=== PATIENT | female | born 1955 | race Caucasian/White ===

== ENCOUNTER 2017-09-08 08:52 | Observation (INO) | payer MEDICAID, SELFPAY ==
[2017-09-08] VITALS (8 sets, daily range): BP systolic 132–198; BP diastolic 73–107; PULSE 84–107; RESP 13–22; TEMP 36.2–36.9; O2SAT 95–98; BMI 32.0; BMI 31.7
--- NOTE | 2017-09-08 09:17 | CT_ITS ---
STUDY: CT BRAIN WITHOUT CONTRAST REASON FOR EXAM: Female, 62 years old. One month history of dizziness. RADIATION DOSAGE (If Supplied By Facility): CTDIvol = ( 44.99 ) mGy, DLP = ( 829.85 ) mGycm TECHNIQUE: Transaxial CT imaging of the brain was performed without administration of intravenous contrast material. Individualized dose optimization techniques were used for this CT. COMPARISON: Comparison is made with prior study dated August 14, 2015. FINDINGS: Normal soft tissue structures. Normal calvarium. There is mild cerebral atrophy with widening of the extra-axial spaces and ventricular dilatation. Normal white matter tracts of the cerebral hemispheres. Normal basal ganglia and thalami. Normal brainstem. Normal cerebellum. There is no intracranial hemorrhage. There are no findings of an acute ischemic infarction. Atherosclerotic calcification of the cavernous portions of the internal carotid arteries bilaterally. Normal visualized paranasal sinuses. CT/Brain/Head without Contrast IMPRESSION: Chronic involutional changes of the brain. Electronically Signed: Doug Brown MD at 12:17 EDT Tel [phone], Service support ,
--- NOTE | 2017-09-08 09:17 | EKG12_ITS ---
Test Reason : DIZZINESS Blood Pressure : / mmHG Vent. Rate : 097 BPM Atrial Rate : 097 BPM P-R Int : 188 ms QRS Dur : 084 ms QT Int : 374 ms P-R-T Axes : 050 -18 -04 degrees QTc Int : 474 ms Normal sinus rhythm Septal infarct , age undetermined Abnormal ECG Confirmed by MILTON ARREOLA, JORY ([id number]), manuscript editor ITZEL QUAN ([id number]) on 09/13/2017 1:36:50 PM Referred By: Confirmed By:JORY ROSE MD
--- NOTE | 2017-09-08 09:17 | RAD_ITS ---
STUDY: X-RAY CHEST REASON FOR EXAM: Female, 62 years old. Hypertension. TECHNIQUE: Single AP portable view of the chest. COMPARISON: Comparison is made with prior study dated August 14, 2015. FINDINGS: Hyperinflation. The lungs are clear. There is no demonstrated pleural abnormality. There is mild cardiac enlargement. Normal mediastinum and josselin. Normal visualized pulmonary arteries. Normal visualized aortic arch and descending thoracic aorta. Normal visualized thoracic spine. Normal visualized ribs, clavicles, and shoulders. There is no demonstrated abnormality of the visualized soft tissue structures of the upper abdomen. RAD/Chest 1 View (Portable) IMPRESSION: Hyperinflation. Mild cardiomegaly. No acute abnormality is seen. Electronically Signed: Doug Brown MD at 10:28 EDT Tel [phone], Service support ,
[2017-09-08 10:01] LABS: Absolute Lymphocyte Count 1.49 X10^3/ul (0.83-4.51); Absolute Neutrophil Count 4.6 X10^3/uL (2.0-7.7); Basophil# 0.03 X10^3/uL; Basophil% 0.5 % (0-1); Eosinophil# 0.06 X10^3/uL; Eosinophils% 0.9 % (0-5); Hematocrit 44.1 % (37-47); Hemoglobin 14.8 g/dl (12.0-15.0); Lymphocyte # 1.49 X10^3/ul (4.0); Lymphocyte % 22.4 % (19-41); Mean Corp Hgb Conc 33.6 g/gl (32-36); Mean Corpuscular Hgb 30.3 pg (27.0-32.0); Mean Corpuscular Volume 90.4 fL (81-99); Mean Platelet Vol. 9.9 fl (6.2-12.0); Monocyte# 0.49 X10^3/uL; Monocyte% 7.4 % (0-10); Neutrophil # 4.58 X10^3/uL (2.7-7.7); Neutrophil % 68.6 % (47-70); Platelet Count 259 K/mm3 (150-450); RBC Distribution Width CV 13.8 % (11.6-14.6); RBC Distribution Width SD 45.6 fl (35.1-43.9); Red Blood Count 4.88 M/mm3 (4.2-5.4); White Blood Count 6.7 K/mm3 (4.4-11.0)
[2017-09-08 10:02] LABS: POSITIVE COUNT NO; POSITIVE DIFFERENTIAL NO; POSITIVE MORPHOLOGY NO
[2017-09-08 10:16] LABS: Anion Gap 6 (5-15); BUN 16 mg/dL (7-18); BUN/Creat Ratio 12.3 RATIO (10-20); Calcium,Total 8.7 mg/dL (8.5-10.1); Chloride 102 mmol/L (98-107); EST Glomerular Filtration Rate 44 mL/min (>60); Est Glom Filt Rate - Afr Amer 53 mL/min (>60); Estimated Creatinine Clearance 45.69 ml/min; Glucose 153 mg/dL (74-106); Potassium 4.5 mmol/L (3.5-5.1); Sodium Level 136 mmol/L (136-145)
[2017-09-08] MEDS: Acetaminophen 500 MG Tablet 1000 MG PO (10:32)
[2017-09-08] MEDS: 0.9% Normal Saline 1,000 ML 150 ML IV (10:33)
[2017-09-08 10:52] LABS: Bacteria 0 SEEN /hpf (None Seen); Mucous, Urine 0 SEEN /hpf (<or=2+)
[2017-09-08 10:54] LABS: Color, Urine Yellow (Yellow); Glucose, Dipstick Normal (Normal); Ketone-Dipstick Negative (Negative); Leukocyte Esterase-Dipstick 25 /ul (Negative); Nitrite-Dipstick Negative (Negative); Occult Blood-Urine 10 /ul (Negative); Protein-Dipstick 15 mg/dl (Negative); Urine Bilirubin Dipstick Negative (Negative); Urine Clarity Sl. Cloudy (Clear); Urine Urobilinogen Normal (Normal)
[2017-09-08 11:00] LABS: Red Blood Cells-Urine 0-5 SEEN /hpf (0-5); Squamous Epithelial Cells - UA 0-5 SEEN /hpf (5-10); White Blood Cells 0-5 SEEN /hpf (0-5)
[2017-09-08] MEDS: Ondansetron 4 MG/2 ML Vial IV (12:29)
--- NOTE | 2017-09-08 13:26 | ED.VISSUMM ---
- ER Visit Summary Date of Service: 09/08/17 Chief Complaint: [Dizziness] History of Present Illness: The patient is a 62 F [presents to the emergency department with dizziness that has been ongoing for 2-3 months. Patient states she has not been feeling well for almost a year now. Patient states that she has been falling frequently and is been very off balance. Patient states that she has to walk while holding onto colon. She finally came in today because she cannot do her activities of daily living and has had a hard time even wanting the shower due to the dizziness. Patient's had some intermittent sharp pains in her head. Patient's been under increased stress of late. Patient's had diarrhea for about a week.] Physical Examination: [HEENT-PERRLA, EOMI. Cranial nerves II through XII grossly intact. TMs clear. Mucous membranes moist. No adenopathy. Cardiovascular-regular rate and rhythm without murmur or ectopy Lungs-clear to auscultation, chest wall stable without crepitus or subcu emphysema Abdomen-normoactive bowel sounds, soft, nontender, no rebound or rigidity, no peritoneal signs. Neuro cmgo-fajszf-fnuu and heel hodge testing within normal limits, negative Romberg, negative pronator drift, fundi benign. Hallpike testing was negative for nystagmus Extremities-intact ?4, normal range of motion, normal pulses, atraumatic] Test Results: [EKG obtained arrival shows sinus rhythm with ventricular rate of 97 bpm with old septal infarct noted. CBC with differential showed a white count of 6.7, hemoglobin 14.8, hematocrit 44, platelets 259. Chemistries unremarkable. Troponin was less than 0.015. Orthostatic vital signs were negative. Chest x-ray showed some mild cardiomegaly and hyperinflation. CT scan of the brain without contrast showed chronic changes.] Emergency Department Course and Treatment: [Patient received normal saline] Treatment Plan: [Admit for further workup and evaluation of her dizziness]. At this point it is unclear the etiology of her dizziness and feeling of difficulty with balance. I feel patient will require further workup beyond our ability to perform in the emergency department. Disposition: [Admit] Impression: [Dizziness-etiology uncertain] This note was generated with [employer] dictation software. It may contain incorrect words, spelling, and punctuation that were not noted in review of the chart prior to signing ED Disposition - Plan for ED Patient: Chief Complaint: Dizziness Referrals: Crystal Earl MD [Primary Care Provider] -
--- NOTE | 2017-09-08 13:29 | ED.DCSUM_ITS ---
- ER Visit Summary Date of Service: 09/08/17 Chief Complaint: [Dizziness] History of Present Illness: The patient is a 62 F [presents to the emergency department with dizziness that has been ongoing for 2-3 months. Patient states she has not been feeling well for almost a year now. Patient states that she has been falling frequently and is been very off balance. Patient states that she has to walk while holding onto colon. She finally came in today because she cannot do her activities of daily living and has had a hard time even wanting the shower due to the dizziness. Patient's had some intermittent sharp pains in her head. Patient's been under increased stress of late. Patient's had diarrhea for about a week.] Physical Examination: [HEENT-PERRLA, EOMI. Cranial nerves II through XII grossly intact. TMs clear. Mucous membranes moist. No adenopathy. Cardiovascular-regular rate and rhythm without murmur or ectopy Lungs-clear to auscultation, chest wall stable without crepitus or subcu emphysema Abdomen-normoactive bowel sounds, soft, nontender, no rebound or rigidity, no peritoneal signs. Neuro pgyv-vkcpng-ctmn and heel hodge testing within normal limits, negative Romberg, negative pronator drift, fundi benign. Hallpike testing was negative for nystagmus Extremities-intact ?4, normal range of motion, normal pulses, atraumatic] Test Results: [EKG obtained arrival shows sinus rhythm with ventricular rate of 97 bpm with old septal infarct noted. CBC with differential showed a white count of 6.7, hemoglobin 14.8, hematocrit 44, platelets 259. Chemistries unremarkable. Troponin was less than 0.015. Orthostatic vital signs were negative. Chest x-ray showed some mild cardiomegaly and hyperinflation. CT scan of the brain without contrast showed chronic changes.] Emergency Department Course and Treatment: [Patient received normal saline] Treatment Plan: [Admit for further workup and evaluation of her dizziness]. At this point it is unclear the etiology of her dizziness and feeling of difficulty with balance. I feel patient will require further workup beyond our ability to perform in the emergency department. Disposition: [Admit] Impression: [Dizziness-etiology uncertain] This note was generated with [employer] dictation software. It may contain incorrect words, spelling, and punctuation that were not noted in review of the chart prior to signing ED Disposition - Plan for ED Patient: Chief Complaint: Dizziness Referrals: Crystal Earl MD [Primary Care Provider] -
--- NOTE | 2017-09-08 14:51 | MRI_ITS ---
STUDY: MRI BRAIN WITHOUT CONTRAST REASON FOR EXAM: Female, 62 years old. Weakness and dizziness TECHNIQUE: Standardized multiplanar fat and water weighted pulse sequences were obtained. COMPARISON: CT of the brain on September 08, 2017 FINDINGS: Mild atrophy and periventricular white matter ischemic changes without evidence for acute infarct.. There does appear to be an old lacunar infarct in the body of the left caudate nucleus extending into the deep white matter tracts Normal bilateral basal ganglia. Normal thalami. There is no extra-axial fluid accumulation. Normal flow voids within the major intracranial circulation suggesting patency by spin echo criteria. Normal sella turcica, pituitary gland, infundibular stalk, optic chiasm and hypothalamus. Normal tectal plate and pineal gland. Normal midbrain, delroy and medulla. Normal cerebellum. Normal basal cisterns. Normal bilateral temporal bones. Normal bilateral internal auditory canals. Postsurgical changes of the orbits.. Normal visualized paranasal sinuses. Normal calvarium and skull base. Normal visualized soft tissue structures. Normal visualized upper cervical spine. No change since prior exam MRI/Brain without Contrast IMPRESSION: Mild atrophy and periventricular white matter ischemic changes without evidence for acute infarct. Old lacunar infarct involving the body of the left caudate nucleus extending into the deep white matter tracts. Electronically Signed: Gianfranco Goyal MD at 16:49 EDT , Service support ,
[2017-09-08] MEDS: oxyCODONE 5 MG Tablet 10 MG PO ×2 (17:09→23:09)
[2017-09-08] MEDS: Lisinopril 20 MG Tablet PO (17:09)
--- NOTE | 2017-09-08 19:47 | PCM.HP.STD ---
Problem List (1) Lightheadedness Status: Acute (2) Unsteady gait Status: Acute (3) Headache Status: Acute Qualifiers: Headache type: unspecified Headache chronicity pattern: unspecified pattern History of Present Illness Date of Admission: 09/08/17 Chief Complaint: Lightheadedness, weakness, unsteady gait, headache The patient is a 62 year old F who was seen in the emergency room at [facility] with a chief complaint of lightheadedness, unsteady gait, and headache type pains. She complained that she is felt unsteady on her feet for the last 3 months, she complained to this examiner that she had pains shooting into her skull (pointing to her occipital area) that she described as jolts today. Patient states that she mentioned to her family doctor at her last physician's visit in June that she had trouble walking at times but according to the patient, there was no comment from the position. Patient also stated that earlier this year at her office visit, her blood pressure was elevated but she states she return to the office at a later date and her blood pressure was normal. Patient's blood pressure in the emergency room today is been highly elevated, labs were obtained on the patient and were remarkable for a creatinine of 1.3. Patient had a CT of the brain that showed only involutional changes. Patient will be placed into observation status on [facility] for complaints of lightheadedness and unsteady gait, she will undergo an MRI, she will be seen by PT and OT, her blood pressures will be monitored and her blood pressure medications may need to be adjusted. Past Medical History Past Medical History (Chronic Problems): Chronic Problems HTN (hypertension) (Chronic) Tobacco use disorder (Chronic) Esophageal reflux (Chronic) Depressive disorder (Chronic) Back ache (Chronic) Irritable bowel syndrome (IBS) (Chronic) Anxiety disorder (Chronic) Allergies duloxetine HCl [From Cymbalta] Adverse Reaction (Verified 09/08/17 08:58) Other morphine Adverse Reaction (Verified 09/08/17 08:58) Itching pramipexole di-HCl [From Mirapex] Adverse Reaction (Verified 09/08/17 08:58) Other Sulfa (Sulfonamide Antibiotics) Adverse Reaction (Verified 09/08/17 08:58) Unknown tramadol HCl [From Ultram] Adverse Reaction (Verified 09/08/17 08:58) Itching varenicline [From Chantix] Adverse Reaction (Verified 09/08/17 16:49) Unknown Home Medications: Ambulatory Orders Medication Instructions Recorded Acyclovir [Zovirax] 400 mg PO BID 08/20/13 Amitriptyline HCl [Elavil] 100 - 150 mg PO QHS 08/20/13 Lisinopril [Zestril] 10 mg PO DAILY 08/20/13 Nitroglycerin [Nitrostat] 0.4 mg SL PRN PRN 08/20/13 Oxycodone [Oxyir] 10 mg PO Q6H PRN PRN #40 tablet 09/05/13 Clonazepam [Klonopin] 1 mg PO QHS 08/14/15 Clopidogrel Bisulfate [Plavix] 75 mg PO DAILY 08/14/15 Metoprolol Tartrate [Lopressor 25 mg PO BID 08/14/15 (beta codie)] Tizanidine HCl [Zanaflex] 4 mg PO BID PRN PRN 08/14/15 Albuterol Inhaler [Ventolin Hfa 2 puff INHALATION Q4H PRN PRN 09/08/17 (SP)] Aspirin [Aspirin, Baby] 81 mg PO DAILY@0800 09/08/17 Atorvastatin Calcium [Lipitor] 80 mg PO QHS 09/08/17 Dicyclomine HCl [Bentyl] 10 mg PO ACHS 09/08/17 Nystatin Powder [Mycostatin Powder] 1 applic TOPICAL 4X/DAY PRN PRN 09/08/17 Omeprazole 40 mg PO BID 09/08/17 Polyethylene Glycol 3350 [Miralax] 17 gm PO DAILY 09/08/17 Triamcinolone 0.025% Cream 1 applic TOPICAL BID PRN 09/08/17 [Kenalog] Surgical History: - - Uterine suspension, coronary artery stent placement Psychiatric History: Anxiety, Depression THERAPY DIRECTOR History: No pertinent THERAPY DIRECTOR history Lives: Spouse/ Significant Other Smoking Status: Current every day smoker Tobacco Use: Cigarettes Alcohol: Occasional Drugs: None - *Family History Maternal History Items: No pertinent history - Patient was adopted Paternal History Items: No pertinent history - Was adopted Review of Systems Constitutional: Denies: Anorexia, Chills, Fever, Night Sweats, Malaise, Weakness, Weight Change, Fatigue Eyes: Denies: Blurred vision, Cataracts, Conjunctivae Inflammation, Double vision, Drainage, Eyelid Inflammation HEENT: Reports: Head Aches. Denies: Difficulty Hearing, Difficulty Swallowing, Dysphasia, Ear Pain, Eye Pain, Hearing Changes, Nasal bleeding, Nasal Congestion, Post Nasal Drip Cardiovascular: Reports: Light Headedness. Denies: Chest Pain, Claudication, Chest Pressure, Chest Tightness, Edema, Heaviness, Orthopnea, Palpitations, Paroxysmal Noc. Dyspnea, Syncope Respiratory: Denies: Cough, Hemoptysis, Pleuritic Pain, Shortness of Breath, Shortness of breath at rest, Shortness of breath upon exertion, Sputum production, Wheezing Gastrointestinal: Denies: Abdominal Pain, Constipation, Diarrhea, Hematemesis, Hematochezia, Nausea, Melena, Vomiting Genitourinary: Denies: Dysuria, Frequency, Hematuria, Hesitancy, Incontinence, Nocturia, Retention, Urgency Gynecological: Denies: Breast symptoms Musculoskeletal: Reports: Back Pain, Joint Pain. Denies: Foot Pain, Hand Pain, Joint stiffness, Joint swelling, Joint Tenderness, Leg Pain Skin: Denies: Dryness, Pruritis, Rash Neurological: Reports: Balance problems, Headaches. Denies: Blurred vision, Double vision, Change in Speech, Slurred speech, Confusion, Difficulty swallowing, Focal weakness, Numbness, Tingling, Tremor, Seizures Psychiatric: Reports: Anxiety, Depression. Denies: Homicidal Ideations, Suicidal Ideations Endocrine: Denies: Change in Body Habitus, Heat/ Cold Intolerance, Polydipsia, Polyuria Hematologic/ Lymphatic: Denies: Adenopathy, Anemia, Easy Bruising, Easy Bleeding, Petechiae, Purpura VTE Information - Inpt Only VTE Present on Admission: No VTE Mechan Device Prophylaxis: None VTE Pharm Prophylaxis ordered?: Yes Patient Problems: Active and Suspected Problems Lightheadedness (Acute) Unsteady gait (Acute) Headache (Acute) - Physical Exam General: Alert, Oriented x3, Cooperative, No apparent distress, Well developed, Well nourished HEENT: Atraumatic, PERRLA, EOMI, Normocephalic Oral: Moist Mucosa Neck: Supple, No JVD, Negative Carotid Bruits, No Nuchal Rigidity, Trachea Midline, Thyroid Normal Size and Texture Lungs: Clear to auscultation, Normal air movement, No rhonchi, No wheeze, No rales Cardiovascular: Regular rate, Regular Rhythm, Normal S1, Normal S2, No murmurs, No Ectopic Activity, PMI Normal, No rub noted, No Gallop Abdomen: Bowel Sounds Present, Soft, Non Tender, Non-Distended, No hernias noted Extremities: No clubbing, No cyanosis, No edema, Capillary Refill Less than 3 Seconds Skin: No rashes, No breakdown Musculoskeletal: No Tenderness to Palpation of Joints or Extremities Neurological: Cranial nerves II-XII grossly intact, Neuro grossly intact, Sensory exam intact to light touch and pain, Coordination normal Psych/Mental Status: Normal Affect, Appropriate, Alert and oriented to time, place, person, mood and affect Vital Signs Temp Pulse Resp BP Pulse Ox 98.1 F 90 20 H 180/93 H 96 09/08/17 14:24 09/08/17 14:24 09/08/17 14:24 09/08/17 14:24 09/08/17 14:24 Oxygen Delivery Method Room Air Weight: 97.5 kg Body Mass Index (BMI) 31.7 Intake and Output for Last 24 Hours 09/06/17 09/07/17 09/08/17 23:59 23:59 23:59 Intake Total 500 / 500 Balance 500 / 500 Assessment/Plan Active and Suspected Problems Lightheadedness (Acute) Unsteady gait (Acute) Headache (Acute) #1 lightheadedness-etiology unclear-possibly secondary to anxiety, [facility], she will undergo an MRI to rule out any strokes, she will be seen by PT and OT #2 hypertensive urgency-patient's blood pressure medications will be reviewed and adjusted if necessary #3 coronary artery disease #4 anxiety disorder #5 depressive disorder #6 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
--- NOTE | 2017-09-08 20:00 | HP.PCM_ITS ---
Problem List (1) Lightheadedness Status: Acute (2) Unsteady gait Status: Acute (3) Headache Status: Acute Qualifiers: Headache type: unspecified Headache chronicity pattern: unspecified pattern History of Present Illness Date of Admission: 09/08/17 Chief Complaint: Lightheadedness, weakness, unsteady gait, headache The patient is a 62 year old F who was seen in the emergency room at [facility] with a chief complaint of lightheadedness, unsteady gait, and headache type pains. She complained that she is felt unsteady on her feet for the last 3 months, she complained to this examiner that she had pains shooting into her skull (pointing to her occipital area) that she described as jolts today. Patient states that she mentioned to her family doctor at her last physician's visit in June that she had trouble walking at times but according to the patient, there was no comment from the position. Patient also stated that earlier this year at her office visit, her blood pressure was elevated but she states she return to the office at a later date and her blood pressure was normal. Patient's blood pressure in the emergency room today is been highly elevated, labs were obtained on the patient and were remarkable for a creatinine of 1.3. Patient had a CT of the brain that showed only involutional changes. Patient will be placed into observation status on [facility] for complaints of lightheadedness and unsteady gait, she will undergo an MRI, she will be seen by PT and OT, her blood pressures will be monitored and her blood pressure medications may need to be adjusted. Past Medical History Past Medical History (Chronic Problems): Chronic Problems HTN (hypertension) (Chronic) Tobacco use disorder (Chronic) Esophageal reflux (Chronic) Depressive disorder (Chronic) Back ache (Chronic) Irritable bowel syndrome (IBS) (Chronic) Anxiety disorder (Chronic) Allergies duloxetine HCl [From Cymbalta] Adverse Reaction (Verified 09/08/17 08:58) Other morphine Adverse Reaction (Verified 09/08/17 08:58) Itching pramipexole di-HCl [From Mirapex] Adverse Reaction (Verified 09/08/17 08:58) Other Sulfa (Sulfonamide Antibiotics) Adverse Reaction (Verified 09/08/17 08:58) Unknown tramadol HCl [From Ultram] Adverse Reaction (Verified 09/08/17 08:58) Itching varenicline [From Chantix] Adverse Reaction (Verified 09/08/17 16:49) Unknown Home Medications: Ambulatory Orders Medication Instructions Recorded Acyclovir [Zovirax] 400 mg PO BID 08/20/13 Amitriptyline HCl [Elavil] 100 - 150 mg PO QHS 08/20/13 Lisinopril [Zestril] 10 mg PO DAILY 08/20/13 Nitroglycerin [Nitrostat] 0.4 mg SL PRN PRN 08/20/13 Oxycodone [Oxyir] 10 mg PO Q6H PRN PRN #40 tablet 09/05/13 Clonazepam [Klonopin] 1 mg PO QHS 08/14/15 Clopidogrel Bisulfate [Plavix] 75 mg PO DAILY 08/14/15 Metoprolol Tartrate [Lopressor 25 mg PO BID 08/14/15 (beta codie)] Tizanidine HCl [Zanaflex] 4 mg PO BID PRN PRN 08/14/15 Albuterol Inhaler [Ventolin Hfa 2 puff INHALATION Q4H PRN PRN 09/08/17 (SP)] Aspirin [Aspirin, Baby] 81 mg PO DAILY@0800 09/08/17 Atorvastatin Calcium [Lipitor] 80 mg PO QHS 09/08/17 Dicyclomine HCl [Bentyl] 10 mg PO ACHS 09/08/17 Nystatin Powder [Mycostatin Powder] 1 applic TOPICAL 4X/DAY PRN PRN 09/08/17 Omeprazole 40 mg PO BID 09/08/17 Polyethylene Glycol 3350 [Miralax] 17 gm PO DAILY 09/08/17 Triamcinolone 0.025% Cream 1 applic TOPICAL BID PRN 09/08/17 [Kenalog] Surgical History: - - Uterine suspension, coronary artery stent placement Psychiatric History: Anxiety, Depression DEVELOPMENT INTERN History: No pertinent DEVELOPMENT INTERN history Lives: Spouse/ Significant Other Smoking Status: Current every day smoker Tobacco Use: Cigarettes Alcohol: Occasional Drugs: None - *Family History Maternal History Items: No pertinent history - Patient was adopted Paternal History Items: No pertinent history - Was adopted Review of Systems Constitutional: Denies: Anorexia, Chills, Fever, Night Sweats, Malaise, Weakness , Weight Change, Fatigue Eyes: Denies: Blurred vision, Cataracts, Conjunctivae Inflammation, Double vision, Drainage, Eyelid Inflammation HEENT: Reports: Head Aches. Denies: Difficulty Hearing, Difficulty Swallowing, Dysphasia, Ear Pain, Eye Pain, Hearing Changes, Nasal bleeding, Nasal Congestion , Post Nasal Drip Cardiovascular: Reports: Light Headedness. Denies: Chest Pain, Claudication, Chest Pressure, Chest Tightness, Edema, Heaviness, Orthopnea, Palpitations, Paroxysmal Noc. Dyspnea, Syncope Respiratory: Denies: Cough, Hemoptysis, Pleuritic Pain, Shortness of Breath, Shortness of breath at rest, Shortness of breath upon exertion, Sputum production, Wheezing Gastrointestinal: Denies: Abdominal Pain, Constipation, Diarrhea, Hematemesis, Hematochezia, Nausea, Melena, Vomiting Genitourinary: Denies: Dysuria, Frequency, Hematuria, Hesitancy, Incontinence, Nocturia, Retention, Urgency Gynecological: Denies: Breast symptoms Musculoskeletal: Reports: Back Pain, Joint Pain. Denies: Foot Pain, Hand Pain, Joint stiffness, Joint swelling, Joint Tenderness, Leg Pain Skin: Denies: Dryness, Pruritis, Rash Neurological: Reports: Balance problems, Headaches. Denies: Blurred vision, Double vision, Change in Speech, Slurred speech, Confusion, Difficulty swallowing, Focal weakness, Numbness, Tingling, Tremor, Seizures Psychiatric: Reports: Anxiety, Depression. Denies: Homicidal Ideations, Suicidal Ideations Endocrine: Denies: Change in Body Habitus, Heat/ Cold Intolerance, Polydipsia, Polyuria Hematologic/ Lymphatic: Denies: Adenopathy, Anemia, Easy Bruising, Easy Bleeding , Petechiae, Purpura VTE Information - Inpt Only VTE Present on Admission: No VTE Mechan Device Prophylaxis: None VTE Pharm Prophylaxis ordered?: Yes Patient Problems: Active and Suspected Problems Lightheadedness (Acute) Unsteady gait (Acute) Headache (Acute) - Physical Exam General: Alert, Oriented x3, Cooperative, No apparent distress, Well developed, Well nourished HEENT: Atraumatic, PERRLA, EOMI, Normocephalic Oral: Moist Mucosa Neck: Supple, No JVD, Negative Carotid Bruits, No Nuchal Rigidity, Trachea Midline, Thyroid Normal Size and Texture Lungs: Clear to auscultation, Normal air movement, No rhonchi, No wheeze, No rales Cardiovascular: Regular rate, Regular Rhythm, Normal S1, Normal S2, No murmurs, No Ectopic Activity, PMI Normal, No rub noted, No Gallop Abdomen: Bowel Sounds Present, Soft, Non Tender, Non-Distended, No hernias noted Extremities: No clubbing, No cyanosis, No edema, Capillary Refill Less than 3 Seconds Skin: No rashes, No breakdown Musculoskeletal: No Tenderness to Palpation of Joints or Extremities Neurological: Cranial nerves II-XII grossly intact, Neuro grossly intact, Sensory exam intact to light touch and pain, Coordination normal Psych/Mental Status: Normal Affect, Appropriate, Alert and oriented to time, place, person, mood and affect Vital Signs Temp Pulse Resp BP Pulse Ox 98.1 F 90 20 H 180/93 H 96 09/08/17 14:24 09/08/17 14:24 09/08/17 14:24 09/08/17 14:24 09/08/17 14:24 Oxygen Delivery Method Room Air Weight: 97.5 kg Body Mass Index (BMI) 31.7 Intake and Output for Last 24 Hours 09/06/17 09/07/17 09/08/17 23:59 23:59 23:59 Intake Total 500 / 500 Balance 500 / 500 Assessment/Plan Active and Suspected Problems Lightheadedness (Acute) Unsteady gait (Acute) Headache (Acute) #1 lightheadedness-etiology unclear-possibly secondary to anxiety, [facility], she will undergo an MRI to rule out any strokes, she will be seen by PT and OT #2 hypertensive urgency-patient's blood pressure medications will be reviewed and adjusted if necessary #3 coronary artery disease #4 anxiety disorder #5 depressive disorder #6 chronic pain syndrome due to DJD of the lower back Code Visit OBSV E&M: 84538 Initial observation care L3
[2017-09-08] MEDS: clonazePAM 0.5 MG Tablet 1 MG PO (21:19)
[2017-09-08] MEDS: Acyclovir 200 MG Capsule 400 MG PO (21:20)
[2017-09-08] MEDS: Metoprolol Tartrate 25 MG Tablet PO (21:20)
[2017-09-08] MEDS: Pantoprazole Sodium 40 MG Tablet PO (21:21)
[2017-09-08] MEDS: Amitriptyline 100 MG Tablet PO (21:21)
[2017-09-08] MEDS: Atorvastatin Calcium 80 MG Tablet PO (21:23)
[2017-09-08] MEDS: amLODIPine 5 MG Tablet PO (21:32)
[2017-09-09 03:56] VITALS: BP 135/71; PULSE 89; RESP 16; TEMP 37; O2SAT 93
[2017-09-09 07:27] VITALS: BP 141/73; PULSE 88; RESP 16; TEMP 36.4; O2SAT 96
[2017-09-09 07:31] LABS: Anion Gap 8 (5-15); BUN 18 mg/dL (7-18); BUN/Creat Ratio 14.4 RATIO (10-20); Calcium,Total 8.4 mg/dL (8.5-10.1); Chloride 101 mmol/L (98-107); Creatinine, Serum 1.25 mg/dL (0.55-1.02); EST Glomerular Filtration Rate 46 mL/min (>60); Est Glom Filt Rate - Afr Amer 56 mL/min (>60); Estimated Creatinine Clearance 47.52 ml/min; Glucose 130 mg/dL (74-106); Sodium Level 139 mmol/L (136-145)
[2017-09-09 07:36] VITALS: BP 141/73; PULSE 88
[2017-09-09] MEDS: Metoprolol Tartrate 25 MG Tablet PO (07:36)
[2017-09-09] MEDS: Aspirin 81 MG TAB.CHEW PO (07:36)
[2017-09-09] MEDS: Lisinopril 20 MG Tablet PO (07:36)
[2017-09-09] MEDS: oxyCODONE 5 MG Tablet 10 MG PO ×2 (07:39→14:06)
--- NOTE | 2017-09-09 08:32 | PCM.DC ---
- Discharge Diagnoses Current Active Problems: Current Active and Chronic Problems Lightheadedness (Acute) Unsteady gait (Acute) Headache (Acute) You will use the following diet at home:: Cardiac Allergies/Adverse Reactions: Allergies duloxetine HCl [From Cymbalta] Adverse Reaction (Verified 09/08/17 08:58) Other morphine Adverse Reaction (Verified 09/08/17 08:58) Itching pramipexole di-HCl [From Mirapex] Adverse Reaction (Verified 09/08/17 08:58) Other Sulfa (Sulfonamide Antibiotics) Adverse Reaction (Verified 09/08/17 08:58) Unknown tramadol HCl [From Ultram] Adverse Reaction (Verified 09/08/17 08:58) Itching varenicline [From Chantix] Adverse Reaction (Verified 09/08/17 16:49) Unknown Medications to take at Discharge Acyclovir [Zovirax] 400 mg PO BID 08/20/13 Amitriptyline HCl [Elavil] 100 - 150 mg PO QHS 08/20/13 Nitroglycerin [Nitrostat] 0.4 mg SL PRN PRN 08/20/13 Oxycodone [Oxyir] 10 mg PO Q6H PRN PRN #40 tablet 09/05/13 Clonazepam [Klonopin] 1 mg PO QHS 08/14/15 Clopidogrel Bisulfate [Plavix] 75 mg PO DAILY 08/14/15 Metoprolol Tartrate [Lopressor (beta codie)] 25 mg PO BID 08/14/15 Tizanidine HCl [Zanaflex] 4 mg PO BID PRN PRN 08/14/15 Albuterol Inhaler [Ventolin Hfa] 2 puff INHALATION Q4H PRN PRN 09/08/17 Aspirin [Aspirin, Baby] 81 mg PO DAILY@0800 09/08/17 Atorvastatin Calcium [Lipitor] 80 mg PO QHS 09/08/17 Dicyclomine HCl [Bentyl] 10 mg PO ACHS 09/08/17 Nystatin Powder [Mycostatin Powder] 1 applic TOPICAL 4X/DAY PRN PRN 09/08/17 Omeprazole 40 mg PO BID 09/08/17 Polyethylene Glycol 3350 [Miralax] 17 gm PO DAILY 09/08/17 Triamcinolone 0.025% Cream [Kenalog] 1 applic TOPICAL BID PRN 09/08/17 Amlodipine [Norvasc] 5 mg PO DAILY #60 tab 09/09/17 Lisinopril [Zestril] 20 mg PO DAILY #60 tab 09/09/17 The following prescriptions were given: Amlodipine [Norvasc] 5 mg PO DAILY #60 tab Lisinopril [Zestril] 20 mg PO DAILY #60 tab Primary Care Physician: Crystal Earl MD [Primary Care Provider] - Please follow up with your Primary Care Physician in: in 3-5 days Proposed Discharge Date: 09/09/17
--- NOTE | 2017-09-09 08:36 | DS.PCM_ITS ---
Discharge Date and Diagnosis - Problem List Patient Problems: Active and Suspected Problems Frequent falls (Acute) Lightheadedness (Acute) Unsteady gait (Acute) Headache (Acute) Date of Admission: 09/08/17 Date of Discharge: 09/09/17 - Primary Discharge Diagnosis Active and Suspected Problems Lightheadedness (Acute) Unsteady gait (Acute) Headache (Acute) - Secondary Discharge Diagnosis Chronic Problems HTN (hypertension) (Chronic) Tobacco use disorder (Chronic) Esophageal reflux (Chronic) Depressive disorder (Chronic) Back ache (Chronic) Irritable bowel syndrome (IBS) (Chronic) Anxiety disorder (Chronic) Hospital Course and Treatment Imaging Results: Clinical Impression(s) from Imaging Studies Brain CT 09/08/17 09:17 IMPRESSION: Chronic involutional changes of the brain. Electronically Signed: Doug Brown MD at 12:17 EDT Tel [phone], Service support , Chest X-Ray 09/08/17 09:17 IMPRESSION: Hyperinflation. Mild cardiomegaly. No acute abnormality is seen. Electronically Signed: Doug Brown MD at 10:28 EDT Tel [phone], Service support , Brain MRI 09/08/17 14:51 IMPRESSION: Mild atrophy and periventricular white matter ischemic changes without evidence for acute infarct. Old lacunar infarct involving the body of the left caudate nucleus extending into the deep white matter tracts. Electronically Signed: Gianfranco Goyal MD at 16:49 EDT , Service support , Lumbar Spine MRI 09/09/17 08:44 IMPRESSION: Multilevel degenerative changes, as described above. There is a dextroscoliosis. L4/5: There is a mild diffuse bulge. There is mild bilateral neuroforaminal stenosis. L5/S1: There is a mild diffuse bulge and a small central protrusion with an annular tear. There is mild bilateral neuroforaminal stenosis. Electronically Signed: Silvia Lopez MD at 12:41 EDT , Service support , Cervical Spine MRI 09/09/17 09:12 IMPRESSION: Multilevel degenerative changes, as described above. C3/4: There is small right foraminal protrusion. There is mild right neuroforaminal stenosis. C5/6: There is a diffuse disc osteophyte complex. There is moderate central canal stenosis and moderate to severe bilateral neuroforaminal stenosis. C6/7: There is a slight diffuse bulge. There is ligamentum flavum hypertrophy. There is mild central canal stenosis. Electronically Signed: Silvia Lopez MD at 12:30 EDT , Service support , Operations: None Summary of Care Provided: Patient is a 62 year old who with multiple comorbidities who presented with lightheadedness; was found to have markedly elevated blood pressure 1. Acute hypertensive emergency: Patient was admitted to regular nursing floor her home antihypertensive regimen was adjusted blood pressure had stabilized at the time of discharge 2. Bilateral lower extremity weakness with frequent falls neurology was consulted patient underwent subsequent evaluation with MRI of the brain which is negative for acute CVA also underwent MRI of the lumbar as well as cervical spine which demonstrated degenerative joint disease. Neurology recommended obtaining ESR, CPK, Vitamin B12, TSH, RANDY, RF, ANCA, SSA/SSB AB, SPEP with LISY and UPEP with LISY test ordered prior to patient discharge with plans for patient to follow-up with neurology for the result. Plan is also for patient to follow-up with neurology as outpatient for EMG and nerve conduction studies involving both lower extremities as outpatient 3. CAD with previous history of septal IA which was thought to be secondary to ruptured plaque patient underwent subsequent left heart catheterization which failed to demonstrate any obstructive lesions patient has since been managed with medical therapy 4. Hypertension patient blood pressure uncontrolled. Continue with home medications with doses adjusted as needed 5. Dyslipidemia patient is on atorvastatin did continue with home dose 6. Depression with anxiety patient is on both amitriptyline as well as clonazepam and continue with home doses 7. Tobacco dependence patient was counseled on cessation offered nicotine patch for tobacco cravings 8. Obesity with BMI of 32.1 9. DVT prophylaxis?Lovenox Discharge Diet: Low fat/ Low Cholesterol Home Medications: Medications to take at Discharge Acyclovir [Zovirax] 400 mg PO BID 08/20/13 Amitriptyline HCl [Elavil] 100 - 150 mg PO QHS 08/20/13 Nitroglycerin [Nitrostat] 0.4 mg SL PRN PRN 08/20/13 Oxycodone [Oxyir] 10 mg PO Q6H PRN PRN #40 tablet 09/05/13 Clonazepam [Klonopin] 1 mg PO QHS 08/14/15 Clopidogrel Bisulfate [Plavix] 75 mg PO DAILY 08/14/15 Metoprolol Tartrate [Lopressor (beta codie)] 25 mg PO BID 08/14/15 Tizanidine HCl [Zanaflex] 4 mg PO BID PRN PRN 08/14/15 Albuterol Inhaler [Ventolin Hfa] 2 puff INHALATION Q4H PRN PRN 09/08/17 Aspirin [Aspirin, Baby] 81 mg PO DAILY@0800 09/08/17 Atorvastatin Calcium [Lipitor] 80 mg PO QHS 09/08/17 Dicyclomine HCl [Bentyl] 10 mg PO ACHS 09/08/17 Nystatin Powder [Mycostatin Powder] 1 applic TOPICAL 4X/DAY PRN PRN 09/08/17 Omeprazole 40 mg PO BID 09/08/17 Polyethylene Glycol 3350 [Miralax] 17 gm PO DAILY 09/08/17 Triamcinolone 0.025% Cream [Kenalog] 1 applic TOPICAL BID PRN 09/08/17 Amlodipine [Norvasc] 5 mg PO DAILY #60 tab 09/09/17 Lisinopril [Zestril] 20 mg PO DAILY #60 tab 09/09/17 Following Prescrptions Were Given to Patient: Amlodipine [Norvasc] 5 mg PO DAILY #60 tab Lisinopril [Zestril] 20 mg PO DAILY #60 tab Primary Care Physician: Crystal Earl MD [Primary Care Provider] - Please follow up with your Primary Care Physician in: in 3-5 days Please Follow Up With: Jorge Mckenzie MD When: in 2-4 weeks Disposition: Home Minutes spent on discharge:: 35 Patient Condition:: Stable Medical Necessity - Tobacco Use Smoking Status: Current every day smoker Tobacco Use: Cigarettes Meaningful Use Info Meaningful Use Diagnoses (Choose all that apply): None applicable Code Visit OBSV E&M: 67215 Observation care discharge
--- NOTE | 2017-09-09 08:44 | MRI_ITS ---
STUDY: MRI LUMBAR SPINE WITHOUT CONTRAST REASON FOR EXAM: Female, 62 years old. increasing extremity weakness over the last few weeks TECHNIQUE: Standardized fat and water weighted pulse sequences were obtained in the sagittal and axial planes. COMPARISON: None FINDINGS: Normal lumbar lordosis. There is a dextroscoliosis of the lumbar spine. Normal conus medullaris that terminates at the T12-L1 level. There is no spondylolisthesis. There is severe loss of disc height at L4-5. There is loss of disc height at L5-S1. Vertebral body heights are maintained. There are Modic type II changes at L4-5. There is mild multilevel facet arthropathy and ligamentum flavum hypertrophy. T12/L1: Sagittal images only were obtained. Normal. L1/2: There is a minimal broad-based right paracentral protrusion causing impression on the right ventral thecal sac without neuroforaminal stenosis. L2/3: There is a minimal diffuse bulge causing impression on the ventral thecal sac and minimal right without left neuroforaminal stenosis. L3/4: There is a minimal right foraminal protrusion causing minimal right neuroforaminal stenosis without central canal or left neuroforaminal stenosis. L4/5: There is a mild diffuse bulge. There is no central canal stenosis. There is mild bilateral neuroforaminal stenosis. L5/S1: There is a mild diffuse bulge and a small central protrusion with an annular tear. There is no central canal stenosis. There is mild bilateral neuroforaminal stenosis. Normal visualized sacral ala. Normal visualized paraspinous soft tissue structures. MRI/Spine Lumbar (Routine) IMPRESSION: Multilevel degenerative changes, as described above. There is a dextroscoliosis. L4/5: There is a mild diffuse bulge. There is mild bilateral neuroforaminal stenosis. L5/S1: There is a mild diffuse bulge and a small central protrusion with an annular tear. There is mild bilateral neuroforaminal stenosis. Electronically Signed: Silvia Lopez MD at 12:41 EDT , Service support ,
[2017-09-09] MEDS: 0.9% NaCl Peripheral Flush Adult/Peds IV (09:11)
[2017-09-09] MEDS: LORazepam 2 MG/ML Syringe 1 MG IV (09:12)
--- NOTE | 2017-09-09 09:12 | MRI_ITS ---
STUDY: MRI CERVICAL SPINE WITHOUT CONTRAST REASON FOR EXAM: Female, 62 years old. increasing extremity weakness over the last few weeks TECHNIQUE: Standardized fat and water weighted pulse sequences were obtained in the sagittal and axial planes. COMPARISON: None FINDINGS: Normal foramen magnum and brainstem-cervical cord junction. Normal craniovertebral junction. Normal anterior atlantoaxial articulation. Normal odontoid process. Normal cervical lordosis. There is retrolisthesis at C5-6. There is severe loss of disc height at C5-6. Vertebral body heights are maintained. C2/3: Normal. C3/4: There is small right foraminal protrusion. There is no central canal or left neuroforaminal stenosis. There is mild right neuroforaminal stenosis. C4/5: There is small right foraminal protrusion. There is no central canal or neuroforaminal stenosis. C5/6: There is a diffuse disc osteophyte complex. There is moderate central canal stenosis and moderate to severe bilateral neuroforaminal stenosis. C6/7: There is a slight diffuse bulge. There is ligamentum flavum hypertrophy. There is mild central canal stenosis without neuroforaminal stenosis. C7/T1: Normal. Normal cervical cord. Normal visualized soft tissue structures. MRI/Spine Cervical (Routine) IMPRESSION: Multilevel degenerative changes, as described above. C3/4: There is small right foraminal protrusion. There is mild right neuroforaminal stenosis. C5/6: There is a diffuse disc osteophyte complex. There is moderate central canal stenosis and moderate to severe bilateral neuroforaminal stenosis. C6/7: There is a slight diffuse bulge. There is ligamentum flavum hypertrophy. There is mild central canal stenosis. Electronically Signed: Silvia Lopez MD at 12:30 EDT , Service support ,
--- NOTE | 2017-09-09 09:14 | NURSING ---
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 Lacey had ordered Ativan prn. This RN entered order and called pharmacy to have verified. Once verified this RN entered room and patient's bed unplugged and moved preparing for patient to be transported to MRI. This RN then gave med. Original Note: pt leaving unit at this time for MRI
--- NOTE | 2017-09-09 09:28 | NURSING ---
at 0923 this RN called MRI and notified them that patient has nicotene patch to right upper arm. Understanding verbalized.
--- NOTE | 2017-09-09 09:29 | NURSING ---
This RN called Dr. Mckenzies office to notify him of consult for patient. also notified answering service that patient is currently off unit for MRI. This RN was notified by tigre Sanford RN that Dr. Mckenzie had just left the unit and was upset that patient was not here.
--- NOTE | 2017-09-09 10:23 | CASEMGMT ---
Addendum entered by Raphael Collins 09/09/17 12:24: KIARRA LOVELACE discussed homegoing with pt. She has S.O. who can assist. Is ambulatory in room, awaiting MRI results to be completed prior to dc. Script for Tub Bench given. Pt will buy cane @ [employer]. Leighann BSN AC Original Note: KIARRA LOVELACE reviewed plan with Dr. Mckenzie who recommends PT/OT evaluations, he states can be completed prior to final read on MRI and pt may need possible transfer depending on MRI results (possible cord compression). KIARRA LOVELACE spoke with PT/OT re:and recommended if they have questions, can speak with physician. Will review their evaluation and assist with any dc planning needs. [facility]Network facilities if transfer is recommended: [facility], [facility], [facility], [facility], [facility], [facility], [facility], [facility].
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
[2017-09-09] MEDS: amLODIPine 5 MG Tablet PO (11:04)
[2017-09-09] MEDS: Acyclovir 200 MG Capsule 400 MG PO (11:04)
[2017-09-09] MEDS: Clopidogrel Bisulfate 75 MG Tablet PO (11:05)
--- NOTE | 2017-09-09 11:12 | NURSING ---
Addendum entered by Supriya Patel 09/09/17 11:49: dr. tian notified of same- states patient must wait until results of MRI return or she can leave AMA. Original Note: Patient becoming agitated that she is not discharged yet. Dr. Tian was in with patient this morning and stated that patient would need MRI, consult with Dr. Mckenzie and therapy prior. Patient reminded that therapy still has to see her and then we must wait for results of MRI. Patient angry and states that she will just get up and leave. Patient's significant other very effective in calming patient.
[2017-09-09 11:34] LABS: Thyroid Stim Hormone (TSH) 4.24 uIU/mL (0.358-3.74)
--- NOTE | 2017-09-09 12:53 | NURSING ---
Addendum entered by Supriya Patel 09/09/17 12:59: rose ortega called at this time and states that she just finished drawing labs that were ordered. Original Note: While Dr. Mckenzie was on unit- labs were ordered by him. This RN attempted to call lab to notify them, in case patient left AMA, however, phone was busy. At this time- was able to notify rose berry- that patient is anxious to leave and if labs could be drawn soon that would be preferrable.
--- NOTE | 2017-09-09 13:03 | NURSING ---
This RN texted Dr. Lacey notifying him that he can review the MRI results and also was asked to confirm pending discharge. Then, this RN called Dr. Mckenzie's office and notified them that the MRI results were available for him to review. Staff in office notified him of same.
[2017-09-09 13:25] LABS: Erythrocyte Sedimentation Rate 9 mm/hr (0-30)
[2017-09-09 13:30] VITALS: BP 132/72; PULSE 85; RESP 18; TEMP 36.9; O2SAT 95
[2017-09-09 13:41] LABS: CPK Total, Creatine Kinase 56 U/L (26-192)
[2017-09-09 13:45] LABS: CRP 8.43 mg/L (0.0-3.0)
[2017-09-09 14:00] LABS: Vitamin B12 419 pg/mL (211-911)
--- NOTE | 2017-09-09 14:34 | NURSING ---
Dr. Lacey called this RN and states it is ok to d/c patient at this time if a outpatient follow up appt is scheduled with Dr. Mckenzie's office prior to her leaving floor. Same completed by this RN and patient and significant other educated regarding appointment and date and time scheduled-= understanding verbalized.
[2017-09-12 14:52] LABS: ANTINUCLEAR ANTIBODIES DIRECT Negative (Negative)
[2017-09-14 14:08] LABS: Albumin 3.3 g/dL (2.9-4.4); Alpha-1-Globulins 0.3 g/dL (0.0-0.4); Alpha-2-Globulins 0.8 g/dL (0.4-1.0); Cytoplasmic Ab (C-ANCA) <1:20 titer (Neg:<1:20); Immunoglobulin A 170 mg/dL (87-352); Immunoglobulin G 794 mg/dL (700-1600); Immunoglobulin M 108 mg/dL (26-217); PROEL- TOTAL PROTEIN 6.5 g/dL (6.0-8.5)
[2017-09-14 14:16] LABS: Perinuclear Ab (P-ANCA) <1:20 titer (Neg:<1:20)
== END 2017-09-09 14:30 | disposition home or self-care (01) ==
LOC: ED 10:19 → MS2 14:02
PROVIDERS: Psychiatry & Neurology Neurology; Admitting Provider Internal Medicine; Emergency Provider Emergency Medicine; Family Provider Internal Medicine; PCP Internal Medicine; Visit Provider Internal Medicine
DX: R42 Dizziness and giddiness (principal); R51 Headache; R26.89 Other abnormalities of gait and mobility; I10 Essential (primary) hypertension; K21.9 Gastro-esophageal reflux disease without esophagitis; K58.9 Irritable bowel syndrome, unspecified; I16.1 Hypertensive emergency; I25.10 Atherosclerotic heart disease of native coronary artery without angina pectoris; E78.5 Hyperlipidemia, unspecified; F41.8 Other specified anxiety disorders; I25.2 Old myocardial infarction; R29.6 Repeated falls; F17.210 Nicotine dependence, cigarettes, uncomplicated; E66.9 Obesity, unspecified; Z79.899 Other long term (current) drug therapy; Z79.02 Long term (current) use of antithrombotics/antiplatelets; Z79.82 Long term (current) use of aspirin; Z68.31 Body mass index [BMI] 31.0-31.9, adult; Z71.3 Dietary counseling and surveillance; M47.896 Other spondylosis, lumbar region
CPT/HCPCS: 36415; 70450; 70551; 71045; 72141; 72148; 80048; 81001; 82550; 82607; 82784; 83036; 84165; 84166; 84443; 84484; 85025; 85652; 86038; 86140; 86225; 86226; 86235; 86256; 86334; 86335; 86431; 93005; 96361; 96374; 96375; 97162; 97166; 99218; 99285; 99406; J7030; A4216; G0378

== ENCOUNTER 2018-01-22 19:12 | Emergency (ER) | payer MEDICAID, SELFPAY ==
[2018-01-22 19:13] VITALS: BP 157/76; PULSE 89; RESP 18; TEMP 37.1; O2SAT 92; BMI 31.3
== END 2018-01-22 19:13 | disposition left against medical advice (07) ==
LOC: ED 20:04
PROVIDERS: Emergency Provider Emergency Medicine; Family Provider Internal Medicine; PCP Internal Medicine
DX: S40.811A Abrasion of right upper arm, initial encounter (principal)

== ENCOUNTER 2018-03-08 11:43 | Emergency (ER) | payer MEDICAID, SELFPAY ==
[2018-03-08] VITALS (8 sets, daily range): BP systolic 144–189; BP diastolic 62–94; PULSE 91–110; RESP 14–18; TEMP 36.7; O2SAT 95–97; BMI 31.0
--- NOTE | 2018-03-08 11:51 | EKG12_ITS ---
Test Reason : PSYCH CLEARANCE Blood Pressure : / mmHG Vent. Rate : 098 BPM Atrial Rate : 098 BPM P-R Int : 208 ms QRS Dur : 120 ms QT Int : 374 ms P-R-T Axes : 075 -43 083 degrees QTc Int : 477 ms Sinus rhythm with Premature atrial complexes Left axis deviation Left ventricular hypertrophy with QRS widening and repolarization abnormality Cannot rule out Septal infarct , age undetermined Abnormal ECG Confirmed by MILTON ARREOLA, JORY ([id number]), assistant editor ITZEL QUAN ([id number]) on 03/09/2018 3:51:35 PM Referred By: SUZANNA Confirmed By:JORY ROSE MD
[2018-03-08 12:19] LABS: Bacteria 0 SEEN /hpf (None Seen); Mucous, Urine 0 SEEN /hpf (<or=2+); Red Blood Cells-Urine 0 SEEN /hpf (0-5)
[2018-03-08 12:29] LABS: Absolute Lymphocyte Count 2.46 X10^3/ul (0.83-4.51); Absolute Neutrophil Count 5.2 X10^3/uL (2.0-7.7); Basophil# 0.02 X10^3/uL; Basophil% 0.2 % (0-1); Eosinophil# 0.11 X10^3/uL; Eosinophils% 1.3 % (0-5); Hematocrit 44.6 % (37-47); Hemoglobin 14.6 g/dl (12.0-15.0); Lymphocyte # 2.46 X10^3/ul (4.0); Lymphocyte % 29.4 % (19-41); Mean Corp Hgb Conc 32.7 g/gl (32-36); Mean Corpuscular Hgb 31.3 pg (27.0-32.0); Mean Corpuscular Volume 95.7 fL (81-99); Mean Platelet Vol. 9.6 fl (6.2-12.0); Monocyte# 0.54 X10^3/uL; Monocyte% 6.4 % (0-10); Neutrophil # 5.24 X10^3/uL (2.7-7.7); Neutrophil % 62.6 % (47-70); POSITIVE COUNT NO; POSITIVE DIFFERENTIAL NO; POSITIVE MORPHOLOGY NO; Platelet Count 249 K/mm3 (150-450); RBC Distribution Width CV 14.7 % (11.6-14.6); RBC Distribution Width SD 50.9 fl (35.1-43.9); Red Blood Count 4.66 M/mm3 (4.2-5.4); White Blood Count 8.4 K/mm3 (4.4-11.0)
--- NOTE | 2018-03-08 12:32 | CT_ITS ---
STUDY: CT BRAIN WITHOUT CONTRAST REASON FOR EXAM: Female, 62 years old. Trauma. Alcohol abuse. RADIATION DOSAGE (If Supplied By Facility): CTDIvol = ( 44.99 ) mGy, DLP = ( 812.98 ) mGycm TECHNIQUE: Transaxial CT imaging of the brain was performed without administration of intravenous contrast material. Individualized dose optimization techniques were used for this CT. COMPARISON: Comparison is made with prior study dated September 08, 2017. FINDINGS: Normal soft tissue structures. Normal calvarium. There is mild cerebral atrophy with widening of the extra-axial spaces and ventricular dilatation. Normal white matter tracts of the cerebral hemispheres. Normal basal ganglia and thalami. Normal brainstem. Normal cerebellum. There is no intracranial hemorrhage. There are no findings of an acute ischemic infarction. Atherosclerotic calcification of the cavernous portions of the internal carotid artery bilaterally. Normal visualized paranasal sinuses. CT/Brain/Head without Contrast IMPRESSION: Chronic involutional changes of the brain. Electronically Signed: Doug Brown MD at 13:12 EST Tel [phone], Service support ,
[2018-03-08 12:36] LABS: Color, Urine Straw (Yellow)
[2018-03-08 12:37] LABS: Urine Clarity Sl Cldy (Clear)
--- NOTE | 2018-03-08 12:37 | ED.DCSUM_ITS ---
- ER Visit Summary Date of Service: 03/08/18 Chief Complaint: Depression with suicidal thoughts History of Present Illness: The patient is a 62 F who has had a long-standing history of depression anxiety and PTSD. She was in counseling and quit and is recently restarted counseling. She is finding it hard to get to counseling due to her anxiety and do to her being drunk. Therefore her counselor made it so that she would come to the house and do counseling. Today the patient could not guarantee her safety once the counselor left and so they came to the hospital. Patient goes through 2 large dogs of whiskey within 1 week per the . She is a smoker. The patient states that in the end of December she fell causing a laceration to her hand but started screaming in the emergency department and left without having it being treated and now states that it is healed. She states that she has fallen numerous times because of the alcohol and broke her glasses recently. She denies any current headache or neurologic weakness. She denies any change in her medications. She is on Plavix and aspirin. She has a known heart cath with stent placement about 6 years ago. Physical Examination: Afebrile vital signs are stable Gen: Well-nourished well-developed Head: Normocephalic atraumatic Eyes: Perrl EOMI patient's glasses are broken and bread tied together ENT: TMs clear no rhinorrhea moist mucous membranes Neck: Supple no lymphadenopathy no JVD nontender CVS: Regular rate rhythm no murmurs normal S1-S2 Respiratory: No distress clear to auscultation bilaterally chest nontender Abdomen: Soft nontender nondistended normal bowel sounds no masses Back: Nontender Extremity: Nontender no edema healed right palmar laceration Skin: Normal color no rash Neuro: alert orientated ?3 CN II-XII intact normal strength sensation reflexes gait cerebellar Psych: Patient is tearful. Patient admits to being depressed. She has suicidal thoughts but no plan. Test Results: EKG showed a sinus rhythm. No ectopy. Chest x-ray negative. CT of the brain showed no subdural or other intracranial hemorrhage or fracture. CBC CMP creatinine 1.13. Alk phos 136. Urinalysis negative. TSH 1.72. Magnesium 2.4. Urine drugs abuse negative. Alcohol level 246. Emergency Department Course and Treatment: Will need to metabolize her alcohol in order to be cleared for crisis. This should take roughly 7 hours. After t hat time patient will be reassessed and crisis will be called to assist in disposition. Impression: 1. Suicidal ideation 2. Major depression 3. Alcohol abuse 4. Alcohol intoxication This note was generated with [employer] dictation software. It may contain incorrect words, spelling, and punctuation that were not noted in review of the chart prior to signing <Sheldon Hurtado - Last Filed: 03/08/18 13:15> - ER Visit Summary Patient checked out to me. She remained cooperative during her visit. Her alcohol was repeated, proved to be lower, and she was evaluated by crisis. She was deemed stable for safety contract and close outpatient follow-up with discharge home with her significant other, with whom she lives and he is comfortable with this plan. Patient states she is not suicidal, cares deeply about her significant other and her dog, and would not kill herself, and does not remember saying the things to the counselor indicating that she might do so. <Aravind Carter - Last Filed: 03/08/18 21:24> ED Disposition <Sheldon Hurtado - Last Filed: 03/08/18 13:15> <Aravind Carter - Last Filed: 03/08/18 21:24> - Plan for ED Patient: Disposition: Home or Assisted Living Chief Complaint: Suicidal Diagnosis: Suicidal thoughts, Alcohol intoxication Instructions: ED Depression, ED Contract, No Harm Referrals: Counseling,Center [GROUP OF PHYSICIANS] - As soon as possible
[2018-03-08 12:38] LABS: Leukocyte Esterase-Dipstick 1+ /ul (Negative); Nitrite-Dipstick Negative (Negative); Protein-Dipstick 15 mg/dl (Negative)
[2018-03-08 12:39] LABS: Glucose, Dipstick NEGATIVE (Normal); Ketone-Dipstick Negative (Negative); Occult Blood-Urine Negative /ul (Negative); Urine Bilirubin Dipstick Negative (Negative); Urine Urobilinogen Normal (Normal)
[2018-03-08 12:40] LABS: Amphetamine Urine VISTA NEGATIVE (<1000 ng/mL); Barbiturate Urine VISTA NEGATIVE (< 200 ng/mL); Benzodiazepine Urine VISTA NEGATIVE (< 200 ng/mL); Cocaine Urine VISTA NEGATIVE (< 300 ng/mL); Ecstacy Urine VISTA NEGATIVE (< 500 ng/mL); Methadone Urine VISTA NEGATIVE (< 300 ng/mL); PCP Urine VISTA NEGATIVE (< 25 ng/mL); THC Urine VISTA NEGATIVE (< 50 ng/mL); Vista UDS pH Range 6
[2018-03-08 12:41] LABS: AST(SGOT) 27 U/L (15-37); Alanine Aminotransfer ALT/SGPT 37 U/L (13-56); Alkaline Phosphatase 136 U/L (45-117); Bilirubin, Direct 0.09 mg/dL (0.00-0.30); Globulin 4.2 g/dL (2.2-4.2); Protein, Total 8.2 g/dL (6.4-8.2)
[2018-03-08 12:44] LABS: Squamous Epithelial Cells - UA 0-5 SEEN /hpf (5-10); White Blood Cells 0-5 SEEN /hpf (0-5)
[2018-03-08 12:46] LABS: Anion Gap 8 (5-15); BUN 17 mg/dL (7-18); Calcium,Total 8.9 mg/dL (8.5-10.1); Chloride 103 mmol/L (98-107); Creatinine, Serum 1.13 mg/dL (0.55-1.02); EST Glomerular Filtration Rate 51 mL/min (>60); Est Glom Filt Rate - Afr Amer 62 mL/min (>60); Estimated Creatinine Clearance 52.56 ml/min; Glucose 118 mg/dL (74-106); Lipase 89 U/L (73-393); Sodium Level 137 mmol/L (136-145); Thyroid Stim Hormone (TSH) 1.72 uIU/mL (0.358-3.74)
--- NOTE | 2018-03-08 12:50 | RAD_ITS ---
STUDY: X-RAY CHEST REASON FOR EXAM: Female, 62 years old. Suicidal ideation. TECHNIQUE: AP and lateral views of the chest. COMPARISON: Comparison is made with prior examination dated September 08, 2017. FINDINGS: The lungs are clear and expanded. There is no demonstrated pleural abnormality. There is borderline cardiomegaly. Normal mediastinum and josselin. Normal visualized pulmonary arteries. Normal visualized aortic arch and descending thoracic aorta. There is demineralization of the osseous structures. Normal visualized ribs, clavicles, and shoulders. There is no demonstrated abnormality of the visualized soft tissue structures of the upper abdomen. RAD/Chest PA and Lateral IMPRESSION: Normal x-ray examination of the chest. Electronically Signed: Doug Brown MD at 13:15 EST Tel [phone], Service support ,
[2018-03-08 12:54] LABS: Magnesium 2.4 mg/dL (1.6-2.6)
[2018-03-08] MEDS: Pantoprazole Sodium 40 MG Tablet PO (20:47)
[2018-03-08] MEDS: oxyCODONE 5 MG Tablet 10 MG PO (20:47)
--- NOTE | 2018-03-08 20:52 | ED.RN ---
PT IS NOW MEDICALLY CLEARED SO JACK FROM CRISIS IS GOING TO SEE PT.
[2018-03-08] MEDS: clonazePAM 1 MG Tablet PO (20:53)
== END 2018-03-08 21:40 | disposition home or self-care (01) ==
PROVIDERS: Emergency Provider Emergency Medicine; Family Provider Internal Medicine; PCP Internal Medicine
DX: R45.851 Suicidal ideations (principal); F32.9 Major depressive disorder, single episode, unspecified; F10.129 Alcohol abuse with intoxication, unspecified; Y90.8 Blood alcohol level of 240 mg/100 ml or more; F41.9 Anxiety disorder, unspecified; F43.10 Post-traumatic stress disorder, unspecified; F17.200 Nicotine dependence, unspecified, uncomplicated; I25.10 Atherosclerotic heart disease of native coronary artery without angina pectoris; I10 Essential (primary) hypertension; E78.00 Pure hypercholesterolemia, unspecified; K21.9 Gastro-esophageal reflux disease without esophagitis; Z79.02 Long term (current) use of antithrombotics/antiplatelets; Z79.82 Long term (current) use of aspirin; Z79.891 Long term (current) use of opiate analgesic; Z79.899 Other long term (current) drug therapy
CPT/HCPCS: 70450; 71046; 80048; 80076; 80307; 80320; 81001; 83690; 83735; 84443; 85025; 93005; 99285; G0480

== ENCOUNTER 2018-07-16 10:40 | Emergency (ER) | payer MEDICAID, SELFPAY ==
[2018-07-16 10:41] VITALS: BP 157/75; PULSE 86; RESP 13; TEMP 36.9; O2SAT 96; BMI 32.1
[2018-07-16 10:46] VITALS: BP 157/68; PULSE 83; RESP 18; O2SAT 96
--- NOTE | 2018-07-16 11:03 | ED.VISSUMM ---
- ER Visit Summary Date of Service: 07/16/18 Chief Complaint: Blood in stool History of Present Illness: The patient is a 63 F who presents to the emergency department today with 1 month of blood in her stool. She states that occasionally she has to strain. She denies any rectal pain. She states that sometimes she will have blood just on the toilet paper sometimes she will have blood in the water. She notes that today her stool was green. She states that she has an irritable bowel-like syndrome with her agoraphobia. She states she had a colonoscopy 3-4 years ago that per her was negative. She does not remember who did it. She is on Plavix and aspirin. She also states that she frequently falls. This is been going on greater than 1 year. She states that she believes she mentioned that to her doctor. Review of her chart shows that she was actually hospitalized in August 2017 for this. She had neurology consultation as well as MRIs of the brain neck and lumbar spine. She also had physical therapy evaluation. She utilizes a cane, walker, or wheelchair she tells me however that is not which she is most concerned about. She states she is more concerned about her blood in the stool. She states that she feels dizzy and weak. However that is not new over the past month. No syncope. Physical Examination: Afebrile vital signs stable Gen: Well-nourished well-developed obese Head: Normocephalic atraumatic Eyes: Perrl EOMI ENT: TMs clear no rhinorrhea moist mucous membranes Neck: Supple no lymphadenopathy no JVD nontender CVS: Regular rate rhythm no murmurs normal S1-S2 Respiratory: No distress clear to auscultation bilaterally chest nontender Abdomen: Soft nontender nondistended normal bowel sounds no masses Back: Nontender Extremity: Nontender no edema Skin: Normal color no rash Neuro: alert orientated ?3 CN II-XII intact normal strength sensation normal patellar deep tendon reflex Psych: Normal affect normal mood Test Results: Hemoglobin 13.5. Normal platelet count. Glucose 161 BUN of 19 creatinine 1.42. Emergency Department Course and Treatment: This appears to be a stable lower GI bleed. Given that she strains is most likely hemorrhoidal in nature. Patient will be referred to primary care and was advised she may need to have a repeat colonoscopy. She is to avoid straining. I do not believe patient requires admission. I do not believe that the falls are outside sales representative acute emergency Impression: 1. Stable lower GI bleed This note was generated with [employer] dictation software. It may contain incorrect words, spelling, and punctuation that were not noted in review of the chart prior to signing ED Disposition - Plan for ED Patient: Disposition: Home or Assisted Living Instructions: ED Hematochezia Stable Referrals: Crystal Earl MD [Primary Care Provider] - (call to arrange follow up)
[2018-07-16 11:07] LABS: Absolute Lymphocyte Count 1.45 X10^3/ul (0.83-4.51); Absolute Neutrophil Count 4.8 X10^3/uL (2.0-7.7); Basophil# 0.02 X10^3/uL; Basophil% 0.3 % (0-1); Eosinophil# 0.07 X10^3/uL; Hematocrit 43.1 % (37-47); Hemoglobin 13.5 g/dl (12.0-15.0); Lymphocyte # 1.45 X10^3/ul (4.0); Lymphocyte % 21.3 % (19-41); Mean Corp Hgb Conc 31.3 g/gl (32-36); Mean Corpuscular Hgb 29.5 pg (27.0-32.0); Mean Corpuscular Volume 94.3 fL (81-99); Mean Platelet Vol. 9.9 fl (6.2-12.0); Monocyte# 0.47 X10^3/uL; Monocyte% 6.9 % (0-10); Neutrophil % 70.4 % (47-70); POSITIVE COUNT NO; POSITIVE DIFFERENTIAL NO; POSITIVE MORPHOLOGY NO; Platelet Count 290 K/mm3 (150-450); RBC Distribution Width CV 14.2 % (11.6-14.6); RBC Distribution Width SD 47.2 fl (35.1-43.9); Red Blood Count 4.57 M/mm3 (4.2-5.4); White Blood Count 6.8 K/mm3 (4.4-11.0)
[2018-07-16 11:21] LABS: Anion Gap 4 (5-15); BUN 19 mg/dL (7-18); BUN/Creat Ratio 13.4 RATIO (10-20); Calcium,Total 8.2 mg/dL (8.5-10.1); Chloride 101 mmol/L (98-107); Creatinine, Serum 1.42 mg/dL (0.55-1.02); EST Glomerular Filtration Rate 40 mL/min (>60); Est Glom Filt Rate - Afr Amer 48 mL/min (>60); Estimated Creatinine Clearance 41.28 ml/min; Glucose 161 mg/dL (74-106); Potassium 4.1 mmol/L (3.5-5.1); Sodium Level 135 mmol/L (136-145)
[2018-07-16 11:31] VITALS: BP 155/79; PULSE 87; RESP 18; O2SAT 93
[2018-07-16 11:57] VITALS: BP 155/79; PULSE 84; RESP 16; O2SAT 95
== END 2018-07-16 12:03 | disposition home or self-care (01) ==
PROVIDERS: Emergency Provider Emergency Medicine; Family Provider Internal Medicine; PCP Internal Medicine
DX: K92.1 Melena (principal); Z79.02 Long term (current) use of antithrombotics/antiplatelets; Z79.82 Long term (current) use of aspirin; Z79.891 Long term (current) use of opiate analgesic; Z79.899 Other long term (current) drug therapy
CPT/HCPCS: 80048; 85025; 99284; A4216

== ENCOUNTER 2018-07-25 09:39 | Emergency (ER) | payer MEDICAID, SELFPAY ==
[2018-07-25 09:40] VITALS: BP 185/90; PULSE 116; RESP 15; TEMP 36.6; O2SAT 92; BMI 32.5
--- NOTE | 2018-07-25 09:49 | CT_ITS ---
STUDY: CT ABDOMEN AND PELVIS WITHOUT CONTRAST REASON FOR EXAM: Female, 63 years old. Lower abdominal pain. Bloody stool. RADIATION DOSAGE (If Supplied By Facility): CTDIvol = ( 19.98 ) mGy, DLP = ( 1124.91 ) mGycm TECHNIQUE: Transaxial images were obtained from the dome of the diaphragm to the symphysis pubis without oral contrast, and without intravenous contrast. Sagittal and coronal images were reconstructed. Individualized dose optimization techniques were used for this CT. COMPARISON: Comparison is made with prior study dated September 04, 2013. FINDINGS: Minimal degree of increased markings at the lung bases suggestive of atelectasis. The visualized portions of the heart are within normal limits. There is decreased attenuation of the liver consistent with steatosis. Normal gallbladder and extrahepatic biliary system. Normal spleen. Normal pancreas. Normal bilateral adrenal glands. Normal right kidney. Normal left kidney. There is a small hiatal hernia. Normal small intestine. Normal colon. The appendix is visualized and appears normal. There is scattered atherosclerotic calcification of the abdominal aorta, without a demonstrated aneurysm. Normal inferior vena cava. Normal retroperitoneum. Normal urinary bladder. There is a small umbilical hernia containing fat. There are degenerative changes of the visualized lumbar spine. CT/Abdomen/Pelvis W IV Cont ONLY IMPRESSION: Fatty infiltration of the liver. Electronically Signed: Doug Brown, at 11:26 EDT , Service support ,
--- NOTE | 2018-07-25 09:52 | ED.VISSUMM ---
- ER Visit Summary Date of Service: 07/25/18 Chief Complaint: Blood per rectum History of Present Illness: The patient is a 63 F presents with blood from her rectum. The patient states she is been dealing with this for over a month. She states that normally, she will get constipated because she is on multiple chronic pain medications. She states she will have some trace blood she moves her bowels. She was actually seen here about 10 days ago for the same complaint. Her labs at that time are unremarkable. She states the blood is been getting more frequent. Aspirin and Plavix for history of prior IN.. She does have history of prior alcohol abuse. Over the past 2 days, she is developed some crampy abdominal pain in her bilateral lower quadrants. She is also felt mildly lightheaded. Physical Examination: Vital signs reviewed General: Well-nourished, well-developed Head: Normocephalic, atraumatic Eyes: Pupils equal and reactive, extraocular muscles intact Neck, supple, no lymphadenopathy Heart: Regular rate and rhythm Respiratory: No distress, clear bilaterally Abdomen: Soft, nontender, nondistended, no peritoneal signs Back: Nontender Extremities: Nontender, no edema, no cords Skin: Normal color no rash Neuro: Alert and oriented, no focal or lateralizing deficits Test Results: [] Emergency Department Course and Treatment: Rectal exam was done with female nurse track moving machine operator. There was no gross blood visible. It was guaiac positive. IV was established. Screening labs were obtained. The patient's hemoglobin is normal. It is unchanged from 2 weeks ago. I did obtain a CT to rule out any dangerous intra-abdominal process given her cramping. This is also unremarkable. This patient has had stable rectal bleeding for over a month with no significant change in hemoglobin I do feel that she is safe for outpatient workup. I did discuss the patient with Dr. Wynn, who she is seen in the past. He is comfortable with plan for arranging outpatient colonoscopy. The patient was counseled on concerning symptoms and will be discharged home. Treatment Plan: [] Disposition: Discharge Impression: 1. Stable rectal bleeding This note was generated with [employer] software. It may contain incorrect words, spelling, and punctuation that were not noted in review of the chart prior to signing ED Disposition - Plan for ED Patient: Instructions: ED Hematochezia Stable Referrals: Gary Garcia MD [STAFF PHYSICIAN] - 2 Days
[2018-07-25 10:19] LABS: Absolute Lymphocyte Count 1.18 X10^3/ul (0.83-4.51); Absolute Neutrophil Count 4.4 X10^3/uL (2.0-7.7); Basophil# 0.02 X10^3/uL; Basophil% 0.3 % (0-1); Eosinophil# 0.08 X10^3/uL; Eosinophils% 1.3 % (0-5); Hemoglobin 13.1 g/dl (12.0-15.0); Lymphocyte # 1.18 X10^3/ul (4.0); Lymphocyte % 19.3 % (19-41); Mean Corp Hgb Conc 31.2 g/gl (32-36); Mean Corpuscular Volume 93.1 fL (81-99); Mean Platelet Vol. 10.1 fl (6.2-12.0); Monocyte# 0.41 X10^3/uL; Monocyte% 6.7 % (0-10); Neutrophil # 4.39 X10^3/uL (2.7-7.7); Neutrophil % 72.1 % (47-70); Platelet Count 287 K/mm3 (150-450); RBC Distribution Width CV 14.5 % (11.6-14.6); RBC Distribution Width SD 47.2 fl (35.1-43.9); Red Blood Count 4.51 M/mm3 (4.2-5.4); White Blood Count 6.1 K/mm3 (4.4-11.0)
[2018-07-25] MEDS: Ondansetron 4 MG/2 ML Vial IV (10:19)
[2018-07-25] MEDS: 0.9% Normal Saline 1,000 ML 1000 ML IV (10:19)
[2018-07-25 10:23] LABS: POSITIVE COUNT NO; POSITIVE DIFFERENTIAL NO; POSITIVE MORPHOLOGY NO
[2018-07-25 10:38] LABS: AST(SGOT) 22 U/L (15-37); Alanine Aminotransfer ALT/SGPT 37 U/L (13-56); Albumin, Serum 3.9 g/dL (3.2-5.0); Alkaline Phosphatase 145 U/L (45-117); Anion Gap 5 (5-15); BUN 18 mg/dL (7-18); BUN/Creat Ratio 13.2 RATIO (10-20); Calcium,Total 8.7 mg/dL (8.5-10.1); Chloride 102 mmol/L (98-107); Creatinine, Serum 1.36 mg/dL (0.55-1.02); EST Glomerular Filtration Rate 42 mL/min (>60); Est Glom Filt Rate - Afr Amer 50 mL/min (>60); Globulin 3.9 g/dL (2.2-4.2); Glucose 176 mg/dL (74-106); Potassium 4.2 mmol/L (3.5-5.1); Protein, Total 7.8 g/dL (6.4-8.2); Sodium Level 137 mmol/L (136-145)
[2018-07-25 11:25] LABS: International Normalized Ratio 1.2; Partial Thromboplast Time 27.5 Seconds (24.1-36.2); Prothrombin Time (Protime)PT. 15.2 SECONDS (11.7-14.9)
[2018-07-25 11:55] VITALS: BP 180/80; PULSE 98; RESP 18; O2SAT 96
== END 2018-07-25 11:57 | disposition home or self-care (01) ==
PROVIDERS: Emergency Provider Emergency Medicine; Family Provider Internal Medicine; PCP Internal Medicine
DX: K62.5 Hemorrhage of anus and rectum (principal); I25.2 Old myocardial infarction; Z79.02 Long term (current) use of antithrombotics/antiplatelets; Z79.82 Long term (current) use of aspirin
CPT/HCPCS: 74177; 80053; 82274; 85025; 85610; 85730; 86850; 86900; 96374; 99283; J7030; Q9967; A4216; J2405

== ENCOUNTER 2018-07-27 09:29 | Inpatient (IN) | payer MEDICAID, SELFPAY ==
[2018-07-27] VITALS (25 sets, daily range): BP systolic 90–170; BP diastolic 51–77; PULSE 72–89; RESP 14–31; TEMP 36.1–37.2; O2SAT 88–99; BMI 34.0; BMI 33.5
--- NOTE | 2018-07-27 09:38 | ED.RN ---
PT C/O LUQ ABD PAIN INTERMITTENTLY. PT HAS APPT TO SEE DR GOTTI FOR GI BLEED.
--- NOTE | 2018-07-27 09:54 | CT_ITS ---
STUDY: CT BRAIN WITHOUT CONTRAST REASON FOR EXAM: Female, 63 years old. Left-sided weakness. Falls. RADIATION DOSAGE (If Supplied By Facility): CTDIvol = ( 60.81 ) mGy, DLP = ( 1067.08 ) mGycm TECHNIQUE: Transaxial CT imaging of the brain was performed without administration of intravenous contrast material. Individualized dose optimization techniques were used for this CT. COMPARISON: Comparison is made with prior examination dated March 08, 2018. FINDINGS: Normal soft tissue structures. Normal calvarium. There is mild cerebral atrophy with widening of the extra-axial spaces and ventricular dilatation. There are areas of decreased attenuation within the white matter tracts of the supratentorial brain, consistent with microvascular disease changes. Normal basal ganglia and thalami. Normal brainstem. Normal cerebellum. There is no intracranial hemorrhage. There are no findings of an acute ischemic infarction. Atherosclerotic calcification of the cavernous portions of the internal carotid arteries bilaterally. Normal visualized paranasal sinuses. CT/Brain/Head without Contrast IMPRESSION: Chronic involutional changes of the brain. Electronically Signed: Doug Brown, at 11:41 EDT , Service support ,
--- NOTE | 2018-07-27 09:55 | EKG12_ITS ---
Test Reason : WEAKNESS Blood Pressure : / mmHG Vent. Rate : 078 BPM Atrial Rate : 078 BPM P-R Int : 230 ms QRS Dur : 136 ms QT Int : 446 ms P-R-T Axes : 075 -45 046 degrees QTc Int : 508 ms Sinus rhythm with 1st degree A-V block Left axis deviation Non-specific intra-ventricular conduction block Abnormal ECG Confirmed by LUIS ARREOLA, RONI ([id number]), clinical editor MARYCRUZ WILEY ([id number]) on 07/31/2018 2:11:11 PM Referred By: Roldan Ayala Confirmed By:RONI SMITH MD
--- NOTE | 2018-07-27 10:29 | RAD_ITS ---
STUDY: X-RAY CHEST REASON FOR EXAM: Female, 63 years old. Weakness. Assessment for line placement. TECHNIQUE: Single AP portable view of the chest. COMPARISON: Comparison is made with prior study dated March 08, 2018. FINDINGS: A right sided subclavian EKG electrodes are seen. Catheter has been placed. The tip of the catheter is in the right internal jugular vein. The lungs are clear and expanded. There is no demonstrated pleural abnormality. There is mild cardiac enlargement. Normal mediastinum and josselin. Normal visualized pulmonary arteries. Normal visualized aortic arch and descending thoracic aorta. There are diffuse degenerative changes of the visualized thoracic spine. Normal visualized ribs, clavicles, and shoulders. There is no demonstrated abnormality of the visualized soft tissue structures of the upper abdomen. RAD/Chest 1 View (Portable) IMPRESSION: The tip of the right subclavian catheter is in the right internal jugular vein. Cardiomegaly. The lungs are clear. Electronically Signed: Doug Brown, at 12:27 EDT , Service support ,
[2018-07-27] MEDS: 0.9% Normal Saline 1,000 ML 150 ML IV ×3 (10:45→21:29)
[2018-07-27 11:02] LABS: Absolute Lymphocyte Count 0.56 X10^3/ul (0.83-4.51); Absolute Neutrophil Count 12.6 X10^3/uL (2.0-7.7); Basophil# 0.01 X10^3/uL; Basophil% 0.1 % (0-1); Differential Indicated SCAN CRITERIA MET; Hematocrit 38.5 % (37-47); Lymphocyte # 0.56 X10^3/ul (4.0); Lymphocyte % 3.9 % (19-41); Mean Corp Hgb Conc 31.2 g/gl (32-36); Mean Corpuscular Hgb 28.8 pg (27.0-32.0); Mean Corpuscular Volume 92.5 fL (81-99); Mean Platelet Vol. 10.1 fl (6.2-12.0); Monocyte# 1.28 X10^3/uL; Monocyte% 8.8 % (0-10); Neutrophil # 12.62 X10^3/uL (2.7-7.7); Neutrophil % 86.8 % (47-70); POSITIVE COUNT NO; POSITIVE DIFFERENTIAL YES; POSITIVE MORPHOLOGY NO; Platelet Count 223 K/mm3 (150-450); RBC Distribution Width CV 14.6 % (11.6-14.6); RBC Distribution Width SD 48.7 fl (35.1-43.9); Red Blood Count 4.16 M/mm3 (4.2-5.4); White Blood Count 14.5 K/mm3 (4.4-11.0)
[2018-07-27 11:13] LABS: International Normalized Ratio 2.6; Prothrombin Time (Protime)PT. 27.7 SECONDS (11.7-14.9)
[2018-07-27 11:17] LABS: Lactic Acid 4.5 mmol/L (0.4-2.0)
[2018-07-27 11:20] LABS: Bedside Glucose 191 mg/dL (70-110)
[2018-07-27] MEDS: 0.9% Normal Saline 1,000 ML 1000 ML IV ×2 (11:23→11:42)
[2018-07-27 11:31] LABS: Allen Test POS; Base Excess -6 mmol/L (-2 to +2); Bicarbonate 20.6 mmol/L (22-26); Blood Gas Specimen Type ART; O2 Delivery Device Nasal Can; PO2 79 mmHG (75-100); SITE R Radial; SO2 94 % (95-99); Time Given 1126; Total Carbon Dioxide 22 mmol/L; pCO2 42.5 mmHg (35-45); pH 7.29 (7.35-7.45)
[2018-07-27 11:34] LABS: ALB/GLOB Ratio 0.9 RATIO (0.9-2.4); AST(SGOT) 10059 U/L (15-37); Alanine Aminotransfer ALT/SGPT 4541 U/L (13-56); Albumin, Serum 3.2 g/dL (3.2-5.0); Alkaline Phosphatase 150 U/L (45-117); Anion Gap 11 (5-15); BUN 33 mg/dL (7-18); BUN/Creat Ratio 11.2 RATIO (10-20); Calcium,Total 7.6 mg/dL (8.5-10.1); Chloride 99 mmol/L (98-107); Creatinine, Serum 2.94 mg/dL (0.55-1.02); EST Glomerular Filtration Rate 17 mL/min (>60); Est Glom Filt Rate - Afr Amer 21 mL/min (>60); Estimated Creatinine Clearance 19.94 ml/min; Globulin 3.4 g/dL (2.2-4.2); Glucose 166 mg/dL (74-106); Lipase 81 U/L (73-393); Potassium 6.3 mmol/L (3.5-5.1); Protein, Total 6.6 g/dL (6.4-8.2); Sodium Level 133 mmol/L (136-145)
--- NOTE | 2018-07-27 11:34 | ED.RN ---
lab resulted lactic 4.5, potassium 6.3, physician aware
--- NOTE | 2018-07-27 12:05 | ED.RN ---
order for insulin has been in the computer for 27min, called pharmacy requesting insulin.
[2018-07-27 12:06] LABS: Mucous, Urine 0 SEEN /hpf (<or=2+)
[2018-07-27 12:11] LABS: Color, Urine Yellow (Yellow); Glucose, Dipstick Normal (Normal); Ketone-Dipstick 5 mg/dl (Negative); Leukocyte Esterase-Dipstick 100 /ul (Negative); Nitrite-Dipstick Negative (Negative); Occult Blood-Urine 250 /ul (Negative); Protein-Dipstick 100 mg/dl (Negative); Specific Gravity, Urine 1.025 (1.002-1.030); Urine Clarity Sl. Cloudy (Clear); Urine Urobilinogen 4 mg/dl (Normal)
[2018-07-27 12:16] LABS: Urine Bilirubin Dipstick 3 mg/dL (Negative)
[2018-07-27 12:27] LABS: Amorphous Sediment 2+; Bacteria 1+ /hpf (None Seen); Red Blood Cells-Urine 25-50 SEEN /hpf (0-5); Squamous Epithelial Cells - UA 0-5 SEEN /hpf (5-10); White Blood Cells 10-25 SEEN /hpf (0-5)
--- NOTE | 2018-07-27 12:36 | ED.VIS.GEN ---
History of Present Illness Chief Complaint: Weakness Detail of Chief Complaint: Schedule colonoscopy Dr. Wynn, not normal self Informant: Family Onset: - - Uncertain Context: Gradual Onset Timing: Continuous Current Severity: Severe Maximum Severity: Severe Worsened by: Uncertain Relieved by: Unknown Associated Symptoms: Unknown Narrative: Patient is a 63-year-old woman who presents because of generalized weakness, blood per rectum, abdominal discomfort, not her normal self. Per records she has history of alcohol use. She is on no anticoagulant. History is limited. She lives with her spouse. Prior similar symptoms: No Recent Illness/Hospitalization: No - Past Medical History (1) Frequent falls Status: Acute (2) Unsteady gait Status: Acute (3) Anxiety disorder Status: Chronic (4) Depressive disorder Status: Chronic (5) Esophageal reflux Status: Chronic (6) HTN (hypertension) Status: Chronic (7) Irritable bowel syndrome (IBS) Status: Chronic (8) Tobacco use disorder Status: Chronic (9) NSTEMI (non-ST elevated myocardial infarction) Status: Resolved Past Medical History - Allergies and Home Meds Allergies/Adverse Reactions: Allergies duloxetine HCl [From Cymbalta] Adverse Reaction (Verified 07/25/18 09:39) Other morphine Adverse Reaction (Verified 07/25/18 09:39) Itching pramipexole di-HCl [From Mirapex] Adverse Reaction (Verified 07/25/18 09:39) Other Sulfa (Sulfonamide Antibiotics) Adverse Reaction (Verified 07/25/18 09:39) Unknown tramadol HCl [From Ultram] Adverse Reaction (Verified 07/25/18 09:39) Itching varenicline [From Chantix] Adverse Reaction (Verified 07/25/18 09:39) Unknown Primary Care Physician: Crystal Earl MD [Primary Care Provider] - Prior records reviewed: Yes Surgical History: noncontributory, - - Uterine suspension, coronary artery stent placement Lives: Spouse/ Significant Other Smoking Status: Current every day smoker Alcohol: Occasional - Uncertain the amount - Family History Maternal Family History: Reports: No pertinent history - Patient was adopted Paternal Family History: Reports: No pertinent history - Was adopted Review of Systems ROS: Unable to Obtain - Limited history. Patient not oriented General: Reports: Malaise Respiratory: Reports: Dyspnea Gastrointestinal: Reports: Abdominal pain, Nausea, Hematochezia Neurological: Reports: Weakness Hematologic: Reports: Easy bruising Physical Exam Vital Signs/Narrative: Vital Signs Temp Pulse Resp BP Pulse Ox 07/27/18 12:00 98.2 F 77 31 H 170/77 H 99 07/27/18 11:29 84 16 111/72 98 07/27/18 11:19 98.4 F 72 22 H 90/74 96 07/27/18 09:31 98.8 F 81 16 143/56 H 96 Inital Vital Signs reviewed: Yes General: Well nourished, Well developed, Obese, Unkempt Head: Normocephalic, Atraumatic. Negative for: Trauma Eyes: Perrl, EOMI, Scleral icterus. Negative for: Pale conjunctiva ENT: No rhinorrhea - [place], TM's clear, Dry mucous membranes. Negative for: Nasal congestion Neck: Supple, Nontender, No lymphadenopathy, No JVD Cardiovascular: Regular rate, Regular rhythm, No murmurs, Normal S1, Normal S2 Respiratory: CTA bilaterally, Chest nontender Abdomen: No masses, Tender, Hypoactive bowel sounds. Negative for: Hepatomegaly, Splenomegaly, Mass, Pulsatile mass Rectal: - - Brown bloody mucousy stool Back: Nontender Extremities: Nontender, Tenderness, - - Cyanosis of all toes. There is biphasic PT flow bilaterally no palpable pulses Skin: Cyanosis, Jaundice Neurological: Cranial nerves II-XII grossly intact, Normal Strength, Normal Sensation, Confused, Disoriented. Negative for: Alert, Oriented x3, Normal Gait Psychological: - - Flat affect thought content not normal Diagnostic/Tx/Re-eval Chest X-Ray - ED: 1 View, Read by ED Physician, Cardiomegaly, - - Right subclavian line is superior into the neck. Impressions Brain CT 07/27/18 09:54 IMPRESSION: Chronic involutional changes of the brain. Electronically Signed: Doug Brown, at 11:41 EDT , Service support , Chest X-Ray 07/27/18 10:29 IMPRESSION: The tip of the right subclavian catheter is in the right internal jugular vein. Cardiomegaly. The lungs are clear. Electronically Signed: Doug Brown, at 12:27 EDT , Service support , 07/27/18 09:54 Brain/Head without Contrast [CT] Stat 07/27/18 10:29 Chest 1 View (Portable) [RAD] Stat Laboratory Results 07/27/18 07/27/18 07/27/18 10:30 10:30 10:30 WBC 14.5 H RBC 4.16 L Hgb 12.0 Hct 38.5 MCV 92.5 MCH 28.8 MCHC 31.2 L RDW 14.6 RDW Differential 48.7 H Plt Count 223 MPV 10.1 Immature Gran % (Auto) 0.400 Neut % (Auto) 86.8 H Lymph % (Auto) 3.9 L [place] % (Auto) 8.8 Eos % (Auto) 0.0 Baso % (Auto) 0.1 Absolute Neuts (auto) 12.6 H Absolute Lymphs (auto) 0.56 L Total Counted Not Reportable Differential Comment COMMENT PT 27.7 H INR 2.6 Specimen Type Sample Site pH Bicarbonate Actual POC Total CO2 Base Excess O2 Saturation ABG pCO2 ABG pO2 Shahbaz Test O2 Delivery Device Liter Flow Blood Gas Notified Whom Blood Gas Notified Time Sodium 133 L Potassium 6.3 H* Chloride 99 Carbon Dioxide 23.0 Anion Gap 11 BUN 33 H Creatinine 2.94 H Estim Creat Clear Calc 19.94 Est GFR (MDRD) Af Amer 21 L Est GFR (MDRD) Non-Af 17 L BUN/Creatinine Ratio 11.2 Glucose 166 H Lactic Acid Calcium 7.6 L Total Bilirubin 2.30 H AST 65988 H ALT 4541 H Alkaline Phosphatase 150 H Troponin I 0.504 H Total Protein 6.6 Albumin 3.2 Globulin 3.4 Albumin/Globulin Ratio 0.9 Lipase 81 Urine Color Urine Clarity Urine pH Ur Specific [place] Urine Protein Urine Glucose (UA) Urine Ketones Urine Occult Blood Urine Nitrite Urine Bilirubin Urine Urobilinogen Ur Leukocyte Esterase Urine RBC Urine WBC Ur Squamous Epith Cells Amorphous Sediment Urine Bacteria Urine Mucus Ethyl Alcohol Acetone Level POC Glucose 07/27/18 07/27/18 07/27/18 10:30 10:30 10:30 WBC RBC Hgb Hct MCV MCH MCHC RDW RDW Differential Plt Count MPV Immature Gran % (Auto) Neut % (Auto) Lymph % (Auto) [place] % (Auto) Eos % (Auto) Baso % (Auto) Absolute Neuts (auto) Absolute Lymphs (auto) Total Counted Differential Comment PT INR Specimen Type Sample Site pH Bicarbonate Actual POC Total CO2 Base Excess O2 Saturation ABG pCO2 ABG pO2 Shahbaz Test O2 Delivery Device Liter Flow Blood Gas Notified Whom Blood Gas Notified Time Sodium Potassium Chloride Carbon Dioxide Anion Gap BUN Creatinine Estim Creat Clear Calc Est GFR (MDRD) Af Amer Est GFR (MDRD) Non-Af BUN/Creatinine Ratio Glucose Lactic Acid 4.5 H* Calcium Total Bilirubin AST ALT Alkaline Phosphatase Troponin I Total Protein Albumin Globulin Albumin/Globulin Ratio Lipase Urine Color Urine Clarity Urine pH Ur Specific [place] Urine Protein Urine Glucose (UA) Urine Ketones Urine Occult Blood Urine Nitrite Urine Bilirubin Urine Urobilinogen Ur Leukocyte Esterase Urine RBC Urine WBC Ur Squamous Epith Cells Amorphous Sediment Urine Bacteria Urine Mucus Ethyl Alcohol 11.0 Acetone Level NEGATIVE POC Glucose 07/27/18 07/27/18 07/27/18 10:51 11:27 12:04 WBC RBC Hgb Hct MCV MCH MCHC RDW RDW Differential Plt Count MPV Immature Gran % (Auto) Neut % (Auto) Lymph % (Auto) [place] % (Auto) Eos % (Auto) Baso % (Auto) Absolute Neuts (auto) Absolute Lymphs (auto) Total Counted Differential Comment PT INR Specimen Type ART Sample Site R Radial pH 7.29 L Bicarbonate Actual 20.6 L POC Total CO2 22 Base Excess -6 L O2 Saturation 94 L ABG pCO2 42.5 ABG pO2 79 Shahbaz Test POS O2 Delivery Device Nasal Can Liter Flow 4.0 Blood Gas Notified Whom ED MD Blood Gas Notified Time 1126 Sodium Potassium Chloride Carbon Dioxide Anion Gap BUN Creatinine Estim Creat Clear Calc Est GFR (MDRD) Af Amer Est GFR (MDRD) Non-Af BUN/Creatinine Ratio Glucose Lactic Acid Calcium Total Bilirubin AST ALT Alkaline Phosphatase Troponin I Total Protein Albumin Globulin Albumin/Globulin Ratio Lipase Urine Color Yellow Urine Clarity Sl. Cloudy Urine pH 5.0 Ur Specific [place] 1.025 Urine Protein 100 H Urine Glucose (UA) Normal Urine Ketones 5 H Urine Occult Blood 250 H Urine Nitrite Negative Urine Bilirubin 3 H Urine Urobilinogen 4 H Ur Leukocyte Esterase 100 H Urine RBC 25-50 SEEN Urine WBC 10-25 SEEN Ur Squamous Epith Cells 0-5 SEEN Amorphous Sediment 2+ Urine Bacteria 1+ Urine Mucus 0 SEEN Ethyl Alcohol Acetone Level POC Glucose 191 H - Rhythm Strip Rhythm Strip: Sinus Rhythm Rate: 89 Ectopy: None - EKG Initial EKG Interpretation: Sinus Rhythm - Ventricular rate 73. [place] interval is prolonged at 230 ms. QRS duration is prolonged at 136 ms. [place] to the left. There is evidence of decreased anterior force no ossific intraventricular conduction delay. There is a first-degree AV block. - Medical Decision Making With jaundice abdominal pain history of alcoholism need to rule out alcoholic hepatitis, liver failure, biliary disease, UTI, does have evidence of GI bleed. Need to determine source. Will obtain blood work to assess metabolic and infectious causes of altered mental status. Dr. Gary Garcia was made aware patient since she is scheduled to see her tomorrow. He was made aware of her history, physical and results. Case was discussed with Dr. Corey Hollis. He requested acetaminophen level. Ammonia level was added after discussion. He would obtain hepatic hepatitis panel. Will treat with Zosyn for possible UTI. She does have a coagulopathy. She was typed and screened. Because of frequent falls CT of the head was obtained with no evidence of bleed. Chest x-ray was obtained because of dyspnea and line placement. Is noted in the neck. It is functional, however. When I was aware of the elevated lactate she did receive a 30 cc/kg bolus. Since source was not known antibiotic were not started. Once urine was available and revealed pyuria and bacteria antibiotics were administered for GI and coverage. - Critical Care Time Critical care time (excluding procedures): 30-74 minutes, Discussing w/Patient &/or Family/Emergency Services Director, Discussing w/Consultants, Arranging Admission or Transfer, Performing Direct Patient Care at Bedside Procedures Procedure(s): Patient is disoriented and unable to give consent for right subclavian line which was needed since nursing staff was unable to obtain peripheral line and unable to obtain blood. Using universal procedure protocol for insertion a right subclavian line was placed. The area was prepped draped sterile manner. The area was anesthetized with 1% lidocaine. The right subclavian vessel was cannula excessively on first attempt on the way in. Using Seldinger technique triple-lumen was placed. Blood was aspirated from all 3 ports. Chest x-ray reveals no pneumothorax. The line is superior into the neck. ED Disposition - Plan for ED Patient: Disposition: Acute Care Hospital [facility] Diagnosis: Shock, unspecified, GI bleed, Acute liver failure, Coagulopathy, UTI (urinary tract infection), Hepatic encephalopathy, Esophageal reflux, HTN (hypertension), Tobacco use disorder Referrals: Crystal Earl MD [Primary Care Provider] -
--- NOTE | 2018-07-27 12:40 | ED.DCSUM_ITS ---
History of Present Illness Chief Complaint: Weakness Detail of Chief Complaint: Schedule colonoscopy Dr. Wynn, not normal self Informant: Family Onset: - - Uncertain Context: Gradual Onset Timing: Continuous Current Severity: Severe Maximum Severity: Severe Worsened by: Uncertain Relieved by: Unknown Associated Symptoms: Unknown Narrative: Patient is a 63-year-old woman who presents because of generalized weakness, blood per rectum, abdominal discomfort, not her normal self. Per records she has history of alcohol use. She is on no anticoagulant. History is limited. She lives with her spouse. Prior similar symptoms: No Recent Illness/Hospitalization: No - Past Medical History (1) Frequent falls Status: Acute (2) Unsteady gait Status: Acute (3) Anxiety disorder Status: Chronic (4) Depressive disorder Status: Chronic (5) Esophageal reflux Status: Chronic (6) HTN (hypertension) Status: Chronic (7) Irritable bowel syndrome (IBS) Status: Chronic (8) Tobacco use disorder Status: Chronic (9) NSTEMI (non-ST elevated myocardial infarction) Status: Resolved Past Medical History - Allergies and Home Meds Allergies/Adverse Reactions: Allergies duloxetine HCl [From Cymbalta] Adverse Reaction (Verified 07/25/18 09:39) Other morphine Adverse Reaction (Verified 07/25/18 09:39) Itching pramipexole di-HCl [From Mirapex] Adverse Reaction (Verified 07/25/18 09:39) Other Sulfa (Sulfonamide Antibiotics) Adverse Reaction (Verified 07/25/18 09:39) Unknown tramadol HCl [From Ultram] Adverse Reaction (Verified 07/25/18 09:39) Itching varenicline [From Chantix] Adverse Reaction (Verified 07/25/18 09:39) Unknown Primary Care Physician: Crystal Earl MD [Primary Care Provider] - Prior records reviewed: Yes Surgical History: noncontributory, - - Uterine suspension, coronary artery stent placement Lives: Spouse/ Significant Other Smoking Status: Current every day smoker Alcohol: Occasional - Uncertain the amount - Family History Maternal Family History: Reports: No pertinent history - Patient was adopted Paternal Family History: Reports: No pertinent history - Was adopted Review of Systems ROS: Unable to Obtain - Limited history. Patient not oriented General: Reports: Malaise Respiratory: Reports: Dyspnea Gastrointestinal: Reports: Abdominal pain, Nausea, Hematochezia Neurological: Reports: Weakness Hematologic: Reports: Easy bruising Physical Exam Vital Signs/Narrative: Vital Signs Temp Pulse Resp BP Pulse Ox 07/27/18 12:00 98.2 F 77 31 H 170/77 H 99 07/27/18 11:29 84 16 111/72 98 07/27/18 11:19 98.4 F 72 22 H 90/74 96 07/27/18 09:31 98.8 F 81 16 143/56 H 96 Inital Vital Signs reviewed: Yes General: Well nourished, Well developed, Obese, Unkempt Head: Normocephalic, Atraumatic. Negative for: Trauma Eyes: Perrl, EOMI, Scleral icterus. Negative for: Pale conjunctiva ENT: No rhinorrhea - [facility], TM's clear, Dry mucous membranes. Negative for: Nasal congestion Neck: Supple, Nontender, No lymphadenopathy, No JVD Cardiovascular: Regular rate, Regular rhythm, No murmurs, Normal S1, Normal S2 Respiratory: CTA bilaterally, Chest nontender Abdomen: No masses, Tender, Hypoactive bowel sounds. Negative for: Hepatomegaly, Splenomegaly, Mass, Pulsatile mass Rectal: - - Brown bloody mucousy stool Back: Nontender Extremities: Nontender, Tenderness, - - Cyanosis of all toes. There is biphasic PT flow bilaterally no palpable pulses Skin: Cyanosis, Jaundice Neurological: Cranial nerves II-XII grossly intact, Normal Strength, Normal Sensation, Confused, Disoriented. Negative for: Alert, Oriented x3, Normal Gait Psychological: - - Flat affect thought content not normal Diagnostic/Tx/Re-eval Chest X-Ray - ED: 1 View, Read by ED Physician, Cardiomegaly, - - Right subclavian line is superior into the neck. Impressions Brain CT 07/27/18 09:54 IMPRESSION: Chronic involutional changes of the brain. Electronically Signed: Doug Brown, at 11:41 EDT , Service support , Chest X-Ray 07/27/18 10:29 IMPRESSION: The tip of the right subclavian catheter is in the right internal jugular vein. Cardiomegaly. The lungs are clear. Electronically Signed: Doug Brown, at 12:27 EDT , Service support , 07/27/18 09:54 Brain/Head without Contrast [CT] Stat 07/27/18 10:29 Chest 1 View (Portable) [RAD] Stat Laboratory Results 07/27/18 07/27/18 07/27/18 10:30 10:30 10:30 WBC 14.5 H RBC 4.16 L Hgb 12.0 Hct 38.5 MCV 92.5 MCH 28.8 MCHC 31.2 L RDW 14.6 RDW Differential 48.7 H Plt Count 223 MPV 10.1 Immature Gran % (Auto) 0.400 Neut % (Auto) 86.8 H Lymph % (Auto) 3.9 L [place] % (Auto) 8.8 Eos % (Auto) 0.0 Baso % (Auto) 0.1 Absolute Neuts (auto) 12.6 H Absolute Lymphs (auto) 0.56 L Total Counted Not Reportable Differential Comment COMMENT PT 27.7 H INR 2.6 Specimen Type Sample Site pH Bicarbonate Actual POC Total CO2 Base Excess O2 Saturation ABG pCO2 ABG pO2 Shahbaz Test O2 Delivery Device Liter Flow Blood Gas Notified Whom Blood Gas Notified Time Sodium 133 L Potassium 6.3 H* Chloride 99 Carbon Dioxide 23.0 Anion Gap 11 BUN 33 H Creatinine 2.94 H Estim Creat Clear Calc 19.94 Est GFR (MDRD) Af Amer 21 L Est GFR (MDRD) Non-Af 17 L BUN/Creatinine Ratio 11.2 Glucose 166 H Lactic Acid Calcium 7.6 L Total Bilirubin 2.30 H AST 35382 H ALT 4541 H Alkaline Phosphatase 150 H Troponin I 0.504 H Total Protein 6.6 Albumin 3.2 Globulin 3.4 Albumin/Globulin Ratio 0.9 Lipase 81 Urine Color Urine Clarity Urine pH Ur Specific [place] Urine Protein Urine Glucose (UA) Urine Ketones Urine Occult Blood Urine Nitrite Urine Bilirubin Urine Urobilinogen Ur Leukocyte Esterase Urine RBC Urine WBC Ur Squamous Epith Cells Amorphous Sediment Urine Bacteria Urine Mucus Ethyl Alcohol Acetone Level POC Glucose 07/27/18 07/27/18 07/27/18 10:30 10:30 10:30 WBC RBC Hgb Hct MCV MCH MCHC RDW RDW Differential Plt Count MPV Immature Gran % (Auto) Neut % (Auto) Lymph % (Auto) [place] % (Auto) Eos % (Auto) Baso % (Auto) Absolute Neuts (auto) Absolute Lymphs (auto) Total Counted Differential Comment PT INR Specimen Type Sample Site pH Bicarbonate Actual POC Total CO2 Base Excess O2 Saturation ABG pCO2 ABG pO2 Shahbaz Test O2 Delivery Device Liter Flow Blood Gas Notified Whom Blood Gas Notified Time Sodium Potassium Chloride Carbon Dioxide Anion Gap BUN Creatinine Estim Creat Clear Calc Est GFR (MDRD) Af Amer Est GFR (MDRD) Non-Af BUN/Creatinine Ratio Glucose Lactic Acid 4.5 H* Calcium Total Bilirubin AST ALT Alkaline Phosphatase Troponin I Total Protein Albumin Globulin Albumin/Globulin Ratio Lipase Urine Color Urine Clarity Urine pH Ur Specific [place] Urine Protein Urine Glucose (UA) Urine Ketones Urine Occult Blood Urine Nitrite Urine Bilirubin Urine Urobilinogen Ur Leukocyte Esterase Urine RBC Urine WBC Ur Squamous Epith Cells Amorphous Sediment Urine Bacteria Urine Mucus Ethyl Alcohol 11.0 Acetone Level NEGATIVE POC Glucose 07/27/18 07/27/18 07/27/18 10:51 11:27 12:04 WBC RBC Hgb Hct MCV MCH MCHC RDW RDW Differential Plt Count MPV Immature Gran % (Auto) Neut % (Auto) Lymph % (Auto) [place] % (Auto) Eos % (Auto) Baso % (Auto) Absolute Neuts (auto) Absolute Lymphs (auto) Total Counted Differential Comment PT INR Specimen Type ART Sample Site R Radial pH 7.29 L Bicarbonate Actual 20.6 L POC Total CO2 22 Base Excess -6 L O2 Saturation 94 L ABG pCO2 42.5 ABG pO2 79 Shahbaz Test POS O2 Delivery Device Nasal Can Liter Flow 4.0 Blood Gas Notified Whom ED MD Blood Gas Notified Time 1126 Sodium Potassium Chloride Carbon Dioxide Anion Gap BUN Creatinine Estim Creat Clear Calc Est GFR (MDRD) Af Amer Est GFR (MDRD) Non-Af BUN/Creatinine Ratio Glucose Lactic Acid Calcium Total Bilirubin AST ALT Alkaline Phosphatase Troponin I Total Protein Albumin Globulin Albumin/Globulin Ratio Lipase Urine Color Yellow Urine Clarity Sl. Cloudy Urine pH 5.0 Ur Specific [place] 1.025 Urine Protein 100 H Urine Glucose (UA) Normal Urine Ketones 5 H Urine Occult Blood 250 H Urine Nitrite Negative Urine Bilirubin 3 H Urine Urobilinogen 4 H Ur Leukocyte Esterase 100 H Urine RBC 25-50 SEEN Urine WBC 10-25 SEEN Ur Squamous Epith Cells 0-5 SEEN Amorphous Sediment 2+ Urine Bacteria 1+ Urine Mucus 0 SEEN Ethyl Alcohol Acetone Level POC Glucose 191 H - Rhythm Strip Rhythm Strip: Sinus Rhythm Rate: 89 Ectopy: None - EKG Initial EKG Interpretation: Sinus Rhythm - Ventricular rate 73. [place] interval is prolonged at 230 ms. QRS duration is prolonged at 136 ms. [place] to the left. There is evidence of decreased anterior force no ossific intraventricular conduction delay. There is a first-degree AV block. - Medical Decision Making With jaundice abdominal pain history of alcoholism need to rule out alcoholic hepatitis, liver failure, biliary disease, UTI, does have evidence of GI bleed. Need to determine source. Will obtain blood work to assess metabolic and infectious causes of altered mental status. Dr. Gary Garcia was made aware patient since she is scheduled to see her tomorrow. He was made aware of her history, physical and results. Case was discussed with Dr. Corey Hollis. He requested acetaminophen level. Ammonia level was added after discussion. He would obtain hepatic hepatitis panel. Will treat with Zosyn for possible UTI. She does have a coagulopathy. She was typed and screened. Because of frequent falls CT of the head was obtained with no evidence of bleed. Chest x-ray was obtained because of dyspnea and line placement. Is noted in the neck. It is functional, however. When I was aware of the elevated lactate she did receive a 30 cc/kg bolus. Since source was not known antibiotic were not started. Once urine was available and revealed pyuria and bacteria antibiotics were administered for GI and coverage. - Critical Care Time Critical care time (excluding procedures): 30-74 minutes, Discussing w/Patient &/or Family/Telephone Diaphragm Assembler, Discussing w/Consultants, Arranging Admission or Transfer, Performing Direct Patient Care at Bedside Procedures Procedure(s): Patient is disoriented and unable to give consent for right subclavian line which was needed since nursing staff was unable to obtain peripheral line and unable to obtain blood. Using universal procedure protocol for insertion a right subclavian line was placed. The area was prepped draped sterile manner. The area was anesthetized with 1% lidocaine. The right subclavian vessel was cannula excessively on first attempt on the way in. Using Seldinger technique triple-lumen was placed. Blood was aspirated from all 3 ports. Chest x-ray reveals no pneumothorax. The line is superior into the neck. ED Disposition - Plan for ED Patient: Disposition: Acute Care Hospital [facility] Diagnosis: Shock, unspecified, GI bleed, Acute liver failure, Coagulopathy, UTI (urinary tract infection), Hepatic encephalopathy, Esophageal reflux, HTN (hypertension), Tobacco use disorder Referrals: Crystal Earl MD [Primary Care Provider] -
[2018-07-27] MEDS: Dextrose 50%-Water 25 GM/50 ML DISP.SYRIN IV (12:45)
--- NOTE | 2018-07-27 13:45 | PCM.HP.STD ---
History of Present Illness Date of Admission: 07/27/18 Chief Complaint: Rectal bleed, altered mental status and hypotension The patient is a 63 year old F with multiple comorbidities including chronic back pain on oxycodone, Zanaflex and other medications came to ER with increased weakness for 1-2 days along with rectal bleed for about 12 days. As per triage note, patient also felt he is leaning on the left side. Prior to that, she was in ER recently on 07/16 and 07/25 for lower GI bleed and was seemed controlled and stable and therefore sent home for follow with Dr. Wynn for which she is scheduled for colonoscopy on 07/28. In ED, she was found hypotensive, SBP 90, hypoxic 83% on room air, tachypneic RR 26-30/min but not tachycardic. Basic lab work shows mild leukocytosis but H&H 12.0/38.5. Platelet count 223. INR 2.6, baseline 1.2 on 07/25. Severe hyperkalemia, K6.3, bicarb 23, sodium 133, BUN 33, creatinine 2.94. baseline BUN/creatinine runs 18/1.3. LFT shows significant AST 10,000/ALT 4541. Alk phos 150, total bili 2.3. Her LFTs were normal on 07/25 except alk phos 145. Patient is confused although oriented to time and place and person and therefore history is limited In ED, patient had right subclavian central venous catheter by ER physician. Chest x-ray shows lungs are clear but the tip of right subclavian catheter and right IJ. EKG shows normal sinus rhythm with first-degree AV block, QRS 136 ms, LAD with AV conduction delay. [] Past Medical History Past Medical History (Chronic Problems): Chronic Problems HTN (hypertension) (Chronic) Tobacco use disorder (Chronic) Esophageal reflux (Chronic) Depressive disorder (Chronic) Back ache (Chronic) Irritable bowel syndrome (IBS) (Chronic) Anxiety disorder (Chronic) Allergies duloxetine HCl [From Cymbalta] Adverse Reaction (Verified 07/25/18 09:39) Other morphine Adverse Reaction (Verified 07/25/18 09:39) Itching pramipexole di-HCl [From Mirapex] Adverse Reaction (Verified 07/25/18 09:39) Other Sulfa (Sulfonamide Antibiotics) Adverse Reaction (Verified 07/25/18 09:39) Unknown tramadol HCl [From Ultram] Adverse Reaction (Verified 07/25/18 09:39) Itching varenicline [From Chantix] Adverse Reaction (Verified 07/25/18 09:39) Unknown Home Medications: Ambulatory Orders Medication Instructions Recorded Acyclovir [Zovirax] 400 mg PO BID 08/20/13 Amitriptyline HCl [Elavil] 50 - 100 mg PO QHS 08/20/13 Nitroglycerin [Nitrostat] 0.4 mg SL PRN PRN 08/20/13 Oxycodone [Oxyir] 10 mg PO Q6H PRN PRN #40 tablet 09/05/13 Clonazepam [Klonopin] 0.5 mg PO QHS 08/14/15 Clopidogrel Bisulfate [Plavix] 75 mg PO DAILY 08/14/15 Metoprolol Tartrate [Lopressor 25 mg PO BID 08/14/15 (beta codie)] Tizanidine HCl [Zanaflex] 4 mg PO DAILY PRN PRN 08/14/15 Aspirin [Aspirin, Baby] 81 mg PO DAILY@0800 09/08/17 Dicyclomine HCl [Bentyl] 10 mg PO ACHS 09/08/17 Omeprazole 40 mg PO BID 09/08/17 Triamcinolone 0.025% Cream 1 applic TOPICAL BID PRN 09/08/17 [Kenalog] Amlodipine [Norvasc] 5 mg PO DAILY #60 tab 09/09/17 Lisinopril [Zestril] 20 mg PO DAILY #60 tab 09/09/17 Nystatin Powder [Mycostatin Powder] 1 applic TOPICAL 4X/DAY 07/16/18 Polyethylene Glycol 3350 [Miralax] 17 gm PO DAILY 07/16/18 Rosuvastatin Calcium [Crestor] 10 mg PO QHS 07/16/18 Surgical History: noncontributory, - - Uterine suspension, coronary artery stent placement Lives: Spouse/ Significant Other Smoking Status: Current every day smoker Alcohol: Occasional - Uncertain the amount - *Family History Maternal History Items: No pertinent history - Patient was adopted Paternal History Items: No pertinent history - Was adopted Review of Systems Constitutional: Reports: Malaise, Weakness, Fatigue. Denies: Chills, Fever, Weight Change Eyes: Denies: Blurred vision HEENT: Denies: Head Aches, Sinus Congestion, Sinus Drainage, Sore Throat Cardiovascular: Denies: Chest Pain, Palpitations Respiratory: Reports: Shortness of Breath. Denies: Cough, Shortness of breath at rest, Sputum production Gastrointestinal: Reports: Abdominal Pain - On the right lower quadrant for 2-3 days, Hematochezia, Nausea. Denies: Vomiting Genitourinary: Denies: Dysuria, Frequency, Hematuria, Retention Musculoskeletal: Denies: Joint Pain, Joint Tenderness Skin: Denies: Rash, Wounds Neurological: Denies: Numbness, Tingling, Focal weakness Psychiatric: Denies: Anxiety, Depression, Homicidal Ideations, Suicidal Ideations Hematologic/ Lymphatic: Reports: Easy Bruising Unable to obtain accurate/complete ROS d/t: Patient is confused and does not remember well probably encephalopathy VTE Information - Inpt Only VTE Present on Admission: No VTE Mechan Device Prophylaxis: SCD's VTE Pharm Prophylaxis ordered?: No Reason prophylaxis not ordered:: Medical Contraindication - Active GI bleed Patient Problems: Active and Suspected Problems Shock, unspecified (Acute) GI bleed (Acute) Acute liver failure (Acute) Coagulopathy (Acute) UTI (urinary tract infection) (Acute) Hepatic encephalopathy (Acute) - Physical Exam General: Oriented x3, Cooperative, Confused, Lethargic HEENT: Atraumatic, PERRLA, EOMI, Normocephalic Oral: Dry Mucosa Neck: Supple, No JVD, Negative Carotid Bruits Lungs: Clear to auscultation, No rhonchi, No wheeze, No rales, Diminished - Air entry is diminished Cardiovascular: Regular rate, Regular Rhythm, Normal S1, Normal S2, No murmurs, - - Intraventricular conduction delay Abdomen: Bowel Sounds Present, Soft, Non-Distended, Tender - Mild tenderness over right lower quadrant Extremities: Capillary Refill Less than 3 Seconds, Edema Skin: No rashes, No breakdown Musculoskeletal: No Tenderness to Palpation of Joints or Extremities, Arthritic Changes, Muscle Wasting Neurological: Cranial nerves II-XII grossly intact, Deep Tendon Reflexes 2+/4 and Symmetrical, Neuro grossly intact Psych/Mental Status: Anxious, Restless Vital Signs Temp Pulse Resp BP Pulse Ox 98.9 F 79 20 H 155/67 H 96 07/27/18 13:00 07/27/18 13:41 07/27/18 13:41 07/27/18 13:41 07/27/18 13:41 Oxygen Flow Rate (L/min) 3 Oxygen Delivery Method Nasal Cannula Weight: 230 lb 2.601 oz Body Mass Index (BMI) 34.0 Finger Stick Blood Glucose 199 Laboratory Tests Past 24 Hrs 07/27/18 07/27/18 07/27/18 10:30 10:30 10:30 WBC 14.5 H RBC 4.16 L Hgb 12.0 Hct 38.5 MCV 92.5 MCH 28.8 MCHC 31.2 L RDW 14.6 RDW Differential 48.7 H Plt Count 223 MPV 10.1 Immature Gran % (Auto) 0.400 Neut % (Auto) 86.8 H Lymph % (Auto) 3.9 L [place] % (Auto) 8.8 Eos % (Auto) 0.0 Baso % (Auto) 0.1 Absolute Neuts (auto) 12.6 H Absolute Lymphs (auto) 0.56 L Total Counted Not Reportable Differential Comment COMMENT PT 27.7 H INR 2.6 Specimen Type Sample Site pH Bicarbonate Actual POC Total CO2 Base Excess O2 Saturation ABG pCO2 ABG pO2 Shahbaz Test O2 Delivery Device Liter Flow Blood Gas Notified Whom Blood Gas Notified Time Sodium 133 L Potassium 6.3 H* Chloride 99 Carbon Dioxide 23.0 Anion Gap 11 BUN 33 H Creatinine 2.94 H Estim Creat Clear Calc 19.94 Est GFR (MDRD) Af Amer 21 L Est GFR (MDRD) Non-Af 17 L BUN/Creatinine Ratio 11.2 Glucose 166 H Lactic Acid Calcium 7.6 L Total Bilirubin 2.30 H AST 71666 H ALT 4541 H Alkaline Phosphatase 150 H Troponin I 0.504 H Total Protein 6.6 Albumin 3.2 Globulin 3.4 Albumin/Globulin Ratio 0.9 Lipase 81 Urine Color Urine Clarity Urine pH Ur Specific [place] Urine Protein Urine Glucose (UA) Urine Ketones Urine Occult Blood Urine Nitrite Urine Bilirubin Urine Urobilinogen Ur Leukocyte Esterase Urine RBC Urine WBC Ur Squamous Epith Cells Amorphous Sediment Urine Bacteria Urine Mucus Ethyl Alcohol Acetone Level 07/27/18 07/27/18 07/27/18 10:30 10:30 10:30 WBC RBC Hgb Hct MCV MCH MCHC RDW RDW Differential Plt Count MPV Immature Gran % (Auto) Neut % (Auto) Lymph % (Auto) [place] % (Auto) Eos % (Auto) Baso % (Auto) Absolute Neuts (auto) Absolute Lymphs (auto) Total Counted Differential Comment PT INR Specimen Type Sample Site pH Bicarbonate Actual POC Total CO2 Base Excess O2 Saturation ABG pCO2 ABG pO2 Shahbaz Test O2 Delivery Device Liter Flow Blood Gas Notified Whom Blood Gas Notified Time Sodium Potassium Chloride Carbon Dioxide Anion Gap BUN Creatinine Estim Creat Clear Calc Est GFR (MDRD) Af Amer Est GFR (MDRD) Non-Af BUN/Creatinine Ratio Glucose Lactic Acid 4.5 H* Calcium Total Bilirubin AST ALT Alkaline Phosphatase Troponin I Total Protein Albumin Globulin Albumin/Globulin Ratio Lipase Urine Color Urine Clarity Urine pH Ur Specific [place] Urine Protein Urine Glucose (UA) Urine Ketones Urine Occult Blood Urine Nitrite Urine Bilirubin Urine Urobilinogen Ur Leukocyte Esterase Urine RBC Urine WBC Ur Squamous Epith Cells Amorphous Sediment Urine Bacteria Urine Mucus Ethyl Alcohol 11.0 Acetone Level NEGATIVE 07/27/18 07/27/18 11:27 12:04 WBC RBC Hgb Hct MCV MCH MCHC RDW RDW Differential Plt Count MPV Immature Gran % (Auto) Neut % (Auto) Lymph % (Auto) [place] % (Auto) Eos % (Auto) Baso % (Auto) Absolute Neuts (auto) Absolute Lymphs (auto) Total Counted Differential Comment PT INR Specimen Type ART Sample Site R Radial pH 7.29 L Bicarbonate Actual 20.6 L POC Total CO2 22 Base Excess -6 L O2 Saturation 94 L ABG pCO2 42.5 ABG pO2 79 Shahbaz Test POS O2 Delivery Device Nasal Can Liter Flow 4.0 Blood Gas Notified Whom ED MD Blood Gas Notified Time 1126 Sodium Potassium Chloride Carbon Dioxide Anion Gap BUN Creatinine Estim Creat Clear Calc Est GFR (MDRD) Af Amer Est GFR (MDRD) Non-Af BUN/Creatinine Ratio Glucose Lactic Acid Calcium Total Bilirubin AST ALT Alkaline Phosphatase Troponin I Total Protein Albumin Globulin Albumin/Globulin Ratio Lipase Urine Color Yellow Urine Clarity Sl. Cloudy Urine pH 5.0 Ur Specific [place] 1.025 Urine Protein 100 H Urine Glucose (UA) Normal Urine Ketones 5 H Urine Occult Blood 250 H Urine Nitrite Negative Urine Bilirubin 3 H Urine Urobilinogen 4 H Ur Leukocyte Esterase 100 H Urine RBC 25-50 SEEN Urine WBC 10-25 SEEN Ur Squamous Epith Cells 0-5 SEEN Amorphous Sediment 2+ Urine Bacteria 1+ Urine Mucus 0 SEEN Ethyl Alcohol Acetone Level POC Glucose 07/27/18 10:51 POC Glucose 191 H Assessment/Plan All Active Problems Frequent falls (Acute) Shock, unspecified (Acute) GI bleed (Acute) Acute liver failure (Acute) Coagulopathy (Acute) UTI (urinary tract infection) (Acute) Hepatic encephalopathy (Acute) Lightheadedness (Acute) Unsteady gait (Acute) Headache (Acute) Chest pain (Acute) Weakness of both arms (Resolved) Numbness and tingling of right face (Resolved) Difficulty speaking (Resolved) NSTEMI (non-ST elevated myocardial infarction) (Resolved) Jaw pain (Resolved) The patient is a 63 year old F with multiple comorbidities including chronic back pain on oxycodone, Zanaflex and other medications came to ER with increased weakness for 1-2 days along with rectal bleed for about 12 days. As per triage note, patient also felt he is leaning on the left side. Prior to that, she was in ER recently on 07/16 and 07/25 for lower GI bleed and was seemed controlled and stable and therefore sent home for follow with Dr. Wynn for which she is scheduled for colonoscopy on 07/28. In ED, she was found hypotensive, SBP 90, hypoxic 83% on room air, tachypneic RR 26-30/min but not tachycardic. Basic lab work shows mild leukocytosis but H&H 12.0/38.5. Platelet count 223. INR 2.6, baseline 1.2 on 07/25. Severe hyperkalemia, K6.3, bicarb 23, sodium 133, BUN 33, creatinine 2.94. baseline BUN/creatinine runs 18/1.3. LFT shows significant AST 10,000/ALT 4541. Alk phos 150, total bili 2.3. Her LFTs were normal on 07/25 except alk phos 145. Patient is confused although oriented to time and place and person and therefore history is limited In ED, patient had right subclavian central venous catheter by ER physician. Chest x-ray shows lungs are clear but the tip of right subclavian catheter and right IJ. EKG shows normal sinus rhythm with first-degree AV block, QRS 136 ms, LAD with AV conduction delay. Patient had recent CT abdomen without oral and IV contrast which reported as fatty liver but normal gallbladder and extrahepatic bili system. Normal spleen and pancreas. Normal small intestine and colon. 1. Hypotension most probably from acute liver injury/severe sepsis: Lactic acid is 4.5. Lactic acid may be elevated from hypoperfusion/severe sepsis or acute liver injury. Patient is being admitted in ICU. Patient had IV Zosyn in ED. We will continue Zosyn until we rule out sepsis. Continue IV fluid normal saline. Gonzales culture. Respiratory panel ordered. Char Filter Tank Tender is consulted. 2. Acute liver injury, most probably drug-induced liver injury with mild encephalopathy, most probably metabolic encephalopathy/hepatic encephalopathy: Patient has been taking oxycodone, Zovirax, tizanidine, Klonopin and amitriptyline and Crestor. Hold all home medications except metoprolol. Serum Tylenol, ammonia, GGTP, U tox and acute hepatitis panel ordered. Monitor LFT. Right upper quadrant sonogram ordered. 3. Acute kidney injury on CKD stage III with severe hypo this is not skip 1913-02-18 kalemia: EKG does not show hyperkalemic changes. Patient was given hyperkalemia cocktail in ED. Kayexalate ordered. Repeat BMP. 4. Electrolyte abnormalities: ABG shows 7.29/42/79 on 4 L of oxygen. Normal anion gap metabolic acidosis. Hyperkalemia, hyponatremia: On IV fluid normal saline. 5. History of non-STEMI with chronic systolic heart failure: Patient had echo in 2015 reported as EF 45% with moderate global hypokinesis. Mildly dilated LV. Left atrium moderately enlarged. Mild diffuse mitral thickening with 2+ eccentric MR. Normal tricuspid valve. Normal aortic valve. She had normal pharmacological stress test in November 2014. Patient was seen by Dr. Qureshi in 2014, [facility] director it project. As per his note, patient had cardiac cath in past with normal epicardial coronaries. Differential diagnosis was Takasubo or microvascular angina or vasospasm angina. Denies chest pain this time. 6. Chronic nicotine use: Patient smokes 1 pack cigarettes daily since teenage. She admits drinking alcohol twice a week about 5-6 shots of whiskey for last 3 weeks continuously. Denies chronic alcohol use Hypertension: Currently blood pressure is on lower side. Other multiple comorbidities include multiple degenerative joint disease, chronic back pain on pain medications, depression, irritable bowel syndrome, anxiety and depression: Prognosis is guarded. DVT prophylaxis: On bilateral SCDs. Laboratory Results 07/27/18 10:30: WBC 14.5 H, RBC 4.16 L, Hgb 12.0, Hct 38.5, MCV 92.5, MCH 28.8, MCHC 31.2 L, RDW 14.6, RDW Differential 48.7 H, Plt Count 223, MPV 10.1, Immature Gran % (Auto) 0.400, Neut % (Auto) 86.8 H, Lymph % (Auto) 3.9 L, [place] % (Auto) 8.8, Eos % (Auto) 0.0, Baso % (Auto) 0.1, Absolute Neuts (auto) 12.6 H, Absolute Lymphs (auto) 0.56 L, Total Counted Not Reportable, Differential Comment COMMENT 07/27/18 10:30: PT 27.7 H, INR 2.6 07/27/18 10:30: Sodium 133 L, Potassium 6.3 H*, Chloride 99, Carbon Dioxide 23.0, Anion Gap 11, BUN 33 H, Creatinine 2.94 H, Estim Creat Clear Calc 19.94, Est GFR (MDRD) Af Amer 21 L, Est GFR (MDRD) Non-Af 17 L, BUN/Creatinine Ratio 11.2, Glucose 166 H, Calcium 7.6 L, Total Bilirubin 2.30 H, AST 32590 H, ALT 4541 H, Alkaline Phosphatase 150 H, Troponin I 0.504 H, Total Protein 6.6, Albumin 3.2, Globulin 3.4, Albumin/Globulin Ratio 0.9, Lipase 81 07/27/18 10:30: Ethyl Alcohol 11.0 07/27/18 10:30: Lactic Acid 4.5 H* 07/27/18 10:30: Acetone Level NEGATIVE 07/27/18 10:51: POC Glucose 191 H 07/27/18 11:27: Specimen Type ART, Sample Site R Radial, pH 7.29 L, Bicarbonate Actual 20.6 L, POC Total CO2 22, Base Excess -6 L, O2 Saturation 94 L, ABG pCO2 42.5, ABG pO2 79, Shahbaz Test POS, O2 Delivery Device Nasal Can, Liter Flow 4.0, Blood Gas Notified Whom ED , Blood Gas Notified Time 1126 07/27/18 12:04: Urine Color Yellow, Urine Clarity Sl. Cloudy, Urine pH 5.0, Ur Specific [place] 1.025, Urine Protein 100 H, Urine Glucose (UA) Normal, Urine Ketones 5 H, Urine Occult Blood 250 H, Urine Nitrite Negative, Urine Bilirubin 3 H, Urine Urobilinogen 4 H, Ur Leukocyte Esterase 100 H, Urine RBC 25-50 SEEN, Urine WBC 10-25 SEEN, Ur Squamous Epith Cells 0-5 SEEN, Amorphous Sediment 2+, Urine Bacteria 1+, Urine Mucus 0 SEEN Code Visit Inpatient E&M: 40306 Init Hosp L3
--- NOTE | 2018-07-27 13:48 | NURSING ---
ICU 1 SEPSIS WITH ACUTE LIVER INJURY JEWELL
--- NOTE | 2018-07-27 13:54 | PCM.CON.CC ---
Reason for Consult Date of Consultation: 07/27/18 Reason for Consultation: Acute liver injury/coagulopathy History of Present Illness: The patient is a 63-year-old female, with a history as outlined below, who presented to the emergency department on July 27 with complaints of generalized weakness, abdominal pain and rectal bleeding. The patient reports that she has been experiencing rectal bleeding for approximately 12 days. She was actually scheduled to undergo endoscopic evaluation by Dr. Garcia. She does have a history of both alcohol and tobacco dependence. She claims that she drinks whiskey approximately 2 times per week. However, I do suspect that she is grossly underestimating her alcohol intake. She also reports that she smokes approximately 1 pack of cigarettes daily. She also reports that she is prescribed oxycodone for pain related issues, but denies the presence of excessive Tylenol intake. She denies chronic NSAID utilization. She is on a statin in her home environment. The patient claims that her last alcoholic drink was approximately 1 week ago. She does report that she becomes shaky when she has not to drinking. On presentation to the emergency department, the patient was noted to be afebrile and hemodynamically stable. Laboratory evaluation revealed a mildly elevated white blood cell count of 14,000. INR was elevated to 2.6. Chemistry profile revealed a sodium of 133, potassium of 6.3, and creatinine of 2.94, which is an acute increase from previous. Lactate was elevated at 4.5. Total bili was increased to 2.3. AST was increased to 10,059 with an elevated ALT to 4541. Alkaline phosphatase was increased to 150. Troponin was increased to 0.504. Urinalysis was positive for leukocyte esterase, urine white blood cells and 1+ urine bacteria. Alcohol level was noted to be 11.0. Acetone level was negative. Head CT only revealed chronic involutional changes of the brain. A subclavian central venous catheter was placed in the emergency department. A follow-up plain film chest x-ray revealed no acute cardiopulmonary process, but did demonstrate that the right-sided subclavian catheter did turn upward into the internal jugular vein. The patient received supplemental IV fluids and was started empirically on Zosyn. She was then admitted to the medical intensive care unit for ongoing management. Past Medical History Past Medical History (Chronic Problems): Chronic Problems HTN (hypertension) (Chronic) Tobacco use disorder (Chronic) Esophageal reflux (Chronic) Depressive disorder (Chronic) Back ache (Chronic) Irritable bowel syndrome (IBS) (Chronic) Anxiety disorder (Chronic) Allergies duloxetine HCl [From Cymbalta] Adverse Reaction (Verified 07/25/18 09:39) Other morphine Adverse Reaction (Verified 07/25/18 09:39) Itching pramipexole di-HCl [From Mirapex] Adverse Reaction (Verified 07/25/18 09:39) Other Sulfa (Sulfonamide Antibiotics) Adverse Reaction (Verified 07/25/18 09:39) Unknown tramadol HCl [From Ultram] Adverse Reaction (Verified 07/25/18 09:39) Itching varenicline [From Chantix] Adverse Reaction (Verified 07/25/18 09:39) Unknown Home Medications: Ambulatory Orders Medication Instructions Recorded Acyclovir [Zovirax] 400 mg PO BID 08/20/13 Amitriptyline HCl [Elavil] 100 - 150 mg PO QHS PRN 08/20/13 Nitroglycerin [Nitrostat] 0.4 mg SL PRN PRN 08/20/13 Oxycodone [Oxyir] 10 mg PO Q6H PRN PRN #40 tablet 09/05/13 Clonazepam [Klonopin] 0.5 mg PO QHS 08/14/15 Clopidogrel Bisulfate [Plavix] 75 mg PO DAILY 08/14/15 Metoprolol Tartrate [Lopressor 25 mg PO BID 08/14/15 (beta codie)] Tizanidine HCl [Zanaflex] 4 mg PO DAILY PRN PRN 08/14/15 Aspirin [Aspirin, Baby] 81 mg PO DAILY@0800 09/08/17 Dicyclomine HCl [Bentyl] 10 mg PO ACHS 09/08/17 Omeprazole 40 mg PO BID 09/08/17 Triamcinolone 0.025% Cream 1 applic TOPICAL BID PRN 09/08/17 [Kenalog] Amlodipine [Norvasc] 5 mg PO DAILY #60 tab 09/09/17 Lisinopril [Zestril] 20 mg PO DAILY #60 tab 09/09/17 Nystatin Powder [Mycostatin Powder] 1 applic TOPICAL 4X/DAY 07/16/18 Polyethylene Glycol 3350 [Miralax] 17 gm PO DAILY 07/16/18 Rosuvastatin Calcium [Crestor] 10 mg PO QHS 07/16/18 Albuterol Inhaler [Ventolin Hfa 2 puff INHALATION Q4H PRN PRN 07/27/18 (SP)] Mupirocin [Bactroban] 1 applic TOPICAL TID 07/27/18 Sertraline HCl [Zoloft] 50 mg PO DAILY 07/27/18 busPIRone [Buspar] 15 mg PO BID 07/27/18 Surgical History: noncontributory, - - Uterine suspension, coronary artery stent placement Lives: Spouse/ Significant Other Smoking Status: Current every day smoker Alcohol: Occasional - Uncertain the amount - *Family History Maternal History Items: No pertinent history - Patient was adopted Paternal History Items: No pertinent history - Was adopted Review of Systems Constitutional: Reports: Malaise, Weakness, Fatigue Eyes: Denies: Blurred vision, Double vision HEENT: Denies: Head Aches, Sinus Congestion, Sinus Drainage Cardiovascular: Denies: Chest Pain, Palpitations Respiratory: Denies: Shortness of Breath Gastrointestinal: Reports: Abdominal Pain, Hematochezia. Denies: Nausea, Vomiting Genitourinary: Denies: Dysuria Musculoskeletal: Reports: Back Pain Skin: Denies: Rash, Wounds Neurological: Denies: Numbness, Tingling, Focal weakness Psychiatric: Denies: Anxiety, Depression, Homicidal Ideations, Suicidal Ideations Hematologic/ Lymphatic: Reports: Anemia Patient Problems: Active and Suspected Problems Shock, unspecified (Acute) GI bleed (Acute) Acute liver failure (Acute) Coagulopathy (Acute) UTI (urinary tract infection) (Acute) Hepatic encephalopathy (Acute) Objective: The patient's most recent lab work, culture data and imaging studies have all been personally reviewed. - Physical Exam General: Alert, Cooperative, No apparent distress, Confused HEENT: Atraumatic, PERRLA, Normocephalic Oral: No Gingival or Mucosal Lesions/ Ulcerations, Dry Mucosa Neck: Supple, No Nodes, Trachea Midline, - - Right IJ central venous catheter in place Lungs: No rhonchi, No wheeze, No rales, Diminished Cardiovascular: Regular rate, Regular Rhythm, Normal S1, Normal S2, No murmurs Abdomen: Bowel Sounds Present, Soft, Non Tender, - - Mild, diffuse, non focal tenderness to palpation. No rebound, guarding or rigidity. Extremities: No clubbing, No cyanosis, Edema Skin: No breakdown Musculoskeletal: No Muscle Wasting Lymphatic: No Cervical, Supraclavicular, or Inguinal Adenopathy Neurological: Neuro grossly intact Psych/Mental Status: Flat Affect Vital Signs Temp Pulse Resp BP Pulse Ox 37.2 C 79 20 H 155/67 H 96 07/27/18 13:00 07/27/18 13:41 07/27/18 13:41 07/27/18 13:41 07/27/18 13:41 Oxygen Flow Rate (L/min) 3 Oxygen Delivery Method Nasal Cannula Weight: 230 lb 2.601 oz Body Mass Index (BMI) 34.0 Finger Stick Blood Glucose 199 Laboratory Tests Past 24 Hrs 07/27/18 07/27/18 07/27/18 10:30 10:30 10:30 WBC 14.5 H RBC 4.16 L Hgb 12.0 Hct 38.5 MCV 92.5 MCH 28.8 MCHC 31.2 L RDW 14.6 RDW Differential 48.7 H Plt Count 223 MPV 10.1 Immature Gran % (Auto) 0.400 Neut % (Auto) 86.8 H Lymph % (Auto) 3.9 L [place] % (Auto) 8.8 Eos % (Auto) 0.0 Baso % (Auto) 0.1 Absolute Neuts (auto) 12.6 H Absolute Lymphs (auto) 0.56 L Total Counted Not Reportable Differential Comment COMMENT PT 27.7 H INR 2.6 Specimen Type Sample Site pH Bicarbonate Actual POC Total CO2 Base Excess O2 Saturation ABG pCO2 ABG pO2 Shahbaz Test O2 Delivery Device Liter Flow Blood Gas Notified Whom Blood Gas Notified Time Sodium 133 L Potassium 6.3 H* Chloride 99 Carbon Dioxide 23.0 Anion Gap 11 BUN 33 H Creatinine 2.94 H Estim Creat Clear Calc 19.94 Est GFR (MDRD) Af Amer 21 L Est GFR (MDRD) Non-Af 17 L BUN/Creatinine Ratio 11.2 Glucose 166 H Lactic Acid Calcium 7.6 L Total Bilirubin 2.30 H AST 10316 H ALT 4541 H Alkaline Phosphatase 150 H Troponin I 0.504 H Total Protein 6.6 Albumin 3.2 Globulin 3.4 Albumin/Globulin Ratio 0.9 Lipase 81 Urine Color Urine Clarity Urine pH Ur Specific [place] Urine Protein Urine Glucose (UA) Urine Ketones Urine Occult Blood Urine Nitrite Urine Bilirubin Urine Urobilinogen Ur Leukocyte Esterase Urine RBC Urine WBC Ur Squamous Epith Cells Amorphous Sediment Urine Bacteria Urine Mucus Ethyl Alcohol Acetone Level 07/27/18 07/27/18 07/27/18 10:30 10:30 10:30 WBC RBC Hgb Hct MCV MCH MCHC RDW RDW Differential Plt Count MPV Immature Gran % (Auto) Neut % (Auto) Lymph % (Auto) [place] % (Auto) Eos % (Auto) Baso % (Auto) Absolute Neuts (auto) Absolute Lymphs (auto) Total Counted Differential Comment PT INR Specimen Type Sample Site pH Bicarbonate Actual POC Total CO2 Base Excess O2 Saturation ABG pCO2 ABG pO2 Shahbaz Test O2 Delivery Device Liter Flow Blood Gas Notified Whom Blood Gas Notified Time Sodium Potassium Chloride Carbon Dioxide Anion Gap BUN Creatinine Estim Creat Clear Calc Est GFR (MDRD) Af Amer Est GFR (MDRD) Non-Af BUN/Creatinine Ratio Glucose Lactic Acid 4.5 H* Calcium Total Bilirubin AST ALT Alkaline Phosphatase Troponin I Total Protein Albumin Globulin Albumin/Globulin Ratio Lipase Urine Color Urine Clarity Urine pH Ur Specific [place] Urine Protein Urine Glucose (UA) Urine Ketones Urine Occult Blood Urine Nitrite Urine Bilirubin Urine Urobilinogen Ur Leukocyte Esterase Urine RBC Urine WBC Ur Squamous Epith Cells Amorphous Sediment Urine Bacteria Urine Mucus Ethyl Alcohol 11.0 Acetone Level NEGATIVE 07/27/18 07/27/18 11:27 12:04 WBC RBC Hgb Hct MCV MCH MCHC RDW RDW Differential Plt Count MPV Immature Gran % (Auto) Neut % (Auto) Lymph % (Auto) [place] % (Auto) Eos % (Auto) Baso % (Auto) Absolute Neuts (auto) Absolute Lymphs (auto) Total Counted Differential Comment PT INR Specimen Type ART Sample Site R Radial pH 7.29 L Bicarbonate Actual 20.6 L POC Total CO2 22 Base Excess -6 L O2 Saturation 94 L ABG pCO2 42.5 ABG pO2 79 Shahbaz Test POS O2 Delivery Device Nasal Can Liter Flow 4.0 Blood Gas Notified Whom ED Blood Gas Notified Time 1126 Sodium Potassium Chloride Carbon Dioxide Anion Gap BUN Creatinine Estim Creat Clear Calc Est GFR (MDRD) Af Amer Est GFR (MDRD) Non-Af BUN/Creatinine Ratio Glucose Lactic Acid Calcium Total Bilirubin AST ALT Alkaline Phosphatase Troponin I Total Protein Albumin Globulin Albumin/Globulin Ratio Lipase Urine Color Yellow Urine Clarity Sl. Cloudy Urine pH 5.0 Ur Specific [place] 1.025 Urine Protein 100 H Urine Glucose (UA) Normal Urine Ketones 5 H Urine Occult Blood 250 H Urine Nitrite Negative Urine Bilirubin 3 H Urine Urobilinogen 4 H Ur Leukocyte Esterase 100 H Urine RBC 25-50 SEEN Urine WBC 10-25 SEEN Ur Squamous Epith Cells 0-5 SEEN Amorphous Sediment 2+ Urine Bacteria 1+ Urine Mucus 0 SEEN Ethyl Alcohol Acetone Level POC Glucose 07/27/18 10:51 POC Glucose 191 H Clinical Impression(s) from Imaging Studies Brain CT 07/27/18 09:54 IMPRESSION: Chronic involutional changes of the brain. Electronically Signed: Doug Stephanie, at 11:41 EDT , Service support , Chest X-Ray 07/27/18 10:29 IMPRESSION: The tip of the right subclavian catheter is in the right internal jugular vein. Cardiomegaly. The lungs are clear. Electronically Signed: Doug Brown, at 12:27 EDT , Service support , Assessment/Plan Active and Suspected Problems Shock, unspecified (Acute) GI bleed (Acute) Acute liver failure (Acute) Coagulopathy (Acute) UTI (urinary tract infection) (Acute) Hepatic encephalopathy (Acute) RECOMMENDATIONS: 1. Given hemodynamic stability, recommend obtaining peripheral IV access and removing central venous catheter. 2. Hold all potentially hepatotoxic medications. 3. Continue empiric antibiotics, pending infectious workup. 4. Continue supplemental IV fluid hydration. 5. Medical management of hyperkalemia. 6. Recheck coags and liver function profile in the morning. 7. If no improvement in renal function, consider nephrology consultation in the morning. 8. Check Tylenol level and ammonia level. 9. Send hepatitis panel and obtain toxicology screen. 10. Obtain right upper quadrant ultrasound IMPRESSIONS: 1. Acute liver injury/coagulopathy Considerations include toxic effect from medications (drug induced liver injury) with subsequent impaired synthetic function leading to coagulopathy. Recommend checking serum Tylenol level as well as ammonia. Obtain right upper quadrant ultrasound. The patient's elevated transaminase levels appear to be acute, as they were noted to be normal on July 25. Will obtain hepatitis panel as well. Continue supplemental IV fluid hydration. Monitor transaminase levels and INR serially. Continue to withhold all potential hepatotoxic medications. 2. Acute on chronic kidney disease/hyperkalemia Potentially prerenal in etiology. An alternative consideration, given the patient's acute liver injury, would also include that for possible hepatorenal syndrome. We will plan to continue medical management of the patient's hyperkalemia. Monitor urine output overnight. If there is no improvement in the patient's renal function, will obtain nephrology consultation. 3. Rectal bleeding The patient reports rectal bleeding over the last 2 weeks. She was initially referred to undergo endoscopic evaluation on an outpatient basis. At the current time, the patient is not actively bleeding. We will continue to monitor. Surgery is following. 4. Encephalopathy Most likely metabolic in nature and related to the patient's underlying impaired hepatic function. Recommend checking serum ammonia level. This may need to be treated if found to be elevated. 5. Troponin elevation/history of systolic heart failure Continue to trend troponins until they plateau and/or downtrending. Obtain surface echocardiogram. 6. Chronic alcohol and tobacco dependency Monitor for signs of alcohol withdrawal. Nicotine replacement therapy can be considered while the patient is admitted to the hospital. 7. Depression/chronic pain syndrome/hypertension/GERD/hyperlipidemia/obesity Complicates care, management, recovery and prognosis. Continue to hold all potential hepatotoxic medications. Continue to hold antihypertensives, given acute kidney injury. This note was generated with [employer] dictation software. It may contain incorrect words, spelling, and punctuation that were not noted in checking the note before signing. Code Visit Inpatient E&M: 45979 Init Hosp L3
[2018-07-27 14:28] LABS: Anion Gap 9 (5-15); BUN 34 mg/dL (7-18); BUN/Creat Ratio 12.1 RATIO (10-20); Calcium,Total 6.6 mg/dL (8.5-10.1); Chloride 104 mmol/L (98-107); EST Glomerular Filtration Rate 18 mL/min (>60); Est Glom Filt Rate - Afr Amer 22 mL/min (>60); Estimated Creatinine Clearance 20.93 ml/min; GGTP 69 U/L (5-55); Glucose 221 mg/dL (74-106); Potassium 5.5 mmol/L (3.5-5.1); Sodium Level 135 mmol/L (136-145)
[2018-07-27 14:33] LABS: Acetaminophen (Tylenol) Level < 2.0 ug/mL (10.0-30.0)
--- NOTE | 2018-07-27 14:45 | US_ITS ---
STUDY: ABDOMINAL ULTRASOUND - RIGHT UPPER QUADRANT REASON FOR VISIT: Female, 63 years old. Liver injury TECHNIQUE: Ultrasound evaluation of the right upper quadrant was performed with real-time and static villagran-scale imaging. TECHNICAL QUALITY: Adequate. COMPARISON: None. FINDINGS: Liver: The liver measures 19.6 cm. There is fatty echogenicity of the liver. The bile ducts are within normal limits. There is hepatic color flow. The direction of portal flow is hepatopetal. There is no demonstrated mass lesion. Gallbladder: A fold is noted within the gallbladder. The gallbladder wall measures 2.2 mm. There is a negative sonographic Schroeder's sign. There is mild pericholecystic fluid. There are no gallstones. Common Bile Duct (C.B.D.): The common bile duct measures 2.1 mm. Pancreas: Limited visualization of the pancreas. Right Kidney: Normal size of the right kidney. The right kidney measures 10.5 x 4.3 x 4.3 cm. Normal renal cortex. The right cortex measures 0.9 cm. There is no demonstrated renal mass or cyst. There is no right hydronephrosis. US/Abdomen Limited IMPRESSION: Enlarged fatty liver. Mild pericholecystic fluid. Electronically Signed: Josse Montenegro DO at 23:53 EDT Tel [phone], Service support ,
[2018-07-27 14:48] LABS: Reflex Lactate? Y
[2018-07-27 15:08] LABS: Amphetamine Urine VISTA NEGATIVE (<1000 ng/mL); Barbiturate Urine VISTA NEGATIVE (< 200 ng/mL); Benzodiazepine Urine VISTA NEGATIVE (< 200 ng/mL); Cocaine Urine VISTA NEGATIVE (< 300 ng/mL); Ecstacy Urine VISTA NEGATIVE (< 500 ng/mL); Methadone Urine VISTA NEGATIVE (< 300 ng/mL); PCP Urine VISTA NEGATIVE (< 25 ng/mL); THC Urine VISTA POSITIVE (< 50 ng/mL); Vista UDS pH Range 5
[2018-07-27] MEDS: oxyCODONE 5 MG Tablet PO ×2 (15:21→23:37)
[2018-07-27] MEDS: Sodium Polystyrene Sulfonate 15 GM/60 ML UDC PO (15:22)
[2018-07-27] MEDS: Nystatin Powder 15gm Bottle 1 APPLIC TOPICAL ×2 (15:57→21:19)
[2018-07-27 16:39] LABS: Lactic Acid 2.6 mmol/L (0.4-2.0)
[2018-07-27 17:16] LABS: Bedside Glucose 205 mg/dL (70-110)
[2018-07-27] MEDS: Insulin Lispro 100 UNIT/ML INSULN.PEN SC (17:24)
[2018-07-27] MEDS: Metoprolol Tartrate 25 MG Tablet PO (21:19)
[2018-07-27] MEDS: Glucerna Shake 120 ML LIQUID PO (21:19)
--- NOTE | 2018-07-27 21:28 | PCM.CONS.GEN ---
Reason for Consult Date of Consultation: 07/27/18 Reason for Consultation: blood per rectum History of Present Illness: The patient is a 63 year old F who initially presented to the [facility] emergency department on July 25, 2018 with a complaint of passing blood per rectum. The patient stated she had been dealing with bright red blood per rectum for approximately one month she noted that she had some trace blood with her bowel movements. She denied true black tarry stools. She is on both aspirin and Plavix for previous history of myocardial infarction. The patient had a normal hemoglobin level and was discharged from [facility] with plans to follow-up in my office actually on July 28 for evaluation for endoscopy. The patient had a colonoscopy performed in 2009 for a complaint of chronic diarrhea by Dr. Schroeder which demonstrated small internal hemorrhoids a small adenomatous polyp and diverticulosis. he was recommended to undergo colonoscopy after 5 years but the patient declined. There is no record of upper endoscopy. she had CT scan of the abdomen and pelvis at that date which was unremarkable except for fatty infiltration of liver. the patient returns today with complaints of again rectal bleeding and now altered mental status and hypotension. The patient now notes increasing weakness for the past 2 days. In the emergency department she was found to be hypotensive with a systolic blood pressure of 90. She is found to be hypoxic with room air saturation of 83%. Laboratory studies were obtained which demonstrated a hemoglobin of 12, a platelet count of 223, and INR of 2.6. Which had increased from an INR of 1.2 on July 25. She was found to have severe hyperkalemia with a potassium of 6.3. Increased BUN/creatinine over the last 2 days and now a very significant increase in her liver enzymes with an AST of greater than 10,000 and ALT of 4500 - these enzymes were relatively unremarkable 2 days previously. The patient has a history of chronic back pain and is on oxycodone and other multiple medications. She also states that she drinks rather extensively at least 3 large glasses of whiskey per day and has withdrawal symptoms including delirium tremens if she stops drinking. I was consulted for rectal bleeding. the patient currently denies abdominal pain. She denies nausea or vomiting. She denies hematemesis. She denies a history of ulcers. Overall she seems to be a poor historian. Past Medical History Past Medical History (Chronic Problems): Chronic Problems HTN (hypertension) (Chronic) Tobacco use disorder (Chronic) Esophageal reflux (Chronic) Depressive disorder (Chronic) Back ache (Chronic) Irritable bowel syndrome (IBS) (Chronic) Anxiety disorder (Chronic) Allergies duloxetine HCl [From Cymbalta] Adverse Reaction (Verified 07/25/18 09:39) Other morphine Adverse Reaction (Verified 07/25/18 09:39) Itching pramipexole di-HCl [From Mirapex] Adverse Reaction (Verified 07/25/18 09:39) Other Sulfa (Sulfonamide Antibiotics) Adverse Reaction (Verified 07/25/18 09:39) Unknown tramadol HCl [From Ultram] Adverse Reaction (Verified 07/25/18 09:39) Itching varenicline [From Chantix] Adverse Reaction (Verified 07/25/18 09:39) Unknown Home Medications: Ambulatory Orders Medication Instructions Recorded Acyclovir [Zovirax] 400 mg PO BID 08/20/13 Amitriptyline HCl [Elavil] 100 - 150 mg PO QHS PRN 08/20/13 Nitroglycerin [Nitrostat] 0.4 mg SL PRN PRN 08/20/13 Oxycodone [Oxyir] 10 mg PO Q6H PRN PRN #40 tablet 09/05/13 Clonazepam [Klonopin] 0.5 mg PO QHS 08/14/15 Clopidogrel Bisulfate [Plavix] 75 mg PO DAILY 08/14/15 Metoprolol Tartrate [Lopressor 25 mg PO BID 08/14/15 (beta codie)] Tizanidine HCl [Zanaflex] 4 mg PO DAILY PRN PRN 08/14/15 Aspirin [Aspirin, Baby] 81 mg PO DAILY@0800 09/08/17 Dicyclomine HCl [Bentyl] 10 mg PO ACHS 09/08/17 Omeprazole 40 mg PO BID 09/08/17 Triamcinolone 0.025% Cream 1 applic TOPICAL BID PRN 09/08/17 [Kenalog] Amlodipine [Norvasc] 5 mg PO DAILY #60 tab 09/09/17 Lisinopril [Zestril] 20 mg PO DAILY #60 tab 09/09/17 Nystatin Powder [Mycostatin Powder] 1 applic TOPICAL 4X/DAY 07/16/18 Polyethylene Glycol 3350 [Miralax] 17 gm PO DAILY 07/16/18 Rosuvastatin Calcium [Crestor] 10 mg PO QHS 07/16/18 Albuterol Inhaler [Ventolin Hfa 2 puff INHALATION Q4H PRN PRN 07/27/18 (SP)] Mupirocin [Bactroban] 1 applic TOPICAL TID 07/27/18 Sertraline HCl [Zoloft] 50 mg PO DAILY 07/27/18 busPIRone [Buspar] 15 mg PO BID 07/27/18 Surgical History: noncontributory, - - Uterine suspension, coronary artery stent placement Lives: Spouse/ Significant Other Smoking Status: Current every day smoker Tobacco Use: Cigarettes Alcohol: Occasional - Uncertain the amount - *Family History Maternal History Items: No pertinent history - Patient was adopted Paternal History Items: No pertinent history - Was adopted Review of Systems Constitutional: Reports: Malaise, Weakness, Weight Change Cardiovascular: Denies: Chest Pain, Palpitations Respiratory: Denies: Cough, Shortness of breath at rest, Sputum production Gastrointestinal: Reports: Hematochezia. Denies: Abdominal Pain, Nausea, Vomiting Patient Problems: Active and Suspected Problems Shock, unspecified (Acute) GI bleed (Acute) Acute liver failure (Acute) Coagulopathy (Acute) UTI (urinary tract infection) (Acute) Hepatic encephalopathy (Acute) - Physical Exam General: Cooperative, No apparent distress Lungs: Clear to auscultation, Diminished Cardiovascular: Regular rate, Regular Rhythm Abdomen: Bowel Sounds Present, Soft, Non Tender, Distended Vital Signs Temp Pulse Resp BP Pulse Ox 98.1 F 89 20 H 156/72 H 94 07/27/18 20:00 07/27/18 21:19 07/27/18 21:00 07/27/18 21:00 07/27/18 21:00 Oxygen Flow Rate (L/min) 4 Oxygen Delivery Method Nasal Cannula Weight: 102.8 kg Body Mass Index (BMI) 33.5 Finger Stick Blood Glucose 199 Intake and Output for Last 24 Hours 07/25/18 07/26/18 07/27/18 23:59 23:59 23:59 Intake Total 541 / 541 Output Total 75 / 75 Balance 466 / 466 Laboratory Tests Past 24 Hrs 07/27/18 07/27/18 07/27/18 10:30 10:30 10:30 WBC 14.5 H RBC 4.16 L Hgb 12.0 Hct 38.5 MCV 92.5 MCH 28.8 MCHC 31.2 L RDW 14.6 RDW Differential 48.7 H Plt Count 223 MPV 10.1 Immature Gran % (Auto) 0.400 Neut % (Auto) 86.8 H Lymph % (Auto) 3.9 L [place] % (Auto) 8.8 Eos % (Auto) 0.0 Baso % (Auto) 0.1 Absolute Neuts (auto) 12.6 H Absolute Lymphs (auto) 0.56 L Total Counted Not Reportable Differential Comment COMMENT PT 27.7 H INR 2.6 Specimen Type Sample Site pH Bicarbonate Actual POC Total CO2 Base Excess O2 Saturation ABG pCO2 ABG pO2 Shahbaz Test O2 Delivery Device Liter Flow Blood Gas Notified Whom Blood Gas Notified Time Sodium 133 L Potassium 6.3 H* Chloride 99 Carbon Dioxide 23.0 Anion Gap 11 BUN 33 H Creatinine 2.94 H Estim Creat Clear Calc 19.94 Est GFR (MDRD) Af Amer 21 L Est GFR (MDRD) Non-Af 17 L BUN/Creatinine Ratio 11.2 Glucose 166 H Lactic Acid Calcium 7.6 L Total Bilirubin 2.30 H GGT AST 71220 H ALT 4541 H Alkaline Phosphatase 150 H Ammonia Troponin I 0.504 H Total Protein 6.6 Albumin 3.2 Globulin 3.4 Albumin/Globulin Ratio 0.9 Lipase 81 Urine Color Urine Clarity Urine pH Ur Specific [place] Urine Protein Urine Glucose (UA) Urine Ketones Urine Occult Blood Urine Nitrite Urine Bilirubin Urine Urobilinogen Ur Leukocyte Esterase Urine RBC Urine WBC Ur Squamous Epith Cells Amorphous Sediment Urine Bacteria Urine Mucus Urine Opiates Screen Urine Methadone Screen Acetaminophen Ur Barbiturates Screen Ur Phencyclidine Scrn Ur Amphetamines Screen U Methamphetamin-MDMA U Benzodiazepines Scrn Urine Cocaine Screen U Cannabinoids Screen Ur Drug Screen Comment Ethyl Alcohol Acetone Level Hepatitis A IgM Ab Hep Bs Antigen Hep B Core IgM Ab Hepatitis C Ab (EIA) 07/27/18 07/27/18 07/27/18 10:30 10:30 10:30 WBC RBC Hgb Hct MCV MCH MCHC RDW RDW Differential Plt Count MPV Immature Gran % (Auto) Neut % (Auto) Lymph % (Auto) [place] % (Auto) Eos % (Auto) Baso % (Auto) Absolute Neuts (auto) Absolute Lymphs (auto) Total Counted Differential Comment PT INR Specimen Type Sample Site pH Bicarbonate Actual POC Total CO2 Base Excess O2 Saturation ABG pCO2 ABG pO2 Shahbaz Test O2 Delivery Device Liter Flow Blood Gas Notified Whom Blood Gas Notified Time Sodium Potassium Chloride Carbon Dioxide Anion Gap BUN Creatinine Estim Creat Clear Calc Est GFR (MDRD) Af Amer Est GFR (MDRD) Non-Af BUN/Creatinine Ratio Glucose Lactic Acid 4.5 H* Calcium Total Bilirubin GGT AST ALT Alkaline Phosphatase Ammonia Troponin I Total Protein Albumin Globulin Albumin/Globulin Ratio Lipase Urine Color Urine Clarity Urine pH Ur Specific [place] Urine Protein Urine Glucose (UA) Urine Ketones Urine Occult Blood Urine Nitrite Urine Bilirubin Urine Urobilinogen Ur Leukocyte Esterase Urine RBC Urine WBC Ur Squamous Epith Cells Amorphous Sediment Urine Bacteria Urine Mucus Urine Opiates Screen Urine Methadone Screen Acetaminophen Ur Barbiturates Screen Ur Phencyclidine Scrn Ur Amphetamines Screen U Methamphetamin-MDMA U Benzodiazepines Scrn Urine Cocaine Screen U Cannabinoids Screen Ur Drug Screen Comment Ethyl Alcohol 11.0 Acetone Level NEGATIVE Hepatitis A IgM Ab Hep Bs Antigen Hep B Core IgM Ab Hepatitis C Ab (EIA) 07/27/18 07/27/18 07/27/18 11:27 12:04 13:45 WBC RBC Hgb Hct MCV MCH MCHC RDW RDW Differential Plt Count MPV Immature Gran % (Auto) Neut % (Auto) Lymph % (Auto) [place] % (Auto) Eos % (Auto) Baso % (Auto) Absolute Neuts (auto) Absolute Lymphs (auto) Total Counted Differential Comment PT INR Specimen Type ART Sample Site R Radial pH 7.29 L Bicarbonate Actual 20.6 L POC Total CO2 22 Base Excess -6 L O2 Saturation 94 L ABG pCO2 42.5 ABG pO2 79 Shahbaz Test POS O2 Delivery Device Nasal Can Liter Flow 4.0 Blood Gas Notified Whom ED Blood Gas Notified Time 1126 Sodium Potassium Chloride Carbon Dioxide Anion Gap BUN Creatinine Estim Creat Clear Calc Est GFR (MDRD) Af Amer Est GFR (MDRD) Non-Af BUN/Creatinine Ratio Glucose Lactic Acid Calcium Total Bilirubin GGT AST ALT Alkaline Phosphatase Ammonia Troponin I Total Protein Albumin Globulin Albumin/Globulin Ratio Lipase Urine Color Yellow Urine Clarity Sl. Cloudy Urine pH 5.0 Ur Specific [place] 1.025 Urine Protein 100 H Urine Glucose (UA) Normal Urine Ketones 5 H Urine Occult Blood 250 H Urine Nitrite Negative Urine Bilirubin 3 H Urine Urobilinogen 4 H Ur Leukocyte Esterase 100 H Urine RBC 25-50 SEEN Urine WBC 10-25 SEEN Ur Squamous Epith Cells 0-5 SEEN Amorphous Sediment 2+ Urine Bacteria 1+ Urine Mucus 0 SEEN Urine Opiates Screen Urine Methadone Screen Acetaminophen < 2.0 L Ur Barbiturates Screen Ur Phencyclidine Scrn Ur Amphetamines Screen U Methamphetamin-MDMA U Benzodiazepines Scrn Urine Cocaine Screen U Cannabinoids Screen Ur Drug Screen Comment Ethyl Alcohol Acetone Level Hepatitis A IgM Ab Hep Bs Antigen Hep B Core IgM Ab Hepatitis C Ab (EIA) 07/27/18 07/27/18 07/27/18 13:45 13:45 13:45 WBC RBC Hgb Hct MCV MCH MCHC RDW RDW Differential Plt Count MPV Immature Gran % (Auto) Neut % (Auto) Lymph % (Auto) [place] % (Auto) Eos % (Auto) Baso % (Auto) Absolute Neuts (auto) Absolute Lymphs (auto) Total Counted Differential Comment PT INR Specimen Type Sample Site pH Bicarbonate Actual POC Total CO2 Base Excess O2 Saturation ABG pCO2 ABG pO2 Shahbaz Test O2 Delivery Device Liter Flow Blood Gas Notified Whom Blood Gas Notified Time Sodium Potassium Chloride Carbon Dioxide Anion Gap BUN Creatinine Estim Creat Clear Calc Est GFR (MDRD) Af Amer Est GFR (MDRD) Non-Af BUN/Creatinine Ratio Glucose Lactic Acid Calcium Total Bilirubin GGT 69 H AST ALT Alkaline Phosphatase Ammonia 51.0 H Troponin I Total Protein Albumin Globulin Albumin/Globulin Ratio Lipase Urine Color Urine Clarity Urine pH Ur Specific [place] Urine Protein Urine Glucose (UA) Urine Ketones Urine Occult Blood Urine Nitrite Urine Bilirubin Urine Urobilinogen Ur Leukocyte Esterase Urine RBC Urine WBC Ur Squamous Epith Cells Amorphous Sediment Urine Bacteria Urine Mucus Urine Opiates Screen Urine Methadone Screen Acetaminophen Ur Barbiturates Screen Ur Phencyclidine Scrn Ur Amphetamines Screen U Methamphetamin-MDMA U Benzodiazepines Scrn Urine Cocaine Screen U Cannabinoids Screen Ur Drug Screen Comment Ethyl Alcohol Acetone Level Hepatitis A IgM Ab Pending Hep Bs Antigen Pending Hep B Core IgM Ab Pending Hepatitis C Ab (EIA) Pending 07/27/18 07/27/18 07/27/18 13:45 14:30 15:55 WBC RBC Hgb Hct MCV MCH MCHC RDW RDW Differential Plt Count MPV Immature Gran % (Auto) Neut % (Auto) Lymph % (Auto) [place] % (Auto) Eos % (Auto) Baso % (Auto) Absolute Neuts (auto) Absolute Lymphs (auto) Total Counted Differential Comment PT INR Specimen Type Sample Site pH Bicarbonate Actual POC Total CO2 Base Excess O2 Saturation ABG pCO2 ABG pO2 Shahbaz Test O2 Delivery Device Liter Flow Blood Gas Notified Whom Blood Gas Notified Time Sodium 135 L Potassium 5.5 H Chloride 104 Carbon Dioxide 22.0 Anion Gap 9 BUN 34 H Creatinine 2.80 H Estim Creat Clear Calc 20.93 Est GFR (MDRD) Af Amer 22 L Est GFR (MDRD) Non-Af 18 L BUN/Creatinine Ratio 12.1 Glucose 221 H Lactic Acid 2.6 H Calcium 6.6 L Total Bilirubin GGT AST ALT Alkaline Phosphatase Ammonia Troponin I Total Protein Albumin Globulin Albumin/Globulin Ratio Lipase Urine Color Urine Clarity Urine pH Ur Specific [place] Urine Protein Urine Glucose (UA) Urine Ketones Urine Occult Blood Urine Nitrite Urine Bilirubin Urine Urobilinogen Ur Leukocyte Esterase Urine RBC Urine WBC Ur Squamous Epith Cells Amorphous Sediment Urine Bacteria Urine Mucus Urine Opiates Screen POSITIVE H Urine Methadone Screen NEGATIVE Acetaminophen Ur Barbiturates Screen NEGATIVE Ur Phencyclidine Scrn NEGATIVE Ur Amphetamines Screen NEGATIVE U Methamphetamin-MDMA NEGATIVE U Benzodiazepines Scrn NEGATIVE Urine Cocaine Screen NEGATIVE U Cannabinoids Screen POSITIVE H Ur Drug Screen Comment Ethyl Alcohol Acetone Level Hepatitis A IgM Ab Hep Bs Antigen Hep B Core IgM Ab Hepatitis C Ab (EIA) POC Glucose 07/27/18 07/27/18 17:10 10:51 POC Glucose 205 H 191 H Assessment/Plan All Active Problems Frequent falls (Acute) Shock, unspecified (Acute) GI bleed (Acute) Acute liver failure (Acute) Coagulopathy (Acute) UTI (urinary tract infection) (Acute) Hepatic encephalopathy (Acute) Lightheadedness (Acute) Unsteady gait (Acute) Headache (Acute) Chest pain (Acute) Weakness of both arms (Resolved) Numbness and tingling of right face (Resolved) Difficulty speaking (Resolved) NSTEMI (non-ST elevated myocardial infarction) (Resolved) Jaw pain (Resolved) acute liver injury-likely secondary to alcohol abuse and steatohepatitis, lower GI bleeding, Electrolyte abnormalities, dehydration, hypotension The patient is currently admitted to the ICU. She has a central catheter placed. She is being resuscitated. Her liver enzymes will be monitored. We will follow her stool output and serial hematocrits to assure that she is not actively bleeding. currently her hemoglobin is at the lower limit of normal and her red cell parameters do not demonstrate an iron deficient pattern. Once the patient is stable from a hepatic injury and hypotensive standpoint, we will plan for bowel preparation and upper and lower endoscopy.
[2018-07-27] MEDS: 0.9% NaCl IVPB Med Flush (250 mL) 15 ML IV (21:44)
[2018-07-27 21:50] LABS: Bedside Glucose 134 mg/dL (70-110)
[2018-07-28] VITALS (34 sets, daily range): BP systolic 80–169; BP diastolic 52–106; PULSE 79–97; RESP 15–26; TEMP 36.2–36.9; O2SAT 90–100
[2018-07-28] MEDS: 0.9% Normal Saline 1,000 ML 150 ML IV (04:03)
[2018-07-28 05:05] LABS: Absolute Lymphocyte Count 0.91 X10^3/ul (0.83-4.51); Absolute Neutrophil Count 8.4 X10^3/uL (2.0-7.7); Basophil# 0.01 X10^3/uL; Basophil% 0.1 % (0-1); Eosinophil# 0.03 X10^3/uL; Eosinophils% 0.3 % (0-5); Hematocrit 36.5 % (37-47); Hemoglobin 11.4 g/dl (12.0-15.0); Lymphocyte # 0.91 X10^3/ul (4.0); Lymphocyte % 9.1 % (19-41); Mean Corp Hgb Conc 31.2 g/gl (32-36); Mean Corpuscular Hgb 28.9 pg (27.0-32.0); Mean Corpuscular Volume 92.6 fL (81-99); Mean Platelet Vol. 9.7 fl (6.2-12.0); Monocyte# 0.64 X10^3/uL; Monocyte% 6.4 % (0-10); Neutrophil # 8.44 X10^3/uL (2.7-7.7); Neutrophil % 83.9 % (47-70); Platelet Count 158 K/mm3 (150-450); RBC Distribution Width CV 14.2 % (11.6-14.6); RBC Distribution Width SD 47.1 fl (35.1-43.9); Red Blood Count 3.94 M/mm3 (4.2-5.4); White Blood Count 10.1 K/mm3 (4.4-11.0)
[2018-07-28 05:08] LABS: POSITIVE COUNT NO; POSITIVE DIFFERENTIAL NO; POSITIVE MORPHOLOGY NO
[2018-07-28 05:14] LABS: Anion Gap 9 (5-15); BUN 43 mg/dL (7-18); BUN/Creat Ratio 11.6 RATIO (10-20); Calcium,Total 7.1 mg/dL (8.5-10.1); Chloride 106 mmol/L (98-107); Creatinine, Serum 3.71 mg/dL (0.55-1.02); EST Glomerular Filtration Rate 13 mL/min (>60); Est Glom Filt Rate - Afr Amer 16 mL/min (>60); Glucose 128 mg/dL (74-106); Potassium 5.6 mmol/L (3.5-5.1); Sodium Level 138 mmol/L (136-145)
[2018-07-28 05:37] LABS: AST(SGOT) 13013 U/L (15-37); Alanine Aminotransfer ALT/SGPT 5681 U/L (13-56); Alkaline Phosphatase 170 U/L (45-117); Bilirubin, Direct 0.67 mg/dL (0.00-0.30)
--- NOTE | 2018-07-28 06:17 | PCM.PN.INT ---
Subjective: The patient was seen and examined at the bedside this morning. Events from the last 24 hours have been reviewed. The patient is currently afebrile, hemodynamically stable and maintaining appropriate oxygen saturations on 3 L/min via nasal cannula. Due to the malposition in the patient's central line yesterday, a PICC line was placed and the patient central venous catheter was subsequently removed. Unfortunately, the patient's urine output has continued to decrease over the course of the night. Her creatinine is elevated this morning to 3.7. Transaminase levels continue to rise. Consultation was placed to nephrology this morning. A recheck of the patient's troponin this morning revealed that she had increased from 0.504 to 6.170. A consultation was also subsequently placed to cardiology for evaluation. This morning, the patient endorses the presence of a headache along with ongoing abdominal pain. Objective: The patient's most recent lab work, culture data and imaging studies have all been personally reviewed. Respiratory viral panel was negative. Blood and urine cultures are pending. Head CT revealed chronic involutional changes of the brain. Abdominal ultrasound revealed an enlarged fatty liver with mild pericholecystic fluid. Surface echocardiogram from August 2015 revealed mild concentric LVH with an ejection fraction of 45% and moderate global hypokinesis of the LV. General: Alert, Cooperative, No apparent distress HEENT: Atraumatic, PERRLA, Normocephalic Oral: Moist Mucosa Neck: Supple, No Nodes, Trachea Midline Lungs: Normal air movement, No rhonchi, No wheeze, No rales Cardiovascular: Regular rate, Regular Rhythm, Normal S1, Normal S2, No murmurs Abdomen: Soft, Hypoactive Bowel Sounds, - - Tenderness to palpation over lower abdominal quadrants Extremities: No clubbing, No cyanosis, Edema Skin: - - No significant change from previous. Musculoskeletal: No Tenderness to Palpation of Joints or Extremities Lymphatic: No Cervical, Supraclavicular, or Inguinal Adenopathy Neurological: Neuro grossly intact Psych/Mental Status: Flat Affect Vital Signs Temp Pulse Resp BP Pulse Ox 36.2 C L 79 17 135/63 H 97 07/28/18 05:00 07/28/18 05:00 07/28/18 05:00 07/28/18 05:00 07/28/18 05:00 Oxygen Flow Rate (L/min) 3 Oxygen Delivery Method Nasal Cannula Weight: 232 lb 12.93 oz Body Mass Index (BMI) 33.5 Finger Stick Blood Glucose 199 Intake and Output for Last 24 Hours 07/26/18 07/27/18 07/28/18 23:59 23:59 23:59 Intake Total 1464.9 / 1464.9 835.8 / 835.8 Output Total 105 / 105 30 / 30 Balance 1359.9 / 1359.9 805.8 / 805.8 Labs (Last 48 Hours) 07/27/18 07/27/18 07/27/18 10:30 10:30 10:30 WBC 14.5 H RBC 4.16 L Hgb 12.0 Hct 38.5 MCV 92.5 MCH 28.8 MCHC 31.2 L RDW 14.6 RDW Differential 48.7 H Plt Count 223 MPV 10.1 Immature Gran % (Auto) 0.400 Neut % (Auto) 86.8 H Lymph % (Auto) 3.9 L [place] % (Auto) 8.8 Eos % (Auto) 0.0 Baso % (Auto) 0.1 Absolute Neuts (auto) 12.6 H Absolute Lymphs (auto) 0.56 L Total Counted Not Reportable Differential Comment COMMENT PT 27.7 H INR 2.6 Specimen Type Sample Site pH Bicarbonate Actual POC Total CO2 Base Excess O2 Saturation ABG pCO2 ABG pO2 Shahbaz Test O2 Delivery Device Liter Flow Blood Gas Notified Whom Blood Gas Notified Time Sodium 133 L Potassium 6.3 H* Chloride 99 Carbon Dioxide 23.0 Anion Gap 11 BUN 33 H Creatinine 2.94 H Estim Creat Clear Calc 19.94 Est GFR (MDRD) Af Amer 21 L Est GFR (MDRD) Non-Af 17 L BUN/Creatinine Ratio 11.2 Glucose 166 H Lactic Acid Calcium 7.6 L Total Bilirubin 2.30 H Direct Bilirubin GGT AST 90883 H ALT 4541 H Alkaline Phosphatase 150 H Ammonia Troponin I 0.504 H Total Protein 6.6 Albumin 3.2 Globulin 3.4 Albumin/Globulin Ratio 0.9 Lipase 81 Urine Color Urine Clarity Urine pH Ur Specific [place] Urine Protein Urine Glucose (UA) Urine Ketones Urine Occult Blood Urine Nitrite Urine Bilirubin Urine Urobilinogen Ur Leukocyte Esterase Urine RBC Urine WBC Ur Squamous Epith Cells Amorphous Sediment Urine Bacteria Urine Mucus Urine Opiates Screen Urine Methadone Screen Acetaminophen Ur Barbiturates Screen Ur Phencyclidine Scrn Ur Amphetamines Screen U Methamphetamin-MDMA U Benzodiazepines Scrn Urine Cocaine Screen U Cannabinoids Screen Ur Drug Screen Comment Ethyl Alcohol Acetone Level Hepatitis A IgM Ab Hep Bs Antigen Hep B Core IgM Ab Hepatitis C Ab (EIA) POC Glucose 07/27/18 07/27/18 07/27/18 10:30 10:30 10:30 WBC RBC Hgb Hct MCV MCH MCHC RDW RDW Differential Plt Count MPV Immature Gran % (Auto) Neut % (Auto) Lymph % (Auto) [place] % (Auto) Eos % (Auto) Baso % (Auto) Absolute Neuts (auto) Absolute Lymphs (auto) Total Counted Differential Comment PT INR Specimen Type Sample Site pH Bicarbonate Actual POC Total CO2 Base Excess O2 Saturation ABG pCO2 ABG pO2 Shahbaz Test O2 Delivery Device Liter Flow Blood Gas Notified Whom Blood Gas Notified Time Sodium Potassium Chloride Carbon Dioxide Anion Gap BUN Creatinine Estim Creat Clear Calc Est GFR (MDRD) Af Amer Est GFR (MDRD) Non-Af BUN/Creatinine Ratio Glucose Lactic Acid 4.5 H* Calcium Total Bilirubin Direct Bilirubin GGT AST ALT Alkaline Phosphatase Ammonia Troponin I Total Protein Albumin Globulin Albumin/Globulin Ratio Lipase Urine Color Urine Clarity Urine pH Ur Specific [place] Urine Protein Urine Glucose (UA) Urine Ketones Urine Occult Blood Urine Nitrite Urine Bilirubin Urine Urobilinogen Ur Leukocyte Esterase Urine RBC Urine WBC Ur Squamous Epith Cells Amorphous Sediment Urine Bacteria Urine Mucus Urine Opiates Screen Urine Methadone Screen Acetaminophen Ur Barbiturates Screen Ur Phencyclidine Scrn Ur Amphetamines Screen U Methamphetamin-MDMA U Benzodiazepines Scrn Urine Cocaine Screen U Cannabinoids Screen Ur Drug Screen Comment Ethyl Alcohol 11.0 Acetone Level NEGATIVE Hepatitis A IgM Ab Hep Bs Antigen Hep B Core IgM Ab Hepatitis C Ab (EIA) POC Glucose 07/27/18 07/27/18 07/27/18 10:51 11:27 12:04 WBC RBC Hgb Hct MCV MCH MCHC RDW RDW Differential Plt Count MPV Immature Gran % (Auto) Neut % (Auto) Lymph % (Auto) [place] % (Auto) Eos % (Auto) Baso % (Auto) Absolute Neuts (auto) Absolute Lymphs (auto) Total Counted Differential Comment PT INR Specimen Type ART Sample Site R Radial pH 7.29 L Bicarbonate Actual 20.6 L POC Total CO2 22 Base Excess -6 L O2 Saturation 94 L ABG pCO2 42.5 ABG pO2 79 Shahbaz Test POS O2 Delivery Device Nasal Can Liter Flow 4.0 Blood Gas Notified Whom ED Blood Gas Notified Time 1126 Sodium Potassium Chloride Carbon Dioxide Anion Gap BUN Creatinine Estim Creat Clear Calc Est GFR (MDRD) Af Amer Est GFR (MDRD) Non-Af BUN/Creatinine Ratio Glucose Lactic Acid Calcium Total Bilirubin Direct Bilirubin GGT AST ALT Alkaline Phosphatase Ammonia Troponin I Total Protein Albumin Globulin Albumin/Globulin Ratio Lipase Urine Color Yellow Urine Clarity Sl. Cloudy Urine pH 5.0 Ur Specific [place] 1.025 Urine Protein 100 H Urine Glucose (UA) Normal Urine Ketones 5 H Urine Occult Blood 250 H Urine Nitrite Negative Urine Bilirubin 3 H Urine Urobilinogen 4 H Ur Leukocyte Esterase 100 H Urine RBC 25-50 SEEN Urine WBC 10-25 SEEN Ur Squamous Epith Cells 0-5 SEEN Amorphous Sediment 2+ Urine Bacteria 1+ Urine Mucus 0 SEEN Urine Opiates Screen Urine Methadone Screen Acetaminophen Ur Barbiturates Screen Ur Phencyclidine Scrn Ur Amphetamines Screen U Methamphetamin-MDMA U Benzodiazepines Scrn Urine Cocaine Screen U Cannabinoids Screen Ur Drug Screen Comment Ethyl Alcohol Acetone Level Hepatitis A IgM Ab Hep Bs Antigen Hep B Core IgM Ab Hepatitis C Ab (EIA) POC Glucose 191 H 07/27/18 07/27/18 07/27/18 13:45 13:45 13:45 WBC RBC Hgb Hct MCV MCH MCHC RDW RDW Differential Plt Count MPV Immature Gran % (Auto) Neut % (Auto) Lymph % (Auto) [place] % (Auto) Eos % (Auto) Baso % (Auto) Absolute Neuts (auto) Absolute Lymphs (auto) Total Counted Differential Comment PT INR Specimen Type Sample Site pH Bicarbonate Actual POC Total CO2 Base Excess O2 Saturation ABG pCO2 ABG pO2 Shahbaz Test O2 Delivery Device Liter Flow Blood Gas Notified Whom Blood Gas Notified Time Sodium Potassium Chloride Carbon Dioxide Anion Gap BUN Creatinine Estim Creat Clear Calc Est GFR (MDRD) Af Amer Est GFR (MDRD) Non-Af BUN/Creatinine Ratio Glucose Lactic Acid Calcium Total Bilirubin Direct Bilirubin GGT AST ALT Alkaline Phosphatase Ammonia 51.0 H Troponin I Total Protein Albumin Globulin Albumin/Globulin Ratio Lipase Urine Color Urine Clarity Urine pH Ur Specific [place] Urine Protein Urine Glucose (UA) Urine Ketones Urine Occult Blood Urine Nitrite Urine Bilirubin Urine Urobilinogen Ur Leukocyte Esterase Urine RBC Urine WBC Ur Squamous Epith Cells Amorphous Sediment Urine Bacteria Urine Mucus Urine Opiates Screen Urine Methadone Screen Acetaminophen < 2.0 L Ur Barbiturates Screen Ur Phencyclidine Scrn Ur Amphetamines Screen U Methamphetamin-MDMA U Benzodiazepines Scrn Urine Cocaine Screen U Cannabinoids Screen Ur Drug Screen Comment Ethyl Alcohol Acetone Level Hepatitis A IgM Ab Pending Hep Bs Antigen Pending Hep B Core IgM Ab Pending Hepatitis C Ab (EIA) Pending POC Glucose 07/27/18 07/27/18 07/27/18 13:45 13:45 14:30 WBC RBC Hgb Hct MCV MCH MCHC RDW RDW Differential Plt Count MPV Immature Gran % (Auto) Neut % (Auto) Lymph % (Auto) [place] % (Auto) Eos % (Auto) Baso % (Auto) Absolute Neuts (auto) Absolute Lymphs (auto) Total Counted Differential Comment PT INR Specimen Type Sample Site pH Bicarbonate Actual POC Total CO2 Base Excess O2 Saturation ABG pCO2 ABG pO2 Shahbaz Test O2 Delivery Device Liter Flow Blood Gas Notified Whom Blood Gas Notified Time Sodium 135 L Potassium 5.5 H Chloride 104 Carbon Dioxide 22.0 Anion Gap 9 BUN 34 H Creatinine 2.80 H Estim Creat Clear Calc 20.93 Est GFR (MDRD) Af Amer 22 L Est GFR (MDRD) Non-Af 18 L BUN/Creatinine Ratio 12.1 Glucose 221 H Lactic Acid Calcium 6.6 L Total Bilirubin Direct Bilirubin GGT 69 H AST ALT Alkaline Phosphatase Ammonia Troponin I Total Protein Albumin Globulin Albumin/Globulin Ratio Lipase Urine Color Urine Clarity Urine pH Ur Specific [place] Urine Protein Urine Glucose (UA) Urine Ketones Urine Occult Blood Urine Nitrite Urine Bilirubin Urine Urobilinogen Ur Leukocyte Esterase Urine RBC Urine WBC Ur Squamous Epith Cells Amorphous Sediment Urine Bacteria Urine Mucus Urine Opiates Screen POSITIVE H Urine Methadone Screen NEGATIVE Acetaminophen Ur Barbiturates Screen NEGATIVE Ur Phencyclidine Scrn NEGATIVE Ur Amphetamines Screen NEGATIVE U Methamphetamin-MDMA NEGATIVE U Benzodiazepines Scrn NEGATIVE Urine Cocaine Screen NEGATIVE U Cannabinoids Screen POSITIVE H Ur Drug Screen Comment Ethyl Alcohol Acetone Level Hepatitis A IgM Ab Hep Bs Antigen Hep B Core IgM Ab Hepatitis C Ab (EIA) POC Glucose 07/27/18 07/27/18 07/27/18 15:55 17:10 21:16 WBC RBC Hgb Hct MCV MCH MCHC RDW RDW Differential Plt Count MPV Immature Gran % (Auto) Neut % (Auto) Lymph % (Auto) [place] % (Auto) Eos % (Auto) Baso % (Auto) Absolute Neuts (auto) Absolute Lymphs (auto) Total Counted Differential Comment PT INR Specimen Type Sample Site pH Bicarbonate Actual POC Total CO2 Base Excess O2 Saturation ABG pCO2 ABG pO2 Shahbaz Test O2 Delivery Device Liter Flow Blood Gas Notified Whom Blood Gas Notified Time Sodium Potassium Chloride Carbon Dioxide Anion Gap BUN Creatinine Estim Creat Clear Calc Est GFR (MDRD) Af Amer Est GFR (MDRD) Non-Af BUN/Creatinine Ratio Glucose Lactic Acid 2.6 H Calcium Total Bilirubin Direct Bilirubin GGT AST ALT Alkaline Phosphatase Ammonia Troponin I Total Protein Albumin Globulin Albumin/Globulin Ratio Lipase Urine Color Urine Clarity Urine pH Ur Specific [place] Urine Protein Urine Glucose (UA) Urine Ketones Urine Occult Blood Urine Nitrite Urine Bilirubin Urine Urobilinogen Ur Leukocyte Esterase Urine RBC Urine WBC Ur Squamous Epith Cells Amorphous Sediment Urine Bacteria Urine Mucus Urine Opiates Screen Urine Methadone Screen Acetaminophen Ur Barbiturates Screen Ur Phencyclidine Scrn Ur Amphetamines Screen U Methamphetamin-MDMA U Benzodiazepines Scrn Urine Cocaine Screen U Cannabinoids Screen Ur Drug Screen Comment Ethyl Alcohol Acetone Level Hepatitis A IgM Ab Hep Bs Antigen Hep B Core IgM Ab Hepatitis C Ab (EIA) POC Glucose 205 H 134 H 07/28/18 07/28/18 07/28/18 04:30 04:30 05:00 WBC 10.1 RBC 3.94 L Hgb 11.4 L Hct 36.5 L MCV 92.6 MCH 28.9 MCHC 31.2 L RDW 14.2 RDW Differential 47.1 H Plt Count 158 MPV 9.7 Immature Gran % (Auto) 0.200 Neut % (Auto) 83.9 H Lymph % (Auto) 9.1 L [place] % (Auto) 6.4 Eos % (Auto) 0.3 Baso % (Auto) 0.1 Absolute Neuts (auto) 8.4 H Absolute Lymphs (auto) 0.91 Total Counted Not Reportable Differential Comment PT INR Specimen Type Sample Site pH Bicarbonate Actual POC Total CO2 Base Excess O2 Saturation ABG pCO2 ABG pO2 Shahbaz Test O2 Delivery Device Liter Flow Blood Gas Notified Whom Blood Gas Notified Time Sodium 138 Potassium 5.6 H Chloride 106 Carbon Dioxide 23.0 Anion Gap 9 BUN 43 H Creatinine 3.71 H Estim Creat Clear Calc 15.80 Est GFR (MDRD) Af Amer 16 L Est GFR (MDRD) Non-Af 13 L BUN/Creatinine Ratio 11.6 Glucose 128 H Lactic Acid Calcium 7.1 L Total Bilirubin 1.30 H Direct Bilirubin 0.67 H GGT AST 68779 H ALT 5681 H Alkaline Phosphatase 170 H Ammonia Troponin I Total Protein 6.0 L Albumin 3.0 L Globulin 3.0 Albumin/Globulin Ratio Lipase Urine Color Urine Clarity Urine pH Ur Specific [place] Urine Protein Urine Glucose (UA) Urine Ketones Urine Occult Blood Urine Nitrite Urine Bilirubin Urine Urobilinogen Ur Leukocyte Esterase Urine RBC Urine WBC Ur Squamous Epith Cells Amorphous Sediment Urine Bacteria Urine Mucus Urine Opiates Screen Urine Methadone Screen Acetaminophen Ur Barbiturates Screen Ur Phencyclidine Scrn Ur Amphetamines Screen U Methamphetamin-MDMA U Benzodiazepines Scrn Urine Cocaine Screen U Cannabinoids Screen Ur Drug Screen Comment Ethyl Alcohol Acetone Level Hepatitis A IgM Ab Hep Bs Antigen Hep B Core IgM Ab Hepatitis C Ab (EIA) POC Glucose Microbiology 07/27/18 14:55 Mucosa - Nasopharyngeal Respiratory Panel (PCR) - Final Clinical Impression(s) from Imaging Studies Brain CT 07/27/18 09:54 IMPRESSION: Chronic involutional changes of the brain. Electronically Signed: Doug Brown, at 11:41 EDT , Service support , Chest X-Ray 07/27/18 10:29 IMPRESSION: The tip of the right subclavian catheter is in the right internal jugular vein. Cardiomegaly. The lungs are clear. Electronically Signed: Doug Brown, at 12:27 EDT , Service support , Abdomen Ultrasound 07/27/18 14:45 IMPRESSION: Enlarged fatty liver. Mild pericholecystic fluid. Electronically Signed: Josse Montenegro DO at 23:53 EDT Tel [phone], Service support , Medical Necessity - Tobacco Use Smoking Status: Current every day smoker Tobacco Use: Cigarettes Assessment/Plan All Active Problems Frequent falls (Acute) Shock, unspecified (Acute) GI bleed (Acute) Acute liver failure (Acute) Coagulopathy (Acute) UTI (urinary tract infection) (Acute) Hepatic encephalopathy (Acute) Acute renal insufficiency (Acute) Acute renal failure (Acute) Lightheadedness (Acute) Unsteady gait (Acute) Headache (Acute) Chest pain (Acute) Weakness of both arms (Resolved) Numbness and tingling of right face (Resolved) Difficulty speaking (Resolved) NSTEMI (non-ST elevated myocardial infarction) (Resolved) Jaw pain (Resolved) RECOMMENDATIONS: 1. Obtain cardiology and nephrology consultations. 2. Obtain repeat INR this morning. 3. Continue to trend troponins. Obtain echocardiogram. 4. Consider obtaining triple phase CT abdomen to evaluate for patency of hepatic vascular flow. 5. Continue empiric antimicrobials. 6. Stop continuous supplemental IV fluids. 7. Continue PPI therapy. IMPRESSIONS: 1. Acute liver injury/coagulopathy Considerations include toxic effect from medications (drug induced liver injury) with subsequent impaired synthetic function leading to coagulopathy. Additionally, in March 2016, the patient was also noted to have an elevated factor VIII level, which has been shown to be a risk factor for venous thrombosis. Although the patient did have a CT abdomen completed on July 25 in the emergency department, her transaminase levels were noted to be normal at that time. Given her acute rise in transaminase levels, would also have to be concerned about the possibility of hepatic vein thrombosis (Budd-Chiari syndrome). However, at the current time, the patient's renal function would preclude our ability to obtain a CT abdomen with IV contrast. 2. Acute on chronic kidney disease/hyperkalemia Nephrology has been consulted to assist with management. Clinical concern for hepatorenal syndrome. The patient may require hemodialysis. 3. Rectal bleeding The patient reports rectal bleeding over the last 2 weeks. She was initially referred to undergo endoscopic evaluation on an outpatient basis. At the current time, the patient is not actively bleeding. We will continue to monitor. Surgery is following. 4. Encephalopathy Most likely metabolic in nature and related to the patient's underlying impaired hepatic function. 5. Troponin elevation/history of systolic heart failure Cardiology has been consulted to assist with management. Repeat echocardiogram is currently pending. 6. Chronic alcohol and tobacco dependency Monitor for signs of alcohol withdrawal. Nicotine replacement therapy can be considered while the patient is admitted to the hospital. 7. Depression/chronic pain syndrome/hypertension/GERD/hyperlipidemia/obesity Complicates care, management, recovery and prognosis. Continue to hold all potential hepatotoxic medications. Continue to hold antihypertensives, given acute kidney injury. This note was generated with [employer] dictation software. It may contain incorrect words, spelling, and punctuation that were not noted in checking the note before signing. Code Visit Inpatient E&M: 72193 Subs Hosp L3
--- NOTE | 2018-07-28 06:21 | ECHOCS_ITS ---
Reason For Study: Dyspnea/SOB Procedure This was a 2D Doppler, Color Flow transthoracic echocardiogram. The study was technically difficult. Contrast injection was performed. Verbal permission to use Definity with increased pressures given by . Exam performed portable in ICU/CCU. Left Ventricle Normal LV size. Mild segmental systolic dysfunction (see wall motion). The estimated ejection fraction is 45 %. There is evidence of diastolic dysfunction. Basal inferoseptal: Hypokinetic. Mid- Lateral : Hypokinetic. Mid-inferoseptal : Hypokinetic. Mid-anteroseptal : Hypokinetic. Lateral [place] : Hypokinetic. Septal [place] : Hypokinetic. Right Ventricle Normal RV size. Normal systolic function. Atria The left atrium is moderately enlarged. The right atrium is mildly enlarged. No doppler evidence for ASD. Mitral Valve There is mild mitral annular calcification. Mild diffuse mitral valve thickening. Mild mitral valve stenosis. Mild (1+) mitral valve insufficiency. Tricuspid Valve Normal tricuspid valve. Mild tricuspid valve insufficiency. Right ventricular systolic pressure estimated to be 71 mmHg. Aortic Valve Trisinus/trileaflet aortic valve. Mild focal aortic valve thickening. Trivial aortic valve insufficiency. Pulmonic Valve The pulmonic valve is not well visualized. Trivial pulmonic valve insufficiency. Great Vessels Normal sized aortic root. Pericardium/Pleural Trivial pericardial effusion. There are no echocardiographic indications of cardiac tamponade. Medication Diluted definity 7ml given slow IV push to enhance endocardial definition. MMode/2D Measurements & Calculations LVIDd: 4.2 cm IVSd: 1.3 cm Ao root diam: 2.5 cm LVIDs: 3.3 cm LVPWd: 1.8 cm RVDd: 3.8 cm FS: 23.3 % LAV(MOD-bp): 95.9 ml LA A4 area: 27.1 cm2 RA A4 area: 24.5 cm2 LAV(MOD-bp) Indexed: 43.6 ml/m2 LAV(MOD-sp2): 89.0 ml LAV(MOD-sp4): 90.4 ml Time Measurements MV dec time: 0.22 sec Doppler Measurements & Calculations MV E max zachariah: 77.2 cm/sec Lat Peak E' Zachariah: 4.9 cm/sec Med Peak E' Zachariah: 5.0 cm/sec MV A max zachariah: 122.9 cm/sec E/E' lat: 15.7 E/E' med: 15.3 MV E/A: 0.63 MV V2 max: 153.0 cm/sec MV P1/2t max zachariah: 105.9 cm/sec Ao V2 max: 155.3 cm/sec MV max P.4 mmHg MV P1/2t: 83.2 msec Ao max P.6 mmHg MV V2 mean: 95.1 cm/sec MV dec slope: 372.8 cm/sec2 Ao V2 mean: 94.6 cm/sec MV mean P.1 mmHg Ao mean P.2 mmHg MV V2 VTI: 35.6 cm MVA(P1/2t): 2.6 cm2 Ao V2 VTI: 23.3 cm LV V1 max: 110.9 cm/sec MR max zachariah: 587.2 cm/sec PA V2 max: 113.4 cm/sec LV V1 max P.9 mmHg MR max P.9 mmHg LV V1 mean P.2 mmHg LV V1 mean: 67.0 cm/sec LV V1 VTI: 20.0 cm TR max zachariah: 373.9 cm/sec TR max P.9 mmHg Interpretation Summary The study was technically difficult. Contrast injection was performed. Mild segmental systolic dysfunction (see wall motion). The estimated ejection fraction is 45 %. The left atrium is moderately enlarged. The right atrium is mildly enlarged. There is mild mitral annular calcification. Mild diffuse mitral valve thickening. Mild mitral valve stenosis. Mild (1+) mitral valve insufficiency. Mild tricuspid valve insufficiency. Mild focal aortic valve thickening. Trivial aortic valve insufficiency. Trivial pulmonic valve insufficiency. Trivial pericardial effusion. There are no echocardiographic indications of cardiac tamponade. Right ventricular systolic pressure estimated to be 71 mmHg c/w pulmonary hypertension. There is evidence of diastolic dysfunction. Ordering Physician: Corey Hollis D.O. Referring Physician: Crystal Earl M.D. Performed By: Vidal Quintero RCS
--- NOTE | 2018-07-28 06:22 | PN_ITS ---
Subjective: The patient was seen and examined at the bedside this morning. Events from the last 24 hours have been reviewed. The patient is currently afebrile, hemodynamically stable and maintaining appropriate oxygen saturations on 3 L/min via nasal cannula. Due to the malposition in the patient's central line yesterday, a PICC line was placed and the patient central venous catheter was subsequently removed. Unfortunately, the patient's urine output has continued to decrease over the course of the night. Her creatinine is elevated this morning to 3.7. Transaminase levels continue to rise. Consultation was placed to nephrology this morning. A recheck of the patient's troponin this morning revealed that she had increased from 0.504 to 6.170. A consultation was also subsequently placed to cardiology for evaluation. This morning, the patient endorses the presence of a headache along with ongoing abdominal pain. Objective: The patient's most recent lab work, culture data and imaging studies have all been personally reviewed. Respiratory viral panel was negative. Blood and urine cultures are pending. Head CT revealed chronic involutional changes of the brain. Abdominal ultrasound revealed an enlarged fatty liver with mild pericholecystic fluid. Surface echocardiogram from August 2015 revealed mild concentric LVH with an ejection fraction of 45% and moderate global hypokinesis of the LV. General: Alert, Cooperative, No apparent distress HEENT: Atraumatic, PERRLA, Normocephalic Oral: Moist Mucosa Neck: Supple, No Nodes, Trachea Midline Lungs: Normal air movement, No rhonchi, No wheeze, No rales Cardiovascular: Regular rate, Regular Rhythm, Normal S1, Normal S2, No murmurs Abdomen: Soft, Hypoactive Bowel Sounds, - - Tenderness to palpation over lower abdominal quadrants Extremities: No clubbing, No cyanosis, Edema Skin: - - No significant change from previous. Musculoskeletal: No Tenderness to Palpation of Joints or Extremities Lymphatic: No Cervical, Supraclavicular, or Inguinal Adenopathy Neurological: Neuro grossly intact Psych/Mental Status: Flat Affect Vital Signs Temp Pulse Resp BP Pulse Ox 36.2 C L 79 17 135/63 H 97 07/28/18 05:00 07/28/18 05:00 07/28/18 05:00 07/28/18 05:00 07/28/18 05:00 Oxygen Flow Rate (L/min) 3 Oxygen Delivery Method Nasal Cannula Weight: 232 lb 12.93 oz Body Mass Index (BMI) 33.5 Finger Stick Blood Glucose 199 Intake and Output for Last 24 Hours 07/26/18 07/27/18 07/28/18 23:59 23:59 23:59 Intake Total 1464.9 / 1464.9 835.8 / 835.8 Output Total 105 / 105 30 / 30 Balance 1359.9 / 1359.9 805.8 / 805.8 Labs (Last 48 Hours) 07/27/18 07/27/18 07/27/18 10:30 10:30 10:30 WBC 14.5 H RBC 4.16 L Hgb 12.0 Hct 38.5 MCV 92.5 MCH 28.8 MCHC 31.2 L RDW 14.6 RDW Differential 48.7 H Plt Count 223 MPV 10.1 Immature Gran % (Auto) 0.400 Neut % (Auto) 86.8 H Lymph % (Auto) 3.9 L [place] % (Auto) 8.8 Eos % (Auto) 0.0 Baso % (Auto) 0.1 Absolute Neuts (auto) 12.6 H Absolute Lymphs (auto) 0.56 L Total Counted Not Reportable Differential Comment COMMENT PT 27.7 H INR 2.6 Specimen Type Sample Site pH Bicarbonate Actual POC Total CO2 Base Excess O2 Saturation ABG pCO2 ABG pO2 Shahbaz Test O2 Delivery Device Liter Flow Blood Gas Notified Whom Blood Gas Notified Time Sodium 133 L Potassium 6.3 H* Chloride 99 Carbon Dioxide 23.0 Anion Gap 11 BUN 33 H Creatinine 2.94 H Estim Creat Clear Calc 19.94 Est GFR (MDRD) Af Amer 21 L Est GFR (MDRD) Non-Af 17 L BUN/Creatinine Ratio 11.2 Glucose 166 H Lactic Acid Calcium 7.6 L Total Bilirubin 2.30 H Direct Bilirubin GGT AST 76764 H ALT 4541 H Alkaline Phosphatase 150 H Ammonia Troponin I 0.504 H Total Protein 6.6 Albumin 3.2 Globulin 3.4 Albumin/Globulin Ratio 0.9 Lipase 81 Urine Color Urine Clarity Urine pH Ur Specific [place] Urine Protein Urine Glucose (UA) Urine Ketones Urine Occult Blood Urine Nitrite Urine Bilirubin Urine Urobilinogen Ur Leukocyte Esterase Urine RBC Urine WBC Ur Squamous Epith Cells Amorphous Sediment Urine Bacteria Urine Mucus Urine Opiates Screen Urine Methadone Screen Acetaminophen Ur Barbiturates Screen Ur Phencyclidine Scrn Ur Amphetamines Screen U Methamphetamin-MDMA U Benzodiazepines Scrn Urine Cocaine Screen U Cannabinoids Screen Ur Drug Screen Comment Ethyl Alcohol Acetone Level Hepatitis A IgM Ab Hep Bs Antigen Hep B Core IgM Ab Hepatitis C Ab (EIA) POC Glucose 07/27/18 07/27/18 07/27/18 10:30 10:30 10:30 WBC RBC Hgb Hct MCV MCH MCHC RDW RDW Differential Plt Count MPV Immature Gran % (Auto) Neut % (Auto) Lymph % (Auto) [place] % (Auto) Eos % (Auto) Baso % (Auto) Absolute Neuts (auto) Absolute Lymphs (auto) Total Counted Differential Comment PT INR Specimen Type Sample Site pH Bicarbonate Actual POC Total CO2 Base Excess O2 Saturation ABG pCO2 ABG pO2 Shahbaz Test O2 Delivery Device Liter Flow Blood Gas Notified Whom Blood Gas Notified Time Sodium Potassium Chloride Carbon Dioxide Anion Gap BUN Creatinine Estim Creat Clear Calc Est GFR (MDRD) Af Amer Est GFR (MDRD) Non-Af BUN/Creatinine Ratio Glucose Lactic Acid 4.5 H* Calcium Total Bilirubin Direct Bilirubin GGT AST ALT Alkaline Phosphatase Ammonia Troponin I Total Protein Albumin Globulin Albumin/Globulin Ratio Lipase Urine Color Urine Clarity Urine pH Ur Specific [place] Urine Protein Urine Glucose (UA) Urine Ketones Urine Occult Blood Urine Nitrite Urine Bilirubin Urine Urobilinogen Ur Leukocyte Esterase Urine RBC Urine WBC Ur Squamous Epith Cells Amorphous Sediment Urine Bacteria Urine Mucus Urine Opiates Screen Urine Methadone Screen Acetaminophen Ur Barbiturates Screen Ur Phencyclidine Scrn Ur Amphetamines Screen U Methamphetamin-MDMA U Benzodiazepines Scrn Urine Cocaine Screen U Cannabinoids Screen Ur Drug Screen Comment Ethyl Alcohol 11.0 Acetone Level NEGATIVE Hepatitis A IgM Ab Hep Bs Antigen Hep B Core IgM Ab Hepatitis C Ab (EIA) POC Glucose 07/27/18 07/27/18 07/27/18 10:51 11:27 12:04 WBC RBC Hgb Hct MCV MCH MCHC RDW RDW Differential Plt Count MPV Immature Gran % (Auto) Neut % (Auto) Lymph % (Auto) [place] % (Auto) Eos % (Auto) Baso % (Auto) Absolute Neuts (auto) Absolute Lymphs (auto) Total Counted Differential Comment PT INR Specimen Type ART Sample Site R Radial pH 7.29 L Bicarbonate Actual 20.6 L POC Total CO2 22 Base Excess -6 L O2 Saturation 94 L ABG pCO2 42.5 ABG pO2 79 Shahbaz Test POS O2 Delivery Device Nasal Can Liter Flow 4.0 Blood Gas Notified Whom ED Blood Gas Notified Time 1126 Sodium Potassium Chloride Carbon Dioxide Anion Gap BUN Creatinine Estim Creat Clear Calc Est GFR (MDRD) Af Amer Est GFR (MDRD) Non-Af BUN/Creatinine Ratio Glucose Lactic Acid Calcium Total Bilirubin Direct Bilirubin GGT AST ALT Alkaline Phosphatase Ammonia Troponin I Total Protein Albumin Globulin Albumin/Globulin Ratio Lipase Urine Color Yellow Urine Clarity Sl. Cloudy Urine pH 5.0 Ur Specific [place] 1.025 Urine Protein 100 H Urine Glucose (UA) Normal Urine Ketones 5 H Urine Occult Blood 250 H Urine Nitrite Negative Urine Bilirubin 3 H Urine Urobilinogen 4 H Ur Leukocyte Esterase 100 H Urine RBC 25-50 SEEN Urine WBC 10-25 SEEN Ur Squamous Epith Cells 0-5 SEEN Amorphous Sediment 2+ Urine Bacteria 1+ Urine Mucus 0 SEEN Urine Opiates Screen Urine Methadone Screen Acetaminophen Ur Barbiturates Screen Ur Phencyclidine Scrn Ur Amphetamines Screen U Methamphetamin-MDMA U Benzodiazepines Scrn Urine Cocaine Screen U Cannabinoids Screen Ur Drug Screen Comment Ethyl Alcohol Acetone Level Hepatitis A IgM Ab Hep Bs Antigen Hep B Core IgM Ab Hepatitis C Ab (EIA) POC Glucose 191 H 07/27/18 07/27/18 07/27/18 13:45 13:45 13:45 WBC RBC Hgb Hct MCV MCH MCHC RDW RDW Differential Plt Count MPV Immature Gran % (Auto) Neut % (Auto) Lymph % (Auto) [place] % (Auto) Eos % (Auto) Baso % (Auto) Absolute Neuts (auto) Absolute Lymphs (auto) Total Counted Differential Comment PT INR Specimen Type Sample Site pH Bicarbonate Actual POC Total CO2 Base Excess O2 Saturation ABG pCO2 ABG pO2 Shahbaz Test O2 Delivery Device Liter Flow Blood Gas Notified Whom Blood Gas Notified Time Sodium Potassium Chloride Carbon Dioxide Anion Gap BUN Creatinine Estim Creat Clear Calc Est GFR (MDRD) Af Amer Est GFR (MDRD) Non-Af BUN/Creatinine Ratio Glucose Lactic Acid Calcium Total Bilirubin Direct Bilirubin GGT AST ALT Alkaline Phosphatase Ammonia 51.0 H Troponin I Total Protein Albumin Globulin Albumin/Globulin Ratio Lipase Urine Color Urine Clarity Urine pH Ur Specific [place] Urine Protein Urine Glucose (UA) Urine Ketones Urine Occult Blood Urine Nitrite Urine Bilirubin Urine Urobilinogen Ur Leukocyte Esterase Urine RBC Urine WBC Ur Squamous Epith Cells Amorphous Sediment Urine Bacteria Urine Mucus Urine Opiates Screen Urine Methadone Screen Acetaminophen < 2.0 L Ur Barbiturates Screen Ur Phencyclidine Scrn Ur Amphetamines Screen U Methamphetamin-MDMA U Benzodiazepines Scrn Urine Cocaine Screen U Cannabinoids Screen Ur Drug Screen Comment Ethyl Alcohol Acetone Level Hepatitis A IgM Ab Pending Hep Bs Antigen Pending Hep B Core IgM Ab Pending Hepatitis C Ab (EIA) Pending POC Glucose 07/27/18 07/27/18 07/27/18 13:45 13:45 14:30 WBC RBC Hgb Hct MCV MCH MCHC RDW RDW Differential Plt Count MPV Immature Gran % (Auto) Neut % (Auto) Lymph % (Auto) [place] % (Auto) Eos % (Auto) Baso % (Auto) Absolute Neuts (auto) Absolute Lymphs (auto) Total Counted Differential Comment PT INR Specimen Type Sample Site pH Bicarbonate Actual POC Total CO2 Base Excess O2 Saturation ABG pCO2 ABG pO2 Shahbaz Test O2 Delivery Device Liter Flow Blood Gas Notified Whom Blood Gas Notified Time Sodium 135 L Potassium 5.5 H Chloride 104 Carbon Dioxide 22.0 Anion Gap 9 BUN 34 H Creatinine 2.80 H Estim Creat Clear Calc 20.93 Est GFR (MDRD) Af Amer 22 L Est GFR (MDRD) Non-Af 18 L BUN/Creatinine Ratio 12.1 Glucose 221 H Lactic Acid Calcium 6.6 L Total Bilirubin Direct Bilirubin GGT 69 H AST ALT Alkaline Phosphatase Ammonia Troponin I Total Protein Albumin Globulin Albumin/Globulin Ratio Lipase Urine Color Urine Clarity Urine pH Ur Specific [place] Urine Protein Urine Glucose (UA) Urine Ketones Urine Occult Blood Urine Nitrite Urine Bilirubin Urine Urobilinogen Ur Leukocyte Esterase Urine RBC Urine WBC Ur Squamous Epith Cells Amorphous Sediment Urine Bacteria Urine Mucus Urine Opiates Screen POSITIVE H Urine Methadone Screen NEGATIVE Acetaminophen Ur Barbiturates Screen NEGATIVE Ur Phencyclidine Scrn NEGATIVE Ur Amphetamines Screen NEGATIVE U Methamphetamin-MDMA NEGATIVE U Benzodiazepines Scrn NEGATIVE Urine Cocaine Screen NEGATIVE U Cannabinoids Screen POSITIVE H Ur Drug Screen Comment Ethyl Alcohol Acetone Level Hepatitis A IgM Ab Hep Bs Antigen Hep B Core IgM Ab Hepatitis C Ab (EIA) POC Glucose 07/27/18 07/27/18 07/27/18 15:55 17:10 21:16 WBC RBC Hgb Hct MCV MCH MCHC RDW RDW Differential Plt Count MPV Immature Gran % (Auto) Neut % (Auto) Lymph % (Auto) [place] % (Auto) Eos % (Auto) Baso % (Auto) Absolute Neuts (auto) Absolute Lymphs (auto) Total Counted Differential Comment PT INR Specimen Type Sample Site pH Bicarbonate Actual POC Total CO2 Base Excess O2 Saturation ABG pCO2 ABG pO2 Shahbaz Test O2 Delivery Device Liter Flow Blood Gas Notified Whom Blood Gas Notified Time Sodium Potassium Chloride Carbon Dioxide Anion Gap BUN Creatinine Estim Creat Clear Calc Est GFR (MDRD) Af Amer Est GFR (MDRD) Non-Af BUN/Creatinine Ratio Glucose Lactic Acid 2.6 H Calcium Total Bilirubin Direct Bilirubin GGT AST ALT Alkaline Phosphatase Ammonia Troponin I Total Protein Albumin Globulin Albumin/Globulin Ratio Lipase Urine Color Urine Clarity Urine pH Ur Specific [place] Urine Protein Urine Glucose (UA) Urine Ketones Urine Occult Blood Urine Nitrite Urine Bilirubin Urine Urobilinogen Ur Leukocyte Esterase Urine RBC Urine WBC Ur Squamous Epith Cells Amorphous Sediment Urine Bacteria Urine Mucus Urine Opiates Screen Urine Methadone Screen Acetaminophen Ur Barbiturates Screen Ur Phencyclidine Scrn Ur Amphetamines Screen U Methamphetamin-MDMA U Benzodiazepines Scrn Urine Cocaine Screen U Cannabinoids Screen Ur Drug Screen Comment Ethyl Alcohol Acetone Level Hepatitis A IgM Ab Hep Bs Antigen Hep B Core IgM Ab Hepatitis C Ab (EIA) POC Glucose 205 H 134 H 07/28/18 07/28/18 07/28/18 04:30 04:30 05:00 WBC 10.1 RBC 3.94 L Hgb 11.4 L Hct 36.5 L MCV 92.6 MCH 28.9 MCHC 31.2 L RDW 14.2 RDW Differential 47.1 H Plt Count 158 MPV 9.7 Immature Gran % (Auto) 0.200 Neut % (Auto) 83.9 H Lymph % (Auto) 9.1 L [place] % (Auto) 6.4 Eos % (Auto) 0.3 Baso % (Auto) 0.1 Absolute Neuts (auto) 8.4 H Absolute Lymphs (auto) 0.91 Total Counted Not Reportable Differential Comment PT INR Specimen Type Sample Site pH Bicarbonate Actual POC Total CO2 Base Excess O2 Saturation ABG pCO2 ABG pO2 Shahbaz Test O2 Delivery Device Liter Flow Blood Gas Notified Whom Blood Gas Notified Time Sodium 138 Potassium 5.6 H Chloride 106 Carbon Dioxide 23.0 Anion Gap 9 BUN 43 H Creatinine 3.71 H Estim Creat Clear Calc 15.80 Est GFR (MDRD) Af Amer 16 L Est GFR (MDRD) Non-Af 13 L BUN/Creatinine Ratio 11.6 Glucose 128 H Lactic Acid Calcium 7.1 L Total Bilirubin 1.30 H Direct Bilirubin 0.67 H GGT AST 94670 H ALT 5681 H Alkaline Phosphatase 170 H Ammonia Troponin I Total Protein 6.0 L Albumin 3.0 L Globulin 3.0 Albumin/Globulin Ratio Lipase Urine Color Urine Clarity Urine pH Ur Specific [place] Urine Protein Urine Glucose (UA) Urine Ketones Urine Occult Blood Urine Nitrite Urine Bilirubin Urine Urobilinogen Ur Leukocyte Esterase Urine RBC Urine WBC Ur Squamous Epith Cells Amorphous Sediment Urine Bacteria Urine Mucus Urine Opiates Screen Urine Methadone Screen Acetaminophen Ur Barbiturates Screen Ur Phencyclidine Scrn Ur Amphetamines Screen U Methamphetamin-MDMA U Benzodiazepines Scrn Urine Cocaine Screen U Cannabinoids Screen Ur Drug Screen Comment Ethyl Alcohol Acetone Level Hepatitis A IgM Ab Hep Bs Antigen Hep B Core IgM Ab Hepatitis C Ab (EIA) POC Glucose Microbiology 07/27/18 14:55 Mucosa - Nasopharyngeal Respiratory Panel (PCR) - Final Clinical Impression(s) from Imaging Studies Brain CT 07/27/18 09:54 IMPRESSION: Chronic involutional changes of the brain. Electronically Signed: Doug Brown, at 11:41 EDT , Service support , Chest X-Ray 07/27/18 10:29 IMPRESSION: The tip of the right subclavian catheter is in the right internal jugular vein. Cardiomegaly. The lungs are clear. Electronically Signed: Doug Brown, at 12:27 EDT , Service support , Abdomen Ultrasound 07/27/18 14:45 IMPRESSION: Enlarged fatty liver. Mild pericholecystic fluid. Electronically Signed: Josse Montenegro DO at 23:53 EDT Tel [phone], Service support , Medical Necessity - Tobacco Use Smoking Status: Current every day smoker Tobacco Use: Cigarettes Assessment/Plan All Active Problems Frequent falls (Acute) Shock, unspecified (Acute) GI bleed (Acute) Acute liver failure (Acute) Coagulopathy (Acute) UTI (urinary tract infection) (Acute) Hepatic encephalopathy (Acute) Acute renal insufficiency (Acute) Acute renal failure (Acute) Lightheadedness (Acute) Unsteady gait (Acute) Headache (Acute) Chest pain (Acute) Weakness of both arms (Resolved) Numbness and tingling of right face (Resolved) Difficulty speaking (Resolved) NSTEMI (non-ST elevated myocardial infarction) (Resolved) Jaw pain (Resolved) RECOMMENDATIONS: 1. Obtain cardiology and nephrology consultations. 2. Obtain repeat INR this morning. 3. Continue to trend troponins. Obtain echocardiogram. 4. Consider obtaining triple phase CT abdomen to evaluate for patency of hepatic vascular flow. 5. Continue empiric antimicrobials. 6. Stop continuous supplemental IV fluids. 7. Continue PPI therapy. IMPRESSIONS: 1. Acute liver injury/coagulopathy Considerations include toxic effect from medications (drug induced liver injury) with subsequent impaired synthetic function leading to coagulopathy. Addit ionally, in March 2016, the patient was also noted to have an elevated factor VIII level, which has been shown to be a risk factor for venous thrombosis. Although the patient did have a CT abdomen completed on July 25 in the emergency department, her transaminase levels were noted to be normal at that time. Given her acute rise in transaminase levels, would also have to be concerned about the possibility of hepatic vein thrombosis (Budd-Chiari syndrome). However, at the current time, the patient's renal function would preclude our ability to obtain a CT abdomen with IV contrast. 2. Acute on chronic kidney disease/hyperkalemia Nephrology has been consulted to assist with management. Clinical concern for hepatorenal syndrome. The patient may require hemodialysis. 3. Rectal bleeding The patient reports rectal bleeding over the last 2 weeks. She was initially referred to undergo endoscopic evaluation on an outpatient basis. At the current time, the patient is not actively bleeding. We will continue to monitor. Surgery is following. 4. Encephalopathy Most likely metabolic in nature and related to the patient's underlying impaired hepatic function. 5. Troponin elevation/history of systolic heart failure Cardiology has been consulted to assist with management. Repeat echocardiogram is currently pending. 6. Chronic alcohol and tobacco dependency Monitor for signs of alcohol withdrawal. Nicotine replacement therapy can be considered while the patient is admitted to the hospital. 7. Depression/chronic pain syndrome/hypertension/GERD/hyperlipidemia/obesity Complicates care, management, recovery and prognosis. Continue to hold all potential hepatotoxic medications. Continue to hold antihypertensives, given acute kidney injury. This note was generated with [employer] dictation software. It may contain incorrect words, spelling, and punctuation that were not noted in checking the note before signing. Code Visit Inpatient E&M: 81557 Subs Hosp L3
[2018-07-28 07:01] LABS: International Normalized Ratio 2.5; Prothrombin Time (Protime)PT. 27.2 SECONDS (11.7-14.9)
[2018-07-28 07:07] LABS: HEPATITIS B SURFACE AG Negative (Negative); Hepatitis A IgM Antibody Negative (Negative); Hepatitis B Core AB IgM Negative (Negative)
[2018-07-28 07:15] LABS: Urine Sodium 55 mmol/L (Not Establ.)
--- NOTE | 2018-07-28 08:24 | PCM.CONS.C ---
Problem List (1) NSTEMI (non-ST elevated myocardial infarction) Status: Resolved (2) Cardiomyopathy Status: Chronic Qualifiers: Cardiomyopathy type: unspecified Qualified Code(s): I42.9 - Cardiomyopathy, unspecified (3) HTN (hypertension) Status: Chronic Qualifiers: Hypertension type: essential hypertension Qualified Code(s): I10 - Essential (primary) hypertension (4) GI bleed Status: Acute (5) Acute liver failure Status: Acute (6) Coagulopathy Status: Acute (7) Acute renal insufficiency Status: Acute Reason for Consult Date of Consultation: 07/28/18 History of Present Illness: The patient is a 63 year old female who has previously been followed by [facility] cardiology for concerns of an underlying cardiomyopathy-previously noted in a [facility] cardiovascular consultation from 03-14-15 to be a non-CAD related cardiomyopathy, however, the patient states that she has subsequently been diagnosed with CAD and has had PCI performed at the [facility] [place], who is referred for evaluation of abnormal cardiac enzymes compatible with a non-ST segment elevation NJ superimposed upon concerns of underlying hypertension, recent GI bleeding, acute hepatic failure, coagulopathy, and acute renal insufficiency. The patient appears to be somewhat unclear as to exactly why she is in the hospital and in the ICU. She apparently recalls feeling somewhat weak. Based upon her medical records it appears that she has had recent emergency department evaluations for concerns of gastrointestinal bleeding. She was established with outpatient general surgery for outpatient endoscopy evaluation. In the interim she returned based upon concerns of weakness. She was found to have multiple medical issues at that time with respect to concerns of an underlying abnormal hepatic transaminase levels, abnormal INR level compatible with coagulopathy, and abnormal renal function compatible with renal insufficiency. She was subsequently placed in the ICU for further evaluation and care. At the present time she appears to deny any acute chest discomfort. She does not complaint of acute shortness of breath or dyspnea. She does not recall having any ongoing lower extremity peripheral pitting edema, however, and on examination there is an element of such. She does not recall any near syncope or syncope. Her laboratory studies have demonstrated increase of her troponin I level to the positive range. Her ECG has demonstrated the findings of underlying sinus rhythm with the appearance of a first-degree AV block with left axis deviation and a nonspecific [id number]. It appears she had a transthoracic echocardiogram on 08-15-15. At that time the left ventricle was reported as demonstrating mild dilatation, moderate global hypokinesis, an LVEF of 45%, and mild concentric LVH. Her left atrium was moderately enlarged. She had a report of mild mitral valve stenosis with a peak gradient of 9 mmHg and a mean gradient of 4 mmHg along with moderate MR. There was trivial TR. She had a negative agitated saline contrast study for interatrial shunt. She had a pharmacologic stress nuclear imaging study performed on 12 04?15. According to report that demonstrated normal myocardial perfusion. Her LVEF at that time by gated SPECT study was 77%. Her [facility] evaluation is unavailable for review. Based upon previous [facility] cardiovascular consultation-has noted above, it was felt that she may have had a cardiomyopathy secondary to microvascular angina, coronary spasm, Takotsubo syndrome, origin of a plaque rupture. It appears at that time there was recommendation for repeat cardiac catheterization. Those results are unavailable for review. [] Past Medical History Allergies/Adverse Reactions: Allergies duloxetine HCl [From Cymbalta] Adverse Reaction (Verified 07/25/18 09:39) Other morphine Adverse Reaction (Verified 07/25/18 09:39) Itching pramipexole di-HCl [From Mirapex] Adverse Reaction (Verified 07/25/18 09:39) Other Sulfa (Sulfonamide Antibiotics) Adverse Reaction (Verified 07/25/18 09:39) Unknown tramadol HCl [From Ultram] Adverse Reaction (Verified 07/25/18 09:39) Itching varenicline [From Chantix] Adverse Reaction (Verified 07/25/18 09:39) Unknown Home Medications: Ambulatory Orders Medication Instructions Recorded Acyclovir [Zovirax] 400 mg PO BID 08/20/13 Amitriptyline HCl [Elavil] 100 - 150 mg PO QHS PRN 08/20/13 Nitroglycerin [Nitrostat] 0.4 mg SL PRN PRN 08/20/13 Oxycodone [Oxyir] 10 mg PO Q6H PRN PRN #40 tablet 09/05/13 Clonazepam [Klonopin] 0.5 mg PO QHS 08/14/15 Clopidogrel Bisulfate [Plavix] 75 mg PO DAILY 08/14/15 Metoprolol Tartrate [Lopressor 25 mg PO BID 08/14/15 (beta codie)] Tizanidine HCl [Zanaflex] 4 mg PO DAILY PRN PRN 08/14/15 Aspirin [Aspirin, Baby] 81 mg PO DAILY@0800 09/08/17 Dicyclomine HCl [Bentyl] 10 mg PO ACHS 09/08/17 Omeprazole 40 mg PO BID 09/08/17 Triamcinolone 0.025% Cream 1 applic TOPICAL BID PRN 09/08/17 [Kenalog] Amlodipine [Norvasc] 5 mg PO DAILY #60 tab 09/09/17 Lisinopril [Zestril] 20 mg PO DAILY #60 tab 09/09/17 Nystatin Powder [Mycostatin Powder] 1 applic TOPICAL 4X/DAY 07/16/18 Polyethylene Glycol 3350 [Miralax] 17 gm PO DAILY 07/16/18 Rosuvastatin Calcium [Crestor] 10 mg PO QHS 07/16/18 Albuterol Inhaler [Ventolin Hfa 2 puff INHALATION Q4H PRN PRN 07/27/18 (SP)] Mupirocin [Bactroban] 1 applic TOPICAL TID 07/27/18 Sertraline HCl [Zoloft] 50 mg PO DAILY 07/27/18 busPIRone [Buspar] 15 mg PO BID 07/27/18 Past Medical History (Chronic Problems): Chronic Problems Cardiomyopathy (Chronic) HTN (hypertension) (Chronic) Tobacco use disorder (Chronic) Esophageal reflux (Chronic) Depressive disorder (Chronic) Back ache (Chronic) Irritable bowel syndrome (IBS) (Chronic) Anxiety disorder (Chronic) Surgical History: noncontributory, - - Uterine suspension, coronary artery stent placement - *Family History Maternal History Items: No pertinent history - Patient was adopted Paternal History Items: No pertinent history - Was adopted Lives: Spouse/ Significant Other Smoking Status: Current every day smoker Tobacco Use: Cigarettes Alcohol: Occasional - Uncertain the amount Review of Systems - Review of Systems General: Reports: Weakness Cardiovascular: Reports: Peripheral Edema Gastrointestinal: Reports: Hematochezia Subjectve: Is a 63-year-old white female who is in the ICU and appears to be resting comfortably at the moment in no acute distress. Objective: Vital Signs Temp Pulse Resp BP Pulse Ox 97.2 F L 82 21 H 148/53 H 96 07/28/18 05:00 07/28/18 06:00 07/28/18 06:00 07/28/18 06:00 07/28/18 06:00 Oxygen Flow Rate (L/min) 3 Oxygen Delivery Method Nasal Cannula Weight: 232 lb 12.93 oz Body Mass Index (BMI) 33.5 Finger Stick Blood Glucose 199 Intake and Output for Last 24 Hours 07/26/18 07/27/18 07/28/18 23:59 23:59 23:59 Intake Total 1464.9 / 1464.9 835.8 / 835.8 Output Total 105 / 105 30 / 30 Balance 1359.9 / 1359.9 805.8 / 805.8 General: Awake, Cooperative, No Acute Distress, Obese HEENT: Atraumatic, Normocephalic, PERRL, EOMI Oral: Moist Mucosa Neck: Supple Lungs: Clear to auscultation Cardiovascular: Regular Rhythm, Normal S1, Normal S2 Vascular: No Carotid Bruits Abdomen: Bowel Sounds Present, Soft Extremities: Mild RLE Edema, Mild LLE Edema Psych/Mental Status: Flat Affect 07/27/18 10:30: WBC 14.5 H, RBC 4.16 L, Hgb 12.0, Hct 38.5, MCV 92.5, MCH 28.8, MCHC 31.2 L, RDW 14.6, RDW Differential 48.7 H, Plt Count 223, MPV 10.1, Immature Gran % (Auto) 0.400, Neut % (Auto) 86.8 H, Lymph % (Auto) 3.9 L, [place] % (Auto) 8.8, Eos % (Auto) 0.0, Baso % (Auto) 0.1, Absolute Neuts (auto) 12.6 H, Total Counted Not Reportable 07/27/18 10:30: PT 27.7 H, INR 2.6 07/27/18 10:30: Sodium 133 L, Potassium 6.3 H*, Chloride 99, Carbon Dioxide 23.0, Anion Gap 11, BUN 33 H, Creatinine 2.94 H, Est GFR (MDRD) Af Amer 21 L, Est GFR (MDRD) Non-Af 17 L, BUN/Creatinine Ratio 11.2, Glucose 166 H, Calcium 7.6 L, Total Bilirubin 2.30 H, Troponin I 0.504 H 07/27/18 10:30: Lactic Acid 4.5 H* 07/27/18 11:27: pH 7.29 L, Bicarbonate Actual 20.6 L, POC Total CO2 22, Base Excess -6 L, O2 Saturation 94 L, ABG pCO2 42.5, ABG pO2 79, Shahbaz Test POS 07/27/18 12:04: Urine Color Yellow, Urine Clarity Sl. Cloudy, Urine pH 5.0, Ur Specific Homer 1.025, Urine Protein 100 H, Urine Glucose (UA) Normal, Urine Ketones 5 H, Urine Occult Blood 250 H, Urine Nitrite Negative, Urine Bilirubin 3 H, Urine Urobilinogen 4 H, Ur Leukocyte Esterase 100 H, Urine RBC 25-50 SEEN, Urine WBC 10-25 SEEN 07/27/18 13:45: Sodium 135 L, Potassium 5.5 H, Chloride 104, Carbon Dioxide 22.0, Anion Gap 9, BUN 34 H, Creatinine 2.80 H, Est GFR (MDRD) Af Amer 22 L, Est GFR (MDRD) Non-Af 18 L, BUN/Creatinine Ratio 12.1, Glucose 221 H, Calcium 6.6 L 07/27/18 15:55: Lactic Acid 2.6 H 07/28/18 04:30: Total Bilirubin 1.30 H, Direct Bilirubin 0.67 H 07/28/18 04:30: Sodium 138, Potassium 5.6 H, Chloride 106, Carbon Dioxide 23.0, Anion Gap 9, BUN 43 H, Creatinine 3.71 H, Est GFR (MDRD) Af Amer 16 L, Est GFR (MDRD) Non-Af 13 L, BUN/Creatinine Ratio 11.6, Glucose 128 H, Calcium 7.1 L 07/28/18 04:30: Troponin I 6.170 H* 07/28/18 05:00: WBC 10.1, RBC 3.94 L, Hgb 11.4 L, Hct 36.5 L, MCV 92.6, MCH 28.9, MCHC 31.2 L, RDW 14.2, RDW Differential 47.1 H, Plt Count 158, MPV 9.7, Immature Gran % (Auto) 0.200, Neut % (Auto) 83.9 H, Lymph % (Auto) 9.1 L, [place] % (Auto) 6.4, Eos % (Auto) 0.3, Baso % (Auto) 0.1, Absolute Neuts (auto) 8.4 H, Total Counted Not Reportable 07/28/18 06:35: PT 27.2 H, INR 2.5 Rhythm: Sinus rhythm EKG: As noted above ECHO: As noted above Stress Test: As noted above CXR: Portable: Cannot exclude increased cardiac silhouette size: Please see official report Assessment/Plan 1. Non-ST segment elevation NJ At the present time the patient has findings compatible with a non-ST segment elevation NJ. It is unclear whether the patient has been diagnosed in the past with underlying CAD and received PCI versus having a non-CAD related cardiovascular diagnosis. It is unclear at this time whether this finding represents true type I acute coronary syndrome versus a type II supply demand mismatch related event which may be secondary to her multiple organ failure events, etc. At the present time an attempt will be made to obtain previous [facility] medical records for continuity of care purposes. In the interim she will continue to be followed. Her cardiac enzymes can be followed as well as her ECG. An echocardiogram has been requested to reassess her left ventricular wall motion and systolic function. She can be treated medically. There is some concern of adding aspirin or antiplatelet agents or anticoagulants based upon her underlying coagulopathy. Nitrates can be used as needed. She is on beta-codie therapy. Lipid-lowering agent such as statins are on hold at this time secondary to her marked hepatic transaminase elevation. She may need to be considered for reevaluation in the cardiac catheterization laboratory. However there would be concern of proceeding in that manner at this time based upon her underlying hepatic failure, coagulopathy, renal failure, etc. If she were needed to pursue with such an event, especially urgent or emergently, these issues would have to be taken into consideration based upon the increased risk in such a procedure including the concern of IV contrast related nephropathy and progressive renal insufficiency/failure. Such a procedure, based upon her risks, may need to be performed at a tertiary care center. . Cardiomyopathy Based on her most recent echocardiogram available for review her LV systolic function appear to be diminished. She does not recall any other studies as an outpatient. Again medical records will be requested for continuity of care purposes. In the meantime she will continue to be followed as noted above. A follow-up echocardiogram has been stated to reassess her left ventricular wall motion and systolic function to assist in her evaluation and care. 3. Hypertension Blood pressures will be followed. Her medications can be adjusted as deemed appropriate. However consideration will have to be given to use medications hopefully can avoid interaction with her hepatic issues/renal issues. 4. GI bleed She has had a history of underlying GI bleed. She has been evaluated for such. She continues with the need for additional evaluation when she is considered stable for such. 5. Hepatic failure He has marked elevation of her hepatic transaminase levels. This may be multifactorial in etiology. She is being evaluated by internal medicine and the critical care medicine staff. She may need further gastrointestinal evaluation by GI/hepatology. This cannot occur here she may need to be transferred to a tertiary care center for such. 6. Coagulopathy Her INR is elevated. This may be secondary to her underlying hepatic insufficiency. Again she will continue evaluation care as noted above. However this does raise concerns about invasive procedures. 7. Renal insufficiency Her creatinine level is declining. She may be developing a hepatorenal syndrome. She is going to be evaluated by nephrology. Overall, from a cardiovascular standpoint, she will continue to be monitored. Her cardiac enzymes and ECG can be followed. An echocardiogram has been requested to assist with her evaluation care. Ideally should be considered for further evaluation significant illness with multiple organ failure and increased risks of such an invasive procedure. Again if this were required. In the meantime as best as possible as described above. He will continue multiple consultation/evaluation by other specialists/subspecialist to assist in her diagnosis and therapy. She may need to be considered for transfer to a tertiary care center for additional evaluation and care that may not necessarily be available at [facility]. Comment: The patient's case has been discussed and reviewed with Dr. Hollis of the critical care medicine staff. This note was generated using a voice recognition system and there may be incorrect words, spelling or punctuation that were not noted when reviewing the office note prior to saving.
--- NOTE | 2018-07-28 08:27 | PCM.PN.HOSP ---
Patient Problems: Active and Suspected Problems Shock, unspecified (Acute) GI bleed (Acute) Acute liver failure (Acute) Coagulopathy (Acute) UTI (urinary tract infection) (Acute) Hepatic encephalopathy (Acute) Subjective: Patient did not had fever or tachycardia. Blood pressure is maintained. Patient feels tired and weak and sleepy. LFTs have worsened. Kidney function deteriorated. INR maintained at 2.5. U tox is positive of opioids and cannabinoids. Tylenol level normal. Vitals/I&O's: Vital Signs Temp Pulse Resp BP Pulse Ox 97.2 F L 82 21 H 148/53 H 96 07/28/18 05:00 07/28/18 06:00 07/28/18 06:00 07/28/18 06:00 07/28/18 06:00 Oxygen Flow Rate (L/min) 3 Oxygen Delivery Method Nasal Cannula Weight: 232 lb 12.93 oz Body Mass Index (BMI) 33.5 Finger Stick Blood Glucose 199 Intake and Output for Last 24 Hours 07/26/18 07/27/18 07/28/18 23:59 23:59 23:59 Intake Total 1464.9 / 1464.9 835.8 / 835.8 Output Total 105 / 105 30 / 30 Balance 1359.9 / 1359.9 805.8 / 805.8 General: Alert, Oriented x3, Cooperative, Lethargic HEENT: Atraumatic, PERRLA, EOMI, Normocephalic Oral: Moist Mucosa Neck: Supple, No JVD, Negative Carotid Bruits Lungs: No rhonchi, No wheeze, Diminished - Is diminished Cardiovascular: Regular rate, Regular Rhythm, Normal S1, Normal S2, No murmurs Abdomen: Bowel Sounds Present, Soft, Non Tender, Non-Distended Extremities: Capillary Refill Less than 3 Seconds, Edema Skin: No rashes, No breakdown Musculoskeletal: Arthritic Changes, Tenderness - Chronic spine tenderness Neurological: Cranial nerves II-XII grossly intact, Neuro grossly intact, - - No tremor/asterixis Psych/Mental Status: Normal Affect, Appropriate Microbiology Past 72 Hours 07/27/18 14:55 Mucosa - Nasopharyngeal Respiratory Panel (PCR) - Final Laboratory Results 07/27/18 10:30: WBC 14.5 H, RBC 4.16 L, Hgb 12.0, Hct 38.5, MCV 92.5, MCH 28.8, MCHC 31.2 L, RDW 14.6, RDW Differential 48.7 H, Plt Count 223, MPV 10.1, Immature Gran % (Auto) 0.400, Neut % (Auto) 86.8 H, Lymph % (Auto) 3.9 L, [place] % (Auto) 8.8, Eos % (Auto) 0.0, Baso % (Auto) 0.1, Absolute Neuts (auto) 12.6 H, Absolute Lymphs (auto) 0.56 L, Total Counted Not Reportable, Differential Comment COMMENT 07/27/18 10:30: PT 27.7 H, INR 2.6 07/27/18 10:30: Sodium 133 L, Potassium 6.3 H*, Chloride 99, Carbon Dioxide 23.0, Anion Gap 11, BUN 33 H, Creatinine 2.94 H, Estim Creat Clear Calc 19.94, Est GFR (MDRD) Af Amer 21 L, Est GFR (MDRD) Non-Af 17 L, BUN/Creatinine Ratio 11.2, Glucose 166 H, Calcium 7.6 L, Total Bilirubin 2.30 H, AST 41621 H, ALT 4541 H, Alkaline Phosphatase 150 H, Troponin I 0.504 H, Total Protein 6.6, Albumin 3.2, Globulin 3.4, Albumin/Globulin Ratio 0.9, Lipase 81 07/27/18 10:30: Ethyl Alcohol 11.0 07/27/18 10:30: Lactic Acid 4.5 H* 07/27/18 10:30: Acetone Level NEGATIVE 07/27/18 10:51: POC Glucose 191 H 07/27/18 11:27: Specimen Type ART, Sample Site R Radial, pH 7.29 L, Bicarbonate Actual 20.6 L, POC Total CO2 22, Base Excess -6 L, O2 Saturation 94 L, ABG pCO2 42.5, ABG pO2 79, Shahbaz Test POS, O2 Delivery Device Nasal Can, Liter Flow 4.0, Blood Gas Notified Whom ED , Blood Gas Notified Time 1126 07/27/18 12:04: Urine Color Yellow, Urine Clarity Sl. Cloudy, Urine pH 5.0, Ur Specific [place] 1.025, Urine Protein 100 H, Urine Glucose (UA) Normal, Urine Ketones 5 H, Urine Occult Blood 250 H, Urine Nitrite Negative, Urine Bilirubin 3 H, Urine Urobilinogen 4 H, Ur Leukocyte Esterase 100 H, Urine RBC 25-50 SEEN, Urine WBC 10-25 SEEN, Ur Squamous Epith Cells 0-5 SEEN, Amorphous Sediment 2+, Urine Bacteria 1+, Urine Mucus 0 SEEN 07/27/18 13:45: Acetaminophen < 2.0 L 07/27/18 13:45: Ammonia 51.0 H 07/27/18 13:45: Hepatitis A IgM Ab Pending, Hep Bs Antigen Pending, Hep B Core IgM Ab Pending, Hepatitis C Ab (EIA) Pending 07/27/18 13:45: GGT 69 H 07/27/18 13:45: Sodium 135 L, Potassium 5.5 H, Chloride 104, Carbon Dioxide 22.0, Anion Gap 9, BUN 34 H, Creatinine 2.80 H, Estim Creat Clear Calc 20.93, Est GFR (MDRD) Af Amer 22 L, Est GFR (MDRD) Non-Af 18 L, BUN/Creatinine Ratio 12.1, Glucose 221 H, Calcium 6.6 L 07/27/18 14:30: Urine Opiates Screen POSITIVE H, Urine Methadone Screen NEGATIVE, Ur Barbiturates Screen NEGATIVE, Ur Phencyclidine Scrn NEGATIVE, Ur Amphetamines Screen NEGATIVE, U Methamphetamin-MDMA NEGATIVE, U Benzodiazepines Scrn NEGATIVE, Urine Cocaine Screen NEGATIVE, U Cannabinoids Screen POSITIVE H, Ur Drug Screen Comment 07/27/18 15:55: Lactic Acid 2.6 H 07/27/18 17:10: POC Glucose 205 H 07/27/18 21:16: POC Glucose 134 H 07/28/18 04:30: Total Bilirubin 1.30 H, Direct Bilirubin 0.67 H, AST 82290 H, ALT 5681 H, Alkaline Phosphatase 170 H, Total Protein 6.0 L, Albumin 3.0 L, Globulin 3.0 07/28/18 04:30: Sodium 138, Potassium 5.6 H, Chloride 106, Carbon Dioxide 23.0, Anion Gap 9, BUN 43 H, Creatinine 3.71 H, Estim Creat Clear Calc 15.80, Est GFR (MDRD) Af Amer 16 L, Est GFR (MDRD) Non-Af 13 L, BUN/Creatinine Ratio 11.6, Glucose 128 H, Calcium 7.1 L 07/28/18 04:30: Troponin I 6.170 H* 07/28/18 05:00: WBC 10.1, RBC 3.94 L, Hgb 11.4 L, Hct 36.5 L, MCV 92.6, MCH 28.9, MCHC 31.2 L, RDW 14.2, RDW Differential 47.1 H, Plt Count 158, MPV 9.7, Immature Gran % (Auto) 0.200, Neut % (Auto) 83.9 H, Lymph % (Auto) 9.1 L, [place] % (Auto) 6.4, Eos % (Auto) 0.3, Baso % (Auto) 0.1, Absolute Neuts (auto) 8.4 H, Absolute Lymphs (auto) 0.91, Total Counted Not Reportable 07/28/18 06:35: PT 27.2 H, INR 2.5 07/28/18 06:50: Ur Random Sodium 55 Current Medications Chlorhexidine Gluconate () 1 each TOPICAL DAILY [facility] Sodium Chloride () 1,000 mls @ 150 mls/hr IV .[id number] [facility] Last Admin: 07/28/18 05:24 Dose: Not Given Sodium Chloride () 250 mls @ 15 mls/hr IV .[id number] PRN PRN Reason: SALINE FLUSH Last Admin: 07/27/18 21:44 Dose: 15 mls/hr Piperacillin Sod/Tazobactam (Sod 3.375 gm/ Sodium Chloride) 50 mls @ 12.5 mls/hr IV Q12 [facility] Last Admin: 07/27/18 21:19 Dose: 12.5 mls/hr Acetylcysteine 15,840 mg/ (Dextrose) 279.2 mls @ 200 mls/hr IV X1 ONE Stop: 07/28/18 09:44 Acetylcysteine 5,280 mg/ (Dextrose) 526.4 mls @ 125 mls/hr IV X1 ONE Stop: 07/28/18 12:33 Acetylcysteine 10,560 mg/ (Dextrose) 1,052.8 mls @ 62.5 mls/hr IV X1 ONE Stop: 07/29/18 01:11 Pantoprazole Sodium 40 mg/ (Sodium Chloride) 110 mls @ 330 mls/hr IV Q24 [facility] Influenza Virus Vaccine Quadrival (Fluarix/Fluzone) 0.5 ml IM .ONCE ONE Stop: 07/28/18 10:01 Insulin Human Lispro (Humalog Kwikpen (Bkc)) 0 unit SC ACHS [facility]; Protocol Last Admin: 07/27/18 21:20 Dose: Not Given Metoprolol Tartrate (Lopressor (Beta Denis)) 25 mg PO BID [facility] Last Admin: 07/27/18 21:19 Dose: 25 mg Nitroglycerin (Nitrostat) 0.4 mg SUBLINGUAL Q5M PRN PRN Reason: CARDIAC/CHEST PAIN Nutritional Formula (Lactose Free) (Glucerna Shake) 120 ml PO 4X/DAY [facility] Last Admin: 07/27/18 21:19 Dose: 120 ml Nystatin (Mycostatin Powder) 1 applic TOPICAL 4X/DAY [facility] Last Admin: 07/27/18 21:19 Dose: 1 applicatio Ondansetron HCl (Zofran) 4 mg IV Q8H PRN PRN PRN Reason: NAUSEA Oxycodone HCl (Oxyir) 5 - 10 mg PO Q6H PRN PRN PRN Reason: SEVERE PAIN (6-10/10) Last Admin: 07/27/18 23:37 Dose: 10 mg Sodium Chloride () 5 - 15 ml IV UD PRN PRN Reason: SALINE FLUSH Sodium Chloride () 10 - 40 ml IV UD PRN PRN Reason: MULTILUMEN/HICMAN CATH FLUSH Triamcinolone Acetonide (Triamcinolone Acetonide) 1 applic TOPICAL BID PRN PRN Reason: RASH/TOPICAL IRRITATION Medical Necessity - Tobacco Use Smoking Status: Current every day smoker Tobacco Use: Cigarettes Assessment/Plan All Active Problems Frequent falls (Acute) Shock, unspecified (Acute) GI bleed (Acute) Acute liver failure (Acute) Coagulopathy (Acute) UTI (urinary tract infection) (Acute) Hepatic encephalopathy (Acute) Lightheadedness (Acute) Unsteady gait (Acute) Headache (Acute) Chest pain (Acute) Weakness of both arms (Resolved) Numbness and tingling of right face (Resolved) Difficulty speaking (Resolved) NSTEMI (non-ST elevated myocardial infarction) (Resolved) Jaw pain (Resolved) The patient is a 63 year old F with multiple comorbidities including chronic back pain on oxycodone, Zanaflex and other medications came to ER with increased weakness for 1-2 days along with rectal bleed for about 12 days. As per triage note, patient also felt he is leaning on the left side. Prior to that, she was in ER recently on 07/16 and 07/25 for lower GI bleed and was seemed controlled and stable and therefore sent home for follow with Dr. Wynn for which she is scheduled for colonoscopy on 07/28. In ED, she was found hypotensive, SBP 90, hypoxic 83% on room air, tachypneic RR 26-30/min but not tachycardic. Basic lab work shows mild leukocytosis but H&H 12.0/38.5. Platelet count 223. INR 2.6, baseline 1.2 on 07/25. Severe hyperkalemia, K6.3, bicarb 23, sodium 133, BUN 33, creatinine 2.94. baseline BUN/creatinine runs 18/1.3. LFT shows significant AST 10,000/ALT 4541. Alk phos 150, total bili 2.3. Her LFTs were normal on 07/25 except alk phos 145. Patient is confused although oriented to time and place and person and therefore history is limited In ED, patient had right subclavian central venous catheter by ER physician. Chest x-ray shows lungs are clear but the tip of right subclavian catheter and right IJ. EKG shows normal sinus rhythm with first-degree AV block, QRS 136 ms, LAD with AV conduction delay. Patient had recent CT abdomen without oral and IV contrast which reported as fatty liver but normal gallbladder and extrahepatic bili system. Normal spleen and pancreas. Normal small intestine and colon. 1. Hypotension most probably from acute liver injury/severe sepsis: Lactic acid is 4.5. Lactic acid may be elevated from hypoperfusion/severe sepsis or acute liver injury. Patient is being admitted in ICU. Patient had IV Zosyn in ED. We will continue Zosyn until we rule out sepsis. Continue IV fluid normal saline. Gonzales culture. Respiratory panel ordered. Clerical Adviser is consulted. 2. Acute liver injury, most probably drug-induced liver injury with mild encephalopathy, most probably metabolic encephalopathy/hepatic encephalopathy: Patient has been taking oxycodone, Zovirax, tizanidine, Klonopin and amitriptyline and Crestor. Hold all home medications except metoprolol. Serum Tylenol, ammonia, GGTP, U tox and acute hepatitis panel ordered. Monitor LFT. Right upper quadrant sonogram reported as enlarged fatty liver. Even though, Tylenol level is normal, I feel the can try NAC drip empirically for drug-induced liver injury or cannabinoids or possible NSAIDs. Monitor LFT in evening and if does not show positive effect on transaminases we can discontinue it. Discussed with the pharmacist. 3. Acute kidney injury on CKD stage III with severe hyperkalemia: EKG does not show hyperkalemic changes. Patient was given hyperkalemia cocktail in ED. Kayexalate was given. K5.6 but creatinine worsened 3.1 from 2.9. Night Filler is being consulted. Urine output 105 mL and 30 mL since midnight; for oliguria 4. Electrolyte abnormalities: ABG shows 7.29/42/79 on 4 L of oxygen. Normal anion gap metabolic acidosis. Hyperkalemia, hyponatremia: On IV fluid normal saline. 5. Troponins non-STEMI range with history of non-STEMI with chronic systolic heart failure: Patient had echo in 2015 reported as EF 45% with moderate global hypokinesis. Mildly dilated LV. Left atrium moderately enlarged. Mild diffuse mitral thickening with 2+ eccentric MR. Normal tricuspid valve. Normal aortic valve. She had normal pharmacological stress test in November 2014. Patient was seen by Dr. 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 As per his note, patient had cardiac cath in past with normal epicardial coronaries. Differential diagnosis was Takasubo or microvascular angina or vasospasm angina. Denies chest pain this time. Box Order Person has been consulted. Echo is ordered. Patient is not stable for cardiac cath 6. Chronic nicotine use: Patient smokes 1 pack cigarettes daily since teenage. She admits drinking alcohol twice a week about 5-6 shots of whiskey for last 3 weeks continuously. Denies chronic alcohol use but she gets alcohol withdrawal symptoms like tremors and shaking if does not drink; Therefore she has chronic alcohol use and dependence Hypertension: Currently blood pressure is on lower side. Blood pressure has recovered Other multiple comorbidities include multiple degenerative joint disease, chronic back pain on pain medications, depression, irritable bowel syndrome, anxiety and depression: Prognosis is guarded. DVT prophylaxis: On bilateral SCDs. Pharmacological prophylaxis contraindicated secondary to coagulopathy and acute liver injury. Clinical Impression(s) from Imaging Studies Abdomen Ultrasound 07/27/18 14:45 IMPRESSION: Enlarged fatty liver. Mild pericholecystic fluid. Laboratory Results 07/27/18 12:04: Urine Color Yellow, Urine Clarity Sl. Cloudy, Urine pH 5.0, Ur Specific [place] 1.025, Urine Protein 100 H, Urine Glucose (UA) Normal, Urine Ketones 5 H, Urine Occult Blood 250 H, Urine Nitrite Negative, Urine Bilirubin 3 H, Urine Urobilinogen 4 H, Ur Leukocyte Esterase 100 H, Urine RBC 25-50 SEEN, Urine WBC 10-25 SEEN, Ur Squamous Epith Cells 0-5 SEEN, Amorphous Sediment 2+, Urine Bacteria 1+, Urine Mucus 0 SEEN 07/27/18 13:45: Acetaminophen < 2.0 L 07/27/18 13:45: Ammonia 51.0 H 07/27/18 13:45: Hepatitis A IgM Ab Pending, Hep Bs Antigen Pending, Hep B Core IgM Ab Pending, Hepatitis C Ab (EIA) Pending 07/27/18 13:45: GGT 69 H 07/27/18 13:45: Sodium 135 L, Potassium 5.5 H, Chloride 104, Carbon Dioxide 22.0, Anion Gap 9, BUN 34 H, Creatinine 2.80 H, Estim Creat Clear Calc 20.93, Est GFR (MDRD) Af Amer 22 L, Est GFR (MDRD) Non-Af 18 L, BUN/Creatinine Ratio 12.1, Glucose 221 H, Calcium 6.6 L 07/27/18 14:30: Urine Opiates Screen POSITIVE H, Urine Methadone Screen NEGATIVE, Ur Barbiturates Screen NEGATIVE, Ur Phencyclidine Scrn NEGATIVE, Ur Amphetamines Screen NEGATIVE, U Methamphetamin-MDMA NEGATIVE, U Benzodiazepines Scrn NEGATIVE, Urine Cocaine Screen NEGATIVE, U Cannabinoids Screen POSITIVE H, Ur Drug Screen Comment 07/27/18 15:55: Lactic Acid 2.6 H 07/27/18 17:10: POC Glucose 205 H 07/27/18 21:16: POC Glucose 134 H 07/28/18 04:30: Total Bilirubin 1.30 H, Direct Bilirubin 0.67 H, AST 74368 H, ALT 5681 H, Alkaline Phosphatase 170 H, Total Protein 6.0 L, Albumin 3.0 L, Globulin 3.0 07/28/18 04:30: Sodium 138, Potassium 5.6 H, Chloride 106, Carbon Dioxide 23.0, Anion Gap 9, BUN 43 H, Creatinine 3.71 H, Estim Creat Clear Calc 15.80, Est GFR (MDRD) Af Amer 16 L, Est GFR (MDRD) Non-Af 13 L, BUN/Creatinine Ratio 11.6, Glucose 128 H, Calcium 7.1 L 07/28/18 04:30: Troponin I 6.170 H* 07/28/18 05:00: WBC 10.1, RBC 3.94 L, Hgb 11.4 L, Hct 36.5 L, MCV 92.6, MCH 28.9, MCHC 31.2 L, RDW 14.2, RDW Differential 47.1 H, Plt Count 158, MPV 9.7, Immature Gran % (Auto) 0.200, Neut % (Auto) 83.9 H, Lymph % (Auto) 9.1 L, [place] % (Auto) 6.4, Eos % (Auto) 0.3, Baso % (Auto) 0.1, Absolute Neuts (auto) 8.4 H, Absolute Lymphs (auto) 0.91, Total Counted Not Reportable 07/28/18 06:35: PT 27.2 H, INR 2.5 07/28/18 06:50: Ur Random Sodium 55 Code Visit Inpatient E&M: 12160 Subs Hosp L3
--- NOTE | 2018-07-28 08:40 | PN_ITS ---
Patient Problems: Active and Suspected Problems Shock, unspecified (Acute) GI bleed (Acute) Acute liver failure (Acute) Coagulopathy (Acute) UTI (urinary tract infection) (Acute) Hepatic encephalopathy (Acute) Subjective: Patient did not had fever or tachycardia. Blood pressure is maintained. Patient feels tired and weak and sleepy. LFTs have worsened. Kidney function deteriorated. INR maintained at 2.5. U tox is positive of opioids and cannabinoids. Tylenol level normal. Vitals/I&O's: Vital Signs Temp Pulse Resp BP Pulse Ox 97.2 F L 82 21 H 148/53 H 96 07/28/18 05:00 07/28/18 06:00 07/28/18 06:00 07/28/18 06:00 07/28/18 06:00 Oxygen Flow Rate (L/min) 3 Oxygen Delivery Method Nasal Cannula Weight: 232 lb 12.93 oz Body Mass Index (BMI) 33.5 Finger Stick Blood Glucose 199 Intake and Output for Last 24 Hours 07/26/18 07/27/18 07/28/18 23:59 23:59 23:59 Intake Total 1464.9 / 1464.9 835.8 / 835.8 Output Total 105 / 105 30 / 30 Balance 1359.9 / 1359.9 805.8 / 805.8 General: Alert, Oriented x3, Cooperative, Lethargic HEENT: Atraumatic, PERRLA, EOMI, Normocephalic Oral: Moist Mucosa Neck: Supple, No JVD, Negative Carotid Bruits Lungs: No rhonchi, No wheeze, Diminished - Is diminished Cardiovascular: Regular rate, Regular Rhythm, Normal S1, Normal S2, No murmurs Abdomen: Bowel Sounds Present, Soft, Non Tender, Non-Distended Extremities: Capillary Refill Less than 3 Seconds, Edema Skin: No rashes, No breakdown Musculoskeletal: Arthritic Changes, Tenderness - Chronic spine tenderness Neurological: Cranial nerves II-XII grossly intact, Neuro grossly intact, - - No tremor/asterixis Psych/Mental Status: Normal Affect, Appropriate Microbiology Past 72 Hours 07/27/18 14:55 Mucosa - Nasopharyngeal Respiratory Panel (PCR) - Final Laboratory Results 07/27/18 10:30: WBC 14.5 H, RBC 4.16 L, Hgb 12.0, Hct 38.5, MCV 92.5, MCH 28.8, MCHC 31.2 L, RDW 14.6, RDW Differential 48.7 H, Plt Count 223, MPV 10.1, Immature Gran % (Auto) 0.400, Neut % (Auto) 86.8 H, Lymph % (Auto) 3.9 L, [place] % (Auto) 8.8, Eos % (Auto) 0.0, Baso % (Auto) 0.1, Absolute Neuts (auto) 12.6 H, Absolute Lymphs (auto) 0.56 L, Total Counted Not Reportable, Differential Comment COMMENT 07/27/18 10:30: PT 27.7 H, INR 2.6 07/27/18 10:30: Sodium 133 L, Potassium 6.3 H*, Chloride 99, Carbon Dioxide 23.0, Anion Gap 11, BUN 33 H, Creatinine 2.94 H, Estim Creat Clear Calc 19.94, Est GFR (MDRD) Af Amer 21 L, Est GFR (MDRD) Non-Af 17 L, BUN/Creatinine Ratio 11.2, Glucose 166 H, Calcium 7.6 L, Total Bilirubin 2.30 H, AST 21095 H, ALT 4541 H, Alkaline Phosphatase 150 H, Troponin I 0.504 H, Total Protein 6.6, Albumin 3.2, Globulin 3.4, Albumin/Globulin Ratio 0.9, Lipase 81 07/27/18 10:30: Ethyl Alcohol 11.0 07/27/18 10:30: Lactic Acid 4.5 H* 07/27/18 10:30: Acetone Level NEGATIVE 07/27/18 10:51: POC Glucose 191 H 07/27/18 11:27: Specimen Type ART, Sample Site R Radial, pH 7.29 L, Bicarbonate Actual 20.6 L, POC Total CO2 22, Base Excess -6 L, O2 Saturation 94 L, ABG pCO2 42.5, ABG pO2 79, Shahbaz Test POS, O2 Delivery Device Nasal Can, Liter Flow 4.0, Blood Gas Notified Whom ED , Blood Gas Notified Time 1126 07/27/18 12:04: Urine Color Yellow, Urine Clarity Sl. Cloudy, Urine pH 5.0, Ur Specific Leopold 1.025, Urine Protein 100 H, Urine Glucose (UA) Normal, Urine Ketones 5 H, Urine Occult Blood 250 H, Urine Nitrite Negative, Urine Bilirubin 3 H, Urine Urobilinogen 4 H, Ur Leukocyte Esterase 100 H, Urine RBC 25-50 SEEN, Urine WBC 10-25 SEEN, Ur Squamous Epith Cells 0-5 SEEN, Amorphous Sediment 2+, Urine Bacteria 1+, Urine Mucus 0 SEEN 07/27/18 13:45: Acetaminophen < 2.0 L 07/27/18 13:45: Ammonia 51.0 H 07/27/18 13:45: Hepatitis A IgM Ab Pending, Hep Bs Antigen Pending, Hep B Core IgM Ab Pending, Hepatitis C Ab (EIA) Pending 07/27/18 13:45: GGT 69 H 07/27/18 13:45: Sodium 135 L, Potassium 5.5 H, Chloride 104, Carbon Dioxide 22.0, Anion Gap 9, BUN 34 H, Creatinine 2.80 H, Estim Creat Clear Calc 20.93, Est GFR (MDRD) Af Amer 22 L, Est GFR (MDRD) Non-Af 18 L, BUN/Creatinine Ratio 12.1, Glucose 221 H, Calcium 6.6 L 07/27/18 14:30: Urine Opiates Screen POSITIVE H, Urine Methadone Screen NEGATIVE, Ur Barbiturates Screen NEGATIVE, Ur Phencyclidine Scrn NEGATIVE, Ur Amphetamines Screen NEGATIVE, U Methamphetamin-MDMA NEGATIVE, U Benzodiazepines Scrn NEGATIVE, Urine Cocaine Screen NEGATIVE, U Cannabinoids Screen POSITIVE H, Ur Drug Screen Comment 07/27/18 15:55: Lactic Acid 2.6 H 07/27/18 17:10: POC Glucose 205 H 07/27/18 21:16: POC Glucose 134 H 07/28/18 04:30: Total Bilirubin 1.30 H, Direct Bilirubin 0.67 H, AST 38515 H, ALT 5681 H, Alkaline Phosphatase 170 H, Total Protein 6.0 L, Albumin 3.0 L, Globulin 3.0 07/28/18 04:30: Sodium 138, Potassium 5.6 H, Chloride 106, Carbon Dioxide 23.0, Anion Gap 9, BUN 43 H, Creatinine 3.71 H, Estim Creat Clear Calc 15.80, Est GFR (MDRD) Af Amer 16 L, Est GFR (MDRD) Non-Af 13 L, BUN/Creatinine Ratio 11.6, Glucose 128 H, Calcium 7.1 L 07/28/18 04:30: Troponin I 6.170 H* 07/28/18 05:00: WBC 10.1, RBC 3.94 L, Hgb 11.4 L, Hct 36.5 L, MCV 92.6, MCH 28.9, MCHC 31.2 L, RDW 14.2, RDW Differential 47.1 H, Plt Count 158, MPV 9.7, Immature Gran % (Auto) 0.200, Neut % (Auto) 83.9 H, Lymph % (Auto) 9.1 L, [place] % (Auto) 6.4, Eos % (Auto) 0.3, Baso % (Auto) 0.1, Absolute Neuts (auto) 8.4 H, Absolute Lymphs (auto) 0.91, Total Counted Not Reportable 07/28/18 06:35: PT 27.2 H, INR 2.5 07/28/18 06:50: Ur Random Sodium 55 Current Medications Chlorhexidine Gluconate () 1 each TOPICAL DAILY [facility] Sodium Chloride () 1,000 mls @ 150 mls/hr IV .[id number] [facility] Last Admin: 07/28/18 05:24 Dose: Not Given Sodium Chloride () 250 mls @ 15 mls/hr IV .[id number] PRN PRN Reason: SALINE FLUSH Last Admin: 07/27/18 21:44 Dose: 15 mls/hr Piperacillin Sod/Tazobactam (Sod 3.375 gm/ Sodium Chloride) 50 mls @ 12.5 mls/hr IV Q12 [facility] Last Admin: 07/27/18 21:19 Dose: 12.5 mls/hr Acetylcysteine 15,840 mg/ (Dextrose) 279.2 mls @ 200 mls/hr IV X1 ONE Stop: 07/28/18 09:44 Acetylcysteine 5,280 mg/ (Dextrose) 526.4 mls @ 125 mls/hr IV X1 ONE Stop: 07/28/18 12:33 Acetylcysteine 10,560 mg/ (Dextrose) 1,052.8 mls @ 62.5 mls/hr IV X1 ONE Stop: 07/29/18 01:11 Pantoprazole Sodium 40 mg/ (Sodium Chloride) 110 mls @ 330 mls/hr IV Q24 [facility] Influenza Virus Vaccine Quadrival (Fluarix/Fluzone) 0.5 ml IM .ONCE ONE Stop: 07/28/18 10:01 Insulin Human Lispro (Humalog Kwikpen (Bkc)) 0 unit SC ACHS [facility]; Protocol Last Admin: 07/27/18 21:20 Dose: Not Given Metoprolol Tartrate (Lopressor (Beta Denis)) 25 mg PO BID [facility] Last Admin: 07/27/18 21:19 Dose: 25 mg Nitroglycerin (Nitrostat) 0.4 mg SUBLINGUAL Q5M PRN PRN Reason: CARDIAC/CHEST PAIN Nutritional Formula (Lactose Free) (Glucerna Shake) 120 ml PO 4X/DAY [facility] Last Admin: 07/27/18 21:19 Dose: 120 ml Nystatin (Mycostatin Powder) 1 applic TOPICAL 4X/DAY [facility] Last Admin: 07/27/18 21:19 Dose: 1 applicatio Ondansetron HCl (Zofran) 4 mg IV Q8H PRN PRN PRN Reason: NAUSEA Oxycodone HCl (Oxyir) 5 - 10 mg PO Q6H PRN PRN PRN Reason: SEVERE PAIN (6-10/10) Last Admin: 07/27/18 23:37 Dose: 10 mg Sodium Chloride () 5 - 15 ml IV UD PRN PRN Reason: SALINE FLUSH Sodium Chloride () 10 - 40 ml IV UD PRN PRN Reason: MULTILUMEN/HICMAN CATH FLUSH Triamcinolone Acetonide (Triamcinolone Acetonide) 1 applic TOPICAL BID PRN PRN Reason: RASH/TOPICAL IRRITATION Medical Necessity - Tobacco Use Smoking Status: Current every day smoker Tobacco Use: Cigarettes Assessment/Plan All Active Problems Frequent falls (Acute) Shock, unspecified (Acute) GI bleed (Acute) Acute liver failure (Acute) Coagulopathy (Acute) UTI (urinary tract infection) (Acute) Hepatic encephalopathy (Acute) Lightheadedness (Acute) Unsteady gait (Acute) Headache (Acute) Chest pain (Acute) Weakness of both arms (Resolved) Numbness and tingling of right face (Resolved) Difficulty speaking (Resolved) NSTEMI (non-ST elevated myocardial infarction) (Resolved) Jaw pain (Resolved) The patient is a 63 year old F with multiple comorbidities including chronic back pain on oxycodone, Zanaflex and other medications came to ER with increased weakness for 1-2 days along with rectal bleed for about 12 days. As per triage note, patient also felt he is leaning on the left side. Prior to that, she was in ER recently on 07/16 and 07/25 for lower GI bleed and was seemed controlled and stable and therefore sent home for follow with Dr. Wynn for which she is scheduled for colonoscopy on 07/28. In ED, she was found hypotensive, SBP 90, hypoxic 83% on room air, tachypneic RR 26-30/min but not tachycardic. Basic lab work shows mild leukocytosis but H&H 12.0/38.5. Platelet count 223. INR 2.6, baseline 1.2 on 07/25. Severe hyperkalemia, K6.3, bicarb 23, sodium 133, BUN 33, creatinine 2.94. baseline BUN/creatinine runs 18/1.3. LFT shows significant AST 10,000/ALT 4541. Alk phos 150, total bili 2.3. Her LFTs were normal on 07/25 except alk phos 145. Patient is confused although oriented to time and place and person and therefore history is limited In ED, patient had right subclavian central venous catheter by ER physician. Chest x-ray shows lungs are clear but the tip of right subclavian catheter and right IJ. EKG shows normal sinus rhythm with first-degree AV block, QRS 136 ms, LAD with AV conduction delay. Patient had recent CT abdomen without oral and IV contrast which reported as fatty liver but normal gallbladder and extrahepatic bili system. Normal spleen and pancreas. Normal small intestine and colon. 1. Hypotension most probably from acute liver injury/severe sepsis: Lactic acid is 4.5. Lactic acid may be elevated from hypoperfusion/severe sepsis or acute liver injury. Patient is being admitted in ICU. Patient had IV Zosyn in ED. We will continue Zosyn until we rule out sepsis. Continue IV fluid normal saline. Gonzales culture. Respiratory panel ordered. Java Engineer is consulted. 2. Acute liver injury, most probably drug-induced liver injury with mild encephalopathy, most probably metabolic encephalopathy/hepatic encephalopathy: Patient has been taking oxycodone, Zovirax, tizanidine, Klonopin and amitriptyline and Crestor. Hold all home medications except metoprolol. Serum Tylenol, ammonia, GGTP, U tox and acute hepatitis panel ordered. Monitor LFT. Right upper quadrant sonogram reported as enlarged fatty liver. Even though, Tylenol level is normal, I feel the can try NAC drip empirically for drug- induced liver injury or cannabinoids or possible NSAIDs. Monitor LFT in evening and if does not show positive effect on transaminases we can discontinue it. Discussed with the pharmacist. 3. Acute kidney injury on CKD stage III with severe hyperkalemia: EKG does not show hyperkalemic changes. Patient was given hyperkalemia cocktail in ED. Kayexalate was given. K5.6 but creatinine worsened 3.1 from 2.9. Upholsterer Inside is being consulted. Urine output 105 mL and 30 mL since midnight; for oliguria 4. Electrolyte abnormalities: ABG shows 7.29/42/79 on 4 L of oxygen. Normal anion gap metabolic acidosis. Hyperkalemia, hyponatremia: On IV fluid normal saline. 5. Troponins non-STEMI range with history of non-STEMI with chronic systolic heart failure: Patient had echo in 2015 reported as EF 45% with moderate global hypokinesis. Mildly dilated LV. Left atrium moderately enlarged. Mild diffuse mitral thickening with 2+ eccentric MR. Normal tricuspid valve. Normal aortic valve. She had normal pharmacological stress test in November 2014. Patient was seen by Dr. Qureshi in 2014, [facility] tutoring manager. As per his note, patient had cardiac cath in past with normal epicardial coronaries. Differential diagnosis was Takasubo or microvascular angina or vasospasm angina. Denies chest pain this time. Software Developer Manager has been consulted. Echo is ordered. Patient is not stable for cardiac cath 6. Chronic nicotine use: Patient smokes 1 pack cigarettes daily since teenage. She admits drinking alcohol twice a week about 5-6 shots of whiskey for last 3 w eeks continuously. Denies chronic alcohol use but she gets alcohol withdrawal symptoms like tremors and shaking if does not drink; Therefore she has chronic alcohol use and dependence Hypertension: Currently blood pressure is on lower side. Blood pressure has recovered Other multiple comorbidities include multiple degenerative joint disease, chronic back pain on pain medications, depression, irritable bowel syndrome, anxiety and depression: Prognosis is guarded. DVT prophylaxis: On bilateral SCDs. Pharmacological prophylaxis contraindicated secondary to coagulopathy and acute liver injury. Clinical Impression(s) from Imaging Studies Abdomen Ultrasound 07/27/18 14:45 IMPRESSION: Enlarged fatty liver. Mild pericholecystic fluid. Laboratory Results 07/27/18 12:04: Urine Color Yellow, Urine Clarity Sl. Cloudy, Urine pH 5.0, Ur Specific Leopold 1.025, Urine Protein 100 H, Urine Glucose (UA) Normal, Urine Ketones 5 H, Urine Occult Blood 250 H, Urine Nitrite Negative, Urine Bilirubin 3 H, Urine Urobilinogen 4 H, Ur Leukocyte Esterase 100 H, Urine RBC 25-50 SEEN, Urine WBC 10-25 SEEN, Ur Squamous Epith Cells 0-5 SEEN, Amorphous Sediment 2+, Urine Bacteria 1+, Urine Mucus 0 SEEN 07/27/18 13:45: Acetaminophen < 2.0 L 07/27/18 13:45: Ammonia 51.0 H 07/27/18 13:45: Hepatitis A IgM Ab Pending, Hep Bs Antigen Pending, Hep B Core IgM Ab Pending, Hepatitis C Ab (EIA) Pending 07/27/18 13:45: GGT 69 H 07/27/18 13:45: Sodium 135 L, Potassium 5.5 H, Chloride 104, Carbon Dioxide 22.0, Anion Gap 9, BUN 34 H, Creatinine 2.80 H, Estim Creat Clear Calc 20.93, Est GFR (MDRD) Af Amer 22 L, Est GFR (MDRD) Non-Af 18 L, BUN/Creatinine Ratio 12.1, Glucose 221 H, Calcium 6.6 L 07/27/18 14:30: Urine Opiates Screen POSITIVE H, Urine Methadone Screen NEGATIVE, Ur Barbiturates Screen NEGATIVE, Ur Phencyclidine Scrn NEGATIVE, Ur Amphetamines Screen NEGATIVE, U Methamphetamin-MDMA NEGATIVE, U Benzodiazepines Scrn NEGATIVE, Urine Cocaine Screen NEGATIVE, U Cannabinoids Screen POSITIVE H, Ur Drug Screen Comment 07/27/18 15:55: Lactic Acid 2.6 H 07/27/18 17:10: POC Glucose 205 H 07/27/18 21:16: POC Glucose 134 H 07/28/18 04:30: Total Bilirubin 1.30 H, Direct Bilirubin 0.67 H, AST 96548 H, AL T 5681 H, Alkaline Phosphatase 170 H, Total Protein 6.0 L, Albumin 3.0 L, Globulin 3.0 07/28/18 04:30: Sodium 138, Potassium 5.6 H, Chloride 106, Carbon Dioxide 23.0, Anion Gap 9, BUN 43 H, Creatinine 3.71 H, Estim Creat Clear Calc 15.80, Est GFR (MDRD) Af Amer 16 L, Est GFR (MDRD) Non-Af 13 L, BUN/Creatinine Ratio 11.6, Glucose 128 H, Calcium 7.1 L 07/28/18 04:30: Troponin I 6.170 H* 07/28/18 05:00: WBC 10.1, RBC 3.94 L, Hgb 11.4 L, Hct 36.5 L, MCV 92.6, MCH 28.9, MCHC 31.2 L, RDW 14.2, RDW Differential 47.1 H, Plt Count 158, MPV 9.7, Immature Gran % (Auto) 0.200, Neut % (Auto) 83.9 H, Lymph % (Auto) 9.1 L, [place] % (Auto) 6.4, Eos % (Auto) 0.3, Baso % (Auto) 0.1, Absolute Neuts (auto) 8.4 H, Absolute Lymphs (auto) 0.91, Total Counted Not Reportable 07/28/18 06:35: PT 27.2 H, INR 2.5 07/28/18 06:50: Ur Random Sodium 55 Code Visit Inpatient E&M: 36549 Subs Hosp L3
[2018-07-28 08:45] LABS: Bedside Glucose 131 mg/dL (70-110)
--- NOTE | 2018-07-28 09:33 | CASEMGMT ---
Unable to complete assessment at this time as patient is confused and there are no family members. Will complete assessment once patient clears or if friend/family visits. Brigette GASCA MSW
[2018-07-28] MEDS: Acetylcysteine 15,000 MG in Dextrose 5% 200 ML 200 MG IV (09:44)
[2018-07-28] MEDS: CHLORHEXIDINE GLUC 2% CLOTH 1 EACH TOWELETTE TOPICAL (09:44)
[2018-07-28] MEDS: Metoprolol Tartrate 25 MG Tablet PO ×2 (09:50→21:46)
[2018-07-28] MEDS: Nystatin Powder 15gm Bottle 1 APPLIC TOPICAL ×4 (09:51→21:46)
--- NOTE | 2018-07-28 09:54 | CT_ITS ---
STUDY: CT ABDOMEN WITH AND WITHOUT CONTRAST REASON FOR EXAM: Female, 63 years old. The examination was obtained to rule out hepatic vein thrombosis. RADIATION DOSAGE (If Supplied By Facility): CTDIvol = ( 25.52 ) mGy, DLP = ( 2174.69 ) mGycm TECHNIQUE: Transaxial images were obtained pre and post I.V. administration of 100 IV Isovue 300, and without oral contrast. Sagittal and coronal images were reconstructed. Individualized dose optimization techniques were used for this CT. COMPARISON: Comparison is made with prior study dated July 25, 2018. FINDINGS: There is a new small right pleural effusion with underlying infiltration and/or atelectasis. Coronary artery calcification. There is hepatomegaly with diffuse hepatic enlargement. The hepatic veins as well as the portal vein are patent. Increased attenuation is seen within the gallbladder lumen suggestive of either sludge or vicarious excretion of contrast. Normal spleen. Normal pancreas. Normal bilateral adrenal glands. Nonspecific mild degree of bilateral perinephric stranding. Normal visualized stomach. Normal small intestine. Normal colon. The appendix is visualized and appears normal. There is scattered atherosclerotic calcification of the abdominal aorta, without a demonstrated aneurysm. Normal inferior vena cava. Normal retroperitoneum. Normal abdominal wall. There are degenerative changes of the visualized lumbar spine. CT/Abdomen W/WO IV Contrast IMPRESSION: Small right pleural effusion with underlying infiltration and/or atelectasis. The portal vein as well as the hepatic veins are patent. Electronically Signed: Doug Brown, at 13:42 EDT , Service support ,
--- NOTE | 2018-07-28 10:40 | PCM.CONS.R ---
Problem List (1) Acute renal failure Status: Acute Consultation - Renal 07/28/18 PCP/ Referring MD: Requesting physician: Dr Hollis Primary care physician: Crystal Earl Reason for Consultation:: GEORGE - History of Present Illness History of Present Illness: The patient is a 63 year old F who was admitted with generalized weakness for the last few days, bright red bleeding MT for 2 weeks. renal consulted for GEORGE. baseline creatinine is around 1.3 to 1.4. 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 current events - Acute liver injury. LFTs bumped from normal to more than 10,000 in 2 days - elevated troponins - now at 6.1 - acute renal failure - anuric - hypotension - better - lactic acidosis - better with resuscitation history of heavy ETOH use as per charts currently complains of weakness alone. - Allergies Allergies: Allergies duloxetine HCl [From Cymbalta] Adverse Reaction (Verified 07/25/18 09:39) Other morphine Adverse Reaction (Verified 07/25/18 09:39) Itching pramipexole di-HCl [From Mirapex] Adverse Reaction (Verified 07/25/18 09:39) Other Sulfa (Sulfonamide Antibiotics) Adverse Reaction (Verified 07/25/18 09:39) Unknown tramadol HCl [From Ultram] Adverse Reaction (Verified 07/25/18 09:39) Itching varenicline [From Chantix] Adverse Reaction (Verified 07/25/18 09:39) Unknown - Current Medications Current Medications: Current Medications Chlorhexidine Gluconate () 1 each TOPICAL DAILY NELIDA Last Admin: 07/28/18 09:44 Dose: 1 each Heparin Sodium (Porcine) () 2,500 units IV UD PRN PRN Reason: HEPARIN FLUSH Sodium Chloride () 250 mls @ 15 mls/hr IV .[id number] PRN PRN Reason: SALINE FLUSH Last Admin: 07/27/18 21:44 Dose: 15 mls/hr Acetylcysteine 5,000 mg/ (Dextrose) 525 mls @ 125 mls/hr IV X1 ONE Stop: 07/28/18 14:21 Acetylcysteine 10,000 mg/ (Dextrose) 1,050 mls @ 62.5 mls/hr IV X1 ONE Stop: 07/29/18 07:17 Pantoprazole Sodium 40 mg/ (Sodium Chloride) 110 mls @ 330 mls/hr IV Q24 [facility] Ceftriaxone Sodium 2 gm/ (Sodium Chloride) 50 mls @ 100 mls/hr IV Q24 [facility] Last Admin: 07/28/18 09:44 Dose: 100 mls/hr Insulin Human Lispro (Humalog Kwikpen (Bkc)) 0 unit SC ACHS [facility]; Protocol Last Admin: 07/28/18 08:42 Dose: Not Given Metoprolol Tartrate (Lopressor (Beta Denis)) 25 mg PO BID [facility] Last Admin: 07/28/18 09:50 Dose: 25 mg Nitroglycerin (Nitrostat) 0.4 mg SUBLINGUAL Q5M PRN PRN Reason: CARDIAC/CHEST PAIN Nutritional Formula (Lactose Free) (Glucerna Shake) 120 ml PO 4X/DAY [facility] Last Admin: 07/28/18 09:44 Dose: Not Given Nystatin (Mycostatin Powder) 1 applic TOPICAL 4X/DAY [facility] Last Admin: 07/28/18 09:51 Dose: 1 applicatio Ondansetron HCl (Zofran) 4 mg IV Q8H PRN PRN PRN Reason: NAUSEA Oxycodone HCl (Oxyir) 5 - 10 mg PO Q6H PRN PRN PRN Reason: SEVERE PAIN (6-10/10) Last Admin: 07/27/18 23:37 Dose: 10 mg Sodium Chloride () 5 - 15 ml IV UD PRN PRN Reason: SALINE FLUSH Sodium Chloride () 10 - 40 ml IV UD PRN PRN Reason: MULTILUMEN/HICMAN CATH FLUSH Sodium Chloride () 10 ml IV UD PRN PRN Reason: Dialysis Catheter Flush Triamcinolone Acetonide (Triamcinolone Acetonide) 1 applic TOPICAL BID PRN PRN Reason: RASH/TOPICAL IRRITATION - Past Medical History Past Medical History (Chronic Problems): Chronic Problems Cardiomyopathy (Chronic) HTN (hypertension) (Chronic) Tobacco use disorder (Chronic) Esophageal reflux (Chronic) Depressive disorder (Chronic) Back ache (Chronic) Irritable bowel syndrome (IBS) (Chronic) Anxiety disorder (Chronic) - Past Surgical History Surgical History: noncontributory, - - Uterine suspension, coronary artery stent placement - Social History Smoking Status: Current every day smoker Alcohol: Occasional - Uncertain the amount - Family History Maternal History Items: No pertinent history - Patient was adopted Paternal History Items: No pertinent history - Was adopted Review of Systems Constitutional: Denies: Chills, Fever, Weight Change HEENT: Denies: Head Aches, Sinus Congestion, Sinus Drainage Cardiovascular: Denies: Chest Pain, Palpitations Respiratory: Denies: Cough, Shortness of breath at rest, Sputum production Gastrointestinal: Denies: Abdominal Pain, Nausea, Vomiting Genitourinary: Denies: Dysuria Musculoskeletal: Denies: Joint Pain, Joint Tenderness Skin: Denies: Rash, Wounds Neurological: Denies: Numbness, Tingling, Focal weakness Psychiatric: Denies: Anxiety, Depression, Homicidal Ideations, Suicidal Ideations Hematologic/ Lymphatic: Denies: Easy Bruising, Easy Bleeding Patient Problems: Active and Suspected Problems Shock, unspecified (Acute) GI bleed (Acute) Acute liver failure (Acute) Coagulopathy (Acute) UTI (urinary tract infection) (Acute) Hepatic encephalopathy (Acute) Acute renal insufficiency (Acute) Acute renal failure (Acute) - Physical Exam General: Alert, Oriented x3, Cooperative HEENT: Atraumatic, PERRLA, EOMI, Normocephalic Neck: Supple, No JVD, Negative Carotid Bruits Lungs: Clear to auscultation, Normal air movement Cardiovascular: Regular rate, No murmurs Abdomen: Bowel Sounds Present, Soft, Non Tender Extremities: No edema, Capillary Refill Less than 3 Seconds Skin: No rashes, No breakdown Musculoskeletal: No Tenderness to Palpation of Joints or Extremities Neurological: Cranial nerves II-XII grossly intact Psych/Mental Status: Normal Affect, Appropriate Vital Signs Temp Pulse Resp BP Pulse Ox 98 F 90 19 H 153/67 H 95 07/28/18 08:00 07/28/18 10:00 07/28/18 10:00 07/28/18 10:07/28/18 10:00 Oxygen Flow Rate (L/min) 2 Oxygen Delivery Method Nasal Cannula Weight: 105.6 kg Body Mass Index (BMI) 33.5 Finger Stick Blood Glucose 199 Intake and Output for Last 24 Hours 07/26/18 07/27/18 07/28/18 23:59 23:59 23:59 Intake Total 1464.9 / 1464.9 835.8 / 835.8 Output Total 105 / 105 30 / 30 Balance 1359.9 / 1359.9 805.8 / 805.8 Microbiology Past 72 Hours 07/27/18 14:55 Respiratory Panel (PCR) - Final Mucosa - Nasopharyngeal Laboratory Tests Past 24 Hrs 07/27/18 07/27/18 07/27/18 10:30 10:30 10:30 WBC 14.5 H RBC 4.16 L Hgb 12.0 Hct 38.5 MCV 92.5 MCH 28.8 MCHC 31.2 L RDW 14.6 RDW Differential 48.7 H Plt Count 223 MPV 10.1 Immature Gran % (Auto) 0.400 Neut % (Auto) 86.8 H Lymph % (Auto) 3.9 L Crisp % (Auto) 8.8 Eos % (Auto) 0.0 Baso % (Auto) 0.1 Absolute Neuts (auto) 12.6 H Absolute Lymphs (auto) 0.56 L Total Counted Not Reportable Differential Comment COMMENT PT 27.7 H INR 2.6 Specimen Type Sample Site pH Bicarbonate Actual POC Total CO2 Base Excess O2 Saturation ABG pCO2 ABG pO2 Shahbaz Test O2 Delivery Device Liter Flow Blood Gas Notified Whom Blood Gas Notified Time Sodium 133 L Potassium 6.3 H* Chloride 99 Carbon Dioxide 23.0 Anion Gap 11 BUN 33 H Creatinine 2.94 H Estim Creat Clear Calc 19.94 Est GFR (MDRD) Af Amer 21 L Est GFR (MDRD) Non-Af 17 L BUN/Creatinine Ratio 11.2 Glucose 166 H Lactic Acid Calcium 7.6 L Total Bilirubin 2.30 H Direct Bilirubin GGT AST 89637 H ALT 4541 H Alkaline Phosphatase 150 H Ammonia Troponin I 0.504 H Total Protein 6.6 Albumin 3.2 Globulin 3.4 Albumin/Globulin Ratio 0.9 Lipase 81 Urine Color Urine Clarity Urine pH Ur Specific [place] Urine Protein Urine Glucose (UA) Urine Ketones Urine Occult Blood Urine Nitrite Urine Bilirubin Urine Urobilinogen Ur Leukocyte Esterase Urine RBC Urine WBC Ur Squamous Epith Cells Amorphous Sediment Urine Bacteria Urine Mucus Ur Random Sodium Urine Opiates Screen Urine Methadone Screen Acetaminophen Ur Barbiturates Screen Ur Phencyclidine Scrn Ur Amphetamines Screen U Methamphetamin-MDMA U Benzodiazepines Scrn Urine Cocaine Screen U Cannabinoids Screen Ur Drug Screen Comment Ethyl Alcohol Acetone Level Hepatitis A IgM Ab Hep Bs Antigen Hep B Core IgM Ab Hepatitis C Ab (EIA) 07/27/18 07/27/18 07/27/18 10:30 10:30 10:30 WBC RBC Hgb Hct MCV MCH MCHC RDW RDW Differential Plt Count MPV Immature Gran % (Auto) Neut % (Auto) Lymph % (Auto) Crisp % (Auto) Eos % (Auto) Baso % (Auto) Absolute Neuts (auto) Absolute Lymphs (auto) Total Counted Differential Comment PT INR Specimen Type Sample Site pH Bicarbonate Actual POC Total CO2 Base Excess O2 Saturation ABG pCO2 ABG pO2 Shahbaz Test O2 Delivery Device Liter Flow Blood Gas Notified Whom Blood Gas Notified Time Sodium Potassium Chloride Carbon Dioxide Anion Gap BUN Creatinine Estim Creat Clear Calc Est GFR (MDRD) Af Amer Est GFR (MDRD) Non-Af BUN/Creatinine Ratio Glucose Lactic Acid 4.5 H* Calcium Total Bilirubin Direct Bilirubin GGT AST ALT Alkaline Phosphatase Ammonia Troponin I Total Protein Albumin Globulin Albumin/Globulin Ratio Lipase Urine Color Urine Clarity Urine pH Ur Specific [place] Urine Protein Urine Glucose (UA) Urine Ketones Urine Occult Blood Urine Nitrite Urine Bilirubin Urine Urobilinogen Ur Leukocyte Esterase Urine RBC Urine WBC Ur Squamous Epith Cells Amorphous Sediment Urine Bacteria Urine Mucus Ur Random Sodium Urine Opiates Screen Urine Methadone Screen Acetaminophen Ur Barbiturates Screen Ur Phencyclidine Scrn Ur Amphetamines Screen U Methamphetamin-MDMA U Benzodiazepines Scrn Urine Cocaine Screen U Cannabinoids Screen Ur Drug Screen Comment Ethyl Alcohol 11.0 Acetone Level NEGATIVE Hepatitis A IgM Ab Hep Bs Antigen Hep B Core IgM Ab Hepatitis C Ab (EIA) 07/27/18 07/27/18 07/27/18 11:27 12:04 13:45 WBC RBC Hgb Hct MCV MCH MCHC RDW RDW Differential Plt Count MPV Immature Gran % (Auto) Neut % (Auto) Lymph % (Auto) Crisp % (Auto) Eos % (Auto) Baso % (Auto) Absolute Neuts (auto) Absolute Lymphs (auto) Total Counted Differential Comment PT INR Specimen Type ART Sample Site R Radial pH 7.29 L Bicarbonate Actual 20.6 L POC Total CO2 22 Base Excess -6 L O2 Saturation 94 L ABG pCO2 42.5 ABG pO2 79 Shahbaz Test POS O2 Delivery Device Nasal Can Liter Flow 4.0 Blood Gas Notified Whom ED Blood Gas Notified Time 1126 Sodium Potassium Chloride Carbon Dioxide Anion Gap BUN Creatinine Estim Creat Clear Calc Est GFR (MDRD) Af Amer Est GFR (MDRD) Non-Af BUN/Creatinine Ratio Glucose Lactic Acid Calcium Total Bilirubin Direct Bilirubin GGT AST ALT Alkaline Phosphatase Ammonia Troponin I Total Protein Albumin Globulin Albumin/Globulin Ratio Lipase Urine Color Yellow Urine Clarity Sl. Cloudy Urine pH 5.0 Ur Specific [place] 1.025 Urine Protein 100 H Urine Glucose (UA) Normal Urine Ketones 5 H Urine Occult Blood 250 H Urine Nitrite Negative Urine Bilirubin 3 H Urine Urobilinogen 4 H Ur Leukocyte Esterase 100 H Urine RBC 25-50 SEEN Urine WBC 10-25 SEEN Ur Squamous Epith Cells 0-5 SEEN Amorphous Sediment 2+ Urine Bacteria 1+ Urine Mucus 0 SEEN Ur Random Sodium Urine Opiates Screen Urine Methadone Screen Acetaminophen < 2.0 L Ur Barbiturates Screen Ur Phencyclidine Scrn Ur Amphetamines Screen U Methamphetamin-MDMA U Benzodiazepines Scrn Urine Cocaine Screen U Cannabinoids Screen Ur Drug Screen Comment Ethyl Alcohol Acetone Level Hepatitis A IgM Ab Hep Bs Antigen Hep B Core IgM Ab Hepatitis C Ab (EIA) 07/27/18 07/27/18 07/27/18 13:45 13:45 13:45 WBC RBC Hgb Hct MCV MCH MCHC RDW RDW Differential Plt Count MPV Immature Gran % (Auto) Neut % (Auto) Lymph % (Auto) Crisp % (Auto) Eos % (Auto) Baso % (Auto) Absolute Neuts (auto) Absolute Lymphs (auto) Total Counted Differential Comment PT INR Specimen Type Sample Site pH Bicarbonate Actual POC Total CO2 Base Excess O2 Saturation ABG pCO2 ABG pO2 Shahbaz Test O2 Delivery Device Liter Flow Blood Gas Notified Whom Blood Gas Notified Time Sodium Potassium Chloride Carbon Dioxide Anion Gap BUN Creatinine Estim Creat Clear Calc Est GFR (MDRD) Af Amer Est GFR (MDRD) Non-Af BUN/Creatinine Ratio Glucose Lactic Acid Calcium Total Bilirubin Direct Bilirubin GGT 69 H AST ALT Alkaline Phosphatase Ammonia 51.0 H Troponin I Total Protein Albumin Globulin Albumin/Globulin Ratio Lipase Urine Color Urine Clarity Urine pH Ur Specific [place] Urine Protein Urine Glucose (UA) Urine Ketones Urine Occult Blood Urine Nitrite Urine Bilirubin Urine Urobilinogen Ur Leukocyte Esterase Urine RBC Urine WBC Ur Squamous Epith Cells Amorphous Sediment Urine Bacteria Urine Mucus Ur Random Sodium Urine Opiates Screen Urine Methadone Screen Acetaminophen Ur Barbiturates Screen Ur Phencyclidine Scrn Ur Amphetamines Screen U Methamphetamin-MDMA U Benzodiazepines Scrn Urine Cocaine Screen U Cannabinoids Screen Ur Drug Screen Comment Ethyl Alcohol Acetone Level Hepatitis A IgM Ab Pending Hep Bs Antigen Pending Hep B Core IgM Ab Pending Hepatitis C Ab (EIA) Pending 07/27/18 07/27/18 07/27/18 13:45 14:30 15:55 WBC RBC Hgb Hct MCV MCH MCHC RDW RDW Differential Plt Count MPV Immature Gran % (Auto) Neut % (Auto) Lymph % (Auto) Crisp % (Auto) Eos % (Auto) Baso % (Auto) Absolute Neuts (auto) Absolute Lymphs (auto) Total Counted Differential Comment PT INR Specimen Type Sample Site pH Bicarbonate Actual POC Total CO2 Base Excess O2 Saturation ABG pCO2 ABG pO2 Shahbaz Test O2 Delivery Device Liter Flow Blood Gas Notified Whom Blood Gas Notified Time Sodium 135 L Potassium 5.5 H Chloride 104 Carbon Dioxide 22.0 Anion Gap 9 BUN 34 H Creatinine 2.80 H Estim Creat Clear Calc 20.93 Est GFR (MDRD) Af Amer 22 L Est GFR (MDRD) Non-Af 18 L BUN/Creatinine Ratio 12.1 Glucose 221 H Lactic Acid 2.6 H Calcium 6.6 L Total Bilirubin Direct Bilirubin GGT AST ALT Alkaline Phosphatase Ammonia Troponin I Total Protein Albumin Globulin Albumin/Globulin Ratio Lipase Urine Color Urine Clarity Urine pH Ur Specific [place] Urine Protein Urine Glucose (UA) Urine Ketones Urine Occult Blood Urine Nitrite Urine Bilirubin Urine Urobilinogen Ur Leukocyte Esterase Urine RBC Urine WBC Ur Squamous Epith Cells Amorphous Sediment Urine Bacteria Urine Mucus Ur Random Sodium Urine Opiates Screen POSITIVE H Urine Methadone Screen NEGATIVE Acetaminophen Ur Barbiturates Screen NEGATIVE Ur Phencyclidine Scrn NEGATIVE Ur Amphetamines Screen NEGATIVE U Methamphetamin-MDMA NEGATIVE U Benzodiazepines Scrn NEGATIVE Urine Cocaine Screen NEGATIVE U Cannabinoids Screen POSITIVE H Ur Drug Screen Comment Ethyl Alcohol Acetone Level Hepatitis A IgM Ab Hep Bs Antigen Hep B Core IgM Ab Hepatitis C Ab (EIA) 07/28/18 07/28/18 07/28/18 04:30 04:30 04:30 WBC RBC Hgb Hct MCV MCH MCHC RDW RDW Differential Plt Count MPV Immature Gran % (Auto) Neut % (Auto) Lymph % (Auto) Crisp % (Auto) Eos % (Auto) Baso % (Auto) Absolute Neuts (auto) Absolute Lymphs (auto) Total Counted Differential Comment PT INR Specimen Type Sample Site pH Bicarbonate Actual POC Total CO2 Base Excess O2 Saturation ABG pCO2 ABG pO2 Shahbaz Test O2 Delivery Device Liter Flow Blood Gas Notified Whom Blood Gas Notified Time Sodium 138 Potassium 5.6 H Chloride 106 Carbon Dioxide 23.0 Anion Gap 9 BUN 43 H Creatinine 3.71 H Estim Creat Clear Calc 15.80 Est GFR (MDRD) Af Amer 16 L Est GFR (MDRD) Non-Af 13 L BUN/Creatinine Ratio 11.6 Glucose 128 H Lactic Acid Calcium 7.1 L Total Bilirubin 1.30 H Direct Bilirubin 0.67 H GGT AST 59121 H ALT 5681 H Alkaline Phosphatase 170 H Ammonia Troponin I 6.170 H* Total Protein 6.0 L Albumin 3.0 L Globulin 3.0 Albumin/Globulin Ratio Lipase Urine Color Urine Clarity Urine pH Ur Specific [place] Urine Protein Urine Glucose (UA) Urine Ketones Urine Occult Blood Urine Nitrite Urine Bilirubin Urine Urobilinogen Ur Leukocyte Esterase Urine RBC Urine WBC Ur Squamous Epith Cells Amorphous Sediment Urine Bacteria Urine Mucus Ur Random Sodium Urine Opiates Screen Urine Methadone Screen Acetaminophen Ur Barbiturates Screen Ur Phencyclidine Scrn Ur Amphetamines Screen U Methamphetamin-MDMA U Benzodiazepines Scrn Urine Cocaine Screen U Cannabinoids Screen Ur Drug Screen Comment Ethyl Alcohol Acetone Level Hepatitis A IgM Ab Hep Bs Antigen Hep B Core IgM Ab Hepatitis C Ab (EIA) 07/28/18 07/28/18 07/28/18 05:00 06:35 06:50 WBC 10.1 RBC 3.94 L Hgb 11.4 L Hct 36.5 L MCV 92.6 MCH 28.9 MCHC 31.2 L RDW 14.2 RDW Differential 47.1 H Plt Count 158 MPV 9.7 Immature Gran % (Auto) 0.200 Neut % (Auto) 83.9 H Lymph % (Auto) 9.1 L Crisp % (Auto) 6.4 Eos % (Auto) 0.3 Baso % (Auto) 0.1 Absolute Neuts (auto) 8.4 H Absolute Lymphs (auto) 0.91 Total Counted Not Reportable Differential Comment PT 27.2 H INR 2.5 Specimen Type Sample Site pH Bicarbonate Actual POC Total CO2 Base Excess O2 Saturation ABG pCO2 ABG pO2 Shahbaz Test O2 Delivery Device Liter Flow Blood Gas Notified Whom Blood Gas Notified Time Sodium Potassium Chloride Carbon Dioxide Anion Gap BUN Creatinine Estim Creat Clear Calc Est GFR (MDRD) Af Amer Est GFR (MDRD) Non-Af BUN/Creatinine Ratio Glucose Lactic Acid Calcium Total Bilirubin Direct Bilirubin GGT AST ALT Alkaline Phosphatase Ammonia Troponin I Total Protein Albumin Globulin Albumin/Globulin Ratio Lipase Urine Color Urine Clarity Urine pH Ur Specific [place] Urine Protein Urine Glucose (UA) Urine Ketones Urine Occult Blood Urine Nitrite Urine Bilirubin Urine Urobilinogen Ur Leukocyte Esterase Urine RBC Urine WBC Ur Squamous Epith Cells Amorphous Sediment Urine Bacteria Urine Mucus Ur Random Sodium 55 Urine Opiates Screen Urine Methadone Screen Acetaminophen Ur Barbiturates Screen Ur Phencyclidine Scrn Ur Amphetamines Screen U Methamphetamin-MDMA U Benzodiazepines Scrn Urine Cocaine Screen U Cannabinoids Screen Ur Drug Screen Comment Ethyl Alcohol Acetone Level Hepatitis A IgM Ab Hep Bs Antigen Hep B Core IgM Ab Hepatitis C Ab (EIA) POC Glucose 07/28/18 07/27/18 07/27/18 08:41 21:16 17:10 POC Glucose 131 H 134 H 205 H 07/27/18 10:51 POC Glucose 191 H Assessment/Plan All Active Problems Frequent falls (Acute) Shock, unspecified (Acute) GI bleed (Acute) Acute liver failure (Acute) Coagulopathy (Acute) UTI (urinary tract infection) (Acute) Hepatic encephalopathy (Acute) Acute renal insufficiency (Acute) Acute renal failure (Acute) Lightheadedness (Acute) Unsteady gait (Acute) Headache (Acute) Chest pain (Acute) Weakness of both arms (Resolved) Numbness and tingling of right face (Resolved) Difficulty speaking (Resolved) NSTEMI (non-ST elevated myocardial infarction) (Resolved) Jaw pain (Resolved) GEORGE CKD stage 3 Baseline creatinine is around 1.3 to 1.4. admitted with severe hypotension and multi organ failure. suspected hepatic V thrombosis she is anuric, hyperkalemic and acidotic will need [employer] SERVICE [employer]OCIATE discussed with patient in detail about need for dialysis, procedure of dialysis etc. she is agreeable ICU team to place a line today and will dialyze after she will need CTA to rule hepatic V thrombosis. can get it done after dialysis UA shows some cellular component but she is relatively anuric. past serologies are negative d/w Dr Hollis and Dr Ayala
--- NOTE | 2018-07-28 10:44 | RAD_ITS ---
STUDY: X-RAY CHEST REASON FOR EXAM: Female, 63 years old. Internal jugular dialysis catheter placement. TECHNIQUE: Single AP portable view of the chest. COMPARISON: Comparison is made with prior study dated July 19, 2018. FINDINGS: A right sided internal jugular dialysis catheter has been placed. The tip is in the proximal superior vena cava. A right-sided PICC line catheter is in situ with the tip in the proximal superior vena cava. EKG electrodes are seen. The lungs are clear and expanded. There is no demonstrated pleural abnormality. There is moderate cardiac enlargement. Normal mediastinum and josselin. Normal visualized pulmonary arteries. Normal visualized aortic arch and descending thoracic aorta. Normal visualized thoracic spine. Normal visualized ribs, clavicles, and shoulders. There is no demonstrated abnormality of the visualized soft tissue structures of the upper abdomen. RAD/Chest 1 View (Portable) IMPRESSION: The tip of the right internal jugular dialysis catheter is in the proximal portion of the superior vena cava. Electronically Signed: Doug Brown, at 11:45 EDT , Service support ,
--- NOTE | 2018-07-28 10:48 | CON.PCM_ITS ---
Problem List (1) Acute renal failure Status: Acute Consultation - Renal 07/28/18 PCP/ Referring MD: Requesting physician: Dr Hollis Primary care physician: Crystal Earl Reason for Consultation:: GEORGE - History of Present Illness History of Present Illness: The patient is a 63 year old F who was admitted with generalized weakness for the last few days, bright red bleeding DC for 2 weeks. renal consulted for GEORGE. baseline creatinine is around 1.3 to 1.4. 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 current events - Acute liver injury. LFTs bumped from normal to more than 10,000 in 2 days - elevated troponins - now at 6.1 - acute renal failure - anuric - hypotension - better - lactic acidosis - better with resuscitation history of heavy ETOH use as per charts currently complains of weakness alone. - Allergies Allergies: Allergies duloxetine HCl [From Cymbalta] Adverse Reaction (Verified 07/25/18 09:39) Other morphine Adverse Reaction (Verified 07/25/18 09:39) Itching pramipexole di-HCl [From Mirapex] Adverse Reaction (Verified 07/25/18 09:39) Other Sulfa (Sulfonamide Antibiotics) Adverse Reaction (Verified 07/25/18 09:39) Unknown tramadol HCl [From Ultram] Adverse Reaction (Verified 07/25/18 09:39) Itching varenicline [From Chantix] Adverse Reaction (Verified 07/25/18 09:39) Unknown - Current Medications Current Medications: Current Medications Chlorhexidine Gluconate () 1 each TOPICAL DAILY NELIDA Last Admin: 07/28/18 09:44 Dose: 1 each Heparin Sodium (Porcine) () 2,500 units IV UD PRN PRN Reason: HEPARIN FLUSH Sodium Chloride () 250 mls @ 15 mls/hr IV .[id number] PRN PRN Reason: SALINE FLUSH Last Admin: 07/27/18 21:44 Dose: 15 mls/hr Acetylcysteine 5,000 mg/ (Dextrose) 525 mls @ 125 mls/hr IV X1 ONE Stop: 07/28/18 14:21 Acetylcysteine 10,000 mg/ (Dextrose) 1,050 mls @ 62.5 mls/hr IV X1 ONE Stop: 07/29/18 07:17 Pantoprazole Sodium 40 mg/ (Sodium Chloride) 110 mls @ 330 mls/hr IV Q24 [facility] Ceftriaxone Sodium 2 gm/ (Sodium Chloride) 50 mls @ 100 mls/hr IV Q24 [facility] Last Admin: 07/28/18 09:44 Dose: 100 mls/hr Insulin Human Lispro (Humalog Kwikpen (Bkc)) 0 unit SC ACHS [facility]; Protocol Last Admin: 07/28/18 08:42 Dose: Not Given Metoprolol Tartrate (Lopressor (Beta Denis)) 25 mg PO BID [facility] Last Admin: 07/28/18 09:50 Dose: 25 mg Nitroglycerin (Nitrostat) 0.4 mg SUBLINGUAL Q5M PRN PRN Reason: CARDIAC/CHEST PAIN Nutritional Formula (Lactose Free) (Glucerna Shake) 120 ml PO 4X/DAY [facility] Last Admin: 07/28/18 09:44 Dose: Not Given Nystatin (Mycostatin Powder) 1 applic TOPICAL 4X/DAY [facility] Last Admin: 07/28/18 09:51 Dose: 1 applicatio Ondansetron HCl (Zofran) 4 mg IV Q8H PRN PRN PRN Reason: NAUSEA Oxycodone HCl (Oxyir) 5 - 10 mg PO Q6H PRN PRN PRN Reason: SEVERE PAIN (6-10/10) Last Admin: 07/27/18 23:37 Dose: 10 mg Sodium Chloride () 5 - 15 ml IV UD PRN PRN Reason: SALINE FLUSH Sodium Chloride () 10 - 40 ml IV UD PRN PRN Reason: MULTILUMEN/HICMAN CATH FLUSH Sodium Chloride () 10 ml IV UD PRN PRN Reason: Dialysis Catheter Flush Triamcinolone Acetonide (Triamcinolone Acetonide) 1 applic TOPICAL BID PRN PRN Reason: RASH/TOPICAL IRRITATION - Past Medical History Past Medical History (Chronic Problems): Chronic Problems Cardiomyopathy (Chronic) HTN (hypertension) (Chronic) Tobacco use disorder (Chronic) Esophageal reflux (Chronic) Depressive disorder (Chronic) Back ache (Chronic) Irritable bowel syndrome (IBS) (Chronic) Anxiety disorder (Chronic) - Past Surgical History Surgical History: noncontributory, - - Uterine suspension, coronary artery stent placement - Social History Smoking Status: Current every day smoker Alcohol: Occasional - Uncertain the amount - Family History Maternal History Items: No pertinent history - Patient was adopted Paternal History Items: No pertinent history - Was adopted Review of Systems Constitutional: Denies: Chills, Fever, Weight Change HEENT: Denies: Head Aches, Sinus Congestion, Sinus Drainage Cardiovascular: Denies: Chest Pain, Palpitations Respiratory: Denies: Cough, Shortness of breath at rest, Sputum production Gastrointestinal: Denies: Abdominal Pain, Nausea, Vomiting Genitourinary: Denies: Dysuria Musculoskeletal: Denies: Joint Pain, Joint Tenderness Skin: Denies: Rash, Wounds Neurological: Denies: Numbness, Tingling, Focal weakness Psychiatric: Denies: Anxiety, Depression, Homicidal Ideations, Suicidal Ideations Hematologic/ Lymphatic: Denies: Easy Bruising, Easy Bleeding Patient Problems: Active and Suspected Problems Shock, unspecified (Acute) GI bleed (Acute) Acute liver failure (Acute) Coagulopathy (Acute) UTI (urinary tract infection) (Acute) Hepatic encephalopathy (Acute) Acute renal insufficiency (Acute) Acute renal failure (Acute) - Physical Exam General: Alert, Oriented x3, Cooperative HEENT: Atraumatic, PERRLA, EOMI, Normocephalic Neck: Supple, No JVD, Negative Carotid Bruits Lungs: Clear to auscultation, Normal air movement Cardiovascular: Regular rate, No murmurs Abdomen: Bowel Sounds Present, Soft, Non Tender Extremities: No edema, Capillary Refill Less than 3 Seconds Skin: No rashes, No breakdown Musculoskeletal: No Tenderness to Palpation of Joints or Extremities Neurological: Cranial nerves II-XII grossly intact Psych/Mental Status: Normal Affect, Appropriate Vital Signs Temp Pulse Resp BP Pulse Ox 98 F 90 19 H 153/67 H 95 07/28/18 08:00 07/28/18 10:00 07/28/18 10:00 07/28/18 10:07/28/18 10:00 Oxygen Flow Rate (L/min) 2 Oxygen Delivery Method Nasal Cannula Weight: 105.6 kg Body Mass Index (BMI) 33.5 Finger Stick Blood Glucose 199 Intake and Output for Last 24 Hours 07/26/18 07/27/18 07/28/18 23:59 23:59 23:59 Intake Total 1464.9 / 1464.9 835.8 / 835.8 Output Total 105 / 105 30 / 30 Balance 1359.9 / 1359.9 805.8 / 805.8 Microbiology Past 72 Hours 07/27/18 14:55 Respiratory Panel (PCR) - Final Mucosa - Nasopharyngeal Laboratory Tests Past 24 Hrs 07/27/18 07/27/18 07/27/18 10:30 10:30 10:30 WBC 14.5 H RBC 4.16 L Hgb 12.0 Hct 38.5 MCV 92.5 MCH 28.8 MCHC 31.2 L RDW 14.6 RDW Differential 48.7 H Plt Count 223 MPV 10.1 Immature Gran % (Auto) 0.400 Neut % (Auto) 86.8 H Lymph % (Auto) 3.9 L [place] % (Auto) 8.8 Eos % (Auto) 0.0 Baso % (Auto) 0.1 Absolute Neuts (auto) 12.6 H Absolute Lymphs (auto) 0.56 L Total Counted Not Reportable Differential Comment COMMENT PT 27.7 H INR 2.6 Specimen Type Sample Site pH Bicarbonate Actual POC Total CO2 Base Excess O2 Saturation ABG pCO2 ABG pO2 Shahbaz Test O2 Delivery Device Liter Flow Blood Gas Notified Whom Blood Gas Notified Time Sodium 133 L Potassium 6.3 H* Chloride 99 Carbon Dioxide 23.0 Anion Gap 11 BUN 33 H Creatinine 2.94 H Estim Creat Clear Calc 19.94 Est GFR (MDRD) Af Amer 21 L Est GFR (MDRD) Non-Af 17 L BUN/Creatinine Ratio 11.2 Glucose 166 H Lactic Acid Calcium 7.6 L Total Bilirubin 2.30 H Direct Bilirubin G[place] AST 68996 H ALT 4541 H Alkaline Phosphatase 150 H Ammonia Troponin I 0.504 H Total Protein 6.6 Albumin 3.2 Globulin 3.4 Albumin/Globulin Ratio 0.9 Lipase 81 Urine Color Urine Clarity Urine pH Ur Specific [place] Urine Protein Urine Glucose (UA) Urine Ketones Urine Occult Blood Urine Nitrite Urine Bilirubin Urine Urobilinogen Ur Leukocyte Esterase Urine RBC Urine WBC Ur Squamous Epith Cells Amorphous Sediment Urine Bacteria Urine Mucus Ur Random Sodium Urine Opiates Screen Urine Methadone Screen Acetaminophen Ur Barbiturates Screen Ur Phencyclidine Scrn Ur Amphetamines Screen U Methamphetamin-MDMA U Benzodiazepines Scrn Urine Cocaine Screen U Cannabinoids Screen Ur Drug Screen Comment Ethyl Alcohol Acetone Level Hepatitis A IgM Ab Hep Bs Antigen Hep B Core IgM Ab Hepatitis C Ab (EIA) 07/27/18 07/27/18 07/27/18 10:30 10:30 10:30 WBC RBC Hgb Hct MCV MCH MCHC RDW RDW Differential Plt Count MPV Immature Gran % (Auto) Neut % (Auto) Lymph % (Auto) [place] % (Auto) Eos % (Auto) Baso % (Auto) Absolute Neuts (auto) Absolute Lymphs (auto) Total Counted Differential Comment PT INR Specimen Type Sample Site pH Bicarbonate Actual POC Total CO2 Base Excess O2 Saturation ABG pCO2 ABG pO2 Shahbaz Test O2 Delivery Device Liter Flow Blood Gas Notified Whom Blood Gas Notified Time Sodium Potassium Chloride Carbon Dioxide Anion Gap BUN Creatinine Estim Creat Clear Calc Est GFR (MDRD) Af Amer Est GFR (MDRD) Non-Af BUN/Creatinine Ratio Glucose Lactic Acid 4.5 H* Calcium Total Bilirubin Direct Bilirubin GGT AST ALT Alkaline Phosphatase Ammonia Troponin I Total Protein Albumin Globulin Albumin/Globulin Ratio Lipase Urine Color Urine Clarity Urine pH Ur Specific [place] Urine Protein Urine Glucose (UA) Urine Ketones Urine Occult Blood Urine Nitrite Urine Bilirubin Urine Urobilinogen Ur Leukocyte Esterase Urine RBC Urine WBC Ur Squamous Epith Cells Amorphous Sediment Urine Bacteria Urine Mucus Ur Random Sodium Urine Opiates Screen Urine Methadone Screen Acetaminophen Ur Barbiturates Screen Ur Phencyclidine Scrn Ur Amphetamines Screen U Methamphetamin-MDMA U Benzodiazepines Scrn Urine Cocaine Screen U Cannabinoids Screen Ur Drug Screen Comment Ethyl Alcohol 11.0 Acetone Level NEGATIVE Hepatitis A IgM Ab Hep Bs Antigen Hep B Core IgM Ab Hepatitis C Ab (EIA) 07/27/18 07/27/18 07/27/18 11:27 12:04 13:45 WBC RBC Hgb Hct MCV MCH MCHC RDW RDW Differential Plt Count MPV Immature Gran % (Auto) Neut % (Auto) Lymph % (Auto) [place] % (Auto) Eos % (Auto) Baso % (Auto) Absolute Neuts (auto) Absolute Lymphs (auto) Total Counted Differential Comment PT INR Specimen Type ART Sample Site R Radial pH 7.29 L Bicarbonate Actual 20.6 L POC Total CO2 22 Base Excess -6 L O2 Saturation 94 L ABG pCO2 42.5 ABG pO2 79 Shahbaz Test POS O2 Delivery Device Nasal Can Liter Flow 4.0 Blood Gas Notified Whom ED Blood Gas Notified Time 1126 Sodium Potassium Chloride Carbon Dioxide Anion Gap BUN Creatinine Estim Creat Clear Calc Est GFR (MDRD) Af Amer Est GFR (MDRD) Non-Af BUN/Creatinine Ratio Glucose Lactic Acid Calcium Total Bilirubin Direct Bilirubin GGT AST ALT Alkaline Phosphatase Ammonia Troponin I Total Protein Albumin Globulin Albumin/Globulin Ratio Lipase Urine Color Yellow Urine Clarity Sl. Cloudy Urine pH 5.0 Ur Specific [place] 1.025 Urine Protein 100 H Urine Glucose (UA) Normal Urine Ketones 5 H Urine Occult Blood 250 H Urine Nitrite Negative Urine Bilirubin 3 H Urine Urobilinogen 4 H Ur Leukocyte Esterase 100 H Urine RBC 25-50 SEEN Urine WBC 10-25 SEEN Ur Squamous Epith Cells 0-5 SEEN Amorphous Sediment 2+ Urine Bacteria 1+ Urine Mucus 0 SEEN Ur Random Sodium Urine Opiates Screen Urine Methadone Screen Acetaminophen < 2.0 L Ur Barbiturates Screen Ur Phencyclidine Scrn Ur Amphetamines Screen U Methamphetamin-MDMA U Benzodiazepines Scrn Urine Cocaine Screen U Cannabinoids Screen Ur Drug Screen Comment Ethyl Alcohol Acetone Level Hepatitis A IgM Ab Hep Bs Antigen Hep B Core IgM Ab Hepatitis C Ab (EIA) 07/27/18 07/27/18 07/27/18 13:45 13:45 13:45 WBC RBC Hgb Hct MCV MCH MCHC RDW RDW Differential Plt Count MPV Immature Gran % (Auto) Neut % (Auto) Lymph % (Auto) [place] % (Auto) Eos % (Auto) Baso % (Auto) Absolute Neuts (auto) Absolute Lymphs (auto) Total Counted Differential Comment PT INR Specimen Type Sample Site pH Bicarbonate Actual POC Total CO2 Base Excess O2 Saturation ABG pCO2 ABG pO2 Shahbaz Test O2 Delivery Device Liter Flow Blood Gas Notified Whom Blood Gas Notified Time Sodium Potassium Chloride Carbon Dioxide Anion Gap BUN Creatinine Estim Creat Clear Calc Est GFR (MDRD) Af Amer Est GFR (MDRD) Non-Af BUN/Creatinine Ratio Glucose Lactic Acid Calcium Total Bilirubin Direct Bilirubin GGT 69 H AST ALT Alkaline Phosphatase Ammonia 51.0 H Troponin I Total Protein Albumin Globulin Albumin/Globulin Ratio Lipase Urine Color Urine Clarity Urine pH Ur Specific [place] Urine Protein Urine Glucose (UA) Urine Ketones Urine Occult Blood Urine Nitrite Urine Bilirubin Urine Urobilinogen Ur Leukocyte Esterase Urine RBC Urine WBC Ur Squamous Epith Cells Amorphous Sediment Urine Bacteria Urine Mucus Ur Random Sodium Urine Opiates Screen Urine Methadone Screen Acetaminophen Ur Barbiturates Screen Ur Phencyclidine Scrn Ur Amphetamines Screen U Methamphetamin-MDMA U Benzodiazepines Scrn Urine Cocaine Screen U Cannabinoids Screen Ur Drug Screen Comment Ethyl Alcohol Acetone Level Hepatitis A IgM Ab Pending Hep Bs Antigen Pending Hep B Core IgM Ab Pending Hepatitis C Ab (EIA) Pending 07/27/18 07/27/18 07/27/18 13:45 14:30 15:55 WBC RBC Hgb Hct MCV MCH MCHC RDW RDW Differential Plt Count MPV Immature Gran % (Auto) Neut % (Auto) Lymph % (Auto) [place] % (Auto) Eos % (Auto) Baso % (Auto) Absolute Neuts (auto) Absolute Lymphs (auto) Total Counted Differential Comment PT INR Specimen Type Sample Site pH Bicarbonate Actual POC Total CO2 Base Excess O2 Saturation ABG pCO2 ABG pO2 Shahbaz Test O2 Delivery Device Liter Flow Blood Gas Notified Whom Blood Gas Notified Time Sodium 135 L Potassium 5.5 H Chloride 104 Carbon Dioxide 22.0 Anion Gap 9 BUN 34 H Creatinine 2.80 H Estim Creat Clear Calc 20.93 Est GFR (MDRD) Af Amer 22 L Est GFR (MDRD) Non-Af 18 L BUN/Creatinine Ratio 12.1 Glucose 221 H Lactic Acid 2.6 H Calcium 6.6 L Total Bilirubin Direct Bilirubin GGT AST ALT Alkaline Phosphatase Ammonia Troponin I Total Protein Albumin Globulin Albumin/Globulin Ratio Lipase Urine Color Urine Clarity Urine pH Ur Specific [place] Urine Protein Urine Glucose (UA) Urine Ketones Urine Occult Blood Urine Nitrite Urine Bilirubin Urine Urobilinogen Ur Leukocyte Esterase Urine RBC Urine WBC Ur Squamous Epith Cells Amorphous Sediment Urine Bacteria Urine Mucus Ur Random Sodium Urine Opiates Screen POSITIVE H Urine Methadone Screen NEGATIVE Acetaminophen Ur Barbiturates Screen NEGATIVE Ur Phencyclidine Scrn NEGATIVE Ur Amphetamines Screen NEGATIVE U Methamphetamin-MDMA NEGATIVE U Benzodiazepines Scrn NEGATIVE Urine Cocaine Screen NEGATIVE U Cannabinoids Screen POSITIVE H Ur Drug Screen Comment Ethyl Alcohol Acetone Level Hepatitis A IgM Ab Hep Bs Antigen Hep B Core IgM Ab Hepatitis C Ab (EIA) 07/28/18 07/28/18 07/28/18 04:30 04:30 04:30 WBC RBC Hgb Hct MCV MCH MCHC RDW RDW Differential Plt Count MPV Immature Gran % (Auto) Neut % (Auto) Lymph % (Auto) [place] % (Auto) Eos % (Auto) Baso % (Auto) Absolute Neuts (auto) Absolute Lymphs (auto) Total Counted Differential Comment PT INR Specimen Type Sample Site pH Bicarbonate Actual POC Total CO2 Base Excess O2 Saturation ABG pCO2 ABG pO2 Shahbaz Test O2 Delivery Device Liter Flow Blood Gas Notified Whom Blood Gas Notified Time Sodium 138 Potassium 5.6 H Chloride 106 Carbon Dioxide 23.0 Anion Gap 9 BUN 43 H Creatinine 3.71 H Estim Creat Clear Calc 15.80 Est GFR (MDRD) Af Amer 16 L Est GFR (MDRD) Non-Af 13 L BUN/Creatinine Ratio 11.6 Glucose 128 H Lactic Acid Calcium 7.1 L Total Bilirubin 1.30 H Direct Bilirubin 0.67 H GGT AST 47971 H ALT 5681 H Alkaline Phosphatase 170 H Ammonia Troponin I 6.170 H* Total Protein 6.0 L Albumin 3.0 L Globulin 3.0 Albumin/Globulin Ratio Lipase Urine Color Urine Clarity Urine pH Ur Specific [place] Urine Protein Urine Glucose (UA) Urine Ketones Urine Occult Blood Urine Nitrite Urine Bilirubin Urine Urobilinogen Ur Leukocyte Esterase Urine RBC Urine WBC Ur Squamous Epith Cells Amorphous Sediment Urine Bacteria Urine Mucus Ur Random Sodium Urine Opiates Screen Urine Methadone Screen Acetaminophen Ur Barbiturates Screen Ur Phencyclidine Scrn Ur Amphetamines Screen U Methamphetamin-MDMA U Benzodiazepines Scrn Urine Cocaine Screen U Cannabinoids Screen Ur Drug Screen Comment Ethyl Alcohol Acetone Level Hepatitis A IgM Ab Hep Bs Antigen Hep B Core IgM Ab Hepatitis C Ab (EIA) 07/28/18 07/28/18 07/28/18 05:00 06:35 06:50 WBC 10.1 RBC 3.94 L Hgb 11.4 L Hct 36.5 L MCV 92.6 MCH 28.9 MCHC 31.2 L RDW 14.2 RDW Differential 47.1 H Plt Count 158 MPV 9.7 Immature Gran % (Auto) 0.200 Neut % (Auto) 83.9 H Lymph % (Auto) 9.1 L [place] % (Auto) 6.4 Eos % (Auto) 0.3 Baso % (Auto) 0.1 Absolute Neuts (auto) 8.4 H Absolute Lymphs (auto) 0.91 Total Counted Not Reportable Differential Comment PT 27.2 H INR 2.5 Specimen Type Sample Site pH Bicarbonate Actual POC Total CO2 Base Excess O2 Saturation ABG pCO2 ABG pO2 Shahbaz Test O2 Delivery Device Liter Flow Blood Gas Notified Whom Blood Gas Notified Time Sodium Potassium Chloride Carbon Dioxide Anion Gap BUN Creatinine Estim Creat Clear Calc Est GFR (MDRD) Af Amer Est GFR (MDRD) Non-Af BUN/Creatinine Ratio Glucose Lactic Acid Calcium Total Bilirubin Direct Bilirubin GGT AST ALT Alkaline Phosphatase Ammonia Troponin I Total Protein Albumin Globulin Albumin/Globulin Ratio Lipase Urine Color Urine Clarity Urine pH Ur Specific [place] Urine Protein Urine Glucose (UA) Urine Ketones Urine Occult Blood Urine Nitrite Urine Bilirubin Urine Urobilinogen Ur Leukocyte Esterase Urine RBC Urine WBC Ur Squamous Epith Cells Amorphous Sediment Urine Bacteria Urine Mucus Ur Random Sodium 55 Urine Opiates Screen Urine Methadone Screen Acetaminophen Ur Barbiturates Screen Ur Phencyclidine Scrn Ur Amphetamines Screen U Methamphetamin-MDMA U Benzodiazepines Scrn Urine Cocaine Screen U Cannabinoids Screen Ur Drug Screen Comment Ethyl Alcohol Acetone Level Hepatitis A IgM Ab Hep Bs Antigen Hep B Core IgM Ab Hepatitis C Ab (EIA) POC Glucose 07/28/18 07/27/18 07/27/18 08:41 21:16 17:10 POC Glucose 131 H 134 H 205 H 07/27/18 10:51 POC Glucose 191 H Assessment/Plan All Active Problems Frequent falls (Acute) Shock, unspecified (Acute) GI bleed (Acute) Acute liver failure (Acute) Coagulopathy (Acute) UTI (urinary tract infection) (Acute) Hepatic encephalopathy (Acute) Acute renal insufficiency (Acute) Acute renal failure (Acute) Lightheadedness (Acute) Unsteady gait (Acute) Headache (Acute) Chest pain (Acute) Weakness of both arms (Resolved) Numbness and tingling of right face (Resolved) Difficulty speaking (Resolved) NSTEMI (non-ST elevated myocardial infarction) (Resolved) Jaw pain (Resolved) GEORGE CKD stage 3 Baseline creatinine is around 1.3 to 1.4. admitted with severe hypotension and multi organ failure. suspected hepatic V thrombosis she is anuric, hyperkalemic and acidotic will need [employer] discussed with patient in detail about need for dialysis, procedure of dialysis etc. she is agreeable ICU team to place a line today and will dialyze after she will need CTA to rule hepatic V thrombosis. can get it done after dialysis UA shows some cellular component but she is relatively anuric. past serologies are negative d/w Dr Hollis and Dr Ayala
--- NOTE | 2018-07-28 10:52 | PCM.OPRPT ---
Report of Operation Date of Procedure: 07/28/18 Surgery/Procedure Performed:: Temporary dialysis catheter insertion Description of Surgical Findings:: Temporary dialysis catheter insertion note Indication: Hemodialysis Procedure: A time-out was completed to verify correct patient, indication, medication allergies, procedure, coagulation studies, informed consent signed, and equipment needed. The patient was placed in the supine position for a central line placement to the rt IJ r vein. The patients rt neck was prepped using chlorhexidine and a full body sterile drape was applied. 1% lidocaine was used to anesthetize the surrounding skin. A 12fr 20 cm marhaker temporary dialysis catheter introduced into the internal jugular vein using the modified Seldinger technique with the assistance of ultrasound. The catheter was threaded smoothly over the guidewire, the site was dilated twice up in a stepwise fashion, the guidewire was removed easily, nonpulsatile blood returned. All ports were aspirated of air and flushed with sterile saline then locked with U 1000 heparin 1.3 mL's to each port. The catheter was sutured in place and covered with an occlusive dressing impregnated with chlorhexidine. Post-procedure: The patient tolerated the procedure well. Vital signs remained stable. EBL 8 cc. No complications. Chest X Ray ordered to confirm tip placement and the absence of pneumothorax.
[2018-07-28] MEDS: Insulin Lispro 100 UNIT/ML INSULN.PEN SC (11:31)
[2018-07-28 11:35] LABS: Bedside Glucose 164 mg/dL (70-110)
[2018-07-28 14:46] LABS: Hep C Antibodies <0.1 s/co ratio (0.0-0.9)
[2018-07-28 17:11] LABS: AST(SGOT) 5685 U/L (15-37); Alanine Aminotransfer ALT/SGPT 4381 U/L (13-56); Albumin, Serum 2.6 g/dL (3.2-5.0); Alkaline Phosphatase 165 U/L (45-117); Bilirubin, Direct 0.62 mg/dL (0.00-0.30); Protein, Total 5.6 g/dL (6.4-8.2)
--- NOTE | 2018-07-28 17:59 | PN.SURG_ITS ---
Patient Problems: Active and Suspected Problems Shock, unspecified (Acute) GI bleed (Acute) Acute liver failure (Acute) Coagulopathy (Acute) UTI (urinary tract infection) (Acute) Hepatic encephalopathy (Acute) Acute renal insufficiency (Acute) Acute renal failure (Acute) Subjective: the patient denies tremors. She is still worried about impending DTs. She is concerned about her overall prognosis. She denies further GI bleeding - Physical Exam General: Cooperative, No apparent distress Lungs: Clear to auscultation, Normal air movement Cardiovascular: Regular rate, Regular Rhythm, - - distant Abdomen: Soft, Non Tender, Hypoactive Bowel Sounds Vital Signs Temp Pulse Resp BP Pulse Ox 98.5 F 85 23 H 162/76 H 96 07/28/18 16:47 07/28/18 16:47 07/28/18 16:47 07/28/18 16:47 07/28/18 16:47 Oxygen Flow Rate (L/min) 2 Oxygen Delivery Method Nasal Cannula Weight: 105.6 kg Body Mass Index (BMI) 33.5 Finger Stick Blood Glucose 199 Intake and Output for Last 24 Hours 07/26/18 07/27/18 07/28/18 23:59 23:59 23:59 Intake Total 1464.9 / 1464.9 1635.8 / 1635.8 Output Total 105 / 105 50 / 50 Balance 1359.9 / 1359.9 1585.8 / 1585.8 Microbiology Past 72 Hours 07/27/18 14:55 Respiratory Panel (PCR) - Final Mucosa - Nasopharyngeal Laboratory Tests Past 24 Hrs 07/27/18 07/28/18 07/28/18 13:45 04:30 04:30 WBC RBC Hgb Hct MCV MCH MCHC RDW RDW Differential Plt Count MPV Immature Gran % (Auto) Neut % (Auto) Lymph % (Auto) [place] % (Auto) Eos % (Auto) Baso % (Auto) Absolute Neuts (auto) Absolute Lymphs (auto) Total Counted PT INR Sodium 138 Potassium 5.6 H Chloride 106 Carbon Dioxide 23.0 Anion Gap 9 BUN 43 H Creatinine 3.71 H Estim Creat Clear Calc 15.80 Est GFR (MDRD) Af Amer 16 L Est GFR (MDRD) Non-Af 13 L BUN/Creatinine Ratio 11.6 Glucose 128 H Calcium 7.1 L Total Bilirubin 1.30 H Direct Bilirubin 0.67 H AST 86464 H ALT 5681 H Alkaline Phosphatase 170 H Ammonia Troponin I Total Protein 6.0 L Albumin 3.0 L Globulin 3.0 Ur Random Sodium Hepatitis A IgM Ab Negative Hep Bs Antigen Negative Hep B Core Total Ab Hep B Core IgM Ab Negative Hepatitis C Ab (EIA) <0.1 07/28/18 07/28/18 07/28/18 04:30 05:00 06:35 WBC 10.1 RBC 3.94 L Hgb 11.4 L Hct 36.5 L MCV 92.6 MCH 28.9 MCHC 31.2 L RDW 14.2 RDW Differential 47.1 H Plt Count 158 MPV 9.7 Immature Gran % (Auto) 0.200 Neut % (Auto) 83.9 H Lymph % (Auto) 9.1 L [place] % (Auto) 6.4 Eos % (Auto) 0.3 Baso % (Auto) 0.1 Absolute Neuts (auto) 8.4 H Absolute Lymphs (auto) 0.91 Total Counted Not Reportable PT 27.2 H INR 2.5 Sodium Potassium Chloride Carbon Dioxide Anion Gap BUN Creatinine Estim Creat Clear Calc Est GFR (MDRD) Af Amer Est GFR (MDRD) Non-Af BUN/Creatinine Ratio Glucose Calcium Total Bilirubin Direct Bilirubin AST ALT Alkaline Phosphatase Ammonia Troponin I 6.170 H* Total Protein Albumin Globulin Ur Random Sodium Hepatitis A IgM Ab Hep Bs Antigen Hep B Core Total Ab Hep B Core IgM Ab Hepatitis C Ab (EIA) 07/28/18 07/28/18 07/28/18 06:50 11:30 14:00 WBC RBC Hgb Hct MCV MCH MCHC RDW RDW Differential Plt Count MPV Immature Gran % (Auto) Neut % (Auto) Lymph % (Auto) [place] % (Auto) Eos % (Auto) Baso % (Auto) Absolute Neuts (auto) Absolute Lymphs (auto) Total Counted PT INR Sodium Potassium Chloride Carbon Dioxide Anion Gap BUN Creatinine Estim Creat Clear Calc Est GFR (MDRD) Af Amer Est GFR (MDRD) Non-Af BUN/Creatinine Ratio Glucose Calcium Total Bilirubin Direct Bilirubin AST ALT Alkaline Phosphatase Ammonia 41.0 H Troponin I Total Protein Albumin Globulin Ur Random Sodium 55 Hepatitis A IgM Ab Hep Bs Antigen Pending Hep B Core Total Ab Hep B Core IgM Ab Hepatitis C Ab (EIA) 07/28/18 07/28/18 07/28/18 14:00 15:50 15:50 WBC RBC Hgb Hct MCV MCH MCHC RDW RDW Differential Plt Count MPV Immature Gran % (Auto) Neut % (Auto) Lymph % (Auto) [place] % (Auto) Eos % (Auto) Baso % (Auto) Absolute Neuts (auto) Absolute Lymphs (auto) Total Counted PT INR Sodium Potassium Chloride Carbon Dioxide Anion Gap BUN Creatinine Estim Creat Clear Calc Est GFR (MDRD) Af Amer Est GFR (MDRD) Non-Af BUN/Creatinine Ratio Glucose Calcium Total Bilirubin 1.10 H Direct Bilirubin 0.62 H AST 5685 H ALT 4381 H Alkaline Phosphatase 165 H Ammonia Troponin I 3.520 H* Total Protein 5.6 L Albumin 2.6 L Globulin 3.0 Ur Random Sodium Hepatitis A IgM Ab Hep Bs Antigen Hep B Core Total Ab Pending Hep B Core IgM Ab Hepatitis C Ab (EIA) POC Glucose 07/28/18 07/28/18 07/27/18 11:26 08:41 21:16 POC Glucose 164 H 131 H 134 H Medical Necessity - Tobacco Use Smoking Status: Current every day smoker Tobacco Use: Cigarettes Assessment/Plan All Active Problems Frequent falls (Acute) Shock, unspecified (Acute) GI bleed (Acute) Acute liver failure (Acute) Coagulopathy (Acute) UTI (urinary tract infection) (Acute) Hepatic encephalopathy (Acute) Acute renal insufficiency (Acute) Acute renal failure (Acute) Lightheadedness (Acute) Unsteady gait (Acute) Headache (Acute) Chest pain (Acute) Weakness of both arms (Resolved) Numbness and tingling of right face (Resolved) Difficulty speaking (Resolved) NSTEMI (non-ST elevated myocardial infarction) (Resolved) Jaw pain (Resolved) acute liver injury-likely secondary to alcohol abuse and steatohepatitis, lower GI bleeding, Electrolyte abnormalities, dehydration, hypotension The patient is currently admitted to the ICU. She has a central catheter placed. She is being resuscitated. her liver transaminases continue to increase with relatively normal bilirubin and alkaline phosphatase.CT scan of the abdomen with contrast demonstrated no portal vein thrombosis or hepatic vein thrombosis. Etiology is likely a combination of alcoholic hepatitis and steatohepatitis. I understand hepatitis profile is currently pending. Patient had significantly low urine output overnight. questionable hepatorenal syndrome? Dialysis catheter placed and patient will be undergoing dialysis as her BUN/creatinine of increased and she has been oliguric overnight. Hemoglobin stable-no further GI bleeding noted-we will hold endoscopy for now we'll above issues are addressed in this patient actively bleeding. Elevated troponins-cardiology on service Hypokalemia, electrode abnormalities-adjusting per ICU service
[2018-07-28 18:31] LABS: Bedside Glucose 111 mg/dL (70-110)
[2018-07-28] MEDS: Heparin 10,000 UNITS/10 ML Vial IV (18:33)
[2018-07-29] VITALS (26 sets, daily range): BP systolic 145–170; BP diastolic 64–107; PULSE 81–94; RESP 15–24; TEMP 36.1–37.1; O2SAT 90–99
[2018-07-29 02:06] LABS: Bedside Glucose 112 mg/dL (70-110)
[2018-07-29 04:41] LABS: Absolute Lymphocyte Count 0.64 X10^3/ul (0.83-4.51); Absolute Neutrophil Count 6.3 X10^3/uL (2.0-7.7); Basophil# 0.01 X10^3/uL; Basophil% 0.1 % (0-1); Eosinophil# 0.05 X10^3/uL; Eosinophils% 0.7 % (0-5); Hematocrit 32.9 % (37-47); Hemoglobin 10.5 g/dl (12.0-15.0); Lymphocyte # 0.64 X10^3/ul (4.0); Lymphocyte % 8.7 % (19-41); Mean Corp Hgb Conc 31.9 g/gl (32-36); Mean Corpuscular Hgb 28.2 pg (27.0-32.0); Mean Corpuscular Volume 88.2 fL (81-99); Mean Platelet Vol. 10.1 fl (6.2-12.0); Monocyte# 0.38 X10^3/uL; Monocyte% 5.1 % (0-10); Neutrophil # 6.29 X10^3/uL (2.7-7.7); Neutrophil % 85.1 % (47-70); Platelet Count 134 K/mm3 (150-450); RBC Distribution Width CV 14.2 % (11.6-14.6); RBC Distribution Width SD 44.2 fl (35.1-43.9); Red Blood Count 3.73 M/mm3 (4.2-5.4); White Blood Count 7.4 K/mm3 (4.4-11.0)
[2018-07-29 04:45] LABS: POSITIVE COUNT NO; POSITIVE DIFFERENTIAL NO; POSITIVE MORPHOLOGY NO
[2018-07-29 04:46] LABS: International Normalized Ratio 2.4; Prothrombin Time (Protime)PT. 26.1 SECONDS (11.7-14.9)
[2018-07-29 05:08] LABS: AST(SGOT) 2544 U/L (15-37); Alanine Aminotransfer ALT/SGPT 3416 U/L (13-56); Albumin, Serum 2.7 g/dL (3.2-5.0); Alkaline Phosphatase 193 U/L (45-117); BUN 34 mg/dL (7-18); BUN/Creat Ratio 8.9 RATIO (10-20); Bilirubin, Direct 0.73 mg/dL (0.00-0.30); Calcium,Total 7.6 mg/dL (8.5-10.1); Chloride 101 mmol/L (98-107); EST Glomerular Filtration Rate 13 mL/min (>60); Est Glom Filt Rate - Afr Amer 15 mL/min (>60); Estimated Creatinine Clearance 15.42 ml/min; Globulin 2.7 g/dL (2.2-4.2); Glucose 107 mg/dL (74-106); Phosphorus 5.2 mg/dL (2.5-4.9); Potassium 3.9 mmol/L (3.5-5.1); Protein, Total 5.4 g/dL (6.4-8.2); Sodium Level 141 mmol/L (136-145)
--- NOTE | 2018-07-29 06:05 | PCM.PN.INT ---
Subjective: The patient was seen and examined at the bedside this morning. Events from the last 24 hours have been reviewed. The patient is currently afebrile, hemodynamically stable and maintaining appropriate oxygen saturations on 2 L/min via nasal cannula. The patient underwent her first hemodialysis session yesterday and tolerated it well. The patient's transaminase levels are improving. The patient's mentation seems improved this morning. She denies the presence of abdominal pain or shortness of breath. She is requesting ice chips. Objective: The patient's most recent lab work, culture data and imaging studies have all been personally reviewed. Respiratory viral panel was negative. Blood and urine cultures are pending. Head CT revealed chronic involutional changes of the brain. Abdominal ultrasound revealed an enlarged fatty liver with mild pericholecystic fluid. Surface echocardiogram from August 2015 revealed mild concentric LVH with an ejection fraction of 45% and moderate global hypokinesis of the LV. CT abdomen revealed small right pleural effusion. The portal vein as well as the hepatic veins were patent. A repeat surface echocardiogram confirmed mild segmental systolic dysfunction with an ejection fraction of 45%. Right ventricular systolic pressure was estimated to be 71 mmHg. There was also evidence of diastolic dysfunction. General: Alert, Cooperative, No apparent distress HEENT: Atraumatic, PERRLA, Normocephalic Oral: No Gingival or Mucosal Lesions/ Ulcerations Neck: Supple, No Nodes, Trachea Midline, - - Right IJ temporary hemodialysis catheter in place. Lungs: No rhonchi, No wheeze, No rales, Diminished Cardiovascular: Regular rate, Regular Rhythm, Normal S1, Normal S2, No murmurs Abdomen: Bowel Sounds Present, Soft, Non Tender, Obese Extremities: No clubbing, No cyanosis, Edema Skin: No breakdown Musculoskeletal: No Tenderness to Palpation of Joints or Extremities Lymphatic: No Cervical, Supraclavicular, or Inguinal Adenopathy Neurological: Cranial nerves II-XII grossly intact, Neuro grossly intact Psych/Mental Status: Normal Affect, Appropriate Vital Signs Temp Pulse Resp BP Pulse Ox 36.4 C L 83 20 H 165/71 H 90 07/29/18 00:00 07/29/18 05:00 07/29/18 05:00 07/29/18 05:00 07/29/18 05:00 Oxygen Flow Rate (L/min) 2 Oxygen Delivery Method Nasal Cannula Weight: 229 lb 15.074 oz Body Mass Index (BMI) 33.5 Finger Stick Blood Glucose 199 Intake and Output for Last 24 Hours 07/27/18 07/28/18 07/29/18 23:59 23:59 23:59 Intake Total 1464.9 / 1464.9 2135.8 / 2135.8 Output Total 105 / 105 80 / 80 30 / 30 Balance 1359.9 / 1359.9 2055.8 / 2055.8 -30 / -30 Labs (Last 48 Hours) 07/27/18 07/27/18 07/27/18 10:30 10:30 10:30 WBC 14.5 H RBC 4.16 L Hgb 12.0 Hct 38.5 MCV 92.5 MCH 28.8 MCHC 31.2 L RDW 14.6 RDW Differential 48.7 H Plt Count 223 MPV 10.1 Immature Gran % (Auto) 0.400 Neut % (Auto) 86.8 H Lymph % (Auto) 3.9 L Sanders % (Auto) 8.8 Eos % (Auto) 0.0 Baso % (Auto) 0.1 Absolute Neuts (auto) 12.6 H Absolute Lymphs (auto) 0.56 L Total Counted Not Reportable Differential Comment COMMENT PT 27.7 H INR 2.6 Specimen Type Sample Site pH Bicarbonate Actual POC Total CO2 Base Excess O2 Saturation ABG pCO2 ABG pO2 Shahbaz Test O2 Delivery Device Liter Flow Blood Gas Notified Whom Blood Gas Notified Time Sodium 133 L Potassium 6.3 H* Chloride 99 Carbon Dioxide 23.0 Anion Gap 11 BUN 33 H Creatinine 2.94 H Estim Creat Clear Calc 19.94 Est GFR (MDRD) Af Amer 21 L Est GFR (MDRD) Non-Af 17 L BUN/Creatinine Ratio 11.2 Glucose 166 H Lactic Acid Calcium 7.6 L Phosphorus Total Bilirubin 2.30 H Direct Bilirubin GGT AST 56909 H ALT 4541 H Alkaline Phosphatase 150 H Ammonia Troponin I 0.504 H Total Protein 6.6 Albumin 3.2 Globulin 3.4 Albumin/Globulin Ratio 0.9 Lipase 81 Urine Color Urine Clarity Urine pH Ur Specific [place] Urine Protein Urine Glucose (UA) Urine Ketones Urine Occult Blood Urine Nitrite Urine Bilirubin Urine Urobilinogen Ur Leukocyte Esterase Urine RBC Urine WBC Ur Squamous Epith Cells Amorphous Sediment Urine Bacteria Urine Mucus Ur Random Sodium Urine Opiates Screen Urine Methadone Screen Acetaminophen Ur Barbiturates Screen Ur Phencyclidine Scrn Ur Amphetamines Screen U Methamphetamin-MDMA U Benzodiazepines Scrn Urine Cocaine Screen U Cannabinoids Screen Ur Drug Screen Comment Ethyl Alcohol Acetone Level Hepatitis A IgM Ab Hep Bs Antigen Hep B Core Total Ab Hep B Core IgM Ab Hepatitis C Ab (EIA) POC Glucose 07/27/18 07/27/18 07/27/18 10:30 10:30 10:30 WBC RBC Hgb Hct MCV MCH MCHC RDW RDW Differential Plt Count MPV Immature Gran % (Auto) Neut % (Auto) Lymph % (Auto) Sanders % (Auto) Eos % (Auto) Baso % (Auto) Absolute Neuts (auto) Absolute Lymphs (auto) Total Counted Differential Comment PT INR Specimen Type Sample Site pH Bicarbonate Actual POC Total CO2 Base Excess O2 Saturation ABG pCO2 ABG pO2 Shahbaz Test O2 Delivery Device Liter Flow Blood Gas Notified Whom Blood Gas Notified Time Sodium Potassium Chloride Carbon Dioxide Anion Gap BUN Creatinine Estim Creat Clear Calc Est GFR (MDRD) Af Amer Est GFR (MDRD) Non-Af BUN/Creatinine Ratio Glucose Lactic Acid 4.5 H* Calcium Phosphorus Total Bilirubin Direct Bilirubin GGT AST ALT Alkaline Phosphatase Ammonia Troponin I Total Protein Albumin Globulin Albumin/Globulin Ratio Lipase Urine Color Urine Clarity Urine pH Ur Specific [place] Urine Protein Urine Glucose (UA) Urine Ketones Urine Occult Blood Urine Nitrite Urine Bilirubin Urine Urobilinogen Ur Leukocyte Esterase Urine RBC Urine WBC Ur Squamous Epith Cells Amorphous Sediment Urine Bacteria Urine Mucus Ur Random Sodium Urine Opiates Screen Urine Methadone Screen Acetaminophen Ur Barbiturates Screen Ur Phencyclidine Scrn Ur Amphetamines Screen U Methamphetamin-MDMA U Benzodiazepines Scrn Urine Cocaine Screen U Cannabinoids Screen Ur Drug Screen Comment Ethyl Alcohol 11.0 Acetone Level NEGATIVE Hepatitis A IgM Ab Hep Bs Antigen Hep B Core Total Ab Hep B Core IgM Ab Hepatitis C Ab (EIA) POC Glucose 07/27/18 07/27/18 07/27/18 10:51 11:27 12:04 WBC RBC Hgb Hct MCV MCH MCHC RDW RDW Differential Plt Count MPV Immature Gran % (Auto) Neut % (Auto) Lymph % (Auto) Sanders % (Auto) Eos % (Auto) Baso % (Auto) Absolute Neuts (auto) Absolute Lymphs (auto) Total Counted Differential Comment PT INR Specimen Type ART Sample Site R Radial pH 7.29 L Bicarbonate Actual 20.6 L POC Total CO2 22 Base Excess -6 L O2 Saturation 94 L ABG pCO2 42.5 ABG pO2 79 Shahbaz Test POS O2 Delivery Device Nasal Can Liter Flow 4.0 Blood Gas Notified Whom ED Blood Gas Notified Time 1126 Sodium Potassium Chloride Carbon Dioxide Anion Gap BUN Creatinine Estim Creat Clear Calc Est GFR (MDRD) Af Amer Est GFR (MDRD) Non-Af BUN/Creatinine Ratio Glucose Lactic Acid Calcium Phosphorus Total Bilirubin Direct Bilirubin GGT AST ALT Alkaline Phosphatase Ammonia Troponin I Total Protein Albumin Globulin Albumin/Globulin Ratio Lipase Urine Color Yellow Urine Clarity Sl. Cloudy Urine pH 5.0 Ur Specific [place] 1.025 Urine Protein 100 H Urine Glucose (UA) Normal Urine Ketones 5 H Urine Occult Blood 250 H Urine Nitrite Negative Urine Bilirubin 3 H Urine Urobilinogen 4 H Ur Leukocyte Esterase 100 H Urine RBC 25-50 SEEN Urine WBC 10-25 SEEN Ur Squamous Epith Cells 0-5 SEEN Amorphous Sediment 2+ Urine Bacteria 1+ Urine Mucus 0 SEEN Ur Random Sodium Urine Opiates Screen Urine Methadone Screen Acetaminophen Ur Barbiturates Screen Ur Phencyclidine Scrn Ur Amphetamines Screen U Methamphetamin-MDMA U Benzodiazepines Scrn Urine Cocaine Screen U Cannabinoids Screen Ur Drug Screen Comment Ethyl Alcohol Acetone Level Hepatitis A IgM Ab Hep Bs Antigen Hep B Core Total Ab Hep B Core IgM Ab Hepatitis C Ab (EIA) POC Glucose 191 H 07/27/18 07/27/18 07/27/18 13:45 13:45 13:45 WBC RBC Hgb Hct MCV MCH MCHC RDW RDW Differential Plt Count MPV Immature Gran % (Auto) Neut % (Auto) Lymph % (Auto) Sanders % (Auto) Eos % (Auto) Baso % (Auto) Absolute Neuts (auto) Absolute Lymphs (auto) Total Counted Differential Comment PT INR Specimen Type Sample Site pH Bicarbonate Actual POC Total CO2 Base Excess O2 Saturation ABG pCO2 ABG pO2 Shahbaz Test O2 Delivery Device Liter Flow Blood Gas Notified Whom Blood Gas Notified Time Sodium Potassium Chloride Carbon Dioxide Anion Gap BUN Creatinine Estim Creat Clear Calc Est GFR (MDRD) Af Amer Est GFR (MDRD) Non-Af BUN/Creatinine Ratio Glucose Lactic Acid Calcium Phosphorus Total Bilirubin Direct Bilirubin GGT AST ALT Alkaline Phosphatase Ammonia 51.0 H Troponin I Total Protein Albumin Globulin Albumin/Globulin Ratio Lipase Urine Color Urine Clarity Urine pH Ur Specific [place] Urine Protein Urine Glucose (UA) Urine Ketones Urine Occult Blood Urine Nitrite Urine Bilirubin Urine Urobilinogen Ur Leukocyte Esterase Urine RBC Urine WBC Ur Squamous Epith Cells Amorphous Sediment Urine Bacteria Urine Mucus Ur Random Sodium Urine Opiates Screen Urine Methadone Screen Acetaminophen < 2.0 L Ur Barbiturates Screen Ur Phencyclidine Scrn Ur Amphetamines Screen U Methamphetamin-MDMA U Benzodiazepines Scrn Urine Cocaine Screen U Cannabinoids Screen Ur Drug Screen Comment Ethyl Alcohol Acetone Level Hepatitis A IgM Ab Negative Hep Bs Antigen Negative Hep B Core Total Ab Hep B Core IgM Ab Negative Hepatitis C Ab (EIA) <0.1 POC Glucose 07/27/18 07/27/18 07/27/18 13:45 13:45 14:30 WBC RBC Hgb Hct MCV MCH MCHC RDW RDW Differential Plt Count MPV Immature Gran % (Auto) Neut % (Auto) Lymph % (Auto) Sanders % (Auto) Eos % (Auto) Baso % (Auto) Absolute Neuts (auto) Absolute Lymphs (auto) Total Counted Differential Comment PT INR Specimen Type Sample Site pH Bicarbonate Actual POC Total CO2 Base Excess O2 Saturation ABG pCO2 ABG pO2 Shahbaz Test O2 Delivery Device Liter Flow Blood Gas Notified Whom Blood Gas Notified Time Sodium 135 L Potassium 5.5 H Chloride 104 Carbon Dioxide 22.0 Anion Gap 9 BUN 34 H Creatinine 2.80 H Estim Creat Clear Calc 20.93 Est GFR (MDRD) Af Amer 22 L Est GFR (MDRD) Non-Af 18 L BUN/Creatinine Ratio 12.1 Glucose 221 H Lactic Acid Calcium 6.6 L Phosphorus Total Bilirubin Direct Bilirubin GGT 69 H AST ALT Alkaline Phosphatase Ammonia Troponin I Total Protein Albumin Globulin Albumin/Globulin Ratio Lipase Urine Color Urine Clarity Urine pH Ur Specific [place] Urine Protein Urine Glucose (UA) Urine Ketones Urine Occult Blood Urine Nitrite Urine Bilirubin Urine Urobilinogen Ur Leukocyte Esterase Urine RBC Urine WBC Ur Squamous Epith Cells Amorphous Sediment Urine Bacteria Urine Mucus Ur Random Sodium Urine Opiates Screen POSITIVE H Urine Methadone Screen NEGATIVE Acetaminophen Ur Barbiturates Screen NEGATIVE Ur Phencyclidine Scrn NEGATIVE Ur Amphetamines Screen NEGATIVE U Methamphetamin-MDMA NEGATIVE U Benzodiazepines Scrn NEGATIVE Urine Cocaine Screen NEGATIVE U Cannabinoids Screen POSITIVE H Ur Drug Screen Comment Ethyl Alcohol Acetone Level Hepatitis A IgM Ab Hep Bs Antigen Hep B Core Total Ab Hep B Core IgM Ab Hepatitis C Ab (EIA) POC Glucose 07/27/18 07/27/18 07/27/18 15:55 17:10 21:16 WBC RBC Hgb Hct MCV MCH MCHC RDW RDW Differential Plt Count MPV Immature Gran % (Auto) Neut % (Auto) Lymph % (Auto) Sanders % (Auto) Eos % (Auto) Baso % (Auto) Absolute Neuts (auto) Absolute Lymphs (auto) Total Counted Differential Comment PT INR Specimen Type Sample Site pH Bicarbonate Actual POC Total CO2 Base Excess O2 Saturation ABG pCO2 ABG pO2 Shahbaz Test O2 Delivery Device Liter Flow Blood Gas Notified Whom Blood Gas Notified Time Sodium Potassium Chloride Carbon Dioxide Anion Gap BUN Creatinine Estim Creat Clear Calc Est GFR (MDRD) Af Amer Est GFR (MDRD) Non-Af BUN/Creatinine Ratio Glucose Lactic Acid 2.6 H Calcium Phosphorus Total Bilirubin Direct Bilirubin GGT AST ALT Alkaline Phosphatase Ammonia Troponin I Total Protein Albumin Globulin Albumin/Globulin Ratio Lipase Urine Color Urine Clarity Urine pH Ur Specific [place] Urine Protein Urine Glucose (UA) Urine Ketones Urine Occult Blood Urine Nitrite Urine Bilirubin Urine Urobilinogen Ur Leukocyte Esterase Urine RBC Urine WBC Ur Squamous Epith Cells Amorphous Sediment Urine Bacteria Urine Mucus Ur Random Sodium Urine Opiates Screen Urine Methadone Screen Acetaminophen Ur Barbiturates Screen Ur Phencyclidine Scrn Ur Amphetamines Screen U Methamphetamin-MDMA U Benzodiazepines Scrn Urine Cocaine Screen U Cannabinoids Screen Ur Drug Screen Comment Ethyl Alcohol Acetone Level Hepatitis A IgM Ab Hep Bs Antigen Hep B Core Total Ab Hep B Core IgM Ab Hepatitis C Ab (EIA) POC Glucose 205 H 134 H 07/28/18 07/28/18 07/28/18 04:30 04:30 04:30 WBC RBC Hgb Hct MCV MCH MCHC RDW RDW Differential Plt Count MPV Immature Gran % (Auto) Neut % (Auto) Lymph % (Auto) Sanders % (Auto) Eos % (Auto) Baso % (Auto) Absolute Neuts (auto) Absolute Lymphs (auto) Total Counted Differential Comment PT INR Specimen Type Sample Site pH Bicarbonate Actual POC Total CO2 Base Excess O2 Saturation ABG pCO2 ABG pO2 Shahbaz Test O2 Delivery Device Liter Flow Blood Gas Notified Whom Blood Gas Notified Time Sodium 138 Potassium 5.6 H Chloride 106 Carbon Dioxide 23.0 Anion Gap 9 BUN 43 H Creatinine 3.71 H Estim Creat Clear Calc 15.80 Est GFR (MDRD) Af Amer 16 L Est GFR (MDRD) Non-Af 13 L BUN/Creatinine Ratio 11.6 Glucose 128 H Lactic Acid Calcium 7.1 L Phosphorus Total Bilirubin 1.30 H Direct Bilirubin 0.67 H GGT AST 84739 H ALT 5681 H Alkaline Phosphatase 170 H Ammonia Troponin I 6.170 H* Total Protein 6.0 L Albumin 3.0 L Globulin 3.0 Albumin/Globulin Ratio Lipase Urine Color Urine Clarity Urine pH Ur Specific [place] Urine Protein Urine Glucose (UA) Urine Ketones Urine Occult Blood Urine Nitrite Urine Bilirubin Urine Urobilinogen Ur Leukocyte Esterase Urine RBC Urine WBC Ur Squamous Epith Cells Amorphous Sediment Urine Bacteria Urine Mucus Ur Random Sodium Urine Opiates Screen Urine Methadone Screen Acetaminophen Ur Barbiturates Screen Ur Phencyclidine Scrn Ur Amphetamines Screen U Methamphetamin-MDMA U Benzodiazepines Scrn Urine Cocaine Screen U Cannabinoids Screen Ur Drug Screen Comment Ethyl Alcohol Acetone Level Hepatitis A IgM Ab Hep Bs Antigen Hep B Core Total Ab Hep B Core IgM Ab Hepatitis C Ab (EIA) POC Glucose 07/28/18 07/28/18 07/28/18 05:00 06:35 06:50 WBC 10.1 RBC 3.94 L Hgb 11.4 L Hct 36.5 L MCV 92.6 MCH 28.9 MCHC 31.2 L RDW 14.2 RDW Differential 47.1 H Plt Count 158 MPV 9.7 Immature Gran % (Auto) 0.200 Neut % (Auto) 83.9 H Lymph % (Auto) 9.1 L Sanders % (Auto) 6.4 Eos % (Auto) 0.3 Baso % (Auto) 0.1 Absolute Neuts (auto) 8.4 H Absolute Lymphs (auto) 0.91 Total Counted Not Reportable Differential Comment PT 27.2 H INR 2.5 Specimen Type Sample Site pH Bicarbonate Actual POC Total CO2 Base Excess O2 Saturation ABG pCO2 ABG pO2 Shahbaz Test O2 Delivery Device Liter Flow Blood Gas Notified Whom Blood Gas Notified Time Sodium Potassium Chloride Carbon Dioxide Anion Gap BUN Creatinine Estim Creat Clear Calc Est GFR (MDRD) Af Amer Est GFR (MDRD) Non-Af BUN/Creatinine Ratio Glucose Lactic Acid Calcium Phosphorus Total Bilirubin Direct Bilirubin GGT AST ALT Alkaline Phosphatase Ammonia Troponin I Total Protein Albumin Globulin Albumin/Globulin Ratio Lipase Urine Color Urine Clarity Urine pH Ur Specific [place] Urine Protein Urine Glucose (UA) Urine Ketones Urine Occult Blood Urine Nitrite Urine Bilirubin Urine Urobilinogen Ur Leukocyte Esterase Urine RBC Urine WBC Ur Squamous Epith Cells Amorphous Sediment Urine Bacteria Urine Mucus Ur Random Sodium 55 Urine Opiates Screen Urine Methadone Screen Acetaminophen Ur Barbiturates Screen Ur Phencyclidine Scrn Ur Amphetamines Screen U Methamphetamin-MDMA U Benzodiazepines Scrn Urine Cocaine Screen U Cannabinoids Screen Ur Drug Screen Comment Ethyl Alcohol Acetone Level Hepatitis A IgM Ab Hep Bs Antigen Hep B Core Total Ab Hep B Core IgM Ab Hepatitis C Ab (EIA) POC Glucose 07/28/18 07/28/18 07/28/18 08:41 11:26 11:30 WBC RBC Hgb Hct MCV MCH MCHC RDW RDW Differential Plt Count MPV Immature Gran % (Auto) Neut % (Auto) Lymph % (Auto) Sanders % (Auto) Eos % (Auto) Baso % (Auto) Absolute Neuts (auto) Absolute Lymphs (auto) Total Counted Differential Comment PT INR Specimen Type Sample Site pH Bicarbonate Actual POC Total CO2 Base Excess O2 Saturation ABG pCO2 ABG pO2 Shahbaz Test O2 Delivery Device Liter Flow Blood Gas Notified Whom Blood Gas Notified Time Sodium Potassium Chloride Carbon Dioxide Anion Gap BUN Creatinine Estim Creat Clear Calc Est GFR (MDRD) Af Amer Est GFR (MDRD) Non-Af BUN/Creatinine Ratio Glucose Lactic Acid Calcium Phosphorus Total Bilirubin Direct Bilirubin GGT AST ALT Alkaline Phosphatase Ammonia 41.0 H Troponin I Total Protein Albumin Globulin Albumin/Globulin Ratio Lipase Urine Color Urine Clarity Urine pH Ur Specific [place] Urine Protein Urine Glucose (UA) Urine Ketones Urine Occult Blood Urine Nitrite Urine Bilirubin Urine Urobilinogen Ur Leukocyte Esterase Urine RBC Urine WBC Ur Squamous Epith Cells Amorphous Sediment Urine Bacteria Urine Mucus Ur Random Sodium Urine Opiates Screen Urine Methadone Screen Acetaminophen Ur Barbiturates Screen Ur Phencyclidine Scrn Ur Amphetamines Screen U Methamphetamin-MDMA U Benzodiazepines Scrn Urine Cocaine Screen U Cannabinoids Screen Ur Drug Screen Comment Ethyl Alcohol Acetone Level Hepatitis A IgM Ab Hep Bs Antigen Hep B Core Total Ab Hep B Core IgM Ab Hepatitis C Ab (EIA) POC Glucose 131 H 164 H 07/28/18 07/28/18 07/28/18 14:00 14:00 15:50 WBC RBC Hgb Hct MCV MCH MCHC RDW RDW Differential Plt Count MPV Immature Gran % (Auto) Neut % (Auto) Lymph % (Auto) Sanders % (Auto) Eos % (Auto) Baso % (Auto) Absolute Neuts (auto) Absolute Lymphs (auto) Total Counted Differential Comment PT INR Specimen Type Sample Site pH Bicarbonate Actual POC Total CO2 Base Excess O2 Saturation ABG pCO2 ABG pO2 Shahbaz Test O2 Delivery Device Liter Flow Blood Gas Notified Whom Blood Gas Notified Time Sodium Potassium Chloride Carbon Dioxide Anion Gap BUN Creatinine Estim Creat Clear Calc Est GFR (MDRD) Af Amer Est GFR (MDRD) Non-Af BUN/Creatinine Ratio Glucose Lactic Acid Calcium Phosphorus Total Bilirubin Direct Bilirubin GGT AST ALT Alkaline Phosphatase Ammonia Troponin I 3.520 H* Total Protein Albumin Globulin Albumin/Globulin Ratio Lipase Urine Color Urine Clarity Urine pH Ur Specific [place] Urine Protein Urine Glucose (UA) Urine Ketones Urine Occult Blood Urine Nitrite Urine Bilirubin Urine Urobilinogen Ur Leukocyte Esterase Urine RBC Urine WBC Ur Squamous Epith Cells Amorphous Sediment Urine Bacteria Urine Mucus Ur Random Sodium Urine Opiates Screen Urine Methadone Screen Acetaminophen Ur Barbiturates Screen Ur Phencyclidine Scrn Ur Amphetamines Screen U Methamphetamin-MDMA U Benzodiazepines Scrn Urine Cocaine Screen U Cannabinoids Screen Ur Drug Screen Comment Ethyl Alcohol Acetone Level Hepatitis A IgM Ab Hep Bs Antigen Pending Hep B Core Total Ab Pending Hep B Core IgM Ab Hepatitis C Ab (EIA) POC Glucose 07/28/18 07/28/18 07/28/18 15:50 18:27 21:44 WBC RBC Hgb Hct MCV MCH MCHC RDW RDW Differential Plt Count MPV Immature Gran % (Auto) Neut % (Auto) Lymph % (Auto) Sanders % (Auto) Eos % (Auto) Baso % (Auto) Absolute Neuts (auto) Absolute Lymphs (auto) Total Counted Differential Comment PT INR Specimen Type Sample Site pH Bicarbonate Actual POC Total CO2 Base Excess O2 Saturation ABG pCO2 ABG pO2 Shahbaz Test O2 Delivery Device Liter Flow Blood Gas Notified Whom Blood Gas Notified Time Sodium Potassium Chloride Carbon Dioxide Anion Gap BUN Creatinine Estim Creat Clear Calc Est GFR (MDRD) Af Amer Est GFR (MDRD) Non-Af BUN/Creatinine Ratio Glucose Lactic Acid Calcium Phosphorus Total Bilirubin 1.10 H Direct Bilirubin 0.62 H GGT AST 5685 H ALT 4381 H Alkaline Phosphatase 165 H Ammonia Troponin I Total Protein 5.6 L Albumin 2.6 L Globulin 3.0 Albumin/Globulin Ratio Lipase Urine Color Urine Clarity Urine pH Ur Specific [place] Urine Protein Urine Glucose (UA) Urine Ketones Urine Occult Blood Urine Nitrite Urine Bilirubin Urine Urobilinogen Ur Leukocyte Esterase Urine RBC Urine WBC Ur Squamous Epith Cells Amorphous Sediment Urine Bacteria Urine Mucus Ur Random Sodium Urine Opiates Screen Urine Methadone Screen Acetaminophen Ur Barbiturates Screen Ur Phencyclidine Scrn Ur Amphetamines Screen U Methamphetamin-MDMA U Benzodiazepines Scrn Urine Cocaine Screen U Cannabinoids Screen Ur Drug Screen Comment Ethyl Alcohol Acetone Level Hepatitis A IgM Ab Hep Bs Antigen Hep B Core Total Ab Hep B Core IgM Ab Hepatitis C Ab (EIA) POC Glucose 111 H 112 H 07/29/18 07/29/18 07/29/18 04:30 04:30 04:30 WBC 7.4 RBC 3.73 L Hgb 10.5 L Hct 32.9 L MCV 88.2 MCH 28.2 MCHC 31.9 L RDW 14.2 RDW Differential 44.2 H Plt Count 134 L MPV 10.1 Immature Gran % (Auto) 0.300 Neut % (Auto) 85.1 H Lymph % (Auto) 8.7 L Sanders % (Auto) 5.1 Eos % (Auto) 0.7 Baso % (Auto) 0.1 Absolute Neuts (auto) 6.3 Absolute Lymphs (auto) 0.64 L Total Counted Not Reportable Differential Comment PT 26.1 H INR 2.4 Specimen Type Sample Site pH Bicarbonate Actual POC Total CO2 Base Excess O2 Saturation ABG pCO2 ABG pO2 Shahbaz Test O2 Delivery Device Liter Flow Blood Gas Notified Whom Blood Gas Notified Time Sodium 141 Potassium 3.9 Chloride 101 Carbon Dioxide 28.0 Anion Gap BUN 34 H Creatinine 3.80 H Estim Creat Clear Calc 15.42 Est GFR (MDRD) Af Amer 15 L Est GFR (MDRD) Non-Af 13 L BUN/Creatinine Ratio 8.9 L Glucose 107 H Lactic Acid Calcium 7.6 L Phosphorus 5.2 H Total Bilirubin 1.10 H Direct Bilirubin 0.73 H GGT AST 2544 H ALT 3416 H Alkaline Phosphatase 193 H Ammonia Troponin I Total Protein 5.4 L Albumin 2.7 L Globulin 2.7 Albumin/Globulin Ratio Lipase Urine Color Urine Clarity Urine pH Ur Specific [place] Urine Protein Urine Glucose (UA) Urine Ketones Urine Occult Blood Urine Nitrite Urine Bilirubin Urine Urobilinogen Ur Leukocyte Esterase Urine RBC Urine WBC Ur Squamous Epith Cells Amorphous Sediment Urine Bacteria Urine Mucus Ur Random Sodium Urine Opiates Screen Urine Methadone Screen Acetaminophen Ur Barbiturates Screen Ur Phencyclidine Scrn Ur Amphetamines Screen U Methamphetamin-MDMA U Benzodiazepines Scrn Urine Cocaine Screen U Cannabinoids Screen Ur Drug Screen Comment Ethyl Alcohol Acetone Level Hepatitis A IgM Ab Hep Bs Antigen Hep B Core Total Ab Hep B Core IgM Ab Hepatitis C Ab (EIA) POC Glucose Microbiology 07/27/18 14:55 Mucosa - Nasopharyngeal Respiratory Panel (PCR) - Final Clinical Impression(s) from Imaging Studies Brain CT 07/27/18 09:54 IMPRESSION: Chronic involutional changes of the brain. Electronically Signed: Doug Brown, at 11:41 EDT , Service support , Chest X-Ray 07/27/18 10:29 IMPRESSION: The tip of the right subclavian catheter is in the right internal jugular vein. Cardiomegaly. The lungs are clear. Electronically Signed: Doug Brown, at 12:27 EDT , Service support , Abdomen Ultrasound 07/27/18 14:45 IMPRESSION: Enlarged fatty liver. Mild pericholecystic fluid. Electronically Signed: Josse Montenegro DO at 23:53 EDT Tel [phone], Service support , Abdomen CT 07/28/18 09:54 IMPRESSION: Small right pleural effusion with underlying infiltration and/or atelectasis. The portal vein as well as the hepatic veins are patent. Electronically Signed: Doug Brown, at 13:42 EDT , Service support , Chest X-Ray 07/28/18 10:44 IMPRESSION: The tip of the right internal jugular dialysis catheter is in the proximal portion of the superior vena cava. Electronically Signed: Doug Brown, at 11:45 EDT , Service support , Medical Necessity - Tobacco Use Smoking Status: Current every day smoker Tobacco Use: Cigarettes Assessment/Plan All Active Problems Frequent falls (Acute) Shock, unspecified (Acute) GI bleed (Acute) Acute liver failure (Acute) Coagulopathy (Acute) UTI (urinary tract infection) (Acute) Hepatic encephalopathy (Acute) Acute renal insufficiency (Acute) Acute renal failure (Acute) Lightheadedness (Acute) Unsteady gait (Acute) Headache (Acute) Chest pain (Acute) Weakness of both arms (Resolved) Numbness and tingling of right face (Resolved) Difficulty speaking (Resolved) NSTEMI (non-ST elevated myocardial infarction) (Resolved) Jaw pain (Resolved) RECOMMENDATIONS: 1. Continue antimicrobials. 2. Continue hemodialysis support per nephrology recommendations. 3. Continue daily PPI therapy. 4. Continue to monitor transaminase levels and INR. 5. Encourage incentive spirometer use and mobilize patient as tolerated. 6. Following hemodialysis today, the patient could be transferred out of the medical intensive care unit. IMPRESSIONS: 1. Acute liver injury/coagulopathy Considerations include toxic effect from medications (drug induced liver injury) with subsequent impaired synthetic function leading to coagulopathy. Additionally, in March 2016, the patient was also noted to have an elevated factor VIII level, which has been shown to be a risk factor for venous thrombosis. A subsequent CT abdomen revealed no evidence of hepatic venous thrombosis. At this time, the patient's transaminase levels are improving. This will be monitored on a daily basis. Continue to avoid potentially hepatotoxic medications. 2. Acute on chronic kidney disease/hyperkalemia Nephrology has been consulted to assist with management. Potential concern for hepatorenal syndrome. Continue hemodialysis support as indicated. 3. Rectal bleeding The patient reports rectal bleeding over the last 2 weeks. She was initially referred to undergo endoscopic evaluation on an outpatient basis. At the current time, the patient is not actively bleeding. We will continue to monitor. Surgery is following. 4. Encephalopathy Improved. Most likely metabolic in nature and related to the patient's underlying impaired hepatic function. 5. Troponin elevation/history of systolic heart failure Cardiology has been consulted to assist with management. 6. Chronic alcohol and tobacco dependency Monitor for signs of alcohol withdrawal. Nicotine replacement therapy can be considered while the patient is admitted to the hospital. 7. Depression/chronic pain syndrome/hypertension/GERD/hyperlipidemia/obesity Complicates care, management, recovery and prognosis. Continue to hold all potential hepatotoxic medications. Continue to hold antihypertensives, given acute kidney injury. This note was generated with FeZoation software. It may contain incorrect words, spelling, and punctuation that were not noted in checking the note before signing. Code Visit Inpatient E&M: 44290 Subs Hosp L3
--- NOTE | 2018-07-29 07:10 | PCM.PN.HOSP ---
Patient Problems: Active and Suspected Problems Shock, unspecified (Acute) GI bleed (Acute) Acute liver failure (Acute) Coagulopathy (Acute) UTI (urinary tract infection) (Acute) Hepatic encephalopathy (Acute) Acute renal insufficiency (Acute) Acute renal failure (Acute) Subjective: Heart rate is controlled. Blood pressure elevated. Patient was dialyzed yesterday and today. Denies abdominal pain. Still anuric, total urine output 80 mL yesterday and 60 mL since midnight Vitals/I&O's: Vital Signs Temp Pulse Resp BP Pulse Ox 97.6 F L 84 18 161/66 H 90 07/29/18 00:00 07/29/18 06:00 07/29/18 06:00 07/29/18 06:00 07/29/18 06:00 Oxygen Flow Rate (L/min) 2 Oxygen Delivery Method Nasal Cannula Weight: 229 lb 15.074 oz Body Mass Index (BMI) 33.5 Finger Stick Blood Glucose 199 Intake and Output for Last 24 Hours 07/27/18 07/28/18 07/29/18 23:59 23:59 23:59 Intake Total 1464.9 / 1464.9 2135.8 / 2135.8 20 / 20 Output Total 105 / 105 80 / 80 60 / 60 Balance 1359.9 / 1359.9 2055.8 / 2055.8 -40 / -40 General: Alert, Oriented x3, Cooperative HEENT: Atraumatic, PERRLA, EOMI, Normocephalic Neck: Supple, No JVD, Negative Carotid Bruits Lungs: Clear to auscultation, No rhonchi, No wheeze, No rales, Diminished Cardiovascular: Regular rate, Regular Rhythm, Normal S1, Normal S2, No murmurs Abdomen: Bowel Sounds Present, Soft, Non Tender, Non-Distended Extremities: No edema, Capillary Refill Less than 3 Seconds Skin: No rashes, No breakdown Musculoskeletal: No Tenderness to Palpation of Joints or Extremities, Arthritic Changes Neurological: Cranial nerves II-XII grossly intact, Deep Tendon Reflexes 2+/4 and Symmetrical, Neuro grossly intact Psych/Mental Status: Normal Affect, Appropriate Microbiology Past 72 Hours 07/27/18 14:55 Mucosa - Nasopharyngeal Respiratory Panel (PCR) - Final Laboratory Results 07/27/18 13:45: Hepatitis A IgM Ab Negative, Hep Bs Antigen Negative, Hep B Core IgM Ab Negative, Hepatitis C Ab (EIA) <0.1 07/28/18 06:35: PT 27.2 H, INR 2.5 07/28/18 06:50: Ur Random Sodium 55 07/28/18 08:41: POC Glucose 131 H 07/28/18 11:26: POC Glucose 164 H 07/28/18 11:30: Ammonia 41.0 H 07/28/18 14:00: Hep Bs Antigen Pending 07/28/18 14:00: Hep B Core Total Ab Pending 07/28/18 15:50: Troponin I 3.520 H* 07/28/18 15:50: Total Bilirubin 1.10 H, Direct Bilirubin 0.62 H, AST 5685 H, ALT 4381 H, Alkaline Phosphatase 165 H, Total Protein 5.6 L, Albumin 2.6 L, Globulin 3.0 07/28/18 18:27: POC Glucose 111 H 07/28/18 21:44: POC Glucose 112 H 07/29/18 04:30: Sodium 141, Potassium 3.9, Chloride 101, Carbon Dioxide 28.0, BUN 34 H, Creatinine 3.80 H, Estim Creat Clear Calc 15.42, Est GFR (MDRD) Af Amer 15 L, Est GFR (MDRD) Non-Af 13 L, BUN/Creatinine Ratio 8.9 L, Glucose 107 H, Calcium 7.6 L, Phosphorus 5.2 H, Total Bilirubin 1.10 H, Direct Bilirubin 0.73 H, AST 2544 H, ALT 3416 H, Alkaline Phosphatase 193 H, Total Protein 5.4 L, Albumin 2.7 L, Globulin 2.7 07/29/18 04:30: WBC 7.4, RBC 3.73 L, Hgb 10.5 L, Hct 32.9 L, MCV 88.2, MCH 28.2, MCHC 31.9 L, RDW 14.2, RDW Differential 44.2 H, Plt Count 134 L, MPV 10.1, Immature Gran % (Auto) 0.300, Neut % (Auto) 85.1 H, Lymph % (Auto) 8.7 L, [place] % (Auto) 5.1, Eos % (Auto) 0.7, Baso % (Auto) 0.1, Absolute Neuts (auto) 6.3, Absolute Lymphs (auto) 0.64 L, Total Counted Not Reportable 07/29/18 04:30: PT 26.1 H, INR 2.4 Current Medications Chlorhexidine Gluconate () 1 each TOPICAL DAILY [facility] Last Admin: 07/28/18 09:44 Dose: 1 each Heparin Sodium (Porcine) () 2,500 units IV UD PRN PRN Reason: HEPARIN FLUSH Sodium Chloride () 250 mls @ 15 mls/hr IV .[id number] PRN PRN Reason: SALINE FLUSH Last Admin: 07/27/18 21:44 Dose: 15 mls/hr Pantoprazole Sodium 40 mg/ (Sodium Chloride) 110 mls @ 330 mls/hr IV Q24 [facility] Last Admin: 07/28/18 11:28 Dose: 330 mls/hr Ceftriaxone Sodium 2 gm/ (Sodium Chloride) 50 mls @ 100 mls/hr IV Q24 [facility] Last Admin: 07/28/18 09:44 Dose: 100 mls/hr Influenza Virus Vaccine Quadrival (Fluarix/Fluzone) 0.5 ml IM .ONCE ONE Stop: 07/29/18 10:01 Insulin Human Lispro (Humalog Kwikpen (Bkc)) 0 unit SC ACHS [facility]; Protocol Last Admin: 07/28/18 21:46 Dose: Not Given Metoprolol Tartrate (Lopressor (Beta Denis)) 25 mg PO BID [facility] Last Admin: 07/28/18 21:46 Dose: 25 mg Nitroglycerin (Nitrostat) 0.4 mg SUBLINGUAL Q5M PRN PRN Reason: CARDIAC/CHEST PAIN Nutritional Formula (Lactose Free) (Glucerna Shake) 120 ml PO 4X/DAY [facility] Last Admin: 07/29/18 02:27 Dose: Not Given Nystatin (Mycostatin Powder) 1 applic TOPICAL 4X/DAY [facility] Last Admin: 07/28/18 21:46 Dose: 1 applicatio Ondansetron HCl (Zofran) 4 mg IV Q8H PRN PRN PRN Reason: NAUSEA Oxycodone HCl (Oxyir) 5 - 10 mg PO Q6H PRN PRN PRN Reason: SEVERE PAIN (6-10/10) Last Admin: 07/27/18 23:37 Dose: 10 mg Sodium Chloride () 5 - 15 ml IV UD PRN PRN Reason: SALINE FLUSH Sodium Chloride () 10 - 40 ml IV UD PRN PRN Reason: MULTILUMEN/HICMAN CATH FLUSH Sodium Chloride () 10 ml IV UD PRN PRN Reason: Dialysis Catheter Flush Triamcinolone Acetonide (Triamcinolone Acetonide) 1 applic TOPICAL BID PRN PRN Reason: RASH/TOPICAL IRRITATION Medical Necessity - Tobacco Use Smoking Status: Current every day smoker Tobacco Use: Cigarettes Assessment/Plan All Active Problems Frequent falls (Acute) Shock, unspecified (Acute) GI bleed (Acute) Acute liver failure (Acute) Coagulopathy (Acute) UTI (urinary tract infection) (Acute) Hepatic encephalopathy (Acute) Acute renal insufficiency (Acute) Acute renal failure (Acute) Lightheadedness (Acute) Unsteady gait (Acute) Headache (Acute) Chest pain (Acute) Weakness of both arms (Resolved) Numbness and tingling of right face (Resolved) Difficulty speaking (Resolved) NSTEMI (non-ST elevated myocardial infarction) (Resolved) Jaw pain (Resolved) The patient is a 63 year old F with multiple comorbidities including chronic back pain on oxycodone, Zanaflex and other medications came to ER with increased weakness for 1-2 days along with rectal bleed for about 12 days. As per triage note, patient also felt he is leaning on the left side. Prior to that, she was in ER recently on 07/16 and 07/25 for lower GI bleed and was seemed controlled and stable and therefore sent home for follow with Dr. Wynn for which she is scheduled for colonoscopy on 07/28. In ED, she was found hypotensive, SBP 90, hypoxic 83% on room air, tachypneic RR 26-30/min but not tachycardic. Basic lab work shows mild leukocytosis but H&H 12.0/38.5. Platelet count 223. INR 2.6, baseline 1.2 on 07/25. Severe hyperkalemia, K6.3, bicarb 23, sodium 133, BUN 33, creatinine 2.94. baseline BUN/creatinine runs 18/1.3. LFT shows significant AST 10,000/ALT 4541. Alk phos 150, total bili 2.3. Her LFTs were normal on 07/25 except alk phos 145. Patient is confused although oriented to time and place and person and therefore history is limited In ED, patient had right subclavian central venous catheter by ER physician. Chest x-ray shows lungs are clear but the tip of right subclavian catheter and right IJ. EKG shows normal sinus rhythm with first-degree AV block, QRS 136 ms, LAD with AV conduction delay. Patient had recent CT abdomen without oral and IV contrast which reported as fatty liver but normal gallbladder and extrahepatic bili system. Normal spleen and pancreas. Normal small intestine and colon. 1. Hypotension most probably from acute liver injury/severe sepsis: Lactic acid is 4.5. Lactic acid may be elevated from hypoperfusion/severe sepsis or acute liver injury. Patient is being admitted in ICU. Patient had IV Zosyn in ED changed to ceftriaxone for possible UTI. Urine culture pending continue IV fluid normal saline. Gonzales culture. Respiratory panel ordered. Organic Section Technical Lead is consulted. Hypotension resolved. Currently blood pressure is on higher side. 2. Acute liver injury, most probably drug-induced liver injury with mild encephalopathy, most probably metabolic encephalopathy/hepatic encephalopathy: Patient has been taking oxycodone, Zovirax, tizanidine, Klonopin and amitriptyline and Crestor. Hold all home medications except metoprolol. Serum Tylenol, ammonia, GGTP, U tox and acute hepatitis panel ordered. Monitor LFT. Right upper quadrant sonogram reported as enlarged fatty liver. Even though, Tylenol level is normal, I feel the can try NAC drip empirically for drug-induced liver injury or cannabinoids or possible NSAIDs. Monitor LFT in evening and if does not show positive effect on transaminases we can discontinue it. Discussed with the pharmacist. 3. Acute kidney injury on CKD stage III with severe hyperkalemia, possible hepatorenal syndrome: EKG does not show hyperkalemic changes. Patient was given hyperkalemia cocktail in ED. Kayexalate was given. K5.6 but creatinine worsened 3.1 from 2.9. Ferruler is being consulted. Patient is on hemodialysis. 4. Electrolyte abnormalities: ABG shows 7.29/42/79 on 4 L of oxygen. Normal anion gap metabolic acidosis. Hyperkalemia, hyponatremia: Corrected on hemodialysis. 5. Troponins non-STEMI range with history of non-STEMI with chronic systolic heart failure: Patient had echo in apple 2016 reported as EF 45% with moderate global hypokinesis. Mildly dilated LV. Left atrium moderately enlarged. Mild diffuse mitral thickening with 2+ eccentric MR. Normal tricuspid valve. Normal aortic valve. She had normal pharmacological stress test in November 2014. Patient was seen by Dr. Qureshi in 2015, [facility] geology associate. As per his note, patient had cardiac cath in past with normal epicardial coronaries. Differential diagnosis was Takasubo or microvascular angina or vasospasm angina. Denies chest pain this time. Assistant Professor Of Drama has been consulted. Patient is not stable for cardiac cath. Echo reported as EF 45% with evidence of diastolic dysfunction and segmental systolic dysfunction. Left atrium moderately enlarged. Mild MR. Mild mitral stenosis. Mild TR, RVSP 71 mmHg. 6. Lower GI bleed since admission: Colonoscopy once patient is more stable. Chronic nicotine use: Patient smokes 1 pack cigarettes daily since teenage. She admits drinking alcohol twice a week about 5-6 shots of whiskey for last 3 weeks continuously. Denies chronic alcohol use but she gets alcohol withdrawal symptoms like tremors and shaking if does not drink; Therefore she has chronic alcohol use and dependence Hypertension: Currently blood pressure is on lower side. Blood pressure has recovered Other multiple comorbidities include multiple degenerative joint disease, chronic back pain on pain medications, depression, irritable bowel syndrome, anxiety and depression: Prognosis is guarded. DVT prophylaxis: On bilateral SCDs. Pharmacological prophylaxis contraindicated secondary to coagulopathy and acute liver injury. Microbiology Past 72 Hours 07/27/18 14:55 Mucosa - Nasopharyngeal Respiratory Panel (PCR) - Final Laboratory Results 07/27/18 13:45: Hepatitis A IgM Ab Negative, Hep Bs Antigen Negative, Hep B Core IgM Ab Negative, Hepatitis C Ab (EIA) <0.1 07/28/18 06:35: PT 27.2 H, INR 2.5 07/28/18 06:50: Ur Random Sodium 15:50: Troponin I 3.520 H* 07/28/18 15:50: Total Bilirubin 1.10 H, Direct Bilirubin 0.62 H, AST 5685 H, ALT 4381 H, Alkaline Phosphatase 165 H, Total Protein 5.6 L, Albumin 2.6 L, Globulin 3.0 07/29/18 04:30: Sodium 141, Potassium 3.9, Chloride 101, Carbon Dioxide 28.0, BUN 34 H, Creatinine 3.80 H, Estim Creat Clear Calc 15.42, Est GFR (MDRD) Af Amer 15 L, Est GFR (MDRD) Non-Af 13 L, BUN/Creatinine Ratio 8.9 L, Glucose 107 H, Calcium 7.6 L, Phosphorus 5.2 H, Total Bilirubin 1.10 H, Direct Bilirubin 0.73 H, AST 2544 H, ALT 3416 H, Alkaline Phosphatase 193 H, Total Protein 5.4 L, Albumin 2.7 L, Globulin 2.7 07/29/18 04:30: WBC 7.4, RBC 3.73 L, Hgb 10.5 L, Hct 32.9 L, MCV 88.2, MCH 28.2, MCHC 31.9 L, RDW 14.2, RDW Differential 44.2 H, Plt Count 134 L, MPV 10.1, Immature Gran % (Auto) 0.300, Neut % (Auto) 85.1 H, Lymph % (Auto) 8.7 L, [place] % (Auto) 5.1, Eos % (Auto) 0.7, Baso % (Auto) 0.1, Absolute Neuts (auto) 6.3, Absolute Lymphs (auto) 0.64 L, Total Counted Not Reportable 07/29/18 04:30: PT 26.1 H, INR 2.4 07/27/18 12:04: Urine Color Yellow, Urine Clarity Sl. Cloudy, Urine pH 5.0, Ur Specific [place] 1.025, Urine Protein 100 H, Urine Glucose (UA) Normal, Urine Ketones 5 H, Urine Occult Blood 250 H, Urine Nitrite Negative, Urine Bilirubin 3 H, Urine Urobilinogen 4 H, Ur Leukocyte Esterase 100 H, Urine RBC 25-50 SEEN, Urine WBC 10-25 SEEN, Ur Squamous Epith Cells 0-5 SEEN, Amorphous Sediment 2+, Urine Bacteria 1+, Urine Mucus 0 SEEN Clinical Impression(s) from Imaging Studies Abdomen Ultrasound 07/27/18 14:45 IMPRESSION: Enlarged fatty liver. Mild pericholecystic fluid. Abdomen CT 07/28/18 09:54 IMPRESSION: Small right pleural effusion with underlying infiltration and/or atelectasis. The portal vein as well as the hepatic veins are patent. Chest X-Ray 07/28/18 10:44 IMPRESSION: The tip of the right internal jugular dialysis catheter is in the proximal portion of the superior vena cava. Code Visit Inpatient E&M: 30368 Subs Hosp L3
--- NOTE | 2018-07-29 09:25 | CM.UR ---
Participated in interdisciplinary rounds this am. Patient is being prepared for dialysis. Possibly being transferred to PCU this afternoon after dialysis. Joaquin Cristina RN, CCM.
--- NOTE | 2018-07-29 09:51 | PN.SURG_ITS ---
Patient Problems: Active and Suspected Problems Shock, unspecified (Acute) GI bleed (Acute) Acute liver failure (Acute) Coagulopathy (Acute) UTI (urinary tract infection) (Acute) Hepatic encephalopathy (Acute) Acute renal insufficiency (Acute) Acute renal failure (Acute) Subjective: no pain, starting dialysis - Physical Exam General: Alert, Oriented x3 Lungs: Diminished, Rales Cardiovascular: Regular rate, Regular Rhythm Abdomen: Soft, Non Tender, Hypoactive Bowel Sounds Vital Signs Temp Pulse Resp BP Pulse Ox 97.5 F L 86 18 152/76 H 96 07/29/18 09:00 07/29/18 09:00 07/29/18 09:00 07/29/18 09:00 07/29/18 09:00 Oxygen Flow Rate (L/min) 2 Oxygen Delivery Method Nasal Cannula Weight: 104.3 kg Body Mass Index (BMI) 33.5 Finger Stick Blood Glucose 199 Intake and Output for Last 24 Hours 07/27/18 07/28/18 07/29/18 23:59 23:59 23:59 Intake Total 1464.9 / 1464.9 2135.8 / 2135.8 20 / 20 Output Total 105 / 105 80 / 80 60 / 60 Balance 1359.9 / 1359.9 2055.8 / 2055.8 -40 / -40 Microbiology Past 72 Hours 07/27/18 15:55 Urine Culture - Preliminary Urine Catheter - Catheter Culture exhibits no growth. 07/27/18 14:55 Respiratory Panel (PCR) - Final Mucosa - Nasopharyngeal Laboratory Tests Past 24 Hrs 07/27/18 07/28/18 07/28/18 13:45 11:30 14:00 WBC RBC Hgb Hct MCV MCH MCHC RDW RDW Differential Plt Count MPV Immature Gran % (Auto) Neut % (Auto) Lymph % (Auto) [place] % (Auto) Eos % (Auto) Baso % (Auto) Absolute Neuts (auto) Absolute Lymphs (auto) Total Counted PT INR Sodium Potassium Chloride Carbon Dioxide BUN Creatinine Estim Creat Clear Calc Est GFR (MDRD) Af Amer Est GFR (MDRD) Non-Af BUN/Creatinine Ratio Glucose Calcium Phosphorus Total Bilirubin Direct Bilirubin AST ALT Alkaline Phosphatase Ammonia 41.0 H Troponin I Total Protein Albumin Globulin Hepatitis A IgM Ab Negative Hep Bs Antigen Negative Pending Hep B Core Total Ab Hep B Core IgM Ab Negative Hepatitis C Ab (EIA) <0.1 07/28/18 07/28/18 07/28/18 14:00 15:50 15:50 WBC RBC Hgb Hct MCV MCH MCHC RDW RDW Differential Plt Count MPV Immature Gran % (Auto) Neut % (Auto) Lymph % (Auto) [place] % (Auto) Eos % (Auto) Baso % (Auto) Absolute Neuts (auto) Absolute Lymphs (auto) Total Counted PT INR Sodium Potassium Chloride Carbon Dioxide BUN Creatinine Estim Creat Clear Calc Est GFR (MDRD) Af Amer Est GFR (MDRD) Non-Af BUN/Creatinine Ratio Glucose Calcium Phosphorus Total Bilirubin 1.10 H Direct Bilirubin 0.62 H AST 5685 H ALT 4381 H Alkaline Phosphatase 165 H Ammonia Troponin I 3.520 H* Total Protein 5.6 L Albumin 2.6 L Globulin 3.0 Hepatitis A IgM Ab Hep Bs Antigen Hep B Core Total Ab Pending Hep B Core IgM Ab Hepatitis C Ab (EIA) 07/29/18 07/29/18 07/29/18 04:30 04:30 04:30 WBC 7.4 RBC 3.73 L Hgb 10.5 L Hct 32.9 L MCV 88.2 MCH 28.2 MCHC 31.9 L RDW 14.2 RDW Differential 44.2 H Plt Count 134 L MPV 10.1 Immature Gran % (Auto) 0.300 Neut % (Auto) 85.1 H Lymph % (Auto) 8.7 L [place] % (Auto) 5.1 Eos % (Auto) 0.7 Baso % (Auto) 0.1 Absolute Neuts (auto) 6.3 Absolute Lymphs (auto) 0.64 L Total Counted Not Reportable PT 26.1 H INR 2.4 Sodium 141 Potassium 3.9 Chloride 101 Carbon Dioxide 28.0 BUN 34 H Creatinine 3.80 H Estim Creat Clear Calc 15.42 Est GFR (MDRD) Af Amer 15 L Est GFR (MDRD) Non-Af 13 L BUN/Creatinine Ratio 8.9 L Glucose 107 H Calcium 7.6 L Phosphorus 5.2 H Total Bilirubin 1.10 H Direct Bilirubin 0.73 H AST 2544 H ALT 3416 H Alkaline Phosphatase 193 H Ammonia Troponin I Total Protein 5.4 L Albumin 2.7 L Globulin 2.7 Hepatitis A IgM Ab Hep Bs Antigen Hep B Core Total Ab Hep B Core IgM Ab Hepatitis C Ab (EIA) POC Glucose 07/28/18 07/28/18 07/28/18 21:44 18:27 11:26 POC Glucose 112 H 111 H 164 H Medical Necessity - Tobacco Use Smoking Status: Current every day smoker Tobacco Use: Cigarettes Assessment/Plan All Active Problems Frequent falls (Acute) Shock, unspecified (Acute) GI bleed (Acute) Acute liver failure (Acute) Coagulopathy (Acute) UTI (urinary tract infection) (Acute) Hepatic encephalopathy (Acute) Acute renal insufficiency (Acute) Acute renal failure (Acute) Lightheadedness (Acute) Unsteady gait (Acute) Headache (Acute) Chest pain (Acute) Weakness of both arms (Resolved) Numbness and tingling of right face (Resolved) Difficulty speaking (Resolved) NSTEMI (non-ST elevated myocardial infarction) (Resolved) Jaw pain (Resolved) acute liver injury-likely secondary to alcohol abuse and steatohepatitis, lower GI bleeding, Electrolyte abnormalities, dehydration, hypotension The patient is currently admitted to the ICU. She has a central catheter placed. Vitals are stable her liver transaminases continue to increase with relatively normal bilirubin and alkaline phosphatase.CT scan of the abdomen with contrast demonstrated no portal vein thrombosis or hepatic vein thrombosis. Etiology is likely a combination of alcoholic hepatitis and steatohepatitis. I understand hepatitis profile is currently pending. Patient had significantly low urine output overnight. questionable hepatorenal syndrome? Dialysis catheter placed and patient will be undergoing dialysis as her BUN/creatinine of increased and she has been oliguric overnight. Hemoglobin stable-no further GI bleeding noted-we will hold endoscopy for now unless the patient actively bleeding. When cardiology and medicine services are comfortable that she is appropriate for bowel prep and sedation, will plan for upper and lower endoscopy
--- NOTE | 2018-07-29 10:44 | CM.UR ---
RN CM Assessment Met face to face with patient for initial transition planning/care coordination assessment. Introduced myself and my role. Verb understanding and agreement for assessment. Presentation: Generalized weakness, blood per rectum and abd pain. Alcohol abuse. PCP: Dr. Earl Preferred Pharmacy: [facility] Insurance: [employer] Prescription Benefit: yes caresource LNOK: Tacho Almaraz Home: 1 story home. 3 steps in Denies access issues. ADLs: States live in boyfriend helps with cleaning, household maintenance and cooking. Independent with personal care and grooming. Transportation: boyfriend drives. DME: Bath chair, BSC, walker and cane. Can't remember name of company she usually used. SNF/HHC: Denies every having either. Passport/waiver tag marker: Denies Advance Directives: States she has both. States Tacho Almaraz is her DPOA. Asked her to have him bring both living will and power of compliance attorney so we can make copies. She agrees. DC PLAN: Home. ? Needs. Ongoing dialysis? Joaquin Cristina RN, CCM.
--- NOTE | 2018-07-29 11:42 | PCM.PN.CARD ---
Subjectve: The patient appears to be somewhat more awake and alert today. She denies ongoing chest discomfort or acute respiratory related symptoms. She is undergoing hemodialysis. Objective: Vital Signs Temp Pulse Resp BP Pulse Ox 97.5 F L 86 18 152/76 H 96 07/29/18 09:00 07/29/18 09:00 07/29/18 09:00 07/29/18 09:00 07/29/18 09:00 Oxygen Flow Rate (L/min) 2 Oxygen Delivery Method Nasal Cannula Weight: 229 lb 15.074 oz Body Mass Index (BMI) 33.5 Finger Stick Blood Glucose 199 Intake and Output for Last 24 Hours 07/27/18 07/28/18 07/29/18 23:59 23:59 23:59 Intake Total 1464.9 / 1464.9 2135.8 / 2135.8 20 20 Output Total 105 / 105 80 / 80 60 / 60 Balance 1359.9 / 1359.9 2055.8 / 2055.8 -40 / -40 General: Awake, Cooperative, Ill Appearing Neck: Supple, Good ROM Lungs: Clear to auscultation Cardiovascular: Regular Rhythm, Normal S1, Normal S2 Abdomen: Bowel Sounds Present, Soft Extremities: No edema 07/28/18 15:50: Troponin I 3.520 H* 07/28/18 15:50: Total Bilirubin 1.10 H, Direct Bilirubin 0.62 H 07/29/18 04:30: Sodium 141, Potassium 3.9, Chloride 101, Carbon Dioxide 28.0, BUN 34 H, Creatinine 3.80 H, Est GFR (MDRD) Af Amer 15 L, Est GFR (MDRD) Non-Af 13 L, BUN/Creatinine Ratio 8.9 L, Glucose 107 H, Calcium 7.6 L, Phosphorus 5.2 H, Total Bilirubin 1.10 H, Direct Bilirubin 0.73 H 07/29/18 04:30: WBC 7.4, RBC 3.73 L, Hgb 10.5 L, Hct 32.9 L, MCV 88.2, MCH 28.2, MCHC 31.9 L, RDW 14.2, RDW Differential 44.2 H, Plt Count 134 L, MPV 10.1, Immature Gran % (Auto) 0.300, Neut % (Auto) 85.1 H, Lymph % (Auto) 8.7 L, [place] % (Auto) 5.1, Eos % (Auto) 0.7, Baso % (Auto) 0.1, Absolute Neuts (auto) 6.3, Total Counted Not Reportable 07/29/18 04:30: PT 26.1 H, INR 2.4 Rhythm: Sinus rhythm ECHO: Interpretation Summary The study was technically difficult. Contrast injection was performed. Mild segmental systolic dysfunction (see wall motion). The estimated ejection fraction is 45 %. The left atrium is moderately enlarged. The right atrium is mildly enlarged. There is mild mitral annular calcification. Mild diffuse mitral valve thickening. Mild mitral valve stenosis. Mild (1+) mitral valve insufficiency. Mild tricuspid valve insufficiency. Mild focal aortic valve thickening. Trivial aortic valve insufficiency. Trivial pulmonic valve insufficiency. Trivial pericardial effusion. There are no echocardiographic indications of cardiac tamponade. Right ventricular systolic pressure estimated to be 71 mmHg c/w pulmonary hypertension. There is evidence of diastolic dysfunction. Previous [facility] medical records demonstrate a [facility] echocardiogram on 03-15-15 which commented upon left ventricular regional wall motion abnormalities in the inferior, inferior lateral, and distal anterior distribution with an overall LVEF of 58%. Cardiac Cath: [facility] cardiac catheterization from 03-18-15 commented upon LAD ostial 50-60% stenosis, LCx with no significant disease, and RCA with mid 30% stenosis PCI: [facility] PCI from 03-18-15, and upon LAD PCI/PETER with a Promus 3.0 x 12 mm stent. Medical Necessity - Tobacco Use Smoking Status: Current every day smoker Tobacco Use: Cigarettes Assessment/Plan 1. Non-ST segment elevation FL At the present time the patient has findings compatible with a non-ST segment elevation FL. It is unclear whether the patient has been diagnosed in the past with underlying CAD and received PCI versus having a non-CAD related cardiovascular diagnosis. It is unclear at this time whether this finding represents true type I acute coronary syndrome versus a type II supply demand mismatch related event which may be secondary to her multiple organ failure events, etc. She can be treated medically. There is some concern of adding aspirin or antiplatelet agents or anticoagulants based upon her underlying coagulopathy. Nitrates can be used as needed. She is on beta-codie therapy. Lipid-lowering agent such as statins are on hold at this time secondary to her marked hepatic transaminase elevation. She may need to be considered for reevaluation in the cardiac catheterization laboratory. However there would be concern of proceeding in that manner at this time based upon her underlying hepatic failure, coagulopathy, renal failure, etc. If she were needed to pursue with such an event, especially urgent or emergently, these issues would have to be taken into consideration based upon the increased risk in such a procedure including the concern of IV contrast related nephropathy and progressive/possibly permanent renal insufficiency/failure. Such a procedure, based upon her risks, may need to be performed at a tertiary care center. 2. Cardiomyopathy Based upon her recent transthoracic echocardiogram her overall LV systolic function appears to be mildly diminished. She will continue medical therapy as able. She will continue with dialysis to assist with volume control. 3. Hypertension Her medications can be adjusted as deemed appropriate. However consideration will have to be given to use medications hopefully can avoid interaction with her hepatic issues/renal issues. 4. GI bleed She has had a history of underlying GI bleed. She has been evaluated for such. She continues with the need for additional evaluation when she is considered stable for such. 5. Hepatic failure He has marked elevation of her hepatic transaminase levels. This may be multifactorial in etiology. She is being evaluated by internal medicine and the critical care medicine staff. She may need further gastrointestinal evaluation by GI/hepatology. This cannot occur here she may need to be transferred to a tertiary care center for such. 6. Coagulopathy Her INR is elevated. This may be secondary to her underlying hepatic insufficiency. Again she will continue evaluation care as noted above. However this does raise concerns about invasive procedures. 7. Renal insufficiency Her creatinine level is declining. She may be developing a hepatorenal syndrome. He is now receiving hemodialysis. Ideally should be considered for further evaluation significant illness with multiple organ failure and increased risks of such an invasive procedure. Again if this were required. In the meantime as best as possible as described above. She will continue multiple consultation/evaluation by other specialists/subspecialist to assist in her diagnosis and therapy. She may need to be considered for transfer to a tertiary care center for additional evaluation and care that may not necessarily be available at [facility]. This note was generated using a voice recognition system and there may be incorrect words, spelling or punctuation that were not noted when reviewing the office note prior to saving.
--- NOTE | 2018-07-29 11:47 | PN.CARD_ITS ---
Subjectve: The patient appears to be somewhat more awake and alert today. She denies ongoing chest discomfort or acute respiratory related symptoms. She is und ergoing hemodialysis. Objective: Vital Signs Temp Pulse Resp BP Pulse Ox 97.5 F L 86 18 152/76 H 96 07/29/18 09:00 07/29/18 09:00 07/29/18 09:00 07/29/18 09:00 07/29/18 09:00 Oxygen Flow Rate (L/min) 2 Oxygen Delivery Method Nasal Cannula Weight: 229 lb 15.074 oz Body Mass Index (BMI) 33.5 Finger Stick Blood Glucose 199 Intake and Output for Last 24 Hours 07/27/18 07/28/18 07/29/18 23:59 23:59 23:59 Intake Total 1464.9 / 1464.9 2135.8 / 2135.8 20 / 20 Output Total 105 / 105 80 / 80 60 / 60 Balance 1359.9 / 1359.9 2055.8 / 2055.8 -40 / -40 General: Awake, Cooperative, Ill Appearing Neck: Supple, Good ROM Lungs: Clear to auscultation Cardiovascular: Regular Rhythm, Normal S1, Normal S2 Abdomen: Bowel Sounds Present, Soft Extremities: No edema 07/28/18 15:50: Troponin I 3.520 H* 07/28/18 15:50: Total Bilirubin 1.10 H, Direct Bilirubin 0.62 H 07/29/18 04:30: Sodium 141, Potassium 3.9, Chloride 101, Carbon Dioxide 28.0, BUN 34 H, Creatinine 3.80 H, Est GFR (MDRD) Af Amer 15 L, Est GFR (MDRD) Non-Af 13 L, BUN/Creatinine Ratio 8.9 L, Glucose 107 H, Calcium 7.6 L, Phosphorus 5.2 H , Total Bilirubin 1.10 H, Direct Bilirubin 0.73 H 07/29/18 04:30: WBC 7.4, RBC 3.73 L, Hgb 10.5 L, Hct 32.9 L, MCV 88.2, MCH 28.2, MCHC 31.9 L, RDW 14.2, RDW Differential 44.2 H, Plt Count 134 L, MPV 10.1, Immature Gran % (Auto) 0.300, Neut % (Auto) 85.1 H, Lymph % (Auto) 8.7 L, [place] % (Auto) 5.1, Eos % (Auto) 0.7, Baso % (Auto) 0.1, Absolute Neuts (auto) 6.3, Total Counted Not Reportable 07/29/18 04:30: PT 26.1 H, INR 2.4 Rhythm: Sinus rhythm ECHO: Interpretation Summary The study was technically difficult. Contrast injection was performed. Mild segmental systolic dysfunction (see wall motion). The estimated ejection fraction is 45 %. The left atrium is moderately enlarged. The right atrium is mildly enlarged. There is mild mitral annular calcification. Mild diffuse mitral valve thickening. Mild mitral valve stenosis. Mild (1+) mitral valve insufficiency. Mild tricuspid valve insufficiency. Mild focal aortic valve thickening. Trivial aortic valve insufficiency. Trivial pulmonic valve insufficiency. Trivial pericardial effusion. There are no echocardiographic indications of cardiac tamponade. Right ventricular systolic pressure estimated to be 71 mmHg c/w pulmonary hypertension. There is evidence of diastolic dysfunction. Previous [facility] medical records demonstrate a [facility] echocardiogram on 03-15-15 which commented upon left ventricular regional wall motion abnormalities in the inferior, inferior lateral, and distal anterior distribution with an overall LVEF of 58%. Cardiac Cath: [facility] cardiac catheterization from 03-18-15 commented upon LAD ostial 50-60% stenosis, LCx with no significant disease, and RCA with mid 30% stenosis PCI: [facility] PCI from 03-18-15, and upon LAD PCI/PETER with a Promus 3.0 x 12 mm stent. Medical Necessity - Tobacco Use Smoking Status: Current every day smoker Tobacco Use: Cigarettes Assessment/Plan 1. Non-ST segment elevation [place] At the present time the patient has findings compatible with a non-ST segment elevation [place]. It is unclear whether the patient has been diagnosed in the past with underlying CAD and received PCI versus having a non-CAD related cardiovascular diagnosis. It is unclear at this time whether this finding represents true type I acute coronary syndrome versus a type II supply demand mismatch related event which may be secondary to her multiple organ failure events, etc. She can be treated medically. There is some concern of adding aspirin or antiplatelet agents or anticoagulants based upon her underlying coagulopathy. Nitrates can be used as needed. She is on beta-codei therapy. Lipid-lowering agent such as statins are on hold at this time secondary to her marked hepatic transaminase elevation. She may need to be considered for reevaluation in the cardiac catheterization laboratory. However there would be concern of proceeding in that manner at this time based upon her underlying hepatic failure, coagulopathy, renal failure, etc. If she were needed to pursue with such an event, especially urgent or emergently, these issues would have to be taken into consideration based upon the increased risk in such a procedure including the concern of IV contrast related nephropathy and progressive/possibly permanent renal insufficiency/failure. Such a procedure, based upon her risks, may need to be performed at a tertiary care center. 2. Cardiomyopathy Based upon her recent transthoracic echocardiogram her overall LV systolic function appears to be mildly diminished. She will continue medical therapy as able. She will continue with dialysis to assist with volume control. 3. Hypertension Her medications can be adjusted as deemed appropriate. However consideration will have to be given to use medications hopefully can avoid interaction with her hepatic issues/renal issues. 4. GI bleed She has had a history of underlying GI bleed. She has been evaluated for such. She continues with the need for additional evaluation when she is considered stable for such. 5. Hepatic failure He has marked elevation of her hepatic transaminase levels. This may be multifactorial in etiology. She is being evaluated by internal medicine and the critical care medicine staff. She may need further gastrointestinal evaluation by GI/hepatology. This cannot occur here she may need to be transferred to a tertiary care center for such. 6. Coagulopathy Her INR is elevated. This may be secondary to her underlying hepatic insufficiency. Again she will continue evaluation care as noted above. However this does raise concerns about invasive procedures. 7. Renal insufficiency Her creatinine level is declining. She may be developing a hepatorenal syndrome. He is now receiving hemodialysis. Ideally should be considered for further evaluation significant illness with multiple organ failure and increased risks of such an invasive procedure. Again if this were required. In the meantime as best as possible as described above. She will continue multiple consultation/evaluation by other specialists/subspecialist to assist in her diagnosis and therapy. She may need to be considered for transfer to a tertiary care center for additional evaluation and care that may not necessarily be available at [facility]. This note was generated using a voice recognition system and there may be incorrect words, spelling or punctuation that were not noted when reviewing the office note prior to saving.
[2018-07-29] MEDS: Heparin 10,000 UNITS/10 ML Vial IV (12:42)
--- NOTE | 2018-07-29 12:57 | DIALYSIS ---
Hemodialysis treatment complete. 3 hour run, 3k bath. Net fluid removed = 2050 ml. Patient tolerated HD tx well. Right IJ Janeth: site benign, dressing dry and intact. Lumen flushed with NS, filled to volume with Heparin, capped and clamped. Report given to primary RN, Efrem Sorto.
[2018-07-29] MEDS: Metoprolol Tartrate 25 MG Tablet PO ×2 (14:01→21:33)
[2018-07-29] MEDS: oxyCODONE 5 MG Tablet PO ×2 (14:06→21:32)
[2018-07-29] MEDS: Glucerna Shake 120 ML LIQUID PO ×3 (14:06→21:32)
[2018-07-29] MEDS: 0.9% NaCl Peripheral Flush Adult/Peds IV ×3 (14:08→21:34)
[2018-07-29] MEDS: CHLORHEXIDINE GLUC 2% CLOTH 1 EACH TOWELETTE TOPICAL (14:15)
[2018-07-29] MEDS: Nystatin Powder 15gm Bottle 1 APPLIC TOPICAL ×2 (14:21→17:47)
[2018-07-29] MEDS: hydrALAZINE 25 MG Tablet PO (14:51)
[2018-07-29 14:56] LABS: Bedside Glucose 101 mg/dL (70-110)
[2018-07-29 16:30] LABS: Bedside Glucose 115 mg/dL (70-110)
--- NOTE | 2018-07-29 18:52 | PCM.PN.REN ---
Patient Problems: Active and Suspected Problems Shock, unspecified (Acute) GI bleed (Acute) Acute liver failure (Acute) Coagulopathy (Acute) UTI (urinary tract infection) (Acute) Hepatic encephalopathy (Acute) Acute renal insufficiency (Acute) Acute renal failure (Acute) Subjective: No nausea no vomiting. No shortness of breath. Patient had hemodialysis earlier today which tolerated well - Physical Exam General: Alert, Oriented x3 HEENT: Atraumatic Oral: Moist Mucosa Neck: Supple Lungs: Clear to auscultation, Normal air movement, No rhonchi Cardiovascular: Regular rate, Regular Rhythm, Normal S1, Normal S2 Abdomen: Bowel Sounds Present, Soft, Non Tender, Non-Distended Extremities: No clubbing, No cyanosis, No edema Skin: No rashes Musculoskeletal: No Tenderness to Palpation of Joints or Extremities Lymphatic: No Cervical, Supraclavicular, or Inguinal Adenopathy Neurological: Cranial nerves II-XII grossly intact, Neuro grossly intact Psych/Mental Status: Normal Affect Vital Signs Temp Pulse Resp BP Pulse Ox 98 F 86 18 161/64 H 99 07/29/18 15:00 07/29/18 15:13 07/29/18 15:00 07/29/18 15:00 07/29/18 15:00 Oxygen Flow Rate (L/min) 2 Oxygen Delivery Method Nasal Cannula Weight: 104.3 kg Body Mass Index (BMI) 33.5 Finger Stick Blood Glucose 199 Intake and Output for Last 24 Hours 07/27/18 07/28/18 07/29/18 23:59 23:59 23:59 Intake Total 1464.9 / 1464.9 2135.8 / 2135.8 380 / 380 Output Total 105 / 105 80 / 80 2160 / 2160 Balance 1359.9 / 1359.9 2055.8 / 2055.8 -1780 / -1780 Microbiology Past 72 Hours 07/27/18 12:00 Blood Culture - Preliminary Blood Culture (Wb) - Other No growth in 48 hours. 07/27/18 10:30 Blood Culture - Preliminary Blood Culture (Wb) - Other No growth in 48 hours. 07/27/18 15:55 Urine Culture - Preliminary Urine Catheter - Catheter Culture exhibits no growth. 07/27/18 14:55 Respiratory Panel (PCR) - Final Mucosa - Nasopharyngeal Laboratory Tests Past 24 Hrs 07/29/18 07/29/18 07/29/18 04:30 04:30 04:30 WBC 7.4 RBC 3.73 L Hgb 10.5 L Hct 32.9 L MCV 88.2 MCH 28.2 MCHC 31.9 L RDW 14.2 RDW Differential 44.2 H Plt Count 134 L MPV 10.1 Immature Gran % (Auto) 0.300 Neut % (Auto) 85.1 H Lymph % (Auto) 8.7 L [place] % (Auto) 5.1 Eos % (Auto) 0.7 Baso % (Auto) 0.1 Absolute Neuts (auto) 6.3 Absolute Lymphs (auto) 0.64 L Total Counted Not Reportable PT 26.1 H INR 2.4 Sodium 141 Potassium 3.9 Chloride 101 Carbon Dioxide 28.0 BUN 34 H Creatinine 3.80 H Estim Creat Clear Calc 15.42 Est GFR (MDRD) Af Amer 15 L Est GFR (MDRD) Non-Af 13 L BUN/Creatinine Ratio 8.9 L Glucose 107 H Calcium 7.6 L Phosphorus 5.2 H Total Bilirubin 1.10 H Direct Bilirubin 0.73 H AST 2544 H ALT 3416 H Alkaline Phosphatase 193 H Total Protein 5.4 L Albumin 2.7 L Globulin 2.7 POC Glucose 07/29/18 07/29/18 07/28/18 16:27 14:24 21:44 POC Glucose 115 H 101 112 H Medical Necessity - Tobacco Use Smoking Status: Current every day smoker Tobacco Use: Cigarettes Assessment/Plan All Active Problems Frequent falls (Acute) Shock, unspecified (Acute) GI bleed (Acute) Acute liver failure (Acute) Coagulopathy (Acute) UTI (urinary tract infection) (Acute) Hepatic encephalopathy (Acute) Acute renal insufficiency (Acute) Acute renal failure (Acute) Lightheadedness (Acute) Unsteady gait (Acute) Headache (Acute) Chest pain (Acute) Weakness of both arms (Resolved) Numbness and tingling of right face (Resolved) Difficulty speaking (Resolved) NSTEMI (non-ST elevated myocardial infarction) (Resolved) Jaw pain (Resolved) 1-acute kidney injury from possible hepatorenal syndrome.UA showed protein 100, WBC 25-50 RBC 12 25. GN needs t o be rule out. Will order C3/C4 RANDY, ANCA Currently the patient hemodialysis dependent due to metabolic support. Hemodialysis started on March 29. No recovery of kidney function. Patient remains oliguric. Patient had second hemodialysis session today. Avoid NSAIDs/BYRON or ARB. I will continue to monitor for kidney function. 2-hyperkalemia: Resolved with hemodialysis. 3-acute liver injury. Possible from medication. LFTs trend is improving. 4-non-ST NV. Cardiology service is following. No plan for cardiac cath for now. Medical treatment as per the cardiology service Renal team will continue to follow. Please call with any question Behzad Jordan MD
[2018-07-29] MEDS: hydrALAZINE 50 MG Tablet PO (21:34)
[2018-07-29 21:56] LABS: Bedside Glucose 141 mg/dL (70-110)
[2018-07-30] VITALS (16 sets, daily range): BP systolic 139–172; BP diastolic 59–75; PULSE 78–93; RESP 16–18; TEMP 36.6–37.3; O2SAT 94–98
[2018-07-30 05:57] LABS: Absolute Lymphocyte Count 0.66 X10^3/ul (0.83-4.51); Absolute Neutrophil Count 5.2 X10^3/uL (2.0-7.7); Basophil# 0.01 X10^3/uL; Basophil% 0.2 % (0-1); Eosinophil# 0.09 X10^3/uL; Eosinophils% 1.4 % (0-5); Hemoglobin 10.3 g/dl (12.0-15.0); Lymphocyte # 0.66 X10^3/ul (4.0); Lymphocyte % 10.1 % (19-41); Mean Corp Hgb Conc 32.2 g/gl (32-36); Mean Corpuscular Hgb 28.3 pg (27.0-32.0); Mean Corpuscular Volume 87.9 fL (81-99); Mean Platelet Vol. 10.2 fl (6.2-12.0); Monocyte# 0.53 X10^3/uL; Monocyte% 8.1 % (0-10); Neutrophil # 5.23 X10^3/uL (2.7-7.7); Neutrophil % 79.9 % (47-70); Platelet Count 133 K/mm3 (150-450); RBC Distribution Width CV 14.4 % (11.6-14.6); RBC Distribution Width SD 44.8 fl (35.1-43.9); Red Blood Count 3.64 M/mm3 (4.2-5.4); White Blood Count 6.5 K/mm3 (4.4-11.0)
[2018-07-30 05:58] LABS: POSITIVE COUNT NO; POSITIVE DIFFERENTIAL NO; POSITIVE MORPHOLOGY NO
[2018-07-30 05:59] LABS: International Normalized Ratio 1.6; Prothrombin Time (Protime)PT. 18.9 SECONDS (11.7-14.9)
[2018-07-30 06:21] LABS: AST(SGOT) 707 U/L (15-37); Alanine Aminotransfer ALT/SGPT 2001 U/L (13-56); Albumin, Serum 2.6 g/dL (3.2-5.0); Alkaline Phosphatase 195 U/L (45-117); BUN 33 mg/dL (7-18); BUN/Creat Ratio 8.2 RATIO (10-20); Bilirubin, Direct 0.69 mg/dL (0.00-0.30); Calcium,Total 7.7 mg/dL (8.5-10.1); Chloride 99 mmol/L (98-107); Creatinine, Serum 4.03 mg/dL (0.55-1.02); EST Glomerular Filtration Rate 12 mL/min (>60); Est Glom Filt Rate - Afr Amer 14 mL/min (>60); Estimated Creatinine Clearance 14.54 ml/min; Glucose 127 mg/dL (74-106); Phosphorus 4.7 mg/dL (2.5-4.9); Potassium 3.9 mmol/L (3.5-5.1); Protein, Total 5.6 g/dL (6.4-8.2); Sodium Level 136 mmol/L (136-145)
--- NOTE | 2018-07-30 06:50 | PN.SURG_ITS ---
Patient Problems: Active and Suspected Problems Shock, unspecified (Acute) GI bleed (Acute) Acute liver failure (Acute) Coagulopathy (Acute) UTI (urinary tract infection) (Acute) Hepatic encephalopathy (Acute) Acute renal insufficiency (Acute) Acute renal failure (Acute) Subjective: had bowel movement yesterday, green, non bloody - Physical Exam General: Alert, Oriented x3 Lungs: Diminished, - - few crackles Cardiovascular: Regular rate, Regular Rhythm Abdomen: Bowel Sounds Present, Soft, Non Tender Vital Signs Temp Pulse Resp BP Pulse Ox 98.1 F 93 18 143/72 H 94 07/30/18 03:30 07/30/18 03:30 07/30/18 03:30 07/30/18 03:30 07/30/18 03:30 Oxygen Flow Rate (L/min) 3 Oxygen Delivery Method Nasal Cannula Weight: 104.5 kg Body Mass Index (BMI) 33.5 Finger Stick Blood Glucose 199 Intake and Output for Last 24 Hours 07/28/18 07/29/18 07/30/18 23:59 23:59 23:59 Intake Total 2135.8 / 2135.8 500 / 500 Output Total 80 / 80 2160 / 2160 25 / 25 Balance 2055.8 / 2055.8 -1660 / -1660 -25 / -25 Microbiology Past 72 Hours 07/27/18 12:00 Blood Culture - Preliminary Blood Culture (Wb) - Other No growth in 48 hours. 07/27/18 10:30 Blood Culture - Preliminary Blood Culture (Wb) - Other No growth in 48 hours. 07/27/18 15:55 Urine Culture - Preliminary Urine Catheter - Catheter Culture exhibits no growth. 07/27/18 14:55 Respiratory Panel (PCR) - Final Mucosa - Nasopharyngeal Laboratory Tests Past 24 Hrs 07/29/18 07/29/18 07/30/18 20:15 20:15 05:38 WBC RBC Hgb Hct MCV MCH MCHC RDW RDW Differential Plt Count MPV Immature Gran % (Auto) Neut % (Auto) Lymph % (Auto) [place] % (Auto) Eos % (Auto) Baso % (Auto) Absolute Neuts (auto) Absolute Lymphs (auto) Total Counted PT INR Sodium 136 Potassium 3.9 Chloride 99 Carbon Dioxide 26.0 BUN 33 H Creatinine 4.03 H Estim Creat Clear Calc 14.54 Est GFR (MDRD) Af Amer 14 L Est GFR (MDRD) Non-Af 12 L BUN/Creatinine Ratio 8.2 L Glucose 127 H Calcium 7.7 L Phosphorus 4.7 Total Bilirubin 1.20 H Direct Bilirubin 0.69 H AST 707 H ALT 2001 H Alkaline Phosphatase 195 H Total Protein 5.6 L Albumin 2.6 L Globulin 3.0 RANDY Screen Pending c-ANCA Antibody Pending p-ANCA Antibody Pending DAVID-1 Antibody Pending SS-A/Ro IgG Antibody Pending SS-B/La IgG Antibody Pending Sm (Sweet) Antibody Pending [employer] Antibody Pending Scl-70 Scleroderma Ab Pending Double Strand DNA Ab Pending Centromere B Antibody Pending Glomerular Base Memb Ab Pending Complement C3 Pending Complement C4 Pending 07/30/18 07/30/18 05:38 05:38 WBC 6.5 RBC 3.64 L Hgb 10.3 L Hct 32.0 L MCV 87.9 MCH 28.3 MCHC 32.2 RDW 14.4 RDW Differential 44.8 H Plt Count 133 L MPV 10.2 Immature Gran % (Auto) 0.300 Neut % (Auto) 79.9 H Lymph % (Auto) 10.1 L [place] % (Auto) 8.1 Eos % (Auto) 1.4 Baso % (Auto) 0.2 Absolute Neuts (auto) 5.2 Absolute Lymphs (auto) 0.66 L Total Counted Not Reportable PT 18.9 H INR 1.6 Sodium Potassium Chloride Carbon Dioxide BUN Creatinine Estim Creat Clear Calc Est GFR (MDRD) Af Amer Est GFR (MDRD) Non-Af BUN/Creatinine Ratio Glucose Calcium Phosphorus Total Bilirubin Direct Bilirubin AST ALT Alkaline Phosphatase Total Protein Albumin Globulin RANDY Screen c-ANCA Antibody p-ANCA Antibody DAVID-1 Antibody SS-A/Ro IgG Antibody SS-B/La IgG Antibody Sm (Sweet) Antibody [employer] Antibody Scl-70 Scleroderma Ab Double Strand DNA Ab Centromere B Antibody Glomerular Base Memb Ab Complement C3 Complement C4 POC Glucose 07/29/18 07/29/18 07/29/18 21:32 16:27 14:24 POC Glucose 141 H 115 H 101 Medical Necessity - Tobacco Use Smoking Status: Current every day smoker Tobacco Use: Cigarettes Assessment/Plan All Active Problems Frequent falls (Acute) Shock, unspecified (Acute) GI bleed (Acute) Acute liver failure (Acute) Coagulopathy (Acute) UTI (urinary tract infection) (Acute) Hepatic encephalopathy (Acute) Acute renal insufficiency (Acute) Acute renal failure (Acute) Lightheadedness (Acute) Unsteady gait (Acute) Headache (Acute) Chest pain (Acute) Weakness of both arms (Resolved) Numbness and tingling of right face (Resolved) Difficulty speaking (Resolved) NSTEMI (non-ST elevated myocardial infarction) (Resolved) Jaw pain (Resolved) acute liver injury-likely secondary to alcohol abuse and steatohepatitis, lower GI bleeding, Electrolyte abnormalities, dehydration, hypotension The patient is currently admitted to the ICU. She has a central catheter placed. Vitals are stable her liver transaminases now normalizing with relatively normal bilirubin and alkaline phosphatase. CT scan of the abdomen with contrast demonstrated no portal vein thrombosis or hepatic vein thrombosis. Etiology is likely a combination of alcoholic hepatitis and steatohepatitis. Patient remains anuric. hepatorenal syndrome? Ongoing dialysis. Hemoglobin stable-no further GI bleeding noted-we will hold endoscopy for now unless the patient actively bleeding. When cardiology and medicine services are comfortable that she is appropriate for bowel prep and sedation, will plan for upper and lower endoscopy
[2018-07-30 07:05] LABS: Bedside Glucose 120 mg/dL (70-110)
[2018-07-30] MEDS: oxyCODONE 5 MG Tablet PO ×2 (08:04→15:43)
--- NOTE | 2018-07-30 08:05 | PN_ITS ---
Patient Problems: Active and Suspected Problems Shock, unspecified (Acute) GI bleed (Acute) Acute liver failure (Acute) Coagulopathy (Acute) UTI (urinary tract infection) (Acute) Hepatic encephalopathy (Acute) Acute renal insufficiency (Acute) Acute renal failure (Acute) Vitals/I&O's: Vital Signs Temp Pulse Resp BP Pulse Ox 98.1 F 93 18 143/72 H 98 07/30/18 03:30 07/30/18 03:30 07/30/18 03:30 07/30/18 03:30 07/30/18 06:47 Oxygen Flow Rate (L/min) 3 Oxygen Delivery Method Nasal Cannula Weight: 230 lb 6.129 oz Body Mass Index (BMI) 33.5 Finger Stick Blood Glucose 199 Intake and Output for Last 24 Hours 07/28/18 07/29/18 07/30/18 23:59 23:59 23:59 Intake Total 2135.8 / 2135.8 500 / 500 Output Total 80 / 80 2160 / 2160 25 / 25 Balance 2055.8 / 2055.8 -1660 / -1660 -25 / -25 Microbiology Past 72 Hours 07/27/18 12:00 Blood Culture (Wb) - Other Blood Culture - Preliminary No growth in 48 hours. 07/27/18 10:30 Blood Culture (Wb) - Other Blood Culture - Preliminary No growth in 48 hours. 07/27/18 15:55 Urine Catheter - Catheter Urine Culture - Preliminary Culture exhibits no growth. 07/27/18 14:55 Mucosa - Nasopharyngeal Respiratory Panel (PCR) - Final Laboratory Results 07/29/18 14:24: POC Glucose 101 07/29/18 16:27: POC Glucose 115 H 07/29/18 20:15: RANDY Screen Pending, DAVID-1 Antibody Pending, SS-A/Ro IgG Antibody Pending, SS-B/La IgG Antibody Pending, Sm (Sweet) Antibody Pending, RN PICU Antibody Pending, Scl-70 Scleroderma Ab Pending, Double Strand DNA Ab Pending, Centromere B Antibody Pending 07/29/18 20:15: c-ANCA Antibody Pending, p-ANCA Antibody Pending, Glomerular Base Memb Ab Pending, Complement C3 Pending, Complement C4 Pending 07/29/18 21:32: POC Glucose 141 H 07/30/18 05:38: Sodium 136, Potassium 3.9, Chloride 99, Carbon Dioxide 26.0, BUN 33 H, Creatinine 4.03 H, Estim Creat Clear Calc 14.54, Est GFR (MDRD) Af Amer 14 L, Est GFR (MDRD) Non-Af 12 L, BUN/Creatinine Ratio 8.2 L, Glucose 127 H, Calcium 7.7 L, Phosphorus 4.7, Total Bilirubin 1.20 H, Direct Bilirubin 0.69 H, AST 707 H, ALT 2001 H, Alkaline Phosphatase 195 H, Total Protein 5.6 L, Albumin 2.6 L, Globulin 3.0 07/30/18 05:38: WBC 6.5, RBC 3.64 L, Hgb 10.3 L, Hct 32.0 L, MCV 87.9, MCH 28.3, MCHC 32.2, RDW 14.4, RDW Differential 44.8 H, Plt Count 133 L, MPV 10.2, Immature Gran % (Auto) 0.300, Neut % (Auto) 79.9 H, Lymph % (Auto) 10.1 L, [place] % (Auto) 8.1, Eos % (Auto) 1.4, Baso % (Auto) 0.2, Absolute Neuts (auto) 5.2, Absolute Lymphs (auto) 0.66 L, Total Counted Not Reportable 07/30/18 05:38: PT 18.9 H, INR 1.6 07/30/18 06:59: POC Glucose 120 H Current Medications Heparin Sodium (Porcine) () 2,500 units IV UD PRN PRN Reason: HEPARIN FLUSH Hydralazine HCl (Apresoline Iv) 10 mg IV Q4H PRN PRN PRN Reason: SBP>200 MMHG Hydralazine HCl (Apresoline) 50 mg PO TID [facility] Last Admin: 07/29/18 22:20 Dose: Not Given Sodium Chloride () 250 mls @ 15 mls/hr IV .[id number] PRN PRN Reason: SALINE FLUSH Last Admin: 07/27/18 21:44 Dose: 15 mls/hr Pantoprazole Sodium 40 mg/ (Sodium Chloride) 110 mls @ 330 mls/hr IV Q24 NELIDA Last Admin: 07/29/18 14:30 Dose: 330 mls/hr Insulin Human Lispro (Humalog Kwikpen (Bkc)) 0 unit SC ACHS [facility]; Protocol Last Admin: 07/30/18 07:04 Dose: Not Given Metoprolol Tartrate (Lopressor (Beta Denis)) 25 mg PO BID [facility] Last Admin: 07/29/18 21:33 Dose: 25 mg Nitroglycerin (Nitrostat) 0.4 mg SUBLINGUAL Q5M PRN PRN Reason: CARDIAC/CHEST PAIN Nutritional Formula (Lactose Free) (Glucerna Shake) 120 ml PO 4X/DAY [facility] Last Admin: 07/29/18 21:32 Dose: 120 ml Nystatin (Mycostatin Powder) 1 applic TOPICAL 4X/DAY [facility] Last Admin: 07/29/18 21:34 Dose: Not Given Ondansetron HCl (Zofran) 4 mg IV Q8H PRN PRN PRN Reason: NAUSEA Oxycodone HCl (Oxyir) 5 - 10 mg PO Q6H PRN PRN PRN Reason: SEVERE PAIN (6-10/10) Last Admin: 07/30/18 08:04 Dose: 5 mg Sodium Chloride () 5 - 15 ml IV UD PRN PRN Reason: SALINE FLUSH Last Admin: 07/29/18 21:34 Dose: 15 ml Sodium Chloride () 10 - 40 ml IV UD PRN PRN Reason: MULTILUMEN/HICMAN CATH FLUSH Last Admin: 07/30/18 05:22 Dose: 20 ml Sodium Chloride () 10 ml IV UD PRN PRN Reason: Dialysis Catheter Flush Triamcinolone Acetonide (Triamcinolone Acetonide) 1 applic TOPICAL BID PRN PRN Reason: RASH/TOPICAL IRRITATION Medical Necessity - Tobacco Use Smoking Status: Current every day smoker Tobacco Use: Cigarettes Assessment/Plan All Active Problems Frequent falls (Acute) Shock, unspecified (Acute) GI bleed (Acute) Acute liver failure (Acute) Coagulopathy (Acute) UTI (urinary tract infection) (Acute) Hepatic encephalopathy (Acute) Acute renal insufficiency (Acute) Acute renal failure (Acute) Lightheadedness (Acute) Unsteady gait (Acute) Headache (Acute) Chest pain (Acute) Weakness of both arms (Resolved) Numbness and tingling of right face (Resolved) Difficulty speaking (Resolved) NSTEMI (non-ST elevated myocardial infarction) (Resolved) Jaw pain (Resolved) The patient is a 63 year old F with multiple comorbidities including chronic back pain on oxycodone, Zanaflex and other medications came to ER with increased weakness for 1-2 days along with rectal bleed for about 12 days. As per triage note, patient also felt he is leaning on the left side. Prior to that, she was in ER recently on 07/16 and 07/25 for lower GI bleed and was seemed controlled and stable and therefore sent home for follow with Dr. Wynn for which she is scheduled for colonoscopy on 07/28. In ED, she was found hypotensive, SBP 90, hypoxic 83% on room air, tachypneic RR 26-30/min but not tachycardic. Basic lab work shows mild leukocytosis but H&H 12.0/38.5. Platelet count 223. INR 2.6, baseline 1.2 on 07/25. Severe hyperkalemia, K6.3, bicarb 23, sodium 133, BUN 33, creatinine 2.94. baseline BUN/creatinine runs 18/1.3. LFT shows significant AST 10,000/ALT 4541. Alk phos 150, total bili 2.3. Her LFTs were normal on 07/25 except alk phos 145. Patient is confused although oriented to time and place and person and therefore history is limited In ED, patient had right subclavian central venous catheter by ER physician. Chest x-ray shows lungs are clear but the tip of right subclavian catheter and right IJ. EKG shows normal sinus rhythm with first-degree AV block, QRS 136 ms, LAD with AV conduction delay. Patient had recent CT abdomen without oral and IV contrast which reported as fatty liver but normal gallbladder and extrahepatic bili system. Normal spleen and pancreas. Normal small intestine and colon. 1. Hypotension most probably from acute liver injury/severe sepsis: Lactic acid is 4.5. Lactic acid may be elevated from hypoperfusion/severe sepsis or acute liver injury. Patient is being admitted in ICU. Patient had IV Zosyn in ED changed to ceftriaxone for possible UTI. Hypotension resolved. Blood pressure is controlled. Stock Wetter follow-up reviewed. 2. Acute liver injury, most probably drug-induced liver injury with mild encephalopathy, most probably metabolic encephalopathy/hepatic encephalopathy: Patient has been taking oxycodone, Zovirax, tizanidine, Klonopin and am itriptyline and Crestor. Hold all home medications except metoprolol. Right upper quadrant sonogram reported as enlarged fatty liver. Patient was treated with NAC drip short time and LFT improved. Serum Tylenol normal. Encephalopathy resolved. Serum ammonia level was little elevated. GGT 69. Slightly elevated. Transaminases improved. AST 700, ALT 2000, alk phos 185. 3. Acute kidney injury on CKD stage III with severe hyperkalemia, possible hepatorenal syndrome: EKG does not show hyperkalemic changes. Patient was given hyperkalemia cocktail in ED. Had Kayexalate. Geodesist is being consulted. Patient is on hemodialysis. Potassium improved on hemodialysis. Still anuric 45 mL urine output since morning 4. Electrolyte abnormalities: ABG shows 7.29/42/79 on 4 L of oxygen. Normal anion gap metabolic acidosis. Hyperkalemia, hyponatremia: Corrected on hemodialysis. 5. Troponins non-STEMI range with history of non-STEMI with chronic systolic heart failure: Patient had echo in 2015 reported as EF 45% with moderate global hypokinesis. Mildly dilated LV. Left atrium moderately enlarged. Mild diffuse mitral thickening with 2+ eccentric MR. Normal tricuspid valve. Normal aortic valve. She had normal pharmacological stress test in November 2014. Patient was seen by Dr. Qureshi in 2014, [facility] unit secretary. As per his note, patient had cardiac cath in past with normal epicardial coronaries. Differential diagnosis was Takasubo or microvascular angina or vasospasm angina. Denies chest pain this time. High School Music Instructor has been consulted. Patient is not stable for cardiac cath. Echo reported as EF 45% with evidence of diastolic dysfunction and segmental systolic dysfunction. Left atrium moderately enlarged. Mild MR. Mild mitral stenosis. Mild TR, RVSP 71 mmHg. I think, we can hold off for cardiac cath as patient just had a CT abdomen with contrast prior to hemodialysis and her kidney function is not recovered. 6. Lower GI bleed since admission: Colonoscopy once patient is more stable. Chronic nicotine use: Patient smokes 1 pack cigarettes daily since teenage. She admits drinking alcohol twice a week about 5-6 shots of whiskey for last 3 weeks continuously. Denies chronic alcohol use but she gets alcohol withdrawal symptoms like tremors and shaking if does not drink; Therefore she has chronic alcohol use and dependence Hypertension: On hydralazine 25 mg twice daily. Other multiple comorbidities include multiple degenerative joint disease, chronic back pain on pain medications, depression, irritable bowel syndrome, anxiety and depression: Prognosis is guarded. DVT prophylaxis: On bilateral SCDs. Pharmacological prophylaxis contraindicated secondary to coagulopathy and acute liver injury. Microbiology Past 72 Hours 07/27/18 15:55 Urine Catheter - Catheter Urine Culture - Final Culture exhibits no growth. 07/27/18 12:00 Blood Culture (Wb) - Other Blood Culture - Preliminary No growth in 48 hours. 07/27/18 10:30 Blood Culture (Wb) - Other Blood Culture - Preliminary No growth in 48 hours. 07/27/18 14:55 Mucosa - Nasopharyngeal Respiratory Panel (PCR) - Final Laboratory Results 07/30/18 05:38: Sodium 136, Potassium 3.9, Chloride 99, Carbon Dioxide 26.0, BUN 33 H, Creatinine 4.03 H, Estim Creat Clear Calc 14.54, Est GFR (MDRD) Af Amer 14 L, Est GFR (MDRD) Non-Af 12 L, BUN/Creatinine Ratio 8.2 L, Glucose 127 H, Calcium 7.7 L, Phosphorus 4.7, Total Bilirubin 1.20 H, Direct Bilirubin 0.69 H, AST 707 H, ALT 2001 H, Alkaline Phosphatase 195 H, Total Protein 5.6 L, Albumin 2.6 L, Globulin 3.0 07/30/18 05:38: WBC 6.5, RBC 3.64 L, Hgb 10.3 L, Hct 32.0 L, MCV 87.9, MCH 28.3, MCHC 32.2, RDW 14.4, RDW Differential 44.8 H, Plt Count 133 L, MPV 10.2, Immature Gran % (Auto) 0.300, Neut % (Auto) 79.9 H, Lymph % (Auto) 10.1 L, [place] % (Auto) 8.1, Eos % (Auto) 1.4, Baso % (Auto) 0.2, Absolute Neuts (auto) 5.2, Absolute Lymphs (auto) 0.66 L, Total Counted Not Reportable 07/30/18 05:38: PT 18.9 H, INR 1.6 07/27/18 12:04: Urine Color Yellow, Urine Clarity Sl. Cloudy, Urine pH 5.0, Ur Specific [place] 1.025, Urine Protein 100 H, Urine Glucose (UA) Normal, Urine Ketones 5 H, Urine Occult Blood 250 H, Urine Nitrite Negative, Urine Bilirubin 3 H, Urine Urobilinogen 4 H, Ur Leukocyte Esterase 100 H, Urine RBC 25-50 SEEN, Urine WBC 10-25 SEEN, Ur Squamous Epith Cells 0-5 SEEN, Amorphous Sediment 2+, Urine Bacteria 1+, Urine Mucus 0 SEEN Clinical Impression(s) from Imaging Studies Abdomen Ultrasound 07/27/18 14:45 IMPRESSION: Enlarged fatty liver. Mild pericholecystic fluid. Abdomen CT 07/28/18 09:54 IMPRESSION: Small right pleural effusion with underlying infiltration and/or atelectasis. The portal vein as well as the hepatic veins are patent. Chest X-Ray 07/28/18 10:44 IMPRESSION: The tip of the right internal jugular dialysis catheter is in the proximal portion of the superior vena cava. Code Visit Inpatient E&M: 62044 Subs Hosp L2
--- NOTE | 2018-07-30 08:23 | PN_ITS ---
Patient Problems: Active and Suspected Problems Shock, unspecified (Acute) GI bleed (Acute) Acute liver failure (Acute) Coagulopathy (Acute) UTI (urinary tract infection) (Acute) Hepatic encephalopathy (Acute) Acute renal insufficiency (Acute) Acute renal failure (Acute) Subjective: The patient was seen and examined at the bedside this morning. Events from the last 24 hours have been reviewed. The patient is currently afebrile, hemodynamically stable and maintaining appropriate oxygen saturations on 2 L/min via nasal cannula. Transaminase levels continue to improve. Synthetic function is also improved with an INR noted to be 1.6 this morning. Objective: The patient's most recent lab work, culture data and imaging studies have all been personally reviewed. Respiratory viral panel was negative. Blood and urine cultures are pending. Head CT revealed chronic involutional changes of the brain. Abdominal ultrasound revealed an enlarged fatty liver with mild pericholecystic fluid. Surface echocardiogram from August 2015 revealed mild concentric LVH with an ejection fraction of 45% and moderate global hypokinesis of the LV. CT abdomen revealed small right pleural effusion. The portal vein as well as the hepatic veins were patent. A repeat surface echocardiogram confirmed mild segmental systolic dysfunction with an ejection fraction of 45%. Right ventricular systolic pressure was estimated to be 71 mmHg. There was also evidence of diastolic dysfunction. - Physical Exam General: Alert, Cooperative, No apparent distress HEENT: Atraumatic, PERRLA, Normocephalic Oral: Moist Mucosa Neck: Supple, No Nodes, Trachea Midline, - - Right IJ temporary hemodialysis catheter in place Lungs: No rhonchi, No wheeze, No rales, Diminished Cardiovascular: Regular rate, Regular Rhythm, Normal S1, Normal S2, No murmurs Abdomen: Bowel Sounds Present, Soft, Non Tender, Obese Extremities: No clubbing, No cyanosis, Edema Skin: No breakdown Musculoskeletal: No Tenderness to Palpation of Joints or Extremities Lymphatic: No Cervical, Supraclavicular, or Inguinal Adenopathy Neurological: Cranial nerves II-XII grossly intact, Neuro grossly intact Psych/Mental Status: Normal Affect, Appropriate Vital Signs Temp Pulse Resp BP Pulse Ox 36.7 C 80 18 143/72 H 98 07/30/18 03:30 07/30/18 06:57 07/30/18 03:30 07/30/18 03:30 07/30/18 06:47 Oxygen Flow Rate (L/min) 2 Oxygen Delivery Method Nasal Cannula Weight: 230 lb 6.129 oz Body Mass Index (BMI) 33.5 Finger Stick Blood Glucose 199 Intake and Output for Last 24 Hours 07/28/18 07/29/18 07/30/18 23:59 23:59 23:59 Intake Total 2135.8 / 2135.8 500 / 500 Output Total 80 / 80 2160 / 2160 25 / 25 Balance 2055.8 / 2055.8 -1660 / -1660 -25 / -25 Microbiology Past 72 Hours 07/27/18 12:00 Blood Culture - Preliminary Blood Culture (Wb) - Other No growth in 48 hours. 07/27/18 10:30 Blood Culture - Preliminary Blood Culture (Wb) - Other No growth in 48 hours. 07/27/18 15:55 Urine Culture - Preliminary Urine Catheter - Catheter Culture exhibits no growth. 07/27/18 14:55 Respiratory Panel (PCR) - Final Mucosa - Nasopharyngeal Laboratory Tests Past 24 Hrs 07/29/18 07/29/18 07/30/18 20:15 20:15 05:38 WBC RBC Hgb Hct MCV MCH MCHC RDW RDW Differential Plt Count MPV Immature Gran % (Auto) Neut % (Auto) Lymph % (Auto) [place] % (Auto) Eos % (Auto) Baso % (Auto) Absolute Neuts (auto) Absolute Lymphs (auto) Total Counted PT INR Sodium 136 Potassium 3.9 Chloride 99 Carbon Dioxide 26.0 BUN 33 H Creatinine 4.03 H Estim Creat Clear Calc 14.54 Est GFR (MDRD) Af Amer 14 L Est GFR (MDRD) Non-Af 12 L BUN/Creatinine Ratio 8.2 L Glucose 127 H Calcium 7.7 L Phosphorus 4.7 Total Bilirubin 1.20 H Direct Bilirubin 0.69 H AST 707 H ALT 2001 H Alkaline Phosphatase 195 H Total Protein 5.6 L Albumin 2.6 L Globulin 3.0 RANDY Screen Pending c-ANCA Antibody Pending p-ANCA Antibody Pending DAVID-1 Antibody Pending SS-A/Ro IgG Antibody Pending SS-B/La IgG Antibody Pending Sm (Sweet) Antibody Pending EXPLORATION DRILLER Antibody Pending Scl-70 Scleroderma Ab Pending Double Strand DNA Ab Pending Centromere B Antibody Pending Glomerular Base Memb Ab Pending Complement C3 Pending Complement C4 Pending 07/30/18 07/30/18 05:38 05:38 WBC 6.5 RBC 3.64 L Hgb 10.3 L Hct 32.0 L MCV 87.9 MCH 28.3 MCHC 32.2 RDW 14.4 RDW Differential 44.8 H Plt Count 133 L MPV 10.2 Immature Gran % (Auto) 0.300 Neut % (Auto) 79.9 H Lymph % (Auto) 10.1 L [place] % (Auto) 8.1 Eos % (Auto) 1.4 Baso % (Auto) 0.2 Absolute Neuts (auto) 5.2 Absolute Lymphs (auto) 0.66 L Total Counted Not Reportable PT 18.9 H INR 1.6 Sodium Potassium Chloride Carbon Dioxide BUN Creatinine Estim Creat Clear Calc Est GFR (MDRD) Af Amer Est GFR (MDRD) Non-Af BUN/Creatinine Ratio Glucose Calcium Phosphorus Total Bilirubin Direct Bilirubin AST ALT Alkaline Phosphatase Total Protein Albumin Globulin RANDY Screen c-ANCA Antibody p-ANCA Antibody DAVID-1 Antibody SS-A/Ro IgG Antibody SS-B/La IgG Antibody Sm (Sweet) Antibody EXPLORATION DRILLER Antibody Scl-70 Scleroderma Ab Double Strand DNA Ab Centromere B Antibody Glomerular Base Memb Ab Complement C3 Complement C4 POC Glucose 07/30/18 07/29/18 07/29/18 06:59 21:32 16:27 POC Glucose 120 H 141 H 115 H 07/29/18 14:24 POC Glucose 101 Clinical Impression(s) from Imaging Studies Brain CT 07/27/18 09:54 IMPRESSION: Chronic involutional changes of the brain. Electronically Signed: Doug Brown, at 11:41 EDT , Service support , Chest X-Ray 07/27/18 10:29 IMPRESSION: The tip of the right subclavian catheter is in the right internal jugular vein. Cardiomegaly. The lungs are clear. Electronically Signed: Doug Brown, at 12:27 EDT , Service support , Abdomen Ultrasound 07/27/18 14:45 IMPRESSION: Enlarged fatty liver. Mild pericholecystic fluid. Electronically Signed: Josse Montenegro, DO at 23:53 EDT Tel [phone], Service support , Abdomen CT 07/28/18 09:54 IMPRESSION: Small right pleural effusion with underlying infiltration and/or atelectasis. The portal vein as well as the hepatic veins are patent. Electronically Signed: Doug Stephanie, at 13:42 EDT , Service support , Chest X-Ray 07/28/18 10:44 IMPRESSION: The tip of the right internal jugular dialysis catheter is in the proximal portion of the superior vena cava. Electronically Signed: Doug Stephanie, at 11:45 EDT , Service support , Medical Necessity - Tobacco Use Smoking Status: Current every day smoker Tobacco Use: Cigarettes Assessment/Plan All Active Problems Frequent falls (Acute) Shock, unspecified (Acute) GI bleed (Acute) Acute liver failure (Acute) Coagulopathy (Acute) UTI (urinary tract infection) (Acute) Hepatic encephalopathy (Acute) Acute renal insufficiency (Acute) Acute renal failure (Acute) Lightheadedness (Acute) Unsteady gait (Acute) Headache (Acute) Chest pain (Acute) Weakness of both arms (Resolved) Numbness and tingling of right face (Resolved) Difficulty speaking (Resolved) NSTEMI (non-ST elevated myocardial infarction) (Resolved) Jaw pain (Resolved) RECOMMENDATIONS: 1. Continue hemodialysis support per nephrology recommendations. 2. Continue daily PPI therapy. 3. Continue to monitor transaminase levels and INR. 4. Encourage incentive spirometer use and mobilize patient as tolerated. 5. Wean supplemental oxygen to maintain saturations at or above 90%. IMPRESSIONS: 1. Acute liver injury/coagulopathy Considerations include toxic effect from medications (drug induced liver injury) and alcohol, with subsequent impaired synthetic function leading to coagulopathy. Additionally, in March 2016, the patient was also noted to have an elevated factor VIII level, which has been shown to be a risk factor for venous thrombosis. A subsequent CT abdomen revealed no evidence of hepatic venous thrombosis. At this time, the patient's transaminase levels are improving. This will be monitored on a daily basis. Continue to avoid potentially hepatotoxic medications. 2. Acute on chronic kidney disease/hyperkalemia Nephrology following to assist with management. Potential concern for hepatorenal syndrome. Continue hemodialysis support as indicated. 3. Rectal bleeding The patient reports rectal bleeding over the last 2 weeks. She was initially referred to undergo endoscopic evaluation on an outpatient basis. At the current time, the patient is not actively bleeding. We will continue to monitor. Surgery is following. 4. Encephalopathy Improved. Most likely metabolic in nature and related to the patient's underlying impaired hepatic function. 5. Troponin elevation/history of systolic heart failure Cardiology is following to assist with medical management. 6. Chronic alcohol and tobacco dependency Monitor for signs of alcohol withdrawal. Nicotine replacement therapy can be considered while the patient is admitted to the hospital. 7. Depression/chronic pain syndrome/hypertension/GERD/hyperlipidemia/obesity Complicates care, management, recovery and prognosis. Continue to hold all potential hepatotoxic medications. Physical therapy to work with the patient. This note was generated with [employer] dictation software. It may contain incorrect words, spelling, and punctuation that were not noted in checking the note before signing. Code Visit Inpatient E&M: 29714 Subs Hosp L2
[2018-07-30] MEDS: Glucerna Shake 120 ML LIQUID PO ×3 (09:37→19:00)
[2018-07-30] MEDS: Nystatin Powder 15gm Bottle 1 APPLIC TOPICAL ×3 (09:38→19:00)
[2018-07-30] MEDS: Metoprolol Tartrate 25 MG Tablet PO ×2 (09:38→22:31)
[2018-07-30] MEDS: 0.9% NaCl Peripheral Flush Adult/Peds IV ×2 (09:43→11:32)
[2018-07-30 11:25] LABS: Bedside Glucose 200 mg/dL (70-110)
[2018-07-30] MEDS: Insulin Lispro 100 UNIT/ML INSULN.PEN SC ×2 (11:31→15:45)
--- NOTE | 2018-07-30 12:09 | PN.CARD_ITS ---
Subjectve: The patient is now in the PCU. She states she is feeling better overall. She denies ongoing chest discomfort or worsening shortness of breath or dyspnea. She continues to require hemodialysis. Objective: Vital Signs Temp Pulse Resp BP Pulse Ox 98.8 F 89 18 139/75 H 94 07/30/18 09:30 07/30/18 09:38 07/30/18 09:30 07/30/18 09:38 07/30/18 09:30 Oxygen Flow Rate (L/min) 2 Oxygen Delivery Method Nasal Cannula Weight: 230 lb 6.129 oz Body Mass Index (BMI) 33.5 Finger Stick Blood Glucose 199 Intake and Output for Last 24 Hours 07/28/18 07/29/18 07/30/18 23:59 23:59 23:59 Intake Total 2135.8 / 2135.8 500 / 500 Output Total 80 / 80 2160 / 2160 25 / 25 Balance 2055.8 / 2055.8 -1660 / -1660 -25 / -25 General: Awake, Alert, Oriented x 3, Cooperative, Ill Appearing HEENT: Atraumatic, Normocephalic, PERRL, EOMI Oral: Moist Mucosa Neck: Supple, Good ROM Lungs: Clear to auscultation Cardiovascular: Regular Rhythm, Premature Ectopic Beats, Normal S1, Normal S2 Abdomen: Bowel Sounds Present, Soft Extremities: No edema Psych/Mental Status: Appropriate 07/30/18 05:38: Sodium 136, Potassium 3.9, Chloride 99, Carbon Dioxide 26.0, BUN 33 H, Creatinine 4.03 H, Est GFR (MDRD) Af Amer 14 L, Est GFR (MDRD) Non-Af 12 L , BUN/Creatinine Ratio 8.2 L, Glucose 127 H, Calcium 7.7 L, Phosphorus 4.7, Total Bilirubin 1.20 H, Direct Bilirubin 0.69 H 07/30/18 05:38: WBC 6.5, RBC 3.64 L, Hgb 10.3 L, Hct 32.0 L, MCV 87.9, MCH 28.3, MCHC 32.2, RDW 14.4, RDW Differential 44.8 H, Plt Count 133 L, MPV 10.2, Immature Gran % (Auto) 0.300, Neut % (Auto) 79.9 H, Lymph % (Auto) 10.1 L, [place] % (Auto) 8.1, Eos % (Auto) 1.4, Baso % (Auto) 0.2, Absolute Neuts (auto) 5.2, Total Counted Not Reportable 07/30/18 05:38: PT 18.9 H, INR 1.6 Rhythm: Sinus rhythm; PVCs Medical Necessity - Tobacco Use Smoking Status: Current every day smoker Tobacco Use: Cigarettes Assessment/Plan 1. Non-ST segment elevation SC At the present time the patient has findings compatible with a non-ST segment elevation SC. It is unclear whether the patient has been diagnosed in the past with underlying CAD and received PCI versus having a non-CAD related cardiovascular diagnosis. It is unclear at this time whether this finding represents true type I acute coronary syndrome versus a type II supply demand mismatch related event which may be secondary to her multiple organ failure events, etc. As her INR has improved she will be placed on aspirin 81 mg a day. If she does well, then depending upon her clinical course, she can be considered for additional antiplatelet therapy. She may need to be considered for reevaluation in the cardiac catheterization laboratory. However there would be concern of proceeding in that manner at this time based upon her underlying hepatic failure and renal failure, etc. If she were needed to pursue with such an event, especially urgent or emergently, these issues would have to be taken into consideration based upon the increased risk in such a procedure including the concern of IV contrast related nephropathy and progressive/possibly permanent renal insufficiency/failure. Such a procedure, based upon her risks, may need to be performed at a tertiary care center. 2. Cardiomyopathy Based upon her recent transthoracic echocardiogram her overall LV systolic function appears to be mildly diminished. She will continue medical therapy as able. She will continue with dialysis to assist with volume control. 3. Hypertension Her medications can be adjusted as deemed appropriate. However consideration will have to be given to use medications hopefully can avoid interaction with her hepatic issues/renal issues. 4. GI bleed She has had a history of underlying GI bleed. She has been evaluated for such. She continues with the need for additional evaluation when she is considered stable for such. 5. Hepatic failure He has marked elevation of her hepatic transaminase levels. They are improving. This may be multifactorial in etiology. She is being evaluated by internal medicine and the critical care medicine staff. She may need further gastrointestinal evaluation by GI/hepatology. This cannot occur here she may need to be transferred to a tertiary care center for such. 6. Coagulopathy Her INR is decreasing. Thus she will initiate aspirin therapy at 81 mg a day. Again depending upon how she does with this and her clinical course she may be given consideration for additional antiplatelet therapy based upon her underlying cardiovascular disease process. 7. Renal insufficiency She continues with hemodialysis. Ideally should be considered for further evaluation significant illness with multiple organ failure and increased risks of such an invasive procedure. In the meantime as best as possible as described above. She will continue multiple consultation/evaluation by other specialists/subspecialist to assist in her diagnosis and therapy. She may need to be considered for transfer to a tertiary care center for additional evaluation and care that may not necessarily be available at [facility]. Comment: The patient's case was discussed and reviewed with the patient and Dr. Ayala. This note was generated using a voice recognition system and there may be incorrect words, spelling or punctuation that were not noted when reviewing the office note prior to saving.
[2018-07-30] MEDS: Aspirin 81 MG TAB.CHEW PO (13:16)
[2018-07-30] MEDS: hydrALAZINE 50 MG Tablet PO ×2 (13:16→22:33)
[2018-07-30 18:16] LABS: Bedside Glucose 158 mg/dL (70-110)
[2018-07-30 22:31] LABS: Bedside Glucose 147 mg/dL (70-110)
[2018-07-31] VITALS (16 sets, daily range): BP systolic 139–169; BP diastolic 60–75; PULSE 79–88; RESP 16–20; TEMP 36.5–37.3; O2SAT 92–96
[2018-07-31] MEDS: 0.9% NaCl Peripheral Flush Adult/Peds IV (05:09)
[2018-07-31 05:57] LABS: Absolute Lymphocyte Count 0.75 X10^3/ul (0.83-4.51); Absolute Neutrophil Count 4.2 X10^3/uL (2.0-7.7); Basophil# 0.01 X10^3/uL; Basophil% 0.2 % (0-1); Eosinophil# 0.13 X10^3/uL; Eosinophils% 2.2 % (0-5); Hematocrit 33.6 % (37-47); Hemoglobin 10.6 g/dl (12.0-15.0); Lymphocyte # 0.75 X10^3/ul (4.0); Lymphocyte % 12.7 % (19-41); Mean Corp Hgb Conc 31.5 g/gl (32-36); Mean Corpuscular Hgb 27.7 pg (27.0-32.0); Mean Platelet Vol. 10.3 fl (6.2-12.0); Monocyte# 0.78 X10^3/uL; Monocyte% 13.2 % (0-10); Neutrophil # 4.21 X10^3/uL (2.7-7.7); Neutrophil % 71.4 % (47-70); Platelet Count 129 K/mm3 (150-450); RBC Distribution Width CV 14.7 % (11.6-14.6); RBC Distribution Width SD 46.1 fl (35.1-43.9); Red Blood Count 3.82 M/mm3 (4.2-5.4); White Blood Count 5.9 K/mm3 (4.4-11.0)
[2018-07-31 05:58] LABS: International Normalized Ratio 1.3; Prothrombin Time (Protime)PT. 16.2 SECONDS (11.7-14.9)
[2018-07-31 06:10] LABS: Bedside Glucose 122 mg/dL (70-110)
[2018-07-31 06:14] LABS: POSITIVE COUNT NO; POSITIVE DIFFERENTIAL NO; POSITIVE MORPHOLOGY NO
[2018-07-31 06:26] LABS: Anion Gap 12 (5-15); BUN 48 mg/dL (7-18); BUN/Creat Ratio 8.2 RATIO (10-20); Calcium,Total 7.9 mg/dL (8.5-10.1); Chloride 98 mmol/L (98-107); Creatinine, Serum 5.85 mg/dL (0.55-1.02); EST Glomerular Filtration Rate 8 mL/min (>60); Est Glom Filt Rate - Afr Amer 9 mL/min (>60); Estimated Creatinine Clearance 10.02 ml/min; Glucose 116 mg/dL (74-106); Potassium 4.2 mmol/L (3.5-5.1); Sodium Level 136 mmol/L (136-145)
[2018-07-31] MEDS: Nystatin Powder 15gm Bottle 1 APPLIC TOPICAL ×3 (09:21→21:02)
[2018-07-31] MEDS: Glucerna Shake 120 ML LIQUID PO (09:21)
[2018-07-31] MEDS: oxyCODONE 5 MG Tablet PO ×2 (09:21→18:35)
[2018-07-31] MEDS: Aspirin 81 MG TAB.CHEW PO (09:21)
[2018-07-31] MEDS: Metoprolol Tartrate 25 MG Tablet PO ×2 (10:32→21:02)
--- NOTE | 2018-07-31 10:43 | PCM.PN.REN ---
Patient Problems: Active and Suspected Problems Shock, unspecified (Acute) GI bleed (Acute) Acute liver failure (Acute) Coagulopathy (Acute) UTI (urinary tract infection) (Acute) Hepatic encephalopathy (Acute) Acute renal insufficiency (Acute) Acute renal failure (Acute) Subjective: no new complaints transferred to floors - Physical Exam General: Alert, Oriented x3, Cooperative HEENT: Atraumatic, PERRLA, EOMI, Normocephalic Neck: Supple, No JVD, Negative Carotid Bruits Lungs: Clear to auscultation, Normal air movement Cardiovascular: Regular rate, No murmurs Abdomen: Bowel Sounds Present, Soft, Non Tender Extremities: No edema, Capillary Refill Less than 3 Seconds Skin: No rashes, No breakdown Musculoskeletal: No Tenderness to Palpation of Joints or Extremities Neurological: Cranial nerves II-XII grossly intact Psych/Mental Status: Normal Affect, Appropriate Vital Signs Temp Pulse Resp BP Pulse Ox 98.3 F 86 16 152/75 H 93 07/31/18 09:15 07/31/18 10:32 07/31/18 09:15 07/31/18 09:15 07/31/18 09:15 Oxygen Flow Rate (L/min) 1 Oxygen Delivery Method Nasal Cannula Weight: 106 kg Body Mass Index (BMI) 33.5 Finger Stick Blood Glucose 199 Intake and Output for Last 24 Hours 07/29/18 07/30/18 07/31/18 23:59 23:59 23:59 Intake Total 500 / 500 960 / 960 680 / 680 Output Total 2160 / 2160 45 / 45 50 / 50 Balance -1660 / -1660 915 / 915 630 / 630 Microbiology Past 72 Hours 07/27/18 15:55 Urine Culture - Final Urine Catheter - Catheter Culture exhibits no growth. 07/27/18 12:00 Blood Culture - Preliminary Blood Culture (Wb) - Other No growth in 48 hours. 07/27/18 10:30 Blood Culture - Preliminary Blood Culture (Wb) - Other No growth in 48 hours. Laboratory Tests Past 24 Hrs 07/31/18 07/31/18 07/31/18 05:28 05:28 05:28 WBC 5.9 RBC 3.82 L Hgb 10.6 L Hct 33.6 L MCV 88.0 MCH 27.7 MCHC 31.5 L RDW 14.7 H RDW Differential 46.1 H Plt Count 129 L MPV 10.3 Immature Gran % (Auto) 0.300 Neut % (Auto) 71.4 H Lymph % (Auto) 12.7 L [place] % (Auto) 13.2 H Eos % (Auto) 2.2 Baso % (Auto) 0.2 Absolute Neuts (auto) 4.2 Absolute Lymphs (auto) 0.75 L Total Counted Not Reportable PT 16.2 H INR 1.3 Sodium 136 Potassium 4.2 Chloride 98 Carbon Dioxide 26.0 Anion Gap 12 BUN 48 H Creatinine 5.85 H Estim Creat Clear Calc 10.02 Est GFR (MDRD) Af Amer 9 L Est GFR (MDRD) Non-Af 8 L BUN/Creatinine Ratio 8.2 L Glucose 116 H Calcium 7.9 L POC Glucose 07/31/18 07/30/18 07/30/18 06:03 22:19 15:42 POC Glucose 122 H 147 H 158 H 07/30/18 11:08 POC Glucose 200 H Medical Necessity - Tobacco Use Smoking Status: Current every day smoker Tobacco Use: Cigarettes Assessment/Plan All Active Problems Frequent falls (Acute) Shock, unspecified (Acute) GI bleed (Acute) Acute liver failure (Acute) Coagulopathy (Acute) UTI (urinary tract infection) (Acute) Hepatic encephalopathy (Acute) Acute renal insufficiency (Acute) Acute renal failure (Acute) Lightheadedness (Acute) Unsteady gait (Acute) Headache (Acute) Chest pain (Acute) Weakness of both arms (Resolved) Numbness and tingling of right face (Resolved) Difficulty speaking (Resolved) NSTEMI (non-ST elevated myocardial infarction) (Resolved) Jaw pain (Resolved) GEORGE CKD stage 3 Baseline creatinine is around 1.3 to 1.4. admitted with severe hypotension and multi organ failure. Initially hepatic injury was suspected to be related to portal V thrombosis. however CT was negative last contrast was tuesday patient remains anuric last HD tuesday HD today. called dialysis staff. arranged for later today so far work up showed UA with some RBC (this was obtained when she was anuric from [place]) serologies pending GEORGE is likely ATN in setting of multi organ failure from acute ETOH hepatitis. Remains anuric. will likely need dialysis for sometime when medically cleared otherwise will have the dialysis line changed to tunneled line
[2018-07-31 11:21] LABS: Bedside Glucose 148 mg/dL (70-110)
--- NOTE | 2018-07-31 11:27 | CASEMGMT ---
Per nephrology note, pt will need dialysis at discharge. Referral faxed to [facility] at this time. Per therapy note, pt is going to need SNF at discharge as well. Roseann KEENAN aware, voices understanding. Ankit PLUNKETT CM
[2018-07-31 11:55] LABS: HEPATITIS B SURFACE AG Negative (Negative)
--- NOTE | 2018-07-31 12:19 | CASEMGMT ---
Addendum entered by Brigette Walter 07/31/18 14:13: SW gave patient a list of facilities that are in network with her insurance. Brigette BAKER Original Note: SW reviewed chart and patient is not doing well with therapy. SW spoke with patient and she seems to think she can return home and her significant other will help her. SW told her that it is taking at least 2 people to help her here at [facility]. SW told her she is also going to need dialysis. SW told her to think about it and SW will check back with her. Brigette BAKER
--- NOTE | 2018-07-31 13:26 | PN.CARD_ITS ---
Subjectve: The patient is awake and alert. She denies ongoing chest discomfort or difficulty breathing. She has had no other issues with acute shortness of stephanie ath or dyspnea. She remains on hemodialysis. Objective: Vital Signs Temp Pulse Resp BP Pulse Ox 98.3 F 84 16 152/75 H 93 07/31/18 09:15 07/31/18 11:01 07/31/18 09:15 07/31/18 09:15 07/31/18 09:15 Oxygen Flow Rate (L/min) 1 Oxygen Delivery Method Nasal Cannula Weight: 233 lb 11.04 oz Body Mass Index (BMI) 33.5 Finger Stick Blood Glucose 199 Intake and Output for Last 24 Hours 07/29/18 07/30/18 07/31/18 23:59 23:59 23:59 Intake Total 500 / 500 960 / 960 1173 / 1173 Output Total 2160 / 2160 45 / 45 80 / 80 Balance -1660 / -1660 915 / 915 1093 / 1093 General: Awake, Alert, Oriented x 3, Cooperative, No Acute Distress HEENT: Atraumatic, Normocephalic, PERRL, EOMI, Sclera Non Icteric Oral: Moist Mucosa Lungs: Clear to auscultation Cardiovascular: Regular Rhythm, Normal S1, Normal S2 Abdomen: Bowel Sounds Present, Soft, Non Tender Extremities: No edema Psych/Mental Status: Appropriate 07/31/18 05:28: WBC 5.9, RBC 3.82 L, Hgb 10.6 L, Hct 33.6 L, MCV 88.0, MCH 27.7, MCHC 31.5 L, RDW 14.7 H, RDW Differential 46.1 H, Plt Count 129 L, MPV 10.3, Immature Gran % (Auto) 0.300, Neut % (Auto) 71.4 H, Lymph % (Auto) 12.7 L, [place] % (Auto) 13.2 H, Eos % (Auto) 2.2, Baso % (Auto) 0.2, Absolute Neuts (auto) 4.2, Total Counted Not Reportable 07/31/18 05:28: PT 16.2 H, INR 1.3 07/31/18 05:28: Sodium 136, Potassium 4.2, Chloride 98, Carbon Dioxide 26.0, Anion Gap 12, BUN 48 H, Creatinine 5.85 H, Est GFR (MDRD) Af Amer 9 L, Est GFR (MDRD) Non-Af 8 L, BUN/Creatinine Ratio 8.2 L, Glucose 116 H, Calcium 7.9 L Rhythm: Sinus rhythm Medical Necessity - Tobacco Use Smoking Status: Current every day smoker Tobacco Use: Cigarettes Assessment/Plan 1. Non-ST segment elevation [place] At the present time the patient has findings compatible with a non-ST segment elevation [place]. It is unclear whether the patient has been diagnosed in the past with underlying CAD and received PCI versus having a non-CAD related cardiovascular diagnosis. It is unclear at this time whether this finding represents true type I acute coronary syndrome versus a type II supply demand mismatch related event which may be secondary to her multiple organ failure events, etc. The patient has been placed on aspirin 81 mg a day. Thus far she appears to be doing well. If she continues to do well on this then she can be placed on additional antiplatelet therapy such as Plavix 75 mg a day unless this needs to be on hold for other invasive procedures. She may need to be considered for reevaluation in the cardiac catheterization laboratory. However there would be concern of proceeding in that manner at this time based upon her underlying hepatic failure and renal failure, etc. If she were needed to pursue with such an event, especially urgent or emergently, these issues would have to be taken into consideration based upon the increased risk in such a procedure including the concern of IV contrast related nephropathy and progressive/possibly permanent renal insufficiency/failure. Such a procedure, based upon her risks, may need to be performed at a tertiary care center. 2. Cardiomyopathy Based upon her recent transthoracic echocardiogram her overall LV systolic function appears to be mildly diminished. She will continue medical therapy as able. She will continue with dialysis to assist with volume control. 3. Hypertension Her medications can be adjusted as deemed appropriate. However consideration will have to be given to use medications hopefully can avoid interaction with her hepatic issues/renal issues. 4. GI bleed She has had a history of underlying GI bleed. She has been evaluated for such. She continues with the need for additional evaluation when she is considered stable for such. 5. Hepatic failure He has marked elevation of her hepatic transaminase levels. They are improving. This may be multifactorial in etiology. She is being evaluated by internal medicine and the critical care medicine staff. She may need further gastrointestinal evaluation by GI/hepatology. This cannot occur here she may need to be transferred to a tertiary care center for such. 6. Coagulopathy Her INR is decreasing. 7. Renal insufficiency She continues with hemodialysis. Overall, from a cardiovascular standpoint, she will continue conservative medical management at this time. Her medicines will be advanced as tolerated. There is hesitancy in proceeding with an invasive procedure with IV contrast secondary to concerns of her underlying acute renal insufficiency with the hopes this may be temporary. It appears she may require dialysis for a period of time (unknown duration at this time) with nephrology follow-up. Thus it appears that she will need additional dialysis catheter placement that can be used as an outpatient. Comment: The patient's case was discussed and reviewed with the patient. This note was generated using a voice recognition system and there may be incorrect words, spelling or punctuation that were not noted when reviewing the office note prior to saving.
--- NOTE | 2018-07-31 13:58 | PN_ITS ---
Patient Problems: Active and Suspected Problems Shock, unspecified (Acute) GI bleed (Acute) Acute liver failure (Acute) Coagulopathy (Acute) UTI (urinary tract infection) (Acute) Hepatic encephalopathy (Acute) Acute renal insufficiency (Acute) Acute renal failure (Acute) Subjective: Patient seen and examined. She still feels tired this morning. She denies any fever chills, palpitations or dizziness, chest pain, abdominal pain, diarrhea vomiting. She was on 1 L of oxygen at time of review. Review of systems otherwise negative. Vitals/I&O's: Vital Signs Temp Pulse Resp BP Pulse Ox 98.3 F 84 16 152/75 H 93 07/31/18 09:15 07/31/18 11:01 07/31/18 09:15 07/31/18 09:15 07/31/18 09:15 Oxygen Flow Rate (L/min) 1 Oxygen Delivery Method Nasal Cannula Weight: 233 lb 11.04 oz Body Mass Index (BMI) 33.5 Finger Stick Blood Glucose 199 Intake and Output for Last 24 Hours 07/29/18 07/30/18 07/31/18 23:59 23:59 23:59 Intake Total 500 / 500 960 / 960 1173 / 1173 Output Total 2160 / 2160 45 / 45 80 / 80 Balance -1660 / -1660 915 / 915 1093 / 1093 General: Alert, Oriented x3, Cooperative, Lethargic HEENT: Atraumatic, PERRLA, EOMI, Normocephalic Oral: Dry Mucosa Neck: Supple, No JVD, Negative Carotid Bruits Lungs: - - few coarse crackles in right lower lung raed. no wheezes or rho nchi. on 1L of oxygen Cardiovascular: Regular rate, Regular Rhythm, Normal S1, Normal S2, No murmurs Abdomen: Bowel Sounds Present, Soft, Non Tender, Non-Distended, No Hepato- splenomegaly Extremities: No clubbing, No cyanosis, No edema, Capillary Refill Less than 3 Seconds Skin: No rashes, No breakdown Musculoskeletal: No Tenderness to Palpation of Joints or Extremities Lymphatic: No Cervical, Supraclavicular, or Inguinal Adenopathy Neurological: Cranial nerves II-XII grossly intact, Neuro grossly intact, Motor Exam 5/5 strength throughout Psych/Mental Status: Normal Affect, Appropriate, Alert and oriented to time, place, person, mood and affect Microbiology Past 72 Hours 07/27/18 15:55 Urine Catheter - Catheter Urine Culture - Final Culture exhibits no growth. 07/27/18 12:00 Blood Culture (Wb) - Other Blood Culture - Preliminary No growth in 48 hours. 07/27/18 10:30 Blood Culture (Wb) - Other Blood Culture - Preliminary No growth in 48 hours. Laboratory Results 07/28/18 14:00: Hep Bs Antigen Negative 07/30/18 15:42: POC Glucose 158 H 07/30/18 22:19: POC Glucose 147 H 07/31/18 05:28: WBC 5.9, RBC 3.82 L, Hgb 10.6 L, Hct 33.6 L, MCV 88.0, MCH 27.7, MCHC 31.5 L, RDW 14.7 H, RDW Differential 46.1 H, Plt Count 129 L, MPV 10.3, Immature Gran % (Auto) 0.300, Neut % (Auto) 71.4 H, Lymph % (Auto) 12.7 L, [place] % (Auto) 13.2 H, Eos % (Auto) 2.2, Baso % (Auto) 0.2, Absolute Neuts (auto) 4.2, Absolute Lymphs (auto) 0.75 L, Total Counted Not Reportable 07/31/18 05:28: PT 16.2 H, INR 1.3 07/31/18 05:28: Sodium 136, Potassium 4.2, Chloride 98, Carbon Dioxide 26.0, Anion Gap 12, BUN 48 H, Creatinine 5.85 H, Estim Creat Clear Calc 10.02, Est GFR (MDRD) Af Amer 9 L, Est GFR (MDRD) Non-Af 8 L, BUN/Creatinine Ratio 8.2 L, Glucose 116 H, Calcium 7.9 L 07/31/18 06:03: POC Glucose 122 H 07/31/18 11:16: POC Glucose 148 H Diagnostic Data Brain CT 07/27/18 09:54 IMPRESSION: Chronic involutional changes of the brain. Electronically Signed: Doug Brown, at 11:41 EDT , Service support , Abdomen Ultrasound 07/27/18 14:45 IMPRESSION: Enlarged fatty liver. Mild pericholecystic fluid. Electronically Signed: Josse Montenegro, DO at 23:53 EDT Tel [phone], Service support , Abdomen CT 07/28/18 09:54 IMPRESSION: Small right pleural effusion with underlying infiltration and/or atelectasis. The portal vein as well as the hepatic veins are patent. Electronically Signed: Doug Brown, at 13:42 EDT , Service support , Chest X-Ray 07/28/18 10:44 IMPRESSION: The tip of the right internal jugular dialysis catheter is in the proximal portion of the superior vena cava. Electronically Signed: Doug Brown, at 11:45 EDT , Service support , Current Medications Aspirin (Aspirin, Baby) 81 mg PO DAILY@0800 [facility] Last Admin: 07/31/18 09:21 Dose: 81 mg Heparin Sodium (Porcine) () 2,500 units IV UD PRN PRN Reason: HEPARIN FLUSH Hydralazine HCl (Apresoline Iv) 10 mg IV Q4H PRN PRN PRN Reason: SBP>200 MMHG Hydralazine HCl (Apresoline) 50 mg PO TID [facility] Last Admin: 07/31/18 03:12 Dose: Not Given Sodium Chloride () 250 mls @ 15 mls/hr IV .[id number] PRN PRN Reason: SALINE FLUSH Last Admin: 07/27/18 21:44 Dose: 15 mls/hr Pantoprazole Sodium 40 mg/ (Sodium Chloride) 110 mls @ 330 mls/hr IV Q24 [facility] Last Admin: 07/31/18 09:21 Dose: 330 mls/hr Insulin Human Lispro (Humalog Kwikpen (Bkc)) 0 unit SC ACHS [facility]; Protocol Last Admin: 07/31/18 11:38 Dose: Not Given Metoprolol Tartrate (Lopressor (Beta Denis)) 25 mg PO BID [facility] Last Admin: 07/31/18 10:32 Dose: 25 mg Nitroglycerin (Nitrostat) 0.4 mg SUBLINGUAL Q5M PRN PRN Reason: CARDIAC/CHEST PAIN Nystatin (Mycostatin Powder) 1 applic TOPICAL 4X/DAY [facility] Last Admin: 07/31/18 09:21 Dose: 1 applicatio Ondansetron HCl (Zofran) 4 mg IV Q8H PRN PRN PRN Reason: NAUSEA Oxycodone HCl (Oxyir) 5 - 10 mg PO Q6H PRN PRN PRN Reason: SEVERE PAIN (6-10/10) Last Admin: 07/31/18 09:21 Dose: 5 mg Sodium Chloride () 5 - 15 ml IV UD PRN PRN Reason: SALINE FLUSH Last Admin: 07/31/18 05:09 Dose: 10 ml Sodium Chloride () 10 - 40 ml IV UD PRN PRN Reason: MULTILUMEN/HICMAN CATH FLUSH Last Admin: 07/31/18 05:08 Dose: 40 ml Sodium Chloride () 10 ml IV UD PRN PRN Reason: Dialysis Catheter Flush Triamcinolone Acetonide (Triamcinolone Acetonide) 1 applic TOPICAL BID PRN PRN Reason: RASH/TOPICAL IRRITATION Medical Necessity - Tobacco Use Smoking Status: Current every day smoker Tobacco Use: Cigarettes Assessment/Plan All Active Problems Frequent falls (Acute) Shock, unspecified (Acute) GI bleed (Acute) Acute liver failure (Acute) Coagulopathy (Acute) UTI (urinary tract infection) (Acute) Hepatic encephalopathy (Acute) Acute renal insufficiency (Acute) Acute renal failure (Acute) Lightheadedness (Acute) Unsteady gait (Acute) Headache (Acute) Chest pain (Acute) Weakness of both arms (Resolved) Numbness and tingling of right face (Resolved) Difficulty speaking (Resolved) NSTEMI (non-ST elevated myocardial infarction) (Resolved) Jaw pain (Resolved) 1. Acute liver injury likely medication induced * Subsequently had coagulopathy from acute liver injury. AST trended up to as high as 10,000 and ALT 1000 4500 but these have now trended down. She received N-acetylcysteine with resultant improvement in liver enzyme levels * Was thought to possibly due to medications that she was taken which included oxycodone, Zovirax, tizanidine, Klonopin, amitriptyline and Crestor which can all cause liver injury. * Right upper quadrant ultrasound showed enlarged fatty liver. * liver profile today is pending. * 2. GEORGE on CKD 3 * Creatinine is up to 5.85 today. Nephrology on board. Had dialysis 2 days ago. Will monitor. * 3. Hyperkalemia: Resolved. Potassium is 4.2 today. 4. Chronic lower GI bleed: Stable. Hemoglobin is remained stable at around 10. 7.6 today. 5. Hypotension: Resolved. 6. Non-STEMI: * troponin was initially 0.504 and trended up to 6.1 and down to 3.52. Cardiology on board. * Echo done 07/28/18 showed EF of 45% with moderate global hypokinesis. RVSP was around 71 mmHg and there was evidence of diastolic dysfunction. * Cardiology on board. Patient not deemed to be stable enough cardiac cath now * On aspirin 7. Hypertension: controlled. On metoprolol and hydralazine. lisinopril held o/a of kidney injury 8. Depression and anxiety:stable 9. GERD: on PO PPI 10. Hyperlipidemia/obesity:statins on hold o/a of liver injury 11. Nicotine dependence: on nicotine patch. Counselled to quit DVT prophylaxis: SCDs. No anticoagulation on account of coagulopathy. Code Visit Inpatient E&M: 52448 [facility] L3
--- NOTE | 2018-07-31 15:07 | PCM.PROGNOTE ---
Patient Problems: Active and Suspected Problems Shock, unspecified (Acute) GI bleed (Acute) Acute liver failure (Acute) Coagulopathy (Acute) UTI (urinary tract infection) (Acute) Hepatic encephalopathy (Acute) Acute renal insufficiency (Acute) Acute renal failure (Acute) Subjective: Patient did okay overnight. Patient was extremely tearful on my evaluation. Patient denied any worsening in her overall condition, but was very frustrated that she may need dialysis moving forward. Patient is still on minimal nasal cannula oxygen. Patient denies any productive cough at this time. Patient was being prepped for hemodialysis. - Physical Exam General: Alert, Oriented x3, Cooperative, - - Tearful. Obese. No conversational dyspnea. HEENT: Atraumatic, PERRLA, EOMI, Normocephalic, - - Lateral injection without icterus. Glasses in place. Oral: Moist Mucosa, No Gingival or Mucosal Lesions/ Ulcerations Neck: Supple, No Nodes, Trachea Midline, - - Right IJ hemodialysis catheter is clean, dry and intact Lungs: No rhonchi, No wheeze, No rales, Diminished, - - Symmetric expansion. No dullness to percussion. Cardiovascular: Regular rate, Regular Rhythm, Normal S1, Normal S2, No murmurs, No rub noted, No Gallop Abdomen: Bowel Sounds Present, Soft, Non Tender, Non-Distended, Obese Extremities: No clubbing, No cyanosis, Edema Skin: - - Punctate ulcerations noted throughout the skin. No associated exudate or erythema noted Musculoskeletal: No Tenderness to Palpation of Joints or Extremities Lymphatic: No Cervical, Supraclavicular, or Inguinal Adenopathy Neurological: Cranial nerves II-XII grossly intact, Neuro grossly intact, Motor Exam 5/5 strength throughout Psych/Mental Status: Anxious, Restless Vital Signs Temp Pulse Resp BP Pulse Ox 36.8 C 79 16 152/75 H 93 07/31/18 09:15 07/31/18 15:00 07/31/18 09:15 07/31/18 09:15 07/31/18 09:15 Oxygen Flow Rate (L/min) 1 Oxygen Delivery Method Nasal Cannula Weight: 106 kg Body Mass Index (BMI) 33.5 Finger Stick Blood Glucose 199 Intake and Output for Last 24 Hours 07/29/18 07/30/18 07/31/18 23:59 23:59 23:59 Intake Total 500 / 500 960 / 960 1173 / 1173 Output Total 2160 / 2160 45 / 45 80 / 80 Balance -1660 / -1660 915 / 915 1093 / 1093 Microbiology Past 72 Hours 07/27/18 15:55 Urine Culture - Final Urine Catheter - Catheter Culture exhibits no growth. 07/27/18 12:00 Blood Culture - Preliminary Blood Culture (Wb) - Other No growth in 48 hours. 07/27/18 10:30 Blood Culture - Preliminary Blood Culture (Wb) - Other No growth in 48 hours. Laboratory Tests Past 24 Hrs 07/28/18 07/31/18 07/31/18 14:00 05:28 05:28 WBC 5.9 RBC 3.82 L Hgb 10.6 L Hct 33.6 L MCV 88.0 MCH 27.7 MCHC 31.5 L RDW 14.7 H RDW Differential 46.1 H Plt Count 129 L MPV 10.3 Immature Gran % (Auto) 0.300 Neut % (Auto) 71.4 H Lymph % (Auto) 12.7 L [place] % (Auto) 13.2 H Eos % (Auto) 2.2 Baso % (Auto) 0.2 Absolute Neuts (auto) 4.2 Absolute Lymphs (auto) 0.75 L Total Counted Not Reportable PT 16.2 H INR 1.3 Sodium Potassium Chloride Carbon Dioxide Anion Gap BUN Creatinine Estim Creat Clear Calc Est GFR (MDRD) Af Amer Est GFR (MDRD) Non-Af BUN/Creatinine Ratio Glucose Calcium Total Bilirubin Direct Bilirubin AST ALT Alkaline Phosphatase Total Protein Albumin Hep Bs Antigen Negative 07/31/18 07/31/18 05:28 05:28 WBC RBC Hgb Hct MCV MCH MCHC RDW RDW Differential Plt Count MPV Immature Gran % (Auto) Neut % (Auto) Lymph % (Auto) [place] % (Auto) Eos % (Auto) Baso % (Auto) Absolute Neuts (auto) Absolute Lymphs (auto) Total Counted PT INR Sodium 136 Potassium 4.2 Chloride 98 Carbon Dioxide 26.0 Anion Gap 12 BUN 48 H Creatinine 5.85 H Estim Creat Clear Calc 10.02 Est GFR (MDRD) Af Amer 9 L Est GFR (MDRD) Non-Af 8 L BUN/Creatinine Ratio 8.2 L Glucose 116 H Calcium 7.9 L Total Bilirubin Pending Direct Bilirubin Pending AST Pending ALT Pending Alkaline Phosphatase Pending Total Protein Pending Albumin Pending Hep Bs Antigen POC Glucose 07/31/18 07/31/18 07/30/18 11:16 06:03 22:19 POC Glucose 148 H 122 H 147 H 07/30/18 15:42 POC Glucose 158 H Medical Necessity - Tobacco Use Smoking Status: Current every day smoker Tobacco Use: Cigarettes Assessment/Plan All Active Problems Frequent falls (Acute) Shock, unspecified (Acute) GI bleed (Acute) Acute liver failure (Acute) Coagulopathy (Acute) UTI (urinary tract infection) (Acute) Hepatic encephalopathy (Acute) Acute renal insufficiency (Acute) Acute renal failure (Acute) Lightheadedness (Acute) Unsteady gait (Acute) Headache (Acute) Chest pain (Acute) Weakness of both arms (Resolved) Numbness and tingling of right face (Resolved) Difficulty speaking (Resolved) NSTEMI (non-ST elevated myocardial infarction) (Resolved) Jaw pain (Resolved) RECOMMENDATIONS: 1. Continue hemodialysis support per nephrology recommendations. 2. Continue daily PPI therapy. 3. Continue to monitor transaminase levels and INR. 4. Encourage incentive spirometer use and mobilize patient as tolerated. 5. Wean supplemental oxygen to maintain saturations at or above 90%. IMPRESSIONS: 1. Acute liver injury/coagulopathy Considerations include toxic effect from medications (drug induced liver injury) and alcohol, with subsequent impaired synthetic function leading to coagulopathy. Additionally, in March 2016, the patient was also noted to have an elevated factor VIII level, which has been shown to be a risk factor for venous thrombosis. A subsequent CT abdomen revealed no evidence of hepatic venous thrombosis. At this time, the patient's transaminase levels are improving. Repeat LFTs are currently pending. Patient appears to be stabilizing from a hepatic standpoint. No bleeding has been reported. 2. Acute on chronic kidney disease/hyperkalemia Nephrology following to assist with management. Potential concern for hepatorenal syndrome. Continue hemodialysis support as indicated. 3. Rectal bleeding The patient reports rectal bleeding over the last 2 weeks. She was initially referred to undergo endoscopic evaluation on an outpatient basis. At the current time, the patient is not actively bleeding. We will continue to monitor. Surgery has evaluated the patient in the past. 4. Encephalopathy Improved. Most likely metabolic in nature and related to the patient's underlying impaired hepatic function. 5. Troponin elevation/history of systolic heart failure Cardiology is following to assist with medical management. 6. Chronic alcohol and tobacco dependency Monitor for signs of alcohol withdrawal. Nicotine replacement therapy can be considered while the patient is admitted to the hospital. 7. Depression/chronic pain syndrome/hypertension/GERD/hyperlipidemia/obesity Complicates care, management, recovery and prognosis. Continue to hold all potential hepatotoxic medications. Physical therapy to work with the patient. Code Visit Inpatient E&M: 33200 Subs Hosp L2
[2018-07-31 15:33] LABS: AST(SGOT) 257 U/L (15-37); Alanine Aminotransfer ALT/SGPT 1295 U/L (13-56); Albumin, Serum 2.6 g/dL (3.2-5.0); Alkaline Phosphatase 188 U/L (45-117); Globulin 3.2 g/dL (2.2-4.2); Protein, Total 5.8 g/dL (6.4-8.2)
--- NOTE | 2018-07-31 15:39 | PCM.PN.SRG ---
Patient Problems: Active and Suspected Problems Shock, unspecified (Acute) GI bleed (Acute) Acute liver failure (Acute) Coagulopathy (Acute) UTI (urinary tract infection) (Acute) Hepatic encephalopathy (Acute) Acute renal insufficiency (Acute) Acute renal failure (Acute) Subjective: no further bleeding. - Physical Exam Lungs: Clear to auscultation Cardiovascular: Regular rate, Regular Rhythm Abdomen: Bowel Sounds Present, Soft, Non Tender Vital Signs Temp Pulse Resp BP Pulse Ox 99.2 F H 80 16 163/67 H 96 07/31/18 15:15 07/31/18 15:15 07/31/18 15:15 07/31/18 15:15 07/31/18 15:15 Oxygen Flow Rate (L/min) 1 Oxygen Delivery Method Nasal Cannula Weight: 106 kg Body Mass Index (BMI) 33.5 Finger Stick Blood Glucose 199 Intake and Output for Last 24 Hours 07/29/18 07/30/18 07/31/18 23:59 23:59 23:59 Intake Total 500 / 500 960 / 960 1173 / 1173 Output Total 2160 / 2160 45 / 45 80 / 80 Balance -1660 / -1660 915 / 915 1093 / 1093 Microbiology Past 72 Hours 07/27/18 15:55 Urine Culture - Final Urine Catheter - Catheter Culture exhibits no growth. 07/27/18 12:00 Blood Culture - Preliminary Blood Culture (Wb) - Other No growth in 48 hours. 07/27/18 10:30 Blood Culture - Preliminary Blood Culture (Wb) - Other No growth in 48 hours. Laboratory Tests Past 24 Hrs 07/28/18 07/31/18 07/31/18 14:00 05:28 05:28 WBC 5.9 RBC 3.82 L Hgb 10.6 L Hct 33.6 L MCV 88.0 MCH 27.7 MCHC 31.5 L RDW 14.7 H RDW Differential 46.1 H Plt Count 129 L MPV 10.3 Immature Gran % (Auto) 0.300 Neut % (Auto) 71.4 H Lymph % (Auto) 12.7 L [place] % (Auto) 13.2 H Eos % (Auto) 2.2 Baso % (Auto) 0.2 Absolute Neuts (auto) 4.2 Absolute Lymphs (auto) 0.75 L Total Counted Not Reportable PT 16.2 H INR 1.3 Sodium Potassium Chloride Carbon Dioxide Anion Gap BUN Creatinine Estim Creat Clear Calc Est GFR (MDRD) Af Amer Est GFR (MDRD) Non-Af BUN/Creatinine Ratio Glucose Calcium Total Bilirubin Direct Bilirubin AST ALT Alkaline Phosphatase Total Protein Albumin Globulin Hep Bs Antigen Negative 07/31/18 07/31/18 05:28 05:28 WBC RBC Hgb Hct MCV MCH MCHC RDW RDW Differential Plt Count MPV Immature Gran % (Auto) Neut % (Auto) Lymph % (Auto) [place] % (Auto) Eos % (Auto) Baso % (Auto) Absolute Neuts (auto) Absolute Lymphs (auto) Total Counted PT INR Sodium 136 Potassium 4.2 Chloride 98 Carbon Dioxide 26.0 Anion Gap 12 BUN 48 H Creatinine 5.85 H Estim Creat Clear Calc 10.02 Est GFR (MDRD) Af Amer 9 L Est GFR (MDRD) Non-Af 8 L BUN/Creatinine Ratio 8.2 L Glucose 116 H Calcium 7.9 L Total Bilirubin 1.20 H Direct Bilirubin 0.60 H AST 257 H ALT 1295 H Alkaline Phosphatase 188 H Total Protein 5.8 L Albumin 2.6 L Globulin 3.2 Hep Bs Antigen POC Glucose 07/31/18 07/31/18 07/30/18 11:16 06:03 22:19 POC Glucose 148 H 122 H 147 H 07/30/18 15:42 POC Glucose 158 H Medical Necessity - Tobacco Use Smoking Status: Current every day smoker Tobacco Use: Cigarettes Assessment/Plan All Active Problems Frequent falls (Acute) Shock, unspecified (Acute) GI bleed (Acute) Acute liver failure (Acute) Coagulopathy (Acute) UTI (urinary tract infection) (Acute) Hepatic encephalopathy (Acute) Acute renal insufficiency (Acute) Acute renal failure (Acute) Lightheadedness (Acute) Unsteady gait (Acute) Headache (Acute) Chest pain (Acute) Weakness of both arms (Resolved) Numbness and tingling of right face (Resolved) Difficulty speaking (Resolved) NSTEMI (non-ST elevated myocardial infarction) (Resolved) Jaw pain (Resolved) acute liver injury-likely secondary to alcohol abuse and steatohepatitis, lower GI bleeding, Electrolyte abnormalities, dehydration, hypotension The patient is currently on the floor. she has stable She has a central catheter placed. Vitals are stable her liver transaminases now normalizing with relatively normal bilirubin and alkaline phosphatase. CT scan of the abdomen with contrast demonstrated no portal vein thrombosis or hepatic vein thrombosis. Etiology is likely a combination of alcoholic hepatitis and steatohepatitis. liver enzymes are normalizing Patient remains anuric. hepatorenal syndrome? Ongoing dialysis. elevated troponins, decreased cardiac output from previous echocardiograms, understand conference reservationist plan is medical management. Hemoglobin stable-no further GI bleeding noted-we will hold endoscopy for now unless the patient actively bleeding. When cardiology and medicine services are comfortable that she is appropriate for bowel prep and sedation, will plan for upper and lower endoscopy
--- NOTE | 2018-07-31 16:00 | CASEMGMT ---
This KIARRA LOVELACE received call from [facility] from [facility] stating that she has all needed information at this time and that we are awaiting financial approval at this time. [phone] Ankit PLUNKETT CM
[2018-07-31 16:41] LABS: Bedside Glucose 104 mg/dL (70-110)
[2018-07-31] MEDS: Heparin 10,000 UNITS/10 ML Vial 2600 UNITS IV (18:30)
--- NOTE | 2018-07-31 18:50 | DIALYSIS ---
hemodialysis x 3.5 hrs completed. Access via right neck temporary HD cath. 3K bath. UF 2500ml. See HD flowsheet on chart. Right neck HD cath dressing changed.
[2018-07-31] MEDS: hydrALAZINE 50 MG Tablet PO (21:01)
[2018-07-31] MEDS: Senna Tablet 1 TABLET PO (21:02)
[2018-07-31 21:21] LABS: Bedside Glucose 144 mg/dL (70-110)
--- NOTE | 2018-07-31 23:40 | NURSING ---
Patient pulled of Right IJ Temp Dialysis catheter dressing. Dressing change completed. See charting.
[2018-08-01] VITALS (14 sets, daily range): BP systolic 129–149; BP diastolic 40–66; PULSE 79–87; RESP 16–18; TEMP 36.4–37.1; O2SAT 93–97
[2018-08-01] MEDS: oxyCODONE 5 MG Tablet PO ×5 (02:01→21:58)
[2018-08-01] MEDS: 0.9% NaCl Peripheral Flush Adult/Peds IV ×3 (04:28→04:30)
[2018-08-01 04:43] LABS: Absolute Lymphocyte Count 0.64 X10^3/ul (0.83-4.51); Absolute Neutrophil Count 4.5 X10^3/uL (2.0-7.7); Basophil# 0.01 X10^3/uL; Basophil% 0.2 % (0-1); Eosinophil# 0.12 X10^3/uL; Hematocrit 32.7 % (37-47); Hemoglobin 10.4 g/dl (12.0-15.0); Lymphocyte # 0.64 X10^3/ul (4.0); Lymphocyte % 10.5 % (19-41); Mean Corp Hgb Conc 31.8 g/gl (32-36); Mean Corpuscular Volume 88.1 fL (81-99); Monocyte# 0.86 X10^3/uL; Monocyte% 14.1 % (0-10); Neutrophil # 4.45 X10^3/uL (2.7-7.7); Platelet Count 111 K/mm3 (150-450); Red Blood Count 3.71 M/mm3 (4.2-5.4); White Blood Count 6.1 K/mm3 (4.4-11.0)
[2018-08-01 04:44] LABS: POSITIVE COUNT NO; POSITIVE DIFFERENTIAL NO; POSITIVE MORPHOLOGY NO
[2018-08-01 04:51] LABS: Albumin, Serum 2.7 g/dL (3.2-5.0); BUN 31 mg/dL (7-18); BUN/Creat Ratio 6.9 RATIO (10-20); Calcium,Total 8.1 mg/dL (8.5-10.1); Chloride 96 mmol/L (98-107); Creatinine, Serum 4.47 mg/dL (0.55-1.02); EST Glomerular Filtration Rate 11 mL/min (>60); Est Glom Filt Rate - Afr Amer 13 mL/min (>60); Estimated Creatinine Clearance 13.11 ml/min; Glucose 125 mg/dL (74-106); Phosphorus 4.9 mg/dL (2.5-4.9); Potassium 4.2 mmol/L (3.5-5.1); Sodium Level 135 mmol/L (136-145)
[2018-08-01] MEDS: hydrALAZINE 50 MG Tablet PO ×3 (05:45→21:49)
[2018-08-01 06:07] LABS: Hepatitis B Core Ab Total Negative (Negative)
[2018-08-01 06:51] LABS: Bedside Glucose 116 mg/dL (70-110)
[2018-08-01] MEDS: Senna Tablet 1 TABLET PO (08:18)
[2018-08-01] MEDS: Nystatin Powder 15gm Bottle 1 APPLIC TOPICAL ×3 (09:03→21:50)
[2018-08-01] MEDS: Metoprolol Tartrate 25 MG Tablet PO ×2 (09:04→21:49)
[2018-08-01] MEDS: Aspirin 81 MG TAB.CHEW PO (09:04)
--- NOTE | 2018-08-01 10:24 | PCM.PROGNOTE ---
Patient Problems: Active and Suspected Problems Shock, unspecified (Acute) GI bleed (Acute) Acute liver failure (Acute) Coagulopathy (Acute) UTI (urinary tract infection) (Acute) Hepatic encephalopathy (Acute) Acute renal insufficiency (Acute) Acute renal failure (Acute) Subjective: Patient did well overnight. Patient did have hemodialysis yesterday and tolerated well. Patient has been weaned to room air and is doing better subjectively. Patient still very tearful and asking to go home. - Physical Exam General: Alert, Oriented x3, Cooperative, No apparent distress, Well developed, Well nourished, - - Obese. Speaking in full sentences. HEENT: Atraumatic, PERRLA, EOMI, Normocephalic, - - Right scleral injection Oral: Moist Mucosa, No Gingival or Mucosal Lesions/ Ulcerations Neck: Supple, No Nodes, Trachea Midline, - - Right IJ hemodialysis catheter Lungs: No rhonchi, No wheeze, No rales, Diminished, - - Symmetric expansion. No dullness to percussion. Cardiovascular: Regular rate, Regular Rhythm, Normal S1, Normal S2, No murmurs, No rub noted, No Gallop Abdomen: Bowel Sounds Present, Soft, Non Tender, Non-Distended, Obese Extremities: No cyanosis, Capillary Refill Less than 3 Seconds, Edema Skin: - - No significant change compared to previous Musculoskeletal: No Tenderness to Palpation of Joints or Extremities Lymphatic: No Cervical, Supraclavicular, or Inguinal Adenopathy Neurological: Cranial nerves II-XII grossly intact, Neuro grossly intact, Motor Exam 5/5 strength throughout Psych/Mental Status: Anxious, Impulsive Vital Signs Temp Pulse Resp BP Pulse Ox 36.4 C L 86 16 129/65 H 97 08/01/18 09:00 08/01/18 09:04 08/01/18 09:00 08/01/18 09:00 08/01/18 09:00 Oxygen Flow Rate (L/min) 1 Oxygen Delivery Method Room Air Weight: 104 kg Body Mass Index (BMI) 33.5 Finger Stick Blood Glucose 199 Intake and Output for Last 24 Hours 07/30/18 07/31/18 08/01/18 23:59 23:59 23:59 Intake Total 960 / 960 1533 / 1533 120 / 120 Output Total 45 / 45 2600 / 2600 Balance 915 / 915 -1067 / -1067 120 / 120 Microbiology Past 72 Hours 07/27/18 15:55 Urine Culture - Final Urine Catheter - Catheter Culture exhibits no growth. 07/27/18 12:00 Blood Culture - Preliminary Blood Culture (Wb) - Other No growth in 48 hours. 07/27/18 10:30 Blood Culture - Preliminary Blood Culture (Wb) - Other No growth in 48 hours. Laboratory Tests Past 24 Hrs 07/28/18 07/31/18 08/01/18 14:00 05:28 04:25 WBC RBC Hgb Hct MCV MCH MCHC RDW RDW Differential Plt Count MPV Immature Gran % (Auto) Neut % (Auto) Lymph % (Auto) [place] % (Auto) Eos % (Auto) Baso % (Auto) Absolute Neuts (auto) Absolute Lymphs (auto) Total Counted Sodium 135 L Potassium 4.2 Chloride 96 L Carbon Dioxide 30.0 BUN 31 H Creatinine 4.47 H Estim Creat Clear Calc 13.11 Est GFR (MDRD) Af Amer 13 L Est GFR (MDRD) Non-Af 11 L BUN/Creatinine Ratio 6.9 L Glucose 125 H Calcium 8.1 L Phosphorus 4.9 Total Bilirubin 1.20 H Direct Bilirubin 0.60 H AST 257 H ALT 1295 H Alkaline Phosphatase 188 H Total Protein 5.8 L Albumin 2.6 L 2.7 L Globulin 3.2 Hep Bs Antigen Negative 08/01/18 04:25 WBC 6.1 RBC 3.71 L Hgb 10.4 L Hct 32.7 L MCV 88.1 MCH 28.0 MCHC 31.8 L RDW 15.0 H RDW Differential 48.0 H Plt Count 111 L MPV 10.0 Immature Gran % (Auto) 0.200 Neut % (Auto) 73.0 H Lymph % (Auto) 10.5 L [place] % (Auto) 14.1 H Eos % (Auto) 2.0 Baso % (Auto) 0.2 Absolute Neuts (auto) 4.5 Absolute Lymphs (auto) 0.64 L Total Counted Not Reportable Sodium Potassium Chloride Carbon Dioxide BUN Creatinine Estim Creat Clear Calc Est GFR (MDRD) Af Amer Est GFR (MDRD) Non-Af BUN/Creatinine Ratio Glucose Calcium Phosphorus Total Bilirubin Direct Bilirubin AST ALT Alkaline Phosphatase Total Protein Albumin Globulin Hep Bs Antigen POC Glucose 08/01/18 07/31/18 07/31/18 06:44 20:55 16:32 POC Glucose 116 H 144 H 104 07/31/18 11:16 POC Glucose 148 H Medical Necessity - Tobacco Use Smoking Status: Current every day smoker Tobacco Use: Cigarettes Assessment/Plan All Active Problems Frequent falls (Acute) Shock, unspecified (Acute) GI bleed (Acute) Acute liver failure (Acute) Coagulopathy (Acute) UTI (urinary tract infection) (Acute) Hepatic encephalopathy (Acute) Acute renal insufficiency (Acute) Acute renal failure (Acute) Lightheadedness (Acute) Unsteady gait (Acute) Headache (Acute) Chest pain (Acute) Weakness of both arms (Resolved) Numbness and tingling of right face (Resolved) Difficulty speaking (Resolved) NSTEMI (non-ST elevated myocardial infarction) (Resolved) Jaw pain (Resolved) RECOMMENDATIONS: 1. Continue hemodialysis support per nephrology recommendations. 2. Continue daily PPI therapy. 3. Continue to monitor transaminase levels and INR. 4. Encourage incentive spirometer use and mobilize patient as tolerated. 5. Since should have a walking oximetry prior to discharge 6. Hemodynamically stable on room air. Will sign off from a critical care perspective. IMPRESSIONS: 1. Acute liver injury/coagulopathy Considerations include toxic effect from medications (drug induced liver injury) and alcohol, with subsequent impaired synthetic function leading to coagulopathy. Additionally, in March 2016, the patient was also noted to have an elevated factor VIII level, which has been shown to be a risk factor for venous thrombosis. A subsequent CT abdomen revealed no evidence of hepatic venous thrombosis. At this time, the patient's transaminase levels are improving. Patient appears to be stabilizing from a hepatic standpoint. No bleeding has been reported. Patient currently hemodynamically stable on room air. Will sign off from a critical care perspective. 2. Acute on chronic kidney disease/hyperkalemia Nephrology following to assist with management. Potential concern for hepatorenal syndrome. Continue hemodialysis support as indicated. 3. Rectal bleeding The patient reports rectal bleeding over the last 2 weeks. She was initially referred to undergo endoscopic evaluation on an outpatient basis. At the current time, the patient is not actively bleeding. We will continue to monitor. Surgery has evaluated the patient in the past. 4. Encephalopathy Improved. Most likely metabolic in nature and related to the patient's underlying impaired hepatic function. 5. Troponin elevation/history of systolic heart failure Cardiology is following to assist with medical management. 6. Chronic alcohol and tobacco dependency Monitor for signs of alcohol withdrawal. Nicotine replacement therapy can be considered while the patient is admitted to the hospital. 7. Depression/chronic pain syndrome/hypertension/GERD/hyperlipidemia/obesity Complicates care, management, recovery and prognosis. Continue to hold all potential hepatotoxic medications. Physical therapy to work with the patient. Code Visit Inpatient E&M: 49823 Subs Hosp L2
--- NOTE | 2018-08-01 11:00 | PCM.PN.CARD ---
Subjectve: The patient is without ongoing symptoms of classic angina pectoris at this time. She has had no obvious evidence of acute CHF or pulmonary edema. There has been no near syncope or syncope. She continues with evaluation for her multiple medical issues including her concern of gastrointestinal bleeding as well as her ongoing renal insufficiency. Objective: Vital Signs Temp Pulse Resp BP Pulse Ox 97.6 F L 86 16 129/65 H 97 08/01/18 09:00 08/01/18 09:04 08/01/18 09:00 08/01/18 09:00 08/01/18 09:00 Oxygen Flow Rate (L/min) 1 Oxygen Delivery Method Room Air Weight: 229 lb 4.492 oz Body Mass Index (BMI) 33.5 Finger Stick Blood Glucose 199 Intake and Output for Last 24 Hours 07/30/18 07/31/18 08/01/18 23:59 23:59 23:59 Intake Total 960 / 960 1533 / 1533 120 / 120 Output Total 45 / 45 2600 / 2600 Balance 915 / 915 -1067 / -1067 120 / 120 General: Awake, Alert, Oriented x 3, Cooperative, No Acute Distress HEENT: Atraumatic, Normocephalic, PERRL, EOMI, Sclera Non Icteric Oral: Moist Mucosa Lungs: Clear to auscultation Cardiovascular: Regular Rhythm, Normal S1, Normal S2 Abdomen: Bowel Sounds Present, Soft, Non Tender Extremities: No edema Psych/Mental Status: Depressed 07/31/18 05:28: Total Bilirubin 1.20 H, Direct Bilirubin 0.60 H 08/01/18 04:25: Sodium 135 L, Potassium 4.2, Chloride 96 L, Carbon Dioxide 30.0, BUN 31 H, Creatinine 4.47 H, Est GFR (MDRD) Af Amer 13 L, Est GFR (MDRD) Non-Af 11 L, BUN/Creatinine Ratio 6.9 L, Glucose 125 H, Calcium 8.1 L, Phosphorus 4.9 08/01/18 04:25: WBC 6.1, RBC 3.71 L, Hgb 10.4 L, Hct 32.7 L, MCV 88.1, MCH 28.0, MCHC 31.8 L, RDW 15.0 H, RDW Differential 48.0 H, Plt Count 111 L, MPV 10.0, Immature Gran % (Auto) 0.200, Neut % (Auto) 73.0 H, Lymph % (Auto) 10.5 L, [place] % (Auto) 14.1 H, Eos % (Auto) 2.0, Baso % (Auto) 0.2, Absolute Neuts (auto) 4.5, Total Counted Not Reportable Rhythm: Sinus rhythm Medical Necessity - Tobacco Use Smoking Status: Current every day smoker Tobacco Use: Cigarettes Assessment/Plan 1. Non-ST segment elevation MD At the present time the patient has findings compatible with a non-ST segment elevation MD. It is unclear whether the patient has been diagnosed in the past with underlying CAD and received PCI versus having a non-CAD related cardiovascular diagnosis. It is unclear at this time whether this finding represents true type I acute coronary syndrome versus a type II supply demand mismatch related event which may be secondary to her multiple organ failure events, etc. The patient has been placed on aspirin 81 mg a day. Thus far she appears to be doing well. If she continues to do well on this then she can be placed on additional antiplatelet therapy such as Plavix 75 mg a day unless this needs to be on hold for other invasive procedures. She may need to be considered for reevaluation in the cardiac catheterization laboratory. However there would be concern of proceeding in that manner at this time based upon her underlying hepatic failure and renal failure, etc. If she were needed to pursue with such an event, especially urgent or emergently, these issues would have to be taken into consideration based upon the increased risk in such a procedure including the concern of IV contrast related nephropathy and progressive/possibly permanent renal insufficiency/failure. Such a procedure, based upon her risks, may need to be performed at a tertiary care center. 2. Cardiomyopathy Based upon her recent transthoracic echocardiogram her overall LV systolic function appears to be mildly diminished. She will continue medical therapy as able. She will continue with dialysis to assist with volume control. 3. Hypertension Her medications can be adjusted as deemed appropriate. However consideration will have to be given to use medications hopefully can avoid interaction with her hepatic issues/renal issues. 4. GI bleed She has had a history of underlying GI bleed. She is pending upcoming evaluation by endoscopy under the direction of Dr. Garcia. Depending upon the findings, if she requires no further evaluation and/or care from an invasive/surgical standpoint, then hopefully she can initiate additional antiplatelet therapy with clopidogrel/Plavix unless otherwise contraindicated or not tolerated, upon her recent events and in preparation for future cardiovascular evaluation such as diagnostic cardiac catheterization when she is able to undergo such a procedure. 5. Hepatic failure He has marked elevation of her hepatic transaminase levels. They are improving. This may be multifactorial in etiology. She is being evaluated by internal medicine and the critical care medicine staff. 6. Coagulopathy Her INR is decreasing. 7. Renal insufficiency She continues with hemodialysis. Overall, from a cardiovascular standpoint, she will continue conservative medical management at this time. Her medicines will be advanced as tolerated. There is hesitancy in proceeding with an invasive procedure with IV contrast secondary to concerns of her underlying acute renal insufficiency with the hopes this may be temporary. It appears she may require dialysis for a period of time (unknown duration at this time) with nephrology follow-up. Thus it appears that she will need additional dialysis catheter placement that can be used as an outpatient. Comment: The patient's case was discussed and reviewed with the patient. This note was generated using a voice recognition system and there may be incorrect words, spelling or punctuation that were not noted when reviewing the office note prior to saving.
[2018-08-01 11:16] LABS: Bedside Glucose 135 mg/dL (70-110)
--- NOTE | 2018-08-01 11:43 | CASEMGMT ---
Call from Josephine at [facility] and she is requesting pt med/allergy list at this time. She also states that pt will have M,W,F at 1530 but she is unsure if insurance has approved yet at this time. Medication/allergy list faxed to [facility] at this time. Roseann KEENAN aware of chair time, voices understanding. Ankit PLUNKETT CM
--- NOTE | 2018-08-01 12:55 | PCM.PN.REN ---
Patient Problems: Active and Suspected Problems Shock, unspecified (Acute) GI bleed (Acute) Acute liver failure (Acute) Coagulopathy (Acute) UTI (urinary tract infection) (Acute) Hepatic encephalopathy (Acute) Acute renal insufficiency (Acute) Acute renal failure (Acute) Subjective: no new complaints - Physical Exam General: Alert, Oriented x3, Cooperative HEENT: Atraumatic, PERRLA, EOMI, Normocephalic Neck: Supple, No JVD, Negative Carotid Bruits Lungs: Clear to auscultation, Normal air movement Cardiovascular: Regular rate, No murmurs Abdomen: Bowel Sounds Present, Soft, Non Tender Extremities: No edema, Capillary Refill Less than 3 Seconds Skin: No rashes, No breakdown Musculoskeletal: No Tenderness to Palpation of Joints or Extremities Neurological: Cranial nerves II-XII grossly intact Psych/Mental Status: Normal Affect, Appropriate Vital Signs Temp Pulse Resp BP Pulse Ox 97.6 F L 82 16 129/65 H 97 08/01/18 09:00 08/01/18 10:58 08/01/18 09:00 08/01/18 09:00 08/01/18 09:00 Oxygen Flow Rate (L/min) 1 Oxygen Delivery Method Room Air Weight: 104 kg Body Mass Index (BMI) 33.5 Finger Stick Blood Glucose 199 Intake and Output for Last 24 Hours 07/30/18 07/31/18 08/01/18 23:59 23:59 23:59 Intake Total 960 / 960 1533 / 1533 788 / 788 Output Total 45 / 45 2600 / 2600 60 / 60 Balance 915 / 915 -1067 / -1067 728 / 728 Microbiology Past 72 Hours 07/27/18 15:55 Urine Culture - Final Urine Catheter - Catheter Culture exhibits no growth. 07/27/18 12:00 Blood Culture - Preliminary Blood Culture (Wb) - Other No growth in 48 hours. 07/27/18 10:30 Blood Culture - Preliminary Blood Culture (Wb) - Other No growth in 48 hours. Laboratory Tests Past 24 Hrs 07/28/18 07/31/18 08/01/18 14:00 05:28 04:25 WBC RBC Hgb Hct MCV MCH MCHC RDW RDW Differential Plt Count MPV Immature Gran % (Auto) Neut % (Auto) Lymph % (Auto) [place] % (Auto) Eos % (Auto) Baso % (Auto) Absolute Neuts (auto) Absolute Lymphs (auto) Total Counted Sodium 135 L Potassium 4.2 Chloride 96 L Carbon Dioxide 30.0 BUN 31 H Creatinine 4.47 H Estim Creat Clear Calc 13.11 Est GFR (MDRD) Af Amer 13 L Est GFR (MDRD) Non-Af 11 L BUN/Creatinine Ratio 6.9 L Glucose 125 H Calcium 8.1 L Phosphorus 4.9 Total Bilirubin 1.20 H Direct Bilirubin 0.60 H AST 257 H ALT 1295 H Alkaline Phosphatase 188 H Total Protein 5.8 L Albumin 2.6 L 2.7 L Globulin 3.2 Hep B Core Total Ab Negative 08/01/18 04:25 WBC 6.1 RBC 3.71 L Hgb 10.4 L Hct 32.7 L MCV 88.1 MCH 28.0 MCHC 31.8 L RDW 15.0 H RDW Differential 48.0 H Plt Count 111 L MPV 10.0 Immature Gran % (Auto) 0.200 Neut % (Auto) 73.0 H Lymph % (Auto) 10.5 L [place] % (Auto) 14.1 H Eos % (Auto) 2.0 Baso % (Auto) 0.2 Absolute Neuts (auto) 4.5 Absolute Lymphs (auto) 0.64 L Total Counted Not Reportable Sodium Potassium Chloride Carbon Dioxide BUN Creatinine Estim Creat Clear Calc Est GFR (MDRD) Af Amer Est GFR (MDRD) Non-Af BUN/Creatinine Ratio Glucose Calcium Phosphorus Total Bilirubin Direct Bilirubin AST ALT Alkaline Phosphatase Total Protein Albumin Globulin Hep B Core Total Ab POC Glucose 08/01/18 08/01/18 07/31/18 11:06 06:44 20:55 POC Glucose 135 H 116 H 144 H 07/31/18 16:32 POC Glucose 104 Medical Necessity - Tobacco Use Smoking Status: Current every day smoker Tobacco Use: Cigarettes Assessment/Plan All Active Problems Frequent falls (Acute) Shock, unspecified (Acute) GI bleed (Acute) Acute liver failure (Acute) Coagulopathy (Acute) UTI (urinary tract infection) (Acute) Hepatic encephalopathy (Acute) Acute renal insufficiency (Acute) Acute renal failure (Acute) Lightheadedness (Acute) Unsteady gait (Acute) Headache (Acute) Chest pain (Acute) Weakness of both arms (Resolved) Numbness and tingling of right face (Resolved) Difficulty speaking (Resolved) NSTEMI (non-ST elevated myocardial infarction) (Resolved) Jaw pain (Resolved) GEORGE CKD stage 3 Baseline creatinine is around 1.3 to 1.4. admitted with severe hypotension and multi organ failure. Initially hepatic injury was suspected to be related to portal V thrombosis. however CT was negative last contrast was tuesday patient remains anuric HD yesterday, continue MWf schedule so far work up showed UA with some RBC (this was obtained when she was anuric from [facility]) serologies pending GEORGE is likely ATN in setting of multi organ failure from acute ETOH hepatitis. d/w Dr Song line can be switched to tunneled line by surgery (already seeing her) froylan [facility] send paperwork for possible dialysis unit placement no plans for kidney biopsy for now. GEORGE is likely ATN
--- NOTE | 2018-08-01 12:58 | PCM.PN.HOSP ---
Patient Problems: Active and Suspected Problems Shock, unspecified (Acute) GI bleed (Acute) Acute liver failure (Acute) Coagulopathy (Acute) UTI (urinary tract infection) (Acute) Hepatic encephalopathy (Acute) Acute renal insufficiency (Acute) Acute renal failure (Acute) Subjective: Patient seen and examined. She was much more alert today and had no complaints. She denied any fever chills, palpitations or dizziness, chest pain, abdominal pain, diarrhea. Review of systems otherwise negative. She had dialysis yesterday. Labs and vitals reviewed. Vitals/I&O's: Vital Signs Temp Pulse Resp BP Pulse Ox 97.6 F L 82 16 129/65 H 97 08/01/18 09:00 08/01/18 10:58 08/01/18 09:00 08/01/18 09:00 08/01/18 09:00 Oxygen Flow Rate (L/min) 1 Oxygen Delivery Method Room Air Weight: 229 lb 4.492 oz Body Mass Index (BMI) 33.5 Finger Stick Blood Glucose 199 Intake and Output for Last 24 Hours 07/30/18 07/31/18 08/01/18 23:59 23:59 23:59 Intake Total 960 / 960 1533 / 1533 788 / 788 Output Total 45 / 45 2600 / 2600 60 / 60 Balance 915 / 915 -1067 / -1067 728 / 728 General: Alert, Oriented x3, Cooperative, HEENT: Atraumatic, PERRLA, EOMI, Normocephalic Oral: Dry Mucosa Neck: Supple, No JVD, Negative Carotid Bruits Lungs: - - few coarse crackles in right lower lung read. no wheezes or rhonchi. on room air Cardiovascular: Regular rate, Regular Rhythm, Normal S1, Normal S2, No murmurs Abdomen: Bowel Sounds Present, Soft, Non Tender, Non-Distended, No Hepato-splenomegaly Extremities: No clubbing, No cyanosis, No edema, Capillary Refill Less than 3 Seconds Skin: No rashes, No breakdown Musculoskeletal: No Tenderness to Palpation of Joints or Extremities Lymphatic: No Cervical, Supraclavicular, or Inguinal Adenopathy Neurological: Cranial nerves II-XII grossly intact, Neuro grossly intact, Motor Exam 5/5 strength throughout Psych/Mental Status: Normal Affect, Appropriate, Alert and oriented to time, place, person, mood and affect Microbiology Past 72 Hours 07/27/18 15:55 Urine Catheter - Catheter Urine Culture - Final Culture exhibits no growth. 07/27/18 12:00 Blood Culture (Wb) - Other Blood Culture - Preliminary No growth in 48 hours. 07/27/18 10:30 Blood Culture (Wb) - Other Blood Culture - Preliminary No growth in 48 hours. Laboratory Results 07/28/18 14:00: Hep B Core Total Ab Negative 07/31/18 05:28: Total Bilirubin 1.20 H, Direct Bilirubin 0.60 H, AST 257 H, ALT 1295 H, Alkaline Phosphatase 188 H, Total Protein 5.8 L, Albumin 2.6 L, Globulin 3.2 07/31/18 16:32: POC Glucose 104 07/31/18 20:55: POC Glucose 144 H 08/01/18 04:25: Sodium 135 L, Potassium 4.2, Chloride 96 L, Carbon Dioxide 30.0, BUN 31 H, Creatinine 4.47 H, Estim Creat Clear Calc 13.11, Est GFR (MDRD) Af Amer 13 L, Est GFR (MDRD) Non-Af 11 L, BUN/Creatinine Ratio 6.9 L, Glucose 125 H, Calcium 8.1 L, Phosphorus 4.9, Albumin 2.7 L 08/01/18 04:25: WBC 6.1, RBC 3.71 L, Hgb 10.4 L, Hct 32.7 L, MCV 88.1, MCH 28.0, MCHC 31.8 L, RDW 15.0 H, RDW Differential 48.0 H, Plt Count 111 L, MPV 10.0, Immature Gran % (Auto) 0.200, Neut % (Auto) 73.0 H, Lymph % (Auto) 10.5 L, [place] % (Auto) 14.1 H, Eos % (Auto) 2.0, Baso % (Auto) 0.2, Absolute Neuts (auto) 4.5, Absolute Lymphs (auto) 0.64 L, Total Counted Not Reportable 08/01/18 06:44: POC Glucose 116 H 08/01/18 11:06: POC Glucose 135 H Diagnostic Data Brain CT 07/27/18 09:54 IMPRESSION: Chronic involutional changes of the brain. Electronically Signed: Doug Brown, at 11:41 EDT , Service support , Abdomen Ultrasound 07/27/18 14:45 IMPRESSION: Enlarged fatty liver. Mild pericholecystic fluid. Electronically Signed: Josse Montenegro DO at 23:53 EDT Tel [phone], Service support , Abdomen CT 07/28/18 09:54 IMPRESSION: Small right pleural effusion with underlying infiltration and/or atelectasis. The portal vein as well as the hepatic veins are patent. Electronically Signed: Doug Brown, at 13:42 EDT , Service support , Chest X-Ray 07/28/18 10:44 IMPRESSION: The tip of the right internal jugular dialysis catheter is in the proximal portion of the superior vena cava. Electronically Signed: Doug Brown, at 11:45 EDT , Service support , Current Medications Aspirin (Aspirin, Baby) 81 mg PO DAILY@0800 [facility] Last Admin: 08/01/18 09:04 Dose: 81 mg Heparin Sodium (Porcine) () 2,500 units IV UD PRN PRN Reason: HEPARIN FLUSH Hydralazine HCl (Apresoline Iv) 10 mg IV Q4H PRN PRN PRN Reason: SBP>200 MMHG Hydralazine HCl (Apresoline) 50 mg PO TID [facility] Last Admin: 08/01/18 05:45 Dose: 50 mg Sodium Chloride () 250 mls @ 15 mls/hr IV .[id number] PRN PRN Reason: SALINE FLUSH Last Admin: 07/27/18 21:44 Dose: 15 mls/hr Pantoprazole Sodium 40 mg/ (Sodium Chloride) 110 mls @ 330 mls/hr IV Q24 [facility] Last Admin: 08/01/18 09:01 Dose: 330 mls/hr Insulin Human Lispro (Humalog Kwikpen (Bkc)) 0 unit SC ACHS [facility]; Protocol Last Admin: 08/01/18 11:19 Dose: Not Given Metoprolol Tartrate (Lopressor (Beta Denis)) 25 mg PO BID [facility] Last Admin: 08/01/18 09:04 Dose: 25 mg Nitroglycerin (Nitrostat) 0.4 mg SUBLINGUAL Q5M PRN PRN Reason: CARDIAC/CHEST PAIN Nystatin (Mycostatin Powder) 1 applic TOPICAL 4X/DAY [facility] Last Admin: 08/01/18 09:03 Dose: 1 applicatio Ondansetron HCl (Zofran) 4 mg IV Q8H PRN PRN PRN Reason: NAUSEA Oxycodone HCl (Oxyir) 5 - 10 mg PO Q6H PRN PRN PRN Reason: SEVERE PAIN (6-10/10) Last Admin: 08/01/18 08:18 Dose: 10 mg Senna (Senokot) 1 tablet PO DAILY PRN PRN PRN Reason: CONSTIPATION Last Admin: 08/01/18 08:18 Dose: 1 tablet Sodium Chloride () 5 - 15 ml IV UD PRN PRN Reason: SALINE FLUSH Last Admin: 08/01/18 04:30 Dose: 10 ml Sodium Chloride () 10 - 40 ml IV UD PRN PRN Reason: MULTILUMEN/HICMAN CATH FLUSH Last Admin: 07/31/18 05:08 Dose: 40 ml Sodium Chloride () 10 ml IV UD PRN PRN Reason: Dialysis Catheter Flush Sodium Chloride/Electrolytes (Nulytely) 4,000 ml PO X1 ONE Stop: 08/01/18 16:01 Triamcinolone Acetonide (Triamcinolone Acetonide) 1 applic TOPICAL BID PRN PRN Reason: RASH/TOPICAL IRRITATION Medical Necessity - Tobacco Use Smoking Status: Current every day smoker Tobacco Use: Cigarettes Assessment/Plan All Active Problems Frequent falls (Acute) Shock, unspecified (Acute) GI bleed (Acute) Acute liver failure (Acute) Coagulopathy (Acute) UTI (urinary tract infection) (Acute) Hepatic encephalopathy (Acute) Acute renal insufficiency (Acute) Acute renal failure (Acute) Lightheadedness (Acute) Unsteady gait (Acute) Headache (Acute) Chest pain (Acute) Weakness of both arms (Resolved) Numbness and tingling of right face (Resolved) Difficulty speaking (Resolved) NSTEMI (non-ST elevated myocardial infarction) (Resolved) Jaw pain (Resolved) 1. Acute liver injury likely medication induced Subsequently had coagulopathy from acute liver injury. AST trended up to as high as 10,000 and ALT 1000 4500 but these have now trended down. She received N-acetylcysteine with resultant improvement in liver enzyme levels Was thought to possibly due to medications that she was taken which included oxycodone, Zovirax, tizanidine, Klonopin, amitriptyline and Crestor which can all cause liver injury. Right upper quadrant ultrasound showed enlarged fatty liver. AST trended down to 257, adn ALT down to 1295. coagulopathy has resolved. INR down to 1.3 2. GEORGE on CKD 3 Creatinine is 4.47 today. nephrology on board discussed with nephrology; will need tunneled catheter for snf dialysis. 3. Hyperkalemia: Resolved. Potassium is 4.2 today. 4. Chronic lower GI bleed: Stable. for EGD and colonoscopy tomorrow. Hb today is 10.4. On IV PPI 5. Hypotension: Resolved. 6. Non-STEMI: troponin was initially 0.504 and trended up to 6.1 and down to 3.52. Cardiology on board. Echo done 07/28/18 showed EF of 45% with moderate global hypokinesis. RVSP was around 71 mmHg and there was evidence of diastolic dysfunction. Cardiology on board. Patient not deemed to be stable enough cardiac cath now On aspirin; per cardiology, depending on the findings of the EGD and colonoscopy, antiplatelet therapy can be added on as needed. 7. Hypertension: controlled. On metoprolol and hydralazine. lisinopril held o/a of kidney injury 8. Depression and anxiety:stable 9. GERD: on PO PPI 10. Hyperlipidemia/obesity:statins on hold o/a of liver injury 11. Nicotine dependence: on nicotine patch. Counselled to quit DVT prophylaxis: SCDs. No anticoagulation on account of coagulopathy. Disposition: will need SNF placement. Code Visit Inpatient E&M: [id number] [facility] L3
--- NOTE | 2018-08-01 13:08 | PN_ITS ---
Patient Problems: Active and Suspected Problems Shock, unspecified (Acute) GI bleed (Acute) Acute liver failure (Acute) Coagulopathy (Acute) UTI (urinary tract infection) (Acute) Hepatic encephalopathy (Acute) Acute renal insufficiency (Acute) Acute renal failure (Acute) Subjective: Patient seen and examined. She was much more alert today and had no complaints. She denied any fever chills, palpitations or dizziness, chest pain, abdominal pain, diarrhea. Review of systems otherwise negative. She had dialysis yesterday. Labs and vitals reviewed. Vitals/I&O's: Vital Signs Temp Pulse Resp BP Pulse Ox 97.6 F L 82 16 129/65 H 97 08/01/18 09:00 08/01/18 10:58 08/01/18 09:00 08/01/18 09:00 08/01/18 09:00 Oxygen Flow Rate (L/min) 1 Oxygen Delivery Method Room Air Weight: 229 lb 4.492 oz Body Mass Index (BMI) 33.5 Finger Stick Blood Glucose 199 Intake and Output for Last 24 Hours 07/30/18 07/31/18 08/01/18 23:59 23:59 23:59 Intake Total 960 / 960 1533 / 1533 788 / 788 Output Total 45 / 45 2600 / 2600 60 / 60 Balance 915 / 915 -1067 / -1067 728 / 728 General: Alert, Oriented x3, Cooperative, HEENT: Atraumatic, PERRLA, EOMI, Normocephalic Oral: Dry Mucosa Neck: Supple, No JVD, Negative Carotid Bruits Lungs: - - few coarse crackles in right lower lung read. no wheezes or rhonchi. on room air Cardiovascular: Regular rate, Regular Rhythm, Normal S1, Normal S2, No murmurs Abdomen: Bowel Sounds Present, Soft, Non Tender, Non-Distended, No Hepato- splenomegaly Extremities: No clubbing, No cyanosis, No edema, Capillary Refill Less than 3 Seconds Skin: No rashes, No breakdown Musculoskeletal: No Tenderness to Palpation of Joints or Extremities Lymphatic: No Cervical, Supraclavicular, or Inguinal Adenopathy Neurological: Cranial nerves II-XII grossly intact, Neuro grossly intact, Motor Exam 5/5 strength throughout Psych/Mental Status: Normal Affect, Appropriate, Alert and oriented to time, place, person, mood and affect Microbiology Past 72 Hours 07/27/18 15:55 Urine Catheter - Catheter Urine Culture - Final Culture exhibits no growth. 07/27/18 12:00 Blood Culture (Wb) - Other Blood Culture - Preliminary No growth in 48 hours. 07/27/18 10:30 Blood Culture (Wb) - Other Blood Culture - Preliminary No growth in 48 hours. Laboratory Results 07/28/18 14:00: Hep B Core Total Ab Negative 07/31/18 05:28: Total Bilirubin 1.20 H, Direct Bilirubin 0.60 H, AST 257 H, ALT 1295 H, Alkaline Phosphatase 188 H, Total Protein 5.8 L, Albumin 2.6 L, Globulin 3.2 07/31/18 16:32: POC Glucose 104 07/31/18 20:55: POC Glucose 144 H 08/01/18 04:25: Sodium 135 L, Potassium 4.2, Chloride 96 L, Carbon Dioxide 30.0, BUN 31 H, Creatinine 4.47 H, Estim Creat Clear Calc 13.11, Est GFR (MDRD) Af Amer 13 L, Est GFR (MDRD) Non-Af 11 L, BUN/Creatinine Ratio 6.9 L, Glucose 125 H , Calcium 8.1 L, Phosphorus 4.9, Albumin 2.7 L 08/01/18 04:25: WBC 6.1, RBC 3.71 L, Hgb 10.4 L, Hct 32.7 L, MCV 88.1, MCH 28.0, MCHC 31.8 L, RDW 15.0 H, RDW Differential 48.0 H, Plt Count 111 L, MPV 10.0, Immature Gran % (Auto) 0.200, Neut % (Auto) 73.0 H, Lymph % (Auto) 10.5 L, Green % (Auto) 14.1 H, Eos % (Auto) 2.0, Baso % (Auto) 0.2, Absolute Neuts (auto) 4.5, Absolute Lymphs (auto) 0.64 L, Total Counted Not Reportable 08/01/18 06:44: POC Glucose 116 H 08/01/18 11:06: POC Glucose 135 H Diagnostic Data Brain CT 07/27/18 09:54 IMPRESSION: Chronic involutional changes of the brain. Electronically Signed: Doug Brown, at 11:41 EDT , Service support , Abdomen Ultrasound 07/27/18 14:45 IMPRESSION: Enlarged fatty liver. Mild pericholecystic fluid. Electronically Signed: Josse Montenegro DO at 23:53 EDT Tel [phone], Service support , Abdomen CT 07/28/18 09:54 IMPRESSION: Small right pleural effusion with underlying infiltration and/or atelectasis. The portal vein as well as the hepatic veins are patent. Electronically Signed: Doug Brown, at 13:42 EDT , Service support , Chest X-Ray 07/28/18 10:44 IMPRESSION: The tip of the right internal jugular dialysis catheter is in the proximal portion of the superior vena cava. Electronically Signed: Doug Brown, at 11:45 EDT , Service support , Current Medications Aspirin (Aspirin, Baby) 81 mg PO DAILY@0800 [facility] Last Admin: 08/01/18 09:04 Dose: 81 mg Heparin Sodium (Porcine) () 2,500 units IV UD PRN PRN Reason: HEPARIN FLUSH Hydralazine HCl (Apresoline Iv) 10 mg IV Q4H PRN PRN PRN Reason: SBP>200 MMHG Hydralazine HCl (Apresoline) 50 mg PO TID [facility] Last Admin: 08/01/18 05:45 Dose: 50 mg Sodium Chloride () 250 mls @ 15 mls/hr IV .[id number] PRN PRN Reason: SALINE FLUSH Last Admin: 07/27/18 21:44 Dose: 15 mls/hr Pantoprazole Sodium 40 mg/ (Sodium Chloride) 110 mls @ 330 mls/hr IV Q24 [facility] Last Admin: 08/01/18 09:01 Dose: 330 mls/hr Insulin Human Lispro (Humalog Kwikpen (Bkc)) 0 unit SC ACHS [facility]; Protocol Last Admin: 08/01/18 11:19 Dose: Not Given Metoprolol Tartrate (Lopressor (Beta Denis)) 25 mg PO BID [facility] Last Admin: 08/01/18 09:04 Dose: 25 mg Nitroglycerin (Nitrostat) 0.4 mg SUBLINGUAL Q5M PRN PRN Reason: CARDIAC/CHEST PAIN Nystatin (Mycostatin Powder) 1 applic TOPICAL 4X/DAY [facility] Last Admin: 08/01/18 09:03 Dose: 1 applicatio Ondansetron HCl (Zofran) 4 mg IV Q8H PRN PRN PRN Reason: NAUSEA Oxycodone HCl (Oxyir) 5 - 10 mg PO Q6H PRN PRN PRN Reason: SEVERE PAIN (6-10/10) Last Admin: 08/01/18 08:18 Dose: 10 mg Senna (Senokot) 1 tablet PO DAILY PRN PRN PRN Reason: CONSTIPATION Last Admin: 08/01/18 08:18 Dose: 1 tablet Sodium Chloride () 5 - 15 ml IV UD PRN PRN Reason: SALINE FLUSH Last Admin: 08/01/18 04:30 Dose: 10 ml Sodium Chloride () 10 - 40 ml IV UD PRN PRN Reason: MULTILUMEN/HICMAN CATH FLUSH Last Admin: 07/31/18 05:08 Dose: 40 ml Sodium Chloride () 10 ml IV UD PRN PRN Reason: Dialysis Catheter Flush Sodium Chloride/Electrolytes (Nulytely) 4,000 ml PO X1 ONE Stop: 08/01/18 16:01 Triamcinolone Acetonide (Triamcinolone Acetonide) 1 applic TOPICAL BID PRN PRN Reason: RASH/TOPICAL IRRITATION Medical Necessity - Tobacco Use Smoking Status: Current every day smoker Tobacco Use: Cigarettes Assessment/Plan All Active Problems Frequent falls (Acute) Shock, unspecified (Acute) GI bleed (Acute) Acute liver failure (Acute) Coagulopathy (Acute) UTI (urinary tract infection) (Acute) Hepatic encephalopathy (Acute) Acute renal insufficiency (Acute) Acute renal failure (Acute) Lightheadedness (Acute) Unsteady gait (Acute) Headache (Acute) Chest pain (Acute) Weakness of both arms (Resolved) Numbness and tingling of right face (Resolved) Difficulty speaking (Resolved) NSTEMI (non-ST elevated myocardial infarction) (Resolved) Jaw pain (Resolved) 1. Acute liver injury likely medication induced * Subsequently had coagulopathy from acute liver injury. AST trended up to as high as 10,000 and ALT 1000 4500 but these have now trended down. She received N-acetylcysteine with resultant improvement in liver enzyme levels * Was thought to possibly due to medications that she was taken which included oxycodone, Zovirax, tizanidine, Klonopin, amitriptyline and Crestor which can all cause liver injury. * Right upper quadrant ultrasound showed enlarged fatty liver. * AST trended down to 257, adn ALT down to 1295. * coagulopathy has resolved. INR down to 1.3 * 2. GEORGE on CKD 3 * Creatinine is 4.47 today. nephrology on board * discussed with nephrology; will need tunneled catheter for penitentiary dialysis. * 3. Hyperkalemia: Resolved. Potassium is 4.2 today. 4. Chronic lower GI bleed: Stable. for EGD and colonoscopy tomorrow. Hb today is 10.4. On IV PPI 5. Hypotension: Resolved. 6. Non-STEMI: * troponin was initially 0.504 and trended up to 6.1 and down to 3.52. Cardiology on board. * Echo done 07/28/18 showed EF of 45% with moderate global hypokinesis. RVSP was around 71 mmHg and there was evidence of diastolic dysfunction. * Cardiology on board. Patient not deemed to be stable enough cardiac cath now * On aspirin; per cardiology, depending on the findings of the EGD and colonoscopy, antiplatelet therapy can be added on as needed. 7. Hypertension: controlled. On metoprolol and hydralazine. lisinopril held o/a of kidney injury 8. Depression and anxiety:stable 9. GERD: on PO PPI 10. Hyperlipidemia/obesity:statins on hold o/a of liver injury 11. Nicotine dependence: on nicotine patch. Counselled to quit DVT prophylaxis: SCDs. No anticoagulation on account of coagulopathy. Disposition: will need SNF placement. Code Visit Inpatient E&M: 22586 [facility] L3
--- NOTE | 2018-08-01 13:11 | CASEMGMT ---
SW spoke with patient about placement. She was open to SW making a referral to [facility] and/or [facility]. SW called [facility] and made a referral as well as faxed information. Patient is also being set up with outpatient dialysis. Brigette GASCA MSW
[2018-08-01 16:26] LABS: Bedside Glucose 169 mg/dL (70-110)
[2018-08-01] MEDS: Insulin Lispro 100 UNIT/ML INSULN.PEN SC (16:33)
[2018-08-01] MEDS: Electrolyte Solution/Peg's 4000 ML PO (16:34)
--- NOTE | 2018-08-01 18:50 | PCM.PN.SRG ---
Patient Problems: Active and Suspected Problems Shock, unspecified (Acute) GI bleed (Acute) Acute liver failure (Acute) Coagulopathy (Acute) UTI (urinary tract infection) (Acute) Hepatic encephalopathy (Acute) Acute renal insufficiency (Acute) Acute renal failure (Acute) - Physical Exam General: Alert, Oriented x3, Cooperative Lungs: Clear to auscultation, Normal air movement Cardiovascular: Regular rate, Regular Rhythm Abdomen: Bowel Sounds Present, Soft, Non Tender Vital Signs Temp Pulse Resp BP Pulse Ox 98.7 F 84 16 142/40 H 94 08/01/18 15:00 08/01/18 15:00 08/01/18 15:00 08/01/18 15:00 08/01/18 15:00 Oxygen Flow Rate (L/min) 1 Oxygen Delivery Method Room Air Weight: 104 kg Body Mass Index (BMI) 33.5 Finger Stick Blood Glucose 199 Intake and Output for Last 24 Hours 07/30/18 07/31/18 08/01/18 23:59 23:59 23:59 Intake Total 960 / 960 1533 / 1533 2788 / 2788 Output Total 45 / 45 2600 / 2600 60 / 60 Balance 915 / 915 -1067 / -1067 2728 / 2728 Microbiology Past 72 Hours 07/27/18 10:30 Blood Culture - Final Blood Culture (Wb) - Other No growth in 5 days. 07/27/18 12:00 Blood Culture - Final Blood Culture (Wb) - Other No growth in 5 days. 07/27/18 15:55 Urine Culture - Final Urine Catheter - Catheter Culture exhibits no growth. Laboratory Tests Past 24 Hrs 07/28/18 08/01/18 08/01/18 14:00 04:25 04:25 WBC 6.1 RBC 3.71 L Hgb 10.4 L Hct 32.7 L MCV 88.1 MCH 28.0 MCHC 31.8 L RDW 15.0 H RDW Differential 48.0 H Plt Count 111 L MPV 10.0 Immature Gran % (Auto) 0.200 Neut % (Auto) 73.0 H Lymph % (Auto) 10.5 L [place] % (Auto) 14.1 H Eos % (Auto) 2.0 Baso % (Auto) 0.2 Absolute Neuts (auto) 4.5 Absolute Lymphs (auto) 0.64 L Total Counted Not Reportable Sodium 135 L Potassium 4.2 Chloride 96 L Carbon Dioxide 30.0 BUN 31 H Creatinine 4.47 H Estim Creat Clear Calc 13.11 Est GFR (MDRD) Af Amer 13 L Est GFR (MDRD) Non-Af 11 L BUN/Creatinine Ratio 6.9 L Glucose 125 H Calcium 8.1 L Phosphorus 4.9 Albumin 2.7 L Hep B Core Total Ab Negative POC Glucose 08/01/18 08/01/18 08/01/18 16:21 11:06 06:44 POC Glucose 169 H 135 H 116 H 07/31/18 20:55 POC Glucose 144 H Medical Necessity - Tobacco Use Smoking Status: Current every day smoker Tobacco Use: Cigarettes Assessment/Plan All Active Problems Frequent falls (Acute) Shock, unspecified (Acute) GI bleed (Acute) Acute liver failure (Acute) Coagulopathy (Acute) UTI (urinary tract infection) (Acute) Hepatic encephalopathy (Acute) Acute renal insufficiency (Acute) Acute renal failure (Acute) Lightheadedness (Acute) Unsteady gait (Acute) Headache (Acute) Chest pain (Acute) Weakness of both arms (Resolved) Numbness and tingling of right face (Resolved) Difficulty speaking (Resolved) NSTEMI (non-ST elevated myocardial infarction) (Resolved) Jaw pain (Resolved) acute liver injury-likely secondary to alcohol abuse and steatohepatitis, lower GI bleeding, Electrolyte abnormalities, dehydration, hypotension The patient is currently on the floor. she has stable She has a central catheter placed. Vitals are stable her liver transaminases now normalizing with relatively normal bilirubin and alkaline phosphatase. CT scan of the abdomen with contrast demonstrated no portal vein thrombosis or hepatic vein thrombosis. Etiology is likely a combination of alcoholic hepatitis and steatohepatitis. liver enzymes are normalizing Patient remains anuric. hepatorenal syndrome? Ongoing dialysis. 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 Hemoglobin stable-no further GI bleeding noted- Discussed with Dr. Sun - he feels patient is currently medically stable. As anticoagulation is a consideration given her cardiac status he would be most pleased if we could perform upper and lower endoscopy prior to starting anticoagulation and feels that her cardiac risk is low. We will therefore plan for bowel prep today and plan for upper and lower endoscopy tomorrow.
--- NOTE | 2018-08-01 21:50 | NURSING ---
Evening medications given at this time. Encouraged patient to keep drinking her golytely prep but the patient said she hasn't slept in four nights and just wants to sleep. Will continue to encourage the patient to drink golytely prep.
[2018-08-01 22:55] LABS: Bedside Glucose 117 mg/dL (70-110)
[2018-08-02] VITALS (23 sets, daily range): BP systolic 103–156; BP diastolic 51–76; PULSE 74–89; RESP 16–17; TEMP 36.3–37.1; O2SAT 92–96; BMI 33.8
--- NOTE | 2018-08-02 | GASB_PTH ---
PATIENT: CONI WEBER LOC: [facility] U#:[id number] AGE/SX: 63/F ROOM: [facility] RE07/27/[address]: Dr. Brianda Song MD : [id number] BED: 1 DIS: 08/04/2018 SPEC #: [id number] RECD: 08/02/18 13:56 STATUS: XENA REQ #: [id number] AAMIR: 08/02/18 00:[address]: Gary Garcia DEPT: SURGICAL PATHOLOGY RECD BY: Dimitry Gray ENTERED: 08/02/18 13:56 SP TYPE: Gastric Bx OTHR DR: DO Dr. Crystal Joshua MD Dr. Nana Yaa Koram, MD Dr. Natthavat Tanphaichitr, MD Dr. Prakash Chand, MD Dr. Paul Moodispaw, MD Dr. Richard Guttman, MD Tissues: Gastric mucous membrane Procedures: Surgery Specimen Level IV Comments: @ Ordering doctor for SUIV edited from to @ by ANDERSON at 08/02/18 1450 @ Submitting doctor edited from to @ by ERASTOOD at 08/02/18 1453 HEADER OPERATION: Colonoscopy, EGD ([facility]) PRE-OP DIAGNOSIS: Rectal bleeding TISSUE SUBMITTED: Antral biopsy MICROSCOPIC DIAGNOSIS Antral biopsy: Mild chronic antral gastritis. CE:liz 08/03/18 MICROSCOPIC DESCRIPTION Slides are reviewed. GROSS DESCRIPTION Received in fixative is one container labeled with the patient's name and designated antral biopsy. The specimen consists of one irregular fragment of light veras soft tissue that measures 0.3 x 0.2 x 0.1 cm. The specimen is totally submitted in one cassette. / SJ:liz 08/02/18 TC:3 CPT: 89847
[2018-08-02 06:56] LABS: Albumin, Serum 2.6 g/dL (3.2-5.0); BUN 41 mg/dL (7-18); BUN/Creat Ratio 7.3 RATIO (10-20); Chloride 95 mmol/L (98-107); Creatinine, Serum 5.62 mg/dL (0.55-1.02); EST Glomerular Filtration Rate 8 mL/min (>60); Est Glom Filt Rate - Afr Amer 10 mL/min (>60); Estimated Creatinine Clearance 10.43 ml/min; Glucose 103 mg/dL (74-106); Phosphorus 5.8 mg/dL (2.5-4.9); Potassium 4.4 mmol/L (3.5-5.1); Sodium Level 130 mmol/L (136-145)
[2018-08-02] MEDS: hydrALAZINE 50 MG Tablet PO ×2 (07:03→22:28)
[2018-08-02] MEDS: 0.9% NaCl Peripheral Flush Adult/Peds IV (07:03)
[2018-08-02] MEDS: oxyCODONE 5 MG Tablet PO ×3 (07:03→20:13)
[2018-08-02 07:10] LABS: Bedside Glucose 104 mg/dL (70-110)
[2018-08-02] MEDS: Metoprolol Tartrate 25 MG Tablet PO ×2 (08:45→22:32)
--- NOTE | 2018-08-02 09:38 | PCM.PN.CARD ---
Subjectve: The patient is awake and alert. She is pending an endoscopy procedure. She is also pending continued hemodialysis today. Objective: Vital Signs Temp Pulse Resp BP Pulse Ox 98.1 F 87 16 154/57 H 96 08/02/18 08:40 08/02/18 08:45 08/02/18 08:40 08/02/18 08:45 08/02/18 08:40 Oxygen Flow Rate (L/min) 1 Oxygen Delivery Method Room Air Weight: 239 lb 13.807 oz Body Mass Index (BMI) 33.8 Finger Stick Blood Glucose 199 Intake and Output for Last 24 Hours 07/31/18 08/01/18 08/02/18 23:59 23:59 23:59 Intake Total 1533 / 1533 2788 / 2788 200 / 200 Output Total 2600 / 2600 60 / 60 Balance -1067 / -1067 2728 / 2728 200 / 200 General: Awake, Alert, Oriented x 3, Cooperative HEENT: Atraumatic, Normocephalic, PERRL Lungs: - - Scattered wheezes Cardiovascular: Regular Rhythm, Normal S1, Normal S2 Abdomen: Bowel Sounds Present, Soft, Non Tender Extremities: Mild RLE Edema, Mild LLE Edema 08/02/18 06:12: Sodium 130 L, Potassium 4.4, Chloride 95 L, Carbon Dioxide 24.0, BUN 41 H, Creatinine 5.62 H, Est GFR (MDRD) Af Amer 10 L, Est GFR (MDRD) Non-Af 8 L, BUN/Creatinine Ratio 7.3 L, Glucose 103, Calcium 8.0 L, Phosphorus 5.8 H Rhythm: Sinus rhythm Medical Necessity - Tobacco Use Smoking Status: Current every day smoker Tobacco Use: Cigarettes Assessment/Plan 1. Non-ST segment elevation VT At the present time the patient has findings compatible with a non-ST segment elevation VT. It is unclear whether the patient has been diagnosed in the past with underlying CAD and received PCI versus having a non-CAD related cardiovascular diagnosis. It is unclear at this time whether this finding represents true type I acute coronary syndrome versus a type II supply demand mismatch related event which may be secondary to her multiple organ failure events, etc. The patient has been placed on aspirin 81 mg a day. Thus far she appears to be doing well. If her endoscopy procedure is negative for obvious hemorrhagic related issues, and there is no other obvious contraindication, then perhaps she can be initiated on antiplatelet therapy with clopidogrel/Plavix. And eventually, depending upon her clinical course including her renal function, consideration would be given to further evaluation with diagnostic cardiac catheterization. If that cannot occur based upon concerns of her underlying renal function and the possibility of potential temporary dialysis becoming permanent dialysis then she may need to be assessed noninvasively such as a pharmacologic stress nuclear imaging study to evaluate her coronary physiology, etc. to help guide evaluation and care. 2. Cardiomyopathy Based upon her recent transthoracic echocardiogram her overall LV systolic function appears to be mildly diminished. She will continue medical therapy as able. She will continue with dialysis to assist with volume control. 3. Hypertension Her medications can be adjusted as deemed appropriate. However consideration will have to be given to use medications hopefully can avoid interaction with her hepatic issues/renal issues. 4. GI bleed She is pending evaluation with endoscopy procedures. 5. Hepatic failure He has marked elevation of her hepatic transaminase levels. They are improving. 6. Coagulopathy INR level has improved. 7. Renal insufficiency She continues with hemodialysis. Comment: The patient's case was discussed and reviewed with the patient previously with Dr. Garcia. This note was generated using a voice recognition system and there may be incorrect words, spelling or punctuation that were not noted when reviewing the office note prior to saving.
--- NOTE | 2018-08-02 09:54 | CASEMGMT ---
SW spoke with [facility] and they are able to accept patient. REE spoke with patient this am. She was crying. SW talked with patient and provided emotional support. She is overwhelmed with all of her health issues. Her 2 children which she did not raise are trying to reunite with her. They are trying to get to [place] from [place]. SW let patient know [facility] can accept her when she is discharged. SW told her they will work on transport to and from dialysis. REE asked patient if she would like silver recovery operator to stop by and say a prayer with her as she mentioned she is a new [employer]. She said she would like that. REE called silver recovery operator and left him a message. REE also let RN know above. REE called Theresa at [facility] and let her know patient's dialysis schedule is M,W, and F at 3:30p. Brigette GASCA MSW
[2018-08-02 11:13] LABS: ANTINUCLEAR ANTIBODIES DIRECT Negative (Negative)
--- NOTE | 2018-08-02 12:36 | OP.ENDO_ITS ---
08/02/2018 Crystal Earl [address] [place] [address] Re : Upper GI endoscopy procedure for Ivon Gonzalez Dear Dr. Earl This procedure was performed on Thursday, August 02, 2018. My impressions and recommendations are as follows: Impressions : - Normal examined jejunum. - Normal examined duodenum. - Normal stomach. Biopsied. - Normal esophagus. Recommendations : - Return patient to hospital [facility] for ongoing care. - Continue present medications. My findings are described in the full procedure note, which is enclosed. If I can be of further assistance, please feel free to contact me at Doctor phone number(s): , Work: . Sincerely, Gary Garcia MD 08/02/2018 12:36:01 PM This report has been signed electronically.
--- NOTE | 2018-08-02 12:38 | OP.ENDO_ITS ---
08/02/2018 Crystal Earl [address] [place] [address] Re : Colonoscopy procedure for Ivon Gonzalez Dear Dr. Earl This procedure was performed on Thursday, August 02, 2018. My impressions and recommendations are as follows: Impressions : - Preparation of the colon was unsatisfactory. - Stool in the rectum. - No specimens collected. Recommendations : - Return patient to hospital [facility] for ongoing care. - Use Miralax 1-4 capfuls PO BID today. - Repeat colonoscopy tomorrow. - Continue present medications. My findings are described in the full procedure note, which is enclosed. If I can be of further assistance, please feel free to contact me at Doctor phone number(s): , Work: . Sincerely, Gary Garcia MD 08/02/2018 12:38:32 PM This report has been signed electronically.
--- NOTE | 2018-08-02 13:07 | PCM.PN.HOSP ---
Patient Problems: Active and Suspected Problems Shock, unspecified (Acute) GI bleed (Acute) Acute liver failure (Acute) Coagulopathy (Acute) UTI (urinary tract infection) (Acute) Hepatic encephalopathy (Acute) Acute renal insufficiency (Acute) Acute renal failure (Acute) Subjective: Patient seen and examined. She complained of lower abdominal pain this morning. Catheter has been removed and she is barely making any urine. She denied any fever chills or palpitations, chills or dizziness, diarrhea vomiting. She is due for EGD and colonoscopic today. She also due to have a tunneled catheter put in by general surgery for dialysis. Labs and vitals reviewed. Vitals/I&O's: Vital Signs Temp Pulse Resp BP Pulse Ox 97.3 F L 81 16 121/57 H 94 08/02/18 12:53 08/02/18 12:53 08/02/18 12:53 08/02/18 12:53 08/02/18 12:53 Oxygen Flow Rate (L/min) 1 Oxygen Delivery Method Room Air Weight: 239 lb 13.807 oz Body Mass Index (BMI) 33.8 Finger Stick Blood Glucose 199 Intake and Output for Last 24 Hours 07/31/18 08/01/18 08/02/18 23:59 23:59 23:59 Intake Total 1533 / 1533 2788 / 2788 350 / 350 Output Total 2600 / 2600 60 / 60 Balance -1067 / -1067 2728 / 2728 350 / 350 General: Alert, Oriented x3, Cooperative, HEENT: Atraumatic, PERRLA, EOMI, Normocephalic Oral: Dry Mucosa Neck: Supple, No JVD, Negative Carotid Bruits Lungs: - - diminished breath sounds bibasally, no wheezes or crackles. Cardiovascular: Regular rate, Regular Rhythm, Normal S1, Normal S2, No murmurs Abdomen: Bowel Sounds Present, Soft, Non Tender, Non-Distended, No Hepato-splenomegaly Extremities: No clubbing, No cyanosis, No edema, Capillary Refill Less than 3 Seconds Skin: No rashes, No breakdown Musculoskeletal: No Tenderness to Palpation of Joints or Extremities Lymphatic: No Cervical, Supraclavicular, or Inguinal Adenopathy Neurological: Cranial nerves II-XII grossly intact, Neuro grossly intact, Motor Exam 5/5 strength throughout Psych/Mental Status: Normal Affect, Appropriate, Alert and oriented to time, place, person, mood and affect Microbiology Past 72 Hours 07/27/18 10:30 Blood Culture (Wb) - Other Blood Culture - Final No growth in 5 days. 07/27/18 12:00 Blood Culture (Wb) - Other Blood Culture - Final No growth in 5 days. 07/27/18 15:55 Urine Catheter - Catheter Urine Culture - Final Culture exhibits no growth. Laboratory Results 07/29/18 20:15: RANDY Screen Negative 08/01/18 16:21: POC Glucose 169 H 08/01/18 21:48: POC Glucose 117 H 08/02/18 06:12: Sodium 130 L, Potassium 4.4, Chloride 95 L, Carbon Dioxide 24.0, BUN 41 H, Creatinine 5.62 H, Estim Creat Clear Calc 10.43, Est GFR (MDRD) Af Amer 10 L, Est GFR (MDRD) Non-Af 8 L, BUN/Creatinine Ratio 7.3 L, Glucose 103, Calcium 8.0 L, Phosphorus 5.8 H, Albumin 2.6 L 08/02/18 06:56: POC Glucose 104 Current Medications Aspirin (Aspirin, Baby) 81 mg PO DAILY@0800 [facility] Last Admin: 08/01/18 09:04 Dose: 81 mg Heparin Sodium (Porcine) () 2,500 units IV UD PRN PRN Reason: HEPARIN FLUSH Hydralazine HCl (Apresoline Iv) 10 mg IV Q4H PRN PRN PRN Reason: SBP>200 MMHG Hydralazine HCl (Apresoline) 50 mg PO TID [facility] Last Admin: 08/02/18 07:03 Dose: 50 mg Sodium Chloride () 250 mls @ 15 mls/hr IV .[id number] PRN PRN Reason: SALINE FLUSH Last Admin: 07/27/18 21:44 Dose: 15 mls/hr Pantoprazole Sodium 40 mg/ (Sodium Chloride) 110 mls @ 330 mls/hr IV Q24 [facility] Last Admin: 08/02/18 08:45 Dose: 330 mls/hr Insulin Human Lispro (Humalog Kwikpen (Bkc)) 0 unit SC ACHS [facility]; Protocol Last Admin: 08/02/18 07:23 Dose: Not Given Metoprolol Tartrate (Lopressor (Beta Denis)) 25 mg PO BID [facility] Last Admin: 08/02/18 08:45 Dose: 25 mg Nitroglycerin (Nitrostat) 0.4 mg SUBLINGUAL Q5M PRN PRN Reason: CARDIAC/CHEST PAIN Nystatin (Mycostatin Powder) 1 applic TOPICAL 4X/DAY [facility] Last Admin: 08/01/18 21:50 Dose: 1 applicatio Ondansetron HCl (Zofran) 4 mg IV Q8H PRN PRN PRN Reason: NAUSEA Oxycodone HCl (Oxyir) 5 - 10 mg PO Q6H PRN PRN PRN Reason: SEVERE PAIN (6-10/10) Last Admin: 08/02/18 07:03 Dose: 10 mg Polyethylene Glycol (Miralax) 34 gm PO Q2H PRN PRN Reason: Constipation Senna (Senokot) 1 tablet PO DAILY PRN PRN PRN Reason: CONSTIPATION Last Admin: 08/01/18 08:18 Dose: 1 tablet Sodium Chloride () 5 - 15 ml IV UD PRN PRN Reason: SALINE FLUSH Last Admin: 08/02/18 07:03 Dose: 10 ml Sodium Chloride () 10 - 40 ml IV UD PRN PRN Reason: MULTILUMEN/HICMAN CATH FLUSH Last Admin: 07/31/18 05:08 Dose: 40 ml Sodium Chloride () 10 ml IV UD PRN PRN Reason: Dialysis Catheter Flush Triamcinolone Acetonide (Triamcinolone Acetonide) 1 applic TOPICAL BID PRN PRN Reason: RASH/TOPICAL IRRITATION Medical Necessity - Tobacco Use Smoking Status: Current every day smoker Tobacco Use: Cigarettes Assessment/Plan All Active Problems Frequent falls (Acute) Shock, unspecified (Acute) GI bleed (Acute) Acute liver failure (Acute) Coagulopathy (Acute) UTI (urinary tract infection) (Acute) Hepatic encephalopathy (Acute) Acute renal insufficiency (Acute) Acute renal failure (Acute) Lightheadedness (Acute) Unsteady gait (Acute) Headache (Acute) Chest pain (Acute) Weakness of both arms (Resolved) Numbness and tingling of right face (Resolved) Difficulty speaking (Resolved) NSTEMI (non-ST elevated myocardial infarction) (Resolved) Jaw pain (Resolved) 1. Acute liver injury likely medication induced resolved. Will monitor oxycodone, Zovirax, tizanidine, Klonopin, amitriptyline and Crestor which can all cause liver injury remain on hold Right upper quadrant ultrasound showed enlarged fatty liver. AST trended down to 257, adn ALT down to 1295. coagulopathy has resolved. 2. GEORGE on CKD 3 nephrology on board; for dialysis today will need tunneled dialysis catheter placement for retirement dialysis after discharge 3. Hyponatremia: Na is 130 today; likely due to fluid overload from kidney disease, as she is due to have dialysis today. should improve with dialysis 4. Hyperkalemia: Resolved. Potassium is 4.2 today. 4. Chronic lower GI bleed: Stable. Colonoscopy today showed unsatisfactory prep with stool in the rectum and so no specimens were collected. Patient to have MiraLAX 1-4 capfuls twice daily today and for repeat colonoscopy tomorrow. EKG showed normal jejunum and duodenum as well as stomach. Stomach was biopsied. Esophagus was also normal. on IV PPI 5. Hypotension: Resolved. 6. Non-STEMI: troponin was initially 0.504 and trended up to 6.1 and down to 3.52. Cardiology on board. Echo done 07/28/18 showed EF of 45% with moderate global hypokinesis. RVSP was around 71 mmHg and there was evidence of diastolic dysfunction. Cardiology on board. Patient not deemed to be stable enough cardiac cath now On aspirin; per cardiology, depending on the findings of the EGD and colonoscopy, antiplatelet therapy can be added on as needed. 7. Hypertension: controlled. On metoprolol and hydralazine. lisinopril held o/a of kidney injury 8. Depression and anxiety:stable 9. GERD: on PO PPI 10. Hyperlipidemia/obesity:statins on hold o/a of liver injury 11. Thrombocytopenia; platelets were 223 on admission, and has dropped gradually to 111. Likely due to coagulopathy. Not received any heparin or lovenox or any other blood thinner. WIll monitor 12. Nicotine dependence: on nicotine patch. DVT prophylaxis: SCDs. No anticoagulation on account of coagulopathy. Disposition: will need SNF placement. Code Visit Inpatient E&M: 21475 [facility] Hosp L3
--- NOTE | 2018-08-02 13:16 | PN_ITS ---
Patient Problems: Active and Suspected Problems Shock, unspecified (Acute) GI bleed (Acute) Acute liver failure (Acute) Coagulopathy (Acute) UTI (urinary tract infection) (Acute) Hepatic encephalopathy (Acute) Acute renal insufficiency (Acute) Acute renal failure (Acute) Subjective: Patient seen and examined. She complained of lower abdominal pain this morning. Catheter has been removed and she is barely making any urine. She denied any fever chills or palpitations, chills or dizziness, diarrhea vomiting. She is due for EGD and colonoscopic today. She also due to have a tunneled catheter put in by general surgery for dialysis. Labs and vitals reviewed. Vitals/I&O's: Vital Signs Temp Pulse Resp BP Pulse Ox 97.3 F L 81 16 121/57 H 94 08/02/18 12:53 08/02/18 12:53 08/02/18 12:53 08/02/18 12:53 08/02/18 12:53 Oxygen Flow Rate (L/min) 1 Oxygen Delivery Method Room Air Weight: 239 lb 13.807 oz Body Mass Index (BMI) 33.8 Finger Stick Blood Glucose 199 Intake and Output for Last 24 Hours 07/31/18 08/01/18 08/02/18 23:59 23:59 23:59 Intake Total 1533 / 1533 2788 / 2788 350 / 350 Output Total 2600 / 2600 60 / 60 Balance -1067 / -1067 2728 / 2728 350 / 350 General: Alert, Oriented x3, Cooperative, HEENT: Atraumatic, PERRLA, EOMI, Normocephalic Oral: Dry Mucosa Neck: Supple, No JVD, Negative Carotid Bruits Lungs: - - diminished breath sounds bibasally, no wheezes or crackles. Cardiovascular: Regular rate, Regular Rhythm, Normal S1, Normal S2, No murmurs Abdomen: Bowel Sounds Present, Soft, Non Tender, Non-Distended, No Hepato- splenomegaly Extremities: No clubbing, No cyanosis, No edema, Capillary Refill Less than 3 Seconds Skin: No rashes, No breakdown Musculoskeletal: No Tenderness to Palpation of Joints or Extremities Lymphatic: No Cervical, Supraclavicular, or Inguinal Adenopathy Neurological: Cranial nerves II-XII grossly intact, Neuro grossly intact, Motor Exam 5/5 strength throughout Psych/Mental Status: Normal Affect, Appropriate, Alert and oriented to time, place, person, mood and affect Microbiology Past 72 Hours 07/27/18 10:30 Blood Culture (Wb) - Other Blood Culture - Final No growth in 5 days. 07/27/18 12:00 Blood Culture (Wb) - Other Blood Culture - Final No growth in 5 days. 07/27/18 15:55 Urine Catheter - Catheter Urine Culture - Final Culture exhibits no growth. Laboratory Results 07/29/18 20:15: RANDY Screen Negative 08/01/18 16:21: POC Glucose 169 H 08/01/18 21:48: POC Glucose 117 H 08/02/18 06:12: Sodium 130 L, Potassium 4.4, Chloride 95 L, Carbon Dioxide 24.0, BUN 41 H, Creatinine 5.62 H, Estim Creat Clear Calc 10.43, Est GFR (MDRD) Af Amer 10 L, Est GFR (MDRD) Non-Af 8 L, BUN/Creatinine Ratio 7.3 L, Glucose 103, Calcium 8.0 L, Phosphorus 5.8 H, Albumin 2.6 L 08/02/18 06:56: POC Glucose 104 Current Medications Aspirin (Aspirin, Baby) 81 mg PO DAILY@0800 [facility] Last Admin: 08/01/18 09:04 Dose: 81 mg Heparin Sodium (Porcine) () 2,500 units IV UD PRN PRN Reason: HEPARIN FLUSH Hydralazine HCl (Apresoline Iv) 10 mg IV Q4H PRN PRN PRN Reason: SBP>200 MMHG Hydralazine HCl (Apresoline) 50 mg PO TID [facility] Last Admin: 08/02/18 07:03 Dose: 50 mg Sodium Chloride () 250 mls @ 15 mls/hr IV .[id number] PRN PRN Reason: SALINE FLUSH Last Admin: 07/27/18 21:44 Dose: 15 mls/hr Pantoprazole Sodium 40 mg/ (Sodium Chloride) 110 mls @ 330 mls/hr IV Q24 [facility] Last Admin: 08/02/18 08:45 Dose: 330 mls/hr Insulin Human Lispro (Humalog Kwikpen (Bkc)) 0 unit SC ACHS [facility]; Protocol Last Admin: 08/02/18 07:23 Dose: Not Given Metoprolol Tartrate (Lopressor (Beta Deins)) 25 mg PO BID [facility] Last Admin: 08/02/18 08:45 Dose: 25 mg Nitroglycerin (Nitrostat) 0.4 mg SUBLINGUAL Q5M PRN PRN Reason: CARDIAC/CHEST PAIN Nystatin (Mycostatin Powder) 1 applic TOPICAL 4X/DAY [facility] Last Admin: 08/01/18 21:50 Dose: 1 applicatio Ondansetron HCl (Zofran) 4 mg IV Q8H PRN PRN PRN Reason: NAUSEA Oxycodone HCl (Oxyir) 5 - 10 mg PO Q6H PRN PRN PRN Reason: SEVERE PAIN (6-10/10) Last Admin: 08/02/18 07:03 Dose: 10 mg Polyethylene Glycol (Miralax) 34 gm PO Q2H PRN PRN Reason: Constipation Senna (Senokot) 1 tablet PO DAILY PRN PRN PRN Reason: CONSTIPATION Last Admin: 08/01/18 08:18 Dose: 1 tablet Sodium Chloride () 5 - 15 ml IV UD PRN PRN Reason: SALINE FLUSH Last Admin: 08/02/18 07:03 Dose: 10 ml Sodium Chloride () 10 - 40 ml IV UD PRN PRN Reason: MULTILUMEN/HICMAN CATH FLUSH Last Admin: 07/31/18 05:08 Dose: 40 ml Sodium Chloride () 10 ml IV UD PRN PRN Reason: Dialysis Catheter Flush Triamcinolone Acetonide (Triamcinolone Acetonide) 1 applic TOPICAL BID PRN PRN Reason: RASH/TOPICAL IRRITATION Medical Necessity - Tobacco Use Smoking Status: Current every day smoker Tobacco Use: Cigarettes Assessment/Plan All Active Problems Frequent falls (Acute) Shock, unspecified (Acute) GI bleed (Acute) Acute liver failure (Acute) Coagulopathy (Acute) UTI (urinary tract infection) (Acute) Hepatic encephalopathy (Acute) Acute renal insufficiency (Acute) Acute renal failure (Acute) Lightheadedness (Acute) Unsteady gait (Acute) Headache (Acute) Chest pain (Acute) Weakness of both arms (Resolved) Numbness and tingling of right face (Resolved) Difficulty speaking (Resolved) NSTEMI (non-ST elevated myocardial infarction) (Resolved) Jaw pain (Resolved) 1. Acute liver injury likely medication induced * resolved. Will monitor * oxycodone, Zovirax, tizanidine, Klonopin, amitriptyline and Crestor which can all cause liver injury remain on hold * Right upper quadrant ultrasound showed enlarged fatty liver. * AST trended down to 257, adn ALT down to 1295. * coagulopathy has resolved. * 2. GEORGE on CKD 3 * nephrology on board; for dialysis today * will need tunneled dialysis catheter placement for fpc dialysis after discharge * 3. Hyponatremia: * Na is 130 today; likely due to fluid overload from kidney disease, as she is due to have dialysis today. * should improve with dialysis * 4. Hyperkalemia: Resolved. Potassium is 4.2 today. 4. Chronic lower GI bleed: * Stable. * Colonoscopy today showed unsatisfactory prep with stool in the rectum and so no specimens were collected. Patient to have MiraLAX 1-4 capfuls twice daily today and for repeat colonoscopy tomorrow. * EKG showed normal jejunum and duodenum as well as stomach. Stomach was biopsied. Esophagus was also normal. * on IV PPI * 5. Hypotension: Resolved. 6. Non-STEMI: * troponin was initially 0.504 and trended up to 6.1 and down to 3.52. Cardiology on board. * Echo done 07/28/18 showed EF of 45% with moderate global hypokinesis. RVSP was around 71 mmHg and there was evidence of diastolic dysfunction. * Cardiology on board. Patient not deemed to be stable enough cardiac cath now * On aspirin; per cardiology, depending on the findings of the EGD and colonoscopy, antiplatelet therapy can be added on as needed. 7. Hypertension: controlled. On metoprolol and hydralazine. lisinopril held o/a of kidney injury 8. Depression and anxiety:stable 9. GERD: on PO PPI 10. Hyperlipidemia/obesity:statins on hold o/a of liver injury 11. Thrombocytopenia; * platelets were 223 on admission, and has dropped gradually to 111. * Likely due to coagulopathy. Not received any heparin or lovenox or any other blood thinner. * WIll monitor 12. Nicotine dependence: on nicotine patch. DVT prophylaxis: SCDs. No anticoagulation on account of coagulopathy. Disposition: will need SNF placement. Code Visit Inpatient E&M: 33512 [facility] Hosp L3
[2018-08-02 13:40] LABS: Bedside Glucose 100 mg/dL (70-110)
--- NOTE | 2018-08-02 15:01 | CHAPLAIN ---
Type of Pastoral Visit _x__ Initial Visit ___ Follow-up Visit ___ On-call Visit ___ General Patient Visit ___ Spiritual Assessment ___ Family Conference ___ Bereavement ___ Rapid Response ___ Code Blue ___ Other (describe below) Pastoral Care Referral From _x__ Patient ___ Family _x__ Nurse ___ Physician _x__ Auto Polisher ___ Fishing Instructor ___ Other (describe below) Sacrament/Intervention _x__ Active listening ___ Anointing ___ Confucianist ___ Bereavement ___ Communion _x__ Bhavani exploration ___ _x__ Life review _x__ Prayer ___ Reconciliation ___ Sacrament of Sick _x__ Supportive presence ___ Wedding ___ Other (describe below) Pastoral Comments
[2018-08-02 16:07] LABS: Complement C3 48 mg/dL (82-167); Cytoplasmic Ab (C-ANCA) <1:20 titer (Neg:<1:20)
--- NOTE | 2018-08-02 17:39 | DIALYSIS ---
Hd x 4 hours complete. Tolerated tx well. UF of 3000ml. Used right IJ catheter. Catheter closed with heparin per fill volume. Report was given to KIARRA Guthrie. See tx sheet for more details.
[2018-08-02] MEDS: Aspirin 81 MG TAB.CHEW PO (18:24)
[2018-08-02] MEDS: Polyethylene Glycol 3350 17 GM PACKET 34 GM PO ×3 (18:24→22:32)
--- NOTE | 2018-08-02 18:28 | PCM.PN.REN ---
Patient Problems: Active and Suspected Problems Shock, unspecified (Acute) GI bleed (Acute) Acute liver failure (Acute) Coagulopathy (Acute) UTI (urinary tract infection) (Acute) Hepatic encephalopathy (Acute) Acute renal insufficiency (Acute) Acute renal failure (Acute) Subjective: Pt was seen during HD session No nausea No vomiting. No SOB - Physical Exam General: Alert, Oriented x3 HEENT: Atraumatic Oral: Moist Mucosa Neck: Supple, No JVD Lungs: Clear to auscultation, No rhonchi, No wheeze Cardiovascular: Regular rate, Regular Rhythm, Normal S1, Normal S2 Abdomen: Bowel Sounds Present, Soft, Non Tender Extremities: No clubbing, No cyanosis, Edema - +2 of LE, - Musculoskeletal: No Tenderness to Palpation of Joints or Extremities Lymphatic: No Cervical, Supraclavicular, or Inguinal Adenopathy Neurological: Cranial nerves II-XII grossly intact Vital Signs Temp Pulse Resp BP Pulse Ox 97.9 F 82 16 156/72 H 95 08/02/18 17:38 08/02/18 17:38 08/02/18 17:38 08/02/18 17:38 08/02/18 13:25 Oxygen Flow Rate (L/min) 1 Oxygen Delivery Method Room Air Weight: 108.8 kg Body Mass Index (BMI) 33.8 Finger Stick Blood Glucose 199 Intake and Output for Last 24 Hours 07/31/18 08/01/18 08/02/18 23:59 23:59 23:59 Intake Total 1533 / 1533 2788 / 2788 450 / 450 Output Total 2600 / 2600 60 / 60 3000 / 3000 Balance -1067 / -1067 2728 / 2728 -2550 / -2550 Microbiology Past 72 Hours 07/27/18 10:30 Blood Culture - Final Blood Culture (Wb) - Other No growth in 5 days. 07/27/18 12:00 Blood Culture - Final Blood Culture (Wb) - Other No growth in 5 days. Laboratory Tests Past 24 Hrs 07/29/18 08/02/18 20:15 06:12 Sodium 130 L Potassium 4.4 Chloride 95 L Carbon Dioxide 24.0 BUN 41 H Creatinine 5.62 H Estim Creat Clear Calc 10.43 Est GFR (MDRD) Af Amer 10 L Est GFR (MDRD) Non-Af 8 L BUN/Creatinine Ratio 7.3 L Glucose 103 Calcium 8.0 L Phosphorus 5.8 H Albumin 2.6 L RANDY Screen Negative POC Glucose 08/02/18 08/02/18 08/01/18 13:17 06:56 21:48 POC Glucose 100 104 117 H Medical Necessity - Tobacco Use Smoking Status: Current every day smoker Tobacco Use: Cigarettes Assessment/Plan All Active Problems Frequent falls (Acute) Shock, unspecified (Acute) GI bleed (Acute) Acute liver failure (Acute) Coagulopathy (Acute) UTI (urinary tract infection) (Acute) Hepatic encephalopathy (Acute) Acute renal insufficiency (Acute) Acute renal failure (Acute) Lightheadedness (Acute) Unsteady gait (Acute) Headache (Acute) Chest pain (Acute) Weakness of both arms (Resolved) Numbness and tingling of right face (Resolved) Difficulty speaking (Resolved) NSTEMI (non-ST elevated myocardial infarction) (Resolved) Jaw pain (Resolved) 1-Acute kidney injury from possible hepatorenal syndrome.UA showed protein 100, WBC 25-50 RBC 12 25. GN needs to be rule out. C3/C4 RANDY, ANCA are pending Currently the patient hemodialysis dependent due to metabolic support. Hemodialysis started on July 28. No recovery of kidney function. Patient remains oliguric. Seen during HD session today : BQ 350 DQ 700. Will increase UF to 3l due to elevated BP and legs edema Avoid NSAIDs/BYRON or ARB. I will continue to monitor for kidney function. Will talk to the surgeon tomorrow for TC placement 2-hyperkalemia: Resolved with hemodialysis. 3-acute liver injury. Possible from medication. LFTs trend is improving. 4-non-ST AL. Cardiology service is following. No plan for cardiac cath for now. Medical treatment as per the cardiology service Renal team will continue to follow. Please call with any question at [phone] Behzad Jordan MD
[2018-08-02 18:35] LABS: Bedside Glucose 100 mg/dL (70-110)
[2018-08-02 22:41] LABS: Bedside Glucose 104 mg/dL (70-110)
[2018-08-03] VITALS (26 sets, daily range): BP systolic 128–165; BP diastolic 45–71; PULSE 75–94; RESP 15–19; TEMP 36.4–37.2; O2SAT 94–99; BMI 35.4; BMI 33.5
[2018-08-03] MEDS: Polyethylene Glycol 3350 17 GM PACKET 34 GM PO ×2 (00:42→02:43)
[2018-08-03] MEDS: 0.9% NaCl Peripheral Flush Adult/Peds IV ×2 (05:06→05:07)
[2018-08-03] MEDS: hydrALAZINE 50 MG Tablet PO ×2 (05:12→21:40)
[2018-08-03 05:32] LABS: Absolute Lymphocyte Count 0.71 X10^3/ul (0.83-4.51); Absolute Neutrophil Count 3.9 X10^3/uL (2.0-7.7); Basophil# 0.01 X10^3/uL; Basophil% 0.2 % (0-1); Eosinophils% 1.8 % (0-5); Hematocrit 32.8 % (37-47); Hemoglobin 10.3 g/dl (12.0-15.0); Lymphocyte # 0.71 X10^3/ul (4.0); Mean Corp Hgb Conc 31.4 g/gl (32-36); Mean Corpuscular Hgb 27.5 pg (27.0-32.0); Mean Corpuscular Volume 87.7 fL (81-99); Mean Platelet Vol. 10.5 fl (6.2-12.0); Monocyte# 0.75 X10^3/uL; Monocyte% 13.7 % (0-10); Neutrophil # 3.89 X10^3/uL (2.7-7.7); Neutrophil % 70.9 % (47-70); Platelet Count 140 K/mm3 (150-450); RBC Distribution Width CV 15.2 % (11.6-14.6); RBC Distribution Width SD 47.5 fl (35.1-43.9); Red Blood Count 3.74 M/mm3 (4.2-5.4); White Blood Count 5.5 K/mm3 (4.4-11.0)
[2018-08-03 05:33] LABS: POSITIVE COUNT NO; POSITIVE DIFFERENTIAL NO; POSITIVE MORPHOLOGY NO
[2018-08-03 05:41] LABS: ALB/GLOB Ratio 0.8 RATIO (0.9-2.4); AST(SGOT) 57 U/L (15-37); Alanine Aminotransfer ALT/SGPT 379 U/L (13-56); Albumin, Serum 2.6 g/dL (3.2-5.0); Alkaline Phosphatase 152 U/L (45-117); Anion Gap 9 (5-15); BUN 24 mg/dL (7-18); BUN/Creat Ratio 5.5 RATIO (10-20); Bilirubin, Direct 0.51 mg/dL (0.00-0.30); Calcium,Total 8.2 mg/dL (8.5-10.1); Chloride 97 mmol/L (98-107); Creatinine, Serum 4.36 mg/dL (0.55-1.02); EST Glomerular Filtration Rate 11 mL/min (>60); Est Glom Filt Rate - Afr Amer 13 mL/min (>60); Estimated Creatinine Clearance 13.44 ml/min; Globulin 3.2 g/dL (2.2-4.2); Glucose 96 mg/dL (74-106); Phosphorus 4.9 mg/dL (2.5-4.9); Potassium 3.8 mmol/L (3.5-5.1); Protein, Total 5.8 g/dL (6.4-8.2); Sodium Level 135 mmol/L (136-145)
[2018-08-03 07:00] LABS: Bedside Glucose 102 mg/dL (70-110)
--- NOTE | 2018-08-03 07:27 | OP.ENDO_ITS ---
08/03/2018 Crystal Earl [address] [place] [address] Re : Colonoscopy procedure for Ivon Gonzalez Dear Dr. Earl This procedure was performed on July. My impressions and recommendations are as follows: Impressions : - The entire examined colon is normal on direct and retroflexion views. - No specimens collected. Recommendations : - Return patient to hospital [facility] for ongoing care. - Repeat colonoscopy in 10 years for screening purposes. - Continue present medications. My findings are described in the full procedure note, which is enclosed. If I can be of further assistance, please feel free to contact me at Doctor phone number(s): , Work: . Sincerely, Gary Garcia MD 08/03/2018 7:27:01 AM This report has been signed electronically.
--- NOTE | 2018-08-03 07:31 | PN.SURG_ITS ---
Patient Problems: Active and Suspected Problems Shock, unspecified (Acute) GI bleed (Acute) Acute liver failure (Acute) Coagulopathy (Acute) UTI (urinary tract infection) (Acute) Hepatic encephalopathy (Acute) Acute renal insufficiency (Acute) Acute renal failure (Acute) Subjective: no complaints - Physical Exam Abdomen: Bowel Sounds Present, Soft, Non Tender Vital Signs Temp Pulse Resp BP Pulse Ox 99.0 F 83 16 139/57 H 99 08/03/18 07:23 08/03/18 07:23 08/03/18 07:23 08/03/18 07:23 08/03/18 07:23 Oxygen Flow Rate (L/min) 1 Oxygen Delivery Method Room Air Weight: 103.3 kg Body Mass Index (BMI) 35.4 Finger Stick Blood Glucose 199 Intake and Output for Last 24 Hours 08/01/18 08/02/18 08/03/18 23:59 23:59 23:59 Intake Total 2788 / 2788 450 / 450 240 / 240 Output Total 60 / 60 3000 / 3000 Balance 2728 / 2728 -2550 / -2550 240 / 240 Microbiology Past 72 Hours 07/27/18 10:30 Blood Culture - Final Blood Culture (Wb) - Other No growth in 5 days. 07/27/18 12:00 Blood Culture - Final Blood Culture (Wb) - Other No growth in 5 days. Laboratory Tests Past 24 Hrs 07/29/18 08/03/18 08/03/18 20:15 05:00 05:00 WBC 5.5 RBC 3.74 L Hgb 10.3 L Hct 32.8 L MCV 87.7 MCH 27.5 MCHC 31.4 L RDW 15.2 H RDW Differential 47.5 H Plt Count 140 L MPV 10.5 Immature Gran % (Auto) 0.400 Neut % (Auto) 70.9 H Lymph % (Auto) 13.0 L [place] % (Auto) 13.7 H Eos % (Auto) 1.8 Baso % (Auto) 0.2 Absolute Neuts (auto) 3.9 Absolute Lymphs (auto) 0.71 L Total Counted Not Reportable Sodium 135 L Potassium 3.8 Chloride 97 L Carbon Dioxide 29.0 Anion Gap 9 BUN 24 H Creatinine 4.36 H Estim Creat Clear Calc 13.44 Est GFR (MDRD) Af Amer 13 L Est GFR (MDRD) Non-Af 11 L BUN/Creatinine Ratio 5.5 L Glucose 96 Calcium 8.2 L Phosphorus 4.9 Total Bilirubin 1.10 H Direct Bilirubin 0.51 H AST 57 H ALT 379 H Alkaline Phosphatase 152 H Total Protein 5.8 L Albumin 2.6 L Globulin 3.2 Albumin/Globulin Ratio 0.8 L RANDY Screen Negative POC Glucose 08/03/18 08/02/18 08/02/18 06:32 22:33 18:23 POC Glucose 102 104 100 08/02/18 13:17 POC Glucose 100 Medical Necessity - Tobacco Use Smoking Status: Current every day smoker Tobacco Use: Cigarettes Assessment/Plan All Active Problems Frequent falls (Acute) Shock, unspecified (Acute) GI bleed (Acute) Acute liver failure (Acute) Coagulopathy (Acute) UTI (urinary tract infection) (Acute) Hepatic encephalopathy (Acute) Acute renal insufficiency (Acute) Acute renal failure (Acute) Lightheadedness (Acute) Unsteady gait (Acute) Headache (Acute) Chest pain (Acute) Weakness of both arms (Resolved) Numbness and tingling of right face (Resolved) Difficulty speaking (Resolved) NSTEMI (non-ST elevated myocardial infarction) (Resolved) Jaw pain (Resolved) acute liver injury-likely secondary to alcohol abuse and steatohepatitis, lower GI bleeding, Electrolyte abnormalities, dehydration, hypotension The patient is currently on the floor. she has stable She has a central catheter placed. Vitals are stable her liver transaminases now normalizing with relatively normal bilirubin and alkaline phosphatase. CT scan of the abdomen with contrast demonstrated no portal vein thrombosis or hepatic vein thrombosis. Etiology is likely a combination of alcoholic hepatitis and steatohepatitis. liver enzymes are normalizing Patient remains anuric. hepatorenal syndrome? Ongoing dialysis. elevated troponins, decreased cardiac output from previous echocardiograms, understand family assessment worker plan is medical management. Hemoglobin stable-no further GI bleeding noted- Discussed with Dr. Sun - he feels patient is currently medically stable. As anticoagulation is a consideration given her cardiac status he would be most pleased if we could perform upper and lower endoscopy prior to starting anticoagulation and feels that her cardiac risk is low. We will therefore plan for bowel prep today and plan for upper and lower endoscopy tomorrow. Upper endoscopy yesterday - no worrisome findings. Colonsocopy yesterday failed due to poor prep. repeat colonoscopy - No abnormlaities. I am comfortable with any anticoagulants felt necessary by cardiology
[2018-08-03] MEDS: Aspirin 81 MG TAB.CHEW PO (08:17)
[2018-08-03] MEDS: Nystatin Powder 15gm Bottle 1 APPLIC TOPICAL (08:17)
[2018-08-03] MEDS: Metoprolol Tartrate 25 MG Tablet PO ×2 (08:17→21:39)
[2018-08-03] MEDS: oxyCODONE 5 MG Tablet PO ×2 (08:28→20:54)
--- NOTE | 2018-08-03 09:40 | PCM.PN.CARD ---
Subjectve: The patient is awake and alert. She has undergone upper and lower endoscopy without any obvious adverse cardiovascular events. She has started to make urine. Objective: Vital Signs Temp Pulse Resp BP Pulse Ox 97.8 F 79 15 157/59 H 97 08/03/18 08:05 08/03/18 08:17 08/03/18 08:05 08/03/18 08:17 08/03/18 08:05 Oxygen Flow Rate (L/min) 1 Oxygen Delivery Method Room Air Weight: 227 lb 11.8 oz Body Mass Index (BMI) 35.4 Finger Stick Blood Glucose 199 Intake and Output for Last 24 Hours 08/01/18 08/02/18 08/03/18 23:59 23:59 23:59 Intake Total 2788 / 2788 450 / 450 290 / 290 Output Total 60 / 60 3000 / 3000 Balance 2728 / 2728 -2550 / -2550 290 / 290 General: Awake, Alert, Oriented x 3, Cooperative HEENT: Atraumatic, Normocephalic, PERRL, EOMI, Sclera Non Icteric Oral: Moist Mucosa Neck: Supple, Good ROM, No JVD Lungs: Clear to auscultation Cardiovascular: Regular Rhythm, Normal S1, Normal S2 Murmur Murmur: Grade 2/6, Soft, Mid Systolic, LLSB, LVOT Abdomen: Bowel Sounds Present, Soft, Non Tender Extremities: Trace RLE Edema, Trace LLE Edema Psych/Mental Status: Appropriate 08/03/18 05:00: WBC 5.5, RBC 3.74 L, Hgb 10.3 L, Hct 32.8 L, MCV 87.7, MCH 27.5, MCHC 31.4 L, RDW 15.2 H, RDW Differential 47.5 H, Plt Count 140 L, MPV 10.5, Immature Gran % (Auto) 0.400, Neut % (Auto) 70.9 H, Lymph % (Auto) 13.0 L, [place] % (Auto) 13.7 H, Eos % (Auto) 1.8, Baso % (Auto) 0.2, Absolute Neuts (auto) 3.9, Total Counted Not Reportable 08/03/18 05:00: Sodium 135 L, Potassium 3.8, Chloride 97 L, Carbon Dioxide 29.0, Anion Gap 9, BUN 24 H, Creatinine 4.36 H, Est GFR (MDRD) Af Amer 13 L, Est GFR (MDRD) Non-Af 11 L, BUN/Creatinine Ratio 5.5 L, Glucose 96, Calcium 8.2 L, Phosphorus 4.9, Total Bilirubin 1.10 H, Direct Bilirubin 0.51 H Rhythm: Sinus rhythm Medical Necessity - Tobacco Use Smoking Status: Current every day smoker Tobacco Use: Cigarettes Assessment/Plan 1. Non-ST segment elevation NV At the present time the patient has findings compatible with a non-ST segment elevation NV. It is unclear at this time whether this finding represents true type I acute coronary syndrome versus a type II supply demand mismatch related event which may be secondary to her multiple organ failure events, etc. The patient has been placed on aspirin 81 mg a day. Thus far she appears to be doing well. As her endoscopy procedures were negative for acute hemorrhagic sources and per Dr. Garcia's note the patient can be started on antiplatelet/anticoagulant therapy. The patient will be placed on antiplatelet therapy with clopidogrel/Plavix. She will need to be monitored for any obvious increased hemorrhagic issues. As the patient hopefully continues to improve she can be considered for further cardiac evaluation. Again ideally this may, in the form of a diagnostic cardiac catheterization, however, there is hesitancy in proceeding so with her acute renal insufficiency for concerns of IV contrast related nephropathy. Thus she may need to be delegated to noninvasive evaluation with a pharmacologic stress nuclear imaging study. The timing of this is uncertain at this time. It will depend upon the patient's future clinical course. In the meantime she will continue medical management. 2. Cardiomyopathy Based upon her recent transthoracic echocardiogram her overall LV systolic function appears to be mildly diminished. She will continue medical therapy as able. She will continue with dialysis to assist with volume control until her renal function improves where she can maintain adequate urinary output to maintain volume status. 3. Hypertension Her medications can be adjusted as deemed appropriate. However consideration will have to be given to use medications hopefully can avoid interaction with her hepatic issues/renal issues. 4. GI bleed She has undergone upper and lower endoscopy. There apparently were no obvious hemorrhagic sources. She has been approved for additional antiplatelet and anticoagulant therapy by general surgery. 5. Hepatic failure He has marked elevation of her hepatic transaminase levels. They are improving. 6. Coagulopathy INR level has improved. 7. Renal insufficiency She continues with hemodialysis. However, she has begun to make urine. Hopefully this will continue and she will be able to have dialysis only on a temporary basis. Nephrology is following the patient. This note was generated using a voice recognition system and there may be incorrect words, spelling or punctuation that were not noted when reviewing the office note prior to saving.
--- NOTE | 2018-08-03 09:45 | PN.CARD_ITS ---
Subjectve: The patient is awake and alert. She has undergone upper and lower endoscopy without any obvious adverse cardiovascular events. She has started to make urine. Objective: Vital Signs Temp Pulse Resp BP Pulse Ox 97.8 F 79 15 157/59 H 97 08/03/18 08:05 08/03/18 08:17 08/03/18 08:05 08/03/18 08:17 08/03/18 08:05 Oxygen Flow Rate (L/min) 1 Oxygen Delivery Method Room Air Weight: 227 lb 11.8 oz Body Mass Index (BMI) 35.4 Finger Stick Blood Glucose 199 Intake and Output for Last 24 Hours 08/01/18 08/02/18 08/03/18 23:59 23:59 23:59 Intake Total 2788 / 2788 450 / 450 290 / 290 Output Total 60 / 60 3000 / 3000 Balance 2728 / 2728 -2550 / -2550 290 / 290 General: Awake, Alert, Oriented x 3, Cooperative HEENT: Atraumatic, Normocephalic, PERRL, EOMI, Sclera Non Icteric Oral: Moist Mucosa Neck: Supple, Good ROM, No JVD Lungs: Clear to auscultation Cardiovascular: Regular Rhythm, Normal S1, Normal S2 Murmur Murmur: Grade 2/6, Soft, Mid Systolic, LLSB, LVOT Abdomen: Bowel Sounds Present, Soft, Non Tender Extremities: Trace RLE Edema, Trace LLE Edema Psych/Mental Status: Appropriate 08/03/18 05:00: WBC 5.5, RBC 3.74 L, Hgb 10.3 L, Hct 32.8 L, MCV 87.7, MCH 27.5, MCHC 31.4 L, RDW 15.2 H, RDW Differential 47.5 H, Plt Count 140 L, MPV 10.5, Immature Gran % (Auto) 0.400, Neut % (Auto) 70.9 H, Lymph % (Auto) 13.0 L, [place] % (Auto) 13.7 H, Eos % (Auto) 1.8, Baso % (Auto) 0.2, Absolute Neuts (auto) 3.9, Total Counted Not Reportable 08/03/18 05:00: Sodium 135 L, Potassium 3.8, Chloride 97 L, Carbon Dioxide 29.0, Anion Gap 9, BUN 24 H, Creatinine 4.36 H, Est GFR (MDRD) Af Amer 13 L, Est GFR (MDRD) Non-Af 11 L, BUN/Creatinine Ratio 5.5 L, Glucose 96, Calcium 8.2 L, Phosphorus 4.9, Total Bilirubin 1.10 H, Direct Bilirubin 0.51 H Rhythm: Sinus rhythm Medical Necessity - Tobacco Use Smoking Status: Current every day smoker Tobacco Use: Cigarettes Assessment/Plan 1. Non-ST segment elevation SC At the present time the patient has findings compatible with a non-ST segment elevation SC. It is unclear at this time whether this finding represents true type I acute coronary syndrome versus a type II supply demand mismatch related event which may be secondary to her multiple organ failure events, etc. The patient has been placed on aspirin 81 mg a day. Thus far she appears to be doing well. As her endoscopy procedures were negative for acute hemorrhagic sources and per Dr. Garcia's note the patient can be started on antiplatelet/anticoagulant therapy. The patient will be placed on antiplatelet therapy with clopidogrel/Plavix. She will need to be monitored for any obvious increased hemorrhagic issues. As the patient hopefully continues to improve she can be considered for further cardiac evaluation. Again ideally this may, in the form of a diagnostic cardiac catheterization, however, there is hesitancy in proceeding so with her acute renal insufficiency for concerns of IV contrast related nephropathy. Thus she may need to be delegated to noninvasive evaluation with a pharmacologic stress nuclear imaging study. The timing of this is uncertain at this time. It will depend upon the patient's future clinical course. In the meantime she will continue medical management. 2. Cardiomyopathy Based upon her recent transthoracic echocardiogram her overall LV systolic f unction appears to be mildly diminished. She will continue medical therapy as able. She will continue with dialysis to assist with volume control until her renal function improves where she can main tain adequate urinary output to maintain volume status. 3. Hypertension Her medications can be adjusted as deemed appropriate. However consideration will have to be given to use medications hopefully can avoid interaction with her hepatic issues/renal issues. 4. GI bleed She has undergone upper and lower endoscopy. There apparently were no obvious hemorrhagic sources. She has been approved for additional antiplatelet and anticoagulant therapy by general surgery. 5. Hepatic failure He has marked elevation of her hepatic transaminase levels. They are improving. 6. Coagulopathy INR level has improved. 7. Renal insufficiency She continues with hemodialysis. However, she has begun to make urine. Hopefully this will continue and she will be able to have dialysis only on a temporary basis. Nephrology is following the patient. This note was generated using a voice recognition system and there may be incorrect words, spelling or punctuation that were not noted when reviewing the office note prior to saving.
[2018-08-03] MEDS: Clopidogrel Bisulfate 75 MG Tablet PO (10:18)
--- NOTE | 2018-08-03 10:23 | PN.RENAL_ITS ---
Patient Problems: Active and Suspected Problems Shock, unspecified (Acute) GI bleed (Acute) Acute liver failure (Acute) Coagulopathy (Acute) UTI (urinary tract infection) (Acute) Hepatic encephalopathy (Acute) Acute renal insufficiency (Acute) Acute renal failure (Acute) Subjective: Patient tolerated hemodialysis session yesterday well with 3 L ultrafiltration. No complaint today. No nausea no vomiting. No shortness of breath - Physical Exam General: Alert, Oriented x3 HEENT: Atraumatic Oral: Moist Mucosa Neck: Supple, No JVD Lungs: Clear to auscultation, Normal air movement, No rhonchi, No wheeze Cardiovascular: Regular rate, Regular Rhythm, Normal S1, Normal S2 Abdomen: Bowel Sounds Present, Soft, Non Tender, Non-Distended Extremities: No clubbing, No cyanosis, Edema - +1 edema of lower extremities Skin: No rashes Musculoskeletal: No Tenderness to Palpation of Joints or Extremities Lymphatic: No Cervical, Supraclavicular, or Inguinal Adenopathy Neurological: Cranial nerves II-XII grossly intact, Neuro grossly intact Psych/Mental Status: Normal Affect Vital Signs Temp Pulse Resp BP Pulse Ox 97.8 F 79 15 157/59 H 97 08/03/18 08:05 08/03/18 08:17 08/03/18 08:05 08/03/18 08:17 08/03/18 08:05 Oxygen Flow Rate (L/min) 1 Oxygen Delivery Method Room Air Weight: 103.3 kg Body Mass Index (BMI) 35.4 Finger Stick Blood Glucose 199 Intake and Output for Last 24 Hours 08/01/18 08/02/18 08/03/18 23:59 23:59 23:59 Intake Total 2788 / 2788 450 / 450 290 / 290 Output Total 60 / 60 3000 / 3000 Balance 2728 / 2728 -2550 / -2550 290 / 290 Microbiology Past 72 Hours 07/27/18 10:30 Blood Culture - Final Blood Culture (Wb) - Other No growth in 5 days. 07/27/18 12:00 Blood Culture - Final Blood Culture (Wb) - Other No growth in 5 days. Laboratory Tests Past 24 Hrs 07/29/18 08/03/18 08/03/18 20:15 05:00 05:00 WBC 5.5 RBC 3.74 L Hgb 10.3 L Hct 32.8 L MCV 87.7 MCH 27.5 MCHC 31.4 L RDW 15.2 H RDW Differential 47.5 H Plt Count 140 L MPV 10.5 Immature Gran % (Auto) 0.400 Neut % (Auto) 70.9 H Lymph % (Auto) 13.0 L [place] % (Auto) 13.7 H Eos % (Auto) 1.8 Baso % (Auto) 0.2 Absolute Neuts (auto) 3.9 Absolute Lymphs (auto) 0.71 L Total Counted Not Reportable Sodium 135 L Potassium 3.8 Chloride 97 L Carbon Dioxide 29.0 Anion Gap 9 BUN 24 H Creatinine 4.36 H Estim Creat Clear Calc 13.44 Est GFR (MDRD) Af Amer 13 L Est GFR (MDRD) Non-Af 11 L BUN/Creatinine Ratio 5.5 L Glucose 96 Calcium 8.2 L Phosphorus 4.9 Total Bilirubin 1.10 H Direct Bilirubin 0.51 H AST 57 H ALT 379 H Alkaline Phosphatase 152 H Total Protein 5.8 L Albumin 2.6 L Globulin 3.2 Albumin/Globulin Ratio 0.8 L RANDY Screen Negative POC Glucose 08/03/18 08/02/18 08/02/18 06:32 22:33 18:23 POC Glucose 102 104 100 08/02/18 13:17 POC Glucose 100 Medical Necessity - Tobacco Use Smoking Status: Current every day smoker Tobacco Use: Cigarettes Assessment/Plan All Active Problems Frequent falls (Acute) Shock, unspecified (Acute) GI bleed (Acute) Acute liver failure (Acute) Coagulopathy (Acute) UTI (urinary tract infection) (Acute) Hepatic encephalopathy (Acute) Acute renal insufficiency (Acute) Acute renal failure (Acute) Lightheadedness (Acute) Unsteady gait (Acute) Headache (Acute) Chest pain (Acute) Weakness of both arms (Resolved) Numbness and tingling of right face (Resolved) Difficulty speaking (Resolved) NSTEMI (non-ST elevated myocardial infarction) (Resolved) Jaw pain (Resolved) 1-Acute kidney injury from possible hepatorenal syndrome.UA showed protein 100, WBC 25-50 RBC 12 25. GN needs to be rule out. C3/C4 RANDY, ANCA are pending Currently the patient hemodialysis dependent for fluid and metabolic support. Hemodialysis started on July 28. No recovery of kidney function. Patient remains oliguric. Last hemodialysis session was August 02 3 L ultrafiltration Avoid NSAIDs/BYRON or ARB. I will continue to monitor for kidney function recovery. Will try to reach out to Dr. Garcia to exchange the hemodialysis access to tunneled catheter 2-hyperkalemia: Resolved with hemodialysis. 3-acute liver injury. Possible from medication. LFTs trend is improving. 4-non-ST SC. Cardiology service is following. No plan for cardiac cath for now. Medical treatment as per the cardiology service Renal team will continue to follow. Please call with any question at [phone] Plan of care was discussed with Dr. Nohemi Jordan MD
[2018-08-03 11:55] LABS: Bedside Glucose 124 mg/dL (70-110)
--- NOTE | 2018-08-03 12:12 | CON.PCM_ITS ---
Problem List (1) Acute renal failure Status: Acute Reason for Consult Date of Consultation: 08/03/18 Reason for Consultation: Acute renal failure. In need of tunneled dialysis catheters. History of Present Illness: The patient is a 63 year old F who presented to the ED on 07/27 with bright red blood per rectum. Most of patient's history was gathered from charting as the patient does not remember most of her hospitalization. Patient states she remembers her significant other trying to wake her. Patient notes she had fallen asleep and had been asleep for 15 hours. Her boyfriend tried to wake her and had a hard time. Ambulance was called and patient was brought to the ED. Patient was diagnosed with drug induced liver injury possibly medication and alcohol related. Patient has never had renal issues previously. Patient has never been on dialysis. Patient had a temporary right IJ chest catheter placed on 07/28. Dialysis was initiated. Patient has had a previous stroke and 2 myocardial infarctions. 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 Patient's troponin levels were as high as 6.1 on 07/28. Patient is currently taking aspirin and Plavix as an outpatient. Patient states she smokes 1 ppd of cigarettes since the age of [age]. Patient also has an extensive alcohol history. Patient states she drinks 1 quart of whiskey daily for years. She is unsure how long she has been consuming that amount of alcohol. Patient states 1 month ago she had suicidal ideations. She had no plan. She states she no longer has those thoughts. Patient had a colonoscopy today by Dr. Garcia which demonstrated normal examined colon. Recommend repeat in 10 years. EGD was performed on 08/02 which demonstrated normal esophagus, stomach and duodenum. No source of bleeding during either procedure. Patient's creatinine is 4.36. Nephrology is requesting an exchange to tunneled hemodialysis catheters. Past Medical History Past Medical History (Chronic Problems): Chronic Problems Cardiomyopathy (Chronic) HTN (hypertension) (Chronic) Tobacco use disorder (Chronic) Esophageal reflux (Chronic) Depressive disorder (Chronic) Back ache (Chronic) Irritable bowel syndrome (IBS) (Chronic) Anxiety disorder (Chronic) Allergies duloxetine HCl [From Cymbalta] Adverse Reaction (Verified 07/25/18 09:39) Other morphine Adverse Reaction (Verified 07/25/18 09:39) Itching pramipexole di-HCl [From Mirapex] Adverse Reaction (Verified 07/25/18 09:39) Other Sulfa (Sulfonamide Antibiotics) Adverse Reaction (Verified 07/25/18 09:39) Unknown tramadol HCl [From Ultram] Adverse Reaction (Verified 07/25/18 09:39) Itching varenicline [From Chantix] Adverse Reaction (Verified 07/25/18 09:39) Unknown Home Medications: Ambulatory Orders Medication Instructions Recorded Acyclovir [Zovirax] 400 mg PO BID 08/20/13 Amitriptyline HCl [Elavil] 100 - 150 mg PO QHS PRN 08/20/13 Nitroglycerin [Nitrostat] 0.4 mg SL PRN PRN 08/20/13 Oxycodone [Oxyir] 10 mg PO Q6H PRN PRN #40 tablet 09/05/13 Clonazepam [Klonopin] 0.5 mg PO QHS 08/14/15 Clopidogrel Bisulfate [Plavix] 75 mg PO DAILY 08/14/15 Metoprolol Tartrate [Lopressor 25 mg PO BID 08/14/15 (beta codie)] Tizanidine HCl [Zanaflex] 4 mg PO DAILY PRN PRN 08/14/15 Aspirin [Aspirin, Baby] 81 mg PO DAILY@0800 09/08/17 Dicyclomine HCl [Bentyl] 10 mg PO ACHS 09/08/17 Omeprazole 40 mg PO BID 09/08/17 Triamcinolone 0.025% Cream 1 applic TOPICAL BID PRN 09/08/17 [Kenalog] Amlodipine [Norvasc] 5 mg PO DAILY #60 tab 09/09/17 Lisinopril [Zestril] 20 mg PO DAILY #60 tab 09/09/17 Nystatin Powder [Mycostatin Powder] 1 applic TOPICAL 4X/DAY 07/16/18 Polyethylene Glycol 3350 [Miralax] 17 gm PO DAILY 07/16/18 Rosuvastatin Calcium [Crestor] 10 mg PO QHS 07/16/18 Albuterol Inhaler [Ventolin Hfa 2 puff INHALATION Q4H PRN PRN 07/27/18 (SP)] Mupirocin [Bactroban] 1 applic TOPICAL TID 07/27/18 Sertraline HCl [Zoloft] 50 mg PO DAILY 07/27/18 busPIRone [Buspar] 15 mg PO BID 07/27/18 Surgical History: noncontributory, - - Uterine suspension, coronary artery stent placement Psychiatric History: Depression Lives: Spouse/ Significant Other Smoking Status: Current every day smoker Tobacco Use: Cigarettes Alcohol: Heavy - 1 quart of Whiskey per day - *Family History Maternal History Items: No pertinent history - Patient was adopted Paternal History Items: No pertinent history - Was adopted Review of Systems Constitutional: Reports: Weakness, Fatigue HEENT: Denies: Head Aches, Sinus Congestion, Sinus Drainage Cardiovascular: Denies: Chest Pain, Palpitations Respiratory: Denies: Cough, Shortness of breath at rest, Sputum production Gastrointestinal: Denies: Abdominal Pain, Nausea, Vomiting Genitourinary: Denies: Dysuria Musculoskeletal: Denies: Joint Pain, Joint Tenderness Skin: Denies: Rash, Wounds Neurological: Reports: Balance problems Psychiatric: Reports: Depression Hematologic/ Lymphatic: Reports: Easy Bruising, Easy Bleeding Patient Problems: Active and Suspected Problems Shock, unspecified (Acute) GI bleed (Acute) Acute liver failure (Acute) Coagulopathy (Acute) UTI (urinary tract infection) (Acute) Hepatic encephalopathy (Acute) Acute renal insufficiency (Acute) Acute renal failure (Acute) - Physical Exam General: Alert, Cooperative, Disoriented - at times HEENT: Atraumatic, PERRLA, EOMI, Normocephalic Neck: Supple, No JVD, Negative Carotid Bruits, - - Temporary right tunneled dialysis catheters in the neck Lungs: Clear to auscultation, Normal air movement Cardiovascular: Regular rate, No murmurs Abdomen: Bowel Sounds Present, Soft, Non Tender Extremities: No edema, Capillary Refill Less than 3 Seconds Skin: - - Ecchymosis throughout her upper extremities. Skin tear on the left forearm. Musculoskeletal: No Tenderness to Palpation of Joints or Extremities Neurological: Neuro grossly intact Psych/Mental Status: Depressed Vital Signs Temp Pulse Resp BP Pulse Ox 97.8 F 77 15 157/59 H 97 08/03/18 08:05 08/03/18 10:51 08/03/18 08:05 08/03/18 08:17 08/03/18 08:05 Oxygen Flow Rate (L/min) 1 Oxygen Delivery Method Room Air Weight: 227 lb 11.8 oz Body Mass Index (BMI) 35.4 Finger Stick Blood Glucose 199 Intake and Output for Last 24 Hours 08/01/18 08/02/18 08/03/18 23:59 23:59 23:59 Intake Total 2788 / 2788 450 / 450 909 / 909 Output Total 60 / 60 3000 / 3000 Balance 2728 / 2728 -2550 / -2550 909 / 909 Microbiology Past 72 Hours 07/27/18 10:30 Blood Culture - Final Blood Culture (Wb) - Other No growth in 5 days. 07/27/18 12:00 Blood Culture - Final Blood Culture (Wb) - Other No growth in 5 days. Laboratory Tests Past 24 Hrs 08/03/18 08/03/18 05:00 05:00 WBC 5.5 RBC 3.74 L Hgb 10.3 L Hct 32.8 L MCV 87.7 MCH 27.5 MCHC 31.4 L RDW 15.2 H RDW Differential 47.5 H Plt Count 140 L MPV 10.5 Immature Gran % (Auto) 0.400 Neut % (Auto) 70.9 H Lymph % (Auto) 13.0 L [place] % (Auto) 13.7 H Eos % (Auto) 1.8 Baso % (Auto) 0.2 Absolute Neuts (auto) 3.9 Absolute Lymphs (auto) 0.71 L Total Counted Not Reportable Sodium 135 L Potassium 3.8 Chloride 97 L Carbon Dioxide 29.0 Anion Gap 9 BUN 24 H Creatinine 4.36 H Estim Creat Clear Calc 13.44 Est GFR (MDRD) Af Amer 13 L Est GFR (MDRD) Non-Af 11 L BUN/Creatinine Ratio 5.5 L Glucose 96 Calcium 8.2 L Phosphorus 4.9 Total Bilirubin 1.10 H Direct Bilirubin 0.51 H AST 57 H ALT 379 H Alkaline Phosphatase 152 H Total Protein 5.8 L Albumin 2.6 L Globulin 3.2 Albumin/Globulin Ratio 0.8 L POC Glucose 08/03/18 08/03/18 08/02/18 11:52 06:32 22:33 POC Glucose 124 H 102 104 08/02/18 08/02/18 18:23 13:17 POC Glucose 100 100 Assessment/Plan All Active Problems Frequent falls (Acute) Shock, unspecified (Acute) GI bleed (Acute) Acute liver failure (Acute) Coagulopathy (Acute) UTI (urinary tract infection) (Acute) Hepatic encephalopathy (Acute) Acute renal insufficiency (Acute) Acute renal failure (Acute) Lightheadedness (Acute) Unsteady gait (Acute) Headache (Acute) Chest pain (Acute) Weakness of both arms (Resolved) Numbness and tingling of right face (Resolved) Difficulty speaking (Resolved) NSTEMI (non-ST elevated myocardial infarction) (Resolved) Jaw pain (Resolved) I have been consulted in conjunction with Dr. Birch Impression: Drug induced liver injury. Acute renal injury. Alcoholic. Non-STEMI this hospitalization. In need of tunneled dialysis catheters. Plan: I have discussed this patient with Dr. Birch. Dr. Birch will plan to perform a right IJ chest tunneled hemodialysis chest catheters. Procedure details, risks and benefits have been explained to the patient. Patient has had the opportunity to ask and have questions answered. Patient verbally understands and agrees to proceed with the proposed procedure. Temporary dialysis catheters will be removed prior to the procedure. Patient to be NPO. Patient has had aspirin and Plavix today. Thank you for allowing us to participate in this patient's care. Code Visit Office Visits / Consults: 37540 IP Consult L3 - No charge. Procedure with Dr. Birch.
--- NOTE | 2018-08-03 12:59 | PCM.PN.HOSP ---
Patient Problems: Active and Suspected Problems Shock, unspecified (Acute) GI bleed (Acute) Acute liver failure (Acute) Coagulopathy (Acute) UTI (urinary tract infection) (Acute) Hepatic encephalopathy (Acute) Acute renal insufficiency (Acute) Acute renal failure (Acute) Subjective: Patient seen and examined. She felt well and had no complaints. Review of systems otherwise negative. She had colonoscopy this morning which was negative. Labs and vitals reviewed. Dr. Birch consulted for placement of tunneled catheter for dialysis. Vitals/I&O's: Vital Signs Temp Pulse Resp BP Pulse Ox 97.8 F 77 15 157/59 H 97 08/03/18 08:05 08/03/18 10:51 08/03/18 08:05 08/03/18 08:17 08/03/18 08:05 Oxygen Flow Rate (L/min) 1 Oxygen Delivery Method Room Air Weight: 227 lb 11.8 oz Body Mass Index (BMI) 35.4 Finger Stick Blood Glucose 199 Intake and Output for Last 24 Hours 08/01/18 08/02/18 08/03/18 23:59 23:59 23:59 Intake Total 2788 / 2788 450 / 450 909 / 909 Output Total 60 / 60 3000 / 3000 Balance 2728 / 2728 -2550 / -2550 909 / 909 General: Alert, Oriented x3, Cooperative, HEENT: Atraumatic, PERRLA, EOMI, Normocephalic Oral: Dry Mucosa Neck: Supple, No JVD, Negative Carotid Bruits Lungs: - - diminished breath sounds bibasally, no wheezes or crackles. Cardiovascular: Regular rate, Regular Rhythm, Normal S1, Normal S2, No murmurs Abdomen: Bowel Sounds Present, Soft, Non Tender, Non-Distended, No Hepato-splenomegaly Extremities: No clubbing, No cyanosis, No edema, Capillary Refill Less than 3 Seconds Skin: No rashes, No breakdown Musculoskeletal: No Tenderness to Palpation of Joints or Extremities Lymphatic: No Cervical, Supraclavicular, or Inguinal Adenopathy Neurological: Cranial nerves II-XII grossly intact, Neuro grossly intact, Motor Exam 5/5 strength throughout Psych/Mental Status: Normal Affect, Appropriate, Alert and oriented to time, place, person, mood and affect Microbiology Past 72 Hours 07/27/18 10:30 Blood Culture (Wb) - Other Blood Culture - Final No growth in 5 days. 07/27/18 12:00 Blood Culture (Wb) - Other Blood Culture - Final No growth in 5 days. Laboratory Results 08/02/18 13:17: POC Glucose 100 08/02/18 18:23: POC Glucose 100 08/02/18 22:33: POC Glucose 104 08/03/18 05:00: WBC 5.5, RBC 3.74 L, Hgb 10.3 L, Hct 32.8 L, MCV 87.7, MCH 27.5, MCHC 31.4 L, RDW 15.2 H, RDW Differential 47.5 H, Plt Count 140 L, MPV 10.5, Immature Gran % (Auto) 0.400, Neut % (Auto) 70.9 H, Lymph % (Auto) 13.0 L, [place] % (Auto) 13.7 H, Eos % (Auto) 1.8, Baso % (Auto) 0.2, Absolute Neuts (auto) 3.9, Absolute Lymphs (auto) 0.71 L, Total Counted Not Reportable 08/03/18 05:00: Sodium 135 L, Potassium 3.8, Chloride 97 L, Carbon Dioxide 29.0, Anion Gap 9, BUN 24 H, Creatinine 4.36 H, Estim Creat Clear Calc 13.44, Est GFR (MDRD) Af Amer 13 L, Est GFR (MDRD) Non-Af 11 L, BUN/Creatinine Ratio 5.5 L, Glucose 96, Calcium 8.2 L, Phosphorus 4.9, Total Bilirubin 1.10 H, Direct Bilirubin 0.51 H, AST 57 H, ALT 379 H, Alkaline Phosphatase 152 H, Total Protein 5.8 L, Albumin 2.6 L, Globulin 3.2, Albumin/Globulin Ratio 0.8 L 08/03/18 06:32: POC Glucose 102 08/03/18 11:52: POC Glucose 124 H Current Medications Aspirin (Aspirin, Baby) 81 mg PO DAILY@0800 [facility] Last Admin: 08/03/18 08:17 Dose: 81 mg Clopidogrel Bisulfate (Plavix) 75 mg PO DAILY [facility] Last Admin: 08/03/18 10:18 Dose: 75 mg Heparin Sodium (Porcine) () 2,500 units IV UD PRN PRN Reason: HEPARIN FLUSH Last Admin: 08/02/18 18:36 Dose: 2,500 units Hydralazine HCl (Apresoline Iv) 10 mg IV Q4H PRN PRN PRN Reason: SBP>200 MMHG Hydralazine HCl (Apresoline) 50 mg PO TID [facility] Hydralazine HCl (Apresoline) 25 mg PO TID [facility] Sodium Chloride () 250 mls @ 15 mls/hr IV .[id number] PRN PRN Reason: SALINE FLUSH Last Admin: 07/27/18 21:44 Dose: 15 mls/hr Pantoprazole Sodium 40 mg/ (Sodium Chloride) 110 mls @ 330 mls/hr IV Q24 [facility] Last Admin: 08/03/18 10:18 Dose: 330 mls/hr Cefazolin Sodium 2 gm/ Sodium (Chloride) 120 mls @ 240 mls/hr IV SEND TO OR W/PATIENT ONE Stop: 08/03/18 13:29 Insulin Human Lispro (Humalog Kwikpen (Bkc)) 0 unit SC ACHS [facility]; Protocol Last Admin: 08/03/18 12:03 Dose: Not Given Metoprolol Tartrate (Lopressor (Beta Denis)) 25 mg PO BID [facility] Last Admin: 08/03/18 08:17 Dose: 25 mg Nitroglycerin (Nitrostat) 0.4 mg SUBLINGUAL Q5M PRN PRN Reason: CARDIAC/CHEST PAIN Nystatin (Mycostatin Powder) 1 applic TOPICAL 4X/DAY [facility] Last Admin: 08/03/18 08:17 Dose: 1 applicatio Ondansetron HCl (Zofran) 4 mg IV Q8H PRN PRN PRN Reason: NAUSEA Oxycodone HCl (Oxyir) 5 - 10 mg PO Q6H PRN PRN PRN Reason: SEVERE PAIN (6-10/10) Last Admin: 08/03/18 08:28 Dose: 5 mg Polyethylene Glycol (Miralax) 34 gm PO Q2H PRN PRN Reason: Constipation Last Admin: 08/03/18 02:43 Dose: 34 gm Senna (Senokot) 1 tablet PO DAILY PRN PRN PRN Reason: CONSTIPATION Last Admin: 08/01/18 08:18 Dose: 1 tablet Sodium Chloride () 5 - 15 ml IV UD PRN PRN Reason: SALINE FLUSH Last Admin: 08/03/18 05:07 Dose: 10 ml Sodium Chloride () 10 - 40 ml IV UD PRN PRN Reason: MULTILUMEN/HICMAN CATH FLUSH Last Admin: 07/31/18 05:08 Dose: 40 ml Sodium Chloride () 10 ml IV UD PRN PRN Reason: Dialysis Catheter Flush Last Admin: 08/03/18 10:18 Dose: 10 ml Triamcinolone Acetonide (Triamcinolone Acetonide) 1 applic TOPICAL BID PRN PRN Reason: RASH/TOPICAL IRRITATION Medical Necessity - Tobacco Use Smoking Status: Current every day smoker Tobacco Use: Cigarettes Assessment/Plan All Active Problems Frequent falls (Acute) Shock, unspecified (Acute) GI bleed (Acute) Acute liver failure (Acute) Coagulopathy (Acute) UTI (urinary tract infection) (Acute) Hepatic encephalopathy (Acute) Acute renal insufficiency (Acute) Acute renal failure (Acute) Lightheadedness (Acute) Unsteady gait (Acute) Headache (Acute) Chest pain (Acute) Weakness of both arms (Resolved) Numbness and tingling of right face (Resolved) Difficulty speaking (Resolved) NSTEMI (non-ST elevated myocardial infarction) (Resolved) Jaw pain (Resolved) 1. Acute liver injury likely medication induced resolved. Will monitor oxycodone, Zovirax, tizanidine, Klonopin, amitriptyline and Crestor which can all cause liver injury remain on hold coagulopathy has resolved. 2. GEORGE on CKD 3 nephrology on board; getting regular dialysis for placement of tunneled dialysis catheter for fdc dialysis today 3. Hyponatremia: Na is 135 today; 4. Hyperkalemia: Resolved. 4. Chronic lower GI bleed: Stable. Colonoscopy showed unsatisfactory prep with stool in the rectum and so no specimens were collected. Patient to have MiraLAX 1-4 capfuls twice daily today and for repeat colonoscopy tomorrow. EGD showed normal jejunum and duodenum as well as stomach. Stomach was biopsied. Esophagus was also normal. repeat colonoscopy today showed normal colonoscopy will swicht o PO PPI. for repeat colonoscopy in 10 years for screening purposes on IV PPI 5. Hypotension: Resolved. 6. Non-STEMI: troponin was initially 0.504 and trended up to 6.1 and down to 3.52. Cardiology on board. Echo done 07/28/18 showed EF of 45% with moderate global hypokinesis. RVSP was around 71 mmHg and there was evidence of diastolic dysfunction. Cardiology on board. Patient not deemed to be stable enough cardiac cath now on aspirin, in light of negative EGD and colonoscopy, will discuss with cardiology about adding on antiplatelets. 7. Hypertension: controlled. On metoprolol and hydralazine. lisinopril held o/a of kidney injury 8. Depression and anxiety:stable 9. GERD: on PO PPI 10. Hyperlipidemia/obesity:statins on hold o/a of liver injury 11. Thrombocytopenia; platelets were 223 on admission,was 111 yesterday; now 140 today. Likely due to coagulopathy. Not received any heparin or lovenox or any other blood thinner. WIll monitor 12. Nicotine dependence: on nicotine patch. DVT prophylaxis: SCDs. No anticoagulation on account of coagulopathy. Disposition: for SNF placement when medically stable Code Visit Inpatient E&M: 76604 [facility] L[facility]
--- NOTE | 2018-08-03 13:09 | PN_ITS ---
Patient Problems: Active and Suspected Problems Shock, unspecified (Acute) GI bleed (Acute) Acute liver failure (Acute) Coagulopathy (Acute) UTI (urinary tract infection) (Acute) Hepatic encephalopathy (Acute) Acute renal insufficiency (Acute) Acute renal failure (Acute) Subjective: Patient seen and examined. She felt well and had no complaints. Review of systems otherwise negative. She had colonoscopy this morning which was negative. Labs and vitals reviewed. Dr. Birch consulted for placement of tunneled catheter for dialysis. Vitals/I&O's: Vital Signs Temp Pulse Resp BP Pulse Ox 97.8 F 77 15 157/59 H 97 08/03/18 08:05 08/03/18 10:51 08/03/18 08:05 08/03/18 08:17 08/03/18 08:05 Oxygen Flow Rate (L/min) 1 Oxygen Delivery Method Room Air Weight: 227 lb 11.8 oz Body Mass Index (BMI) 35.4 Finger Stick Blood Glucose 199 Intake and Output for Last 24 Hours 08/01/18 08/02/18 08/03/18 23:59 23:59 23:59 Intake Total 2788 / 2788 450 / 450 909 / 909 Output Total 60 / 60 3000 / 3000 Balance 2728 / 2728 -2550 / -2550 909 / 909 General: Alert, Oriented x3, Cooperative, HEENT: Atraumatic, PERRLA, EOMI, Normocephalic Oral: Dry Mucosa Neck: Supple, No JVD, Negative Carotid Bruits Lungs: - - diminished breath sounds bibasally, no wheezes or crackles. Cardiovascular: Regular rate, Regular Rhythm, Normal S1, Normal S2, No murmurs Abdomen: Bowel Sounds Present, Soft, Non Tender, Non-Distended, No Hepato- splenomegaly Extremities: No clubbing, No cyanosis, No edema, Capillary Refill Less than 3 Seconds Skin: No rashes, No breakdown Musculoskeletal: No Tenderness to Palpation of Joints or Extremities Lymphatic: No Cervical, Supraclavicular, or Inguinal Adenopathy Neurological: Cranial nerves II-XII grossly intact, Neuro grossly intact, Motor Exam 5/5 strength throughout Psych/Mental Status: Normal Affect, Appropriate, Alert and oriented to time, place, person, mood and affect Microbiology Past 72 Hours 07/27/18 10:30 Blood Culture (Wb) - Other Blood Culture - Final No growth in 5 days. 07/27/18 12:00 Blood Culture (Wb) - Other Blood Culture - Final No growth in 5 days. Laboratory Results 08/02/18 13:17: POC Glucose 100 08/02/18 18:23: POC Glucose 100 08/02/18 22:33: POC Glucose 104 08/03/18 05:00: WBC 5.5, RBC 3.74 L, Hgb 10.3 L, Hct 32.8 L, MCV 87.7, MCH 27.5, MCHC 31.4 L, RDW 15.2 H, RDW Differential 47.5 H, Plt Count 140 L, MPV 10.5, Immature Gran % (Auto) 0.400, Neut % (Auto) 70.9 H, Lymph % (Auto) 13.0 L, [place] % (Auto) 13.7 H, Eos % (Auto) 1.8, Baso % (Auto) 0.2, Absolute Neuts (auto) 3.9, Absolute Lymphs (auto) 0.71 L, Total Counted Not Reportable 08/03/18 05:00: Sodium 135 L, Potassium 3.8, Chloride 97 L, Carbon Dioxide 29.0, Anion Gap 9, BUN 24 H, Creatinine 4.36 H, Estim Creat Clear Calc 13.44, Est GFR (MDRD) Af Amer 13 L, Est GFR (MDRD) Non-Af 11 L, BUN/Creatinine Ratio 5.5 L, Glucose 96, Calcium 8.2 L, Phosphorus 4.9, Total Bilirubin 1.10 H, Direct Bilirubin 0.51 H, AST 57 H, ALT 379 H, Alkaline Phosphatase 152 H, Total Protein 5.8 L, Albumin 2.6 L, Globulin 3.2, Albumin/Globulin Ratio 0.8 L 08/03/18 06:32: POC Glucose 102 08/03/18 11:52: POC Glucose 124 H Current Medications Aspirin (Aspirin, Baby) 81 mg PO DAILY@0800 [facility] Last Admin: 08/03/18 08:17 Dose: 81 mg Clopidogrel Bisulfate (Plavix) 75 mg PO DAILY [facility] Last Admin: 08/03/18 10:18 Dose: 75 mg Heparin Sodium (Porcine) () 2,500 units IV UD PRN PRN Reason: HEPARIN FLUSH Last Admin: 08/02/18 18:36 Dose: 2,500 units Hydralazine HCl (Apresoline Iv) 10 mg IV Q4H PRN PRN PRN Reason: SBP>200 MMHG Hydralazine HCl (Apresoline) 50 mg PO TID [facility] Hydralazine HCl (Apresoline) 25 mg PO TID [facility] Sodium Chloride () 250 mls @ 15 mls/hr IV .[id number] PRN PRN Reason: SALINE FLUSH Last Admin: 07/27/18 21:44 Dose: 15 mls/hr Pantoprazole Sodium 40 mg/ (Sodium Chloride) 110 mls @ 330 mls/hr IV Q24 NELIDA Last Admin: 08/03/18 10:18 Dose: 330 mls/hr Cefazolin Sodium 2 gm/ Sodium (Chloride) 120 mls @ 240 mls/hr IV SEND TO OR W/PATIENT ONE Stop: 08/03/18 13:29 Insulin Human Lispro (Humalog Kwikpen (Bkc)) 0 unit SC ACHS [facility]; Protocol Last Admin: 08/03/18 12:03 Dose: Not Given Metoprolol Tartrate (Lopressor (Beta Denis)) 25 mg PO BID [facility] Last Admin: 08/03/18 08:17 Dose: 25 mg Nitroglycerin (Nitrostat) 0.4 mg SUBLINGUAL Q5M PRN PRN Reason: CARDIAC/CHEST PAIN Nystatin (Mycostatin Powder) 1 applic TOPICAL 4X/DAY [facility] Last Admin: 08/03/18 08:17 Dose: 1 applicatio Ondansetron HCl (Zofran) 4 mg IV Q8H PRN PRN PRN Reason: NAUSEA Oxycodone HCl (Oxyir) 5 - 10 mg PO Q6H PRN PRN PRN Reason: SEVERE PAIN (6-10/10) Last Admin: 08/03/18 08:28 Dose: 5 mg Polyethylene Glycol (Miralax) 34 gm PO Q2H PRN PRN Reason: Constipation Last Admin: 08/03/18 02:43 Dose: 34 gm Senna (Senokot) 1 tablet PO DAILY PRN PRN PRN Reason: CONSTIPATION Last Admin: 08/01/18 08:18 Dose: 1 tablet Sodium Chloride () 5 - 15 ml IV UD PRN PRN Reason: SALINE FLUSH Last Admin: 08/03/18 05:07 Dose: 10 ml Sodium Chloride () 10 - 40 ml IV UD PRN PRN Reason: MULTILUMEN/HICMAN CATH FLUSH Last Admin: 07/31/18 05:08 Dose: 40 ml Sodium Chloride () 10 ml IV UD PRN PRN Reason: Dialysis Catheter Flush Last Admin: 08/03/18 10:18 Dose: 10 ml Triamcinolone Acetonide (Triamcinolone Acetonide) 1 applic TOPICAL BID PRN PRN Reason: RASH/TOPICAL IRRITATION Medical Necessity - Tobacco Use Smoking Status: Current every day smoker Tobacco Use: Cigarettes Assessment/Plan All Active Problems Frequent falls (Acute) Shock, unspecified (Acute) GI bleed (Acute) Acute liver failure (Acute) Coagulopathy (Acute) UTI (urinary tract infection) (Acute) Hepatic encephalopathy (Acute) Acute renal insufficiency (Acute) Acute renal failure (Acute) Lightheadedness (Acute) Unsteady gait (Acute) Headache (Acute) Chest pain (Acute) Weakness of both arms (Resolved) Numbness and tingling of right face (Resolved) Difficulty speaking (Resolved) NSTEMI (non-ST elevated myocardial infarction) (Resolved) Jaw pain (Resolved) 1. Acute liver injury likely medication induced * resolved. Will monitor * oxycodone, Zovirax, tizanidine, Klonopin, amitriptyline and Crestor which can all cause liver injury remain on hold * coagulopathy has resolved. * 2. GEORGE on CKD 3 * nephrology on board; getting regular dialysis * for placement of tunneled dialysis catheter for fpc dialysis today * 3. Hyponatremia: * Na is 135 today; * * 4. Hyperkalemia: Resolved. 4. Chronic lower GI bleed: * Stable. * Colonoscopy showed unsatisfactory prep with stool in the rectum and so no specimens were collected. Patient to have MiraLAX 1-4 capfuls twice daily today and for repeat colonoscopy tomorrow. * EGD showed normal jejunum and duodenum as well as stomach. Stomach was biopsied. Esophagus was also normal. * repeat colonoscopy today showed normal colonoscopy * will swicht o PO PPI. for repeat colonoscopy in 10 years for screening purposes * on IV PPI * 5. Hypotension: Resolved. 6. Non-STEMI: * troponin was initially 0.504 and trended up to 6.1 and down to 3.52. Cardiology on board. * Echo done 07/28/18 showed EF of 45% with moderate global hypokinesis. RVSP was around 71 mmHg and there was evidence of diastolic dysfunction. * Cardiology on board. Patient not deemed to be stable enough cardiac cath now * on aspirin, in light of negative EGD and colonoscopy, will discuss with cardiology about adding on antiplatelets. * 7. Hypertension: controlled. On metoprolol and hydralazine. lisinopril held o/a of kidney injury 8. Depression and anxiety:stable 9. GERD: on PO PPI 10. Hyperlipidemia/obesity:statins on hold o/a of liver injury 11. Thrombocytopenia; * platelets were 223 on admission,was 111 yesterday; now 140 today. * Likely due to coagulopathy. Not received any heparin or lovenox or any other blood thinner. * WIll monitor 12. Nicotine dependence: on nicotine patch. DVT prophylaxis: SCDs. No anticoagulation on account of coagulopathy. Disposition: for SNF placement when medically stable Code Visit Inpatient E&M: 44627 [facility] Hosp L3
[2018-08-03 14:10] LABS: Anti-Glomerular Basement Memb 4 units (0-20); Perinuclear Ab (P-ANCA) <1:20 titer (Neg:<1:20)
--- NOTE | 2018-08-03 14:29 | CASEMGMT ---
Josephine at [facility] aware that pt getting tunnel cath today at 1600 and that we are still awaiting precert for SNF at this time, voices understanding. Ankit PLUNKETT CM
--- NOTE | 2018-08-03 14:52 | NURSING ---
report called to ac at [phone]
--- NOTE | 2018-08-03 16:43 | PCM.PN.BLA ---
Progress Note I have reviewed consult provided per NIRMAL Catalan and concur. If I am not able to access the right IJ, I will then attempt a left IJ approach. The pt has had an opportunity to ask and have questions answered. I will proceed today as noted. Chon Birch
[2018-08-03] MEDS: Cefazolin 2 GM in 0.9% Normal Saline 100 ML IV (16:45)
[2018-08-03] MEDS: Bupivacaine Mpf 0.5% 30 ML VIAL (17:40)
[2018-08-03] MEDS: Heparin 10,000 UNITS/10 ML Vial 10000 UNITS (17:45)
--- NOTE | 2018-08-03 17:51 | PCM.OPRPT ---
Problem List (1) Acute renal failure Status: Acute Report of Operation Date of Procedure: 08/03/18 Pre-Operative Diagnosis: Acute renal failure Post-Operative Diagnosis: Same Surgery/Procedure Performed:: Attempted right internal jugular tunneled dialysis catheter, successful left internal jugular 23 cm pre-curved palindrome catheter placement Description of Surgical Findings:: Timeout and informed consent was obtained. 63-year-old female sitting up in place by the table underwent monitored anesthesia care. Ancef 2 g given intravenous preoperatively. The right neck was sterilely prepped draped. Ultrasound was used to identify the right internal jugular vein. Micropuncture technique used after 1% lidocaine mixed 50-50 with 0.5% Marcaine was instilled. A total of 14 cc was used throughout the case. Micropuncture needle could get access the wire could be advanced the micropuncture sheath could be partially advanced but then it became very apparent that even using a micropuncture wire and a 035 J-wire and an 035 angled Glidewire that there appeared to be an occlusive process of the proximal right internal jugular. This point I elected simply to abort the procedure rather than pursue further contrast material with the patient with acute renal failure We reprepped and draped the left neck the patient had very deep respirations appeared to still be relatively dehydrated under ultrasound guidance local was instilled micropuncture needle inserted micropuncture wire inserted. Fluoroscopy demonstrated good positioning. Local still down upon the chest wall. The 23 cm pre-curved palindrome catheter was tunneled from the chest to the neck. Serial dilatation was performed after the micropuncture wire was exchanged out for an 035 J-wire. The tract was serially dilated generous fluoroscopy was used to help guide this approach from the left. In the sheath dilator was inserted under fluoroscopic control. The dilator and wire were removed the catheter advanced to the sheath the sheath was split the catheter was positioned there is good positional lie of the catheter it aspirated easily was flushed with saline and 2 cc per channel heparinized saline. The neck site was closed with interrupted 5-0 Vicryl subdermal stitch. Steri-Strips Telfa OpSite dressings applied. Silver impregnated dressing was applied to the catheter exit site. She was taken to the recovery area in satisfactory condition with no apparent complication stat portable chest x-ray is pending. Specimens none. Drains none. Blood loss 50 cc. Brian Birch M.D., F.A.C.S. Type of Anesthesia:: Local MAC Anesthesiologist: Pancho Weiner
--- NOTE | 2018-08-03 18:30 | RAD_ITS ---
STUDY: X-RAY CHEST REASON FOR EXAM: Female, 63 years old. Hemodialysis catheter placement. TECHNIQUE: Single frontal view of the chest. COMPARISON: July 28, 2018 FINDINGS: There is a new left-sided hemodialysis catheter in place with its tip within the expected region of the proximal superior vena cava. There is a right-sided PICC line in place terminating within the superior vena cava as well. There are stable prominent interstitial markings. There is cardiomegaly. Normal visualized pulmonary arteries. Normal visualized aortic arch and descending thoracic aorta. Normal visualized thoracic spine. Normal visualized ribs, clavicles, and shoulders. There is no demonstrated abnormality of the visualized soft tissue structures of the upper abdomen. RAD/CXR for Line Placement IMPRESSION: New left-sided hemodialysis catheter with its tip within the expected region of the proximal superior vena cava. Stable prominent interstitial markings, these may be chronic in nature however cannot exclude mild edema. Cardiomegaly. Electronically Signed: Sarah Veliz MD at 19:16 EDT Tel , Service support ,
[2018-08-03] MEDS: hydrALAZINE 25 MG Tablet PO (21:40)
[2018-08-03 22:35] LABS: Bedside Glucose 136 mg/dL (70-110)
[2018-08-04] VITALS (13 sets, daily range): BP systolic 128–164; BP diastolic 55–72; PULSE 74–87; RESP 17–18; TEMP 36.5–37; O2SAT 91–98; BMI 33.5
[2018-08-04] MEDS: 0.9% NaCl Peripheral Flush Adult/Peds IV ×2 (04:45→04:48)
[2018-08-04 04:59] LABS: Absolute Lymphocyte Count 0.75 X10^3/ul (0.83-4.51); Absolute Neutrophil Count 4.2 X10^3/uL (2.0-7.7); Basophil# 0.01 X10^3/uL; Basophil% 0.2 % (0-1); Eosinophils% 1.7 % (0-5); Hematocrit 32.8 % (37-47); Hemoglobin 10.1 g/dl (12.0-15.0); Lymphocyte # 0.75 X10^3/ul (4.0); Mean Corp Hgb Conc 30.8 g/gl (32-36); Mean Corpuscular Hgb 27.2 pg (27.0-32.0); Mean Corpuscular Volume 88.2 fL (81-99); Mean Platelet Vol. 10.2 fl (6.2-12.0); Monocyte# 0.72 X10^3/uL; Monocyte% 12.5 % (0-10); Neutrophil # 4.15 X10^3/uL (2.7-7.7); Neutrophil % 72.3 % (47-70); Platelet Count 178 K/mm3 (150-450); RBC Distribution Width CV 15.2 % (11.6-14.6); RBC Distribution Width SD 47.8 fl (35.1-43.9); Red Blood Count 3.72 M/mm3 (4.2-5.4); White Blood Count 5.8 K/mm3 (4.4-11.0)
[2018-08-04 05:01] LABS: POSITIVE COUNT NO; POSITIVE DIFFERENTIAL NO; POSITIVE MORPHOLOGY NO
[2018-08-04] MEDS: hydrALAZINE 25 MG Tablet PO ×2 (05:08→15:07)
[2018-08-04] MEDS: hydrALAZINE 50 MG Tablet PO ×2 (05:09→15:06)
[2018-08-04] MEDS: oxyCODONE 5 MG Tablet PO ×2 (05:09→12:28)
[2018-08-04 05:18] LABS: ALB/GLOB Ratio 0.9 RATIO (0.9-2.4); AST(SGOT) 47 U/L (15-37); Alanine Aminotransfer ALT/SGPT 258 U/L (13-56); Albumin, Serum 2.8 g/dL (3.2-5.0); Alkaline Phosphatase 146 U/L (45-117); Anion Gap 10 (5-15); BUN 31 mg/dL (7-18); BUN/Creat Ratio 5.4 RATIO (10-20); Bilirubin, Direct 0.37 mg/dL (0.00-0.30); Calcium,Total 8.2 mg/dL (8.5-10.1); Chloride 99 mmol/L (98-107); EST Glomerular Filtration Rate 8 mL/min (>60); Est Glom Filt Rate - Afr Amer 10 mL/min (>60); Estimated Creatinine Clearance 10.28 ml/min; Globulin 3.2 g/dL (2.2-4.2); Glucose 112 mg/dL (74-106); Phosphorus 5.8 mg/dL (2.5-4.9); Sodium Level 136 mmol/L (136-145)
[2018-08-04 07:01] LABS: Bedside Glucose 101 mg/dL (70-110)
[2018-08-04] MEDS: Aspirin 81 MG TAB.CHEW PO (08:21)
--- NOTE | 2018-08-04 09:21 | PN.RENAL_ITS ---
Patient Problems: Active and Suspected Problems Shock, unspecified (Acute) GI bleed (Acute) Acute liver failure (Acute) Coagulopathy (Acute) UTI (urinary tract infection) (Acute) Hepatic encephalopathy (Acute) Acute renal insufficiency (Acute) Acute renal failure (Acute) Subjective: Patient is eager to leave today. No nausea no vomiting No shortness of breath - Physical Exam General: Alert, Oriented x3 HEENT: Atraumatic Oral: Moist Mucosa Neck: Supple, No JVD Lungs: Clear to auscultation, Normal air movement, No rhonchi, No wheeze Cardiovascular: Regular rate, Regular Rhythm, Normal S1, Normal S2 Abdomen: Bowel Sounds Present, Soft, Non Tender Extremities: No clubbing, No cyanosis, No edema Skin: No rashes Musculoskeletal: No Tenderness to Palpation of Joints or Extremities Lymphatic: No Cervical, Supraclavicular, or Inguinal Adenopathy Neurological: Cranial nerves II-XII grossly intact, Neuro grossly intact Psych/Mental Status: Appropriate Vital Signs Temp Pulse Resp BP Pulse Ox 98 F 82 18 150/55 H 91 08/04/18 05:07 08/04/18 07:48 08/04/18 05:07 08/04/18 05:07 08/04/18 08:18 Oxygen Flow Rate (L/min) 1 Oxygen Delivery Method Room Air Weight: 104.9 kg Body Mass Index (BMI) 35.4 Finger Stick Blood Glucose 199 Intake and Output for Last 24 Hours 08/02/18 08/03/18 08/04/18 23:59 23:59 23:59 Intake Total 450 / 450 1209 / 1209 240 / 240 Output Total 3000 / 3000 Balance -2550 / -2550 1209 / 1209 240 / 240 Microbiology Past 72 Hours 07/27/18 10:30 Blood Culture - Final Blood Culture (Wb) - Other No growth in 5 days. 07/27/18 12:00 Blood Culture - Final Blood Culture (Wb) - Other No growth in 5 days. Laboratory Tests Past 24 Hrs 07/29/18 08/04/18 08/04/18 20:15 04:50 04:50 WBC 5.8 RBC 3.72 L Hgb 10.1 L Hct 32.8 L MCV 88.2 MCH 27.2 MCHC 30.8 L RDW 15.2 H RDW Differential 47.8 H Plt Count 178 MPV 10.2 Immature Gran % (Auto) 0.300 Neut % (Auto) 72.3 H Lymph % (Auto) 13.0 L [place] % (Auto) 12.5 H Eos % (Auto) 1.7 Baso % (Auto) 0.2 Absolute Neuts (auto) 4.2 Absolute Lymphs (auto) 0.75 L Total Counted Not Reportable Sodium 136 Potassium 4.0 Chloride 99 Carbon Dioxide 27.0 Anion Gap 10 BUN 31 H Creatinine 5.70 H Estim Creat Clear Calc 10.28 Est GFR (MDRD) Af Amer 10 L Est GFR (MDRD) Non-Af 8 L BUN/Creatinine Ratio 5.4 L Glucose 112 H Calcium 8.2 L Phosphorus 5.8 H Total Bilirubin 0.70 Direct Bilirubin 0.37 H AST 47 H ALT 258 H Alkaline Phosphatase 146 H Total Protein 6.0 L Albumin 2.8 L Globulin 3.2 Albumin/Globulin Ratio 0.9 c-ANCA Antibody <1:20 Atypical p-ANCA <1:20 p-ANCA Antibody <1:20 Glomerular Base Memb Ab 4 Complement C3 48 L Complement C4 6 L POC Glucose 08/04/18 08/03/18 08/03/18 06:52 21:37 11:52 POC Glucose 101 136 H 124 H Medical Necessity - Tobacco Use Smoking Status: Current every day smoker Tobacco Use: Cigarettes Assessment/Plan All Active Problems Frequent falls (Acute) Shock, unspecified (Acute) GI bleed (Acute) Acute liver failure (Acute) Coagulopathy (Acute) UTI (urinary tract infection) (Acute) Hepatic encephalopathy (Acute) Acute renal insufficiency (Acute) Acute renal failure (Acute) Lightheadedness (Acute) Unsteady gait (Acute) Headache (Acute) Chest pain (Acute) Weakness of both arms (Resolved) Numbness and tingling of right face (Resolved) Difficulty speaking (Resolved) NSTEMI (non-ST elevated myocardial infarction) (Resolved) Jaw pain (Resolved) 1-Acute kidney injury . Initially thought is from hepatorenal syndrome.UA showed protein 100, WBC 25-50 RBC 12 25. C3/C4 level are very low. C4<<C3 , this might be seen in Lupus nephritis Vs subacute endocarditis. pt has had negative BC. RANDY is negative, ANCA level wnl limits. DS DNA is pending Pt is set up in Dr. Gonzalez HD unit for dialysis MWF. I discussed with him that patient might need kidney Bx if kidney function does not recover Currently the patient hemodialysis dependent for fluid and metabolic support. Hemodialysis started on July 28. No recovery of kidney function. Patient remains oliguric. HD access was changed to left IJ TC Will arrange for HD session today for 4 hours , BQ 400 DQ 700 3K dialysate and 3L UF Avoid NSAIDs/BYRON or ARB. I will continue to monitor for kidney function recovery. 2-hyperkalemia: Resolved with hemodialysis. 3-Acute liver injury. Possible from medication. LFTs trend is improving. 4-non-ST [place]. Cardiology service is following. No plan for cardiac cath for now. Medical treatment as per the cardiology service Renal team will continue to follow. Please call with any question at [phone] Plan of care was discussed with Dr. Nohemi Jordan MD
--- NOTE | 2018-08-04 09:51 | CASEMGMT ---
REE faxed updated therapy notes to [facility] as insurance was asking for them. Brigette GASCA MSW
[2018-08-04] MEDS: Pantoprazole Sodium 40 MG Tablet PO (09:59)
[2018-08-04] MEDS: Clopidogrel Bisulfate 75 MG Tablet PO (09:59)
--- NOTE | 2018-08-04 10:35 | PCM.TXEXTCAR ---
- Diet 08/03/18 19:42 Diet: Renal: 60 gm protein Is pt able to select menu?: No - Routine Orders/Code Status Enema Type: Fleetz Enema Frequency: Daily PRN Suppository Type: Dulcolax 10mg Suppository Frequency: Daily PRN O2 Frequency: PRN Keep PO Greater than or Equal to (%): 90 Routine Lab Work: - - complete metabolic panel to assess liver profile - Wound(s) Mid abdominal fold Wound Type: Excoriation RFA Wound Type: Abrasion R Chest Wound Type: Surgical Incision LT FA Wound Type: Abrasion LT CHEST Wound Type: Surgical Incision - Therapies Weight Bearing: Weight bearing as tolerated Physical Therapy: Eval and Treat Occupational Therapy: Eval and Treat - Allergies/Procedures Done in Hospital Allergies/Adverse Reactions: Allergies duloxetine HCl [From Cymbalta] Adverse Reaction (Verified 07/25/18 09:39) Other morphine Adverse Reaction (Verified 07/25/18 09:39) Itching pramipexole di-HCl [From Mirapex] Adverse Reaction (Verified 07/25/18 09:39) Other Sulfa (Sulfonamide Antibiotics) Adverse Reaction (Verified 07/25/18 09:39) Unknown tramadol HCl [From Ultram] Adverse Reaction (Verified 07/25/18 09:39) Itching varenicline [From Chantix] Adverse Reaction (Verified 07/25/18 09:39) Unknown Procedures: 2-D Echocardiogram, Colonoscopy, EGD, - - Tunneled catheter placement - Type of Care/Length of Stay Estimated LOS: More Than 30 Days Type of Care Needed: Skilled Rehab Potential: Fair Prognosis: Fair - Additional Orders/Day of Discharge Additional Orders: to have dialysis as per nephrology schedule; will likely need kidney biopsy per follow up with nephrology. To follow up with cardiology for decision about further workup for NSTEMI to be made. TO stop rosuvastatin if liver enzymes trend up again Day of Discharge: 08/04/18 - Dietary and Speech Recommendations Dietitian Recommendations/Changes: Adv diet as tolearted to renal. If dialysis to continue long-term, rec diet change to cardiac/low cholesterol, low sodium w/ fluid restriction as protein restriction not indicated long-term w/ diaylsis treatments. - Follow Up Care Primary Care Physician: Crystal Earl MD [Primary Care Provider] - Please follow up with your Primary Care Physician in: one week Please Follow Up With: Quinn Sun MD When: 1-2 weeks Please Follow Up With: Henresto Gonzalez MD When: 1-2 weeks
--- NOTE | 2018-08-04 12:16 | PCM.PN.SRG ---
Patient Problems: Active and Suspected Problems Shock, unspecified (Acute) GI bleed (Acute) Acute liver failure (Acute) Coagulopathy (Acute) UTI (urinary tract infection) (Acute) Hepatic encephalopathy (Acute) Acute renal insufficiency (Acute) Acute renal failure (Acute) Subjective: no further bleeding complaints - Physical Exam Abdomen: Bowel Sounds Present, Soft, Non Tender Vital Signs Temp Pulse Resp BP Pulse Ox 98.4 F 87 17 161/72 H 98 08/04/18 09:54 08/04/18 11:27 08/04/18 09:54 08/04/18 09:54 08/04/18 09:54 Oxygen Flow Rate (L/min) 1 Oxygen Delivery Method Room Air Weight: 104.9 kg Body Mass Index (BMI) 35.4 Finger Stick Blood Glucose 199 Intake and Output for Last 24 Hours 08/02/18 08/03/18 08/04/18 23:59 23:59 23:59 Intake Total 450 / 450 1209 / 1209 240 / 240 Output Total 3000 / 3000 Balance -2550 / -2550 1209 / 1209 240 / 240 Microbiology Past 72 Hours 07/27/18 10:30 Blood Culture - Final Blood Culture (Wb) - Other No growth in 5 days. 07/27/18 12:00 Blood Culture - Final Blood Culture (Wb) - Other No growth in 5 days. Laboratory Tests Past 24 Hrs 07/29/18 08/04/18 08/04/18 20:15 04:50 04:50 WBC 5.8 RBC 3.72 L Hgb 10.1 L Hct 32.8 L MCV 88.2 MCH 27.2 MCHC 30.8 L RDW 15.2 H RDW Differential 47.8 H Plt Count 178 MPV 10.2 Immature Gran % (Auto) 0.300 Neut % (Auto) 72.3 H Lymph % (Auto) 13.0 L [place] % (Auto) 12.5 H Eos % (Auto) 1.7 Baso % (Auto) 0.2 Absolute Neuts (auto) 4.2 Absolute Lymphs (auto) 0.75 L Total Counted Not Reportable Sodium 136 Potassium 4.0 Chloride 99 Carbon Dioxide 27.0 Anion Gap 10 BUN 31 H Creatinine 5.70 H Estim Creat Clear Calc 10.28 Est GFR (MDRD) Af Amer 10 L Est GFR (MDRD) Non-Af 8 L BUN/Creatinine Ratio 5.4 L Glucose 112 H Calcium 8.2 L Phosphorus 5.8 H Total Bilirubin 0.70 Direct Bilirubin 0.37 H AST 47 H ALT 258 H Alkaline Phosphatase 146 H Total Protein 6.0 L Albumin 2.8 L Globulin 3.2 Albumin/Globulin Ratio 0.9 c-ANCA Antibody <1:20 Atypical p-ANCA <1:20 p-ANCA Antibody <1:20 Glomerular Base Memb Ab 4 Complement C3 48 L Complement C4 6 L POC Glucose 08/04/18 08/03/18 06:52 21:37 POC Glucose 101 136 H Medical Necessity - Tobacco Use Smoking Status: Current every day smoker Tobacco Use: Cigarettes Assessment/Plan All Active Problems Frequent falls (Acute) Shock, unspecified (Acute) GI bleed (Acute) Acute liver failure (Acute) Coagulopathy (Acute) UTI (urinary tract infection) (Acute) Hepatic encephalopathy (Acute) Acute renal insufficiency (Acute) Acute renal failure (Acute) Lightheadedness (Acute) Unsteady gait (Acute) Headache (Acute) Chest pain (Acute) Weakness of both arms (Resolved) Numbness and tingling of right face (Resolved) Difficulty speaking (Resolved) NSTEMI (non-ST elevated myocardial infarction) (Resolved) Jaw pain (Resolved) acute liver injury-likely secondary to alcohol abuse and steatohepatitis, lower GI bleeding, Electrolyte abnormalities, dehydration, hypotension The patient is currently on the floor. she has stable She has a central catheter placed. Vitals are stable her liver transaminases now normalizing with relatively normal bilirubin and alkaline phosphatase. CT scan of the abdomen with contrast demonstrated no portal vein thrombosis or hepatic vein thrombosis. Etiology is likely a combination of alcoholic hepatitis and steatohepatitis. liver enzymes are normalizing Patient remains anuric. hepatorenal syndrome? Ongoing dialysis. 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 Hemoglobin stable-no further GI bleeding noted- Discussed with Dr. Sun - he feels patient is currently medically stable. As anticoagulation is a consideration given her cardiac status he would be most pleased if we could perform upper and lower endoscopy prior to starting anticoagulation and feels that her cardiac risk is low. We will therefore plan for bowel prep today and plan for upper and lower endoscopy tomorrow. Upper endoscopy Tuesday - no worrisome findings. Colonoscopy Tuesday failed due to poor prep. repeat colonoscopy - No abnormalities. I am comfortable with any anticoagulants felt necessary by cardiology
--- NOTE | 2018-08-04 13:08 | CASEMGMT ---
Received insurance approval for patient to go to [place] [facility]. REE notified physician. Faxed orders to [facility]. Completed convalescent on HENS. Patient is on dialysis and won't be able to go until 330. REE called [facility] - [place], [place] and arranged for patient to get picked up at 330 via cot. REE notified patient. SW asked if she would like SW to notify her significant other. She said she would like SW to notify him of plan. REE called patient's significant other and left a message letting him know that patient is headed to [place] today around 330p for short term rehab. REE left SW's phone number in the event he had questions. REE also notified RN, department secretary, and [facility]. Plan: d/c to [place] under skilled level of care on a convalescent stay. [facility] [place], [place] will transport patient via cot at 330p. Brigette BAKER
[2018-08-04] MEDS: Heparin 10,000 UNITS/10 ML Vial IV (14:03)
[2018-08-04 14:55] LABS: Bedside Glucose 119 mg/dL (70-110)
[2018-08-04] MEDS: Nystatin Powder 15gm Bottle 1 APPLIC TOPICAL (15:07)
--- NOTE | 2018-08-04 15:12 | DIALYSIS ---
Hemodialysis x 4 hours completed, -3000ml off today. Stable t/o tx. Tolerated well. CVC locked with heparin to each lumen fill volume. Dressing was changed/CHG dressing applied today. Report was given to Liat PLUNKETT at bedside
--- NOTE | 2018-08-04 16:26 | PCM.DC.SUM ---
Discharge Date and Diagnosis Date of Admission: 07/27/18 Date of Discharge: 08/04/18 - Primary Discharge Diagnosis acute liver injury-medication induced GEORGE on CKD 3 hyponatremia nad hypokalemia lower GI bleed NSTEMI thrombocytopenia coagulopathy - Secondary Discharge Diagnosis Chronic Problems Cardiomyopathy (Chronic) HTN (hypertension) (Chronic) Tobacco use disorder (Chronic) Esophageal reflux (Chronic) Depressive disorder (Chronic) Back ache (Chronic) Irritable bowel syndrome (IBS) (Chronic) Anxiety disorder (Chronic) Hospital Course and Treatment Imaging Results: Diagnostic Data Brain CT 07/27/18 09:54 IMPRESSION: Chronic involutional changes of the brain. Electronically Signed: Doug Brown, at 11:41 EDT , Service support , Abdomen Ultrasound 07/27/18 14:45 IMPRESSION: Enlarged fatty liver. Mild pericholecystic fluid. Electronically Signed: Josse Montenegro DO at 23:53 EDT Tel [phone], Service support , Abdomen CT 07/28/18 09:54 IMPRESSION: Small right pleural effusion with underlying infiltration and/or atelectasis. The portal vein as well as the hepatic veins are patent. Electronically Signed: Doug Brown, at 13:42 EDT , Service support , Chest X-Ray 08/03/18 18:30 IMPRESSION: New left-sided hemodialysis catheter with its tip within the expected region of the proximal superior vena cava. Stable prominent interstitial markings, these may be chronic in nature however cannot exclude mild edema. Cardiomegaly. Electronically Signed: Sarah Veliz MD at 19:16 EDT Tel , Service support , night supervisor- Dr Hollis Genral surgery- dr Garcia, Dr Birch Nephrollgy- Dr Gonzalez cardiology- Dr Sun Operations: None Procedures: 2-D Echocardiogram, Dialysis, - - tunneled dialysis catheter insertion Summary of Care Provided: The patient is a 63 year old F with an extensive past medical history as listed. She was admitted through the ED on 07/27/2018 with a complaint of generalized weakness, abdominal pain and rectal bleeding. Rectal bleeding had been going on for about 12 days and she had been scheduled to have lower endoscopy by Dr. Galindo on outpatient basis. In the ED, she was hemodynamically stable and was afebrile. Labs showed sodium of 133 with potassium of 6.3 and a creatinine of 2.94 with a normal baseline. Lactic acid was elevated at 4.5 and total bilirubin was up at 2.3. AST was 10,059 with an ALT of 4541. ALP was also increased to 150 and his troponin was 0.504. UA was positive for UTI and alcohol level was noted to be 11. His head CT showed no acute changes. She had a central line catheter placed in the ED and she was started on hydration with IV fluids. She was also started on IV Zosyn for UTI. She was admitted to the ICU and was managed for acute liver injury with coagulopathy, AK on CKD and hyperkalemia as well as lower GI bleed. She was also managed for N STEMI as troponins trended up as well as acute metabolic encephalopathy likely due to acute liver injury. General surgery was consulted and cardiology was also consulted. All her hepatotoxic medications including statins, Tylenol and narcotics were held. She was hydrated with IV fluids. Liver enzymes and INR gradually trended down and normalized. Cardiology was consulted but preferred medical management for now in light of her acute condition and preferred to workup further on outpatient basis. Kidney function gradually worsened and she ended up needing dialysis. She had EGD which was essentially normal and she had a colonoscopy with unsatisfactory prep and was told in the rectum and so no specimens were collected. She had a repeat colonoscopy again which was normal. Echo showed EF of 45% with moderate global hypokinesis and RVSP of 71 mmHg. Abdominal ultrasound showed enlarged fatty liver with mild pericholecystic fluid. Stay was further complicated by thrombocytopenia with platelets at 220 on admission and gradually trending down to a luis of 111. This was likely due to coagulopathy from liver injury. Patient had a dialysis catheter inserted for long-term dialysis as kidney function did not improve. Of note, immunology done per nephrology showed a very low C3 and C4. Patient will therefore need to follow-up with nephrology as she will likely need a kidney biopsy to diagnose cause of AK I. Patient was discharged to her [facility] on 08/04/2018 and is follow-up with her primary care doctor, cardiology and nephrology as well as general surgery. In light of her non-STEMI, her rosuvastatin was resumed and she is to have regular liver function tests to assess liver function and to stop Crestor if liver enzymes trend up. She is to have regular dialysis sessions 3 times a week as per nephrology. Nephrology was set up the days. Patient seen and examined prior to discharge. She had no complaints and felt well. Review of systems was otherwise negative. Labs and vitals reviewed. Home medications reviewed and reconciled. o/e Vital Signs Height 5 ft 9 in Weight: 231 lb 4.238 oz Weight in Pounds 231.3 lbs Pulse Ox 98 Temperature 97.7 F Pulse Rate 74 Respiratory Rate 18 Blood Pressure [BP] 147/57 Blood Pressure 161/72 Blood Pressure Position [BP] Semi-Fowlers Blood Pressure Position Semi-Fowlers General: Alert, Oriented x3, Cooperative, HEENT: Atraumatic, PERRLA, EOMI, Normocephalic Oral: Dry Mucosa Neck: Supple, No JVD, Negative Carotid Bruits Lungs: - - diminished breath sounds bibasally, no wheezes or crackles. Cardiovascular: Regular rate, Regular Rhythm, Normal S1, Normal S2, No murmurs Abdomen: Bowel Sounds Present, Soft, Non Tender, Non-Distended, No Hepato-splenomegaly Extremities: No clubbing, No cyanosis, No edema, Capillary Refill Less than 3 Seconds Skin: No rashes, No breakdown Musculoskeletal: No Tenderness to Palpation of Joints or Extremities Lymphatic: No Cervical, Supraclavicular, or Inguinal Adenopathy Neurological: Cranial nerves II-XII grossly intact, Neuro grossly intact, Motor Exam 5/5 strength throughout Psych/Mental Status: Normal Affect, Appropriate, Alert and oriented to time, place, person, mood and affect OARRS was checked and showed no red flags, with NARX score of 461 and overdose risk of 210. She was given a script of PO oxycodone 5-10mg q6prn x 20 pills. She is to follow up with her PCP for further management. She was discharged on p.o. aspirin and Plavix. - Physical Exam Vital Signs Temp Pulse Resp BP Pulse Ox 97.7 F L 74 18 161/72 H 98 08/04/18 14:25 08/04/18 15:07 08/04/18 14:25 08/04/18 15:07 08/04/18 09:54 Oxygen Flow Rate (L/min) 1 Oxygen Delivery Method Room Air Weight: 231 lb 4.238 oz Body Mass Index (BMI) 35.4 Finger Stick Blood Glucose 199 Intake and Output for Last 24 Hours 08/02/18 08/03/18 08/04/18 23:59 23:59 23:59 Intake Total 450 / 450 1209 / 1209 240 / 240 Output Total 3000 / 3000 3000 / 3000 Balance -2550 / -2550 1209 / 1209 -2760 / -2760 Microbiology Past 72 Hours 07/27/18 10:30 Blood Culture - Final Blood Culture (Wb) - Other No growth in 5 days. 07/27/18 12:00 Blood Culture - Final Blood Culture (Wb) - Other No growth in 5 days. Laboratory Tests Past 24 Hrs 08/04/18 08/04/18 04:50 04:50 WBC 5.8 RBC 3.72 L Hgb 10.1 L Hct 32.8 L MCV 88.2 MCH 27.2 MCHC 30.8 L RDW 15.2 H RDW Differential 47.8 H Plt Count 178 MPV 10.2 Immature Gran % (Auto) 0.300 Neut % (Auto) 72.3 H Lymph % (Auto) 13.0 L [place] % (Auto) 12.5 H Eos % (Auto) 1.7 Baso % (Auto) 0.2 Absolute Neuts (auto) 4.2 Absolute Lymphs (auto) 0.75 L Total Counted Not Reportable Sodium 136 Potassium 4.0 Chloride 99 Carbon Dioxide 27.0 Anion Gap 10 BUN 31 H Creatinine 5.70 H Estim Creat Clear Calc 10.28 Est GFR (MDRD) Af Amer 10 L Est GFR (MDRD) Non-Af 8 L BUN/Creatinine Ratio 5.4 L Glucose 112 H Calcium 8.2 L Phosphorus 5.8 H Total Bilirubin 0.70 Direct Bilirubin 0.37 H AST 47 H ALT 258 H Alkaline Phosphatase 146 H Total Protein 6.0 L Albumin 2.8 L Globulin 3.2 Albumin/Globulin Ratio 0.9 POC Glucose 08/04/18 08/04/18 08/03/18 14:49 06:52 21:37 POC Glucose 119 H 101 136 H Discharge Diet: Low fat/ Low Cholesterol May resume sexual activity in: No Restrictions Weight Bearing Status: Weight bearing as tolerated Call your doctor if you observe: Fever of 101 or Higher, Shortness of breath, Dizziness, Swelling in the ankles, Chest pain Home Medications: Medications to take at Discharge Nitroglycerin [Nitrostat] 0.4 mg SL PRN PRN 08/20/13 Oxycodone [Oxyir] 10 mg PO Q6H PRN PRN #40 tablet 09/05/13 Clonazepam [Klonopin] 0.5 mg PO QHS 08/14/15 Clopidogrel Bisulfate [Plavix] 75 mg PO DAILY 08/14/15 Metoprolol Tartrate [Lopressor (beta denis)] 25 mg PO BID 08/14/15 Aspirin [Aspirin, Baby] 81 mg PO DAILY@0800 09/08/17 Dicyclomine HCl [Bentyl] 10 mg PO ACHS 09/08/17 Omeprazole 40 mg PO BID 09/08/17 Triamcinolone 0.025% Cream [Kenalog] 1 applic TOPICAL BID PRN 09/08/17 Amlodipine [Norvasc] 5 mg PO DAILY #60 tab 09/09/17 Nystatin Powder [Mycostatin Powder] 1 applic TOPICAL 4X/DAY 07/16/18 Polyethylene Glycol 3350 [Miralax] 17 gm PO DAILY 07/16/18 Rosuvastatin Calcium [Crestor] 10 mg PO QHS 07/16/18 Albuterol Inhaler [Ventolin Hfa] 2 puff INHALATION Q4H PRN PRN 07/27/18 Mupirocin [Bactroban] 1 applic TOPICAL TID 07/27/18 Sertraline HCl [Zoloft] 50 mg PO DAILY 07/27/18 busPIRone [Buspar] 15 mg PO BID 07/27/18 Oxycodone [Oxyir] 5 - 10 mg PO Q6H PRN PRN #20 tab 08/04/18 Following Prescrptions Were Given to Patient: Oxycodone [Oxyir] 5 - 10 mg PO Q6H PRN PRN #20 tab PRN Reason: Severe Pain (6-10/10) Primary Care Physician: Crystal Earl MD [Primary Care Provider] - Please follow up with your Primary Care Physician in: one week Please Follow Up With: Quinn Sun MD When: 1-2 weeks Please Follow Up With: Hernesto Gonzalez MD When: 1-2 weeks Disposition: [facility]-Way facility Minutes spent on discharge:: 50 Patient Condition:: Stable Medical Necessity - Tobacco Use Smoking Status: Current every day smoker Tobacco Use: Cigarettes Meaningful Use Info Meaningful Use Diagnoses (Choose all that apply): AMI - AMI Aspirin given w/in 24hrs of arrival?: Yes ASA at discharge?: Yes Statins at discharge?: Yes Christo/ARB at discharge?: No Reason Christo/ARB not ordered:: Worsening renal dysfunctn, Hyperkalemia Beta Denis at discharge?: Yes Done w/ Acute [place] measure.: Yes Code Visit Inpatient E&M: 91367 Disch Hosp
--- NOTE | 2018-08-04 16:44 | DS.PCM_ITS ---
Discharge Date and Diagnosis Date of Admission: 07/27/18 Date of Discharge: 08/04/18 - Primary Discharge Diagnosis acute liver injury-medication induced GEORGE on CKD 3 hyponatremia nad hypokalemia lower GI bleed NSTEMI thrombocytopenia coagulopathy - Secondary Discharge Diagnosis Chronic Problems Cardiomyopathy (Chronic) HTN (hypertension) (Chronic) Tobacco use disorder (Chronic) Esophageal reflux (Chronic) Depressive disorder (Chronic) Back ache (Chronic) Irritable bowel syndrome (IBS) (Chronic) Anxiety disorder (Chronic) Hospital Course and Treatment Imaging Results: Diagnostic Data Brain CT 07/27/18 09:54 IMPRESSION: Chronic involutional changes of the brain. Electronically Signed: Doug Brown, at 11:41 EDT , Service support , Abdomen Ultrasound 07/27/18 14:45 IMPRESSION: Enlarged fatty liver. Mild pericholecystic fluid. Electronically Signed: Josse Montenegro DO at 23:53 EDT Tel [phone], Service support , Abdomen CT 07/28/18 09:54 IMPRESSION: Small right pleural effusion with underlying infiltration and/or atelectasis. The portal vein as well as the hepatic veins are patent. Electronically Signed: Doug Brown, at 13:42 EDT , Service support , Chest X-Ray 08/03/18 18:30 IMPRESSION: New left-sided hemodialysis catheter with its tip within the expected region of the proximal superior vena cava. Stable prominent interstitial markings, these may be chronic in nature however cannot exclude mild edema. Cardiomegaly. Electronically Signed: Sarah Veliz MD at 19:16 EDT Tel , Service support , gunstock spray unit feeder- Dr Hollis Genral surgery- dr Garcia, Dr Birch Nephrollgy- Dr Gonzalez cardiology- Dr Sun Operations: None Procedures: 2-D Echocardiogram, Dialysis, - - tunneled dialysis catheter insertion Summary of Care Provided: The patient is a 63 year old F with an extensive past medical history as listed. She was admitted through the ED on 07/27/2018 with a complaint of generalized weakness, abdominal pain and rectal bleeding. Rectal bleeding had been going on for about 12 days and she had been scheduled to have lower endoscopy by Dr. Galindo on outpatient basis. In the ED, she was hemodynamically stable and was afebrile. Labs showed sodium of 133 with potassium of 6.3 and a creatinine of 2.94 with a normal baseline. Lactic acid was elevated at 4.5 and total bilirubin was up at 2.3. AST was 10,059 with an ALT of 4541. ALP was also increased to 150 and his troponin was 0.504. UA was positive for UTI and alcohol level was noted to be 11. His head CT showed no acute changes. She had a central line catheter placed in the ED and she was started on hydration with IV fluids. She was also started on IV Zosyn for UTI. She was admitted to the ICU and was managed for acute liver injury with coagulopathy, AK on CKD and hyperkalemia as well as lower GI bleed. She was also managed for N STEMI as troponins trended up as well as acute metabolic encephalopathy likely due to acute liver injury. General surgery was consulted and cardiology was also consulted. All her hepatotoxic medications including statins, Tylenol and narcotics were held. She was hydrated with IV fluids. Liver enzymes and INR gradually trended down and normalized. Cardiology was consulted but preferred medical management for now in light of her acute condition and preferred to workup further on outpatient basis. Kidney function gradually worsened and she ended up needing dialysis. She had EGD which was essentially normal and she had a colonoscopy with unsatisfactory prep and was told in the rectum and so no specimens were collected. She had a repeat colonoscopy again which was normal. Echo showed EF of 45% with moderate global hypokinesis and RVSP of 71 mmHg. Abdominal ultrasound showed enlarged fatty liver with mild pericholecystic fluid. Stay was further complicated by thrombocytopenia with platelets at 220 on admission and gradually trending down to a luis of 111. This was likely due to coagulopathy from liver injury. Patient had a dialysis catheter inserted for long-term dialysis as kidney function did not improve. Of note, immunology done per nephrology showed a very low C3 and C4. Patient will therefore need to follow-up with nephrology as she will likely need a kidney biopsy to diagnose cause of AK I. Patient was discharged to her intermediate on 08/04/2018 and is follow-up with her primary care doctor, cardiology and nephrology as well as general surgery. In light of her non-STEMI, her rosuvastatin was resumed and she is to have regular liver function tests to assess liver function and to stop Crestor if liver enzymes trend up. She is to have regular dialysis sessions 3 times a week as per nephrology. Nephrology was set up the days. Patient seen and examined prior to discharge. She had no complaints and felt well. Review of systems was otherwise negative. Labs and vitals reviewed. Home medications reviewed and reconciled. o/e Vital Signs Height 5 ft 9 in Weight: 231 lb 4.238 oz Weight in Pounds 231.3 lbs Pulse Ox 98 Temperature 97.7 F Pulse Rate 74 Respiratory Rate 18 Blood Pressure [BP] 147/57 Blood Pressure 161/72 Blood Pressure Position [BP] Semi-Fowlers Blood Pressure Position Semi-Fowlers General: Alert, Oriented x3, Cooperative, HEENT: Atraumatic, PERRLA, EOMI, Normocephalic Oral: Dry Mucosa Neck: Supple, No JVD, Negative Carotid Bruits Lungs: - - diminished breath sounds bibasally, no wheezes or crackles. Cardiovascular: Regular rate, Regular Rhythm, Normal S1, Normal S2, No murmurs Abdomen: Bowel Sounds Present, Soft, Non Tender, Non-Distended, No Hepato- splenomegaly Extremities: No clubbing, No cyanosis, No edema, Capillary Refill Less than 3 Seconds Skin: No rashes, No breakdown Musculoskeletal: No Tenderness to Palpation of Joints or Extremities Lymphatic: No Cervical, Supraclavicular, or Inguinal Adenopathy Neurological: Cranial nerves II-XII grossly intact, Neuro grossly intact, Motor Exam 5/5 strength throughout Psych/Mental Status: Normal Affect, Appropriate, Alert and oriented to time, place, person, mood and affect OARRS was checked and showed no red flags, with NARX score of 461 and overdose risk of 210. She was given a script of PO oxycodone 5-10mg q6prn x 20 pills. She is to follow up with her PCP for further management. She was discharged on p.o. aspirin and Plavix. - Physical Exam Vital Signs Temp Pulse Resp BP Pulse Ox 97.7 F L 74 18 161/72 H 98 08/04/18 14:25 08/04/18 15:07 08/04/18 14:25 08/04/18 15:07 08/04/18 09:54 Oxygen Flow Rate (L/min) 1 Oxygen Delivery Method Room Air Weight: 231 lb 4.238 oz Body Mass Index (BMI) 35.4 Finger Stick Blood Glucose 199 Intake and Output for Last 24 Hours 08/02/18 08/03/18 08/04/18 23:59 23:59 23:59 Intake Total 450 / 450 1209 / 1209 240 / 240 Output Total 3000 / 3000 3000 / 3000 Balance -2550 / -2550 1209 / 1209 -2760 / -2760 Microbiology Past 72 Hours 07/27/18 10:30 Blood Culture - Final Blood Culture (Wb) - Other No growth in 5 days. 07/27/18 12:00 Blood Culture - Final Blood Culture (Wb) - Other No growth in 5 days. Laboratory Tests Past 24 Hrs 08/04/18 08/04/18 04:50 04:50 WBC 5.8 RBC 3.72 L Hgb 10.1 L Hct 32.8 L MCV 88.2 MCH 27.2 MCHC 30.8 L RDW 15.2 H RDW Differential 47.8 H Plt Count 178 MPV 10.2 Immature Gran % (Auto) 0.300 Neut % (Auto) 72.3 H Lymph % (Auto) 13.0 L [place] % (Auto) 12.5 H Eos % (Auto) 1.7 Baso % (Auto) 0.2 Absolute Neuts (auto) 4.2 Absolute Lymphs (auto) 0.75 L Total Counted Not Reportable Sodium 136 Potassium 4.0 Chloride 99 Carbon Dioxide 27.0 Anion Gap 10 BUN 31 H Creatinine 5.70 H Estim Creat Clear Calc 10.28 Est GFR (MDRD) Af Amer 10 L Est GFR (MDRD) Non-Af 8 L BUN/Creatinine Ratio 5.4 L Glucose 112 H Calcium 8.2 L Phosphorus 5.8 H Total Bilirubin 0.70 Direct Bilirubin 0.37 H AST 47 H ALT 258 H Alkaline Phosphatase 146 H Total Protein 6.0 L Albumin 2.8 L Globulin 3.2 Albumin/Globulin Ratio 0.9 POC Glucose 08/04/18 08/04/18 08/03/18 14:49 06:52 21:37 POC Glucose 119 H 101 136 H Discharge Diet: Low fat/ Low Cholesterol May resume sexual activity in: No Restrictions Weight Bearing Status: Weight bearing as tolerated Call your doctor if you observe: Fever of 101 or Higher, Shortness of breath, Dizziness, Swelling in the ankles, Chest pain Home Medications: Medications to take at Discharge Nitroglycerin [Nitrostat] 0.4 mg SL PRN PRN 08/20/13 Oxycodone [Oxyir] 10 mg PO Q6H PRN PRN #40 tablet 09/05/13 Clonazepam [Klonopin] 0.5 mg PO QHS 08/14/15 Clopidogrel Bisulfate [Plavix] 75 mg PO DAILY 08/14/15 Metoprolol Tartrate [Lopressor (beta denis)] 25 mg PO BID 08/14/15 Aspirin [Aspirin, Baby] 81 mg PO DAILY@0800 09/08/17 Dicyclomine HCl [Bentyl] 10 mg PO ACHS 09/08/17 Omeprazole 40 mg PO BID 09/08/17 Triamcinolone 0.025% Cream [Kenalog] 1 applic TOPICAL BID PRN 09/08/17 Amlodipine [Norvasc] 5 mg PO DAILY #60 tab 09/09/17 Nystatin Powder [Mycostatin Powder] 1 applic TOPICAL 4X/DAY 07/16/18 Polyethylene Glycol 3350 [Miralax] 17 gm PO DAILY 07/16/18 Rosuvastatin Calcium [Crestor] 10 mg PO QHS 07/16/18 Albuterol Inhaler [Ventolin Hfa] 2 puff INHALATION Q4H PRN PRN 07/27/18 Mupirocin [Bactroban] 1 applic TOPICAL TID 07/27/18 Sertraline HCl [Zoloft] 50 mg PO DAILY 07/27/18 busPIRone [Buspar] 15 mg PO BID 07/27/18 Oxycodone [Oxyir] 5 - 10 mg PO Q6H PRN PRN #20 tab 08/04/18 Following Prescrptions Were Given to Patient: Oxycodone [Oxyir] 5 - 10 mg PO Q6H PRN PRN #20 tab PRN Reason: Severe Pain (6-10/10) Primary Care Physician: Crystal Earl MD [Primary Care Provider] - Please follow up with your Primary Care Physician in: one week Please Follow Up With: Quinn Sun MD When: 1-2 weeks Please Follow Up With: Hernesto Gonzalez MD When: 1-2 weeks Disposition: [facility] facility Minutes spent on discharge:: 50 Patient Condition:: Stable Medical Necessity - Tobacco Use Smoking Status: Current every day smoker Tobacco Use: Cigarettes Meaningful Use Info Meaningful Use Diagnoses (Choose all that apply): AMI - AMI Aspirin given w/in 24hrs of arrival?: Yes ASA at discharge?: Yes Statins at discharge?: Yes Christo/ARB at discharge?: No Reason Christo/ARB not ordered:: Worsening renal dysfunctn, Hyperkalemia Beta Denis at discharge?: Yes Done w/ Acute [place] measure.: Yes Code Visit Inpatient E&M: [id number] Disch Hosp
--- NOTE | 2018-08-04 16:53 | NURSING ---
report called to rico Lazo
== END 2018-08-04 16:12 | disposition skilled nursing facility (03) ==
LOC: ED 12:46 → ICU 07-28 07:37 → PCU 07-29 16:31
PROVIDERS: Internal Medicine Critical Care Medicine; Internal Medicine Nephrology; Surgery; Admitting Provider Internal Medicine; Emergency Provider Emergency Medicine; Family Provider Internal Medicine; PCP Internal Medicine; Referring Provider Internal Medicine; Visit Provider Student in an Organized Health Care Education/Training Program
PROC: 0DJD8ZZ Inspection of Lower Intestinal Tract, Via Natural or Artificial Opening Endoscopic (ICD-10-PCS; CPT 45378; principal; 2018-08-02 10:55)
PROC: 0JH63XZ Insertion of Tunneled Vascular Access Device into Chest Subcutaneous Tissue and Fascia, Percutaneous Approach (ICD-10-PCS; principal; 2018-08-03 15:45)
DX: K71.10 Toxic liver disease with hepatic necrosis, without coma (principal); T50.905A Adverse effect of unspecified drugs, medicaments and biological substances, initial encounter; E87.1 Hypo-osmolality and hyponatremia; N17.9 Acute kidney failure, unspecified; I21.4 Non-ST elevation (NSTEMI) myocardial infarction; E87.5 Hyperkalemia; D68.9 Coagulation defect, unspecified; G93.41 Metabolic encephalopathy; Z23 Encounter for immunization; N18.3 Chronic kidney disease, stage 3 (moderate); K21.9 Gastro-esophageal reflux disease without esophagitis; I13.0 Hypertensive heart and chronic kidney disease with heart failure and stage 1 through stage 4 chronic kidney disease, or unspecified chronic kidney disease; F41.9 Anxiety disorder, unspecified; I50.22 Chronic systolic (congestive) heart failure; I42.9 Cardiomyopathy, unspecified; D69.6 Thrombocytopenia, unspecified; K62.5 Hemorrhage of anus and rectum; F32.9 Major depressive disorder, single episode, unspecified; F17.210 Nicotine dependence, cigarettes, uncomplicated; R57.9 Shock, unspecified; K58.9 Irritable bowel syndrome, unspecified; N39.0 Urinary tract infection, site not specified; F10.10 Alcohol abuse, uncomplicated; G89.29 Other chronic pain; M54.9 Dorsalgia, unspecified; Y90.0 Blood alcohol level of less than 20 mg/100 ml; I25.2 Old myocardial infarction; Z95.5 Presence of coronary angioplasty implant and graft; Z79.01 Long term (current) use of anticoagulants; Z79.82 Long term (current) use of aspirin
CPT/HCPCS: 36415; 36556; 36569; 36600; 51702; 70450; 71045; 74170; 74177; 76705; 77001; 80048; 80053; 80069; 80074; 80076; 80307; 80320; 80329; 81001; 82009; 82140; 82248; 82274; 82803; 82962; 82977; 83520; 83605; 83690; 84100; 84300; 84484; 85025; 85610; 85730; 86038; 86160; 86225; 86235; 86256; 86704; 86850; 86900; 87040; 87086; 87340; 87633; 88305; 90937; 93005; 93306; 96374; 97162; 97166; 97530; 97802; 99283; 99285; 99406; J7030; J7040; J7050; Q9957; Q9967; 90686; A4216; C1752; C1769; C8929; G0257; G0480; J0696; J2405

== ENCOUNTER 2018-09-25 08:16 | Emergency (ER) | payer MEDICAID, SELFPAY ==
[2018-09-21 08:13] VITALS: BMI 28.6
[2018-09-25 08:16] VITALS: BP 163/88; PULSE 98; RESP 16; TEMP 37.1; O2SAT 92; BMI 26.6
--- NOTE | 2018-09-25 08:36 | ED.DCSUM_ITS ---
- ER Visit Summary Date of Service: 09/25/18 Chief Complaint: Diarrhea History of Present Illness: The patient is a 63 F who was recently in an ECF, had quite a few complications secondary to alcohol abuse presents with diarrhea for 2 to 3 weeks. She has no new changes, she is emotionally sick of having di arrhea. She has not given any stool samples and has not had any analysis. She had acute renal injury and needed temporary dialysis, she is now off dialysis. She has no fever chills minimal abdominal pain that is worse right before she has diarrhea, as described as cramping. She has no back pain or urinary symptoms. Physical Examination: Not appear in acute distress. Moist mucous membranes, she has no signs of dehydration No C-spine tenderness supple neck. Regular rate and rhythm without any obvious murmurs Clear lungs bilaterally speaking in full sentences without any obvious respiratory distress Abdomen soft and nontender no guarding or rebound Moves all extremities without any difficulty or pain. Skin does not show any obvious rashes or lesions, no trauma. She is anxious, tearful Alert oriented ?3 with no gross focal deficit Emergency Department Course and Treatment: Patient was able to give us a stool sample, she was found to be hypokalemic, this was replaced in the ED and will be for home. She appears well and wants to be discharged. I will discharge her with potassium Bentyl and Zofran. This may be C. difficile or may be chronic diarrhea I am reluctant to start any treatment without definite results. If she worsens she needs to return. Disposition: Discharge stable condition Impression: Diarrhea Hypokalemia This note was generated with [employer] dictation software. It may contain incorrect words, spelling, and punctuation that were not noted in review of the chart prior to signing ED Disposition - Plan for ED Patient: Disposition: Home or Assisted Living Instructions: Treating Diarrhea Prescriptions: Ondansetron [Zofran Odt] 4 mg PO Q8H PRN PRN #10 tab PRN Reason: Nausea Dicyclomine HCl [Bentyl] 20 mg PO TIDAC #20 cap Potassium Chloride 40 meq PO DAILY #10 packet Referrals: Crystal Earl MD [Primary Care Provider] -
[2018-09-25] MEDS: 0.9% Normal Saline 1,000 ML 1000 ML IV (08:50)
[2018-09-25 08:59] LABS: Absolute Lymphocyte Count 0.78 X10^3/ul (0.83-4.51); Absolute Neutrophil Count 4.2 X10^3/uL (2.0-7.7); Eosinophil# 0.04 X10^3/uL; Eosinophils% 0.7 % (0-5); Hematocrit 31.3 % (37-47); Hemoglobin 10.1 g/dl (12.0-15.0); Lymphocyte # 0.78 X10^3/ul (4.0); Lymphocyte % 13.9 % (19-41); Mean Corp Hgb Conc 32.3 g/gl (32-36); Mean Corpuscular Hgb 27.5 pg (27.0-32.0); Mean Corpuscular Volume 85.3 fL (81-99); Mean Platelet Vol. 9.1 fl (6.2-12.0); Monocyte# 0.56 X10^3/uL; Neutrophil # 4.23 X10^3/uL (2.7-7.7); Neutrophil % 75.2 % (47-70); POSITIVE COUNT NO; POSITIVE DIFFERENTIAL NO; POSITIVE MORPHOLOGY NO; Platelet Count 319 K/mm3 (150-450); RBC Distribution Width CV 14.9 % (11.6-14.6); RBC Distribution Width SD 45.3 fl (35.1-43.9); Red Blood Count 3.67 M/mm3 (4.2-5.4); White Blood Count 5.6 K/mm3 (4.4-11.0)
--- NOTE | 2018-09-25 09:25 | ED.RN ---
LAB RESULTED POTASSIUM 2.5, PHYSICIAN NOTIFIED
[2018-09-25 09:26] LABS: ALB/GLOB Ratio 0.7 RATIO (0.9-2.4); AST(SGOT) 13 U/L (15-37); Alanine Aminotransfer ALT/SGPT 15 U/L (13-56); Albumin, Serum 2.4 g/dL (3.2-5.0); Alkaline Phosphatase 129 U/L (45-117); Anion Gap 7 (5-15); BUN 14 mg/dL (7-18); Calcium,Total 7.8 mg/dL (8.5-10.1); Chloride 106 mmol/L (98-107); Creatinine, Serum 1.08 mg/dL (0.55-1.02); EST Glomerular Filtration Rate 54 mL/min (>60); Est Glom Filt Rate - Afr Amer 65 mL/min (>60); Estimated Creatinine Clearance 54.27 ml/min; Globulin 3.6 g/dL (2.2-4.2); Glucose 181 mg/dL (74-106); Potassium 2.5 mmol/L (3.5-5.1); Sodium Level 141 mmol/L (136-145)
[2018-09-25 10:17] VITALS: RESP 18
[2018-09-29 15:55] LABS: Protein C Antigen 59 % (60-150); Protein C, Functional 63 % (73-180)
[2018-09-29 15:56] LABS: Giardia Lamblia, Stool EIA Negative (Negative)
== END 2018-09-25 11:07 | disposition home or self-care (01) ==
PROVIDERS: Emergency Provider Emergency Medicine; Family Provider Internal Medicine; PCP Internal Medicine
DX: R19.7 Diarrhea, unspecified (principal); E87.6 Hypokalemia; I10 Essential (primary) hypertension; I25.2 Old myocardial infarction; Z86.73 Personal history of transient ischemic attack (TIA), and cerebral infarction without residual deficits
CPT/HCPCS: 80053; 83630; 85025; 85302; 85303; 87329; 87506; 96360; 96361; 99283; J7030; A4216

== ENCOUNTER 2018-10-10 11:27 | Observation (INO) | payer MEDICAID, SELFPAY ==
[2018-10-10] VITALS (7 sets, daily range): BP systolic 118–138; BP diastolic 51–69; PULSE 89–121; RESP 16–18; TEMP 36.6–36.9; O2SAT 94–98; BMI 27.1; BMI 26.9
--- NOTE | 2018-10-10 11:57 | ED.VIS.GEN ---
History of Present Illness Chief Complaint: Diarrhea Informant: Patient, Significant Other Onset: Weeks Context: Sudden Onset Timing: Continuous Quality: Watery stool Location: Did reside in [facility] Current Severity: Moderate Maximum Severity: Moderate Worsened by: Patient alleges secondary to Kayexalate and suppository Relieved by: Nothing Associated Symptoms: Nausea, dry mouth, thirst and orthostatic symptoms Narrative: Patient is a 63-year-old woman who presents with diarrhea. She was at nursing facility. She states she was at nursing facility for 2 months. She developed diarrhea. She was told she did not have C. difficile. She reported acute kidney injury and required dialysis via left Vas-Cath. She reports 5-10 loose watery stools today. She denies fever, chills night sweats. She reports crampy generalized abdominal pain with diarrhea. She denies fever, chills night sweats. She reports weight loss. She reports no ocular, visual or auditory symptoms. She reports no cardiac or respiratory symptoms. She does report decreased urine output. Prior similar symptoms: Yes Recent Illness/Hospitalization: Yes - Past Medical History (1) Coagulopathy Status: Acute (2) Hepatic encephalopathy Status: Acute (3) Anxiety disorder Status: Chronic (4) Cardiomyopathy Status: Chronic (5) Depressive disorder Status: Chronic (6) Esophageal reflux Status: Chronic (7) Essential hypertension Status: Chronic (8) Irritable bowel syndrome (IBS) Status: Chronic (9) NSTEMI (non-ST elevated myocardial infarction) Status: Resolved Past Medical History - Allergies and Home Meds Allergies/Adverse Reactions: Allergies duloxetine HCl [From Cymbalta] Adverse Reaction (Verified 10/10/18 11:31) Other morphine Adverse Reaction (Verified 10/10/18 11:31) Itching pramipexole di-HCl [From Mirapex] Adverse Reaction (Verified 10/10/18 11:31) Other Sulfa (Sulfonamide Antibiotics) Adverse Reaction (Verified 10/10/18 11:31) Unknown tramadol HCl [From Ultram] Adverse Reaction (Verified 10/10/18 11:31) Itching varenicline [From Chantix] Adverse Reaction (Verified 10/10/18 11:31) Unknown Primary Care Physician: Crystal Earl MD [Primary Care Provider] - Prior records reviewed: Yes Surgical History: noncontributory, - Lives: Spouse/ Significant Other Smoking Status: Current some day smoker Drugs: None - Family History Maternal Family History: Family History (Last Reviewed 09/21/18 @ 08:13 by Jennifer Allen) Other Adopted Family History: Reports: No pertinent history - Patient was adopted Paternal Family History: Family History (Last Reviewed 09/21/18 @ 08:13 by Jennifer Allen) Other Adopted Family History: Reports: No pertinent history - Was adopted Review of Systems General: Reports: Weight loss. Denies: Chills, Fever, Malaise, Subjective, Sweats, - Eyes: Denies: Visual changes - bilaterally, Blurred Vision - bilaterally ENT: Denies: Bilateral ear pain, Rhinorrhea, Sore throat Cardiovascular: Denies: Chest pain, Palpitations Respiratory: Denies: Dyspnea, Cough, Dyspnea on exertion Gastrointestinal: Reports: Abdominal pain, Nausea, Diarrhea. Denies: Vomiting, Melena, Hematochezia Genitourinary: Denies: Dysuria, Hematuria, Frequency Musculoskeletal: Denies: Myalgias, Arthralgias, Neck pain, Back pain, Swelling, Extremity Pain, -, - Skin: Denies: Rash, Wounds Neurological: Reports: Weakness. Denies: Headache, Parasthesia, Numbness, -, - Psych: Reports: Depression, Anxiety Hematologic: Denies: Easy bruising, Easy bleeding Allergy: Denies: Uticaria, Swelling of the mouth Physical Exam Vital Signs/Narrative: Vital Signs Temp Pulse Resp BP Pulse Ox 10/10/18 11:28 98 F 121 H 18 118/58 L 97 Inital Vital Signs reviewed: Yes General: Well nourished, Well developed, Unkempt, No Acute Distress Head: Normocephalic, Atraumatic Eyes: Perrl, EOMI. Negative for: Pale conjunctiva, Scleral icterus, - ENT: No rhinorrhea, TM's clear, Dry mucous membranes Neck: Supple, Nontender, No lymphadenopathy, No JVD Cardiovascular: Regular rhythm, No murmurs, Normal S1, Normal S2, Tachycardia Respiratory: No distress, CTA bilaterally, Chest nontender Abdomen: Soft, Nondistended, No masses, Tender, Hyperactive bowel sounds. Negative for: Guarding, Rebound tenderness, Hypoactive bowel sounds, Hepatomegaly, Splenomegaly, Mass, Pulsatile mass Rectal: Deferred Back: Nontender, Normal Inspection Extremities: Nontender, No edema Skin: No rash, Jaundice - Patient appears to have light yellow tinge to skin; however, there is no scleral icterus., No Trauma. Negative for: Cyanosis, Diaphoresis Neurological: Alert, Oriented x3, Cranial nerves II-XII grossly intact, Normal Strength, Normal Sensation Psychological: Depressed Diagnostic/Tx/Re-eval Laboratory Results 10/10/18 10/10/18 10/10/18 12:10 12:10 12:10 WBC 8.9 RBC 3.43 L Hgb 9.5 L Hct 29.4 L MCV 85.7 MCH 27.7 MCHC 32.3 RDW 16.4 H RDW Differential 50.4 H Plt Count 331 MPV 8.6 Immature Gran % (Auto) SPOT WELDER BODY ASSEMBLY Neut % (Auto) SPOT WELDER BODY ASSEMBLY Lymph % (Auto) SPOT WELDER BODY ASSEMBLY Cameron % (Auto) SPOT WELDER BODY ASSEMBLY Eos % (Auto) SPOT WELDER BODY ASSEMBLY Baso % (Auto) SPOT WELDER BODY ASSEMBLY Absolute Neuts (auto) 6.8 Absolute Lymphs (auto) 0.62 L Total Counted 100 Neutrophils % (Manual) 59 Band Neutrophils % 18 H Lymphocytes % (Manual) 7 L Monocytes % (Manual) 12 H Eosinophils % (Manual) 2 Metamyelocytes % 2 H Diff Path Review May foll Platelet Estimate ADEQUATE Hypochromasia RARE Anisocytosis 1+ PT 16.6 H INR 1.4 Sodium 137 Potassium 2.9 L Chloride 102 Carbon Dioxide 28.0 Anion Gap 7 BUN 15 Creatinine 1.16 H Estim Creat Clear Calc 52.29 Est GFR (MDRD) Af Amer 60 Est GFR (MDRD) Non-Af 50 L BUN/Creatinine Ratio 12.9 Glucose 162 H Calcium 7.5 L Total Bilirubin 0.70 Direct Bilirubin 0.31 H AST 11 L ALT 13 Alkaline Phosphatase 182 H Total Protein 5.5 L Albumin 1.7 L Globulin 3.8 - Medical Decision Making Clinically patient is dehydrated. IV was established she received 1 L of normal saline. She received Zofran for her nausea. In light of past history of hepatic encephalopathy and coagulopathy PT/INR hepatic or added to initial order set. With history of acute kidney injury basic mental panel was obtained to assess electrodes significant potassium as well as renal function. Patient did have watery stool that was sent to the lab. She does not feel she is capable of caring for herself. Spoke with case management. I was informed that arrangements have been made for passport to come to her house and visiting nurse however services have not started. ED Disposition - Plan for ED Patient: Disposition: [facility] Diagnosis: Diarrhea, Renal insufficiency, Anemia, chronic disease, Failure to thrive in adult Referrals: Crystal Eral MD [Primary Care Provider] -
[2018-10-10] MEDS: Ondansetron 4 MG/2 ML Vial IV (12:11)
[2018-10-10] MEDS: 0.9% Normal Saline 1,000 ML 1000 ML IV (12:11)
[2018-10-10 12:25] LABS: Hematocrit 29.4 % (37-47); Hemoglobin 9.5 g/dl (12.0-15.0); Mean Corp Hgb Conc 32.3 g/gl (32-36); Mean Corpuscular Hgb 27.7 pg (27.0-32.0); Mean Corpuscular Volume 85.7 fL (81-99); Mean Platelet Vol. 8.6 fl (6.2-12.0); Platelet Count 331 K/mm3 (150-450); RBC Distribution Width CV 16.4 % (11.6-14.6); RBC Distribution Width SD 50.4 fl (35.1-43.9); Red Blood Count 3.43 M/mm3 (4.2-5.4); White Blood Count 8.9 K/mm3 (4.4-11.0)
[2018-10-10 12:27] LABS: POSITIVE COUNT NO; POSITIVE DIFFERENTIAL NO; POSITIVE MORPHOLOGY YES
[2018-10-10 12:29] LABS: International Normalized Ratio 1.4; Prothrombin Time (Protime)PT. 16.6 SECONDS (11.7-14.9)
[2018-10-10 12:35] LABS: AST(SGOT) 11 U/L (15-37); Alanine Aminotransfer ALT/SGPT 13 U/L (13-56); Albumin, Serum 1.7 g/dL (3.2-5.0); Alkaline Phosphatase 182 U/L (45-117); Anion Gap 7 (5-15); BUN 15 mg/dL (7-18); BUN/Creat Ratio 12.9 RATIO (10-20); Bilirubin, Direct 0.31 mg/dL (0.00-0.30); Calcium,Total 7.5 mg/dL (8.5-10.1); Chloride 102 mmol/L (98-107); Creatinine, Serum 1.16 mg/dL (0.55-1.02); EST Glomerular Filtration Rate 50 mL/min (>60); Est Glom Filt Rate - Afr Amer 60 mL/min (>60); Estimated Creatinine Clearance 52.29 ml/min; Globulin 3.8 g/dL (2.2-4.2); Glucose 162 mg/dL (74-106); Potassium 2.9 mmol/L (3.5-5.1); Protein, Total 5.5 g/dL (6.4-8.2); Sodium Level 137 mmol/L (136-145)
[2018-10-10 12:57] LABS: Scan Smear per Review Criteria MANUAL DIFF
[2018-10-10 12:58] LABS: Eosinophil 2 % (0-5); Lymphocyte 7 % (19-41); Metamyelocyte 2 % (0-1); Monocyte 12 % (0-10); Neutrophil-Band 18 % (0-5); Neutrophil-Segmented 59 % (47-70)
[2018-10-10 12:59] LABS: Anisocytosis 1+; Hypochromasia RARE
[2018-10-10 13:07] LABS: Differential Indicated MANUAL DIFF
[2018-10-10 13:08] LABS: Absolute Lymphocyte Count 0.62 X10^3/ul (0.83-4.51); Absolute Neutrophil Count 6.8 X10^3/uL (2.0-7.7)
[2018-10-10 13:09] LABS: Platelet Estimate ADEQUATE (ADEQ); Total Cells Counted 100 (MANUAL DIFF)
--- NOTE | 2018-10-10 13:30 | CM.ED ---
Social Work Assessment Referral Date: 10/10/18 Date of Assessment: 10/10/18 Informant: NURSE Reason for Consult: D/C PLANNING Information obtained from: PATIENT, PATIENT'S LOULOU PHIPPS AND PIANO MOVER AT [facility] Living Arrangements: PATIENT LIVES HOME WITH LOULOU PHIPPS IN A 2 STORY HOME WITH 1ST FLOOR SET UP AND 2 STEPS TO ENTER. DME: CANE, 2 WALKERS, WHEELCHAIR, BSC, SHOWER CHAIR, LIFE ALERT Employment/Financial: DISABLED Supports: PATIENT REPORTS SERVICES FOR HOME HEALTH/PASSPORT SERVICES ARE TO BE STARTING. PATIENT HAS GOOD SUPPORT FROM ADRIANA CHERY. Social/Family Stressors: PATIENT STATES HAS NOT BEEN FEELING WELL FOR OVER 7 WEEKS. PATIENT REPORTS NAUSEA AND DIARRHEA NOT GOING AWAY AND HAS BEEN GOING THROUGH MANY DEPENDS. Mental Health History: PATIENT ADMITS TO HX OF ANXIETY AND DEPRESSION. PATIENT STATES FOLLOWS WITH JACK FROM [facility]. Substance Abuse History: PATIENT ADMITS TO HX OF ALCOHOL USE AND STATES HAS ABSTAINED FOR 2 1/2 MONTHS. Interventions: SOCIAL SERVICE ASSESSMENT CALL TO [facility] TO DISCUSS PATIENT'S RECENT SNF STAY. PER BRANDON, PATIENT WAS ADMITTED TO [facility] ON 08/04/18 AND LEFT ON 09/08/18. BRANDON REPORTS UPON LEAVING FACILITY PATIENT WAS SET UP WITH DME, VISITING NURSES, A PASSPORT REFERRAL WAS INITIATED, AND REFERRAL TO ADULT PROTECTIVE SERVICES WAS MADE. CALL TO [facility], MESSAGE LEFT FOR CLINICAL PRINCIPAL BIOSTATISTICIAN. CALL TO AREA AGENCY, LEFT MESSAGE FOR FORTUNATO. Assessment: SOCIAL SERVICE REFERRAL MADE BY NURSING FOR D/C PLANNING NEEDS/RESOURCES. MET WITH PATIENT AT BEDSIDE, INTRODUCED ROLE AND REASON FOR REFERRAL. PATIENT GAVE PERMISSION TO SPEAK OPENLY WITH ADRIANA CHERY PRESENT. PATIENT STATES LIVES HOME WITH LOULOU PHIPPS IN A 2 STORY HOME WITH 1ST FLOOR SET UP AND 2 STEPS TO ENTER. PATIENT STATES HAS ALL DME. PATIENT REPORTS NEEDING MORE CARE. INQUIRED ABOUT IN HOME SERVICES. PATIENT STATES HOME HEALTH NEVER STARTED AND SHOULD BE GETTING ADDITIONAL HELP SOON. THIS WORKER ASKED IF PATIENT HAD REFERRAL TO PASSPORT. PATIENT UNSURE. PATIENT REPORTS LEFT [facility] A FEW WEEKS AGO AND WILL NOT GO BACK. PATIENT ADMITS TO HX OF ANXIETY AND DEPRESSION AND STATES FOLLOWS WITH A COUNSELOR. PATIENT ADMITS TO ALCOHOL USE AND STATES HAS ABSTAINED FOR 2 1/2 MONTHS. PATIENT COMPLETING WORK UP. WILL CONTINUE TO FOLLOW. CALL TO [facility] TO INQUIRE ABOUT SERVICES UPON D/C FROM FACILITY. SPOKE WITH PIANO MOVER, BRANDON. PER BRANDON, PATIENT WAS SET UP WITH VISITING NURSES FOR PHYSICAL THERAPY ONLY?? PASSPORT REFERRAL WAS INITIATED AND A REFERRAL WAS MADE TO ADULT PROTECTIVE SERVICES. TELEPHONE CALL TO VISITING NURSES AND AREA AGENCY TO INQUIRE ABOUT SERVICES. MESSAGES LEFT, AWAITING CALL BACK FROM BOTH AGENCIES. PLAN: TBD
[2018-10-10] MEDS: Metoclopramide 10 MG/2 ML Vial 5 MG IV (14:20)
--- NOTE | 2018-10-10 15:47 | NURSING ---
DR MYERS FOR DR DALAL
--- NOTE | 2018-10-10 15:50 | CM.ED ---
SOCIAL WORK UPDATED BY DR. DALAL, ANTICIPATE ADMISSION OBSERVATION. MET WITH PATIENT IN ROOM. PATIENT STATES WILL NOT RETURN TO [facility], BUT FEELS SHE NEEDS LONG-TERM PLACEMENT. WILL NEED TO OBTAIN INSURANCE AUTH PRIOR TO D/C. PATIENT WISHES TO REVIEW OTHER FACILITIES AND STATES MAYBE [facility]. WILL FOLLOW UP. JOE CHRISTIANSEN, PLACEMENT OFFICER, FRAUD INVESTIGATOR.
--- NOTE | 2018-10-10 15:54 | PCM.HP.STD ---
Problem List (1) Anemia, chronic disease Status: Chronic (2) Failure to thrive in adult Status: Acute (3) Essential hypertension Status: Chronic (4) Renal insufficiency Status: Chronic History of Present Illness Date of Admission: 10/10/18 Chief Complaint: Diarrhea - weeks The patient is a 63 year old F with PMHx of Irritable bowel syndrome, recently admitted and discharged after a long protracted hospital course for generalized weakness, abdominal pain and rectal bleeding. Patient was managed in the ICU, had a central line placed, she also was found to have acute liver injury with coagulopathy. She was started on dialysis for GEORGE on CKD. She was seen by general surgery and underwent upper and lower endoscopy that was unremarkable. She was also found to have NSTEMI, EF of 45%. Her stay was also complicated by thrombocytopenia. Since discharge patient had been in alf until he signed out AGAINST MEDICAL ADVICE on 08/31/2018. She has been at home with her boyfriend and has had home health care. She however has been having progressively worsening diarrhea as well as generalized weakness and is looking to have some rehab [facility]. She also admits to having daily rectal bleeding with all bowel movements. She has had 4 bowel movements today, all large, blood was mixed with a stool. Vitals in the ED showed blood pressure 118/58, heart rate 121, temperature 98, respiratory rate was 18, SPO2 is 97% on room air. Admitting blood work showed WBC count of 8.9, hemoglobin 9.5, platelet count 331, INR 1.4, sodium 137, potassium 2.9, chloride 102, bicarbonate 28, BUN 15, creatinine 1.16, AST is 11, ALT 13, ALP is 182, Albumin 1.7. Past Medical History Past Medical History (Chronic Problems): Chronic Problems (Last Reviewed 09/21/18 @ 08:13 by Jennifer Allen) Renal insufficiency (Chronic) Anemia, chronic disease (Chronic) Essential hypertension (Chronic) Frequent falls (Chronic) Cardiomyopathy (Chronic) Tobacco use disorder (Chronic) Esophageal reflux (Chronic) Depressive disorder (Chronic) Back ache (Chronic) Irritable bowel syndrome (IBS) (Chronic) Anxiety disorder (Chronic) Medical History: Medical History (Last Reviewed 09/21/18 @ 08:13 by Jennifer Allen) Frequent falls (Chronic) R29.6 Shock, unspecified (Acute) R57.9 GI bleed (Acute) K92.2 Acute liver failure (Acute) K72.00 Coagulopathy (Acute) D68.9 UTI (urinary tract infection) (Resolved) N39.0 Hepatic encephalopathy (Acute) K72.90 Cardiomyopathy (Chronic) I42.9 Acute renal insufficiency (Acute) N28.9 Acute renal failure (Acute) N17.9 Lightheadedness (Acute) R42 Unsteady gait (Acute) R26.81 Headache (Acute) R51 Chest pain (Acute) R07.9 Tobacco use disorder (Chronic) F17.200 Esophageal reflux (Chronic) K21.9 Depressive disorder (Chronic) F32.9 Back ache (Chronic) M54.9 Weakness of both arms (Resolved) M62.81 Numbness and tingling of right face (Resolved) R20.0, R20.2 Difficulty speaking (Resolved) NSTEMI (non-ST elevated myocardial infarction) (Resolved) I21.4 Jaw pain (Resolved) R68.84 Irritable bowel syndrome (IBS) (Chronic) Anxiety disorder (Chronic) F41.9 Vascular dementia with behavior disturbance F01.51 Allergies duloxetine HCl [From Cymbalta] Adverse Reaction (Verified 10/10/18 11:31) Other morphine Adverse Reaction (Verified 10/10/18 11:31) Itching pramipexole di-HCl [From Mirapex] Adverse Reaction (Verified 10/10/18 11:31) Other Sulfa (Sulfonamide Antibiotics) Adverse Reaction (Verified 10/10/18 11:31) Unknown tramadol HCl [From Ultram] Adverse Reaction (Verified 10/10/18 11:31) Itching varenicline [From Chantix] Adverse Reaction (Verified 10/10/18 11:31) Unknown Home Medications: Ambulatory Orders Medication Instructions Recorded Nitroglycerin [Nitrostat] 0.4 mg SL PRN PRN 08/20/13 Clonazepam [Klonopin] 0.5 mg PO QHS 08/14/15 Clopidogrel Bisulfate [Plavix] 75 mg PO DAILY 08/14/15 Metoprolol Tartrate [Lopressor 25 mg PO BID 08/14/15 (beta codie)] Aspirin [Aspirin, Baby] 81 mg PO DAILY@0800 09/08/17 Dicyclomine HCl [Bentyl] 10 mg PO ACHS 05/10/18 Triamcinolone 0.025% Cream 1 applic TOPICAL BID PRN 09/08/17 [Kenalog] Amlodipine [Norvasc] 5 mg PO DAILY #60 tab 09/09/17 Nystatin Powder [Mycostatin Powder] 1 applic TOPICAL 4X/DAY PRN PRN 07/16/18 Polyethylene Glycol 3350 [Miralax] 17 gm PO DAILY 07/16/18 Rosuvastatin Calcium [Crestor] 10 mg PO QHS 07/16/18 Albuterol Inhaler [Ventolin Hfa] 2 puff INHALATION Q4H PRN PRN 07/27/18 busPIRone [Buspar] 15 mg PO BID 07/27/18 Oxycodone [Oxyir] 5 - 10 mg PO Q6H PRN PRN #20 tab 08/04/18 bisacodyl 10 mg rectal suppository 10 mg RC DAILY PRN 08/28/18 calcium carbonate 200 mg calcium 200 mg PO Q4H PRN tab 08/28/18 (500 mg) chewable tablet docusate sodium 100 mg capsule 100 mg PO DAILY 08/28/18 mineral oil enema 118 ml RC ONCE PRN 08/28/18 omeprazole 40 mg capsule,delayed 40 mg PO DAILY cap 08/28/18 release sertraline 50 mg tablet 150 mg PO DAILY tab 08/28/18 Ondansetron [Zofran Odt] 4 mg PO Q8H PRN PRN #10 tab 09/25/18 Potassium Chloride 40 meq PO DAILY #10 packet 09/25/18 Surgical History: Surgical History (Last Reviewed 09/21/18 @ 08:13 by Jennifer Allen) History of colonoscopy Z98.890 X 2 Surgical History: noncontributory, - Psychiatric History: No pertinent psych hx Lives: Spouse/ Significant Other Smoking Status: Current some day smoker Tobacco Use: Cigarettes Drugs: None - *Family History Maternal Family History: Family History (Last Reviewed 09/21/18 @ 08:13 by Jennifer Allen) Other Adopted History Items: No pertinent history - Patient was adopted Paternal Family History: Family History (Last Reviewed 09/21/18 @ 08:13 by Jennifer Allen) Other Adopted History Items: No pertinent history - Was adopted Review of Systems Constitutional: Reports: Malaise, Weakness, Fatigue. Denies: Anorexia, Chills, Fever, Night Sweats, Weight Change Eyes: Denies: Blurred vision, Cataracts, Conjunctivae Inflammation, Pain, Redness, Vision Change HEENT: Denies: Difficulty Hearing, Head Aches, Hearing Changes, Sinus Congestion, Sinus Drainage Cardiovascular: Denies: Chest Pain, Claudication, Orthopnea, Palpitations, Paroxysmal Noc. Dyspnea Respiratory: Denies: Cough, Hemoptysis, Shortness of breath at rest, Shortness of breath upon exertion, Sputum production Gastrointestinal: Denies: Abdominal Pain, Hematemesis, Hematochezia, Nausea, Vomiting Genitourinary: Denies: Dysuria, Frequency, Incontinence Musculoskeletal: Denies: Joint Pain, Joint stiffness, Joint swelling, Joint Tenderness Skin: Denies: Rash, Wounds Neurological: Denies: Difficulty swallowing, Focal weakness, Numbness, Tingling Psychiatric: Denies: Anxiety, Depression, Homicidal Ideations, Suicidal Ideations Hematologic/ Lymphatic: Denies: Easy Bruising, Easy Bleeding VTE Information - Inpt Only VTE Present on Admission: No VTE Pharm Prophylaxis ordered?: Yes Patient Problems: Active and Suspected Problems (Last Reviewed 09/21/18 @ 08:13 by Jennifer Allen) Diarrhea (Acute) Failure to thrive in adult (Acute) - Physical Exam General: Alert, Oriented x3, Cooperative, No apparent distress HEENT: Atraumatic, PERRLA, EOMI, Normocephalic Oral: Dry Mucosa Neck: Supple Lungs: Clear to auscultation, Normal air movement Cardiovascular: Regular rate, Regular Rhythm, Normal S1, Normal S2, No murmurs Abdomen: Bowel Sounds Present, Soft, Tender - genaralised, ?guarding, no RBT Extremities: No edema Skin: No rashes, No breakdown Musculoskeletal: No Tenderness to Palpation of Joints or Extremities Neurological: Cranial nerves II-XII grossly intact, Neuro grossly intact Psych/Mental Status: Normal Affect, Appropriate Vital Signs Temp Pulse Resp BP Pulse Ox 98.2 F 104 H 16 128/69 H 96 10/10/18 15:53 10/10/18 15:53 10/10/18 15:53 10/10/18 15:53 10/10/18 15:53 Oxygen Delivery Method Room Air Weight: 85.729 kg Body Mass Index (BMI) 27.1 Finger Stick Blood Glucose 199 Microbiology Past 72 Hours 10/10/18 13:30 C. difficile DNA Amplification - Final Stool Laboratory Tests Past 24 Hrs 10/10/18 10/10/18 10/10/18 12:10 12:10 12:10 WBC 8.9 RBC 3.43 L Hgb 9.5 L Hct 29.4 L MCV 85.7 MCH 27.7 MCHC 32.3 RDW 16.4 H RDW Differential 50.4 H Plt Count 331 MPV 8.6 Immature Gran % (Auto) METAL BUGGY OPERATOR Neut % (Auto) METAL BUGGY OPERATOR Lymph % (Auto) METAL BUGGY OPERATOR Simpson % (Auto) METAL BUGGY OPERATOR Eos % (Auto) METAL BUGGY OPERATOR Baso % (Auto) METAL BUGGY OPERATOR Absolute Neuts (auto) 6.8 Absolute Lymphs (auto) 0.62 L Total Counted 100 Neutrophils % (Manual) 59 Band Neutrophils % 18 H Lymphocytes % (Manual) 7 L Monocytes % (Manual) 12 H Eosinophils % (Manual) 2 Metamyelocytes % 2 H Diff Path Review May foll Platelet Estimate ADEQUATE Hypochromasia RARE Anisocytosis 1+ PT 16.6 H INR 1.4 Sodium 137 Potassium 2.9 L Chloride 102 Carbon Dioxide 28.0 Anion Gap 7 BUN 15 Creatinine 1.16 H Estim Creat Clear Calc 52.29 Est GFR (MDRD) Af Amer 60 Est GFR (MDRD) Non-Af 50 L BUN/Creatinine Ratio 12.9 Glucose 162 H Calcium 7.5 L Total Bilirubin 0.70 Direct Bilirubin 0.31 H AST 11 L ALT 13 Alkaline Phosphatase 182 H Total Protein 5.5 L Albumin 1.7 L Globulin 3.8 Assessment/Plan All Active Problems (Last Reviewed 09/21/18 @ 08:13 by Jennifer Allen) Diarrhea (Acute) Failure to thrive in adult (Acute) Shock, unspecified (Acute) GI bleed (Acute) Acute liver failure (Acute) Coagulopathy (Acute) UTI (urinary tract infection) (Resolved) Hepatic encephalopathy (Acute) Acute renal insufficiency (Acute) Acute renal failure (Acute) Lightheadedness (Acute) Unsteady gait (Acute) Headache (Acute) Chest pain (Acute) Weakness of both arms (Resolved) Numbness and tingling of right face (Resolved) Difficulty speaking (Resolved) NSTEMI (non-ST elevated myocardial infarction) (Resolved) Jaw pain (Resolved) 63 year old F with PMHx of Irritable bowel syndrome, recently admitted and discharged after a long protracted hospital course comes in with progressive fatigue, worsening diarrhea as well as GI bleed. 1. Acute on chronic diarrhea, history of irritable bowel syndrome, recently discharged from alf, Plan: Mid to MedSurg, IV fluids, stool for C. difficile, stool for enteric panel, stool lactoferrin, strict stool charting 2. Hypokalemia, severe secondary to acute on chronic diarrhea will check for magnesium, will replace 3. GI bleed, recent colonoscopy and EGD was negative, aspirin and Plavix held Plan: General surgery consulted, trend H&H, stool for occult blood 4. CKD stage III, recent GEORGE on CKD, was on dialysis, dialysis catheter removed 3 weeks ago, Continue on IV fluids, repeat BMP in a.m. 5. Recent NSTEMI in last admission, medically being managed, on aspirin and Plavix, being held for now on account of GI bleed No active complaints, will monitor 6. Nicotine dependence, on replacement 7. DVT PPx- SCDs Code Visit Inpatient E&M: 37096 Init Hosp L3
--- NOTE | 2018-10-10 15:55 | NURSING ---
MED SURG ACUTE DIARRHEA, DEBILITY PAINTSIL
--- NOTE | 2018-10-10 16:22 | CM.ED ---
SOCIAL WORK PATIENT REQUESTS REFERRAL TO [facility]. CALL TO M[facility]CRU[facility] TO UPDATE ON REFERRAL. JOE CHRISTIANSEN, LINK FABRIC MACHINE OPERATOR, POLYMER ENGINEER.
[2018-10-10 17:21] LABS: Magnesium 1.6 mg/dL (1.6-2.6)
[2018-10-10] MEDS: Potassium Chloride 10mEq/100mL 10 MEQ/100 ML IV.SOLN. 100 MEQ IV BOLUS ×4 (17:46→23:06)
[2018-10-10] MEDS: oxyCODONE 5 MG Tablet PO ×2 (17:50→20:31)
[2018-10-10 17:52] LABS: Hematocrit 27.2 % (37-47); Hemoglobin 8.9 g/dl (12.0-15.0)
[2018-10-10 17:56] LABS: Bedside Glucose 143 mg/dL (70-110)
[2018-10-10] MEDS: Dicyclomine 10 MG Capsule PO (18:00)
--- NOTE | 2018-10-10 19:47 | PCM.CONS.GEN ---
Reason for Consult Date of Consultation: 10/10/18 Reason for Consultation: Diarrhea, crampy abdominal pain, blood in stool History of Present Illness: The patient is a 63 year old F with a known history of irritable bowel syndrome who presents with complaints of crampy abdominal pain, diarrhea, and bloody bowel movements for the past few months. The patient returns to the emergency Department today with complaints of generalized weakness, abdominal pain and rectal bleeding. Until recently, the patient had been in and extended care facility which she was discharged after her recent prolonged hospitalization. Prior to that, the patient had been referred to me for a complaint of occasional rectal bleedingAfter presenting to the emergency department. She was supposed to follow up in my office but then was admitted to emergency department on July 19, 2018 with similar complaints of generalized weakness abdominal pain and rectal bleeding. At that point in time she stated she was having bleeding for approximately 12 days. When she was admitted to the hospital she was found to have low sodium, elevated potassium elevated BUN and creatinine and lactic acidosis. She was found to have a urinary tract infection and was admitted then to the ICU for mental status changes oliguria. She was started on Zosyn for her infection. She had acute renal insufficiency on top of her chronic renal insufficiency and required dialysis. She was felt to have also had a non-ST segment elevation at that admission. I evaluated the patient and performed upper and lower endoscopy. initial attempts at upper and lower endoscopy was performed on August 02, 2018. Upper endoscopy demonstrated no specific abnormalities. Gastric biopsy was performed was unremarkable. Colonoscopy was attempted but failed due to incomplete prep. The patient had repeated small bowel preparation and underwent colonoscopy on August 03, 2018.this demonstrated no abnormalities and no signs of bleeding. the patient was transferred to extended care facility on August 04, 2018. She returns now with similar complaints. laboratory studies today demonstrated a normal white blood cell count. hemoglobin is 8.9 down from a hemoglobin and discharge of 10.1.electrolytes-potassium is 2.9. Creatinine is 1.16. The patient apparently had one stool in the ER. Stool was sent for C. difficile which was negative but stool was found to be occult blood positive. Enteric pathogens are currently pending. The patient not had another bowel movement since admission and the floor. She stated earlier she was hungry and was given full liquid diet including Jell-O and pudding. She now states she feels somewhat nauseated. She denies nausea or vomiting prior to this episode. overall the patient states she has had abdominal pain for some time. She needs narcotics for her abdominal pain and also for her chronic pain issues area did she has poorly been on narcotics ever since discharge and her nursing facility. Her past medical history is for renal insufficiency, recently acute on chronic renal failure,hepatic encephalopathy, hypertension, tobacco use, cardiomyopathy, non-ST segment myocardial infarction, previous history of significant alcohol use, and irritable bowel syndrome. Past Medical History Past Medical History (Chronic Problems): Chronic Problems (Last Reviewed 09/21/18 @ 08:13 by Jennifer Allen) Renal insufficiency (Chronic) Anemia, chronic disease (Chronic) Essential hypertension (Chronic) Frequent falls (Chronic) Cardiomyopathy (Chronic) Tobacco use disorder (Chronic) Esophageal reflux (Chronic) Depressive disorder (Chronic) Back ache (Chronic) Irritable bowel syndrome (IBS) (Chronic) Anxiety disorder (Chronic) Medical History: Medical History (Last Reviewed 09/21/18 @ 08:13 by Jennifer Allen) Frequent falls (Chronic) R29.6 Shock, unspecified (Acute) R57.9 GI bleed (Acute) K92.2 Acute liver failure (Acute) K72.00 Coagulopathy (Acute) D68.9 UTI (urinary tract infection) (Resolved) N39.0 Hepatic encephalopathy (Acute) K72.90 Cardiomyopathy (Chronic) I42.9 Acute renal insufficiency (Acute) N28.9 Acute renal failure (Acute) N17.9 Lightheadedness (Acute) R42 Unsteady gait (Acute) R26.81 Headache (Acute) R51 Chest pain (Acute) R07.9 Tobacco use disorder (Chronic) F17.200 Esophageal reflux (Chronic) K21.9 Depressive disorder (Chronic) F32.9 Back ache (Chronic) M54.9 Weakness of both arms (Resolved) M62.81 Numbness and tingling of right face (Resolved) R20.0, R20.2 Difficulty speaking (Resolved) NSTEMI (non-ST elevated myocardial infarction) (Resolved) I21.4 Jaw pain (Resolved) R68.84 Irritable bowel syndrome (IBS) (Chronic) Anxiety disorder (Chronic) F41.9 Vascular dementia with behavior disturbance F01.51 Allergies duloxetine HCl [From Cymbalta] Adverse Reaction (Verified 10/10/18 11:31) Other morphine Adverse Reaction (Verified 10/10/18 11:31) Itching pramipexole di-HCl [From Mirapex] Adverse Reaction (Verified 10/10/18 11:31) Other Sulfa (Sulfonamide Antibiotics) Adverse Reaction (Verified 10/10/18 11:31) Unknown tramadol HCl [From Ultram] Adverse Reaction (Verified 10/10/18 11:31) Itching varenicline [From Chantix] Adverse Reaction (Verified 10/10/18 11:31) Unknown Home Medications: Ambulatory Orders Medication Instructions Recorded Nitroglycerin [Nitrostat] 0.4 mg SL PRN PRN 08/20/13 Clonazepam [Klonopin] 0.5 mg PO QHS 08/14/15 Clopidogrel Bisulfate [Plavix] 75 mg PO DAILY 08/14/15 Metoprolol Tartrate [Lopressor 25 mg PO BID 08/14/15 (beta codie)] Aspirin [Aspirin, Baby] 81 mg PO DAILY@0800 09/08/17 Dicyclomine HCl [Bentyl] 10 mg PO ACHS 09/08/17 Triamcinolone 0.025% Cream 1 applic TOPICAL BID PRN 09/08/17 [Kenalog] Amlodipine [Norvasc] 5 mg PO DAILY #60 tab 09/09/17 Nystatin Powder [Mycostatin Powder] 1 applic TOPICAL 4X/DAY PRN PRN 07/16/18 Polyethylene Glycol 3350 [Miralax] 17 gm PO DAILY 07/16/18 Rosuvastatin Calcium [Crestor] 10 mg PO QHS 07/16/18 Albuterol Inhaler [Ventolin Hfa] 2 puff INHALATION Q4H PRN PRN 07/27/18 busPIRone [Buspar] 15 mg PO BID 07/27/18 Oxycodone [Oxyir] 5 - 10 mg PO Q6H PRN PRN #20 tab 08/04/18 bisacodyl 10 mg rectal suppository 10 mg RC DAILY PRN 08/28/18 calcium carbonate 200 mg calcium 200 mg PO Q4H PRN tab 08/28/18 (500 mg) chewable tablet docusate sodium 100 mg capsule 100 mg PO DAILY 08/28/18 mineral oil enema 118 ml RC ONCE PRN 08/28/18 omeprazole 40 mg capsule,delayed 40 mg PO DAILY cap 08/28/18 release sertraline 50 mg tablet 150 mg PO DAILY tab 08/28/18 Ondansetron [Zofran Odt] 4 mg PO Q8H PRN PRN #10 tab 09/25/18 Potassium Chloride 40 meq PO DAILY #10 packet 09/25/18 Surgical History: Surgical History (Last Reviewed 09/21/18 @ 08:13 by Jennifer Allen) History of colonoscopy Z98.890 X 2 Surgical History: noncontributory, - Psychiatric History: No pertinent psych hx Lives: Spouse/ Significant Other Smoking Status: Current some day smoker Tobacco Use: Cigarettes Drugs: None - *Family History Maternal Family History: Family History (Last Reviewed 09/21/18 @ 08:13 by Jennifer Allen) Other Adopted History Items: No pertinent history - Patient was adopted Paternal Family History: Family History (Last Reviewed 09/21/18 @ 08:13 by Jennifer Allen) Other Adopted History Items: No pertinent history - Was adopted Review of Systems Constitutional: Reports: Anorexia, Malaise HEENT: Denies: Head Aches, Sinus Congestion, Sinus Drainage Cardiovascular: Reports: Chest Pain - prior Respiratory: Denies: Cough, Shortness of breath at rest, Sputum production Gastrointestinal: Reports: Abdominal Pain, Diarrhea, Hematochezia, Nausea Genitourinary: Reports: Dysuria Musculoskeletal: Reports: Back Pain. Denies: Joint Pain, Joint Tenderness Patient Problems: Active and Suspected Problems (Last Reviewed 09/21/18 @ 08:13 by Jennifer Allen) Diarrhea (Acute) Failure to thrive in adult (Acute) - Physical Exam General: Alert, Oriented x3, Cooperative Lungs: Clear to auscultation, Normal air movement Cardiovascular: Regular rate, Regular Rhythm Abdomen: Bowel Sounds Present, Soft - complain of mild diffuse tenderness without peritoneal signs no discrete guarding with palpation with the stethoscope Vital Signs Temp Pulse Resp BP Pulse Ox 98.2 F 108 H 16 128/68 H 96 10/10/18 15:53 10/10/18 16:03 10/10/18 16:03 10/10/18 16:03 10/10/18 16:03 Oxygen Delivery Method Room Air Weight: 82.7 kg Body Mass Index (BMI) 26.9 Finger Stick Blood Glucose 199 Microbiology Past 72 Hours 10/10/18 13:30 Stool Occult Blood (HEATH) - Final Stool Occult Blood Positive 10/10/18 13:30 C. difficile DNA Amplification - Final Stool Laboratory Tests Past 24 Hrs 10/10/18 10/10/18 10/10/18 12:10 12:10 12:10 WBC 8.9 RBC 3.43 L Hgb 9.5 L Hct 29.4 L MCV 85.7 MCH 27.7 MCHC 32.3 RDW 16.4 H RDW Differential 50.4 H Plt Count 331 MPV 8.6 Immature Gran % (Auto) VETERINARY MEDICINE DOCTOR Neut % (Auto) VETERINARY MEDICINE DOCTOR Lymph % (Auto) VETERINARY MEDICINE DOCTOR [place] % (Auto) VETERINARY MEDICINE DOCTOR Eos % (Auto) VETERINARY MEDICINE DOCTOR Baso % (Auto) VETERINARY MEDICINE DOCTOR Absolute Neuts (auto) 6.8 Absolute Lymphs (auto) 0.62 L Total Counted 100 Neutrophils % (Manual) 59 Band Neutrophils % 18 H Lymphocytes % (Manual) 7 L Monocytes % (Manual) 12 H Eosinophils % (Manual) 2 Metamyelocytes % 2 H Diff Path Review May foll Platelet Estimate ADEQUATE Hypochromasia RARE Anisocytosis 1+ PT 16.6 H INR 1.4 Sodium 137 Potassium 2.9 L Chloride 102 Carbon Dioxide 28.0 Anion Gap 7 BUN 15 Creatinine 1.16 H Estim Creat Clear Calc 52.29 Est GFR (MDRD) Af Amer 60 Est GFR (MDRD) Non-Af 50 L BUN/Creatinine Ratio 12.9 Glucose 162 H Calcium 7.5 L Magnesium Total Bilirubin 0.70 Direct Bilirubin 0.31 H AST 11 L ALT 13 Alkaline Phosphatase 182 H Total Protein 5.5 L Albumin 1.7 L Globulin 3.8 Blood Type Antibody Screen Crossmatch 10/10/18 10/10/18 10/10/18 12:10 17:40 17:40 WBC RBC Hgb 8.9 L Hct 27.2 L MCV MCH MCHC RDW RDW Differential Plt Count MPV Immature Gran % (Auto) Neut % (Auto) Lymph % (Auto) [place] % (Auto) Eos % (Auto) Baso % (Auto) Absolute Neuts (auto) Absolute Lymphs (auto) Total Counted Neutrophils % (Manual) Band Neutrophils % Lymphocytes % (Manual) Monocytes % (Manual) Eosinophils % (Manual) Metamyelocytes % Diff Path Review Platelet Estimate Hypochromasia Anisocytosis PT INR Sodium Potassium Chloride Carbon Dioxide Anion Gap BUN Creatinine Estim Creat Clear Calc Est GFR (MDRD) Af Amer Est GFR (MDRD) Non-Af BUN/Creatinine Ratio Glucose Calcium Magnesium 1.6 Total Bilirubin Direct Bilirubin AST ALT Alkaline Phosphatase Total Protein Albumin Globulin Blood Type Pending Antibody Screen Pending Crossmatch See Detail POC Glucose 10/10/18 17:52 POC Glucose 143 H Assessment/Plan All Active Problems (Last Reviewed 09/21/18 @ 08:13 by Jennifer Allen) Diarrhea (Acute) Failure to thrive in adult (Acute) Shock, unspecified (Acute) GI bleed (Acute) Acute liver failure (Acute) Coagulopathy (Acute) UTI (urinary tract infection) (Resolved) Hepatic encephalopathy (Acute) Acute renal insufficiency (Acute) Acute renal failure (Acute) Lightheadedness (Acute) Unsteady gait (Acute) Headache (Acute) Chest pain (Acute) Weakness of both arms (Resolved) Numbness and tingling of right face (Resolved) Difficulty speaking (Resolved) NSTEMI (non-ST elevated myocardial infarction) (Resolved) Jaw pain (Resolved) nausea, abdominal pain, diarrhea with rectal bleeding-recent negative upper and lower endoscopy. Patient is being admitted for IV fluids and electrolyte correction. She has been on chronic narcotics will be continued to be given narcotics for her pain symptoms. I ordered an abdominal series to assess her bowel gas pattern fecal loading currently. The patient had a CT scan of the abdomen which demonstrated an pleural effusion but otherwise no abdominal pathology and her previous hospitalization area without other more specific findings I would not repeat CAT scan at this time. Stool cultures are pending anticipate these will be negative. Given the fact the patient Hemoccult positive stools, I would repeat upper and lower endoscopy. Currently recommend we correct her electrolytes and recheck her electrodes and sugars he has adequate urine output overnight. Also based on the degree of fecal loading we will decide how much bowel prep we should provide and then plan for upper and lower endoscopy likely morning. The patient stands the risks, benefits. Complications and possible alternatives to endoscopy and consents to those procedures.
--- NOTE | 2018-10-10 20:00 | RAD_ITS ---
STUDY: X-RAY - ABDOMEN/PELVIS REASON FOR EXAM: Female, 63 years old. Abdominal pain. Diarrhea. TECHNIQUE: 4 views of the abdomen were obtained, including supine and upright views. COMPARISON: CT dated 07/28/2018. FINDINGS: There is no bowel obstruction. There is air and stool to the level of the rectum. There is a large amount of stool in the colon, consistent with constipation. There is no free air. The visualized osseous structures are within normal limits. RAD/Abd Inc Decub and/or Erect IMPRESSION: No bowel obstruction. Constipation Electronically Signed: Raj Carter, at 20:45 EDT Tel , Service support ,
[2018-10-10] MEDS: 0.9% NaCl Peripheral Flush Adult/Peds IV (20:32)
[2018-10-10] MEDS: Atorvastatin Calcium 20 MG Tablet PO (22:03)
[2018-10-10] MEDS: busPIRone 15 MG TABLET PO (22:03)
[2018-10-10] MEDS: Metoprolol Tartrate 25 MG Tablet PO (22:03)
[2018-10-10] MEDS: clonazePAM 0.5 MG Tablet PO (22:04)
[2018-10-10] MEDS: Insulin Lispro 100 UNIT/ML INSULN.PEN SQ (22:11)
[2018-10-10 22:15] LABS: Bedside Glucose 167 mg/dL (70-110)
[2018-10-10 22:20] LABS: Hematocrit 28.1 % (37-47); Hemoglobin 9.2 g/dl (12.0-15.0)
[2018-10-11] MEDS: oxyCODONE 5 MG Tablet PO ×2 (00:06→06:36)
--- NOTE | 2018-10-11 00:32 | NURSING ---
One attempt by [facility] and three attempts by con RN to start IV unsuccessfully.
[2018-10-11 02:55] VITALS: BP 119/87; PULSE 84; RESP 16; TEMP 36.8; O2SAT 97
[2018-10-11 06:04] LABS: Absolute Lymphocyte Count 0.98 X10^3/ul (0.83-4.51); Absolute Neutrophil Count 4.4 X10^3/uL (2.0-7.7); Eosinophil# 0.07 X10^3/uL; Eosinophils% 1.2 % (0-5); Hematocrit 25.7 % (37-47); Hemoglobin 8.3 g/dl (12.0-15.0); Lymphocyte # 0.98 X10^3/ul (4.0); Lymphocyte % 16.3 % (19-41); Mean Corp Hgb Conc 32.3 g/gl (32-36); Mean Corpuscular Hgb 27.9 pg (27.0-32.0); Mean Corpuscular Volume 86.5 fL (81-99); Mean Platelet Vol. 8.4 fl (6.2-12.0); Monocyte# 0.56 X10^3/uL; Monocyte% 9.3 % (0-10); Neutrophil # 4.37 X10^3/uL (2.7-7.7); Neutrophil % 72.9 % (47-70); Platelet Count 283 K/mm3 (150-450); RBC Distribution Width CV 16.5 % (11.6-14.6); RBC Distribution Width SD 51.3 fl (35.1-43.9); Red Blood Count 2.97 M/mm3 (4.2-5.4)
[2018-10-11 06:05] LABS: Differential Indicated SCAN CRITERIA MET; POSITIVE COUNT NO; POSITIVE DIFFERENTIAL NO; POSITIVE MORPHOLOGY YES
[2018-10-11 06:11] LABS: ALB/GLOB Ratio 0.4 RATIO (0.9-2.4); AST(SGOT) 11 U/L (15-37); Alanine Aminotransfer ALT/SGPT 13 U/L (13-56); Albumin, Serum 1.3 g/dL (3.2-5.0); Alkaline Phosphatase 155 U/L (45-117); Anion Gap 8 (5-15); BUN 14 mg/dL (7-18); BUN/Creat Ratio 14.5 RATIO (10-20); Calcium,Total 7.3 mg/dL (8.5-10.1); Chloride 108 mmol/L (98-107); Creatinine, Serum 0.97 mg/dL (0.55-1.02); EST Glomerular Filtration Rate 61 mL/min (>60); Est Glom Filt Rate - Afr Amer 74 mL/min (>60); Estimated Creatinine Clearance 60.43 ml/min; Globulin 3.3 g/dL (2.2-4.2); Glucose 141 mg/dL (74-106); Potassium 3.1 mmol/L (3.5-5.1); Protein, Total 4.6 g/dL (6.4-8.2); Sodium Level 143 mmol/L (136-145)
--- NOTE | 2018-10-11 06:14 | PCM.PN.SRG ---
Patient Problems: Active and Suspected Problems (Last Reviewed 09/21/18 @ 08:13 by Jennifer Allen) Diarrhea (Acute) Failure to thrive in adult (Acute) - Physical Exam Vital Signs Temp Pulse Resp BP Pulse Ox 98.2 F 84 16 119/87 H 97 10/11/18 02:55 10/11/18 02:55 10/11/18 02:55 10/11/18 02:55 10/11/18 02:55 Oxygen Delivery Method Room Air Weight: 82.7 kg Body Mass Index (BMI) 26.9 Finger Stick Blood Glucose 199 Intake and Output for Last 24 Hours 10/09/18 10/10/18 10/11/18 23:59 23:59 23:59 Intake Total 910 / 910 Balance 910 / 910 Microbiology Past 72 Hours 10/10/18 13:30 Stool Occult Blood (HEATH) - Final Stool Occult Blood Positive 10/10/18 13:30 C. difficile DNA Amplification - Final Stool Laboratory Tests Past 24 Hrs 10/10/18 10/10/18 10/10/18 12:10 12:10 12:10 WBC 8.9 RBC 3.43 L Hgb 9.5 L Hct 29.4 L MCV 85.7 MCH 27.7 MCHC 32.3 RDW 16.4 H RDW Differential 50.4 H Plt Count 331 MPV 8.6 Immature Gran % (Auto) SUPERINTENDENT ELECTRIC POWER Neut % (Auto) SUPERINTENDENT ELECTRIC POWER Lymph % (Auto) SUPERINTENDENT ELECTRIC POWER [place] % (Auto) SUPERINTENDENT ELECTRIC POWER Eos % (Auto) SUPERINTENDENT ELECTRIC POWER Baso % (Auto) SUPERINTENDENT ELECTRIC POWER Absolute Neuts (auto) 6.8 Absolute Lymphs (auto) 0.62 L Total Counted 100 Neutrophils % (Manual) 59 Band Neutrophils % 18 H Lymphocytes % (Manual) 7 L Monocytes % (Manual) 12 H Eosinophils % (Manual) 2 Metamyelocytes % 2 H Diff Path Review May foll Platelet Estimate ADEQUATE Hypochromasia RARE Anisocytosis 1+ PT 16.6 H INR 1.4 Sodium 137 Potassium 2.9 L Chloride 102 Carbon Dioxide 28.0 Anion Gap 7 BUN 15 Creatinine 1.16 H Estim Creat Clear Calc 52.29 Est GFR (MDRD) Af Amer 60 Est GFR (MDRD) Non-Af 50 L BUN/Creatinine Ratio 12.9 Glucose 162 H Calcium 7.5 L Magnesium Total Bilirubin 0.70 Direct Bilirubin 0.31 H AST 11 L ALT 13 Alkaline Phosphatase 182 H Total Protein 5.5 L Albumin 1.7 L Globulin 3.8 Albumin/Globulin Ratio Blood Type Antibody Screen Crossmatch 10/10/18 10/10/18 10/10/18 12:10 17:40 17:40 WBC RBC Hgb 8.9 L Hct 27.2 L MCV MCH MCHC RDW RDW Differential Plt Count MPV Immature Gran % (Auto) Neut % (Auto) Lymph % (Auto) [place] % (Auto) Eos % (Auto) Baso % (Auto) Absolute Neuts (auto) Absolute Lymphs (auto) Total Counted Neutrophils % (Manual) Band Neutrophils % Lymphocytes % (Manual) Monocytes % (Manual) Eosinophils % (Manual) Metamyelocytes % Diff Path Review Platelet Estimate Hypochromasia Anisocytosis PT INR Sodium Potassium Chloride Carbon Dioxide Anion Gap BUN Creatinine Estim Creat Clear Calc Est GFR (MDRD) Af Amer Est GFR (MDRD) Non-Af BUN/Creatinine Ratio Glucose Calcium Magnesium 1.6 Total Bilirubin Direct Bilirubin AST ALT Alkaline Phosphatase Total Protein Albumin Globulin Albumin/Globulin Ratio Blood Type A POSITIVE Antibody Screen NEGATIVE Crossmatch See Detail 10/10/18 10/11/18 10/11/18 22:05 05:30 05:30 WBC 6.0 RBC 2.97 L Hgb 9.2 L 8.3 L Hct 28.1 L 25.7 L MCV 86.5 MCH 27.9 MCHC 32.3 RDW 16.5 H RDW Differential 51.3 H Plt Count 283 MPV 8.4 Immature Gran % (Auto) 0.300 Neut % (Auto) 72.9 H Lymph % (Auto) 16.3 L [place] % (Auto) 9.3 Eos % (Auto) 1.2 Baso % (Auto) 0.0 Absolute Neuts (auto) 4.4 Absolute Lymphs (auto) 0.98 Total Counted Pending Neutrophils % (Manual) Band Neutrophils % Lymphocytes % (Manual) Monocytes % (Manual) Eosinophils % (Manual) Metamyelocytes % Diff Path Review Platelet Estimate Hypochromasia Anisocytosis PT INR Sodium 143 Potassium 3.1 L Chloride 108 H Carbon Dioxide 27.0 Anion Gap 8 BUN 14 Creatinine 0.97 Estim Creat Clear Calc 60.43 Est GFR (MDRD) Af Amer 74 Est GFR (MDRD) Non-Af 61 BUN/Creatinine Ratio 14.5 Glucose 141 H Calcium 7.3 L Magnesium Total Bilirubin 0.50 Direct Bilirubin AST 11 L ALT 13 Alkaline Phosphatase 155 H Total Protein 4.6 L Albumin 1.3 L Globulin 3.3 Albumin/Globulin Ratio 0.4 L Blood Type Antibody Screen Crossmatch POC Glucose 10/10/18 10/10/18 22:09 17:52 POC Glucose 167 H 143 H Medical Necessity - Tobacco Use Smoking Status: Current some day smoker Tobacco Use: Cigarettes Assessment/Plan All Active Problems (Last Reviewed 09/21/18 @ 08:13 by Jennifer Allen) Diarrhea (Acute) Failure to thrive in adult (Acute) Shock, unspecified (Acute) GI bleed (Acute) Acute liver failure (Acute) Coagulopathy (Acute) UTI (urinary tract infection) (Resolved) Hepatic encephalopathy (Acute) Acute renal insufficiency (Acute) Acute renal failure (Acute) Lightheadedness (Acute) Unsteady gait (Acute) Headache (Acute) Chest pain (Acute) Weakness of both arms (Resolved) Numbness and tingling of right face (Resolved) Difficulty speaking (Resolved) NSTEMI (non-ST elevated myocardial infarction) (Resolved) Jaw pain (Resolved) nausea, abdominal pain, diarrhea with rectal bleeding-recent negative upper and lower endoscopy. Patient is being admitted for IV fluids and electrolyte correction. She has been on chronic narcotics will be continued to be given narcotics for her pain symptoms. I ordered an abdominal series to assess her bowel gas pattern fecal loading currently. The patient had a CT scan of the abdomen which demonstrated an pleural effusion but otherwise no abdominal pathology and her previous hospitalization area without other more specific findings I would not repeat CAT scan at this time. Stool cultures are pending anticipate these will be negative. Given the fact the patient Hemoccult positive stools, I would repeat upper and lower endoscopy. Currently recommend we correct her electrolytes and recheck her electrodes and sugars he has adequate urine output overnight. Also based on the degree of fecal loading we will decide how much bowel prep we should provide and then plan for upper and lower endoscopy likely morning. The patient stands the risks, benefits. Complications and possible alternatives to endoscopy and consents to those procedures. KUB demonstrates significant fecal loading (overflow incontinence) will start bowel prep this morning.
[2018-10-11 06:35] LABS: Differential Comment SCANNED; Hypochromasia 2+
[2018-10-11] MEDS: Dicyclomine 10 MG Capsule 20 MG PO ×3 (06:37→17:34)
[2018-10-11 06:51] LABS: Bedside Glucose 119 mg/dL (70-110)
[2018-10-11 09:15] VITALS: BP 145/59; PULSE 95; RESP 16; TEMP 36.5; O2SAT 98
[2018-10-11 09:33] VITALS: PULSE 95
[2018-10-11] MEDS: amLODIPine 5 MG Tablet PO (09:33)
[2018-10-11] MEDS: Sertraline 50 MG Tablet 150 MG PO (09:33)
[2018-10-11] MEDS: Electrolyte Solution/Peg's 4000 ML PO (09:33)
[2018-10-11] MEDS: busPIRone 15 MG TABLET PO (09:33)
[2018-10-11] MEDS: Metoprolol Tartrate 25 MG Tablet PO ×2 (09:33→21:22)
[2018-10-11 09:58] LABS: Pathologist Review Reviewed
[2018-10-11] MEDS: Ondansetron 4 MG/2 ML Vial IV (10:43)
--- NOTE | 2018-10-11 11:22 | CASEMGMT ---
Addendum entered by Nicole Fernandez 10/11/18 14:16: SW updated pt on acceptance to [facility] pending pre-cert. Pt states understanding. Original Note: Addendum entered by Nicole Fernandez 10/11/18 13:49: SW received call from Teagan at [facility] stating she is able to accept pt and will submit for pre-cert. Original Note: Addendum entered by Nicole Fernandez 10/11/18 13:11: SW faxed referral to [facility]. Original Note: Social Work Note SW spoke with PT/OT earlier today to see pt for Evaluation as pt is requesting SNF. SW reviewed notes, pt is requesting short term rehab at [facility]. SW spoke with RN, pt is not currently receiving dialysis. REE placed a call to Teagan at [facility] and left message informing her of referral and that once PT/OT works with pt then this worker will fax referral. REE informed Teagan at [facility] that once referral is faxed if she is able to accept pt to submit for pre-cert. SW to fax referral to [facility] once PT/OT evaluations are available. Plan: [facility] pending acceptance and pre-cert Nicole Fernandez MSW, BOX PRINTER
[2018-10-11 12:26] LABS: Bedside Glucose 159 mg/dL (70-110)
[2018-10-11] MEDS: oxyCODONE 5 MG Tablet 10 MG PO ×2 (12:52→21:22)
[2018-10-11] MEDS: Insulin Lispro 100 UNIT/ML INSULN.PEN SQ ×2 (12:54→21:31)
[2018-10-11 15:14] VITALS: BP 127/70; PULSE 83; RESP 18; TEMP 36.5; O2SAT 98
--- NOTE | 2018-10-11 16:10 | NURSING ---
since 929, staff has reminded and encouraged pt to drink the go-lytely. added flavoring and ice to make more enjoyable. assisted pt to set goals and educated on the importance of drinking go-lytely to clear out bowels for colonoscopy. explained that if bowels are not clear of stool, they will not be able to do colonoscopy and they won't be able to determine the source of bleeding. also encouraged pt to drink during the afternoon so that she won't need to drink it during the night. pt with poor response and has only managed 500ml, pain and nausea medications do not improve intake. called Dr Garcia to notify him of poor go-lytely intake, asked if he wanted NG placed or to adjust to different med. he declined both at this time and stated that we would continue go-lytely and if she is not clear for the procedure, they will need to try for colonoscopy another day. all of this was explained to pt and she stated she would continue trying to drink.
--- NOTE | 2018-10-11 16:52 | CHAPLAIN ---
Type of Pastoral Visit _x__ Initial Visit ___ Follow-up Visit ___ On-call Visit ___ General Patient Visit ___ Spiritual Assessment ___ Family Conference ___ Bereavement ___ Rapid Response ___ Code Blue ___ Other (describe below) Pastoral Care Referral From _x__ Patient ___ Family ___ Nurse ___ Physician ___ Drilling Foreman ___ Transistor Tester ___ Other (describe below) Sacrament/Intervention _x__ Active listening ___ Anointing ___ Anabaptism ___ Bereavement ___ Communion ___ Bhavani exploration ___ ___ Life review ___ Prayer ___ Reconciliation ___ Sacrament of Sick _x__ Supportive presence ___ Wedding ___ Other (describe below) Pastoral Comments
--- NOTE | 2018-10-11 17:30 | PN_ITS ---
Patient Problems: Active and Suspected Problems (Last Updated 10/11/18 @ 17:29 by Christian Melgoza DO) Diarrhea (Acute) Failure to thrive in adult (Acute) Subjective: Patient was seen and examined, she continues to complain of abdominal discomfort, she requests that her OxyIR be increased. Patient denies any nausea and vomiting. Patient is scheduled for a colonoscopy and upper endoscopy tomorrow. - Physical Exam General: Alert, Oriented x3, Cooperative, No apparent distress, Well developed, Well nourished HEENT: Atraumatic, PERRLA, EOMI, Normocephalic Oral: Moist Mucosa Neck: Supple, No JVD, No Nuchal Rigidity, Trachea Midline, Thyroid Normal Size and Texture Lungs: Clear to auscultation, Normal air movement, No rhonchi, No wheeze, No rales Cardiovascular: Regular rate, Regular Rhythm, Normal S1, Normal S2, No murmurs, No Ectopic Activity Abdomen: Bowel Sounds Present, Soft, Non Tender, Non-Distended, No hernias noted Extremities: No clubbing, No cyanosis, No edema, Capillary Refill Less than 3 Seconds Skin: No rashes, No breakdown Musculoskeletal: No Tenderness to Palpation of Joints or Extremities Neurological: Cranial nerves II-XII grossly intact, Neuro grossly intact, Sensory exam intact to light touch and pain, Coordination normal Psych/Mental Status: Normal Affect, Appropriate, Alert and oriented to time, place, person, mood and affect Vital Signs Temp Pulse Resp BP Pulse Ox 97.7 F L 83 18 127/70 H 98 10/11/18 15:14 10/11/18 15:14 10/11/18 15:14 10/11/18 15:14 10/11/18 15:14 Oxygen Delivery Method Room Air Weight: 83.4 kg Body Mass Index (BMI) 26.9 Finger Stick Blood Glucose 199 Intake and Output for Last 24 Hours 10/09/18 10/10/18 10/11/18 23:59 23:59 23:59 Intake Total 2447 / 2447 Output Total 500 / 500 Balance 1947 / 1947 Microbiology Past 72 Hours 10/10/18 13:30 Enteric Bacteriology - Final Stool 10/10/18 13:30 Stool Occult Blood (HEATH) - Final Stool Occult Blood Positive 10/10/18 13:30 C. difficile DNA Amplification - Final Stool Laboratory Tests Past 24 Hrs 10/10/18 10/10/18 10/10/18 12:10 17:40 17:40 WBC RBC Hgb 8.9 L Hct 27.2 L MCV MCH MCHC RDW RDW Differential Plt Count MPV Immature Gran % (Auto) Neut % (Auto) Lymph % (Auto) Randall % (Auto) Eos % (Auto) Baso % (Auto) Absolute Neuts (auto) Absolute Lymphs (auto) Total Counted Differential Comment Diff Path Review Reviewed Hypochromasia Sodium Potassium Chloride Carbon Dioxide Anion Gap BUN Creatinine Estim Creat Clear Calc Est GFR (MDRD) Af Amer Est GFR (MDRD) Non-Af BUN/Creatinine Ratio Glucose Calcium Total Bilirubin AST ALT Alkaline Phosphatase Total Protein Albumin Globulin Albumin/Globulin Ratio Blood Type A POSITIVE Antibody Screen NEGATIVE Crossmatch See Detail 10/10/18 10/11/18 10/11/18 22:05 05:30 05:30 WBC 6.0 RBC 2.97 L Hgb 9.2 L 8.3 L Hct 28.1 L 25.7 L MCV 86.5 MCH 27.9 MCHC 32.3 RDW 16.5 H RDW Differential 51.3 H Plt Count 283 MPV 8.4 Immature Gran % (Auto) 0.300 Neut % (Auto) 72.9 H Lymph % (Auto) 16.3 L Randall % (Auto) 9.3 Eos % (Auto) 1.2 Baso % (Auto) 0.0 Absolute Neuts (auto) 4.4 Absolute Lymphs (auto) 0.98 Total Counted Not Reportable Differential Comment SCANNED Diff Path Review Hypochromasia 2+ Sodium 143 Potassium 3.1 L Chloride 108 H Carbon Dioxide 27.0 Anion Gap 8 BUN 14 Creatinine 0.97 Estim Creat Clear Calc 60.43 Est GFR (MDRD) Af Amer 74 Est GFR (MDRD) Non-Af 61 BUN/Creatinine Ratio 14.5 Glucose 141 H Calcium 7.3 L Total Bilirubin 0.50 AST 11 L ALT 13 Alkaline Phosphatase 155 H Total Protein 4.6 L Albumin 1.3 L Globulin 3.3 Albumin/Globulin Ratio 0.4 L Blood Type Antibody Screen Crossmatch POC Glucose 10/11/18 10/11/18 10/10/18 12:14 06:35 22:09 POC Glucose 159 H 119 H 167 H 10/10/18 17:52 POC Glucose 143 H Medical Necessity - Tobacco Use Smoking Status: Current some day smoker Tobacco Use: Cigarettes Assessment/Plan All Active Problems (Last Updated 10/11/18 @ 17:29 by Christian Melgoza DO) Diarrhea (Acute) Failure to thrive in adult (Acute) Shock, unspecified (Resolved) GI bleed (Resolved) Acute liver failure (Resolved) Coagulopathy (Resolved) UTI (urinary tract infection) (Resolved) Hepatic encephalopathy (Resolved) Acute renal insufficiency (Resolved) Acute renal failure (Resolved) Lightheadedness (Resolved) Unsteady gait (Resolved) Headache (Resolved) Chest pain (Resolved) Weakness of both arms (Resolved) Numbness and tingling of right face (Resolved) Difficulty speaking (Resolved) NSTEMI (non-ST elevated myocardial infarction) (Resolved) Jaw pain (Resolved) #1 diarrhea-etiology unclear, patient will have an EGD and a colonoscopy tomorrow #2 abdominal pain-etiology unclear at this point, I have increased the patient's oral pain medications for now #3 generalized debility-patient wants to go to an extended care facility for short-term rehab, approval will need to be obtained from the patient's insurance carrier #4 hypokalemia-patient's potassium was 3.1 today, patient will need potassium replacement, recheck [facility] #5 coronary artery disease #6 chronic kidney disease stage III #7 hematochezia-etiology unclear Code Visit OBSV E&M: 22971 Subsequent observation care L3
[2018-10-11 17:41] LABS: Bedside Glucose 130 mg/dL (70-110)
--- NOTE | 2018-10-11 20:01 | NURSING ---
Answered pt's call light. Pt states she can not drink any more of the go-lytely prep, she feels too bloated and painful, she is tired a wants to go to bed I spoke with pt for 10+ minutes regarding reason she needs to drink go-lytely and reason for doing colonoscopy, pt understands and is still refusing. Dr. Garcia paged.
--- NOTE | 2018-10-11 20:49 | NURSING ---
Told pt Dr. Garcia is still planning on taking her for scope in AM. Advised her to try and cont. to drink the prep so she would not have to come back.
[2018-10-11 21:22] VITALS: BP 124/59; PULSE 88; RESP 18; TEMP 36.6; O2SAT 99
[2018-10-11] MEDS: Atorvastatin Calcium 20 MG Tablet PO (21:22)
[2018-10-11] MEDS: clonazePAM 0.5 MG Tablet PO (21:22)
[2018-10-11 21:36] LABS: Bedside Glucose 163 mg/dL (70-110)
[2018-10-12] VITALS (10 sets, daily range): BP systolic 95–156; BP diastolic 52–70; PULSE 83–92; RESP 16–18; TEMP 36.2–37.3; O2SAT 93–100; BMI 27.1
--- NOTE | 2018-10-12 05:00 | EKG12_ITS ---
Test Reason : AM EKG Blood Pressure : / mmHG Vent. Rate : 090 BPM Atrial Rate : 090 BPM P-R Int : 196 ms QRS Dur : 078 ms QT Int : 390 ms P-R-T Axes : 080 008 027 degrees QTc Int : 477 ms Normal sinus rhythm Septal infarct (cited on or before 12-OCT-2018) Abnormal ECG When compared with ECG of 27-JUL-2018 10:05, CO interval has decreased QRS duration has decreased Confirmed by HANNAH THORNTON ([id number]), website/blog editor NOLBERTO LAST ([id number]) on 10/16/2018 1:39:30 PM Referred By: Crystal Earl Confirmed By:ALMA THORNTON
[2018-10-12 05:56] LABS: Bedside Glucose 147 mg/dL (70-110)
--- NOTE | 2018-10-12 06:30 | EGD_PTH ---
PATIENT: CONI WEBER LOC: MS3 U#:[id number] AGE/SX: 63/F ROOM: [facility] [place] RE10/10/[address]: Dr. Christian Melgoza DO : 1955 BED: 1 DIS: 10/13/2018 SPEC #: [id number] RECD: 10/12/18 08:10 STATUS: XENA REMike #: [id number] AAMIR: 10/12/18 06:[address]: Gary Garcia DEPT: SURGICAL PATHOLOGY RECD BY: Percy Zhang ENTERED: 10/12/18 11:03 SP TYPE: EGD BIOPSY [facility] DR: MD Dr. Crystal De Jesus MD Dr. Mark Tereletsky, DO Tissues: A - Jejunum, NOS B - Gastric mucous membrane C - Ascending colon D - SPLENIC FLEXURE E - Descending colon F - Sigmoid colon biopsy Procedures: Surgery Specimen Level IV HEADER OPERATION: Colonoscopy, EGD ([facility] [place] PRE-OP DIAGNOSIS: GI bleed, chronic anemia, diarrhea TISSUE SUBMITTED: A - Jejunal biopsy, B - Antral biopsy for histo and H. pylori, C - Ascending colon random biopsy, D - Splenic flexure random biopsy, E - Descending colon biopsy, rule out colitis, F - Sigmoid biopsy MICROSCOPIC DIAGNOSIS A. Jejunal biopsy: A fragment of small intestinal mucosa, no pathologic diagnosis. B. Antral biopsy: Mild gastritis. See microscopic description and comment. C. Ascending colon, random biopsy: Fragments of colonic mucosa, no pathologic diagnosis. D. Splenic flexure, biopsy: Chronic active colitis with moderate activity. No evidence of dysplasia. See microscopic description and comment. E. Descending colon, biopsy: Chronic active colitis with moderate activity. No evidence of dysplasia. See microscopic description and comment. F. Sigmoid colon, biopsy: Chronic active colitis with moderate activity. No evidence of dysplasia. See microscopic description and comment. SJ:liz 10/13/18 COMMENT B. The results of immunohistochemistry for Helicobacter pylori will be reported separately ([id number]). Correlation with clinical, endoscopic findings and appropriate follow up are necessary. The findings are consistent with inflammatory bowel disease (favors ulcerative colitis). This case was discussed with Dr. Melgoza on 10/13/18. MICROSCOPIC DESCRIPTION Slides are reviewed. B. The specimen shows fragments of gastric mucosa with chronic inflammatory cell infiltrates in the lamina propria consisting of lymphocytes and plasma cells, consistent with mild chronic gastritis. D-F. All three specimens show similar morphologic features. The specimens show fragments of colonic mucosa with acute and chronic inflammatory cell infiltrates in the lamina propria, mild glandular distortion, cryptitis and crypt abscesses. Granulomas are not seen. No evidence of dysplasia. GROSS DESCRIPTION A - Received in fixative is one container labeled with the patient's name and designated jejunal biopsy. The specimen consists of one irregular fragment of light veras soft tissue that measures 0.4 x 0.3 x 0.1 cm. The specimen is totally submitted in one cassette. B - Received in fixative is one container labeled with the patient's name and designated antral biopsy. The specimen consists of one irregular fragment of light veras soft tissue that measures 0.5 x 0.3 x 0.1 cm. The specimen is totally submitted in one cassette. C - Received in fixative is one container labeled with the patient's name and designated ascending colon random biopsy. The specimen consists of multiple irregular fragments of light veras soft tissue that in aggregate measure 0.6 x 0.2 x 0.1 cm. The specimen is totally submitted in one cassette. D - Received in fixative is one container labeled with the patient's name and designated splenic flexure random biopsy. The specimen consists of two irregular fragments of light veras soft tissue that in aggregate measure 0.5 x 0.4 x 0.1 cm. The specimen is totally submitted in one cassette. E - Received in fixative is one container labeled with the patient's name and designated descending colon biopsy. The specimen consists of one irregular fragment of light veras soft tissue that measures 0.3 x 0.2 x 0.1 cm. The specimen is totally submitted in one cassette. F - Received in fixative is one container labeled with the patient's name and designated sigmoid biopsy. The specimen consists of multiple irregular fragments of light veras soft tissue that in aggregate measure 0.4 x 0.3 x 0.1 cm. The specimen is totally submitted in one cassette. / SJ:rg 10/12/18 TC:2 CPT: 00515 x6
--- NOTE | 2018-10-12 06:30 | IMM_PTH ---
PATIENT: CONI WEBER LOC: MS3 U#:[id number] AGE/SX: 63/F ROOM: [facility] RE10/10/[address]: Dr. Christian Melgoza DO : 1955 BED: 1 DIS: 10/13/2018 SPEC #: [id number] RECD: 10/12/18 12:47 STATUS: SOUTim REQ #: [id number] AAMIR: 10/12/18 06:[address]: Gary Garcia DEPT: IMMUNOHISTOCHEMISTRY RECD BY: Telma Maravilla ENTERED: 10/12/18 12:47 SP TYPE: IMMUNO OTHR DR: MD Dr. Crystal De Jesus MD Dr. Mark Tereletsky, DO Tissues: B - Stomach, NOS Procedures: H Pylori (initial) PHYSICIAN & INSTITUTION [place] [id number] SPECIMEN INFORMATION: Tissue Source: B - Antral biopsy Clinical Info: GI bleed, chronic anemia, diarrhea Specimen Number: [id number] CPT code: 24969 METHODOLOGY: Deparaffinized sections of prefer/formalin-fixed tissue or PAP/DQ stained slides are incubated with monoclonal/polyclonal antibodies/oligonucleotide probes. Localization is made via biotin free immunoperoxidase method. Appropriate controls are performed and reacted as expected. Results on target cell population are indicated in the following table: RESULTS: ANTIBODY / CLONE RESULT Block B H Pylori (polyclonal) negative These tests were developed and their performance characteristics determined by [facility]. They may not have been cleared or approved by the [place].S. Food and Drug Administration. The FDA has determined that such clearance or approval is not necessary. INTERPRETATION: B. Antral biopsy: Negative for Helicobacter pylori organisms. SJ:liz 10/13/18
[2018-10-12 06:55] LABS: Anion Gap 8 (5-15); BUN 11 mg/dL (7-18); BUN/Creat Ratio 13.1 RATIO (10-20); Calcium,Total 7.3 mg/dL (8.5-10.1); Chloride 112 mmol/L (98-107); Creatinine, Serum 0.84 mg/dL (0.55-1.02); EST Glomerular Filtration Rate 73 mL/min (>60); Est Glom Filt Rate - Afr Amer 88 mL/min (>60); Estimated Creatinine Clearance 69.78 ml/min; Glucose 140 mg/dL (74-106); Potassium 3.9 mmol/L (3.5-5.1); Sodium Level 138 mmol/L (136-145)
--- NOTE | 2018-10-12 07:18 | OP.ENDO_ITS ---
10/12/2018 Crystal Earl [address] [place] [address] Re : Upper GI endoscopy procedure for Ivon Gonzalez Dear Dr. Earl This procedure was performed on September. My impressions and recommendations are as follows: Impressions : - Normal examined jejunum. Biopsied. - Normal. - Gastritis. Biopsied. - Normal esophagus. Recommendations : - Return patient to [facility] for ongoing care. - Continue present medications. My findings are described in the full procedure note, which is enclosed. If I can be of further assistance, please feel free to contact me at Doctor phone number(s): , Work: . Sincerely, Gary Garcia MD 10/12/2018 7:17:46 AM This report has been signed electronically.
--- NOTE | 2018-10-12 07:21 | OP.ENDO_ITS ---
10/12/2018 Crystal Earl [address] [place] [address] Re : Colonoscopy procedure for Ivon Gonzalez Dear Dr. Earl This procedure was performed on September. My impressions and recommendations are as follows: Impressions : - Preparation of the colon was poor. - The cecum is normal. - The ascending colon is normal. Biopsied. - The transverse colon is normal. - Segmental mild inflammation was found at the splenic flexure secondary to colitis. Biopsied. - Segmental moderate inflammation was found in the sigmoid colon and in the descending colon secondary to colitis. Biopsied. - The rectum is normal. Recommendations : - Return patient to hospital [facility] for ongoing care. - Repeat colonoscopy is recommended. The colonoscopy date will be determined after pathology results from today's exam become available for review. - Continue present medications. My findings are described in the full procedure note, which is enclosed. If I can be of further assistance, please feel free to contact me at Doctor phone number(s): , Work: . Sincerely, Gary Garcia MD 10/12/2018 7:21:20 AM This report has been signed electronically.
--- NOTE | 2018-10-12 07:24 | PN.SURG_ITS ---
Patient Problems: Active and Suspected Problems (Last Updated 10/11/18 @ 17:29 by Christian Melgoza DO) Diarrhea (Acute) Failure to thrive in adult (Acute) Subjective: continued diarrhea and cramping abdominal pain - Physical Exam Lungs: Clear to auscultation, Normal air movement Cardiovascular: Regular rate, No murmurs Abdomen: Bowel Sounds Present, Soft, Tender - diffusely without peritoneal signs Vital Signs Temp Pulse Resp BP Pulse Ox 97.9 F 90 18 145/59 H 98 10/12/18 05:43 10/12/18 05:43 10/12/18 05:43 10/12/18 05:43 10/12/18 05:43 Oxygen Delivery Method Room Air Weight: 83.4 kg Body Mass Index (BMI) 27.1 Finger Stick Blood Glucose 199 Intake and Output for Last 24 Hours 10/10/18 10/11/18 10/12/18 23:59 23:59 23:59 Intake Total 3239 / 3239 1560 / 1560 Output Total 503 / 503 Balance 2736 / 2736 1560 / 1560 Microbiology Past 72 Hours 10/10/18 13:30 Enteric Bacteriology - Final Stool 10/10/18 13:30 Stool Occult Blood (HEATH) - Final Stool Occult Blood Positive 10/10/18 13:30 C. difficile DNA Amplification - Final Stool Laboratory Tests Past 24 Hrs 10/10/18 10/12/18 10/12/18 12:10 05:58 05:58 WBC Cancelled Corrected WBC Cancelled RBC Cancelled Hgb Cancelled Hct Cancelled MCV Cancelled MCH Cancelled MCHC Cancelled RDW Cancelled RDW Differential Cancelled Plt Count Cancelled MPV Cancelled Immature Gran % (Auto) Cancelled Neut % (Auto) Cancelled Lymph % (Auto) Cancelled [place] % (Auto) Cancelled Eos % (Auto) Cancelled Baso % (Auto) Cancelled Absolute Neuts (auto) Cancelled Absolute Lymphs (auto) Cancelled Total Counted Cancelled Neutrophils % (Manual) Cancelled Band Neutrophils % Cancelled Lymphocytes % (Manual) Cancelled Monocytes % (Manual) Cancelled Eosinophils % (Manual) Cancelled Basophils % (Manual) Cancelled Metamyelocytes % Cancelled Myelocytes % Cancelled Promyelocytes % Cancelled Blast Cells % Cancelled Plasma Cell % (Manual) Cancelled Other Cells % Cancelled Nucleated RBCs/100 WBC Cancelled Differential Comment Cancelled Diff Path Review Reviewed Cancelled Hypersegmented Neuts Cancelled Atypical Lymphocytes Cancelled Reactive Lymphocytes Cancelled Smudge Cells Cancelled Toxic Granulation Cancelled Toxic Vacuolation Cancelled Dohle Bodies Cancelled Ana Rods Cancelled Platelet Estimate Cancelled Plt Morphology Comment Cancelled RBC Morphology Cancelled Polychromasia Cancelled Hypochromasia Cancelled Poikilocytosis Cancelled Basophilic Stippling Cancelled Anisocytosis Cancelled Microcytosis Cancelled Macrocytosis Cancelled Spherocytes Cancelled Sickle Cells Cancelled Target Cells Cancelled Tear Drop Cells Cancelled Ovalocytes Cancelled Stomatocytes Cancelled Andre-Coggon Bodies Cancelled Rubi Cells Cancelled Bite Cells Cancelled Crenated Cell Cancelled Acanthocytes (Spur) Cancelled Rouleaux Cancelled Schistocytes Cancelled Sodium 138 Potassium 3.9 Chloride 112 H Carbon Dioxide 18.0 L Anion Gap 8 BUN 11 Creatinine 0.84 Estim Creat Clear Calc 69.78 Est GFR (MDRD) Af Amer 88 Est GFR (MDRD) Non-Af 73 BUN/Creatinine Ratio 13.1 Glucose 140 H Hemoglobin A1c Calcium 7.3 L 10/12/18 05:58 WBC Corrected WBC RBC Hgb Hct MCV MCH MCHC RDW RDW Differential Plt Count MPV Immature Gran % (Auto) Neut % (Auto) Lymph % (Auto) [place] % (Auto) Eos % (Auto) Baso % (Auto) Absolute Neuts (auto) Absolute Lymphs (auto) Total Counted Neutrophils % (Manual) Band Neutrophils % Lymphocytes % (Manual) Monocytes % (Manual) Eosinophils % (Manual) Basophils % (Manual) Metamyelocytes % Myelocytes % Promyelocytes % Blast Cells % Plasma Cell % (Manual) Other Cells % Nucleated RBCs/100 WBC Differential Comment Diff Path Review Hypersegmented Neuts Atypical Lymphocytes Reactive Lymphocytes Smudge Cells Toxic Granulation Toxic Vacuolation Dohle Bodies Ana Rods Platelet Estimate Plt Morphology Comment RBC Morphology Polychromasia Hypochromasia Poikilocytosis Basophilic Stippling Anisocytosis Microcytosis Macrocytosis Spherocytes Sickle Cells Target Cells Tear Drop Cells Ovalocytes Stomatocytes Andre-Coggon Bodies [place] Cells Bite Cells Crenated Cell Acanthocytes (Spur) Rouleaux Schistocytes Sodium Potassium Chloride Carbon Dioxide Anion Gap BUN Creatinine Estim Creat Clear Calc Est GFR (MDRD) Af Amer Est GFR (MDRD) Non-Af BUN/Creatinine Ratio Glucose Hemoglobin A1c Pending Calcium POC Glucose 10/12/18 10/11/18 10/11/18 05:50 21:30 17:35 POC Glucose 147 H 163 H 130 H 10/11/18 12:14 POC Glucose 159 H Medical Necessity - Tobacco Use Smoking Status: Current some day smoker Tobacco Use: Cigarettes Assessment/Plan All Active Problems (Last Updated 10/11/18 @ 17:29 by Christian Melgoza, DO) Diarrhea (Acute) Failure to thrive in adult (Acute) Shock, unspecified (Resolved) GI bleed (Resolved) Acute liver failure (Resolved) Coagulopathy (Resolved) UTI (urinary tract infection) (Resolved) Hepatic encephalopathy (Resolved) Acute renal insufficiency (Resolved) Acute renal failure (Resolved) Lightheadedness (Resolved) Unsteady gait (Resolved) Headache (Resolved) Chest pain (Resolved) Weakness of both arms (Resolved) Numbness and tingling of right face (Resolved) Difficulty speaking (Resolved) NSTEMI (non-ST elevated myocardial infarction) (Resolved) Jaw pain (Resolved) nausea, abdominal pain, diarrhea with rectal bleeding-splenic flexure to sigmoid colon colitis Patient is being admitted for IV fluids and electrolyte correction. She has been on chronic narcotics will be continued to be given narcotics for her pain symptoms. I ordered an abdominal series to assess her bowel gas pattern fecal loading currently. The patient had a CT scan of the abdomen which demonstrated an pleural effusion but otherwise no abdominal pathology and her previous hospitalization area without other more specific findings I would not repeat CAT scan at this time. Stool cultures are pending anticipate these will be negative. Given the fact the patient Hemoccult positive stools, I would repeat upper and lower endoscopy. Currently recommend we correct her electrolytes and recheck her electrodes and sugars he has adequate urine output overnight. Also based on the degree of fecal loading we will decide how much bowel prep we should provide and then plan for upper and lower endoscopy likely morning. The patient stands the risks, benefits. Complications and possible alternatives to endoscopy and consents to those procedures. KUB yesterday demonstrates significant fecal loading more so in the right colon (overflow incontinence). Upper endoscopy demonstrated minimal gastritis. lower endoscopy demonstrated significant colitis from the splenic flexure to the distal sigmoid. multiple biopsies were taken. would start oral flagyl and carafate
[2018-10-12 07:30] LABS: Hemoglobin A1c 5.4 % (4.2-6.3)
--- NOTE | 2018-10-12 07:38 | PCA ---
pt off floor
[2018-10-12] MEDS: oxyCODONE 5 MG Tablet 10 MG PO ×2 (08:28→15:11)
[2018-10-12] MEDS: Dicyclomine 10 MG Capsule 20 MG PO ×3 (08:29→16:12)
[2018-10-12 08:30] LABS: Absolute Lymphocyte Count 0.84 X10^3/ul (0.83-4.51); Absolute Neutrophil Count 3.9 X10^3/uL (2.0-7.7); Eosinophil# 0.07 X10^3/uL; Eosinophils% 1.3 % (0-5); Hematocrit 24.6 % (37-47); Lymphocyte # 0.84 X10^3/ul (4.0); Lymphocyte % 16.1 % (19-41); Mean Corp Hgb Conc 32.5 g/gl (32-36); Mean Platelet Vol. 8.5 fl (6.2-12.0); Monocyte% 7.7 % (0-10); Neutrophil # 3.89 X10^3/uL (2.7-7.7); Neutrophil % 74.7 % (47-70); Platelet Count 275 K/mm3 (150-450); RBC Distribution Width CV 16.7 % (11.6-14.6); RBC Distribution Width SD 51.5 fl (35.1-43.9); Red Blood Count 2.86 M/mm3 (4.2-5.4); White Blood Count 5.2 K/mm3 (4.4-11.0)
[2018-10-12] MEDS: Metoprolol Tartrate 25 MG Tablet PO (08:30)
[2018-10-12] MEDS: Sertraline 50 MG Tablet 150 MG PO (08:30)
[2018-10-12 08:33] LABS: Differential Indicated SCAN CRITERIA MET; POSITIVE COUNT NO; POSITIVE DIFFERENTIAL NO; POSITIVE MORPHOLOGY YES
[2018-10-12] MEDS: busPIRone 15 MG TABLET PO ×2 (08:42→22:10)
[2018-10-12] MEDS: amLODIPine 5 MG Tablet PO (08:42)
[2018-10-12] MEDS: 0.9% NaCl Peripheral Flush Adult/Peds IV ×2 (08:47→15:09)
[2018-10-12] MEDS: Sucralfate 1 GM Tablet PO ×3 (11:19→22:09)
[2018-10-12 11:35] LABS: Bedside Glucose 136 mg/dL (70-110)
--- NOTE | 2018-10-12 12:11 | PCM.PROGNOTE ---
Patient Problems: Active and Suspected Problems (Last Updated 10/11/18 @ 17:29 by Christian Melgoza DO) Diarrhea (Acute) Failure to thrive in adult (Acute) Subjective: Pt c/o diarrhea, cramping, all over pain. Denies specific abdominal pain. No nausea/vomiting. Tolerating clears. No fever/chills. Did not tolerate very much prep at all. Took one drink of it. - Physical Exam General: Alert, Oriented x3, Cooperative HEENT: Atraumatic, PERRLA, EOMI, Normocephalic Neck: Supple, No JVD, Negative Carotid Bruits Lungs: Clear to auscultation, Normal air movement Cardiovascular: Regular rate, No murmurs Abdomen: Bowel Sounds Present, Soft, Non Tender Extremities: No edema, Capillary Refill Less than 3 Seconds Skin: No rashes, No breakdown Musculoskeletal: No Tenderness to Palpation of Joints or Extremities Neurological: Cranial nerves II-XII grossly intact Psych/Mental Status: Normal Affect, Appropriate, Alert and oriented to time, place, person, mood and affect Vital Signs Temp Pulse Resp BP Pulse Ox 97.1 F L 88 16 132/60 H 98 10/12/18 08:20 10/12/18 08:30 10/12/18 08:20 10/12/18 08:20 10/12/18 08:20 Oxygen Delivery Method Room Air Weight: 183 lb 13.848 oz Body Mass Index (BMI) 27.1 Finger Stick Blood Glucose 199 Intake and Output for Last 24 Hours 10/10/18 10/11/18 10/12/18 23:59 23:59 23:59 Intake Total 3239 / 3239 2816 / 2816 Output Total 503 / 503 Balance 2736 / 2736 2816 / 2816 Microbiology Past 72 Hours 10/10/18 13:30 Enteric Bacteriology - Final Stool 10/10/18 13:30 Stool Occult Blood (HEATH) - Final Stool Occult Blood Positive 10/10/18 13:30 C. difficile DNA Amplification - Final Stool Laboratory Tests Past 24 Hrs 10/12/18 10/12/18 10/12/18 05:58 05:58 05:58 WBC Cancelled Corrected WBC Cancelled RBC Cancelled Hgb Cancelled Hct Cancelled MCV Cancelled MCH Cancelled MCHC Cancelled RDW Cancelled RDW Differential Cancelled Plt Count Cancelled MPV Cancelled Immature Gran % (Auto) Cancelled Neut % (Auto) Cancelled Lymph % (Auto) Cancelled [place] % (Auto) Cancelled Eos % (Auto) Cancelled Baso % (Auto) Cancelled Absolute Neuts (auto) Cancelled Absolute Lymphs (auto) Cancelled Total Counted Cancelled Neutrophils % (Manual) Cancelled Band Neutrophils % Cancelled Lymphocytes % (Manual) Cancelled Monocytes % (Manual) Cancelled Eosinophils % (Manual) Cancelled Basophils % (Manual) Cancelled Metamyelocytes % Cancelled Myelocytes % Cancelled Promyelocytes % Cancelled Blast Cells % Cancelled Plasma Cell % (Manual) Cancelled Other Cells % Cancelled Nucleated RBCs/100 WBC Cancelled Differential Comment Cancelled Diff Path Review Cancelled Hypersegmented Neuts Cancelled Atypical Lymphocytes Cancelled Reactive Lymphocytes Cancelled Smudge Cells Cancelled Toxic Granulation Cancelled Toxic Vacuolation Cancelled Dohle Bodies Cancelled Ana Rods Cancelled Platelet Estimate Cancelled Plt Morphology Comment Cancelled RBC Morphology Cancelled Polychromasia Cancelled Hypochromasia Cancelled Poikilocytosis Cancelled Basophilic Stippling Cancelled Anisocytosis Cancelled Microcytosis Cancelled Macrocytosis Cancelled Spherocytes Cancelled Sickle Cells Cancelled Target Cells Cancelled Tear Drop Cells Cancelled Ovalocytes Cancelled Stomatocytes Cancelled Andre-[place] Bodies Cancelled Ethel Cells Cancelled Bite Cells Cancelled Crenated Cell Cancelled Acanthocytes (Spur) Cancelled Rouleaux Cancelled Schistocytes Cancelled Sodium 138 Potassium 3.9 Chloride 112 H Carbon Dioxide 18.0 L Anion Gap 8 BUN 11 Creatinine 0.84 Estim Creat Clear Calc 69.78 Est GFR (MDRD) Af Amer 88 Est GFR (MDRD) Non-Af 73 BUN/Creatinine Ratio 13.1 Glucose 140 H Hemoglobin A1c 5.4 Calcium 7.3 L 10/12/18 08:15 WBC 5.2 Corrected WBC RBC 2.86 L Hgb 8.0 L Hct 24.6 L MCV 86.0 MCH 28.0 MCHC 32.5 RDW 16.7 H RDW Differential 51.5 H Plt Count 275 MPV 8.5 Immature Gran % (Auto) 0.200 Neut % (Auto) 74.7 H Lymph % (Auto) 16.1 L [place] % (Auto) 7.7 Eos % (Auto) 1.3 Baso % (Auto) 0.0 Absolute Neuts (auto) 3.9 Absolute Lymphs (auto) 0.84 Total Counted Not Reportable Neutrophils % (Manual) Band Neutrophils % Lymphocytes % (Manual) Monocytes % (Manual) Eosinophils % (Manual) Basophils % (Manual) Metamyelocytes % Myelocytes % Promyelocytes % Blast Cells % Plasma Cell % (Manual) Other Cells % Nucleated RBCs/100 WBC Differential Comment Diff Path Review Hypersegmented Neuts Atypical Lymphocytes Reactive Lymphocytes Smudge Cells Toxic Granulation Toxic Vacuolation Dohle Bodies Ana Rods Platelet Estimate Plt Morphology Comment RBC Morphology Polychromasia Hypochromasia Poikilocytosis Basophilic Stippling Anisocytosis Microcytosis Macrocytosis Spherocytes Sickle Cells Target Cells Tear Drop Cells Ovalocytes Stomatocytes Andre-[place] Bodies Ethel Cells Bite Cells Crenated Cell Acanthocytes (Spur) Rouleaux Schistocytes Sodium Potassium Chloride Carbon Dioxide Anion Gap BUN Creatinine Estim Creat Clear Calc Est GFR (MDRD) Af Amer Est GFR (MDRD) Non-Af BUN/Creatinine Ratio Glucose Hemoglobin A1c Calcium POC Glucose 10/12/18 10/12/18 10/11/18 11:18 05:50 21:30 POC Glucose 136 H 147 H 163 H 10/11/18 10/11/18 17:35 12:14 POC Glucose 130 H 159 H Medical Necessity - Tobacco Use Smoking Status: Current some day smoker Tobacco Use: Cigarettes Assessment/Plan All Active Problems (Last Updated 10/11/18 @ 17:29 by Christian Melgoza DO) Diarrhea (Acute) Failure to thrive in adult (Acute) Shock, unspecified (Resolved) GI bleed (Resolved) Acute liver failure (Resolved) Coagulopathy (Resolved) UTI (urinary tract infection) (Resolved) Hepatic encephalopathy (Resolved) Acute renal insufficiency (Resolved) Acute renal failure (Resolved) Lightheadedness (Resolved) Unsteady gait (Resolved) Headache (Resolved) Chest pain (Resolved) Weakness of both arms (Resolved) Numbness and tingling of right face (Resolved) Difficulty speaking (Resolved) NSTEMI (non-ST elevated myocardial infarction) (Resolved) Jaw pain (Resolved) 1. Acute blood loss anemia 2/2 acute GI bleed - s/p EGD/colon. Found to have gastritis and colitis. Continue flagyl, cipro, protonix, carafate. Advance diet per gen surgery. Prep was poor. will need f/u for repeat colon. bx taken - pending. Plavix held. 2. CKDIII - stable 3. CAD - statin, plavix (held), metoprolol 4. hyperglycemia - a1c 5.4 5. HTN - home meds 6. Anx/dep - buspar, klonopin, zoloft 7. nicotine abuse - patch/gum DVT ppx: SCDs DC planning: advance diet, monitor H/H. This patient was seen by Mitchell Pena PA-C under the supervision of Doctor Melgoza.
--- NOTE | 2018-10-12 12:18 | CASEMGMT ---
Addendum entered by Nicole Fernandez 10/12/18 14:04: REE placed a call to Teagan at [facility]. Teagan states she still hasn't heard anything regarding pre-cert for pt. SW to continue to follow. Original Note: Social Work Note REE faxed updated clinicals to Teagan at [facility]. REE wrote on fax cover sheet that pt is medically cleared for discharge once pre-cert has been obtained. Plan: [facility] pending pre-cert Nicole Fernandez PARTS ROOM ASSISTANT, CORNER FORMER
--- NOTE | 2018-10-12 14:44 | CASEMGMT ---
Social Work Note SW received message from Teagan at [facility] stating pre-cert has been obtained and pt is able to discharge today. REE completed PAS/RR in [facility]. Physician updated. Per Physician, pt is not medically cleared for discharge today. REE placed a call to Teagan at [facility], updated her that pt is not medically cleared for discharge today. Teagan states pre-cert is still good for tomorrow. Plan: Likely discharge to [facility] tomorrow skilled Nicole Fernandez NEUROSURGERY PHYSICIAN, SCHOOL TRAFFIC SUPERVISOR
[2018-10-12] MEDS: Famotidine 20 MG Tablet PO ×2 (15:09→22:09)
[2018-10-12] MEDS: metroNIDAZOLE 500 MG Tablet PO ×2 (15:09→22:09)
[2018-10-12 16:26] LABS: Bedside Glucose 140 mg/dL (70-110)
[2018-10-12] MEDS: Ensure Clear 120 ML Liquid PO (18:20)
[2018-10-12 22:06] LABS: Bedside Glucose 158 mg/dL (70-110)
[2018-10-12] MEDS: clonazePAM 0.5 MG Tablet PO (22:09)
[2018-10-12] MEDS: Atorvastatin Calcium 20 MG Tablet PO (22:10)
[2018-10-12] MEDS: Insulin Lispro 100 UNIT/ML INSULN.PEN SQ (22:10)
[2018-10-13 03:15] VITALS: BP 122/46; PULSE 89; RESP 18; TEMP 36.6; O2SAT 93
[2018-10-13] MEDS: Dicyclomine 10 MG Capsule 20 MG PO ×2 (06:08→10:22)
[2018-10-13] MEDS: metroNIDAZOLE 500 MG Tablet PO ×2 (06:08→14:05)
[2018-10-13] MEDS: Sucralfate 1 GM Tablet PO ×2 (06:08→10:22)
[2018-10-13] MEDS: oxyCODONE 5 MG Tablet 10 MG PO (06:09)
[2018-10-13 06:39] LABS: Hematocrit 25.8 % (37-47); Hemoglobin 8.2 g/dl (12.0-15.0); Mean Corp Hgb Conc 31.8 g/gl (32-36); Mean Corpuscular Hgb 27.6 pg (27.0-32.0); Mean Corpuscular Volume 86.9 fL (81-99); Mean Platelet Vol. 8.9 fl (6.2-12.0); Platelet Count 307 K/mm3 (150-450); RBC Distribution Width CV 16.4 % (11.6-14.6); RBC Distribution Width SD 49.3 fl (35.1-43.9); Red Blood Count 2.97 M/mm3 (4.2-5.4); White Blood Count 5.5 K/mm3 (4.4-11.0)
[2018-10-13 06:54] LABS: Scan Indicated on CBC? Y/N NO
[2018-10-13 07:00] LABS: Bedside Glucose 139 mg/dL (70-110)
--- NOTE | 2018-10-13 07:07 | PN.SURG_ITS ---
Patient Problems: Active and Suspected Problems (Last Updated 10/11/18 @ 17:29 by Christian Melgoza DO) Diarrhea (Acute) Failure to thrive in adult (Acute) Subjective: still diarrhea with some pink tinge still abdominal cramping and pain - Physical Exam General: Alert, Oriented x3 Lungs: Clear to auscultation, Normal air movement Cardiovascular: Regular rate, Regular Rhythm Abdomen: Bowel Sounds Present, Soft, Tender - mildly on left side without peritoneal signs Vital Signs Temp Pulse Resp BP Pulse Ox 97.8 F 89 18 122/46 H 93 10/13/18 03:15 10/13/18 03:15 10/13/18 03:15 10/13/18 03:15 10/13/18 03:15 Oxygen Delivery Method Room Air Weight: 86.6 kg Body Mass Index (BMI) 27.1 Finger Stick Blood Glucose 199 Intake and Output for Last 24 Hours 10/11/18 10/12/18 10/13/18 23:59 23:59 23:59 Intake Total 3239 / 3239 3826 / 3826 749 / 749 Output Total 503 / 503 Balance 2736 / 2736 3826 / 3826 749 / 749 Microbiology Past 72 Hours 10/10/18 13:30 Enteric Bacteriology - Final Stool 10/10/18 13:30 Stool Occult Blood (HEATH) - Final Stool Occult Blood Positive 10/10/18 13:30 C. difficile DNA Amplification - Final Stool Laboratory Tests Past 24 Hrs 10/12/18 10/12/18 10/13/18 05:58 08:15 05:23 WBC 5.2 5.5 RBC 2.86 L 2.97 L Hgb 8.0 L 8.2 L Hct 24.6 L 25.8 L MCV 86.0 86.9 MCH 28.0 27.6 MCHC 32.5 31.8 L RDW 16.7 H 16.4 H RDW Differential 51.5 H 49.3 H Plt Count 275 307 MPV 8.5 8.9 Immature Gran % (Auto) 0.200 Neut % (Auto) 74.7 H Lymph % (Auto) 16.1 L [place] % (Auto) 7.7 Eos % (Auto) 1.3 Baso % (Auto) 0.0 Absolute Neuts (auto) 3.9 Absolute Lymphs (auto) 0.84 Total Counted Not Reportable Hemoglobin A1c 5.4 POC Glucose 10/13/18 10/12/18 10/12/18 06:56 22:02 16:10 POC Glucose 139 H 158 H 140 H 10/12/18 11:18 POC Glucose 136 H Medical Necessity - Tobacco Use Smoking Status: Current some day smoker Tobacco Use: Cigarettes Assessment/Plan All Active Problems (Last Updated 10/11/18 @ 17:29 by Christian Melgoza, DO) Diarrhea (Acute) Failure to thrive in adult (Acute) Shock, unspecified (Resolved) GI bleed (Resolved) Acute liver failure (Resolved) Coagulopathy (Resolved) UTI (urinary tract infection) (Resolved) Hepatic encephalopathy (Resolved) Acute renal insufficiency (Resolved) Acute renal failure (Resolved) Lightheadedness (Resolved) Unsteady gait (Resolved) Headache (Resolved) Chest pain (Resolved) Weakness of both arms (Resolved) Numbness and tingling of right face (Resolved) Difficulty speaking (Resolved) NSTEMI (non-ST elevated myocardial infarction) (Resolved) Jaw pain (Resolved) nausea, abdominal pain, diarrhea with rectal bleeding-splenic flexure to sigmoid colon colitis Patient is being admitted for IV fluids and electrolyte correction. She has been on chronic narcotics will be continued to be given narcotics for her pain symptoms. I ordered an abdominal series to assess her bowel gas pattern fecal loading currently. The patient had a CT scan of the abdomen which demonstrated an pleural effusion but otherwise no abdominal pathology and her previous hospitalization area without other more specific findings I would not repeat CAT scan at this time. Stool cultures are pending anticipate these will be negative. Given the fact the patient Hemoccult positive stools, I would repeat upper and lower endoscopy. Currently recommend we correct her electrolytes and recheck her electrodes and sugars he has adequate urine output overnight. Also based on the degree of fecal loading we will decide how much bowel prep we should provide and then plan for upper and lower endoscopy likely morning. The patient stands the risks, benefits. Complications and possible alternatives to endoscopy and consents to those procedures. KUB yesterday demonstrates significant fecal loading more so in the right colon (overflow incontinence). Upper endoscopy demonstrated minimal gastritis. lower endoscopy demonstrated significant colitis from the splenic flexure to the distal sigmoid. multiple biopsies were taken. continue oral flagyl and carafate. we'll start budesonide oral 9 mg daily
--- NOTE | 2018-10-13 09:42 | PCM.EXTCARCO ---
- Diet 10/13/18 08:17 Diet: Cardiac diet Is pt able to select menu?: Yes - Routine Orders/Code Status Suppository Type: Dulcolax 10mg Suppository Frequency: Daily PRN Routine Lab Work: CBC - 3 days, BMP - 1 week Code Status: Full Code - Therapies Physical Therapy: Eval and Treat Occupational Therapy: Eval and Treat - Problem/Diagnosis (1) Colitis Status: Acute Current Visit: Yes (2) Gastritis Status: Acute Current Visit: Yes (3) Acute blood loss anemia Status: Acute Current Visit: Yes (4) GI bleed Status: Acute Current Visit: No (5) Essential hypertension Status: Chronic Current Visit: No (6) Cardiomyopathy Status: Chronic Current Visit: No (7) Tobacco use disorder Status: Chronic Current Visit: No (8) Esophageal reflux Status: Chronic Current Visit: No (9) Depressive disorder Status: Chronic Current Visit: No (10) Irritable bowel syndrome (IBS) Status: Chronic Current Visit: No (11) Anxiety disorder Status: Chronic Current Visit: No - Allergies/Procedures Done in Hospital Allergies/Adverse Reactions: Allergies duloxetine HCl [From Cymbalta] Adverse Reaction (Verified 10/10/18 11:31) Other morphine Adverse Reaction (Verified 10/10/18 11:31) Itching pramipexole di-HCl [From Mirapex] Adverse Reaction (Verified 10/10/18 11:31) Other Sulfa (Sulfonamide Antibiotics) Adverse Reaction (Verified 10/10/18 11:31) Unknown tramadol HCl [From Ultram] Adverse Reaction (Verified 10/10/18 11:31) Itching varenicline [From Chantix] Adverse Reaction (Verified 10/10/18 11:31) Unknown Procedures: Colonoscopy, EGD - Type of Care/Length of Stay Estimated LOS: Convalescent Care Less Than 30 days Type of Care Needed: Skilled Rehab Potential: Fair Prognosis: Fair - Additional Orders/Day of Discharge Day of Discharge: 10/13/18 - Dietary and Speech Recommendations Dietitian Recommendations/Changes: Advance taz to transitional when medically able with longterm goal of regular low sodium due to past medical history. Will provide Ensure Clear with meals while on clear liquid diet. - Follow Up Care Primary Care Physician: Crystal Earl MD [Primary Care Provider] - Please follow up with your Primary Care Physician in: 2 weeks Please Follow Up With: Gary Garcia MD When: 2 weeks Please Follow Up With: Rosie Mansfield PA When: As directed
--- NOTE | 2018-10-13 09:46 | TREXTCA.CO_ITS ---
- Diet 10/13/18 08:17 Diet: Cardiac diet Is pt able to select menu?: Yes - Routine Orders/Code Status Suppository Type: Dulcolax 10mg Suppository Frequency: Daily PRN Routine Lab Work: CBC - 3 days, BMP - 1 week Code Status: Full Code - Therapies Physical Therapy: Eval and Treat Occupational Therapy: Eval and Treat - Problem/Diagnosis (1) Colitis Status: Acute Current Visit: Yes (2) Gastritis Status: Acute Current Visit: Yes (3) Acute blood loss anemia Status: Acute Current Visit: Yes (4) GI bleed Status: Acute Current Visit: No (5) Essential hypertension Status: Chronic Current Visit: No (6) Cardiomyopathy Status: Chronic Current Visit: No (7) Tobacco use disorder Status: Chronic Current Visit: No (8) Esophageal reflux Status: Chronic Current Visit: No (9) Depressive disorder Status: Chronic Current Visit: No (10) Irritable bowel syndrome (IBS) Status: Chronic Current Visit: No (11) Anxiety disorder Status: Chronic Current Visit: No - Allergies/Procedures Done in Hospital Allergies/Adverse Reactions: Allergies duloxetine HCl [From Cymbalta] Adverse Reaction (Verified 10/10/18 11:31) Other morphine Adverse Reaction (Verified 10/10/18 11:31) Itching pramipexole di-HCl [From Mirapex] Adverse Reaction (Verified 10/10/18 11:31) Other Sulfa (Sulfonamide Antibiotics) Adverse Reaction (Verified 10/10/18 11:31) Unknown tramadol HCl [From Ultram] Adverse Reaction (Verified 10/10/18 11:31) Itching varenicline [From Chantix] Adverse Reaction (Verified 10/10/18 11:31) Unknown Procedures: Colonoscopy, EGD - Type of Care/Length of Stay Estimated LOS: Convalescent Care Less Than 30 days Type of Care Needed: Skilled Rehab Potential: Fair Prognosis: Fair - Additional Orders/Day of Discharge Day of Discharge: 10/13/18 - Dietary and Speech Recommendations Dietitian Recommendations/Changes: Advance taz to transitional when medically able with correction goal of regular low sodium due to past medical history. Rui l provide Ensure Clear with meals while on clear liquid diet. - Follow Up Care Primary Care Physician: Crystal Earl MD [Primary Care Provider] - Please follow up with your Primary Care Physician in: 2 weeks Please Follow Up With: Gary Garcia MD When: 2 weeks Please Follow Up With: Rosie Mansfield PA When: As directed
--- NOTE | 2018-10-13 09:54 | CASEMGMT ---
Addendum entered by Nicole Fernandez 10/13/18 11:25: REE placed a call to Teagan at [facility], asking if she has heard anything regarding Entocourt. Teagan states that she is still waiting to hear from her imaging system administrator. REE asked Teagan if [facility] would be able to transport pt as it is becoming more difficult to find wheelchair van transportation. Teagan states that she will check with her imaging system administrator and will check on transportation schedule. REE waiting for call back. Original Note: Addendum entered by Nicole Fernandez 10/13/18 10:29: REE received message from Teagan at [facility] stating she is waiting to hear back from pharmacy and then she will have to check with her imaging system administrator in regards to Entocourt. Original Note: Social Work Note SW received call from Physician stating pt is likely going to be discharged on Entocourt and asked if SNF is still able to accept as the medication can be expensive. REE placed a call to Teagan at [facility], left message, asking if she is still able to accept pt if pt is discharged on Entocourt. REE waiting for call back. Plan: Discharge to [facility] today Nicole Fernandez WAREHOUSE OPERATOR, CARTRIDGE LOADING OPERATOR
[2018-10-13 10:13] VITALS: BP 146/66; PULSE 93; RESP 18; TEMP 36.7; O2SAT 92
[2018-10-13 10:21] VITALS: BP 146/66; PULSE 93
[2018-10-13] MEDS: Metoprolol Tartrate 25 MG Tablet PO (10:21)
[2018-10-13] MEDS: busPIRone 15 MG TABLET PO (10:22)
[2018-10-13] MEDS: amLODIPine 5 MG Tablet PO (10:22)
[2018-10-13] MEDS: Sertraline 50 MG Tablet 150 MG PO (10:22)
[2018-10-13] MEDS: Ensure Clear 120 ML Liquid PO (10:29)
[2018-10-13] MEDS: Famotidine 20 MG Tablet PO (10:29)
[2018-10-13] MEDS: Budesonide 3 MG CAPSULE.EC 9 MG PO (10:30)
[2018-10-13] MEDS: Acetaminophen 325 MG Tablet 650 MG PO (10:32)
[2018-10-13] MEDS: Insulin Lispro 100 UNIT/ML INSULN.PEN SQ (11:25)
[2018-10-13 11:31] LABS: Bedside Glucose 205 mg/dL (70-110)
--- NOTE | 2018-10-13 13:46 | PCM.DC.SUM ---
Discharge Date and Diagnosis - Problem List Patient Problems: Active and Suspected Problems (Last Updated 10/11/18 @ 17:29 by Christian Melgoza DO) Colitis (Acute) Gastritis (Acute) Acute blood loss anemia (Acute) Diarrhea (Acute) Failure to thrive in adult (Acute) Date of Admission: 10/10/18 Date of Discharge: 10/13/18 - Primary Discharge Diagnosis Active and Suspected Problems (Last Updated 10/11/18 @ 17:29 by Christian Melgoza DO) Colitis (Acute), suspect IBD Gastritis (Acute) Acute blood loss anemia (Acute) CKDIII CAD HTN Anx/Depression Nicotine abuse - Secondary Discharge Diagnosis Chronic Problems (Last Updated 10/11/18 @ 17:29 by Christian Melgoza DO) Renal insufficiency (Chronic) Anemia, chronic disease (Chronic) Essential hypertension (Chronic) Frequent falls (Chronic) Cardiomyopathy (Chronic) Tobacco use disorder (Chronic) Esophageal reflux (Chronic) Depressive disorder (Chronic) Back ache (Chronic) Irritable bowel syndrome (IBS) (Chronic) Anxiety disorder (Chronic) Hospital Course and Treatment Imaging Results: RAD/Abd Inc Decub and/or Erect IMPRESSION: No bowel obstruction. Constipation Consults: Radha - Gen Surg Operations: None Procedures: Colonoscopy, EGD Summary of Care Provided: Hospital Course: The patient is a 63 year old F with pmhx as above who presented to the ER with c/o diarrhea, generalized weakness, and blood in her stool. She was found to be anemic with Hgb 9.5.KUB was negative. Plavix was dinscontinued. She was admitted for colitis and GI bleed. She underwent a colonoscopy and EGD with Dr. Garcia. This found colitis and gastritis. She was started on carafate and flagyl. Biopsy was taken. Path report demonstrated probably inflammatory bowel disease favoring ulcerative colitis although it was not more specific than that. Her Hgb remained stable, stool slowed down and became soft rather than watery, and her diet was successfully advanced. She was placed on enterocort. She will complete 7 days of flagyl. She continue carafate and a PPI. She was discharged to SNF in stable condition. She will need follow up with Dr. Garcia for another colonoscopy as her prep was poor. She will need to also follow up with her PCP in 1-2 weeks, and her dry cell assembly supervisor as directed. This patient was seen by Mitchell Pattne under the supervision of Dr. Melgoza. [] Patient Problems: Active and Suspected Problems (Last Updated 10/11/18 @ 17:29 by Christian Melgoza DO) Colitis (Acute) Gastritis (Acute) Acute blood loss anemia (Acute) Diarrhea (Acute) Failure to thrive in adult (Acute) - Physical Exam General: Alert, Oriented x3, Cooperative HEENT: Atraumatic, PERRLA, EOMI, Normocephalic Neck: Supple, No JVD, Negative Carotid Bruits Lungs: Clear to auscultation, Normal air movement Cardiovascular: Regular rate, No murmurs Abdomen: Bowel Sounds Present, Soft, Non Tender Extremities: No edema, Capillary Refill Less than 3 Seconds Skin: No rashes, No breakdown Musculoskeletal: No Tenderness to Palpation of Joints or Extremities Neurological: Cranial nerves II-XII grossly intact Psych/Mental Status: Normal Affect, Appropriate, Alert and oriented to time, place, person, mood and affect Vital Signs Temp Pulse Resp BP Pulse Ox 98.0 F 93 18 146/66 H 92 10/13/18 10:13 10/13/18 10:21 10/13/18 10:13 10/13/18 10:21 10/13/18 10:13 Oxygen Delivery Method Room Air Weight: 190 lb 14.725 oz Body Mass Index (BMI) 27.1 Finger Stick Blood Glucose 199 Intake and Output for Last 24 Hours 10/11/18 10/12/18 10/13/18 23:59 23:59 23:59 Intake Total 3239 / 3239 3826 / 3826 749 / 749 Output Total 503 / 503 Balance 2736 / 2736 3826 / 3826 749 / 749 Microbiology Past 72 Hours 10/10/18 13:30 Enteric Bacteriology - Final Stool 10/10/18 13:30 Stool Occult Blood (HEATH) - Final Stool Occult Blood Positive 10/10/18 13:30 C. difficile DNA Amplification - Final Stool Laboratory Tests Past 24 Hrs 10/13/18 05:23 WBC 5.5 RBC 2.97 L Hgb 8.2 L Hct 25.8 L MCV 86.9 MCH 27.6 MCHC 31.8 L RDW 16.4 H RDW Differential 49.3 H Plt Count 307 MPV 8.9 POC Glucose 10/13/18 10/13/18 10/12/18 11:24 06:56 22:02 POC Glucose 205 H 139 H 158 H 10/12/18 16:10 POC Glucose 140 H Discharge Diet: Low fat/ Low Cholesterol, 2000 mg Sodium Diet Discharge Activity: Return to Normal Activity Home Medications: Medications to take at Discharge Nitroglycerin [Nitrostat] 0.4 mg SL PRN PRN 08/20/13 Clonazepam [Klonopin] 0.5 mg PO QHS 08/14/15 Metoprolol Tartrate [Lopressor (beta codie)] 25 mg PO BID 08/14/15 Dicyclomine HCl [Bentyl] 10 mg PO ACHS 09/08/17 Triamcinolone 0.025% Cream [Kenalog] 1 applic TOPICAL BID PRN 09/08/17 Amlodipine [Norvasc] 5 mg PO DAILY #60 tab 09/09/17 Nystatin Powder [Mycostatin Powder] 1 applic TOPICAL 4X/DAY PRN PRN 07/16/18 Rosuvastatin Calcium [Crestor] 10 mg PO QHS 07/16/18 Albuterol Inhaler [Ventolin Hfa] 2 puff INHALATION Q4H PRN PRN 07/27/18 busPIRone [Buspar] 15 mg PO BID 07/27/18 bisacodyl 10 mg rectal suppository 10 mg RC DAILY PRN 08/28/18 calcium carbonate 200 mg calcium (500 mg) chewable tablet 200 mg PO Q4H PRN tab 08/28/18 omeprazole 40 mg capsule,delayed release 40 mg PO DAILY cap 08/28/18 sertraline 50 mg tablet 150 mg PO DAILY tab 08/28/18 Ondansetron [Zofran Odt] 4 mg PO Q8H PRN PRN #10 tab 09/25/18 Potassium Chloride 40 meq PO DAILY #10 packet 09/25/18 Acetaminophen [Tylenol Tablet] 650 mg PO Q6H PRN PRN tablet 10/13/18 Budesonide [Budesonide EC] 9 mg PO DAILY #0 capsule.ec 10/13/18 Nicotine [Nicoderm] 14 mg TRANSDERM. DAILY patch 10/13/18 Oxycodone [Oxyir] 5 mg PO Q6H PRN PRN 5 Days #20 tab 10/13/18 Sucralfate [Carafate] 1 gm PO 1HR_ACHS tablet 10/13/18 metroNIDAZOLE [Flagyl] 500 mg PO TID #18 tablet 10/13/18 Following Prescrptions Were Given to Patient: metroNIDAZOLE [Flagyl] 500 mg PO TID #18 tablet Oxycodone [Oxyir] 5 mg PO Q6H PRN PRN 5 Days #20 tab PRN Reason: Severe Pain (6-02/08) Primary Care Physician: Crystal Earl MD [Primary Care Provider] - Please follow up with your Primary Care Physician in: 2 weeks Please Follow Up With: Gary Garcia MD When: 2 weeks Please Follow Up With: Rosie Mansfield PA When: As directed Disposition: [facility] facility Minutes spent on discharge:: 35 Patient Condition:: Stable Medical Necessity - Tobacco Use Smoking Status: Current some day smoker Tobacco Use: Cigarettes Meaningful Use Info Meaningful Use Diagnoses (Choose all that apply): None applicable
--- NOTE | 2018-10-13 13:53 | CASEMGMT ---
Social Work Note SW received call from Teagan at [facility] stating they are able to accept pt on [place] and she is checking on transportation. Physician updated. SW received another call from Teagan at [facility] stating that [facility] is able to transport pt and are requesting picker time around 2:15pm. RN updated and CITY DRIVER updated. REE faxed completed discharge paperwork to [facility] including transfer to extended care facility, signed medication list and any scripts. Original in SNF folder and copy on pt's chart. REE completed PAS/RR in HENS. Original in SNF folder and copy on pt's chart. REE placed transportation form on SNF folder. SW updated pt on discharge to [facility] and transportation time. Pt denied wanting this worker to call any family or friends. Plan: Discharge to [facility] today skilled with [facility] transporting around 2:15pm Nicole BAKER, [employer]BIN[employer] MAN
[2018-10-13 14:22] VITALS: BP 132/60; PULSE 90; RESP 18; TEMP 36.6; O2SAT 94
--- NOTE | 2018-10-13 14:40 | NURSING ---
REPORT GIVEN TO DESIREE PLUNKETT AT [facility]
== END 2018-10-13 14:16 | disposition skilled nursing facility (03) ==
LOC: ED 15:48 → MS3 16:03
PROVIDERS: Anesthesiology; Physician Assistant; Surgery; Admitting Provider Internal Medicine; Emergency Provider Emergency Medicine; Family Provider Internal Medicine; PCP Internal Medicine; Referring Provider Internal Medicine; Visit Provider Internal Medicine
PROC: 0DJD8ZZ Inspection of Lower Intestinal Tract, Via Natural or Artificial Opening Endoscopic (ICD-10-PCS; CPT 45378; principal; 2018-10-12 06:25)
DX: K52.9 Noninfective gastroenteritis and colitis, unspecified (principal); K29.70 Gastritis, unspecified, without bleeding; I25.10 Atherosclerotic heart disease of native coronary artery without angina pectoris; I12.9 Hypertensive chronic kidney disease with stage 1 through stage 4 chronic kidney disease, or unspecified chronic kidney disease; N18.3 Chronic kidney disease, stage 3 (moderate); F41.9 Anxiety disorder, unspecified; F32.9 Major depressive disorder, single episode, unspecified; R62.7 Adult failure to thrive; D62 Acute posthemorrhagic anemia; K21.9 Gastro-esophageal reflux disease without esophagitis; D68.9 Coagulation defect, unspecified; I25.2 Old myocardial infarction; F17.210 Nicotine dependence, cigarettes, uncomplicated; E87.6 Hypokalemia; E86.0 Dehydration; D63.8 Anemia in other chronic diseases classified elsewhere; N17.9 Acute kidney failure, unspecified; Z79.02 Long term (current) use of antithrombotics/antiplatelets; Z79.82 Long term (current) use of aspirin; Z79.899 Other long term (current) drug therapy
CPT/HCPCS: 43239; 45380; 36415; 74019; 80048; 80053; 80076; 82274; 82962; 83036; 83735; 85014; 85018; 85025; 85027; 85610; 86850; 86900; 86920; 86922; 87493; 87506; 88305; 88342; 93005; 96361; 96374; 96375; 96376; 97162; 97166; 97530; 97535; 97802; 99218; 99285; 99406; J7030; J7040; A4216; G0378; J2405

== ENCOUNTER 2018-10-15 23:55 | Inpatient (IN) | payer MEDICAID, SELFPAY ==
[2018-10-12 05:43] VITALS: BMI 27.1
[2018-10-15 23:56] VITALS: BP 113/38; PULSE 75; RESP 18; TEMP 37.1; O2SAT 95; BMI 28.5
[2018-10-16] VITALS (11 sets, daily range): BP systolic 104–138; BP diastolic 39–69; PULSE 71–86; RESP 18; TEMP 36.8–37; O2SAT 96–99; BMI 28.0
--- NOTE | 2018-10-16 00:16 | ED.VIS.GEN ---
History of Present Illness Chief Complaint: General Illness Informant: Patient Narrative: Stated she is here for evaluation of bloody diarrhea for the last 8 weeks. The patient had a recent admission to the hospital and was diagnosed with ulcerative colitis and gastritis. She stated she is had approximately 5 diarrheas today with blood in it. She is been having on and off symptoms with this for the last 2 months. She was just discharged to the intermediate recently. She is on budesonide steroids to try to calm down the inflammation. The patient has had multiple colonoscopies due to ineffective first bowel prep. She was told by Dr. Garcia she does indeed have inflammatory bowel disease. She also has a history of irritable bowel disease. She states she has some abdominal cramping but this is not new from her previous problems. She is taking pain pills for this. Denies any nausea or vomiting fevers or chills or other symptoms. Patient did mention 24 hours ago she thought the bathroom door was the closet door but is not actively hallucinating. - Past Medical History (1) Acute blood loss anemia Status: Acute (2) Colitis Status: Acute (3) Diarrhea Status: Acute (4) Failure to thrive in adult Status: Acute (5) GI bleed Status: Acute (6) Gastritis Status: Acute (7) Anemia, chronic disease Status: Chronic (8) Anxiety disorder Status: Chronic (9) Back ache Status: Chronic (10) Cardiomyopathy Status: Chronic (11) Depressive disorder Status: Chronic (12) Esophageal reflux Status: Chronic (13) Essential hypertension Status: Chronic (14) Frequent falls Status: Chronic (15) Irritable bowel syndrome (IBS) Status: Chronic (16) Renal insufficiency Status: Chronic (17) Tobacco use disorder Status: Chronic (18) Acute liver failure Status: Resolved (19) Acute renal failure Status: Resolved (20) Acute renal insufficiency Status: Resolved (21) Chest pain Status: Resolved (22) Coagulopathy Status: Resolved (23) Difficulty speaking Status: Resolved (24) Headache Status: Resolved (25) Hepatic encephalopathy Status: Resolved (26) Jaw pain Status: Resolved (27) Lightheadedness Status: Resolved (28) NSTEMI (non-ST elevated myocardial infarction) Status: Resolved (29) Numbness and tingling of right face Status: Resolved (30) Shock, unspecified Status: Resolved (31) UTI (urinary tract infection) Status: Resolved (32) Unsteady gait Status: Resolved (33) Weakness of both arms Status: Resolved Past Medical History - Allergies and Home Meds Allergies/Adverse Reactions: Allergies duloxetine HCl [From Cymbalta] Adverse Reaction (Verified 10/15/18 23:59) Other morphine Adverse Reaction (Verified 10/15/18 23:59) Itching pramipexole di-HCl [From Mirapex] Adverse Reaction (Verified 10/15/18 23:59) Other Sulfa (Sulfonamide Antibiotics) Adverse Reaction (Verified 10/15/18 23:59) Unknown tramadol HCl [From Ultram] Adverse Reaction (Verified 10/15/18 23:59) Itching varenicline [From Chantix] Adverse Reaction (Verified 10/15/18 23:59) Unknown Primary Care Physician: Crystal Earl MD [Primary Care Provider] - Prior records reviewed: Yes Surgical History: noncontributory, - Smoking Status: Current every day smoker Alcohol: None Drugs: None - Family History Maternal Family History: Family History (Last Reviewed 09/21/18 @ 08:13 by Jennifer Allen) Other Adopted Family History: Reports: No pertinent history - Patient was adopted Paternal Family History: Family History (Last Reviewed 09/21/18 @ 08:13 by Jennifer Allen) Other Adopted Family History: Reports: No pertinent history - Was adopted Review of Systems General: Denies: Chills, Fever, Sweats Eyes: Denies: Visual changes - bilaterally, Diplopia ENT: Denies: Rhinorrhea, Sore throat Cardiovascular: Denies: Chest pain, Palpitations Respiratory: Denies: Dyspnea, Cough, Dyspnea on exertion Gastrointestinal: Reports: Abdominal pain, Diarrhea, Hematochezia. Denies: Nausea, Vomiting, Melena Genitourinary: Denies: Dysuria, Hematuria, Frequency Musculoskeletal: Denies: Back pain, Extremity Pain Skin: Denies: Rash, Wounds Neurological: Denies: Headache, Weakness, Numbness Physical Exam Vital Signs/Narrative: Vital Signs Temp Pulse Resp BP Pulse Ox 10/16/18 00:04 104/41 L 10/15/18 23:56 98.8 F 75 18 113/38 L 95 General: Well nourished, Well developed, No Acute Distress Head: Normocephalic, Atraumatic Eyes: Perrl, EOMI ENT: Moist mucous membranes, No rhinorrhea Neck: Supple, Nontender Cardiovascular: Regular rate, Regular rhythm, No murmurs Respiratory: No distress, CTA bilaterally, Chest nontender Abdomen: Soft, Nondistended, Normal bowel sounds, Tender - Mild diffuse tenderness no guarding or rebound. Negative for: Nontender Back: Nontender, Normal Inspection Extremities: Nontender, No edema Skin: Normal color, No rash Neurological: Alert, Oriented x3, Cranial nerves II-XII grossly intact, Normal Strength, Normal Sensation Psychological: Normal affect, Normal Mood Diagnostic/Tx/Re-eval - Medical Decision Making She given IV fluids. Lab work obtained. Lab work shows a potassium that is low. Patient chronically takes potassium for hypokalemia. No EKG changes. Patient's creatinine is elevated consistent with dehydration and acute renal insufficiency. Hemoglobin is 7.6 just slightly below the 8.2 that she was prior to discharge. At this time due to the fact that the patient's hemoglobin is trending down she continues to have bloody diarrhea I think it is reasonable to admit her due to dehydration and further watch her hemoglobin to make sure she does not need a blood transfusion. Patient will be discussed with the hospitalist. I did replace her potassium. Patient is in agreement to admission. ED Disposition - Plan for ED Patient: Diagnosis: Inflammatory bowel disease, Chronic anemia, Dehydration, Acute renal insufficiency Referrals: Crystal Earl MD [Primary Care Provider] -
[2018-10-16] MEDS: 0.9% Normal Saline 1,000 ML 1000 ML IV (00:40)
[2018-10-16 00:54] LABS: Absolute Neutrophil Count 4.4 X10^3/uL (2.0-7.7); Basophil# 0.01 X10^3/uL; Basophil% 0.2 % (0-1); Eosinophil# 0.07 X10^3/uL; Eosinophils% 1.2 % (0-5); Hematocrit 24.8 % (37-47); Hemoglobin 7.6 g/dl (12.0-15.0); Lymphocyte % 16.7 % (19-41); Mean Corp Hgb Conc 30.6 g/gl (32-36); Mean Corpuscular Hgb 26.9 pg (27.0-32.0); Mean Corpuscular Volume 87.6 fL (81-99); Mean Platelet Vol. 8.9 fl (6.2-12.0); Monocyte# 0.49 X10^3/uL; Monocyte% 8.2 % (0-10); Neutrophil # 4.39 X10^3/uL (2.7-7.7); Platelet Count 320 K/mm3 (150-450); RBC Distribution Width CV 16.9 % (11.6-14.6); RBC Distribution Width SD 51.8 fl (35.1-43.9); Red Blood Count 2.83 M/mm3 (4.2-5.4)
[2018-10-16 00:56] LABS: Differential Indicated SCAN CRITERIA MET; POSITIVE COUNT NO; POSITIVE DIFFERENTIAL NO; POSITIVE MORPHOLOGY YES
[2018-10-16 01:01] LABS: Anion Gap 5 (5-15); BUN 10 mg/dL (7-18); BUN/Creat Ratio 8.3 RATIO (10-20); Calcium,Total 7.2 mg/dL (8.5-10.1); Chloride 109 mmol/L (98-107); Creatinine, Serum 1.21 mg/dL (0.55-1.02); EST Glomerular Filtration Rate 47 mL/min (>60); Est Glom Filt Rate - Afr Amer 57 mL/min (>60); Estimated Creatinine Clearance 48.44 ml/min; Glucose 140 mg/dL (74-106); Potassium 2.8 mmol/L (3.5-5.1); Sodium Level 140 mmol/L (136-145)
[2018-10-16 01:20] LABS: Differential Comment SCANNED
--- NOTE | 2018-10-16 01:34 | PCM.HP.STD ---
Problem List (1) Inflammatory bowel disease Status: Acute History of Present Illness Date of Admission: 10/16/18 Chief Complaint: Diarrhea The patient is a 63 year old F with a significant history of tobacco abuse; ulcerative colitis diagnosed about 8 weeks ago presenting with persistent diarrhea. She reports seeing blood in her stools. Also she reports of abdominal pain at her left lower quadrant. She reports nausea and anorexia. She reports having 2 colonoscopy recently. She had 2 colonoscopies because the first colonoscopy was with a poor bowel prep. The second colonoscopy was about a week ago and at that time she had an upper endoscopy. She reported that the results of the colonoscopy showed colitis. Further, she reports confusion about a day ago that has since resolved. Past Medical History Past Medical History (Chronic Problems): Chronic Problems (Last Reviewed 10/16/18 @ 02:48 by Som Washington MD) Chronic anemia (Chronic) Renal insufficiency (Chronic) Anemia, chronic disease (Chronic) Essential hypertension (Chronic) Frequent falls (Chronic) Cardiomyopathy (Chronic) Tobacco use disorder (Chronic) Esophageal reflux (Chronic) Depressive disorder (Chronic) Back ache (Chronic) Irritable bowel syndrome (IBS) (Chronic) Anxiety disorder (Chronic) Medical History: Medical History (Last Reviewed 10/16/18 @ 02:48 by Som Washington MD) Frequent falls (Chronic) R29.6 Shock, unspecified (Resolved) R57.9 GI bleed (Acute) K92.2 Acute liver failure (Resolved) K72.00 Coagulopathy (Resolved) D68.9 UTI (urinary tract infection) (Resolved) N39.0 Hepatic encephalopathy (Resolved) K72.90 Cardiomyopathy (Chronic) I42.9 Acute renal insufficiency (Resolved) N28.9 Acute renal failure (Resolved) N17.9 Lightheadedness (Resolved) R42 Unsteady gait (Resolved) R26.81 Headache (Resolved) R51 Chest pain (Resolved) R07.9 Tobacco use disorder (Chronic) F17.200 Esophageal reflux (Chronic) K21.9 Depressive disorder (Chronic) F32.9 Back ache (Chronic) M54.9 Weakness of both arms (Resolved) M62.81 Numbness and tingling of right face (Resolved) R20.0, R20.2 Difficulty speaking (Resolved) NSTEMI (non-ST elevated myocardial infarction) (Resolved) I21.4 Jaw pain (Resolved) R68.84 Irritable bowel syndrome (IBS) (Chronic) Anxiety disorder (Chronic) F41.9 Vascular dementia with behavior disturbance F01.51 Allergies duloxetine HCl [From Cymbalta] Adverse Reaction (Verified 10/15/18 23:59) Other morphine Adverse Reaction (Verified 10/15/18 23:59) Itching pramipexole di-HCl [From Mirapex] Adverse Reaction (Verified 10/15/18 23:59) Other Sulfa (Sulfonamide Antibiotics) Adverse Reaction (Verified 10/15/18 23:59) Unknown tramadol HCl [From Ultram] Adverse Reaction (Verified 10/15/18 23:59) Itching varenicline [From Chantix] Adverse Reaction (Verified 10/15/18 23:59) Unknown Home Medications: Ambulatory Orders Medication Instructions Recorded Nitroglycerin [Nitrostat] 0.4 mg SL PRN PRN 08/20/13 Clonazepam [Klonopin] 0.5 mg PO QHS 08/14/15 Metoprolol Tartrate [Lopressor 25 mg PO BID 08/14/15 (beta codie)] Dicyclomine HCl [Bentyl] 10 mg PO ACHS 09/08/17 Triamcinolone 0.025% Cream 1 applic TOPICAL BID PRN 09/08/17 [Kenalog] Nystatin Powder [Mycostatin Powder] 1 applic TOPICAL 4X/DAY PRN PRN 07/16/18 Albuterol Inhaler [Ventolin Hfa] 2 puff INHALATION Q4H PRN PRN 07/27/18 busPIRone [Buspar] 15 mg PO BID 07/27/18 bisacodyl 10 mg rectal suppository 10 mg RC DAILY PRN PRN 08/28/18 calcium carbonate 200 mg calcium 200 mg PO Q4H PRN tab 08/28/18 (500 mg) chewable tablet omeprazole 40 mg capsule,delayed 40 mg PO DAILY cap 08/28/18 release sertraline 50 mg tablet 150 mg PO DAILY tab 08/28/18 Ondansetron [Zofran Odt] 4 mg PO Q8H PRN PRN #10 tab 09/25/18 Acetaminophen [Tylenol Tablet] 650 mg PO Q6H PRN PRN tablet 10/13/18 Oxycodone [Oxyir] 5 mg PO Q6H PRN PRN 5 Days #20 tab 10/13/18 Amlodipine [Norvasc] 5 mg PO DAILY 10/16/18 Atorvastatin Calcium [Lipitor] 20 mg PO QHS 10/16/18 Budesonide [Budesonide EC] 9 mg PO DAILY 10/16/18 Nicotine [Nicoderm] 14 mg TRANSDERM. DAILY 10/16/18 Potassium Chloride 40 meq PO DAILY 10/16/18 Sucralfate [Carafate] 1 gm PO 1HR_ACHS 10/16/18 metroNIDAZOLE [Flagyl] 500 mg PO TID 10/16/18 Surgical History: Surgical History (Last Reviewed 10/16/18 @ 02:49 by Som Washington MD) History of colonoscopy Z98.890 X 2 Surgical History: - - All teeth pulled put. Lives: [facility] Smoking Status: Current some day smoker Alcohol: None Drugs: None - *Family History Maternal Family History: Family History (Last Reviewed 10/16/18 @ 02:49 by Som Washington MD) Other Adopted History Items: - - Patient was adopted Paternal Family History: Family History (Last Reviewed 10/16/18 @ 02:49 by Som Washington MD) Other Adopted History Items: No pertinent history, - - Patient was adopted Review of Systems Constitutional: Denies: Chills, Fever, Weight Change HEENT: Denies: Head Aches, Sinus Congestion, Sinus Drainage Cardiovascular: Denies: Chest Pain, Palpitations Respiratory: Denies: Cough, Shortness of breath at rest, Sputum production Gastrointestinal: Reports: Abdominal Pain, Diarrhea, Nausea. Denies: Vomiting Genitourinary: Denies: Dysuria Musculoskeletal: Denies: Joint Pain, Joint Tenderness Skin: Denies: Rash, Wounds Neurological: Denies: Numbness, Tingling, Focal weakness Psychiatric: Denies: Anxiety, Depression, Homicidal Ideations, Suicidal Ideations Hematologic/ Lymphatic: Denies: Easy Bruising, Easy Bleeding VTE Information - Inpt Only VTE Present on Admission: No VTE Mechan Device Prophylaxis: None VTE Pharm Prophylaxis ordered?: Yes Patient Problems: Active and Suspected Problems (Last Reviewed 10/16/18 @ 02:48 by Som Washington MD) Inflammatory bowel disease (Acute) Dehydration (Acute) Acute renal insufficiency (Acute) - Physical Exam General: Alert, Oriented x3, Cooperative HEENT: Atraumatic, PERRLA, EOMI, Normocephalic Neck: Supple, No JVD, Negative Carotid Bruits Lungs: Clear to auscultation, Normal air movement Cardiovascular: Regular rate, No murmurs Abdomen: Bowel Sounds Present, Soft, Non Tender, - - Rectal exams showed loose brown stools with no gross blood. Extremities: Capillary Refill Less than 3 Seconds, Edema - left feet Skin: No rashes, No breakdown Musculoskeletal: No Tenderness to Palpation of Joints or Extremities Neurological: Neuro grossly intact Psych/Mental Status: Normal Affect, Appropriate Vital Signs Temp Pulse Resp BP Pulse Ox 98.8 F 75 18 104/41 L 95 10/15/18 23:56 10/15/18 23:56 10/15/18 23:56 10/16/18 00:04 10/15/18 23:56 Oxygen Delivery Method Room Air Weight: 87.6 kg Body Mass Index (BMI) 28.5 Finger Stick Blood Glucose 199 Laboratory Tests Past 24 Hrs 10/16/18 10/16/18 00:30 00:30 WBC 6.0 RBC 2.83 L Hgb 7.6 L Hct 24.8 L MCV 87.6 MCH 26.9 L MCHC 30.6 L RDW 16.9 H RDW Differential 51.8 H Plt Count 320 MPV 8.9 Immature Gran % (Auto) 0.700 Neut % (Auto) 73.0 H Lymph % (Auto) 16.7 L [place] % (Auto) 8.2 Eos % (Auto) 1.2 Baso % (Auto) 0.2 Absolute Neuts (auto) 4.4 Absolute Lymphs (auto) 1.00 Total Counted Not Reportable Differential Comment SCANNED Sodium 140 Potassium 2.8 L Chloride 109 H Carbon Dioxide 26.0 Anion Gap 5 BUN 10 Creatinine 1.21 H Estim Creat Clear Calc 48.44 Est GFR (MDRD) Af Amer 57 L Est GFR (MDRD) Non-Af 47 L BUN/Creatinine Ratio 8.3 L Glucose 140 H Calcium 7.2 L Assessment/Plan All Active Problems (Last Reviewed 10/16/18 @ 02:48 by Som Washington MD) Colitis (Acute) Gastritis (Acute) Acute blood loss anemia (Acute) Inflammatory bowel disease (Acute) Dehydration (Acute) Acute renal insufficiency (Acute) Diarrhea (Acute) Failure to thrive in adult (Acute) Shock, unspecified (Resolved) GI bleed (Acute) Acute liver failure (Resolved) Coagulopathy (Resolved) UTI (urinary tract infection) (Resolved) Hepatic encephalopathy (Resolved) Acute renal insufficiency (Resolved) Acute renal failure (Resolved) Lightheadedness (Resolved) Unsteady gait (Resolved) Headache (Resolved) Chest pain (Resolved) Weakness of both arms (Resolved) Numbness and tingling of right face (Resolved) Difficulty speaking (Resolved) NSTEMI (non-ST elevated myocardial infarction) (Resolved) Jaw pain (Resolved) The patient is a 63 year old F with a significant history of ulcerative colitis diagnosed about 8 weeks ago presenting with persistent diarrhea. Acute Ulcerative colitis On home budesonide. Will start patient on Solu-Medrol IV. She reports following up with GI at [facility]. May be patient will be a candidate for Biologics. Consider discussing case with GI group at [facility]. Pain control with home oxyir Hypokalemia On admission her potassium was 2.8 Likely secondary to diarrhea. On home potassium supplementation. She received replacements at the ED. Because of concern of difficulty swallowing we will give liquid potassium. Lactated Ringer's with potassium ordered. Trend BMP. Elevated creatinine without a diagnosis of GEORGE On presentation her creatinine was 1.21 Patient received dialysis transiently. No more on dialysis Hydrate as above. Trend BMP Anemia On presentation her hemoglobin was 7.6. Patient had hemoglobin of 13.5 on 07/16/2018. However her hemoglobin has been slowly trending down. Likely due to ulcerative colitis. We will check serial H&H and transfuse as necessary. Hypocalcemia Presentation her calcium was 7.2 Patient with chronic hypocalcemia. Will check albumin. BMP with ionized calcium ordered. Tobacco abuse She reported she used to smoke heavily and stopped about 8 weeks ago. However every now and then she still smokes. Counseled. Nicotine patch continued Hypertension On presentation her blood pressure was within goal Amlodipine continued Trend blood pressure and adjust blood pressure medication. Left leg swelling Apply rafia wrap at this time. GERD Home sucralfate continued. ok to dissolve in water since patient does not want to take big pills Depression/anxiety Buspirone and Klonopin continued DVT prophylaxis Although patient has anemia she is at high risk of tubal embolism secondary to IBD. Heparin subcutaneous continue at this time. Code Visit Inpatient E&M: 27941 Init Hosp L3
[2018-10-16 03:27] LABS: Albumin, Serum 1.4 g/dL (3.2-5.0)
[2018-10-16 03:34] LABS: Magnesium 1.7 mg/dL (1.6-2.6)
[2018-10-16] MEDS: Heparin Injection (Vial) 5,000 UNIT/ML VIAL 5000 UNIT SC (05:51)
[2018-10-16] MEDS: metroNIDAZOLE 500 MG Tablet PO ×3 (05:51→21:24)
[2018-10-16] MEDS: Dicyclomine 10 MG Capsule PO ×4 (05:52→21:25)
[2018-10-16 06:01] LABS: Hematocrit 23.5 % (37-47); Hemoglobin 7.7 g/dl (12.0-15.0)
[2018-10-16] MEDS: Calcium Carbonate 500 MG Tablet PO ×5 (06:04→21:23)
[2018-10-16] MEDS: Ondansetron 4 MG/2 ML Vial IV (06:04)
[2018-10-16] MEDS: 0.9% NaCl Peripheral Flush Adult/Peds IV ×3 (06:04→16:04)
--- NOTE | 2018-10-16 06:14 | NURSING ---
PER DR. MATOS, IF PT UNABLE TO TAKE LARGE PILLS IT'S OK TO CRUSH FLAGYL AND GIVE IN APPLESAUCE. OK TO DISSOLVE CARAFATE SMALL AMOUNT OF WATER.
--- NOTE | 2018-10-16 07:58 | VDLE_ITS ---
Reason For Study: Swelling RIGHT LEFT GSV is normal. GSV is normal. CFV is compressible, spontaneous, phasic, CFV is compressible, spontaneous, phasic, competent and demonstrates normal competent, and demonstrates normal augmentation. augmentation. FV is compressible, spontaneous, phasic, FV is compressible, spontaneous, phasic, competent and demonstrates normal competent and demonstrates normal augmentation. augmentation. POP V is compressible, spontaneous, phasic, LT PerV is compressible. competent and demonstrates normal Acute deep vein thrombosis is noted in the augmentation. left popliteal vein. T/P Trunk is compressible. Acute deep vein thrombosis is noted in the PTV is compressible. left posterior tibial vein. RT PerV is compressible. Acute deep vein thrombosis is noted in the Procedure left gastroc vein. Exam performed portable in patient room. A preliminary report was called and/or faxed to [facility] charge nurse. Interpretation Summary Acute deep vein thrombosis is noted in the left popliteal vein. Acute deep vein thrombosis is noted in the left posterior tibial vein. Acute deep vein thrombosis is noted in the left gastrocnemius vein. The remainder of the left lower extremity deep venous system is patent and compressible. Deep veins of the right lower extremity are patent and compressible segmentally. There is no evidence of right lower extremity deep vein thrombosis. Valvular competence appears intact within the proximal deep venous systems bilaterally. The greater saphenous veins appear bilaterally patent and compressible segmentally. Ordering Physician: Roldan Ayala Referring Physician: Crystal Earl M.D. Performed By: Nicole Valentine RVT
[2018-10-16] MEDS: Metoprolol Tartrate 25 MG Tablet PO ×2 (09:24→21:24)
[2018-10-16] MEDS: amLODIPine 5 MG Tablet PO (09:24)
[2018-10-16] MEDS: Menthol/Lanolin/Calamine/Znox 113 GM Tube 1 APPLIC TOPICAL ×2 (09:24→21:30)
[2018-10-16] MEDS: Pantoprazole Sodium 40 MG Tablet PO (09:25)
[2018-10-16 09:55] LABS: Hematocrit 23.2 % (37-47); Hemoglobin 7.5 g/dl (12.0-15.0)
--- NOTE | 2018-10-16 10:00 | DCINST_ITS ---
- Discharge Diagnoses Current Active Problems: Current Active and Chronic Problems (Last Reviewed 10/16/18 @ 02:48 by Som Washington MD) Inflammatory bowel disease (Acute) Chronic anemia (Chronic) Dehydration (Acute) Acute renal insufficiency (Acute) Allergies/Adverse Reactions: Allergies duloxetine HCl [From Cymbalta] Adverse Reaction (Verified 10/16/18 03:22) Other pt doesn't remember morphine Adverse Reaction (Verified 10/15/18 23:59) Itching pramipexole di-HCl [From Mirapex] Adverse Reaction (Verified 10/16/18 03:22) Other pt doesn't remember Sulfa (Sulfonamide Antibiotics) Adverse Reaction (Verified 10/15/18 23:59) Unknown tramadol HCl [From Ultram] Adverse Reaction (Verified 10/15/18 23:59) Itching varenicline [From Chantix] Adverse Reaction (Verified 10/15/18 23:59) Unknown Medications to take at Discharge Nitroglycerin [Nitrostat] 0.4 mg SL PRN PRN 08/20/13 Clonazepam [Klonopin] 0.5 mg PO QHS 08/14/15 Metoprolol Tartrate [Lopressor (beta codie)] 25 mg PO BID 08/14/15 Dicyclomine HCl [Bentyl] 10 mg PO ACHS 09/08/17 Triamcinolone 0.025% Cream [Kenalog] 1 applic TOPICAL BID PRN 09/08/17 Nystatin Powder [Mycostatin Powder] 1 applic TOPICAL 4X/DAY PRN PRN 07/16/18 Albuterol Inhaler [Ventolin Hfa] 2 puff INHALATION Q4H PRN PRN 07/27/18 busPIRone [Buspar] 15 mg PO BID 07/27/18 bisacodyl 10 mg rectal suppository 10 mg RC DAILY PRN PRN 08/28/18 calcium carbonate 200 mg calcium (500 mg) chewable tablet 200 mg PO Q4H PRN tab 08/28/18 omeprazole 40 mg capsule,delayed release 40 mg PO DAILY cap 08/28/18 sertraline 50 mg tablet 150 mg PO DAILY tab 08/28/18 Ondansetron [Zofran Odt] 4 mg PO Q8H PRN PRN #10 tab 09/25/18 Acetaminophen [Tylenol Tablet] 650 mg PO Q6H PRN PRN tablet 10/13/18 Oxycodone [Oxyir] 5 mg PO Q6H PRN PRN 5 Days #20 tab 10/13/18 Amlodipine [Norvasc] 5 mg PO DAILY 10/16/18 Atorvastatin Calcium [Lipitor] 20 mg PO QHS 10/16/18 Budesonide [Budesonide EC] 9 mg PO DAILY 10/16/18 Nicotine [Nicoderm] 14 mg TRANSDERM. DAILY 10/16/18 Potassium Chloride 40 meq PO DAILY 10/16/18 Sucralfate [Carafate] 1 gm PO 1HR_ACHS 10/16/18 metroNIDAZOLE [Flagyl] 500 mg PO TID 10/16/18 Primary Care Physician: Crystal Earl MD [Primary Care Provider] - Test Results: Test results from this visit will be discussed in further detail at your follow- up appointment, if applicable.
[2018-10-16 10:07] LABS: Anion Gap 9 (5-15); BUN 8 mg/dL (7-18); BUN/Creat Ratio 7.9 RATIO (10-20); Chloride 111 mmol/L (98-107); Creatinine, Serum 1.01 mg/dL (0.55-1.02); Glucose 155 mg/dL (74-106); Potassium 3.7 mmol/L (3.5-5.1); Sodium Level 143 mmol/L (136-145)
[2018-10-16] MEDS: Sertraline 50 MG Tablet PO (10:14)
--- NOTE | 2018-10-16 10:17 | CASEMGMT ---
Addendum entered by Kathrin Melendez 10/16/18 13:08: Spoke with Teagan at [facility] and pt can return today without obtaining new precert. If pt remains in hospital after midnight, pt will require a new precert prior to return to [facility]. Physician aware. ENEDINA Morataya Original Note: Social Work Met with pt in room and introduced self. Pt was discharged from [facility] on 10/13 to [facility]. Pt planning to return to [facility] and physician stating possible d/c later today. VM left with Teagan at [facility] to determine if new precert will be needed or if pt can return today. Pt expressing many emotional and family concerns. SW provided active listening and emotional support. Will await return call from [facility] for d/c plan. ENEDINA Morataya
[2018-10-16] MEDS: Sucralfate 1 GM Tablet PO ×3 (11:03→21:24)
[2018-10-16] MEDS: oxyCODONE 5 MG Tablet PO ×2 (11:04→17:07)
[2018-10-16] MEDS: busPIRone 5 MG Tablet PO (11:04)
[2018-10-16] MEDS: proCHLORPERazine 10 MG/2 ML Vial 5 MG IV (13:18)
--- NOTE | 2018-10-16 14:19 | PCM.HOSP.N ---
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 Patient has history of significant tobacco abuse, ulcerative colitis diagnosed about 8-week ago with persistent diarrhea and colonoscopy recently. Second colonoscopy and upper endoscopy a week ago. She is admitted with confusion, not aware of surroundings and generalized weakness. She also complained of left leg swelling. She still has diarrhea and reports dark blood in the stool. H&H is low 7.5/23.2. Venous Doppler was reported as left popliteal, PT trunk, PTV and gastroenteric vein DVT. Hematology consult, Dr. Moreno was called in view of medical contraindication of antithrombotic agent in view of active GI bleed and severe anemia
[2018-10-16 14:25] LABS: Hemoglobin 7.6 g/dl (12.0-15.0)
--- NOTE | 2018-10-16 14:31 | CCHN_ITS ---
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 Patient has history of significant tobacco abuse, ulcerative colitis diagnosed about 8-week ago with persistent diarrhea and colonoscopy recently. Second colonoscopy and upper endoscopy a week ago. She is admitted with confusion, not aware of surroundings and generalized weakness. She also complained of left leg swelling. She still has diarrhea and reports dark blood in the stool. H&H is low 7.5/23.2. Venous Doppler was reported as left popliteal, PT trunk, PTV and gastroenteric vein DVT. Hematology consult, Dr. Moreno was called in view of medical contraindication of antithrombotic agent in view of active GI bleed and severe anemia
[2018-10-16 14:40] LABS: AST(SGOT) 11 U/L (15-37); Alanine Aminotransfer ALT/SGPT 11 U/L (13-56); Albumin, Serum 1.4 g/dL (3.2-5.0); Alkaline Phosphatase 243 U/L (45-117); Bilirubin, Direct 0.21 mg/dL (0.00-0.30); Globulin 3.2 g/dL (2.2-4.2); Protein, Total 4.6 g/dL (6.4-8.2)
--- NOTE | 2018-10-16 14:58 | CASEMGMT ---
Social Work Per physician, pt not ready for d/c today. [facility] notified and updated clinicals faxed with request to start precert. Plan: [facility], pending precert ENEDINA Morataya
--- NOTE | 2018-10-16 17:22 | ONC.CONS.INP ---
Consult Referring Physician: Dr. Morse Consult Results: L popliteal DVT. Subjective Date of Service:: 10/16/18 Chief Complaint: BLOODY STOOL History of Present Illness: 63-year-old woman recent diagnosis of ulcerative colitis and bloody diarrhea, was admitted and found to have swelling of the left leg. She had Doppler study which showed DVT of the left popliteal vein and so consult was requested. She still having loose stools, denies seeing any bloody stool today. Past Medical History: Chronic Problems (Last Reviewed 10/16/18 @ 02:48 by Som Washington MD) Chronic anemia (Chronic) Renal insufficiency (Chronic) Anemia, chronic disease (Chronic) Essential hypertension (Chronic) Frequent falls (Chronic) Cardiomyopathy (Chronic) Tobacco use disorder (Chronic) Esophageal reflux (Chronic) Depressive disorder (Chronic) Back ache (Chronic) Irritable bowel syndrome (IBS) (Chronic) Anxiety disorder (Chronic) Past Medical/Surgical History: Past Medical History - Most Recent Inpatient Visit Past Medical History Start: 10/16/18 03:19 Text: Status: Complete Freq: ONCE Protocol: Document 10/16/18 03:19 DC (Rec: 10/16/18 03:31 DC [id number]) BMI Required to complete PMH What is Patient's BMI 28.0 Past Medical History Unable History Recalled No Query Text:Pt Unable/Family Not Present Neurologic Medical History Hx Stroke/TIA Yes: 4-5 years ago & another about 2 years ago Hx Dementia/Alzheimer's No Hx Parkinson's Disease No Hx Seizures No Hx Multiple Sclerosis No Hx Migraines No Comments pt states she has problems with left side after 2nd stroke Cardiac Medical History VTE Present on Admission No Hx of Deep Vein Thrombosis/VTE/PE No Hx Hypertension Yes Hx Chest Pain/Angina Yes Hx Heart Attack Yes: 2 Hx Cardiac Surgery/Stents/Etc. Yes: 1 stent Hx Heart Failure No Hx Pacemaker/AICD No Hx Irregular Heartbeat and/or Afib No Hx Anticoagulant Therapy No Query Text:(Coumadin, Aspirin, Plavix, Xarelto, etc.) Hx Pain in Legs when Walking/Leg Cramps Yes Respiratory Medical History Hx COPD No Hx Emphysema No Hx Smoking Yes Smoking Status Current some day smoker Packs Smoked per Day 0.5 Hx Smoking Cessation Counseling No Hx Smoking Exposure Yes Hx Tobacco Use in last 12 months Yes Sent to [facility] Yes Hx of Pipe Smoking No Hx Sleep Apnea No CPAP No BIPAP No Do you snore loudly (louder than talking No or can be heard through closed doors)? Do you often feel tired/ fatigued/ No sleepy during daytime? Has anyone observed you stop breathing No during sleep? STOP Results Negative GI Medical History Hx Ulcer No Hx Hepatitis No Hx Cirrhosis No Hx GI Bleed Yes: current admission Hx Unplanned Weight Loss No Genitourinary Medical History Indwelling Catheter in Place on Arrival/ No Admission Hx Renal Disease No Hx Dialysis Yes: not currently Musculoskeletal History Hx Arthritis Yes Hx Rheumatoid Arthritis No Endocrine Medical History Hx Diabetes Yes: no meds Hx Thyroid Disease No Hematologic Medical History Hx of Blood Transfusion No Hx of Transfusion in last 3 Months No Ever experience any problems with No transfusion(s)? Hx of Preganancy in last 3 Months No Nurse Filling Out Transfusion & DCLARK Questions: Date: 10/16/18 Time: 03:31 Psycho/Social Medical History Hx Depression Yes Hx Anxiety Yes Hx Behavior Disorder No Hx Alcohol Use No: QUIT 8 WEEKS AGO Hx Substance Use No Other Medical History Hx Blood Disorders No Hx Anemia Yes Hx Cancer No Hx Drug Resistant Organism No Wound/Pressure Injury Present on Arrival No: to be assessed by primary /Admission RN Query Text:If yes, chart assessment in Shift/Clinical Findings Central Line/PICC/VAD Present on Arrival No /Admission Antibiotics within last 7 days? No Methicillin Resistant Staphylococcus aureus Screening Active MRSA No Risk for Readmission Number of Risk Factors 8 At Risk for Readmission Patient is At Risk For Readmission Patient is eligible for Call Back Y Past Medical History (Last Reviewed 10/16/18 @ 02:48 by Som Washington MD) Frequent falls (Chronic) Shock, unspecified (Resolved) GI bleed (Acute) Acute liver failure (Resolved) Coagulopathy (Resolved) UTI (urinary tract infection) (Resolved) Hepatic encephalopathy (Resolved) Cardiomyopathy (Chronic) Acute renal insufficiency (Resolved) Acute renal failure (Resolved) Lightheadedness (Resolved) Unsteady gait (Resolved) Headache (Resolved) Chest pain (Resolved) Tobacco use disorder (Chronic) Esophageal reflux (Chronic) Depressive disorder (Chronic) Back ache (Chronic) Weakness of both arms (Resolved) Numbness and tingling of right face (Resolved) Difficulty speaking (Resolved) NSTEMI (non-ST elevated myocardial infarction) (Resolved) Jaw pain (Resolved) Irritable bowel syndrome (IBS) (Chronic) Anxiety disorder (Chronic) Vascular dementia with behavior disturbance (Chronic) Past Surgical History (Last Reviewed 10/16/18 @ 02:49 by Som Washington MD) History of colonoscopy (Resolved) Maternal Family History: Family History (Last Reviewed 10/16/18 @ 02:49 by Som Washington MD) Other Adopted Family History: - - Patient was adopted Paternal Family History: Family History (Last Reviewed 10/16/18 @ 02:49 by Som Washington MD) Other Adopted Family History: No pertinent history, - - Patient was adopted - Social History Lives: [facility] Smoking Status: Current some day smoker Alcohol: None Drugs: None Allergies/Adverse Reactions: Allergy/AdvReac Type Severity Reaction Status Date / Time duloxetine HCl AdvReac Other Verified 10/16/18 03:22 [From Cymbalta] morphine AdvReac Itching Verified 10/15/18 23:59 pramipexole di-HCl AdvReac Other Verified 10/16/18 03:22 [From Mirapex] Sulfa (Sulfonamide AdvReac Unknown Verified 10/15/18 23:59 Antibiotics) tramadol HCl [From Ultram] AdvReac Itching Verified 10/15/18 23:59 varenicline [From Chantix] AdvReac Unknown Verified 10/15/18 23:59 Review of Systems Constitutional:: Reports: Weakness, Fatigue. Denies: Fever, Sweats Cardiovascular:: Denies: Chest pain, Palpitations, Dyspnea on exertion, Orthopnea, PND, Shortness of breath Respiratory: Denies: Cough, Hemoptysis, Shortness of Breath, Wheezing Gastrointestinal:: Reports: Diarrhea, Hematochezia Genitourinary: Denies: Dysuria, Hematuria, 15, Flank pain Musculoskeletal:: Denies: Back pain, Myalgia, Arthralgia Skin: Denies: Rash, Skin Changes, Wounds Neurological:: Denies: Headache, Dizziness, Visual changes, Tinnitus, Hearing loss Psychiatric: Denies: Anxiety, Depression, Homicidal Ideations, Suicidal Ideations Vital Signs Height 5 ft 9 in Weight: 86.1 kg Weight in Pounds 189.8 lbs Pulse Ox 97 Temperature 98.6 F Pulse Rate 79 Respiratory Rate 18 Blood Pressure 137/69 Blood Pressure Position Semi-Fowlers - Physical Exam General: Alert, Oriented x3, No apparent distress HEENT: Atraumatic, PERRLA, EOMI, Normocephalic Oropharynx:: Dry mucosa Neck:: Supple, Trachea midline. Negative for: JVD, bilateral Cardiac:: Regular rate, Regular rhythm, Normal S1, Normal S2. Negative for: Murmur Lungs: Clear to auscultation, Excusion symmetrical. Negative for: Rhonchi, Wheezes Abdomen:: Soft, Tender - vague. Negative for: Hepatosplenomegaly Extremities:: Negative for: Cyanosis, Edema Neurological: Neuro grossly intact Skin:: Negative for: Lesions, Rash, Petechiae, Ecchymosis Psychiatric:: Appropriate affect, Euthymic Lymphatics:: Negative for: Cervical lymphadenopathy, Supraclavicular lymphadenopathy, Axillary lymphadenopathy Laboratory Data: Laboratory Tests 10/16/18 10/16/18 10/16/18 Range/Units 14:08 09:48 09:48 WBC (4.4-11.0) K/mm3 RBC (4.2-5.4) M/mm3 Hgb 7.6 L 7.5 L (12.0-15.0) g/dl Hct 24.0 L 23.2 L (37-47) % MCV (81-99) fL MCH (27.0-32.0) pg MCHC (32-36) g/gl RDW (11.6-14.6) % RDW Differential (35.1-43.9) fl Plt Count (150-450) K/mm3 MPV (6.2-12.0) fl Immature Gran % (Auto) (0.0-0.9) % Neut % (Auto) (47-70) % Lymph % (Auto) (19-41) % [place] % (Auto) (0-10) % Eos % (Auto) (0-5) % Baso % (Auto) (0-1) % Absolute Neuts (auto) (2.0-7.7) X10^3/uL Absolute Lymphs (auto) (0.83-4.51) X10^3/ul Total Counted Differential Comment Sodium 143 (136-145) mmol/L Potassium 3.7 (3.5-5.1) mmol/L Chloride 111 H (98-107) mmol/L Carbon Dioxide 23.0 (21.0-32.0) mmol/L Anion Gap 9 (5-15) BUN 8 (7-18) mg/dL Creatinine 1.01 (0.55-1.02) mg/dL Estim Creat Clear Calc ml/min Est GFR (MDRD) Af Amer (>60) mL/min Est GFR (MDRD) Non-Af (>60) mL/min BUN/Creatinine Ratio 7.9 L (10-20) RATIO Glucose 155 H (74-106) mg/dL Calcium (8.5-10.1) mg/dL Magnesium (1.6-2.6) mg/dL Total Bilirubin (0.20-1.00) mg/dL Direct Bilirubin (0.00-0.30) mg/dL AST (15-37) U/L ALT (13-56) U/L Alkaline Phosphatase (45-117) U/L Total Protein (6.4-8.2) g/dL Albumin (3.2-5.0) g/dL Globulin (2.2-4.2) g/dL 10/16/18 10/16/18 10/16/18 Range/Units 05:45 00:30 00:30 WBC (4.4-11.0) K/mm3 RBC (4.2-5.4) M/mm3 Hgb 7.7 L (12.0-15.0) g/dl Hct 23.5 L (37-47) % MCV (81-99) fL MCH (27.0-32.0) pg MCHC (32-36) g/gl RDW (11.6-14.6) % RDW Differential (35.1-43.9) fl Plt Count (150-450) K/mm3 MPV (6.2-12.0) fl Immature Gran % (Auto) (0.0-0.9) % Neut % (Auto) (47-70) % Lymph % (Auto) (19-41) % [place] % (Auto) (0-10) % Eos % (Auto) (0-5) % Baso % (Auto) (0-1) % Absolute Neuts (auto) (2.0-7.7) X10^3/uL Absolute Lymphs (auto) (0.83-4.51) X10^3/ul Total Counted Differential Comment Sodium (136-145) mmol/L Potassium (3.5-5.1) mmol/L Chloride (98-107) mmol/L Carbon Dioxide (21.0-32.0) mmol/L Anion Gap (5-15) BUN (7-18) mg/dL Creatinine (0.55-1.02) mg/dL Estim Creat Clear Calc ml/min Est GFR (MDRD) Af Amer (>60) mL/min Est GFR (MDRD) Non-Af (>60) mL/min BUN/Creatinine Ratio (10-20) RATIO Glucose (74-106) mg/dL Calcium (8.5-10.1) mg/dL Magnesium 1.7 (1.6-2.6) mg/dL Total Bilirubin 0.50 (0.20-1.00) mg/dL Direct Bilirubin 0.21 (0.00-0.30) mg/dL AST 11 L (15-37) U/L ALT 11 L (13-56) U/L Alkaline Phosphatase 243 H (45-117) U/L Total Protein 4.6 L (6.4-8.2) g/dL Albumin 1.4 L (3.2-5.0) g/dL Globulin 3.2 (2.2-4.2) g/dL 10/16/18 10/16/18 10/16/18 Range/Units 00:30 00:30 00:30 WBC 6.0 (4.4-11.0) K/mm3 RBC 2.83 L (4.2-5.4) M/mm3 Hgb 7.6 L (12.0-15.0) g/dl Hct 24.8 L (37-47) % MCV 87.6 (81-99) fL MCH 26.9 L (27.0-32.0) pg MCHC 30.6 L (32-36) g/gl RDW 16.9 H (11.6-14.6) % RDW Differential 51.8 H (35.1-43.9) fl Plt Count 320 (150-450) K/mm3 MPV 8.9 (6.2-12.0) fl Immature Gran % (Auto) 0.700 (0.0-0.9) % Neut % (Auto) 73.0 H (47-70) % Lymph % (Auto) 16.7 L (19-41) % [place] % (Auto) 8.2 (0-10) % Eos % (Auto) 1.2 (0-5) % Baso % (Auto) 0.2 (0-1) % Absolute Neuts (auto) 4.4 (2.0-7.7) X10^3/uL Absolute Lymphs (auto) 1.00 (0.83-4.51) X10^3/ul Total Counted Not Reportable Differential Comment SCANNED Sodium 140 (136-145) mmol/L Potassium 2.8 L (3.5-5.1) mmol/L Chloride 109 H (98-107) mmol/L Carbon Dioxide 26.0 (21.0-32.0) mmol/L Anion Gap 5 (5-15) BUN 10 (7-18) mg/dL Creatinine 1.21 H (0.55-1.02) mg/dL Estim Creat Clear Calc 48.44 ml/min Est GFR (MDRD) Af Amer 57 L (>60) mL/min Est GFR (MDRD) Non-Af 47 L (>60) mL/min BUN/Creatinine Ratio 8.3 L (10-20) RATIO Glucose 140 H (74-106) mg/dL Calcium 7.2 L (8.5-10.1) mg/dL Magnesium (1.6-2.6) mg/dL Total Bilirubin (0.20-1.00) mg/dL Direct Bilirubin (0.00-0.30) mg/dL AST (15-37) U/L ALT (13-56) U/L Alkaline Phosphatase (45-117) U/L Total Protein (6.4-8.2) g/dL Albumin 1.4 L (3.2-5.0) g/dL Globulin (2.2-4.2) g/dL Assessment and Plan Left Popliteal DVT in a Pt with Ulcerative colitis and bloody diarrhea. She has a high risk for bleeding with anticoagulation. Cochran filter may be appropriate to prevent Pulmonary embolism. Prognosis is guarded, depends on whether the clot propagates. Suggestion is to obtain Vascular Consult to evaluate for Cochran Filter placement. On the other hand, can do observation with repeat Doppler to detect Propagation of clot. Will not follow further. To call if there is a new problem. Thanks. Medications: Prescriptions This Visit Medication Instructions Recorded Amlodipine [Norvasc] 5 mg PO DAILY 10/16/18 Atorvastatin Calcium [Lipitor] 20 mg PO QHS 10/16/18 Budesonide [Budesonide EC] 9 mg PO DAILY 10/16/18 Nicotine [Nicoderm] 14 mg TRANSDERM. DAILY 10/16/18 Potassium Chloride 40 meq PO DAILY 10/16/18 Sucralfate [Carafate] 1 gm PO 1HR_ACHS 10/16/18 metroNIDAZOLE [Flagyl] 500 mg PO TID 10/16/18 Medications Added to Medication List This Visit Category Date Time Status Amlodipine [Norvasc] Med 10/16/18 10:00 Active 5 mg PO DAILY Atorvastatin Calcium [Lipitor] Med 10/16/18 22:00 Active 20 mg PO QHS Clonazepam [Klonopin] Med 10/16/18 22:00 Active 0.5 mg PO QHS Meclizine HCl [Antivert] Med 10/16/18 10:40 Active 25 mg PO 4X/DAY PRN PRN Menthol/Lanolin/Calamine/Znox [Calmoseptine Ointment] Med 10/16/18 10:00 Active 1 applic TOPICAL BID Metoprolol Tartrate [Lopressor (Beta Denis)] Med 10/16/18 10:00 Active 25 mg PO BID Nicotine [Nicoderm Cq (PBKC)] Med 10/16/18 10:00 Active 14 mg TRANSDERM. DAILY Pantoprazole Sodium [Protonix] Med 10/16/18 10:00 Active 40 mg PO DAILY Potassium Chl Soln Med 10/17/18 06:00 Once 40 meq PO X1 ONE Sertraline HCl [Zoloft] Med 10/16/18 10:00 Active 50 mg PO DAILY busPIRone [Buspar] Med 10/16/18 10:00 Active 5 mg PO BID proCHLORPERazine IV [Compazine IV] Med 10/16/18 10:43 Active 5 mg IV Q6H PRN PRN Primary Care Provider: Crystal Earl Referring Provider: Som Washington MD - Problem List (1) DVT of popliteal vein Status: Acute Qualifiers: Chronicity: acute Laterality: left Qualified Code(s): I82.432 - Acute embolism and thrombosis of left popliteal vein (2) Colitis Status: Acute Code Visit Office Visits / Consults: [id number] IP Consult L5
[2018-10-16 20:29] LABS: Hematocrit 25.3 % (37-47); Hemoglobin 8.1 g/dl (12.0-15.0)
[2018-10-16] MEDS: clonazePAM 0.5 MG Tablet PO (21:22)
[2018-10-16] MEDS: Atorvastatin Calcium 20 MG Tablet PO (21:25)
[2018-10-17] VITALS (13 sets, daily range): BP systolic 116–126; BP diastolic 50–65; PULSE 66–80; RESP 16–18; TEMP 36.5–37.2; O2SAT 93–98
[2018-10-17 04:39] LABS: Hematocrit 27.2 % (37-47); Hemoglobin 8.7 g/dl (12.0-15.0)
[2018-10-17] MEDS: Dicyclomine 10 MG Capsule PO ×4 (06:21→21:37)
[2018-10-17] MEDS: Calcium Carbonate 500 MG Tablet PO ×5 (06:21→21:40)
[2018-10-17] MEDS: Sucralfate 1 GM Tablet PO ×4 (06:21→21:39)
[2018-10-17] MEDS: metroNIDAZOLE 500 MG Tablet PO ×3 (06:21→21:38)
[2018-10-17 06:48] LABS: Hematocrit 24.5 % (37-47); Hemoglobin 7.8 g/dl (12.0-15.0); Mean Corp Hgb Conc 31.8 g/gl (32-36); Mean Corpuscular Hgb 27.9 pg (27.0-32.0); Mean Corpuscular Volume 87.5 fL (81-99); Mean Platelet Vol. 9.2 fl (6.2-12.0); Platelet Count 252 K/mm3 (150-450); RBC Distribution Width CV 17.2 % (11.6-14.6); RBC Distribution Width SD 53.9 fl (35.1-43.9)
[2018-10-17 06:51] LABS: Differential Indicated MANUAL DIFF; POSITIVE COUNT YES; POSITIVE DIFFERENTIAL NO; POSITIVE MORPHOLOGY YES
[2018-10-17 07:15] LABS: Lymphocyte 18 % (19-41); Monocyte 3 % (0-10); Neutrophil-Band 1 % (0-5); Neutrophil-Segmented 78 % (47-70); Total Cells Counted 100 (MANUAL DIFF)
[2018-10-17 07:16] LABS: Anisocytosis 1+; Hypochromasia 1+; Microcytosis 1+; Platelet Estimate ADEQUATE (ADEQ); Polychromasia 1+
[2018-10-17] MEDS: Metoprolol Tartrate 25 MG Tablet PO ×2 (08:17→21:39)
[2018-10-17] MEDS: oxyCODONE 5 MG Tablet PO ×2 (08:18→14:24)
[2018-10-17] MEDS: Sertraline 50 MG Tablet PO (08:18)
[2018-10-17] MEDS: amLODIPine 5 MG Tablet PO (08:18)
[2018-10-17] MEDS: busPIRone 5 MG Tablet PO ×2 (08:19→21:38)
[2018-10-17] MEDS: Pantoprazole Sodium 40 MG Tablet PO (08:19)
[2018-10-17] MEDS: 0.9% NaCl Peripheral Flush Adult/Peds IV ×4 (09:32→17:29)
--- NOTE | 2018-10-17 09:46 | PCM.PN.HOSP ---
Patient Problems: Active and Suspected Problems (Last Reviewed 10/16/18 @ 02:48 by Som Washington MD) Inflammatory bowel disease (Acute) Dehydration (Acute) Acute renal insufficiency (Acute) DVT of popliteal vein (Acute) Subjective: Patient had about 2 bowel movements, loose in consistency but without obvious macroscopic blood on 10/16. Patient was seen by Dr. Moreno and suggested she is not candidate for anticoagulation but may think of Wil filter or observation with multiple venous Doppler for DVT Vitals/I&O's: Vital Signs Temp Pulse Resp BP Pulse Ox 98.7 F 71 18 119/65 97 10/17/18 08:05 10/17/18 09:30 10/17/18 08:05 10/17/18 08:05 10/17/18 08:05 Oxygen Delivery Method Room Air Weight: 189 lb 13.088 oz Body Mass Index (BMI) 28.0 Finger Stick Blood Glucose 199 Intake and Output for Last 24 Hours 10/15/18 10/16/18 10/17/18 23:59 23:59 23:59 Intake Total 1659.2 / 2079.2 720 / 720 Output Total 204 / 204 Balance 1455.2 / 1875.2 720 / 720 General: Alert, Oriented x3, Cooperative HEENT: Atraumatic, PERRLA, EOMI, Normocephalic Neck: Supple, No JVD, Negative Carotid Bruits Lungs: Clear to auscultation, Normal air movement, No rhonchi, No wheeze, No rales Cardiovascular: Regular rate, Regular Rhythm, Normal S1, Normal S2, No murmurs Abdomen: Bowel Sounds Present, Soft, Non-Distended, Tender - Mild tenderness on deep palpation on left upper quadrant Extremities: No edema, Capillary Refill Less than 3 Seconds Skin: No rashes, No breakdown Musculoskeletal: No Tenderness to Palpation of Joints or Extremities Neurological: Cranial nerves II-XII grossly intact Psych/Mental Status: Normal Affect, Appropriate Laboratory Results 10/16/18 00:30: Total Bilirubin 0.50, Direct Bilirubin 0.21, AST 11 L, ALT 11 L, Alkaline Phosphatase 243 H, Total Protein 4.6 L, Albumin 1.4 L, Globulin 3.2 10/16/18 09:48: Hgb 7.5 L, Hct 23.2 L 10/16/18 09:48: Sodium 143, Potassium 3.7, Chloride 111 H, Carbon Dioxide 23.0, Anion Gap 9, BUN 8, Creatinine 1.01, BUN/Creatinine Ratio 7.9 L, Glucose 155 H 10/16/18 09:48: Ionized Calcium Pending 10/16/18 14:08: Hgb 7.6 L, Hct 24.0 L 10/16/18 20:00: Hgb 8.1 L, Hct 25.3 L 10/17/18 02:26: Hgb 8.7 L, Hct 27.2 L 10/17/18 06:26: WBC 5.0, RBC 2.80 L, Hgb 7.8 L, Hct 24.5 L, MCV 87.5, MCH 27.9, MCHC 31.8 L, RDW 17.2 H, RDW Differential 53.9 H, Plt Count 252, MPV 9.2, Neut % (Auto) Not Reportable, Absolute Neuts (auto) 4.0, Absolute Lymphs (auto) 0.90, Total Counted 100, Neutrophils % (Manual) 78 H, Band Neutrophils % 1, Lymphocytes % (Manual) 18 L, Monocytes % (Manual) 3, Diff Path Review August, Platelet Estimate ADEQUATE, Polychromasia 1+, Hypochromasia 1+, Anisocytosis 1+, Microcytosis 1+ Current Medications Acetaminophen (Tylenol) 650 mg PO Q6H PRN PRN PRN Reason: Mild Pain (1-3)/Temp > 100.7 F Albuterol Sulfate (Ventolin Aerosols) 2.5 mg INHALATION Q2H PRN PRN PRN Reason: sob/wheezing Amlodipine Besylate (Norvasc) 5 mg PO DAILY [facility] Last Admin: 10/17/18 08:18 Dose: 5 mg Documented by: Atorvastatin Calcium (Lipitor) 20 mg PO QHS [facility] Last Admin: 10/16/18 21:25 Dose: 20 mg Documented by: Betamethasone Valerate (Valisone 0.1% Cream) 1 applic TOPICAL BID PRN PRN PRN Reason: RASH/TOPICAL IRRITATION Buspirone HCl (Buspar) 5 mg PO BID [facility] Last Admin: 10/17/18 08:19 Dose: 5 mg Documented by: Calamine/Phenol (Calmoseptine Ointment) 1 applic TOPICAL BID [facility]; Protocol Last Admin: 10/16/18 21:30 Dose: 1 applicatio Documented by: Calcium Carbonate (Tums) 500 mg PO Q4 [facility] Last Admin: 10/17/18 09:28 Dose: 500 mg Documented by: Clonazepam (Klonopin) 0.5 mg PO QHS [facility] Last Admin: 10/16/18 21:22 Dose: 0.5 mg Documented by: Dextrose (D50w Syringe) 0 gm IV X1 PRN; Protocol PRN Reason: Hypoglycemia Dicyclomine HCl (Bentyl) 10 mg PO ACHS [facility] Last Admin: 10/17/18 06:21 Dose: 10 mg Documented by: Glucagon () 1 mg IM .X1 PRN PRN Reason: Hypoglycemia Meclizine HCl (Antivert) 25 mg PO 4X/DAY PRN PRN PRN Reason: Dizziness/N/V Melatonin (Melatonin) 3 mg PO QHS PRN PRN PRN Reason: INSOMNIA Methylprednisolone (Solu-Medrol) 20 mg IV Q8 [facility] Last Admin: 10/17/18 06:21 Dose: 20 mg Documented by: Metoprolol Tartrate (Lopressor (Beta Denis)) 25 mg PO BID [facility] Last Admin: 10/17/18 08:17 Dose: 25 mg Documented by: Metronidazole (Flagyl) 500 mg PO TID [facility] Last Admin: 10/17/18 06:21 Dose: 500 mg Documented by: Nicotine (Nicoderm Cq (Pbkc)) 14 mg TRANSDERM. DAILY [facility] Last Admin: 10/17/18 08:17 Dose: 14 mg Documented by: Nystatin (Mycostatin Powder) 1 applic TOPICAL 4X/DAY PRN PRN; Protocol PRN Reason: RASH/TOPICAL IRRITATION Ondansetron HCl (Zofran) 4 mg IV Q8H PRN PRN PRN Reason: NAUSEA/VOMITING Last Admin: 10/16/18 06:04 Dose: 4 mg Documented by: Oxycodone HCl (Oxyir) 5 mg PO Q6H PRN PRN PRN Reason: SEVERE PAIN (6-10/10) Last Admin: 10/17/18 08:18 Dose: 5 mg Documented by: Pantoprazole Sodium (Protonix) 40 mg PO DAILY [facility] Last Admin: 10/17/18 08:19 Dose: 40 mg Documented by: Prochlorperazine Edisylate (Compazine Iv) 5 mg IV Q6H PRN PRN PRN Reason: NAUSEA/VOMITING Last Admin: 10/16/18 13:18 Dose: 5 mg Documented by: Sertraline HCl (Zoloft) 50 mg PO DAILY [facility] Last Admin: 10/17/18 08:18 Dose: 50 mg Documented by: Sodium Chloride () 5 - 15 ml IV UD PRN PRN Reason: SALINE FLUSH Last Admin: 10/17/18 09:32 Dose: 10 ml Documented by: Sucralfate (Carafate) 1 gm PO 1HR_ACHS [facility] Last Admin: 10/17/18 06:21 Dose: 1 gm Documented by: Medical Necessity - Tobacco Use Smoking Status: Current some day smoker Assessment/Plan All Active Problems (Last Reviewed 10/16/18 @ 02:48 by Som Washington MD) Colitis (Acute) Gastritis (Acute) Acute blood loss anemia (Acute) Inflammatory bowel disease (Acute) Dehydration (Acute) Acute renal insufficiency (Acute) DVT of popliteal vein (Acute) Diarrhea (Acute) Failure to thrive in adult (Acute) Shock, unspecified (Resolved) GI bleed (Acute) Acute liver failure (Resolved) Coagulopathy (Resolved) UTI (urinary tract infection) (Resolved) Hepatic encephalopathy (Resolved) Acute renal insufficiency (Resolved) Acute renal failure (Resolved) Lightheadedness (Resolved) Unsteady gait (Resolved) Headache (Resolved) Chest pain (Resolved) Weakness of both arms (Resolved) Numbness and tingling of right face (Resolved) Difficulty speaking (Resolved) NSTEMI (non-ST elevated myocardial infarction) (Resolved) Jaw pain (Resolved) The patient is a 63 year old F with a significant history of tobacco abuse; ulcerative colitis diagnosed about 8 weeks ago was admitted to [facility] with persistent diarrhea, severe anemia, hemoglobin 7.6 with baseline 13.5 g on June 2018 although slow trending down. Patient also has left leg swelling. Patient had colonoscopy which reported as colitis. 1. Acute exacerbation of ulcerative colitis: Patient is on Solu-Medrol here but at home on duodenal site. Patient follows GI/surgeon Dr. Garcia on 10/12/2018 reported as segmental inflammation of his splenic flexure and descending colon. Rectum normal. 2. Subacute severe anemia secondary to blood loss from ulcerative colitis: Patient was given iron sucrose. Hemoglobin is stable between 7 to 8 g%. 3. Hypokalemia On admission her potassium was 2.8, secondary to diarrhea. Replaced. Repeat potassium 3.7. 4. Left leg popliteal vein, tibioperoneal trunk and tibial vein DVT: Patient venous Doppler is positive. Clay Preparation Supervisor consulted. Recommendation was no anticoagulation but either IVC filter or monitoring with recurrent venous Doppler. This was discussed with patient and her significant other's in the presence of nurse. She agreed for IVC filter. Vascular surgeon Dr. Peres consulted. Patient scheduled for IVC filter tomorrow at about 10 AM. N.p.o. for the procedure. 5. Hypocalcemia Presentation her calcium was 7.2. Patient albumin is 1.4. Corrected calcium is normal 9.28. Tobacco abuse She reported she used to smoke heavily and stopped about 8 weeks ago. However every now and then she still smokes. Counseled quitting smoking. Nicotine patch continued Hypertension Blood pressure controlled. Amlodipine continued Left leg swelling Apply rafia wrap at this time. GERD Home sucralfate continued. ok to dissolve in water since patient does not want to take big pills Depression/anxiety Buspirone and Klonopin continued Code Visit Inpatient E&M: 69137 Subs Hosp L3
[2018-10-17] MEDS: Menthol/Lanolin/Calamine/Znox 113 GM Tube 1 APPLIC TOPICAL ×2 (10:47→21:38)
--- NOTE | 2018-10-17 10:57 | CASEMGMT ---
As per physician, pt is not ready for discharge today back to [facility]. SW let Faby at [facility] know, but to continue w/the precet process. SW will continue to follow. MALGORZATA [place]
[2018-10-17 14:02] LABS: Pathologist Review Reviewed
[2018-10-17] MEDS: Atorvastatin Calcium 20 MG Tablet PO (21:38)
[2018-10-17] MEDS: clonazePAM 0.5 MG Tablet PO (21:44)
[2018-10-18] VITALS (8 sets, daily range): BP systolic 108–123; BP diastolic 45–49; PULSE 69–83; RESP 18; TEMP 36.6–36.8; O2SAT 90–97
[2018-10-18] MEDS: 0.9% NaCl Peripheral Flush Adult/Peds IV (05:51)
[2018-10-18 06:47] LABS: Eosinophil# 0.04 X10^3/uL; Eosinophils% 0.6 % (0-5); Hematocrit 24.1 % (37-47); Hemoglobin 7.5 g/dl (12.0-15.0); Lymphocyte % 25.8 % (19-41); Mean Corp Hgb Conc 31.1 g/gl (32-36); Mean Corpuscular Volume 89.9 fL (81-99); Mean Platelet Vol. 9.3 fl (6.2-12.0); Monocyte# 0.47 X10^3/uL; Monocyte% 7.6 % (0-10); Neutrophil # 4.02 X10^3/uL (2.7-7.7); POSITIVE COUNT NO; POSITIVE DIFFERENTIAL NO; POSITIVE MORPHOLOGY NO; Platelet Count 300 K/mm3 (150-450); RBC Distribution Width CV 16.9 % (11.6-14.6); RBC Distribution Width SD 52.1 fl (35.1-43.9); Red Blood Count 2.68 M/mm3 (4.2-5.4); White Blood Count 6.2 K/mm3 (4.4-11.0)
[2018-10-18 06:50] LABS: International Normalized Ratio 1.6; Prothrombin Time (Protime)PT. 18.6 SECONDS (11.7-14.9)
[2018-10-18 06:51] LABS: Partial Thromboplast Time 29.6 Seconds (24.1-36.2)
--- NOTE | 2018-10-18 07:38 | PCA ---
pt off floor
--- NOTE | 2018-10-18 08:30 | OP.PCM_ITS ---
Problem List (1) DVT of popliteal vein Status: Acute Qualifiers: Chronicity: acute Laterality: left Qualified Code(s): I82.432 - Acute embolism and thrombosis of left popliteal vein Report of Operation Date of Procedure: 10/18/18 Pre-Operative Diagnosis: DVT with ulcerative colitis Post-Operative Diagnosis: The same Surgery/Procedure Performed:: 1. Ultrasound-guided access antegrade right common femoral vein. 2. Inferior vena cavogram. 3. Placement of the Esthela IVC filter Type of Anesthesia:: Sedation,Conscious Description of Procedure: Patient brought to the Chemical Supervisor. And with the appropriate timeout consent. Underwent sedation. Prepped and draped in a sterile fashion. We did ultrasound guided access antegrade into the right common femoral vein. But it Glidewire up and then a sheath. We did a inferior venacavogram. Showed where the reflux was into the renal veins. We then brought in the filter and deployed it below the level of the renal veins. This was then good position. With the hook anterior. We then removed out the sheath held pressure for 5 minutes. There is good hemostasis. She was brought to recovery stable condition. Sedation: This 63-year-old female underwent moderate sedation given by Dr. Omari Peres. She was given Versed. He was monitored for over the 30 minutes of the procedure and postoperatively. See the EMR for the complete record. She has moderate EKG blood pressure pulse ox and tolerated the procedure well
[2018-10-18] MEDS: Menthol/Lanolin/Calamine/Znox 113 GM Tube 1 APPLIC TOPICAL (08:50)
[2018-10-18] MEDS: amLODIPine 5 MG Tablet PO (08:53)
[2018-10-18] MEDS: Pantoprazole Sodium 40 MG Tablet PO (08:53)
[2018-10-18] MEDS: Metoprolol Tartrate 25 MG Tablet PO (08:53)
[2018-10-18] MEDS: Sertraline 50 MG Tablet PO (08:53)
[2018-10-18] MEDS: oxyCODONE 5 MG Tablet PO (08:57)
--- NOTE | 2018-10-18 09:04 | CASEMGMT ---
Addendum entered by Jacquelin Ibarra 10/18/18 10:30: Pt is ready for discharge today. REE called [facility] cannot continuous pickling line pickler pt today), they can continuous pickling line pickler pt via ambulette at 12pm. REE let pt, RN here know time of pickup. REE faxed all discharge paperwork to [facility], schedule II to [facility]. REE let Faby at [facility] know time of pickup via voicemail. No further needs, pt back to [facility] today. MALGORZATA [place] Original Note: REE spoke to Faby at [facility], she did get precert for pt to return, got it yesterday. If pt does not go until tomorrow a new precert will be needed. REE explained pt had procedure this morning, will speak w/physician to see if pt can be discharged today. REE also asked if [facility] would be able to provide transportation for pt to return. Faby will let this REE know. REE will continue to follow, updates faxed to [facility]. MALGORZATA [place]
--- NOTE | 2018-10-18 09:58 | PCM.TXEXTCAR ---
- Diet 10/18/18 00:00 NPO [Diet: Nothing Per Oral] Is pt able to select menu?: Yes - Routine Orders/Code Status Routine Lab Work: BMP - on 10/20/18 - Wound(s) RT KNEE Wound Type: Abrasion PEGGY ARMS Wound Type: Abrasion - Therapies Extremity Affected:: Bilateral Lower Physical Therapy: Eval and Treat Occupational Therapy: Eval and Treat Speech Therapy: Eval and Treat - Allergies/Procedures Done in Hospital Allergies/Adverse Reactions: Allergies duloxetine HCl [From Cymbalta] Adverse Reaction (Verified 10/16/18 03:22) Other pt doesn't remember morphine Adverse Reaction (Verified 10/15/18 23:59) Itching pramipexole di-HCl [From Mirapex] Adverse Reaction (Verified 10/16/18 03:22) Other pt doesn't remember Sulfa (Sulfonamide Antibiotics) Adverse Reaction (Verified 10/15/18 23:59) Unknown tramadol HCl [From Ultram] Adverse Reaction (Verified 10/15/18 23:59) Itching varenicline [From Chantix] Adverse Reaction (Verified 10/15/18 23:59) Unknown - Type of Care/Length of Stay Estimated LOS: Convalescent Care Less Than 30 days Type of Care Needed: Skilled Rehab Potential: Good Prognosis: Good - Additional Orders/Day of Discharge Day of Discharge: 10/18/18 - Dietary and Speech Recommendations Dietitian Recommendations/Changes: Recommend diet change to No Gastric Stimulant/Cardiac. - Follow Up Care Primary Care Physician: Crystal Earl MD [Primary Care Provider] - Please follow up with your Primary Care Physician in: in 1-2 week Please Follow Up With: Gary Garcia MD When: in 1-2 week. Need GI referral for Ulcerative colitis
[2018-10-18] MEDS: Dicyclomine 10 MG Capsule PO (12:08)
--- NOTE | 2018-10-18 12:47 | NURSING ---
called report to Negin at [facility] at this time. call back number given. notified that patient is on her way.
--- NOTE | 2018-10-18 13:00 | DS.PCM_ITS ---
Discharge Date and Diagnosis Date of Admission: 10/16/18 Date of Discharge: 10/18/18 - Primary Discharge Diagnosis Active and Suspected Problems (Last Reviewed 10/16/18 @ 02:48 by Som Washington MD) Inflammatory bowel disease (Acute) Dehydration (Acute) Acute renal insufficiency (Acute) DVT of popliteal vein (Acute) - Secondary Discharge Diagnosis Chronic Problems (Last Reviewed 10/16/18 @ 02:48 by Som Washington MD) Chronic anemia (Chronic) Renal insufficiency (Chronic) Anemia, chronic disease (Chronic) Essential hypertension (Chronic) Frequent falls (Chronic) Cardiomyopathy (Chronic) Tobacco use disorder (Chronic) Esophageal reflux (Chronic) Depressive disorder (Chronic) Back ache (Chronic) Irritable bowel syndrome (IBS) (Chronic) Anxiety disorder (Chronic) Hospital Course and Treatment Operations: None Summary of Care Provided: [] The patient is a 63 year old F with a significant history of tobacco abuse; ulcerative colitis diagnosed about 8 weeks ago was admitted to [facility] with persistent diarrhea, severe anemia, hemoglobin 7.6 with baseline 13.5 g on June 2018 although slow trending down. Patient also has left leg swelling. Patient had colonoscopy which reported as colitis. 1. Acute exacerbation of ulcerative colitis: Patient is on Solu-Medrol here but at home on duodenal site. Patient follows GI/surgeon Dr. Garcia on 10/12/2018 reported as segmental inflammation of his splenic flexure and descending colon. Rectum normal. Resolved. Patient is discharged on Entocort EC. Follow with Dr. Grimaldo referred to hand stoner for outpatient Biologics. 2. Subacute severe anemia secondary to blood loss from ulcerative colitis: Patient was given iron sucrose. Hemoglobin is stable between 7 to 8 g%. No further GI blood loss. Discharged on ferrous sulfate. 3. Hypokalemia On admission her potassium was 2.8, secondary to diarrhea. Replaced. Repeat potassium 3.7. 4. Left leg popliteal vein, tibioperoneal trunk and tibial vein DVT: Patient venous Doppler is positive. Medical Device Assembler consulted. Recommendation was no anticoagulation but either IVC filter or monitoring with recurrent venous Doppler. This was discussed with patient and her significant other's in the presence of nurse agreed for the IVC filter. Patient had IVC filter by Dr. Peres today. Advised to lay down for 3 hours post procedure. 5. Hypocalcemia Presentation her calcium was 7.2. Patient albumin is 1.4. Corrected calcium is normal 9.28. Tobacco abuse She reported she used to smoke heavily and stopped about 8 weeks ago. However every now and then she still smokes. Counseled quitting smoking. Nicotine patch continued Hypertension Blood pressure controlled. Amlodipine continued Left leg swelling Apply rafia wrap at this time. GERD Home sucralfate continued. ok to dissolve in water since patient does not want to take big pills Depression/anxiety Buspirone and Klonopin continued Discharge medication reconciliation done. Discharge follow-up instructions completed. Discharge process discussed with the patient and all questions were answered to patient's satisfaction. Patient is being discharged to SNF. Follow-up BMP and CBC as recommended by PCP. Total time spent, exact 35 minutes on discharge meds reconciliation, examination, review of imaging and blood test and discussion with the patient on follow-up instructions. Subjective: Seen and examined. Patient did not have further diarrhea or rectal bleed. No abdominal pain. Patient had IVC filter by Dr. Peres in the morning. - Physical Exam General: Alert, Oriented x3, Cooperative HEENT: Atraumatic, PERRLA, EOMI, Normocephalic Neck: Supple, No JVD, Negative Carotid Bruits Lungs: Clear to auscultation, No rhonchi, No wheeze, No rales, Diminished Cardiovascular: Regular rate, Regular Rhythm, Normal S1, No murmurs Abdomen: Bowel Sounds Present, Soft, Non Tender, Non-Distended Extremities: Capillary Refill Less than 3 Seconds, Edema - Unilateral left leg swelling secondary to DVT Skin: No rashes, No breakdown Musculoskeletal: No Tenderness to Palpation of Joints or Extremities, Arthritic Changes Neurological: Cranial nerves II-XII grossly intact Psych/Mental Status: Normal Affect, Appropriate Vital Signs Temp Pulse Resp BP Pulse Ox 98.3 F 83 18 123/45 H 97 10/18/18 08:38 10/18/18 08:53 10/18/18 08:38 10/18/18 08:38 10/18/18 08:38 Oxygen Delivery Method Room Air Weight: 189 lb 13.088 oz Body Mass Index (BMI) 28.0 Finger Stick Blood Glucose 199 Intake and Output for Last 24 Hours 10/16/18 10/17/18 10/18/18 23:59 23:59 23:59 Intake Total 1659.2 / 2079.2 1320 / 1320 Output Total 204 / 204 Balance 1455.2 / 1875.2 1320 / 1320 Laboratory Tests Past 24 Hrs 10/17/18 10/18/18 10/18/18 06:26 06:30 06:30 WBC 6.2 RBC 2.68 L Hgb 7.5 L Hct 24.1 L MCV 89.9 MCH 28.0 MCHC 31.1 L RDW 16.9 H RDW Differential 52.1 H Plt Count 300 MPV 9.3 Immature Gran % (Auto) 1.000 H Neut % (Auto) 65.0 Lymph % (Auto) 25.8 [place] % (Auto) 7.6 Eos % (Auto) 0.6 Baso % (Auto) 0.0 Absolute Neuts (auto) 4.0 Absolute Lymphs (auto) 1.60 Total Counted Not Reportable Diff Path Review Reviewed PT 18.6 H INR 1.6 APTT 29.6 Home Medications: Medications to take at Discharge RX: Nitroglycerin [Nitrostat] 0.4 mg SL PRN PRN 08/20/13 RX: Clonazepam [Klonopin] 0.5 mg PO QHS 08/14/15 RX: Metoprolol Tartrate [Lopressor (beta codie)] 25 mg PO BID 08/14/15 RX: Dicyclomine HCl [Bentyl] 10 mg PO ACHS 09/08/17 RX: Triamcinolone 0.025% Cream [Kenalog] 1 applic TOPICAL BID PRN 09/08/17 RX: Nystatin Powder [Mycostatin Powder] 1 applic TOPICAL 4X/DAY PRN PRN 07/16/18 RX: Albuterol Inhaler [Ventolin Hfa] 2 puff INHALATION Q4H PRN PRN 07/27/18 bisacodyl 10 mg rectal suppository 10 mg RC DAILY PRN PRN 08/28/18 calcium carbonate 200 mg calcium (500 mg) chewable tablet 200 mg PO Q4H PRN tab 08/28/18 omeprazole 40 mg capsule,delayed release 40 mg PO DAILY cap 08/28/18 sertraline 50 mg tablet 150 mg PO DAILY tab 08/28/18 RX: Ondansetron [Zofran Odt] 4 mg PO Q8H PRN PRN #10 tab 09/25/18 RX: Acetaminophen [Tylenol Tablet] 650 mg PO Q6H PRN PRN tablet 10/13/18 RX: Amlodipine [Norvasc] 5 mg PO DAILY 10/16/18 RX: Atorvastatin Calcium [Lipitor] 20 mg PO QHS 10/16/18 RX: Budesonide [Budesonide EC] 9 mg PO DAILY 10/16/18 RX: Nicotine [Nicoderm] 14 mg TRANSDERM. DAILY 10/16/18 RX: Sucralfate [Carafate] 1 gm PO 1HR_ACHS 10/16/18 RX: Oxycodone [Oxyir] 5 mg PO Q6H PRN PRN 5 Days #20 tab 10/18/18 RX: busPIRone [Buspar] 5 mg PO BID #14 tab 10/18/18 RX: metroNIDAZOLE [Flagyl] 500 mg PO TID #0 10/18/18 Following Prescrptions Were Given to Patient: RX: busPIRone [Buspar] 5 mg PO BID #14 tab Prescription Printed Primary Care Physician: Crystal Earl MD [Primary Care Provider] - Please follow up with your Primary Care Physician in: in 1-2 week Please Follow Up With: Gary Garcia MD When: in 1-2 week. Need GI referral for Ulcerative colitis Medical Necessity - Tobacco Use Smoking Status: Current some day smoker Meaningful Use Info Meaningful Use Diagnoses (Choose all that apply): None applicable Code Visit Inpatient E&M: 57274 Disch Hosp
== END 2018-10-18 12:33 | disposition skilled nursing facility (03) | DRG 245 ==
LOC: ED 10-16 01:24 → MS3 10-16 02:07
PROVIDERS: Anesthesiology; Admitting Provider Hospitalist; Emergency Provider Emergency Medicine; Family Provider Internal Medicine; PCP Internal Medicine; Referring Provider Hospitalist; Visit Provider Internal Medicine
DX: K51.911 Ulcerative colitis, unspecified with rectal bleeding (principal); E87.6 Hypokalemia; E83.51 Hypocalcemia; K21.9 Gastro-esophageal reflux disease without esophagitis; I82.432 Acute embolism and thrombosis of left popliteal vein; I82.442 Acute embolism and thrombosis of left tibial vein; I82.4Z2 Acute embolism and thrombosis of unspecified deep veins of left distal lower extremity; E86.0 Dehydration; F41.9 Anxiety disorder, unspecified; F32.9 Major depressive disorder, single episode, unspecified; D50.0 Iron deficiency anemia secondary to blood loss (chronic); I42.9 Cardiomyopathy, unspecified; R29.6 Repeated falls; Z72.0 Tobacco use; K52.9 Noninfective gastroenteritis and colitis, unspecified; K29.70 Gastritis, unspecified, without bleeding; I25.10 Atherosclerotic heart disease of native coronary artery without angina pectoris; I12.9 Hypertensive chronic kidney disease with stage 1 through stage 4 chronic kidney disease, or unspecified chronic kidney disease; N18.3 Chronic kidney disease, stage 3 (moderate); D62 Acute posthemorrhagic anemia; D68.9 Coagulation defect, unspecified; I25.2 Old myocardial infarction; R62.7 Adult failure to thrive
CPT/HCPCS: 36415; 37191; 76937; 80047; 80048; 80076; 82040; 82962; 83735; 85014; 85018; 85025; 85027; 85610; 85730; 93970; 96361; 97162; 97166; 97530; 97535; 97802; 99152; 99285; 99406; J1756; J7030; J7120; Q9967; A4216; C1769; C1880; J2405

== ENCOUNTER 2018-11-04 10:02 | Outpatient (CLI) | payer MEDICAID, SELFPAY ==
[2018-10-16 03:19] VITALS: BMI 28.0
--- NOTE | 2018-11-04 13:30 | NURSING ---
DR RIVERA NOTIFIED OF INABILITY TO GAIN IV ACCESS FOR BLOOD TRANSFUSION X4 NURSES & A TOTAL OF APPROX 12 ATTEMPTS. ORDERED MIDLINE TO BE PLACED.
[2018-11-04 14:00] VITALS: BP 125/45; PULSE 86; RESP 18; TEMP 36.7; O2SAT 100
--- NOTE | 2018-11-04 15:23 | NURSING ---
At 1350 [facility] was notified that we are having trouble accessing pt for an IV to start 2units of PRBC.. Informed that we have consumer safety inspector coming to place a midline and will call them when we start 2nd unit so they have a rough time of her returning.. asked how pt was transported to hospital - they used [place] - was informed if she comes back late that we may need to use EMS to bring back to SW
== END 2018-11-04 17:15 | disposition skilled nursing facility (03) ==
LOC: MEDOUTP 10:02 → MS3 10:03
PROVIDERS: Family Provider Internal Medicine; PCP Internal Medicine; Referring Provider Internal Medicine; Visit Provider Internal Medicine
DX: D64.9 Anemia, unspecified (principal)
CPT/HCPCS: 36415; 86850; 86900; 86920; 86922

== ENCOUNTER 2018-11-05 09:15 | Outpatient (CLI) | payer MEDICAID, SELFPAY ==
[2018-10-16 03:19] VITALS: BMI 28.0
[2018-11-05] VITALS (8 sets, daily range): BP systolic 118–134; BP diastolic 40–84; PULSE 76–90; RESP 16–17; TEMP 36.8–37.2; O2SAT 94–99
--- NOTE | 2018-11-05 09:40 | NURSING ---
warehouse shipping associate here to insert midline for 2units of blood
== END 2018-11-05 16:53 | disposition home or self-care (01) ==
LOC: MS3OUT 09:17 → MS3 09:17
PROVIDERS: Family Provider Internal Medicine; PCP Internal Medicine; Visit Provider Internal Medicine
DX: D64.9 Anemia, unspecified (principal)
CPT/HCPCS: 36415; 36430; 86850; 86900; 86920; 86922; J7040; P9016

== ENCOUNTER 2019-01-29 16:35 | Emergency (ER) | payer MEDICAID, SELFPAY ==
[2018-10-16 03:19] VITALS: BMI 28.0
[2019-01-29 16:40] VITALS: BP 151/66; PULSE 92; RESP 13; TEMP 37.1; O2SAT 94; BMI 29.9
[2019-01-29 16:45] VITALS: BMI 29.9
--- NOTE | 2019-01-29 16:58 | ED.RN ---
PT STATES SHE CHECKED OUT OF [facility] A[facility]. STATES SHE DID NOT LIKE ALL THE THERAPY THEY MADE HER DO, DID NOT LIKE THE THERAPISTS EITHER. PT ASKS OF SHE CAN CHECK OUT HERE AMA. THIS NURSE ASKED PT TO AT LEAST SPEAK TO A MD PRIOR TO SIGNING OUT. PT AGREES.
--- NOTE | 2019-01-29 17:30 | ED.RN ---
PT SIGNED OUT AMA, IV REMOVED, ASSISTED PT TO BATHROOM THEN ASSISTED INTO BOYFRIENDS VEHICLE. PT AND BOYFRIEND VOICE UNDERSTANDING TO RETURN FOR ANY CONCERNS OR WORSENING CONDITIONS.
--- NOTE | 2019-01-29 19:12 | ED.VIS.GEN ---
History of Present Illness Narrative: 53-year-old female with past medical history of CVA, hypertension presents with concern for stuttering symptoms. Patient brought in by EMS after landlord and home nursing was concerned that she was having episodes of stuttering throughout the week. Patient does not wish to be worked up for this issue. She does wish to leave AMA. <Ritesh Garvin - Last Filed: 01/29/19 19:12> <Sheldon Coles - Last Filed: 01/29/19 22:12> Chief Complaint: Neuro S/Sx Past Medical History Prior records reviewed: Yes Surgical History: - - All teeth pulled put. Smoking Status: Current some day smoker - Family History Maternal Family History: Family History (Last Reviewed 10/16/18 @ 02:49 by Som Washington MD) Other Adopted Family History: Reports: - - Patient was adopted Paternal Family History: Family History (Last Reviewed 10/16/18 @ 02:49 by Som Washington MD) Other Adopted Family History: Reports: No pertinent history, - - Patient was adopted <YangaurangRitesh - Last Filed: 01/29/19 19:12> - Family History Maternal Family History: Family History (Last Reviewed 10/16/18 @ 02:49 by Som Washington MD) Other Adopted Paternal Family History: Family History (Last Reviewed 10/16/18 @ 02:49 by Som Washington MD) Other Adopted <Sheldon Coles - Last Filed: 01/29/19 22:12> - Allergies and Home Meds Allergies/Adverse Reactions: Allergies duloxetine HCl [From Cymbalta] Adverse Reaction (Verified 01/29/19 16:43) Other pt doesn't remember morphine Adverse Reaction (Verified 01/29/19 16:43) Itching pramipexole di-HCl [From Mirapex] Adverse Reaction (Verified 01/29/19 16:43) Other pt doesn't remember Sulfa (Sulfonamide Antibiotics) Adverse Reaction (Verified 01/29/19 16:43) Unknown tramadol HCl [From Ultram] Adverse Reaction (Verified 01/29/19 16:43) Itching varenicline [From Chantix] Adverse Reaction (Verified 01/29/19 16:43) Unknown Primary Care Physician: Crystal Earl MD [Primary Care Provider] - Review of Systems General: Denies: Chills, Fever, Sweats Eyes: Denies: Visual changes - bilaterally, Diplopia ENT: Denies: Rhinorrhea, Sore throat Cardiovascular: Denies: Chest pain, Palpitations Respiratory: Denies: Dyspnea, Cough, Dyspnea on exertion Gastrointestinal: Denies: Abdominal pain, Nausea, Vomiting, Diarrhea, Melena, Hematochezia Genitourinary: Denies: Dysuria, Hematuria, Frequency Musculoskeletal: Denies: Back pain, Extremity Pain Skin: Denies: Rash, Wounds Neurological: Denies: Headache, Weakness, Numbness - Stuttering <Ritesh Garvin - Last Filed: 01/29/19 19:12> Physical Exam Vital Signs/Narrative: Vital Signs Temp Pulse Resp BP Pulse Ox 01/29/19 16:40 98.8 F 92 13 151/66 H 94 General: Well nourished, Well developed, No Acute Distress Head: Normocephalic, Atraumatic Eyes: Perrl, EOMI ENT: Moist mucous membranes, No rhinorrhea Neck: Supple, Nontender Cardiovascular: Regular rate, Regular rhythm, No murmurs Respiratory: No distress, CTA bilaterally, Chest nontender Abdomen: Soft, Nontender, Nondistended, Normal bowel sounds Back: Nontender, Normal Inspection Extremities: Nontender, No edema Skin: Normal color, No rash Neurological: Alert, Oriented x3, Cranial nerves II-XII grossly intact, Normal Strength, Normal Sensation Psychological: Normal affect, Normal Mood <Ritesh Garvin - Last Filed: 01/29/19 19:12> Diagnostic/Tx/Re-eval - Medical Decision Making Appears well nontoxic. Vital signs within normal limits. Medical screening exam performed. Patient is alert and oriented x3 and wishes to leave AGAINST MEDICAL ADVICE. <Ritesh Garvin - Last Filed: 01/29/19 19:12> - Medical Decision Making Patient presents with stuttering. She was referred to the ED for possible stroke. Patient denies any other stroke symptoms. She told the resident that she wanted to leave. I spoke with her. She said she had dealt with the symptoms in the past. She did not want to be in a intermediate. She did not want to spend on her savings. She feels that she can cope with her symptoms at home. She says she will return if she has any new or worsening issues. She has an occasional stutter, but otherwise her exam is unremarkable. She is alert and oriented. She is not under any outside influence. She is capable of making her decisions. She will sign out AGAINST MEDICAL ADVICE. <Sheldon Coles - Last Filed: 01/29/19 22:12> ED Disposition <Ritesh Garvin - Last Filed: 01/29/19 19:12> <Sheldon Coles - Last Filed: 01/29/19 22:12> - Plan for ED Patient: Disposition: Home or Assisted Living Diagnosis: Stuttering Referrals: Crystal Earl MD [Primary Care Provider] -
== END 2019-01-29 17:31 | disposition home or self-care (01) ==
PROVIDERS: Emergency Provider Emergency Medicine; Family Provider Internal Medicine; PCP Internal Medicine
DX: F98.5 Adult onset fluency disorder (principal); I10 Essential (primary) hypertension; Z86.73 Personal history of transient ischemic attack (TIA), and cerebral infarction without residual deficits; F17.200 Nicotine dependence, unspecified, uncomplicated
CPT/HCPCS: 99283

== ENCOUNTER 2019-08-05 00:58 | Inpatient (IN) | payer MEDICAID, SELFPAY ==
[2019-08-05] VITALS (10 sets, daily range): BP systolic 90–134; BP diastolic 51–66; PULSE 92–114; RESP 15–24; TEMP 36.6–37; O2SAT 88–100; BMI 31.6; BMI 30.1
--- NOTE | 2019-08-05 01:10 | CT_ITS ---
STUDY: CT ABDOMEN AND PELVIS WITHOUT CONTRAST REASON FOR EXAM: Female, 64 years old. PT STATED FALL, BACK PAIN, SHORT OF BREATH RADIATION DOSAGE (If Supplied By Facility): CTDIvol = ( 15.56 ) mGy, DLP = ( 808.51 ) mGycm TECHNIQUE: Transaxial images were obtained from the dome of the diaphragm to the symphysis pubis without oral contrast, and without intravenous contrast. Sagittal and coronal images were reconstructed. Individualized dose optimization techniques were used for this CT. COMPARISON: None. FINDINGS: Mild right-sided pleural effusion with right lower lobe atelectasis. Normal cardiac size. Normal liver. Normal gallbladder and extrahepatic biliary system. Normal spleen. Normal pancreas. Normal bilateral adrenal glands. Nonspecific bilateral perinephric stranding. Otherwise normal right kidney. Normal left kidney. Normal visualized stomach. Normal small intestine. Normal colon. The appendix is visualized and appears normal. There is diffuse atherosclerotic calcification of the abdominal aorta, without a demonstrated aneurysm. IVC filter is seen in place. Diffuse retroperitoneal stranding/inflammation which may be due to thrombophlebitis if patient has history of venous thrombosis. Heterogeneity with stranding surrounding the IVC demonstrated as well as bilateral iliac veins, left more than right. Unary bladder is decompressed. The uterus is anteverted and atrophic. Normal abdominal wall. Degenerative disease of the spine with osteopenia. Diffuse stranding/inflammation involving the subcutaneous fat of bilateral upper thighs left more than right. Mild stranding along the presacral region, nonspecific. CT/Abdomen/Pelvis without Cont IMPRESSION: Nonspecific bilateral perinephric stranding, otherwise unremarkable abdominal viscera. IVC filter in place with heterogeneity of the inferior vena cava below this level and iliac veins, left more than right. These findings are suggestive of thrombosis/thrombophlebitis. Stranding/inflammation in the retroperitoneal region surrounding the aorta and inferior vena cava which may be related to underlying thrombosis/thrombophlebitis. Diffuse edema/swelling involving the lateral upper thigh and buttock region, left more than right. Electronically Signed: Viri Yusuf MD at 3:06 EDT , Service support ,
--- NOTE | 2019-08-05 01:10 | EKG12_ITS ---
Test Reason : DYSRHYTHMIA Blood Pressure : / mmHG Vent. Rate : 112 BPM Atrial Rate : 112 BPM P-R Int : 192 ms QRS Dur : 124 ms QT Int : 346 ms P-R-T Axes : 083 -43 087 degrees QTc Int : 472 ms Sinus tachycardia Left axis deviation Left bundle branch block Abnormal ECG Confirmed by MILTON ARREOLA, JORY ([id number]), editorial manager ITZEL QUAN ([id number] on 08/07/2019 2:43:24 PM Referred By: FRANCISCO Confirmed By:JORY ROSE MD
--- NOTE | 2019-08-05 01:12 | ED.VIS.GEN ---
History of Present Illness Chief Complaint: Fall Informant: Patient Onset: Today Current Severity: Mild Maximum Severity: Moderate Narrative: Patient presents secondary to fall from bed. She states she rolled out of bed and landed on her buttocks. She has a history of chronic back pain but states back pain is worse. She has had problems with generalized weakness for the past several days with some dysuria. She also reports increased swelling in her legs. She has a history of chronic left lower extremity edema but is noted increasing right lower extremity edema as well. Patient denies fever or chills. She states that with her weakness she has had a very hard time getting around at home. Her boyfriend has been able to help with her with meals. - Past Medical History (1) DVT of popliteal vein Status: Chronic (2) Failure to thrive in adult Status: Chronic (3) Inflammatory bowel disease Status: Chronic (4) Anemia, chronic disease Status: Chronic (5) Anxiety disorder Status: Chronic (6) Cardiomyopathy Status: Chronic (7) Depressive disorder Status: Chronic (8) Esophageal reflux Status: Chronic (9) Essential hypertension Status: Chronic (10) NSTEMI (non-ST elevated myocardial infarction) Status: Resolved Past Medical History - Allergies and Home Meds Allergies/Adverse Reactions: Allergies duloxetine HCl [From Cymbalta] Adverse Reaction (Verified 08/05/19 01:02) Other pt doesn't remember morphine Adverse Reaction (Verified 08/05/19 01:02) Itching pramipexole di-HCl [From Mirapex] Adverse Reaction (Verified 08/05/19 01:02) Other pt doesn't remember Sulfa (Sulfonamide Antibiotics) Adverse Reaction (Verified 08/05/19 01:02) Unknown tramadol HCl [From Ultram] Adverse Reaction (Verified 08/05/19 01:02) Itching varenicline [From Chantix] Adverse Reaction (Verified 08/05/19 01:02) Unknown Primary Care Physician: Crystal Earl MD [Primary Care Provider] - Prior records reviewed: Yes Surgical History: - - All teeth pulled put. Lives: Spouse/ Significant Other Smoking Status: Current every day smoker - Family History Maternal Family History: Family History (Last Reviewed 10/16/18 @ 02:[address] Som Washington MD) Other Adopted Family History: Reports: - - Patient was adopted Paternal Family History: Family History (Last Reviewed 10/16/18 @ 02:[address] Som Washington MD) Other Adopted Family History: Reports: No pertinent history, - - Patient was adopted Review of Systems General: Denies: Chills, Fever Eyes: Denies: Visual changes - bilaterally ENT: Denies: Bilateral ear pain Cardiovascular: Denies: Chest pain Respiratory: Denies: Dyspnea, Cough Gastrointestinal: Denies: Abdominal pain, Nausea, Vomiting, Diarrhea Genitourinary: Reports: Dysuria Skin: Denies: Wounds Neurological: Reports: Weakness Hematologic: Denies: Easy bruising, Easy bleeding Allergy: Denies: Uticaria Physical Exam Vital Signs/Narrative: Vital Signs Temp Pulse Resp BP Pulse Ox 08/05/19 00:58 98.4 F 114 H 15 134/60 H 97 Inital Vital Signs reviewed: Yes General: Well nourished, Well developed Head: Normocephalic ENT: Moist mucous membranes Neck: Supple, Nontender Cardiovascular: Regular rhythm, Tachycardia Respiratory: No distress, CTA bilaterally Abdomen: Soft, Nontender Extremities: Edema - 3+ left lower extremity edema. 1+ right lower extremity edema. Legs are discolored and purple in nature. She does have palpable distal pulses. No open wounds are noted. Neurological: Alert, Oriented x3 Psychological: Normal affect Diagnostic/Tx/Re-eval Impressions Abdomen/Pelvis CT 08/05/19 01:10 IMPRESSION: Nonspecific bilateral perinephric stranding, otherwise unremarkable abdominal viscera. IVC filter in place with heterogeneity of the inferior vena cava below this level and iliac veins, left more than right. These findings are suggestive of thrombosis/thrombophlebitis. Stranding/inflammation in the retroperitoneal region surrounding the aorta and inferior vena cava which may be related to underlying thrombosis/thrombophlebitis. Diffuse edema/swelling involving the lateral upper thigh and buttock region, left more than right. Electronically Signed: Viri Yusuf MD at 3:06 EDT , Service support , Chest CT 08/05/19 02:21 IMPRESSION: Mild right-sided pleural effusion with mild right lower lobe atelectasis. Diffuse small airway disease as described. No pneumothorax. Vascular congestion versus atypical interstitial lung disease. Degenerative disease of the spine with no acute fracture. Electronically Signed: Viri Yusuf MD at 3:00 EDT , Service support , 08/05/19 01:10 Abdomen/Pelvis without Cont [CT] Stat 08/05/19 02:21 CT Chest [Chest without Contrast] [CT] Stat Laboratory Results 08/05/19 08/05/19 08/05/19 01:06 01:06 01:06 WBC 20.6 H RBC 5.15 Hgb 11.5 L Hct 40.3 MCV 78.3 L MCH 22.3 L MCHC 28.5 L RDW Std Deviation 54.4 H RDW Coeff of Gabriel 20.0 H Plt Count 336 MPV 9.8 Immature Gran % (Auto) 0.700 Neut % (Auto) 87.5 H Lymph % (Auto) 5.2 L Valencia % (Auto) 6.4 Eos % (Auto) 0.0 Baso % (Auto) 0.2 Absolute Neuts (auto) 18.0 H Absolute Lymphs (auto) 1.06 Nucleated RBC % 0 PT 18.0 H INR 1.5 APTT 28.6 Sodium 134 L Potassium 4.5 Chloride 103 Carbon Dioxide 21.0 Anion Gap 10 BUN 22 H Creatinine 1.63 H Estim Creat Clear Calc 35.48 Est GFR (MDRD) Af Amer 41 L Est GFR (MDRD) Non-Af 34 L BUN/Creatinine Ratio 13.5 Glucose 205 H Calcium 9.6 Total Bilirubin 1.00 Direct Bilirubin 0.34 H AST 9 L ALT 10 L Alkaline Phosphatase 132 H B-Natriuretic Peptide Total Protein 8.1 Albumin 3.7 Globulin 4.4 H Urine Color Urine Clarity Urine pH Ur Specific Napoleon Urine Protein Urine Glucose (UA) Urine Ketones Urine Occult Blood Urine Nitrite Urine Bilirubin Urine Urobilinogen Ur Leukocyte Esterase Urine RBC Urine WBC Ur Squamous Epith Cells Urine Bacteria Urine Mucus Urine Yeast 08/05/19 08/05/19 01:06 01:10 WBC RBC Hgb Hct MCV MCH MCHC RDW Std Deviation RDW Coeff of Gabriel Plt Count MPV Immature Gran % (Auto) Neut % (Auto) Lymph % (Auto) Valencia % (Auto) Eos % (Auto) Baso % (Auto) Absolute Neuts (auto) Absolute Lymphs (auto) Nucleated RBC % PT INR APTT Sodium Potassium Chloride Carbon Dioxide Anion Gap BUN Creatinine Estim Creat Clear Calc Est GFR (MDRD) Af Amer Est GFR (MDRD) Non-Af BUN/Creatinine Ratio Glucose Calcium Total Bilirubin Direct Bilirubin AST ALT Alkaline Phosphatase B-Natriuretic Peptide 554.2 H Total Protein Albumin Globulin Urine Color Yellow Urine Clarity Clear Urine pH 5.0 Ur Specific Napoleon 1.020 Urine Protein 30 H Urine Glucose (UA) Normal Urine Ketones Negative Urine Occult Blood 10 H Urine Nitrite Negative Urine Bilirubin 1 H Urine Urobilinogen 1 H Ur Leukocyte Esterase 500 H Urine RBC 10-25 SEEN Urine WBC 25-50 SEEN Ur Squamous Epith Cells 5-10 SEEN Urine Bacteria RARE Urine Mucus 0 SEEN Urine Yeast RARE - EKG Initial EKG Interpretation: Sinus Tachycardia - Sinus tach at 112. Left bundle branch block noted. - Medical Decision Making Patient was given 0.5 mg of Dilaudid and 4 mg of Zofran to control her back pain. She does have a morphine allergy. Patient did require nasal cannula for O2 sat of 88% after pain medication was given. CT scan of the flank was obtained. This reveals nonspecific perinephric stranding. No fracture or injury from the fall. With the patient's degree of leg discoloration I was initially concerned for cerulea dolens. With leg elevation leg coloration has significantly improved. Patient does have an IVC filter in place and I was able to review the surgical notes from that placement. Patient did have blood and urine cultures sent. She was given a dose of IV Rocephin for UTI. Patient will be discussed with hospitalist for admission and treatment of urinary tract infection and generalized weakness causing fall. ED Disposition - Plan for ED Patient: Disposition: Acute Care Hospital [facility] Diagnosis: UTI (urinary tract infection), Weakness, Fall Referrals: Crystal Earl MD [Primary Care Provider] -
[2019-08-05 01:25] LABS: International Normalized Ratio 1.5
[2019-08-05 01:26] LABS: Partial Thromboplast Time 28.6 Seconds (24.1-36.2)
[2019-08-05 01:30] LABS: Mucous, Urine 0 SEEN /hpf (<or=2+)
[2019-08-05 01:34] LABS: Glucose, Dipstick Normal (Normal); Ketone-Dipstick Negative (Negative); Leukocyte Esterase-Dipstick 500 /ul (Negative); Nitrite-Dipstick Negative (Negative); Occult Blood-Urine 10 /ul (Negative); Protein-Dipstick 30 mg/dl (Negative); Urine Urobilinogen 1 mg/dl (Normal)
[2019-08-05 01:37] LABS: Color, Urine Yellow (Yellow); Urine Bilirubin Dipstick 1 mg/dL (Negative); Urine Clarity Clear (Clear)
[2019-08-05 01:38] LABS: Absolute Lymphocyte Count 1.06 X10^3/uL (0.83-4.51); Basophil# 0.04 X10^3/uL; Basophil% 0.2 % (0-1); Eosinophil# 0.01 X10^3/uL; Hematocrit 40.3 % (37-47); Hemoglobin 11.5 g/dL (12.0-15.0); Lymphocyte # 1.06 X10^3/ul (4.0); Lymphocyte % 5.2 % (19-41); Mean Corp Hgb Conc 28.5 g/dL (32-36); Mean Corpuscular Hgb 22.3 pg (27.0-32.0); Mean Corpuscular Volume 78.3 fL (81-99); Mean Platelet Vol. 9.8 fl (6.2-12.0); Monocyte# 1.31 X10^3/uL; Monocyte% 6.4 % (0-10); NRBC Flagged by Analyzer 0 % (0-5); Neutrophil # 18.02 X10^3/uL (2.7-7.7); Neutrophil % 87.5 % (47-70); Platelet Count 336 K/mm3 (150-450); RBC Distribution Width SD 54.4 fl (35.1-43.9); Red Blood Count 5.15 M/mm3 (4.2-5.4); White Blood Count 20.6 K/mm3 (4.4-11.0)
[2019-08-05 01:41] LABS: Bacteria RARE /hpf (None Seen); Red Blood Cells-Urine 10-25 SEEN /hpf (0-5); Squamous Epithelial Cells - UA 5-10 SEEN /hpf (5-10); White Blood Cells 25-50 SEEN /hpf (0-5); Yeast-Urine RARE /hpf (None Seen)
[2019-08-05 02:04] LABS: AST(SGOT) 9 U/L (15-37); Alanine Aminotransfer ALT/SGPT 10 U/L (13-56); Albumin, Serum 3.7 g/dL (3.2-5.0); Alkaline Phosphatase 132 U/L (45-117); Anion Gap 10 (5-15); BUN 22 mg/dL (7-18); BUN/Creat Ratio 13.5 RATIO (10-20); Bilirubin, Direct 0.34 mg/dL (0.00-0.30); Calcium,Total 9.6 mg/dL (8.5-10.1); Chloride 103 mmol/L (98-107); Creatinine, Serum 1.63 mg/dL (0.55-1.02); EST Glomerular Filtration Rate 34 mL/min (>60); Est Glom Filt Rate - Afr Amer 41 mL/min (>60); Estimated Creatinine Clearance 35.48 ml/min; Globulin 4.4 g/dL (2.2-4.2); Glucose 205 mg/dL (74-106); Potassium 4.5 mmol/L (3.5-5.1); Protein, Total 8.1 g/dL (6.4-8.2); Sodium Level 134 mmol/L (136-145)
[2019-08-05] MEDS: HYDROmorphone 0.5 MG/0.5 ML SYRINGE IV (02:08)
[2019-08-05] MEDS: 0.9% Normal Saline 1,000 ML 15 ML IV (02:09)
[2019-08-05] MEDS: Ondansetron 4 MG/2 ML Vial IV (02:09)
[2019-08-05] MEDS: Ceftriaxone 1 GM/50 ML BAG IV (02:10)
--- NOTE | 2019-08-05 02:21 | CT_ITS ---
STUDY: CT CHEST WITHOUT CONTRAST REASON FOR EXAM: Female, 64 years old. PT STATED FALL, BACK PAIN, SHORT OF BREATH RADIATION DOSAGE (If Supplied By Facility): CTDIvol = ( 17.26 ) mGy, DLP = ( 638.45 ) mGycm TECHNIQUE: Transaxial imaging was performed without the administration of intravenous contrast material. Multiplanar coronal and sagittal images were reformatted. Individualized dose optimization techniques were used for this CT. COMPARISON: None. FINDINGS: Mild to moderate right-sided pleural effusion. Mild right posterior dependent atelectasis. Mosaic pattern demonstrates suggestive of small airway disease. Thickening of interstitial septa at the lung apices indicate chronic interstitial changes versus vascular congestion. Normal cardiac size. Coronary artery calcifications noted. Lymph nodes within the mediastinum, largest in the right anterolateral aorta measuring 1.2 cm in maximum dimension. Unremarkable hilar regions. Normal unenhanced pulmonary arteries. There is atherosclerotic calcification of the aortic arch with tortuosity and elongation of the aortic arch and descending thoracic aorta. Multilevel degenerative disease of the spine with no acute fracture or subluxation. Visualized upper abdominal structures are unremarkable. CT/Chest without Contrast IMPRESSION: Mild right-sided pleural effusion with mild right lower lobe atelectasis. Diffuse small airway disease as described. No pneumothorax. Vascular congestion versus atypical interstitial lung disease. Degenerative disease of the spine with no acute fracture. Electronically Signed: Viri Yusuf MD at 3:00 EDT , Service support ,
[2019-08-05] MEDS: 0.9% Normal Saline 1,000 ML 999 ML IV (02:30)
[2019-08-05 02:58] LABS: BNP,B-Type NATRIURETIC PEPTIDE 554.2 pg/mL (0-100)
--- NOTE | 2019-08-05 03:37 | PCM.HP.STD ---
Problem List (1) Inflammatory bowel disease Status: Chronic (2) Chronic anemia Status: Chronic (3) Acute renal insufficiency Status: Acute (4) DVT of popliteal vein Status: Chronic Qualifiers: Chronicity: acute Laterality: left Qualified Code(s): I82.432 - Acute embolism and thrombosis of left popliteal vein (5) UTI (urinary tract infection) Status: Acute (6) Weakness Status: Acute (7) Fall Status: Acute (8) Renal insufficiency Status: Chronic (9) Anemia, chronic disease Status: Chronic (10) Failure to thrive in adult Status: Chronic (11) Essential hypertension Status: Chronic (12) Frequent falls Status: Chronic (13) Cardiomyopathy Status: Chronic Qualifiers: Cardiomyopathy type: dilated Qualified Code(s): I42.0 - Dilated cardiomyopathy (14) Unsteady gait Status: Chronic (15) Tobacco use disorder Status: Chronic (16) Esophageal reflux Status: Chronic (17) Depressive disorder Status: Chronic (18) Back ache Status: Chronic Qualifiers: Back pain location: back pain in unspecified location (19) Irritable bowel syndrome (IBS) Status: Chronic (20) Anxiety disorder Status: Chronic Qualifiers: Anxiety disorder type: generalized anxiety disorder Qualified Code(s): F41.1 - Generalized anxiety disorder History of Present Illness Date of Admission: 08/05/19 Chief Complaint: Fall The patient is a 64 year old F with a significant history of DVT post IVC filter; heart failure (echocardiogram on 07/28/2018 showed ejection fraction of 45%; and evidence of diastolic dysfunction); tobacco use disorder; anxiety/depression; CKD stage III who presents at the emergency department because of a fall. Patient lives at home. In the past she was at [facility]. She reports that she has unsteady gait and she uses wheelchair. While getting off from her bed onto her wheel chair to urinate she fell. She has a history of multiple falls. She reports dysuria and increased urinary frequency. She reported that her urine feels hot. Further patient reports bilateral leg swelling and pain. She reported typically only her left leg is swollen. However the swelling in her left leg has increased. Further she has swelling in the right leg. Also she has shortness of breath; orthopnea and PND. In the past 1 to 2 months she again about 10 pounds in weight. At the emergency department patient was found to have tachycardia. Her white count was elevated at 20.6. Further her creatinine was elevated above her baseline. Abdominal and pelvis CT showed nonspecific bilateral perinephric stranding; and finding suggestive of thrombosis/thrombophlebitis. Further abdomen pelvis CT showed diffuse edema/swelling involving the lateral upper thighs and buttocks region, left more than right. Urinalysis was abnormal. Patient complained of back pain at emergency department and was given Dilaudid. Past Medical History Past Medical History (Chronic Problems): Chronic Problems (Last Reviewed 08/05/19 @ 05:[address] Som Washington MD) Inflammatory bowel disease (Chronic) Chronic anemia (Chronic) DVT of popliteal vein (Chronic) Renal insufficiency (Chronic) Anemia, chronic disease (Chronic) Failure to thrive in adult (Chronic) Essential hypertension (Chronic) Frequent falls (Chronic) Cardiomyopathy (Chronic) Unsteady gait (Chronic) Tobacco use disorder (Chronic) Esophageal reflux (Chronic) Depressive disorder (Chronic) Back ache (Chronic) Irritable bowel syndrome (IBS) (Chronic) Anxiety disorder (Chronic) Medical History: Medical History (Last Reviewed 08/05/19 @ 05:[address] Som Washington MD) Frequent falls (Chronic) R29.6 Shock, unspecified (Inactive) R57.9 GI bleed (Inactive) K92.2 Acute liver failure (Resolved) K72.00 Coagulopathy (Resolved) D68.9 UTI (urinary tract infection) (Inactive) N39.0 Hepatic encephalopathy (Inactive) K72.90 Cardiomyopathy (Chronic) I42.9 Acute renal insufficiency (Inactive) N28.9 Acute renal failure (Inactive) N17.9 Lightheadedness (Inactive) R42 Unsteady gait (Chronic) R26.81 Headache (Inactive) R51 Chest pain (Inactive) R07.9 Tobacco use disorder (Chronic) F17.200 Esophageal reflux (Chronic) K21.9 Depressive disorder (Chronic) F32.9 Back ache (Chronic) M54.9 Weakness of both arms (Resolved) M62.81 Numbness and tingling of right face (Resolved) R20.0, R20.2 Difficulty speaking (Resolved) NSTEMI (non-ST elevated myocardial infarction) (Resolved) I21.4 Jaw pain (Resolved) R68.84 Irritable bowel syndrome (IBS) (Chronic) Anxiety disorder (Chronic) F41.9 Vascular dementia with behavior disturbance F01.51 Allergies duloxetine HCl [From Cymbalta] Adverse Reaction (Verified 08/05/19 01:02) Other pt doesn't remember morphine Adverse Reaction (Verified 08/05/19 01:02) Itching pramipexole di-HCl [From Mirapex] Adverse Reaction (Verified 08/05/19 01:02) Other pt doesn't remember Sulfa (Sulfonamide Antibiotics) Adverse Reaction (Verified 08/05/19 01:02) Unknown tramadol HCl [From Ultram] Adverse Reaction (Verified 08/05/19 01:02) Itching varenicline [From Chantix] Adverse Reaction (Verified 08/05/19 01:02) Unknown Home Medications: Ambulatory Orders Medication Instructions Recorded Nitroglycerin [Nitrostat] 0.4 mg SL PRN PRN 08/20/13 Clonazepam [Klonopin] 0.5 mg PO QHS 08/14/15 Metoprolol Tartrate [Lopressor 25 mg PO BID 08/14/15 (beta codie)] Dicyclomine HCl [Bentyl] 10 mg PO ACHS 09/08/17 Triamcinolone 0.025% Cream 1 applic TOPICAL BID PRN 09/08/17 [Kenalog] Nystatin Powder [Mycostatin Powder] 1 applic TOPICAL 4X/DAY PRN PRN 07/16/18 Albuterol Inhaler [Ventolin Hfa] 2 puff INHALATION Q4H PRN PRN 07/27/18 calcium carbonate 200 mg calcium 200 mg PO Q4H PRN tab 08/28/18 (500 mg) chewable tablet omeprazole 40 mg capsule,delayed 40 mg PO DAILY cap 08/28/18 release sertraline 50 mg tablet 150 mg PO DAILY tab 08/28/18 Ondansetron [Zofran Odt] 4 mg PO Q8H PRN PRN #10 tab 09/25/18 Amlodipine [Norvasc] 5 mg PO DAILY 10/16/18 Atorvastatin Calcium [Lipitor] 20 mg PO QHS 10/16/18 Budesonide [Budesonide EC] 9 mg PO DAILY 10/16/18 Sucralfate [Carafate] 1 gm PO 1HR_ACHS 10/16/18 Ferrous Sulfate 325 mg PO BIDCM 04/05/20 busPIRone [Buspar] 5 mg PO BID 08/05/19 Surgical History: Surgical History (Last Reviewed 08/05/19 @ 05:[address] Som Washington MD) History of colonoscopy Z98.890 X 2 Surgical History: - - All teeth pulled put. 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 Som Washington MD) Other Adopted History Items: - - Patient was adopted Paternal Family History: Family History (Last Reviewed 08/05/19 @ 05:[address] Som Washington MD) Other Adopted History Items: No pertinent history, - - Patient was adopted Review of Systems Constitutional: Reports: Anorexia, Weakness, Weight Change - Report 10 pounds weight gain in 1 to 2 months., Fatigue. Denies: Chills, Fever HEENT: Denies: Head Aches, Sinus Congestion, Sinus Drainage Cardiovascular: Reports: Edema, Orthopnea, Paroxysmal Noc. Dyspnea. Denies: Chest Pain, Palpitations Respiratory: Reports: Shortness of Breath. Denies: Cough, Shortness of breath at rest, Sputum production Gastrointestinal: Reports: Nausea. Denies: Abdominal Pain, Vomiting Genitourinary: Denies: Dysuria Musculoskeletal: Reports: Back Pain, Leg Pain. Denies: Joint Pain, Joint Tenderness Skin: Reports: Skin Changes - Erythema bilateral legs. Denies: Rash, Wounds Neurological: Denies: Numbness, Tingling, Focal weakness Psychiatric: Reports: Anxiety, Depression. Denies: Homicidal Ideations, Suicidal Ideations Hematologic/ Lymphatic: Denies: Easy Bruising, Easy Bleeding VTE Information - Inpt Only VTE Present on Admission: Yes - History of DVT with IVC filter. VTE Mechan Device Prophylaxis: None VTE Pharm Prophylaxis ordered?: No Reason prophylaxis not ordered:: Treatment Not Indicated - History of DVT with IVC filter. Patient Problems: Active and Suspected Problems (Last Reviewed 08/05/19 @ 05:[address] Som Washington MD) UTI (urinary tract infection) (Acute) Weakness (Acute) Fall (Acute) - Physical Exam Vitals/I&O's: Vital Signs Temp Pulse Resp BP Pulse Ox 98.4 F 110 H 24 H 123/66 H 88 08/05/19 00:58 08/05/19 02:31 08/05/19 02:31 08/05/19 02:31 08/05/19 02:31 Oxygen Delivery Method Room Air Weight: 97.1 kg Body Mass Index (BMI) 31.6 Finger Stick Blood Glucose 199 Intake and Output for Last 24 Hours 08/03/19 08/04/19 08/05/19 23:59 23:59 23:59 Intake Total 5.25 / 5.25 Balance 5.25 / 5.25 General: Alert, Oriented x3, Cooperative HEENT: Atraumatic, EOMI, Normocephalic Neck: Supple, Trachea Midline Lungs: Clear to auscultation, Normal air movement, Rales - Right lower base. Cardiovascular: Regular Rhythm, Normal S1, Normal S2, No murmurs, Tachycardic Abdomen: Bowel Sounds Present, Soft, Non Tender Extremities: Capillary Refill Less than 3 Seconds, Edema Skin: - - Severe erythema of bilateral legs. Musculoskeletal: No Muscle Wasting Neurological: Cranial nerves II-XII grossly intact Psych/Mental Status: Normal Affect, Appropriate Laboratory Results 08/05/19 01:06: WBC 20.6 H, RBC 5.15, Hgb 11.5 L, Hct 40.3, MCV 78.3 L, MCH 22.3 L, MCHC 28.5 L, RDW Std Deviation 54.4 H, RDW Coeff of Gabriel 20.0 H, Plt Count 336, MPV 9.8, Immature Gran % (Auto) 0.700, Neut % (Auto) 87.5 H, Lymph % (Auto) 5.2 L, Whitman % (Auto) 6.4, Eos % (Auto) 0.0, Baso % (Auto) 0.2, Absolute Neuts (auto) 18.0 H, Absolute Lymphs (auto) 1.06, Nucleated RBC % 0 08/05/19 01:06: PT 18.0 H, INR 1.5, APTT 28.6 08/05/19 01:06: Sodium 134 L, Potassium 4.5, Chloride 103, Carbon Dioxide 21.0, Anion Gap 10, BUN 22 H, Creatinine 1.63 H, Estim Creat Clear Calc 35.48, Est GFR (MDRD) Af Amer 41 L, Est GFR (MDRD) Non-Af 34 L, BUN/Creatinine Ratio 13.5, Glucose 205 H, Calcium 9.6, Total Bilirubin 1.00, Direct Bilirubin 0.34 H, AST 9 L, ALT 10 L, Alkaline Phosphatase 132 H, Total Protein 8.1, Albumin 3.7, Globulin 4.4 H 08/05/19 01:06: B-Natriuretic Peptide 554.2 H 08/05/19 01:10: Urine Color Yellow, Urine Clarity Clear, Urine pH 5.0, Ur Specific [place] 1.020, Urine Protein 30 H, Urine Glucose (UA) Normal, Urine Ketones Negative, Urine Occult Blood 10 H, Urine Nitrite Negative, Urine Bilirubin 1 H, Urine Urobilinogen 1 H, Ur Leukocyte Esterase 500 H, Urine RBC 10-25 SEEN, Urine WBC 25-50 SEEN, Ur Squamous Epith Cells 5-10 SEEN, Urine Bacteria RARE, Urine Mucus 0 SEEN, Urine Yeast RARE Current Medications Sodium Chloride () 1,000 mls @ 15 mls/hr IV .Q48H [facility] Last Infusion: 08/05/19 02:30 Dose: 0 mls/hr Documented by: Sodium Chloride () 1,000 mls @ 150 mls/hr IV .Q6H40M [facility] Assessment/Plan All Active Problems (Last Reviewed 08/05/19 @ 05:[address] Som Washington MD) Acute renal insufficiency (Acute) UTI (urinary tract infection) (Acute) Weakness (Acute) Fall (Acute) Acute liver failure (Resolved) Coagulopathy (Resolved) Weakness of both arms (Resolved) Numbness and tingling of right face (Resolved) Difficulty speaking (Resolved) NSTEMI (non-ST elevated myocardial infarction) (Resolved) Jaw pain (Resolved) The patient is a 64 year old F with a significant history of DVT post IVC filter; heart failure (echocardiogram on 07/28/2018 showed ejection fraction of 45%; and evidence of diastolic dysfunction); tobacco use disorder; anxiety/depression; CKD stage III who presents to the emergency department because of a fall in the setting of unsteady gait and frequent falls; increased urinary frequency with dysuria and was found to have abnormal urinalysis; tachycardia; neutrophilic leukocytosis; abnormal urinalysis and elevated BNP as well as chest CT finding of mild right pleural effusion and vascular congestion versus atypical interstitial lung disease concerning for sepsis secondary UTI; and acute on chronic heart failure with reduced ejection fraction. Severe sepsis secondary UTI With bilateral perinephric stranding on CT, rule out pyonephritis Heart rate of more than 90; white count of more than 12,000. Abnormal urinalysis. Received ceftriaxone emergency department. We will continue patient on ceftriaxone. Urine culture and blood cultures are pending. Discussed emergent department doctor get lactic acid. If lactic acid is less than or equal to 4 we will send patient today PCU. If lactic is more than 4 send patient to ICU. Probable Acute on chronic heart failure with reduced ejection fraction Echocardiogram on 07/28/2018 showed ejection fraction of 45%; and evidence of diastolic dysfunction. Right ventricular systolic pressure was 71 Place on monitored bed on PCU Weight on admission to the floor; and then daily Strict I&O's Impression of chest CT by radiologist: Mild right pleural effusion with mild right lower lobe atelectasis. Diffuse small airway disease. Vascular congestion versus atypical interstitial lung disease. Degenerative disease of the spine with no acute fracture.Independent review of chest CT was consistent with moderate right pleural effusion with mild right lower lobe atelectasis. Vascular congestion was no florid. Degenerative disease of the spine with no acute fracture. BNP at emergency department was 554.2 Old records reviewed: No previous BNP to compare with. Patient was given some IV fluids at the emergency department. Will start IV fluids for now. Will give a trial of Lasix. Consider further diuretics as necessary. Monitor electrolytes and renal function Trend blood pressure Fluid restriction of 1500 mls daily 2 g cardiac diet GEORGE on CKD stage 3 Creatinine presentation was 1.63. Her creatinine on 10/16/2018 was 1.01. and 1.21. Patent 10/12/2018 was 0.84. Creatinine on 10/11/2018 was 0.97. BUN is 22. BUN over creatinine is 13.5. Cannot rule out vascular congestion from heart failure. Other etiologies include sepsis. Received IV fluids in the emergency department. Will give Lasix 40 mg IV push x1. Trend BMP. Reportedly patient had dialysis about a year ago. Hyperglycemia Blood glucose on BMP was 205. Patient is on home budesonide that may be contributing. Check A1c. Accu-Chek QA CHS with correction scale insulin ordered. Tobacco abuse Counseled. Nicotine patch ordered. Debility with fall PT and OT to work with patient. Anxiety/depression Clonazepam; buspirone and sertraline continued Thrombosis/thrombophlebitis Per abdominal and pelvis CT. Patient with bilateral leg erythema swelling and pain. IVC filter in place. Started on ceftriaxone for UTI which should also cover for thrombophlebitis Chronic back pain Chest CT showed degenerative disease of the spine with no acute fracture. Complains of lower and upper back pain. She reports that her pain has been going on for about 3 months. She is allergic to morphine and tramadol. Received Dilaudid at the emergency department. Will put patient on PRN K pad and PRN Flexeril. DVT prophylaxis Reportedly patient had GI bleed with anticoagulation. IVC filter in place. Inpatient E&M: [id number] Init Hosp L3
[2019-08-05 05:03] LABS: Lactic Acid 1.7 mmol/L (0.4-1.9)
[2019-08-05] MEDS: 0.9% Normal Saline 1,000 ML 150 ML IV (05:19)
[2019-08-05 06:31] LABS: Bedside Glucose 180 mg/dL (70-110)
[2019-08-05] MEDS: Dicyclomine 10 MG Capsule PO ×2 (06:58→10:55)
[2019-08-05] MEDS: Furosemide 40 MG/4 ML Vial IV (06:58)
[2019-08-05 07:49] LABS: Hemoglobin A1c 7.7 % (4.2-6.3)
[2019-08-05] MEDS: Glucerna Shake 120 ML LIQUID PO (08:26)
--- NOTE | 2019-08-05 08:33 | CT_ITS ---
STUDY: CT ABDOMEN AND PELVIS WITH CONTRAST REASON FOR EXAM: Female, 64 years old. POSSIBLE IVC CLOT, IVC FILTER IN PLACE, ABD PAIN RADIATION DOSAGE (If Supplied By Facility): CTDIvol = ( 11.31 ) mGy, DLP = ( 2554.46 ) mGycm TECHNIQUE: Transaxial images were obtained from the dome of the diaphragm to the symphysis pubis without oral contrast. IV 100mL Isovue-[id number] was administered. Sagittal and coronal images were reconstructed. Individualized dose optimization techniques were used for this CT. COMPARISON: CT same day. FINDINGS: There are mild worsening groundglass pulmonary opacities right middle lobe, lingula and lower lobes. There is a stable small right pleural effusion. There is stable cardiomegaly. There is a stent within the LAD not included on the [id number] on the prior exam. Normal liver. Normal gallbladder and extrahepatic biliary system. Normal spleen. Normal pancreas. Normal bilateral adrenal glands. Normal right kidney. There is a subcentimeter left renal hypodensity no hydronephrosis. The right kidney is normal. Normal visualized stomach. Normal small intestine. Normal colon. The appendix is visualized and appears normal. Normal abdominal aorta. There is an IVC filter. Distal to the filter there is hypodensity within the IVC. Superior to the filter no hypodensity is visualized. The hypodensity extends into the common iliac veins. There is stranding in the retroperitoneum surrounding the IVC and abdominal aorta unchanged. There is enlargement of the IVC and the common iliac veins. The hypodensity likely extends into the external and internal iliac veins as well. Evaluation is limited due to poor contrast opacification. Evaluation of the common femoral and femoral veins is limited due to poor contrast opacification. However the vessels are enlarged. Stable mild presacral edema. There is stranding diffuse edema within the subcutaneous soft tissues and bilateral thighs. The edema also extends along the course of the femoral veins also unchanged Normal urinary bladder. Normal abdominal wall. There is sclerosis of both femoral heads. Stable significant degenerative changes lower lumbar spine with disc space narrowing and disc osteophyte complexes central canal and bilateral foraminal stenosis. CT/Abdomen/Pelvis WITH Contrast IMPRESSION: IVC filter with diffuse thrombus within the more distal IVC, distal to the filter. The thrombus extends into the common iliac and also likely external and internal iliac veins. The common femoral veins are also enlarged as well as femoral veins with surrounding edema. Evaluation for thrombosis of these veins is limited due to lack of contrast opacification. Venous Doppler ultrasound of the lower extremities would be recommended to evaluate for bilateral leg thrombosis. Edema and inflammatory changes within the retroperitoneum likely due to IVC thrombosis Stable small right pleural effusion Stable mild cardiomegaly, coronary artery stent within the LAD Mild worsening groundglass pulmonary opacities likely pulmonary venous congestion cannot exclude pneumonia, including atypical viral pneumonia Sclerosis, degenerative changes of both hips, findings suspicious for bilateral hip AVN, this can be further evaluated with MRI of the hips Multilevel spondylosis lumbar spine Subcentimeter left renal cyst Electronically Signed: Brian Luna, at 10:10 EDT Tel , Service support ,
--- NOTE | 2019-08-05 08:33 | CT_ITS ---
STUDY: CTA OF THE ABDOMINAL AORTA AND BILATERAL LOWER EXTREMITIES REASON FOR EXAM: Female, 64 years old. BILATERAL LEG SWELLING, COLD EXTREMITIES, SKIN COLOR CHANGES, IVC FILTER RADIATION DOSAGE (If Supplied By Facility): CTDIvol = ( 11.31 ) mGy, DLP = ( 2554.46 ) mGycm TECHNIQUE: Axial CT angiography multi-detector data acquisition was obtained from the to the following intravenous administration of OPTIRAY 350 100ML. Axial images and MIP images were reconstructed from the axial data set. Post-processing of the angiographic images was performed, with multiplanar reformation and 3D reconstruction. Individualized dose optimization techniques were used for this CT. TECHNICAL QUALITY: Good COMPARISON: None. Descriptors of Narrowing: None (0%) Mild (< 50%) Moderate (50-70%) Severe (70-90%) Subtotal/Total Occlusion (90-100%) Non-Evaluable (technically non-diagnostic FINDINGS: Descending thoracic aorta: There is mild atherosclerotic plaque without significant narrowing. Abdominal aorta: There is mild atherosclerotic plaque without significant narrowing.. There is mild ectasia of the infrarenal abdominal aorta maximum AP diameter 2.2 cm. Celiac and superior mesenteric arteries: No demonstrated narrowing. Inferior mesenteric artery: No demonstrated narrowing. Right renal artery(arteries): No demonstrated narrowing. Left renal artery(arteries): No demonstrated narrowing. Right common iliac artery: No demonstrated narrowing. Mild atherosclerotic plaque Right external iliac artery: No demonstrated narrowing. Mild atherosclerotic plaque Right internal iliac artery: No demonstrated narrowing. Left common iliac artery: No demonstrated narrowing. Left external iliac artery: No demonstrated narrowing. Left internal iliac artery: No demonstrated narrowing. RIGHT LOWER EXTREMITY Right common femoral artery: No demonstrated narrowing. Right profundus femoris: No demonstrated narrowing. Right superficial femoral: The vessel is small in size. There is mild to moderate atheromatous narrowing. Right popliteal artery: No flow. Right tibioperoneal trunk: No flow. Right anterior tibial artery: No flow. Right posterior tibial artery: No flow. Right peroneal artery: No flow. LEFT LOWER EXTREMITY Left common femoral artery: No demonstrated narrowing. Left profundus femoris: No demonstrated narrowing. Left superficial femoral: The vessel is small in size. There is mild to moderate atheromatous narrowing. Left popliteal artery: No demonstrated narrowing. There is mild atheromatous narrowing. The vessels are small in size. Left tibioperoneal trunk: No demonstrated narrowing. Left anterior tibial artery: There is flow to the mid to lower calf. Distally there is no flow. Left posterior tibial artery: There is flow to the mid to lower calf. Distally there is no flow. Left peroneal artery: There is flow to the mid to lower calf. Distally there is no flow. There is diffuse edema within the subcutaneous soft tissues of the lower extremities. There are mild worsening groundglass pulmonary opacities right middle lobe, lingula and lower lobes. There is a stable small right pleural effusion. There is stable cardiomegaly. There is a stent within the LAD not included on the [id number] on the prior exam. Normal liver. Normal gallbladder and extrahepatic biliary system. Normal spleen. Normal pancreas. Normal bilateral adrenal glands. Normal right kidney. There is a subcentimeter left renal hypodensity no hydronephrosis. The right kidney is normal. Normal visualized stomach. Normal small intestine. Normal colon. The appendix is visualized and appears normal. Normal abdominal aorta. There is an IVC filter. Distal to the filter there is hypodensity within the IVC. Superior to the filter no hypodensity is visualized. The hypodensity extends into the common iliac veins. There is stranding in the retroperitoneum surrounding the IVC and abdominal aorta unchanged. There is enlargement of the IVC and the common iliac veins. The hypodensity likely extends into the external and internal iliac veins as well. Evaluation is limited due to poor contrast opacification. Evaluation of the common femoral and femoral veins is limited due to poor contrast opacification. However the vessels are enlarged. Stable mild presacral edema. There is stranding diffuse edema within the subcutaneous soft tissues and bilateral thighs. The edema also extends along the course of the femoral veins also unchanged with edema along the course of the fascia of the common femoral superficial femoral arteries Normal urinary bladder. Normal abdominal wall. There is sclerosis of both femoral heads. Stable significant degenerative changes lower lumbar spine with disc space narrowing and disc osteophyte complexes central canal and bilateral foraminal stenosis. CT/CTA Abd w/Runoff W/WO Contrast IMPRESSION: Occlusion of the right popliteal artery with no flow distally Occlusion of the left trifurcation arteries within the mid lower calf region with no flow distally Small bilateral superficial femoral arteries with mild to moderate stenoses of the small caliber of the vessel may be due congenital or due to compartment syndrome due to the diffuse edema which extends into the thigh along the course of these common femoral and superficial femoral vessels with involvement of the subcutaneous soft tissues and fascia IVC filter with diffuse thrombus within the more distal IVC, distal to the filter. The thrombus extends into the common iliac and also likely external and internal iliac veins. The common femoral veins are also enlarged as well as femoral veins with surrounding edema. Evaluation for thrombosis of these veins is limited due to lack of contrast opacification. Venous Doppler ultrasound of the lower extremities would be recommended to evaluate for bilateral leg thrombosis. 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 A telephone report was called immediately following my review to KIARRA Bentley 10:19 AM 08/05/2019. N.B. : The above information has been verbally conveyed by Brian Luna to Salvador [id number], on 08/05/2019 10:25:25 (ET). Electronically Signed: Brian uLna, at 10:28 EDT Tel , Service support ,
[2019-08-05] MEDS: Sucralfate 1 GM Tablet PO (10:52)
[2019-08-05] MEDS: Metoprolol Tartrate 25 MG Tablet PO (10:53)
[2019-08-05] MEDS: Budesonide 3 MG CAPSULE.EC 9 MG PO (10:53)
[2019-08-05] MEDS: busPIRone 5 MG Tablet PO (10:53)
[2019-08-05] MEDS: Pantoprazole Sodium 40 MG Tablet PO (10:54)
[2019-08-05] MEDS: amLODIPine 5 MG Tablet PO (10:55)
[2019-08-05] MEDS: Sertraline 50 MG Tablet 150 MG PO (10:55)
[2019-08-05] MEDS: Ferrous Sulfate 325 MG Tablet PO (10:56)
[2019-08-05] MEDS: Acetaminophen 325 MG Tablet 650 MG PO (11:05)
[2019-08-05] MEDS: Insulin Lispro 100 UNIT/ML INSULN.PEN SC (11:20)
[2019-08-05 11:55] LABS: Bedside Glucose 162 mg/dL (70-110)
[2019-08-05] MEDS: HEPARIN/D5w 25,000 UNITS 25,000 UNITS/250 ML IV.SOLN. 10 UNITS IV (11:55)
[2019-08-05] MEDS: Heparin Injection (Vial) 5,000 UNIT/ML VIAL 4000 UNIT IV (11:57)
--- NOTE | 2019-08-05 12:09 | DCINST_ITS ---
- Discharge Diagnoses Current Active Problems: Current Active and Chronic Problems (Last Reviewed 08/05/19 @ 05:[address] Som Washington MD) UTI (urinary tract infection) (Acute) Weakness (Acute) Fall (Acute) Allergies/Adverse Reactions: Allergies duloxetine HCl [From Cymbalta] Adverse Reaction (Verified 08/05/19 01:02) Other pt doesn't remember morphine Adverse Reaction (Verified 08/05/19 01:02) Itching pramipexole di-HCl [From Mirapex] Adverse Reaction (Verified 08/05/19 01:02) Other pt doesn't remember Sulfa (Sulfonamide Antibiotics) Adverse Reaction (Verified 08/05/19 01:02) Unknown tramadol HCl [From Ultram] Adverse Reaction (Verified 08/05/19 01:02) Itching varenicline [From Chantix] Adverse Reaction (Verified 08/05/19 01:02) Unknown Medications to take at Discharge Nitroglycerin [Nitrostat] 0.4 mg SL PRN PRN 08/20/13 Clonazepam [Klonopin] 0.5 mg PO QHS 08/14/15 Metoprolol Tartrate [Lopressor (beta codie)] 25 mg PO BID 08/14/15 Dicyclomine HCl [Bentyl] 10 mg PO ACHS 09/08/17 Triamcinolone 0.025% Cream [Kenalog] 1 applic TOPICAL BID PRN 09/08/17 Nystatin Powder [Mycostatin Powder] 1 applic TOPICAL 4X/DAY PRN PRN 07/16/18 Albuterol Inhaler [Ventolin Hfa] 2 puff INHALATION Q4H PRN PRN 07/27/18 calcium carbonate 200 mg calcium (500 mg) chewable tablet 200 mg PO Q4H PRN tab 08/28/18 omeprazole 40 mg capsule,delayed release 40 mg PO DAILY cap 08/28/18 sertraline 50 mg tablet 150 mg PO DAILY tab 08/28/18 Ondansetron [Zofran Odt] 4 mg PO Q8H PRN PRN #10 tab 09/25/18 Amlodipine [Norvasc] 5 mg PO DAILY 10/16/18 Atorvastatin Calcium [Lipitor] 20 mg PO QHS 10/16/18 Budesonide [Budesonide EC] 9 mg PO DAILY 10/16/18 Sucralfate [Carafate] 1 gm PO 1HR_ACHS 10/16/18 Ferrous Sulfate 325 mg PO BIDCM 08/05/19 busPIRone [Buspar] 5 mg PO BID 08/05/19 Primary Care Physician: Crystal Earl MD [Primary Care Provider] - Please follow up with your Primary Care Physician in: Tele-visit Test Results: Test results from this visit will be discussed in further detail at your follow- up appointment, if applicable.
--- NOTE | 2019-08-05 12:36 | DS.PCM_ITS ---
Discharge Date and Diagnosis - Problem List Patient Problems: Active and Suspected Problems (Last Reviewed 08/05/19 @ 05:[address] Smo Washington MD) UTI (urinary tract infection) (Acute) Weakness (Acute) Fall (Acute) Date of Admission: 08/05/19 Date of Discharge: 08/05/19 - Primary Discharge Diagnosis Active and Suspected Problems (Last Reviewed 08/05/19 @ 05:[address] Som Washington MD) UTI (urinary tract infection) (Acute) Weakness (Acute) Fall (Acute) - Secondary Discharge Diagnosis Chronic Problems (Last Reviewed 08/05/19 @ 05:[address] Som Washington MD) Inflammatory bowel disease (Chronic) Chronic anemia (Chronic) DVT of popliteal vein (Chronic) Renal insufficiency (Chronic) Anemia, chronic disease (Chronic) Failure to thrive in adult (Chronic) Essential hypertension (Chronic) Frequent falls (Chronic) Cardiomyopathy (Chronic) Unsteady gait (Chronic) Tobacco use disorder (Chronic) Esophageal reflux (Chronic) Depressive disorder (Chronic) Back ache (Chronic) Irritable bowel syndrome (IBS) (Chronic) Anxiety disorder (Chronic) Hospital Course and Treatment Imaging Results: CT Abd/Pelvis: IMPRESSION: Nonspecific bilateral perinephric stranding, otherwise unremarkable abdominal viscera. IVC filter in place with heterogeneity of the inferior vena cava below this level and iliac veins, left more than right. These findings are suggestive of thrombosis/thrombophlebitis. Stranding/inflammation in the retroperitoneal region surrounding the aorta and inferior vena cava which may be related to underlying thrombosis/thrombophlebitis. Diffuse edema/swelling involving the lateral upper thigh and buttock region, left more than right. CT Chest: IMPRESSION: Mild right-sided pleural effusion with mild right lower lobe atelectasis. Diffuse small airway disease as described. No pneumothorax. Vascular congestion versus atypical interstitial lung disease. Degenerative disease of the spine with no acute fracture. CTA Abd/Pelvis: IMPRESSION: Occlusion of the right popliteal artery with no flow distally Occlusion of the left trifurcation arteries within the mid lower calf region with no flow distally Small bilateral superficial femoral arteries with mild to moderate stenoses of the small caliber of the vessel may be due congenital or due to compartment syndrome due to the diffuse edema which extends into the thigh along the course of these common femoral and superficial femoral vessels with involvement of the subcutaneous soft tissues and fascia IVC filter with diffuse thrombus within the more distal IVC, distal to the filter. The thrombus extends into the common iliac and also likely external and internal iliac veins. The common femoral veins are also enlarged as well as femoral veins with surrounding edema. Evaluation for thrombosis of these veins is limited due to lack of contrast opacification. Venous Doppler ultrasound of the lower extremities would be recommended to evaluate for bilateral leg thrombosis. Edema and inflammatory changes within the retroperitoneum likely due to IVC thrombosis Stable small right pleural effusion Stable mild cardiomegaly, coronary artery stent within the LAD Mild worsening groundglass pulmonary opacities likely pulmonary venous congestion cannot exclude pneumonia, including atypical viral pneumonia Sclerosis, degenerative changes of both hips, findings suspicious for bilateral hip AVN, this can be further evaluated with MRI of the hips Multilevel spondylosis lumbar spine Subcentimeter left renal cyst Consults: None Operations: None Procedures: None Summary of Care Provided: Per HPI: The patient is a 64 year old F with a significant history of DVT post IVC filter; heart failure (echocardiogram on 07/28/2018 showed ejection fraction of 45%; and evidence of diastolic dysfunction); tobacco use disorder; anxiety/depression; CKD stage III who presents at the emergency department because of a fall. Patient lives at home. In the past she was at [facility]. She reports that she has unsteady gait and she uses wheelchair. While getting off from her bed onto her wheel chair to urinate she fell. She has a history of multiple falls. She reports dysuria and increased urinary frequency. She reported that her urine feels hot. Further patient reports bilateral leg swelling and pain. She reported typically only her left leg is swollen. However the swelling in her left leg has increased. Further she has swelling in the right leg. Also she has shortness of breath; orthopnea and PND. In the past 1 to 2 months she again about 10 pounds in weight. At the emergency department patient was found to have tachycardia. Her white count was elevated at 20.6. Further her creatinine was elevated above her baseline. Abdominal and pelvis CT showed nonspecific bilateral perinephric stranding; and finding suggestive of thrombosis/thrombophlebitis. Further abdomen pelvis CT showed diffuse edema/swelling involving the lateral upper thighs and buttocks region, left more than right. Urinalysis was abnormal. Patient complained of back pain at emergency department and was given Dilaudid. Hospital Course: 1. 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 She is transferring herself from her bed to her wheelchair to go urinate and then she fell. She has had multiple falls in the past and she had been reporting some increased dysuria and frequency. Started on Rocephin and had a CT scan of her abdomen which in the ER demonstrated a possible thrombosis of the IVC filter. She states that she has had increased swelling on the right side which is abnormal as well as some pain later this morning from the swelling. Repeat CT scan of her abdomen pelvis with runoff demonstrated no arterial flow below the popliteal artery on the right and down the mid calf on the left, and confirmed a finding of IVC thrombosis. She was started on a heparin drip after a bolus and the case was discussed with vascular surgery at [facility] who accepted the patient to the medical ICU. I did discuss with her why she had an IVC filter placed, and she is that is because she had an episode of a DVT on her left lower extremity. She is not aware of any reason why she would have a contraindication to anticoagulation. She does have a history of a GI bleed but that was over a year ago. We will transfer patient to [facility], she expressed understanding as to why she needs to be transferred. Patient Problems: Active and Suspected Problems (Last Reviewed 08/05/19 @ 05:[address] Som Washington MD) UTI (urinary tract infection) (Acute) Weakness (Acute) Fall (Acute) - Physical Exam Vitals/I&O's: Vital Signs Temp Pulse Resp BP Pulse Ox 98.6 F 92 16 90/58 L 100 08/05/19 12:26 08/05/19 12:26 08/05/19 12:26 08/05/19 12:26 08/05/19 12:26 Oxygen Delivery Method Room Air Weight: 204 lb 2.369 oz Body Mass Index (BMI) 30.1 Finger Stick Blood Glucose 199 Intake and Output for Last 24 Hours 08/03/19 08/04/19 08/05/19 23:59 23:59 23:59 Intake Total 1055.25 / 1055.25 Balance 1055.25 / 1055.25 General: Alert, Oriented x3, Cooperative, No apparent distress HEENT: Atraumatic, PERRLA, EOMI, Normocephalic Oral: Moist Mucosa Neck: Supple, No JVD Lungs: Clear to auscultation, Normal air movement, No rhonchi, No wheeze, No rales, Diminished Cardiovascular: Regular rate, Regular Rhythm, Normal S1, Normal S2, No murmurs Abdomen: Soft, Non Tender, Non-Distended, No Hepato-splenomegaly Extremities: Cool - Bilateral lower extremities, Edema, Tenderness - Worsening, - - Absent pedal pulses bilaterally and on Doppler Skin: No rashes, No breakdown, - - Bilateral lower extremity venous congestion Neurological: Motor Exam 5/5 strength throughout, Sensory exam intact to light touch and pain Psych/Mental Status: Appropriate, Anxious Laboratory Results 08/05/19 01:06: WBC 20.6 H, RBC 5.15, Hgb 11.5 L, Hct 40.3, MCV 78.3 L, MCH 22.3 L, MCHC 28.5 L, RDW Std Deviation 54.4 H, RDW Coeff of Gabriel 20.0 H, Plt Count 336, MPV 9.8, Immature Gran % (Auto) 0.700, Neut % (Auto) 87.5 H, Lymph % (Auto) 5.2 L, Monona % (Auto) 6.4, Eos % (Auto) 0.0, Baso % (Auto) 0.2, Absolute Neuts (auto) 18.0 H, Absolute Lymphs (auto) 1.06, Nucleated RBC % 0 08/05/19 01:06: PT 18.0 H, INR 1.5, APTT 28.6 08/05/19 01:06: Sodium 134 L, Potassium 4.5, Chloride 103, Carbon Dioxide 21.0, Anion Gap 10, BUN 22 H, Creatinine 1.63 H, Estim Creat Clear Calc 35.48, Est GFR (MDRD) Af Amer 41 L, Est GFR (MDRD) Non-Af 34 L, BUN/Creatinine Ratio 13.5, Glucose 205 H, Calcium 9.6, Total Bilirubin 1.00, Direct Bilirubin 0.34 H, AST 9 L, ALT 10 L, Alkaline Phosphatase 132 H, Total Protein 8.1, Albumin 3.7, Globulin 4.4 H 08/05/19 01:06: B-Natriuretic Peptide 554.2 H 08/05/19 01:06: Hemoglobin A1c 7.7 H 08/05/19 01:10: Urine Color Yellow, Urine Clarity Clear, Urine pH 5.0, Ur Specific Stan[place] 1.020, Urine Protein 30 H, Urine Glucose (UA) Normal, Urine Ketones Negative, Urine Occult Blood 10 H, Urine Nitrite Negative, Urine Bilirubin 1 H, Urine Urobilinogen 1 H, Ur Leukocyte Esterase 500 H, Urine RBC 10-25 SEEN, Urine WBC 25-50 SEEN, Ur Squamous Epith Cells 5-10 SEEN, Urine Bacteria RARE, Urine Mucus 0 SEEN, Urine Yeast RARE 08/05/19 04:00: Lactic Acid 1.7 08/05/19 06:05: POC Glucose 180 H 08/05/19 11:15: POC Glucose 162 H Current Medications Acetaminophen (Tylenol) 650 mg PO Q6H PRN PRN PRN Reason: Pain Score 1-10/Temp > 100.7 F Last Admin: 08/05/19 11:05 Dose: 650 mg Documented by: Albuterol Sulfate (Ventolin Aerosols) 2.5 mg INHALATION Q2H PRN PRN PRN Reason: SOB/wheezing Amlodipine Besylate (Norvasc) 5 mg PO DAILY [facility] Last Admin: 08/05/19 10:55 Dose: 5 mg Documented by: Atorvastatin Calcium (Lipitor) 20 mg PO QHS [facility] Budesonide (Budesonide Ec) 9 mg PO DAILY [facility] Last Admin: 08/05/19 10:53 Dose: 9 mg Documented by: Buspirone HCl (Buspar) 5 mg PO BID [facility] Last Admin: 08/05/19 10:53 Dose: 5 mg Documented by: Clonazepam (Klonopin) 0.5 mg PO QHS [facility] Cyclobenzaprine HCl (Flexeril) 10 mg PO Q8H PRN PRN PRN Reason: Back pain 4-10/10 Dextrose (D50w Syringe) 0 gm IV X1 PRN; Protocol PRN Reason: Hypoglycemia Dicyclomine HCl (Bentyl) 10 mg PO ACHS [facility] Last Admin: 08/05/19 10:55 Dose: 10 mg Documented by: Ferrous Sulfate (Ferrous Sulfate) 325 mg PO BID@1200,1700 [facility] Last Admin: 08/05/19 10:56 Dose: 325 mg Documented by: Glucagon () 1 mg IM .X1 PRN PRN Reason: Hypoglycemia Heparin Sodium (Porcine) (Heparin Na) 0 unit IV UD PRN; Protocol Hydrocortisone (Hytone) 1 applic TOPICAL BID PRN PRN PRN Reason: RASH/TOPICAL IRRITATION Ceftriaxone Sodium (Rocephin) 1 gm in 50 mls @ 100 mls/hr IV Q24@2200 [facility] Heparin Sodium/Dextrose () 25,000 units in 250 mls @ 10 mls/hr IV .Q25H [facility]; Protocol Last Admin: 08/05/19 11:55 Dose: 1,000 units/hr, 10 mls/hr Documented by: Insulin Human Lispro (Humalog Kwikpen (Bkc)) 0 unit SC ACHS [facility]; Protocol Last Admin: 08/05/19 11:20 Dose: 1 u Documented by: Metoprolol Tartrate (Lopressor (Beta Denis)) 25 mg PO BID [facility] Last Admin: 08/05/19 10:53 Dose: 25 mg Documented by: Nicotine (Nicoderm Cq (Pbkc)) 21 mg TRANSDERM. DAILY [facility] Last Admin: 08/05/19 10:54 Dose: Not Given Documented by: Nutritional Formula (Lactose Free) (Glucerna Shake) 120 ml PO TIDCM [facility] Last Admin: 08/05/19 08:26 Dose: 120 ml Documented by: Nystatin (Mycostatin Powder) 1 applic TOPICAL 4X/DAY PRN PRN; Protocol PRN Reason: RASH/TOPICAL IRRITATION Ondansetron HCl (Zofran) 4 mg IV Q8H PRN PRN PRN Reason: NAUSEA/VOMITING Pantoprazole Sodium (Protonix) 40 mg PO DAILY [facility] Last Admin: 08/05/19 10:54 Dose: 40 mg Documented by: Sertraline HCl (Zoloft) 150 mg PO DAILY [facility] Last Admin: 08/05/19 10:55 Dose: 150 mg Documented by: Sucralfate (Carafate) 1 gm PO 1HR_ACHS [facility] Last Admin: 08/05/19 10:52 Dose: 1 gm Documented by: Home Medications: Medications to take at Discharge Nitroglycerin [Nitrostat] 0.4 mg SL PRN PRN 08/20/13 Clonazepam [Klonopin] 0.5 mg PO QHS 08/14/15 Metoprolol Tartrate [Lopressor (beta denis)] 25 mg PO BID 08/14/15 Dicyclomine HCl [Bentyl] 10 mg PO ACHS 09/08/17 Triamcinolone 0.025% Cream [Kenalog] 1 applic TOPICAL BID PRN 09/08/17 Nystatin Powder [Mycostatin Powder] 1 applic TOPICAL 4X/DAY PRN PRN 07/16/18 Albuterol Inhaler [Ventolin Hfa] 2 puff INHALATION Q4H PRN PRN 07/27/18 calcium carbonate 200 mg calcium (500 mg) chewable tablet 200 mg PO Q4H PRN tab 08/28/18 omeprazole 40 mg capsule,delayed release 40 mg PO DAILY cap 08/28/18 sertraline 50 mg tablet 150 mg PO DAILY tab 08/28/18 Ondansetron [Zofran Odt] 4 mg PO Q8H PRN PRN #10 tab 09/25/18 Amlodipine [Norvasc] 5 mg PO DAILY 10/16/18 Atorvastatin Calcium [Lipitor] 20 mg PO QHS 10/16/18 Budesonide [Budesonide EC] 9 mg PO DAILY 10/16/18 Sucralfate [Carafate] 1 gm PO 1HR_ACHS 10/16/18 Ferrous Sulfate 325 mg PO BIDCM 08/05/19 busPIRone [Buspar] 5 mg PO BID 08/05/19 Primary Care Physician: Crystal Earl MD [Primary Care Provider] - Please follow up with your Primary Care Physician in: Tele-visit Disposition: Acute care Hospital Minutes spent on discharge:: 35 Patient Condition:: Stable Medical Necessity - Tobacco Use Smoking Status: Current every day smoker Meaningful Use Info Meaningful Use Diagnoses (Choose all that apply): None applicable Inpatient E&M: [id number] [facility] Hosp
== END 2019-08-05 14:08 | disposition short-term general hospital (02) | DRG 206 ==
LOC: ED 03:31 → PCU 04:29
PROVIDERS: Admitting Provider Hospitalist; Emergency Provider Emergency Medicine; PCP Internal Medicine; Visit Provider Family Medicine
DX: T82.868A Thrombosis due to vascular prosthetic devices, implants and grafts, initial encounter (principal); I82.220 Acute embolism and thrombosis of inferior vena cava; N39.0 Urinary tract infection, site not specified; G89.29 Other chronic pain; K58.9 Irritable bowel syndrome, unspecified; W06.XXXA Fall from bed, initial encounter; Y92.003 Bedroom of unspecified non-institutional (private) residence as the place of occurrence of the external cause; F17.200 Nicotine dependence, unspecified, uncomplicated; M54.9 Dorsalgia, unspecified; R53.1 Weakness; N17.9 Acute kidney failure, unspecified; K21.9 Gastro-esophageal reflux disease without esophagitis; F32.9 Major depressive disorder, single episode, unspecified; R29.6 Repeated falls; Y71.8 Miscellaneous cardiovascular devices associated with adverse incidents, not elsewhere classified; Z95.828 Presence of other vascular implants and grafts; Z86.718 Personal history of other venous thrombosis and embolism; Z88.5 Allergy status to narcotic agent; I50.22 Chronic systolic (congestive) heart failure; N18.3 Chronic kidney disease, stage 3 (moderate); I13.0 Hypertensive heart and chronic kidney disease with heart failure and stage 1 through stage 4 chronic kidney disease, or unspecified chronic kidney disease
CPT/HCPCS: 36415; 71250; 74176; 74177; 75635; 80048; 80076; 81001; 82962; 83036; 83605; 83880; 85025; 85610; 85730; 87040; 87077; 87086; 87088; 93005; 97802; 99285; J7030; Q9967; A4216; J1940; J2405

== ENCOUNTER 2019-09-03 10:47 | Emergency (ER) | payer MEDICAID, SELFPAY ==
[2019-08-05 05:37] VITALS: BMI 30.1
[2019-09-03] VITALS (8 sets, daily range): BP systolic 86–149; BP diastolic 69–86; PULSE 66–110; RESP 12–23; TEMP 35.8–36.8; O2SAT 96–100; BMI 39.9
--- NOTE | 2019-09-03 10:55 | EKG12_ITS ---
Test Reason : Blood Pressure : / mmHG Vent. Rate : 109 BPM Atrial Rate : 109 BPM P-R Int : 170 ms QRS Dur : 132 ms QT Int : 358 ms P-R-T Axes : 066 -42 091 degrees QTc Int : 482 ms Sinus tachycardia Left axis deviation Non-specific intra-ventricular conduction block Abnormal ECG When compared with ECG of 05-AUG-2019 01:30, Non-specific intra-ventricular conduction block has replaced Left bundle branch block Confirmed by SAMRA CLOUD ([id number]), supervising editor trailer ITZEL QUAN ([id number]) on 09/17/2019 1:53:33 PM Referred By: JON Confirmed By:SAMRA CLOUD
--- NOTE | 2019-09-03 10:55 | CT_ITS ---
STUDY: CT BRAIN WITHOUT CONTRAST REASON FOR EXAM: Female, 64 years old. AMS X 3DAYS, RECENT DX PE RADIATION DOSAGE (If Supplied By Facility): CTDIvol = ( 44.99 ) mGy, DLP = ( 812.98 ) mGycm TECHNIQUE: Transaxial CT imaging of the brain was performed without administration of intravenous contrast material. Individualized dose optimization techniques were used for this CT. COMPARISON: Comparison is made with prior study dated July 27, 2018. FINDINGS: Normal soft tissue structures. Normal calvarium. There is mild cerebral atrophy with widening of the extra-axial spaces and ventricular dilatation. There are areas of decreased attenuation within the white matter tracts of the supratentorial brain, consistent with microvascular disease changes. Normal basal ganglia and thalami. Normal brainstem. Normal cerebellum. There is no intracranial hemorrhage. There are no findings of an acute ischemic infarction. Atherosclerotic calcification of the cavernous portions of the internal carotid arteries bilaterally. Normal visualized paranasal sinuses. CT/Brain/Head without Contrast IMPRESSION: Chronic involutional changes of the brain. Electronically Signed: Doug Brown, at 12:21 EDT , Service support ,
--- NOTE | 2019-09-03 10:55 | RAD_ITS ---
STUDY: X-RAY CHEST REASON FOR EXAM: Female, 64 years old. altered mental status, cough, dark urin TECHNIQUE: Single AP portable view of the chest. COMPARISON: 08/03/2018 FINDINGS: Interval removal of the tunneled left internal jugular dialysis catheter. Poor inspiration with some bibasilar atelectasis. There is no demonstrated pleural abnormality. There is moderate cardiac enlargement. Normal mediastinum and josselin. Normal visualized pulmonary arteries. Normal visualized aortic arch and descending thoracic aorta. Normal visualized thoracic spine. Normal visualized ribs, clavicles, and shoulders. There is no demonstrated abnormality of the visualized soft tissue structures of the upper abdomen. RAD/Chest 1 View (Portable) IMPRESSION: 1. Interval removal of tunneled left internal jugular dialysis catheter and right upper extremity PICC. 2. Poor inspiration with some bibasilar atelectasis. 3. Cardiomegaly. Electronically Signed: Gary Perkins MD at 11:58 EDT Tel , Service support ,
--- NOTE | 2019-09-03 10:56 | CT_ITS ---
STUDY: CT ABDOMEN AND PELVIS WITHOUT CONTRAST REASON FOR EXAM: Female, 64 years old. LOW ABD TENDERNESS RADIATION DOSAGE (If Supplied By Facility): CTDIvol = ( 22.52 ) mGy, DLP = ( 1142.21 ) mGycm TECHNIQUE: Transaxial images were obtained from the dome of the diaphragm to the symphysis pubis without oral contrast, and without intravenous contrast. Sagittal and coronal images were reconstructed. Individualized dose optimization techniques were used for this CT. COMPARISON: Comparison is made with prior examination dated August 05, 2019. FINDINGS: There now is evidence of moderate degree of bilateral pleural effusions with the right lower lobe infiltrate and atelectasis at the left lung base. The visualized portions of the heart are within normal limits. Normal liver. Density seen within the common bile duct suggestive of sludge. Normal spleen. Normal pancreas. Normal bilateral adrenal glands. Normal right kidney. Normal left kidney. Normal visualized stomach. Minimally dilated small bowel loops. There is evidence of dilatation of the entire colon with gas and fecal material. The appendix is visualized and appears normal. There is diffuse atherosclerotic calcification of the abdominal aorta, without a demonstrated aneurysm. There is an IVC filter in place. Normal retroperitoneum. A Landin catheter is seen within the urinary bladder. The urinary bladder is empty. There is evidence of a diffuse bladder wall thickening. Diffuse edematous changes within the subcutaneous tissues of the abdominal wall suggestive of a subcutaneous edema. There are diffuse degenerative changes of the visualized lumbar spine. Osteoarthritis of the both hip joints with possible avascular necrosis. CT/Abdomen/Pelvis without Cont IMPRESSION: Moderate degree of bilateral pleural effusions with underlying right lower lobe infiltration and the atelectasis at the left lung base. Gaseous distention of the colon with mild dilatation of small bowel loops. An ileus pattern. Ruled out. Increased density within the gallbladder lumen suggestive of sludge. Edematous changes of the subcutaneous fat of the abdominal wall. Electronically Signed: Doug Brown, at 12:36 EDT , Service support ,
[2019-09-03 11:14] LABS: Absolute Lymphocyte Count 0.87 X10^3/uL (0.83-4.51); Absolute Neutrophil Count 4.8 X10^3/uL (2.0-7.7); Basophil# 0.03 X10^3/uL; Basophil% 0.4 % (0-1); Eosinophil# 0.01 X10^3/uL; Eosinophils% 0.1 % (0-5); Hematocrit 35.3 % (37-47); Hemoglobin 9.9 g/dL (12.0-15.0); Lymphocyte # 0.87 X10^3/ul (4.0); Lymphocyte % 12.8 % (19-41); Mean Corpuscular Hgb 22.3 pg (27.0-32.0); Mean Corpuscular Volume 79.5 fL (81-99); Mean Platelet Vol. 9.7 fl (6.2-12.0); Monocyte# 1.01 X10^3/uL; Monocyte% 14.9 % (0-10); NRBC Flagged by Analyzer 0.7 % (0-5); Neutrophil # 4.84 X10^3/uL (2.7-7.7); Neutrophil % 71.5 % (47-70); POSITIVE MORPHOLOGY YES; Platelet Count 409 K/mm3 (150-450); RBC Distribution Width CV 24.2 % (11.6-14.6); RBC Distribution Width SD 66.1 fl (35.1-43.9); Red Blood Count 4.44 M/mm3 (4.2-5.4); White Blood Count 6.8 K/mm3 (4.4-11.0)
[2019-09-03 11:17] LABS: Differential Indicated SCAN CRITERIA MET
--- NOTE | 2019-09-03 11:18 | ED.VIS.GEN ---
History of Present Illness Chief Complaint: Alt LOC Narrative: Patient presenting secondary to altered mental status. Patient has a underlying history of coronary artery disease with cardiomyopathy, liver disease, hypertension, inflammatory bowel disease, DVT with recent complication of cerulea dolens and popliteal artery occlusion about a month ago. Patient apparently is getting home occupational therapy since her discharge. Over the course of the last 5 days she has had a functional decline. Occupational Therapy was there today, and stated that she was significantly confused. Apparently the patient is just been feeling generally ill over the course of the last 5 days. No specific reports of vomiting diarrhea cough or fever, but the patient does have inappropriate speech and hallucinations currently. Additional history was unable to be obtained from the patient and the patient's fianc? was unavailable via telephone. Past Medical History - Allergies and Home Meds Allergies/Adverse Reactions: Allergies duloxetine HCl [From Cymbalta] Adverse Reaction (Verified 08/05/19 01:02) Other pt doesn't remember morphine Adverse Reaction (Verified 08/05/19 01:02) Itching pramipexole di-HCl [From Mirapex] Adverse Reaction (Verified 08/05/19 01:02) Other pt doesn't remember Sulfa (Sulfonamide Antibiotics) Adverse Reaction (Verified 08/05/19 01:02) Unknown tramadol HCl [From Ultram] Adverse Reaction (Verified 08/05/19 01:02) Itching varenicline [From Chantix] Adverse Reaction (Verified 08/05/19 01:02) Unknown Past Medical History: - - Inflammatory bowel disease, DVT, cerulea dolens, hypertension, liver disease, cardiomyopathy, coronary artery disease Surgical History: - - All teeth pulled put. Smoking Status: Unknown if ever smoked - Family History Maternal Family History: Family History (Last Reviewed 08/05/19 @ 05:[address] Som Washington MD) Other Adopted Family History: Reports: - - Patient was adopted Paternal Family History: Family History (Last Reviewed 08/05/19 @ 05:[address] Som Washington MD) Other Adopted Family History: Reports: No pertinent history, - - Patient was adopted Review of Systems ROS: Unable to Obtain Physical Exam Vital Signs/Narrative: Vital Signs Temp Pulse Resp BP Pulse Ox 09/03/19 10:55 97.6 F L 66 17 119/73 100 09/03/19 10:48 96.5 F L 110 H 23 H 119/73 99 Inital Vital Signs reviewed: Yes General: Obese, - - Patient is awake, confused, speaking inappropriately, but does not appear to have slurred words. She is moving all extremities. GCS is 12 Head: Normocephalic, Atraumatic Eyes: Perrl, EOMI ENT: Moist mucous membranes Neck: Supple, Nontender Cardiovascular: Regular rhythm, No murmurs, Tachycardia, - - Patient has 1+ radial pulses that are bilaterally symmetric. Lower extremity pulses were not able to be palpated due to edema, but I was able to Doppler a left DP pulse, and a right PT pulse Respiratory: No distress, CTA bilaterally, Chest nontender Abdomen: Soft, Tender - Lower abdomen without guarding or rebound Extremities: - - Left arm is edematous compared to the right arm. +2. There is +2 lower extremity pitting edema that is bilaterally symmetric. Skin: - - Petechia are noted on the patient's left arm and the left leg Neurological: - - Patient is awake, moving all extremities, speaking and appropriately Diagnostic/Tx/Re-eval Clinical Impression(s) from Imaging Studies Brain CT 09/03/19 10:55 IMPRESSION: Chronic involutional changes of the brain. Electronically Signed: Doug Brown at 12:21 EDT , Service support , Chest X-Ray 09/03/19 10:55 IMPRESSION: 1. Interval removal of tunneled left internal jugular dialysis catheter and right upper extremity PICC. 2. Poor inspiration with some bibasilar atelectasis. 3. Cardiomegaly. Electronically Signed: Gary Perkins MD at 11:58 EDT Tel , Service support , Abdomen/Pelvis CT 09/03/19 10:56 IMPRESSION: Moderate degree of bilateral pleural effusions with underlying right lower lobe infiltration and the atelectasis at the left lung base. Gaseous distention of the colon with mild dilatation of small bowel loops. An ileus pattern. Ruled out. Increased density within the gallbladder lumen suggestive of sludge. Edematous changes of the subcutaneous fat of the abdominal wall. Electronically Signed: Doug Brown, at 12:36 EDT , Service support , Laboratory Data 09/03/19 09/03/19 09/03/19 11:00 11:00 11:00 WBC 6.8 RBC 4.44 Hgb 9.9 L Hct 35.3 L MCV 79.5 L MCH 22.3 L MCHC 28.0 L RDW Std Deviation 66.1 H RDW Coeff of Gabriel 24.2 H Plt Count 409 MPV 9.7 Immature Gran % (Auto) 0.300 Neut % (Auto) 71.5 H Lymph % (Auto) 12.8 L [place] % (Auto) 14.9 H Eos % (Auto) 0.1 Baso % (Auto) 0.4 Absolute Neuts (auto) 4.8 Absolute Lymphs (auto) 0.87 Nucleated RBC % 0.7 Differential Comment SCANNED Hypochromasia 2+ Poikilocytosis 1+ Anisocytosis 3+ Microcytosis 1+ Macrocytosis 2+ Ovalocytes 1+ Schistocytes 1+ PT 107.7 H INR 14.2 H* APTT 47.5 H Specimen Type Sample Site pH Bicarbonate Actual POC Total CO2 Base Excess O2 Saturation ABG pCO2 ABG pO2 Shahbaz Test O2 Delivery Device Liter Flow Blood Gas Notified Whom Blood Gas Notified Time Sodium 136 Potassium 5.6 H Chloride 105 Carbon Dioxide 21.0 Anion Gap 10 BUN 85 H Creatinine 2.41 H Estim Creat Clear Calc 20.66 Est GFR (MDRD) Af Amer 26 L Est GFR (MDRD) Non-Af 21 L BUN/Creatinine Ratio 35.3 H Glucose 172 H Lactic Acid Calcium 8.6 Total Bilirubin 1.50 H Direct Bilirubin 0.94 H AST 377 H ALT 304 H Alkaline Phosphatase 177 H Ammonia Total Creatine Kinase Troponin I 0.048 H B-Natriuretic Peptide Total Protein 7.0 Albumin 2.7 L Globulin 4.3 H Urine Color Urine Clarity Urine pH Ur Specific [place] Urine Protein Urine Glucose (UA) Urine Ketones Urine Occult Blood Urine Nitrite Urine Bilirubin Urine Urobilinogen Ur Leukocyte Esterase Urine RBC Urine WBC Ur Squamous Epith Cells Urine Bacteria Urine Mucus Urine Opiates Screen Urine Methadone Screen Ur Barbiturates Screen Ur Phencyclidine Scrn Ur Amphetamines Screen U Methamphetamin-MDMA U Benzodiazepines Scrn Urine Cocaine Screen U Cannabinoids Screen Ur Drug Screen Comment Ethyl Alcohol 09/03/19 09/03/19 09/03/19 11:00 11:00 11:00 WBC RBC Hgb Hct MCV MCH MCHC RDW Std Deviation RDW Coeff of Gabriel Plt Count MPV Immature Gran % (Auto) Neut % (Auto) Lymph % (Auto) [place] % (Auto) Eos % (Auto) Baso % (Auto) Absolute Neuts (auto) Absolute Lymphs (auto) Nucleated RBC % Differential Comment Hypochromasia Poikilocytosis Anisocytosis Microcytosis Macrocytosis Ovalocytes Schistocytes PT INR APTT Specimen Type Sample Site pH Bicarbonate Actual POC Total CO2 Base Excess O2 Saturation ABG pCO2 ABG pO2 Shahbaz Test O2 Delivery Device Liter Flow Blood Gas Notified Whom Blood Gas Notified Time Sodium Potassium Chloride Carbon Dioxide Anion Gap BUN Creatinine Estim Creat Clear Calc Est GFR (MDRD) Af Amer Est GFR (MDRD) Non-Af BUN/Creatinine Ratio Glucose Lactic Acid 3.0 H* Calcium Total Bilirubin Direct Bilirubin AST ALT Alkaline Phosphatase Ammonia Total Creatine Kinase Troponin I B-Natriuretic Peptide 1138.1 H Total Protein Albumin Globulin Urine Color Urine Clarity Urine pH Ur Specific [place] Urine Protein Urine Glucose (UA) Urine Ketones Urine Occult Blood Urine Nitrite Urine Bilirubin Urine Urobilinogen Ur Leukocyte Esterase Urine RBC Urine WBC Ur Squamous Epith Cells Urine Bacteria Urine Mucus Urine Opiates Screen Urine Methadone Screen Ur Barbiturates Screen Ur Phencyclidine Scrn Ur Amphetamines Screen U Methamphetamin-MDMA U Benzodiazepines Scrn Urine Cocaine Screen U Cannabinoids Screen Ur Drug Screen Comment Ethyl Alcohol < 3.0 09/03/19 09/03/19 09/03/19 11:00 11:00 11:14 WBC RBC Hgb Hct MCV MCH MCHC RDW Std Deviation RDW Coeff of Gabriel Plt Count MPV Immature Gran % (Auto) Neut % (Auto) Lymph % (Auto) [place] % (Auto) Eos % (Auto) Baso % (Auto) Absolute Neuts (auto) Absolute Lymphs (auto) Nucleated RBC % Differential Comment Hypochromasia Poikilocytosis Anisocytosis Microcytosis Macrocytosis Ovalocytes Schistocytes PT INR APTT Specimen Type ART Sample Site R RADIAL pH 7.35 Bicarbonate Actual 21.0 L POC Total CO2 22 Base Excess -5 L O2 Saturation 97 ABG pCO2 38.5 ABG pO2 101 H Shahbaz Test POS O2 Delivery Device Nasal Can Liter Flow 4.0 Blood Gas Notified Whom ED MD Blood Gas Notified Time 1114 Sodium Potassium Chloride Carbon Dioxide Anion Gap BUN Creatinine Estim Creat Clear Calc Est GFR (MDRD) Af Amer Est GFR (MDRD) Non-Af BUN/Creatinine Ratio Glucose Lactic Acid Calcium Total Bilirubin Direct Bilirubin AST ALT Alkaline Phosphatase Ammonia 20.0 Total Creatine Kinase 274 H Troponin I B-Natriuretic Peptide Total Protein Albumin Globulin Urine Color Urine Clarity Urine pH Ur Specific [place] Urine Protein Urine Glucose (UA) Urine Ketones Urine Occult Blood Urine Nitrite Urine Bilirubin Urine Urobilinogen Ur Leukocyte Esterase Urine RBC Urine WBC Ur Squamous Epith Cells Urine Bacteria Urine Mucus Urine Opiates Screen Urine Methadone Screen Ur Barbiturates Screen Ur Phencyclidine Scrn Ur Amphetamines Screen U Methamphetamin-MDMA U Benzodiazepines Scrn Urine Cocaine Screen U Cannabinoids Screen Ur Drug Screen Comment Ethyl Alcohol 09/03/19 09/03/19 11:25 11:25 WBC RBC Hgb Hct MCV MCH MCHC RDW Std Deviation RDW Coeff of Gabriel Plt Count MPV Immature Gran % (Auto) Neut % (Auto) Lymph % (Auto) [place] % (Auto) Eos % (Auto) Baso % (Auto) Absolute Neuts (auto) Absolute Lymphs (auto) Nucleated RBC % Differential Comment Hypochromasia Poikilocytosis Anisocytosis Microcytosis Macrocytosis Ovalocytes Schistocytes PT INR APTT Specimen Type Sample Site pH Bicarbonate Actual POC Total CO2 Base Excess O2 Saturation ABG pCO2 ABG pO2 Shahbaz Test O2 Delivery Device Liter Flow Blood Gas Notified Whom Blood Gas Notified Time Sodium Potassium Chloride Carbon Dioxide Anion Gap BUN Creatinine Estim Creat Clear Calc Est GFR (MDRD) Af Amer Est GFR (MDRD) Non-Af BUN/Creatinine Ratio Glucose Lactic Acid Calcium Total Bilirubin Direct Bilirubin AST ALT Alkaline Phosphatase Ammonia Total Creatine Kinase Troponin I B-Natriuretic Peptide Total Protein Albumin Globulin Urine Color Yellow Urine Clarity Clear Urine pH 5.0 Ur Specific [place] 1.025 Urine Protein Negative Urine Glucose (UA) Normal Urine Ketones Negative Urine Occult Blood 50 H Urine Nitrite Negative Urine Bilirubin 1 H Urine Urobilinogen 1 H Ur Leukocyte Esterase 25 H Urine RBC 5-10 SEEN Urine WBC 0-5 SEEN Ur Squamous Epith Cells 0 SEEN Urine Bacteria 0 SEEN Urine Mucus 0 SEEN Urine Opiates Screen POSITIVE H Urine Methadone Screen NEGATIVE Ur Barbiturates Screen NEGATIVE Ur Phencyclidine Scrn NEGATIVE Ur Amphetamines Screen NEGATIVE U Methamphetamin-MDMA NEGATIVE U Benzodiazepines Scrn NEGATIVE Urine Cocaine Screen NEGATIVE U Cannabinoids Screen POSITIVE H Ur Drug Screen Comment Ethyl Alcohol - EKG Follow-up EKG Interpretation: - - Sinus tachycardia with a rate of 109. Left axis deviation and left bundle branch block morphology is noted. Inferior Q waves that were present on prior EKG. No evidence of acute ischemia. - Medical Decision Making Patient presented secondary to altered mental status. She is protecting her airway well, and was oxygenating well on supplemental O2 through nasal cannula, so the patient was not intubated. Broad work-up was obtained on the patient. CT imaging of the brain was found to be negative. Chest x-ray by my personal review as well as radiology shows cardiomegaly. CT abdomen and pelvis was performed due to the patient having pain on palpation, shows an ileus and bilateral pleural effusions. CBC shows a hemoglobin of 9.9 with no leukocytosis normal platelet counts. Chemistry shows hyperkalemia at 5.6, acute renal insufficiency with BUN and creatinine of 85 and 2.4 which is above the patient's baseline. Lactic acid was 3. Troponin indeterminately elevated at 0.048, BNP grossly elevated at 1138. Patient's INR was profoundly elevated at 14. Patient was given gentle fluid resuscitation given her concomitant renal injury as well as congestive heart failure. She was given vitamin K. As I do not have a source of infection, the patient was not given antibiotics. Patient's altered mental status potentially is secondary to her uremia which can be a result of her congestive heart failure. I do not have a specific source for the patient's elevated coagulation profile, but she is not actively bleeding at this time. This could potentially due to liver dysfunction as the patient has had a history of this in the past, although she does not have a profound transaminitis at this time. I believe the patient requires admission to the intensive care unit. I will discuss this with hospitalist. I discussed patient's case with the hospitalist, Dr Locke, and he states that secondary to the patient's recent admission at [facility] he would prefer that the patient be transferred there as they have easier access to records. I discussed patient's case with the [facility] transfer line, and they informed me that there are not available intensive care beds at their facility currently. I was inclined to discuss this again with Dr. Locke, who requested that the patient be transferred within the [facility] system then for ease of access to records. I discussed this with the transfer line who did accept the patient to [facility] - Critical Care Time Critical care time (excluding procedures): 30-74 minutes ED Disposition - Plan for ED Patient: Disposition: Acute Care Hospital - Other Diagnosis: Acute renal insufficiency, Metabolic encephalopathy, CHF exacerbation, Supratherapeutic INR
[2019-09-03 11:33] LABS: Bacteria 0 SEEN /hpf (None Seen); Mucous, Urine 0 SEEN /hpf (<or=2+); Squamous Epithelial Cells - UA 0 SEEN /hpf (5-10)
[2019-09-03 11:33] LABS: AST(SGOT) 377 U/L (15-37); Alanine Aminotransfer ALT/SGPT 304 U/L (13-56); Albumin, Serum 2.7 g/dL (3.2-5.0); Alkaline Phosphatase 177 U/L (45-117); Anion Gap 10 (5-15); BUN 85 mg/dL (7-18); BUN/Creat Ratio 35.3 RATIO (10-20); Bilirubin, Direct 0.94 mg/dL (0.00-0.30); Calcium,Total 8.6 mg/dL (8.5-10.1); Chloride 105 mmol/L (98-107); Creatinine, Serum 2.41 mg/dL (0.55-1.02); EST Glomerular Filtration Rate 21 mL/min (>60); Est Glom Filt Rate - Afr Amer 26 mL/min (>60); Estimated Creatinine Clearance 20.66 ml/min; Globulin 4.3 g/dL (2.2-4.2); Glucose 172 mg/dL (74-106); Potassium 5.6 mmol/L (3.5-5.1); Sodium Level 136 mmol/L (136-145)
[2019-09-03 11:35] LABS: Color, Urine Yellow (Yellow); Glucose, Dipstick Normal (Normal); Ketone-Dipstick Negative (Negative); Leukocyte Esterase-Dipstick 25 /ul (Negative); Nitrite-Dipstick Negative (Negative); Occult Blood-Urine 50 /ul (Negative); Protein-Dipstick Negative (Negative); Specific Gravity, Urine 1.025 (1.002-1.030); Urine Clarity Clear (Clear); Urine Urobilinogen 1 mg/dl (Normal)
[2019-09-03 11:37] LABS: CPK Total, Creatine Kinase 274 U/L (26-192)
[2019-09-03 11:39] LABS: Urine Bilirubin Dipstick 1 mg/dL (Negative)
[2019-09-03 11:39] LABS: Partial Thromboplast Time 47.5 Seconds (24.1-36.2); Prothrombin Time (Protime)PT. 107.7 SECONDS (11.7-14.9)
[2019-09-03 11:40] LABS: Base Excess -5 mmol/L (-2 to +2); PO2 101 mmHG (75-100); SO2 97 % (95-99); Total Carbon Dioxide 22 mmol/L; pCO2 38.5 mmHg (35-45); pH 7.35 (7.35-7.45)
[2019-09-03 11:45] LABS: White Blood Cells 0-5 SEEN /hpf (0-5)
[2019-09-03 11:46] LABS: BNP,B-Type NATRIURETIC PEPTIDE 1138.1 pg/mL (0-100)
[2019-09-03 11:46] LABS: Red Blood Cells-Urine 5-10 SEEN /hpf (0-5)
[2019-09-03 11:47] LABS: Amphetamine Urine VISTA NEGATIVE (<1000 ng/mL); Barbiturate Urine VISTA NEGATIVE (< 200 ng/mL); Benzodiazepine Urine VISTA NEGATIVE (< 200 ng/mL); Cocaine Urine VISTA NEGATIVE (< 300 ng/mL); Ecstacy Urine VISTA NEGATIVE (< 500 ng/mL); Methadone Urine VISTA NEGATIVE (< 300 ng/mL); PCP Urine VISTA NEGATIVE (< 25 ng/mL); THC Urine VISTA POSITIVE (< 50 ng/mL); Vista UDS pH Range 5
[2019-09-03 11:49] LABS: Differential Comment SCANNED
[2019-09-03 11:50] LABS: Anisocytosis 3+; Hypochromasia 2+; Macrocytosis 2+; Microcytosis 1+; Ovalocyte 1+; Poikilocytosis 1+; Schistocytes 1+
[2019-09-03 11:53] LABS: Alcohol, Blood (Medical)-Serum < 3.0 mg/dL
[2019-09-03 12:02] LABS: International Normalized Ratio 14.2
[2019-09-03] MEDS: Lactated Ringers 1,000 ML 999 ML IV (12:12)
[2019-09-03 12:27] LABS: Allen Test POS; Blood Gas Specimen Type ART; O2 Delivery Device Nasal Can; SITE R RADIAL
[2019-09-03 12:28] LABS: Time Given 1114
[2019-09-03 15:07] LABS: Reflex Lactate? Y
--- NOTE | 2019-09-03 15:49 | ED.RN ---
called pt's friend, Tacho to inform of transfer to [facility].
[2019-09-03 16:08] LABS: Lactic Acid 2.2 mmol/L (0.4-1.9)
== END 2019-09-03 16:53 | disposition short-term general hospital (02) ==
PROVIDERS: Emergency Provider Emergency Medicine; PCP Internal Medicine
DX: N28.9 Disorder of kidney and ureter, unspecified (principal); G93.41 Metabolic encephalopathy; I50.9 Heart failure, unspecified; R79.1 Abnormal coagulation profile; I25.10 Atherosclerotic heart disease of native coronary artery without angina pectoris
CPT/HCPCS: 36415; 36600; 51702; 70450; 71045; 74176; 80048; 80076; 80307; 80320; 81001; 82140; 82550; 82803; 83605; 83880; 84484; 85025; 85610; 85730; 87040; 93005; 96360; 96361; 96365; 99285; J7120; A4216; G0480; J3490